=== PATIENT | female | born 1945 | race Caucasian/White ===

== ENCOUNTER → 2023-08-12 13:02 | Outpatient (REF) | payer MEDICARE, SELFPAY ==
[2023-08-12 13:35] LABS: Hemoglobin 9.3 g/dL (12.0-16.0); Mean Corp Hgb Conc. 33.2 g/dL (33.0-37.0); Mean Corpuscular Hgb 33.6 pg (27.0-31.0); Mean Corpuscular Volume 101.1 fL (81.0-99.0); Mean Platelet Volume 10.7 fL (7.4-10.4); Platelet Count 149 10^3/uL (130-400); Red Blood Cell Count 2.77 10^6/uL (4.20-5.40); Red Cell Dist. Width 21.4 % (11.5-14.5); White Blood Cell Count 1.7 10^3/uL (4.8-10.8)
[2023-08-12 14:09] LABS: Absolute Neutrophils -Man Diff 0.5 10^3/uL (1.4-6.5); Band Neutrophils 0 % (0-3); Eosinophils 2 % (0-6); Lymphocytes 35 % (20-51); Monocytes 25 % (2-9); Myelocytes 3 % (-); Platelets Checked Yes; Segmented Neutrophils 34 % (42-75)
[2023-08-12 14:10] LABS: Anisocytosis 1+; Normal RBC Morphology No; Ovalocytes Slight; Total Cells Counted 100
[2023-08-12 15:08] LABS: ALT (SGPT) 19 U/L (0-35); AST (SGOT) 35 U/L (14-36); Albumin 3.7 g/dl (3.5-5.0); Alkaline Phosphatase 85 U/L (38-126); Blood Urea Nitrogen 20 mg/dl (7-17); Calcium 9.3 mg/dl (8.4-10.2); Carbon Dioxide 22 mmol/L (22-30); Chloride 112 mmol/L (98-107); Glucose 82 mg/dl (70-99); Potassium 3.9 mmol/L (3.5-5.1); Sodium 139 mmol/L (135-145); Total Bilirubin 0.5 mg/dl (0.2-1.3); Total Protein 6.5 g/dl (6.3-8.2); eGFR > 60.00
== END ==
LOC: REG 13:02
PROVIDERS: ATTENDING PHYSICIAN Internal Medicine Hematology & Oncology; FAMILY PHYSICIAN Student in an Organized Health Care Education/Training Program
DX: C20 Malignant neoplasm of rectum (principal)
CPT/HCPCS: 36415; 80053; 85025

== ENCOUNTER → 2023-08-19 11:05 | Outpatient (REF) | payer MEDICARE, SELFPAY ==
[2023-08-19 11:59] LABS: % Basophils 0.7 % (0-2); % Eosinophils 1.9 % (0-6); % Immature Granulocytes 1.4 % (0-0.5); % Lymphocytes 13.2 % (20.5-51.1); % Monocytes 13.4 % (1.7-9.3); % Neutrophils 69.4 % (42.2-75.2); Absolute Eosinophils 0.1 10^3/uL (0-0.7); Absolute Immature Granulocytes 0.1 10^3/uL (0-0.05); Absolute Lymphocytes 0.6 10^3/uL (1.2-3.4); Absolute Monocytes 0.6 10^3/uL (0.1-0.6); Hematocrit 28.5 % (37.0-47.0); Hemoglobin 9.3 g/dL (12.0-16.0); Mean Corp Hgb Conc. 32.6 g/dL (33.0-37.0); Mean Corpuscular Hgb 33.9 pg (27.0-31.0); Mean Platelet Volume 11.1 fL (7.4-10.4); Nucleated Red Blood Cells % 0 %; Platelet Count 146 10^3/uL (130-400); Red Blood Cell Count 2.74 10^6/uL (4.20-5.40); Red Cell Dist. Width 19.1 % (11.5-14.5); White Blood Cell Count 4.3 10^3/uL (4.8-10.8)
[2023-08-19 12:51] LABS: ALT (SGPT) 15 U/L (0-35); AST (SGOT) 32 U/L (14-36); Albumin 3.5 g/dl (3.5-5.0); Alkaline Phosphatase 76 U/L (38-126); Blood Urea Nitrogen 32 mg/dl (7-17); Calcium 9.8 mg/dl (8.4-10.2); Carbon Dioxide 25 mmol/L (22-30); Chloride 105 mmol/L (98-107); Glucose 89 mg/dl (70-99); Potassium 4.3 mmol/L (3.5-5.1); Sodium 138 mmol/L (135-145); Total Bilirubin 0.5 mg/dl (0.2-1.3); Total Protein 6.3 g/dl (6.3-8.2); eGFR > 60.00
== END ==
LOC: REG 11:05
PROVIDERS: ATTENDING PHYSICIAN Internal Medicine Hematology & Oncology; FAMILY PHYSICIAN Student in an Organized Health Care Education/Training Program
DX: C20 Malignant neoplasm of rectum (principal)
CPT/HCPCS: 36415; 80053; 85025

== ENCOUNTER → 2023-09-02 12:00 | Outpatient (REF) | payer MEDICARE, SELFPAY ==
[2023-09-02 12:56] LABS: % Basophils 1.2 % (0-2); % Eosinophils 1.2 % (0-6); % Immature Granulocytes 0.3 % (0-0.5); % Lymphocytes 14.6 % (20.5-51.1); % Monocytes 13.6 % (1.7-9.3); % Neutrophils 69.1 % (42.2-75.2); Absolute Lymphocytes 0.5 10^3/uL (1.2-3.4); Absolute Monocytes 0.4 10^3/uL (0.1-0.6); Absolute Neutrophils 2.2 10^3/uL (1.4-6.5); Hematocrit 24.1 % (37.0-47.0); Hemoglobin 7.9 g/dL (12.0-16.0); Mean Corp Hgb Conc. 32.8 g/dL (33.0-37.0); Mean Corpuscular Hgb 33.3 pg (27.0-31.0); Mean Corpuscular Volume 101.7 fL (81.0-99.0); Mean Platelet Volume 11.9 fL (7.4-10.4); Nucleated Red Blood Cells % 0 %; Platelet Count 80 10^3/uL (130-400); Red Blood Cell Count 2.37 10^6/uL (4.20-5.40); Red Cell Dist. Width 18.6 % (11.5-14.5); White Blood Cell Count 3.2 10^3/uL (4.8-10.8)
[2023-09-02 13:32] LABS: ALT (SGPT) 21 U/L (0-35); AST (SGOT) 39 U/L (14-36); Albumin 3.5 g/dl (3.5-5.0); Alkaline Phosphatase 77 U/L (38-126); Blood Urea Nitrogen 25 mg/dl (7-17); Calcium 9.2 mg/dl (8.4-10.2); Carbon Dioxide 20 mmol/L (22-30); Chloride 112 mmol/L (98-107); Glucose 88 mg/dl (70-99); Potassium 4.1 mmol/L (3.5-5.1); Sodium 138 mmol/L (135-145); Total Bilirubin 0.5 mg/dl (0.2-1.3); Total Protein 6.2 g/dl (6.3-8.2); eGFR > 60.00
== END ==
LOC: REG 12:00
PROVIDERS: ATTENDING PHYSICIAN Internal Medicine Hematology & Oncology
DX: C20 Malignant neoplasm of rectum (principal)
CPT/HCPCS: 36415; 80053; 85025

== ENCOUNTER 2023-09-05 09:19 | Outpatient (RCR) | payer MEDICARE, SELFPAY ==
[2023-09-05] VITALS (7 sets, daily range): BP systolic 90–110; BP diastolic 51–66
--- NOTE | 2023-09-05 14:35 | PTCARENOTE ---
1300: Pt receiving second unit of PRBC and developed AFIB with heart rate as high as 150. LUZ MARINA Oswald assessment patient and sent patient to the ER. Dr. Henderson aware.
--- NOTE | 2023-09-05 15:39 | W.PN.UPDATE ---
Update Note
- Progress Note Update
09/05/23 1300
Patient seen at bedside receiving blood transfusion. Per treating [facility] EDWARD Cantrell patient's HR upon admission was 60s and now up into the 150s. Patient assessed. Denies SOB, chest pain, nausea, pain, flutters, palpitations. Has history of
afib after transfusion. On no anticoagulants. On PE HR irregular consistent with possible arrythmia or afib and ROS negative. Patient [place] [facility] was receiving 2nd unit when symptoms occurred. Came to appt alone and drove self to appt. Reports
taking anti-nausea medication this am. Being treated for rectal ca per Dr. Henderson. Chemo pump to be d/c by RN at [facility] at 2pm today as treatment completed and was discontinued by [facility] EDWARD Polk. Plan to send to ER for evaluation.
Beatriz and ER made aware. Patient in agreement. Contact information provided.
--- NOTE | 2023-09-11 17:29 | EDRN ---
This justowriter operator is completing the electronic documentation for [facility] only and did not provide direct patient care during this visit. See the scanned blood transfusion form in ED reports.
== END 2023-09-05 23:59 | disposition home or self-care (01) ==
LOC: OID 09:19
PROVIDERS: ATTENDING PHYSICIAN Internal Medicine Hematology & Oncology
DX: C20 Malignant neoplasm of rectum (principal)
CPT/HCPCS: 36430; 86850; 86900; 86901; 86920; P9016

== ENCOUNTER 2023-09-05 13:39 | Emergency (ER) | payer MEDICARE, SELFPAY ==
[2023-09-05] VITALS (10 sets, daily range): BP systolic 82–106; BP diastolic 53–71; BMI 26.4
--- NOTE | 2023-09-05 14:20 | ED.GENMED ---
History of Present Illness
General
Chief Complaint: Heart Rate Problem
Source: patient and other ([facility] nurse)
Exam Limitations: none
Time Seen by Provider: 09/05/23 13:54
Nursing documentation reviewed up to this point in time: agreed with
Travel History
Have you had any contact with someone who has COVID-19?: No
Do you have any symptoms of coronavirus? Fever > 100 degrees, chills, cough, shortness of breath, sore throat, loss of taste or smell, muscle aches, or headache?: No
History of Present Illness
History of Present Illness:
78-year-old female present to the emergency department due to rapid heart rate. She was getting a blood transfusion after chemotherapy, and the RN noticed her heart rate was in the 150s on exam. She was sent to the emergency department. Patient
denies any complaints.
Past History
Past History
ED Past Medical History: Arrthythmia, Hypothyroidism and Other (Aortic stenosis)
ED Past Surgical History: Appendectomy, Tonsilectomy and Other (Laparoscopy with cyst aspiration)
Social History
Tobacco: Former smoker
Alcohol: None
Drug: None
Review of Systems
Review of Systems
Allergies reviewed?: Yes
All Other Systems: Not applicable
Constitutional: Reports no symptoms
EENT: Reports no symptoms
Respiratory: Reports no symptoms
Cardiac: Reports other (Rapid heart rate)
ABD/GI: Reports no symptoms
: Reports no symptoms
Musculoskeletal: Reports no symptoms
Skin: Reports no symptoms
Neurological: Reports dizzy
Endocrine: Reports no symptoms
Hematologic/Lymphatic: Reports no symptoms
Psychiatric: Reports no symptoms
Phy Exam
Physical Exam
Physical Exam:
Physical Exam
General: Blood pressure 88/53
Neck: supple. no meningeal signs. normal posterior pharynx
Heart: s1/s2 regular rate and rhythm, no murmur. equal radial
pulses.
HEENT: Pupils equal round reactive to light, EOMI
Lungs: no acute respiratory distress. clear bilaterally
Abdomen: normal bowel sounds. not tender. no CVAT
Neuro: alert and oriented. no focal neurological deficits cranial nerves II through XII intact
Skin: no rash
Psychiatric: well kept. interactive and cooperative
Extremities: no edema. no calf tenderness. negative homans. good distal pulses
Course
Orders/Labs/Results
Orders:
Orders
09/05/23 13:49
EKG [Electrocardiogram (*1)] Urgent
Reason for Study: Atrial Fibrillation
EKG- Treatment ONCE
Vital Signs
Initial and Last Documented VS:
Initial Vital Signs
Temp Pulse Resp Pulse Ox
98.8 F 87 18 100
09/05/23 14:01 09/05/23 14:01 09/05/23 14:01 09/05/23 14:01
Last Documented Vital Signs
Temp Pulse Resp BP Pulse Ox
99.1 F 85 18 100/67 98
09/05/23 14:58 09/05/23 15:15 09/05/23 15:15 09/05/23 15:15 09/05/23 14:58
MDM/Problems Addressed
Differential Diagnosis Includes:
Rapid atrial fibrillation, near syncope
MDM/Problems Addressed:
78-year-old female with episodic tachycardia, possibly rapid atrial fibrillation. Patient feels well after receiving blood transfusion. Will discharge to follow-up with oncology and primary care.
Chronic conditions affecting care: Arrhythmia and Cancer
Acute Exacerbation and/or Progression of Chronic Illness: Arrhythmia and Cancer
*Pulse Oximetry
Patient hypoxic: no
*EKG
Interpreted by ED Provider?: Yes
EKG Intrepretation Date: 09/05/23
EKG Intrepretation Time: 13:57
Interpretation: abnormal
Comparison EKG: no changes
Heart Rate: 96
Rate: normal
Rhythm: sinus
[place]: normal axis
Interval: normal interval
QRS Pattern: left vent hypertrophy
Ischemia: non-specific ST changes
*Activity Leader Interpretation
Rate: normal
Interpretation: normal
Heart Rate: 80
Rhythm: sinus
*Critical Care Note
Total Time (30-74mins, 75-104mins- exclusive of procedures): Not Applicable
Data Reviewed
Review of Other/Old Records Reveals: Labs (Prior hemoglobin 7.9 on 09/02/2023)
Source: records
Patient Management
Social determinants of health affecting care: Living situation and Strong social support
Escalation/DeEscalation of care consider admission/obs:
Admit not indicated
ED Attending Note
-
Portions of this chart may have been created with voice recognition software.� Occasional wrong word or��sound alike� substitutions may have occurred due to the inherent limitations of voice recognition software.
Discharge Plan
Departure
Patient Disposition: Home (Routine Discharge)
Date of Disposition: 09/05/23
Time of Disposition: 15:32
Patient with high blood pressure during this ER visit?: No
Condition: Good
Discharge Problem:
Atrial fibrillation with rapid ventricular response, Hypochromic microcytic anemia
Instructions: Atrial Fibrillation (DC)
Prescriptions:
No Action
sertraline [Zoloft] 25 mg Tablet
25 mg PO DAILY
Referrals:
Allyson Marie DO [Family Provider] - Call in 1-3 days for appt
Interventions
Interventions:
*Risk Screen - Suicide Last Done: 09/05/23 14:01
*General Assessment Last Done: 09/05/23 14:01
*Neglect/Abuse Screening Last Done: 09/05/23 14:01
ED- Fall Risk Assessment Last Done: 09/05/23 14:01
*ED COVID-19 Vaccine History Last Done: 09/05/23 14:01
ED- Cardiac Assessment Last Done: 09/05/23 14:01
ED- Pulmonary Assessment Last Done: 09/05/23 14:01
--- NOTE | 2023-09-05 15:55 | VATNOTE ---
deaccessed left port from [facility] per protocol.
== END 2023-09-05 16:16 | disposition home or self-care (01) ==
LOC: EMR 13:39
PROVIDERS: EMERGENCY PHYSICIAN Emergency Medicine; FAMILY PHYSICIAN Student in an Organized Health Care Education/Training Program
DX: I48.91 Unspecified atrial fibrillation (principal); D50.9 Iron deficiency anemia, unspecified; Z87.891 Personal history of nicotine dependence
CPT/HCPCS: 99284; 96374; 93005

== ENCOUNTER → 2023-09-16 12:36 | Outpatient (REF) | payer MEDICARE, SELFPAY ==
[2023-09-16 14:00] LABS: % Basophils 0.9 % (0-2); % Eosinophils 1.5 % (0-6); % Immature Granulocytes 0.3 % (0-0.5); % Lymphocytes 12.9 % (20.5-51.1); % Monocytes 12.6 % (1.7-9.3); % Neutrophils 71.8 % (42.2-75.2); Absolute Eosinophils 0.1 10^3/uL (0-0.7); Absolute Lymphocytes 0.4 10^3/uL (1.2-3.4); Absolute Monocytes 0.4 10^3/uL (0.1-0.6); Absolute Neutrophils 2.4 10^3/uL (1.4-6.5); Hemoglobin 7.8 g/dL (12.0-16.0); Mean Corp Hgb Conc. 33.9 g/dL (33.0-37.0); Mean Corpuscular Hgb 33.9 pg (27.0-31.0); Mean Platelet Volume 11.3 fL (7.4-10.4); Nucleated Red Blood Cells % 0 %; Platelet Count 73 10^3/uL (130-400); Red Cell Dist. Width 19.9 % (11.5-14.5); White Blood Cell Count 3.3 10^3/uL (4.8-10.8)
[2023-09-16 14:42] LABS: ALT (SGPT) 21 U/L (0-35); AST (SGOT) 39 U/L (14-36); Albumin 3.5 g/dl (3.5-5.0); Alkaline Phosphatase 72 U/L (38-126); Blood Urea Nitrogen 19 mg/dl (7-17); Calcium 9.2 mg/dl (8.4-10.2); Carbon Dioxide 24 mmol/L (22-30); Chloride 113 mmol/L (98-107); Glucose 111 mg/dl (70-99); Sodium 141 mmol/L (135-145); Total Bilirubin 0.6 mg/dl (0.2-1.3); eGFR > 60.00
[2023-09-16 14:52] LABS: Total Iron Binding Capacity 355 ug/dl (265-497)
[2023-09-16 15:17] LABS: Ferritin 88.2 ng/ml (11.1-264.0)
== END ==
LOC: REG 12:36
PROVIDERS: ATTENDING PHYSICIAN Internal Medicine Hematology & Oncology
DX: C20 Malignant neoplasm of rectum (principal)
CPT/HCPCS: 36415; 80053; 82728; 83550; 85025

== ENCOUNTER 2023-09-20 11:02 | Outpatient (RCR) | payer MEDICARE, SELFPAY ==
[2023-09-20 11:05] VITALS: BP 121/48
[2023-09-20 11:37] VITALS: BP 121/48
[2023-09-20 11:54] VITALS: BP 104/58
[2023-09-20 13:57] VITALS: BP 128/68
== END 2023-10-06 23:59 | disposition home or self-care (01) ==
LOC: OID 11:02
PROVIDERS: ATTENDING PHYSICIAN Internal Medicine Hematology & Oncology
DX: C20 Malignant neoplasm of rectum (principal)
CPT/HCPCS: 36430; 86850; 86900; 86901; 86920; P9016

== ENCOUNTER 2023-09-25 17:54 | Inpatient (IN) | payer MEDICARE, SELFPAY ==
[2023-09-25] VITALS (18 sets, daily range): BP systolic 88–138; BP diastolic 42–80; BMI 26.3
[2023-09-25 13:44] LABS: % Basophils 0.4 % (0-2); % Eosinophils 1.6 % (0-6); % Immature Granulocytes 1.6 % (0-0.5); % Lymphocytes 12.9 % (20.5-51.1); % Monocytes 7.7 % (1.7-9.3); % Neutrophils 75.8 % (42.2-75.2); Absolute Lymphocytes 0.3 10^3/uL (1.2-3.4); Absolute Monocytes 0.2 10^3/uL (0.1-0.6); Absolute Neutrophils 1.9 10^3/uL (1.4-6.5); Hematocrit 21.9 % (37.0-47.0); Hemoglobin 7.6 g/dL (12.0-16.0); Mean Corp Hgb Conc. 34.7 g/dL (33.0-37.0); Mean Corpuscular Hgb 34.2 pg (27.0-31.0); Mean Corpuscular Volume 98.6 fL (81.0-99.0); Nucleated Red Blood Cells % 0.8 %; Red Blood Cell Count 2.22 10^6/uL (4.20-5.40); Red Cell Dist. Width 19.3 % (11.5-14.5); White Blood Cell Count 2.5 10^3/uL (4.8-10.8)
--- NOTE | 2023-09-25 13:48 | CON.CRS ---
Consultation
-
Date/Time Consultation Requested: 09/25/2023, 13:40
Date/Time Consultation Performed: 09/25/2023, 14:00
Requesting Provider: Baljinder Marsh MD
Performing Provider: Arturo Tenorio MD
Reason for Consultation: rectal bleeding
Medical History
-
Chief Complaint: rectal bleeding
History of Present Illness:
78yo female with known rectal cancer presents from the ER from clinic by Dr. Tenorio. Initially she was add-on visit today for the evaluation of rectal bleeding. She was diagnosed in February 2023 with a [id number] (Stage IIIB) pMMR/MSI-L, mid-rectal
cancer that straddles the peritoneal reflection. She received chemoradiation that completed on 05/03/23. She just completed her 7th cycle of 9 (FOLFOX). She has been passing some blood per rectum approximately once per month but over the past 6
weeks there is dark and red blood with every bowel movement. She also notices some urgency related incontinence of both stool and urine. Her hemoglobin on 09/16/23 was 7.8 g/dL and her platelet count was 73,000. She received 2 units of blood. She
denies any abdominal pain, lightheadedness, dizziness, or chest pain. She has a history of severe aortic stenosis and is a candidate for a TAVR once her chemotherapy and restaging are complete. She is scheduled for cycle #8 on 10/02/2023. She
tolerated the regimen fairly well with minor paresthesias and some diarrhea, although she has a chronic history of loose stools. During exam in clinic, old and new blood was noted in the rectum under anoscopy. She was sent to the ER given the need
for further work-up.
Past Medical History
Past Medical History: Arrhythmias (afib), Cancer (rectal cancer) and Other (measles, h/o chicken pox. discoid lupus, osteoarthritis, h/o PNA, severe aortic stenosis)
Past Surgical History: Appendectomy, Tonsilectomy and Other (port placement)
Social History
Tobacco: Former Smoker (1ppd x 48 years)
Family History
Family History: Reviewed & Not Pertinent
Allergies / Home Medications
Allergy/AdvReac Type Severity Reaction Status Date / Time
Penicillins Allergy Hives Verified 09/25/23 13:27
Medication Instructions Recorded Confirmed Type
sertraline 25 mg tablet (Zoloft) 50 mg PO DAILY 04/09/23 09/20/23 History
Review of Systems
-
History Source: Patient
Abdomen/GI: Diarrhea and Bloody Stools
: Urgency
A 10 point review of systems was completed, and was negative except as per HPI.
Physical Exam
Vital Signs
Temp 98.4 F 09/25/23 13:24
Pulse 95 09/25/23 13:24
Resp Rate 18 09/25/23 13:24
Blood pressure 122/80 09/25/23 13:24
SaO2 100 09/25/23 13:24
Lab Results / Allergies
Allergy/AdvReac Type Severity Reaction Status Date / Time
Penicillins Allergy Hives Verified 09/25/23 13:27
Physical Exam
General: Well Developed, Well Nourished and No Apparent Distress
GI: Soft, Non Tender and Non Distended
Rectal: Other (mix of dark and bright red blood in rectum under anoscopy in the office earlier today, unable to visualize anything further)
Neuro: AO x 3
Data Reviewed
-
Old Records: Reviewed
Assessment / Plan
-
Assessment: 78yo female with known stage IIIB rectal cancer, currently undergoing chemotherapy prior to surgery, with known anemia s/p multiple transfusions, presents from the ED from clinic with BRB per rectum and fecal urgency
Plan:
Recommend labs - cbc, bmp, coags, type and screen and CEA level. Remain NPO for now. Possible flexible sigmoidoscopy by Dr. Tenorio either later today or tomorrow depending on labwork. Once resulted, plans from there, will follow.
[2023-09-25 14:02] LABS: ALT (SGPT) 24 U/L (0-35); AST (SGOT) 46 U/L (14-36); Albumin 3.7 g/dl (3.5-5.0); Alkaline Phosphatase 94 U/L (38-126); Blood Urea Nitrogen 24 mg/dl (7-17); Calcium 8.8 mg/dl (8.4-10.2); Carbon Dioxide 25 mmol/L (22-30); Chloride 109 mmol/L (98-107); Glucose 93 mg/dl (70-99); Potassium 3.5 mmol/L (3.5-5.1); Sodium 139 mmol/L (135-145); Total Bilirubin 0.6 mg/dl (0.2-1.3); Total Protein 6.2 g/dl (6.3-8.2); eGFR > 60.00
[2023-09-25 14:24] LABS: Mean Platelet Volume 12.4 fL (7.4-10.4); Platelet Count 64 10^3/uL (130-400)
--- NOTE | 2023-09-25 16:18 | HPS.HSE ---
Addendum entered and electronically signed by Bo Reed MD 09/25/23 17:22:
I saw and examined the patient.
The EXTERNAL GRINDER or PA's note was reviewed and I agree with the note.
Comment: History as noted and discussed with EXTERNAL GRINDER and examined. She is presently hemodynamically stable with ongoing episodes of bright red blood per rectum that has been a mix of dark intermittent clots prior/ she is now admitted to pursue further
diagnostic evaluation with flex sig in a.m. patient also with a known history of severe aortic stenosis that will require eventual TAVR once she has completed chemotherapy and staging of her rectal CA. Based on her previous presentation and the
need for hemodynamic stability we will plan on giving 1 unit of packed red blood cells tonight given the description of intermittent dark stools will also place on a PPI /she has signed a blood consent. Will need to watch her ongoing
thrombocytopenia which is down to 64,000 in the setting of underlying pancytopenia presumably from her chemotherapy/although presents with significant peripheral edema I do not think she is in fluid overload or signs of congestive heart failure with
may be in relation to underlying anemia and hypoalbuminemia/although given the degree of her aortic stenosis we will need to watch for CHF and if needs more than 1 unit of packed red blood cells would give IV diuresis in between units of blood.
Original Note:
Family Physician
-
Family Physician: Alexis Marie DO
Chief Complaint
-
rectal bleeding
History of Present Illness
78-year-old female complaining of rectal bleeding over the past month but over the past 6 weeks she states it has been dark and red with clots over the past few days.. On 09/16/2023 her hemoglobin was 7 8 with PLT 73 she did receive 2 units of
PRBCs. Her current hemoglobin is 7.6. She denies dizziness, headache, shortness of breath, cough, chest pain, palpitations, abdominal pain, nausea, vomiting, diarrhea, urinary symptoms she has known history of adenocarcinoma of the rectum stage
IIIb via rectal mass biopsy 02/12/2023 received chemo/radiation completed 05/03/2023 in addition to 7 cycles of FOLFOX. She follows with [facility]. She was sent to the ER today by colorectal surgery for scope in a.m.. She has other past
medical history of A-fib no AC therapy, discoid lupus, former smoker 1 pack a day 48 years, severe aortic stenosis, OA.
Medical History
Past Medical History
Past Medical History: Reports Other
Additional Past Medical History:
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
A-fib no AC therapy
severe aortic stenosis
discoid lupus
former smoker 1 pack a day 48 years
OA.
Past Surgical History: Reports Other
Additional Past Surgical History:
Port placement
Appendectomy
Tonsillectomy
Social History
Tobacco: Former Smoker (1ppdd quit 48 years ago )
Alcohol: None
Drug: None
Living: With Family
Employment: Retired
Family History
Family History: Other (Mom chf, copd Dad- AAA ruptured CVA)
Allergies / Home Medications
Allergies reflects when Allergies were last updated in [facility].
Home Medications with original date entered in [facility]
Allergy/Medication List:
Allergies
Allergy/AdvReac Type Severity Reaction Status Date / Time
Penicillins Allergy Hives Verified 09/25/23 13:27
Home Medications
Biotin (B7) 1 tab PO NOON 09/25/23
cyanocobalamin (vitamin B-12) 1 tab PO NOON 09/25/23
loperamide 2 mg capsule 2 mg PO BID 09/25/23
loperamide 2 mg capsule 2 mg PO BIDPRN PRN diarrhea 09/25/23
pantothenic acid (vit B5) 1 tab PO NOON 09/25/23
sertraline 50 mg tablet 50 mg PO NOON 09/25/23
vitamin B complex 1 tab PO NOON 09/25/23
Review of Systems
-
History Source: Patient
A 12 point ROS was completed and negative except as noted: Yes
Constitutional: Denies Fever or Fatigue
EENT: Denies Runny Nose
Respiratory: Denies Cough or Trouble Breathing
Cardiac: Denies Chest Pain, Diaphoresis, Palpitations or Syncope
Abdomen/GI: Reports Bloody Stools and Black Stools; Denies Abdominal Pain, Nausea, Vomiting, Diarrhea or Constipated
: Denies Dysuria, Frequency, Flank Pain, Incontinence or Difficulty Voiding
Musculoskeletal: Denies Joint Pain or Edema
Skin: Denies Itching or Rash
Neurological: Denies Dizzy, Headache or Weakness
Endocrine: Reports No Symptoms
Hematologic/Lymphatic: Reports No Symptoms
Psych: Reports Calm
Physical Exam
Vital Signs
Vital Signs
Temp Pulse Resp BP Pulse Ox
98.4 F 95 18 122/80 100
09/25/23 13:24 09/25/23 13:24 09/25/23 13:24 09/25/23 13:24 09/25/23 13:24
Physical Exam
General: Comfortable and Conversant; No Pain, Fever or Chills
HEENT: NormoCephalic, Anicteric, PERRLA, [place] Conjunctivae and Hearing Impaired
Respiratory: Clear; No Wheezes, Rales or Rhonchi
Cardiac: S1/S2 and Regular Rhythm; No Murmur, Rub, Gallop or Peripheral Edema
Breast: Deferred by me
GI: Soft, Non Tender, Non Distended, Normal Bowel Sounds and No Hepatosplenomegaly
Rectal: Deferred by Provider
Genito-urinary: Deferred by me
Musculoskeletal: No Clubbing, No Cyanosis, Edema, Left Lower Extremity and Edema, Right Lower Extremity
Skin: Warm and Dry; No Rash
Neuro: No Motor Deficits, Nonfocal/grossly intact, Cranial Nerves Intact and Other (chronic [place]); No Slurred Speech, Facial Droop or Tremors
Psych: Calm
Laboratory Results
-
09/25/23 13:35
09/25/23 13:35
Laboratory Results
Total Bilirubin 0.6 mg/dl (0.2-1.3) 09/25/23 13:35
AST 46 U/L (14-36) H 09/25/23 13:35
ALT 24 U/L (0-35) 09/25/23 13:35
Alkaline Phosphatase 94 U/L (38-126) 09/25/23 13:35
Impression/Plan
-
Impression/plan:
Admit to TELE
#Rectal bleeding with Anemia
#Known Adenocarcinoma rectum Dx 02/12/2023 stage IIIb
Received chemo/radiation completed 05/03/2023 in addition to 01/13 cycle of FOLFOX.Last chemo
#Port present left upper chest wall
-Follows with [facility]
-COnsult COLORECTAL
-NPO
-Hgb 7.6 <7.8 status post blood transfusion 09/16/2023
-Will give 1 unit prbc's
- cbc bmp in am
-Iv PPI bid
#Chronic pancytopenia
WBC 2.5, PLT 64, Hgb 7.6
#Severe aortic stenosis
is for poss TAVR post chemo
2D echo 07/26/2023: EF 60-65% mildly dilated left ventricle, mild LVH, moderate MR, severe peak gradient 126 mmHg mean 76 mmHg
#A-fib no AC therapy, no rate control meds
#Discoid lupus
#Former smoker 1 pack a day 48 years
#Anxiety
-Continue Zoloft 50 mg
#OA
DVT prophylaxis
SCDs
Full code
--- NOTE | 2023-09-25 16:38 | ED.GENMED ---
History of Present Illness
General
Chief Complaint: Rectal Bleeding
Source: patient
Exam Limitations: none
Time Seen by Provider: 09/25/23 15:37
Nursing documentation reviewed up to this point in time: agreed with
Travel History
Have you had any contact with someone who has COVID-19?: No
Do you have any symptoms of coronavirus? Fever > 100 degrees, chills, cough, shortness of breath, sore throat, loss of taste or smell, muscle aches, or headache?: No
History of Present Illness
History of Present Illness:
78-year-old female with concerns of rectal bleeding was seen by her colorectal surgeon today sent in for scope. She has had some generalized fatigue does of a history of rectal cancer no surgery at undergoing chemo currently.
Past History
Past History
ED Past Medical History: Arrthythmia, Hypothyroidism and Other (Aortic stenosis)
ED Past Surgical History: Appendectomy, Tonsilectomy and Other (Laparoscopy with cyst aspiration)
Social History
Tobacco: Former smoker
Alcohol: None
Drug: None
Review of Systems
Review of Systems
Allergies reviewed?: Yes
All Other Systems: ROS reviewed and negative except as documented in HPI and ROS
Phy Exam
Physical Exam
Physical Exam:
GENERAL: Alert , in no apparent distress
EYE: pupils equal and reactive
NECK: Supple, no significant adenopathy.
ENT: o/p clr, mmm.
CARDIAC: Regular rate and rhythm .
LUNGS: Clear breath sounds bilaterally, no acute respiratory distress, no wheezes/rales/rhonchi
ABDOMEN: Soft, without focal tenderness, no r/g, no cvat deferred rectal exam considering colorectal already evaluated this earlier today.
NEUROLOGICAL: Alert and oriented, no focal neuro deficits
SKIN: Warm and dry, skin intact.
MUSCULOSKELETAL: No edema, well perfused.
PSYCH: Normal and appropriate interaction.
Deferred rectal examination considering colorectal has
Course
Orders/Labs/Results
Orders:
Orders
09/25/23 13:31
CEA Urgent
09/25/23 13:32
PT/INR [Prothrombin Time] Urgent
PTT Urgent
09/25/23 13:35
CMP [Comprehensive Metabolic Panel] Urgent
Complete Blood Count/With Diff Urgent
09/25/23 15:52
Type+Screen Urgent
Abnormal Lab Results
09/25/23
13:35
WBC 2.5 L 10^3/uL
(4.8-10.8)
RBC 2.22 L 10^6/uL
(4.20-5.40)
Hgb 7.6 L g/dL
(12.0-16.0)
Hct 21.9 L %
(37.0-47.0)
MCH 34.2 H pg
(27.0-31.0)
RDW 19.3 H %
(11.5-14.5)
Plt Count 64 L 10^3/uL
(130-400)
MPV 12.4 H fL
(7.4-10.4)
Absolute Lymphs (auto) 0.3 L 10^3/uL
(1.2-3.4)
Immature Gran % 1.6 H %
(0-0.5)
Neutrophils % 75.8 H %
(42.2-75.2)
Lymphocytes % 12.9 L %
(20.5-51.1)
Chloride 109 H mmol/L
(98-107)
BUN 24 H mg/dl
(7-17)
AST 46 H U/L
(14-36)
Total Protein 6.2 L g/dl
(6.3-8.2)
09/25/23 13:35
09/25/23 13:35
Vital Signs
Initial and Last Documented VS:
Initial Vital Signs
Temp Pulse Resp BP Pulse Ox
98.4 F 95 18 122/80 100
09/25/23 13:24 09/25/23 13:24 09/25/23 13:24 09/25/23 13:24 09/25/23 13:24
Last Documented Vital Signs
Temp Pulse Resp BP Pulse Ox
98.4 F 95 18 122/80 100
09/25/23 13:24 09/25/23 13:24 09/25/23 13:24 09/25/23 13:24 09/25/23 13:24
MDM/Problems Addressed
MDM/Problems Addressed:
78-year-old female presenting to the emergency department today with concerns of rectal bleeding. Patient was assessed by colorectal surgery earlier today sent in for scope. Patient stable here normal vital signs globin at baseline patient
admitted to medicine service.
*Critical Care Note
Total Time (30-74mins, 75-104mins- exclusive of procedures): Not Applicable
ED Attending Note
-
Portions of this chart may have been created with voice recognition software.� Occasional wrong word or��sound alike� substitutions may have occurred due to the inherent limitations of voice recognition software.
Discharge Plan
Departure
Patient Disposition: Admit
Date of Disposition: 09/25/23
Time of Disposition: 16:40
Admit to: Med/Surg
Admit to doctor: Jose
Presentation/result/management discussed w/ accepting MD/DO: Hospitalist
Patient with high blood pressure during this ER visit?: No
Condition: Good
Covid-19: Not Applicable
Discharge Problem:
Acute GI bleeding
Prescriptions:
No Action
loperamide [Imodium] 2 mg Capsule
2 mg PO BID
loperamide [Imodium] 2 mg Capsule
2 mg PO BIDPRN PRN (Reason: diarrhea)
vitamin B complex Tablet
1 tab PO NOON
sertraline 50 mg Tablet
50 mg PO NOON
Biotin (B7)
1 tab PO NOON
cyanocobalamin (vitamin B-12)
1 tab PO NOON
pantothenic acid (vit B5)
1 tab PO NOON
Referrals:
Allyson Marie DO [Family Provider] -
Interventions
Interventions:
*Risk Screen - Suicide Last Done: 09/25/23 13:24
*General Assessment Last Done: 09/25/23 13:24
*Neglect/Abuse Screening Last Done: 09/25/23 13:24
*ED COVID-19 Vaccine History Last Done: 09/25/23 13:24
[2023-09-25 17:40] LABS: INR 1.17
[2023-09-25 17:41] LABS: APTT 31.4 Sec (23.4-35.0)
[2023-09-25] MEDS: NSS (PRESERVATIVE FREE) 10 ML IV (17:48)
[2023-09-25] MEDS: PROTONIX IV 40 MG IV (17:48)
[2023-09-25] MEDS: FLUSH (NSS) 2 FLUSH IV (17:49)
[2023-09-25 18:17] LABS: CEA 14.2 ng/ml
[2023-09-26] VITALS (12 sets, daily range): BP systolic 91–142; BP diastolic 50–81; BMI 26.3
--- NOTE | 2023-09-26 00:41 | PTCARENOTE ---
Received pt from ED via stretcher. Pt ambulated to bed with stand by assist, some unsteadiness noted. AAOx3, VSS, no complaints of pain at this time. Oriented to floor, call desai within reach.
[2023-09-26 06:47] LABS: % Eosinophils 4.4 % (0-6); % Immature Granulocytes 1.5 % (0-0.5); % Lymphocytes 15.2 % (20.5-51.1); % Monocytes 9.8 % (1.7-9.3); % Neutrophils 68.1 % (42.2-75.2); Absolute Eosinophils 0.1 10^3/uL (0-0.7); Absolute Lymphocytes 0.3 10^3/uL (1.2-3.4); Absolute Monocytes 0.2 10^3/uL (0.1-0.6); Absolute Neutrophils 1.4 10^3/uL (1.4-6.5); Hemoglobin 7.1 g/dL (12.0-16.0); Mean Corp Hgb Conc. 33.8 g/dL (33.0-37.0); Mean Corpuscular Hgb 32.1 pg (27.0-31.0); Nucleated Red Blood Cells % 2.5 %; Platelet Count 57 10^3/uL (130-400); Red Blood Cell Count 2.21 10^6/uL (4.20-5.40); Red Cell Dist. Width 19.9 % (11.5-14.5)
[2023-09-26 07:12] LABS: Blood Urea Nitrogen 21 mg/dl (7-17); Calcium 8.3 mg/dl (8.4-10.2); Carbon Dioxide 27 mmol/L (22-30); Chloride 108 mmol/L (98-107); Estimated Creatinine Clearance 56 ml/min; Glucose 92 mg/dl (70-99); Potassium 3.2 mmol/L (3.5-5.1); Sodium 139 mmol/L (135-145); eGFR > 60.00
[2023-09-26] MEDS: ZOLOFT 50 MG PO (08:16)
[2023-09-26] MEDS: NSS (PRESERVATIVE FREE) 10 ML IV (08:16)
[2023-09-26] MEDS: PROTONIX IV 40 MG IV (08:16)
--- NOTE | 2023-09-26 09:27 | W.PN.HOSP.TC ---
Addendum entered and electronically signed by Bo Reed MD 10/07/23 14:11:
Pancytopenia in relation to ongoing chemotherapy
Addendum entered and electronically signed by Bo Reed MD 09/28/23 13:50:
Hypokalemia
Original Note:
Today's Communication/Plan
-
Continue monitoring H&H will change to every 8 hours
If flex sig no source of bleeding found may need bleeding scan
Transfuse another 2 units of packed red blood cells may need Lasix in between
Replete potassium
Assessment / Plan
Assessment / Plan
78-year-old female complaining of rectal bleeding over the past month but over the past 6 weeks she states it has been dark and red with clots over the past few days..� On 09/16/2023 her hemoglobin was 7 8 with PLT 73 she did receive 2 units of
PRBCs.� Her current hemoglobin is 7.6.� She denies dizziness, headache, shortness of breath, cough, chest pain, palpitations, abdominal pain, nausea, vomiting, diarrhea, urinary symptoms she has known history of adenocarcinoma of the rectum stage
IIIb via rectal mass biopsy 02/12/2023 received chemo/radiation completed 05/03/2023 in addition to 7 cycles of FOLFOX.� She follows with [facility].� She was sent to the ER today by colorectal surgery for scope in a.m..� She has other past
medical history of A-fib no AC therapy, discoid lupus, former smoker 1 pack a day 48 years, severe aortic stenosis, OA.
Admit to TELE
#Rectal bleeding with Anemia
#Known Adenocarcinoma rectum Dx 02/12/2023 stage IIIb
Received chemo/radiation completed 05/03/2023 in addition to 01/13 cycle of FOLFOX.Last chemo
#Port present left upper chest wall
-Follows with [facility]
-COnsult COLORECTAL
-NPO
-Hgb 7.6 <7.8 status post blood transfusion 09/16/2023
-Given 1 unit of packed RBCs on admission and an additional 2 units ordered for this morning
- cbc bmp in am
�-Iv PPI bid/suspect we can discontinue this
Acute blood loss anemia
--Hemoglobin present on admission of 7.6 now down to 7.1 in spite of blood transfusion 1 unit
-Given additional 2 units today
-May need to give him between IV Lasix
#Chronic pancytopenia
WBC 2.5, PLT 64, Hgb 7.6
#Severe aortic stenosis
�is for poss TAVR post chemo
��� 2D echo 07/26/2023: EF 60-65% mildly dilated left ventricle, mild LVH, moderate MR, severe peak gradient 126 mmHg mean 76 mmHg
#A-fib no AC therapy, no rate control meds
#Discoid lupus
#Former smoker 1 pack a day 48 years
#Anxiety
-Continue Zoloft 50 mg
�#OA
DVT prophylaxis
SCDs
Full code
Anticipated Discharge: 24 - 48 hours
Subjective/Interval History
-
Date of Service: September 26, 2023
Patient denies any chest pain and shortness of breath had 3 separate bowel movements all which passed bright red blood overnight she denies any cramping abdominal pain she continues to be convinced the area of bleeding is directly coming from her
rectal cancer
Objective Data
-
Labs:
Laboratory Results
09/26/23
05:04
WBC 2.0 L*
Hgb 7.1 L
Hct 21.0 L
Plt Count 57 L
Sodium 139
Potassium 3.2 L
Chloride 108 H
Carbon Dioxide 27
BUN 21 H
Creatinine 0.7
Glucose 92
Calcium 8.3 L
Vital Signs:
Vital Signs
Temp Pulse Resp BP Pulse Ox
98.1 F 52 18 108/50 97
09/26/23 07:00 09/26/23 07:00 09/26/23 07:00 09/26/23 07:00 09/26/23 07:00
I&O
09/25/23 09/26/23 09/27/23
06:59 06:59 06:59
Intake Total 250 / 250
Balance 250 / 250
Review of Systems
-
History Source: Patient
All other systems: Reviewed and negative
Respiratory: Reports No Symptoms
Cardiac: Reports No Symptoms
Abdomen/GI: Reports Diarrhea and Bloody Stools
Genitourinary: Reports No Symptoms
Musculoskeletal: Reports No Symptoms
Skin: Reports No Symptoms
Physical Exam
-
General: No Apparent Distress
HEENT: Normocephalic
Respiratory: Clear to Auscultation
Cardiac: Regular Rhythm
GI: Soft
Rectal: Hem Positive and Maroon Stools
Genito-urinary: No Costovertebral Tender
Musculoskeletal: Edema, Right Lower Extrem and Edema, Left Lower Extrem
Neuro: Awake, Alert, Oriented and AO x 3
Psych: Calm
Data Reviewed
-
Total Time Spent with Patient (in minutes): 56
Labs: Labs Reviewed by me (Hemoglobin down to 7.1 in spite of a single unit of blood being given overnight/white count 2.0)
--- NOTE | 2023-09-26 10:01 | CM ---
Patient seen at bedside. Patient indicated that she lives alone in a 2 story home with no VN or DME. Patient PCP is Dr. Marie and she uses the [facility]. Patient may not have medication coverage, CM will follow to confirm. CM will
continue to follow for discharge planning needs.
Plan; home with VN vs home with no needs.
[2023-09-26] MEDS: FLEET PHOSPHATE ENEMA-ADULT 135 ML RECTAL ×2 (10:11→11:39)
[2023-09-26 10:36] LABS: Hematocrit 24.7 % (37.0-47.0); Hemoglobin 8.5 g/dL (12.0-16.0)
--- NOTE | 2023-09-26 10:39 | W.PN.CRS1 ---
Today's Communication / Plan
-
flex sig
2 enemas this AM
NPO
Assessment/Plan
-
Assessment: 78yo female with known stage IIIB rectal cancer, currently undergoing chemotherapy prior to surgery, with known anemia s/p multiple transfusions, presents from the ED from clinic with BRB per rectum and fecal urgency
Plan:
1. Hemoglobin pending this AM. She received 2 units PRBCs yesterday. Hgb post transfusion was 8.5.
2. For flex sig today with Dr. Tenorio, likely around noon. 2 fleet enemas ordered this AM in preparation.
3. NPO for flex sig.
4. Plans to follow post flex sig.
Subjective Data
Subjective Data
Date of Service: September 26, 2023
Patient states she had rectal bleeding all throughout the night. She has no other complaints.
Objective Data
-
Vital Signs
Temp Pulse Resp BP Pulse Ox
98.1 F 81 18 108/50 97
09/26/23 07:00 09/26/23 07:00 09/26/23 07:00 09/26/23 07:00 09/26/23 07:00
Intake & Output
09/25/23 09/26/23 09/27/23
06:59 06:59 06:59
Intake Total 250 / 250
Balance 250 / 250
Intake:
Oral fluids 0 / 0
Blood Product Amount Infused ( 250 / 250
mL)
Packed Rbc Leukoreduced Unit 250 / 250
[id number]
Other:
Number of approximated MODERATE 1
amounts of urine
Lab Results
09/26/23 05:04
Physical Exam
-
General: No Acute Distress and AOx3
Abdomen: Soft, Non Distended and Non Tender
--- NOTE | 2023-09-26 13:44 | W.PN.UPDATE ---
Update Note
Progress Note Update
Flexible sigmoidoscopy revealed active oozing at the rectal cancer site. Treated with argon beam plasma client technical support associate. No bleeding at the completion.
[2023-09-26] MEDS: KCL 160 MEQ IV (14:21)
--- NOTE | 2023-09-26 14:53 | PTCARENOTE ---
1 unit PRBC transfusion initiated this am via L port. Patient sent to GI lab for procedure and blood transfusion completed there. [place] sheet sent to blood bank upon arrival back to floor. No c/o @ this time.
[2023-09-26] MEDS: NSS (PRESERVATIVE FREE) IV (21:00)
[2023-09-26] MEDS: PROTONIX IV IV (21:01)
[2023-09-26 21:56] LABS: Hematocrit 31.9 % (37.0-47.0)
[2023-09-26 22:02] LABS: Hemoglobin 10.9 g/dL (12.0-16.0)
[2023-09-27 01:53] LABS: Hematocrit 27.7 % (37.0-47.0); Hemoglobin 9.8 g/dL (12.0-16.0)
[2023-09-27 03:26] VITALS: BP 116/72
[2023-09-27 05:55] LABS: % Basophils 0.7 % (0-2); % Eosinophils 4.2 % (0-6); % Immature Granulocytes 1.1 % (0-0.5); % Lymphocytes 12.4 % (20.5-51.1); % Neutrophils 70.6 % (42.2-75.2); Absolute Eosinophils 0.1 10^3/uL (0-0.7); Absolute Lymphocytes 0.4 10^3/uL (1.2-3.4); Absolute Monocytes 0.3 10^3/uL (0.1-0.6); Hematocrit 27.5 % (37.0-47.0); Hemoglobin 9.5 g/dL (12.0-16.0); Mean Corp Hgb Conc. 34.5 g/dL (33.0-37.0); Mean Corpuscular Hgb 31.4 pg (27.0-31.0); Mean Corpuscular Volume 90.8 fL (81.0-99.0); Mean Platelet Volume 12.8 fL (7.4-10.4); Nucleated Red Blood Cells % 2.1 %; Platelet Count 48 10^3/uL (130-400); Red Blood Cell Count 3.03 10^6/uL (4.20-5.40); Red Cell Dist. Width 19.7 % (11.5-14.5); White Blood Cell Count 2.8 10^3/uL (4.8-10.8)
[2023-09-27 06:00] VITALS: BMI 26.8
[2023-09-27 06:04] LABS: Blood Urea Nitrogen 17 mg/dl (7-17); Calcium 8.2 mg/dl (8.4-10.2); Carbon Dioxide 26 mmol/L (22-30); Chloride 113 mmol/L (98-107); Estimated Creatinine Clearance 49 ml/min; Glucose 102 mg/dl (70-99); Potassium 3.5 mmol/L (3.5-5.1); Sodium 139 mmol/L (135-145); eGFR > 60.00
[2023-09-27 07:30] VITALS: BP 107/61
[2023-09-27] MEDS: ZOLOFT 50 MG PO (08:44)
[2023-09-27] MEDS: PROTONIX IV IV (08:47)
[2023-09-27] MEDS: NSS (PRESERVATIVE FREE) IV (08:47)
--- NOTE | 2023-09-27 10:22 | CM ---
Patient seen. IMM reviewed, signed, placed in patients chart. Patient reports her sister will provide transportation home. CM will continue to follow for discharge planning needs.
Plan; home no needs.
--- NOTE | 2023-09-27 10:29 | PN.CDI ---
CDI
- -
CDI:
Physician Documentation Request
Admit Date: 09/25/23 17:54
Dear Doctor Derek,
Please review the following and provide your response in the progress notes.
Clinical Indicators:
- 09/25 Potassium level 3.2
- 09/25 20meq IV Kcl given
- 09/26 Potassium level 3.5
Please provide a diagnosis for the above lab values that were monitored and treatment rendered:
Hypokalemia
Clinically insignificant abnormal lab value
Other
Use of terms such as suspected, likely, concern for, or probable (associated with a specific diagnosis that is being evaluated, monitored, or treated as if it exists) are acceptable and can be coded in the inpatient setting, when documented at the
time of discharge.
Thank you,
Jameson Erwin RN
CDI Specialist
Please use your independent medical judgment in providing your response.
[2023-09-27 11:00] VITALS: BP 134/65
--- NOTE | 2023-09-27 11:23 | W.PN.CRS1 ---
Today's Communication / Plan
-
Repeat CBC at 12:30; if stable and no further bleeding, ok for d/c from CRS standpoint
Assessment/Plan
-
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
bleeding tumor
AFVSS, abd S/NT/ND
Hb 9.5 from 9.8,
� Okay for regular diet
� Trend Hb, transfuse as needed; will trend once more this afternoon (ordered for 12:30)
� IS/OOB
� Appreciate hospitalist
�If no further bleeding and Hb stable, okay for discharge from CRS standpoint
Subjective Data
Subjective Data
Date of Service: September 27, 2023
No overnight events.
Denies pain
Tolerating diet.
+flatus +BMs (blood significantly improved, had a couple streaks overnight) +voiding
Pt is OOB.
Objective Data
-
Vital Signs
Temp Pulse Resp BP Pulse Ox
98.2 F 69 18 107/61 96
09/27/23 07:30 09/27/23 07:30 09/27/23 07:30 09/27/23 07:30 09/27/23 07:30
Intake & Output
09/26/23 09/27/23 09/28/23
06:59 06:59 06:59
Intake Total 250 / 250 1580 / 1580
Balance 250 / 250 1580 / 1580
Intake:
Oral fluids 0 / 0 1080 / 1080
Blood Product Amount Infused ( 250 / 250 500 / 500
mL)
Packed Rbc Leukoreduced Unit 250 / 250
[id number]
Packed Rbc Leukoreduced Unit 250 / 250
[id number]
Packed Rbc Leukoreduced Unit 250 / 250
[id number]
Other:
Number of approximated MODERATE 1 3
amounts of urine
Lab Results
09/27/23 05:41
09/27/23 05:41
Physical Exam
-
General: No Acute Distress and AOx3
HEENT: Grossly Normal
Abdomen: Soft, Non Distended, Non Tender, No Guarding and No Rebound
Skin: Warm and Dry
[2023-09-27 12:49] LABS: Hematocrit 28.5 % (37.0-47.0); Hemoglobin 10.1 g/dL (12.0-16.0); Mean Corp Hgb Conc. 35.4 g/dL (33.0-37.0); Mean Corpuscular Hgb 32.2 pg (27.0-31.0); Mean Corpuscular Volume 90.8 fL (81.0-99.0); Mean Platelet Volume 13.2 fL (7.4-10.4); Platelet Count 57 10^3/uL (130-400); Red Blood Cell Count 3.14 10^6/uL (4.20-5.40); Red Cell Dist. Width 20.5 % (11.5-14.5); White Blood Cell Count 3.2 10^3/uL (4.8-10.8)
--- NOTE | 2023-09-27 13:25 | W.DCSUMMARY ---
Discharge Summary
Discharge Data
Date of Admission: 09/25/23
Date of Discharge: 09/27/23
Total time spent discharging patient (in min): 45
-
Pending Results: No
Hospital Course
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
several days the patient also been having some mix of dark stool and she presented with a hemoglobin of 7.6 initially dropping to 7.1 decision was made to make patient admission and consultation with colorectal surgery service for flexible
sigmoidoscopy following day she was transfused 1 unit of packed red blood cells overnight and went on to have a flex sig noting active finding clotted blood found in the mid rectum at the known rectal cancer site and also an ulcerated nonobstructing
medium-sized mass was found in the mid rectum mass was partially circumferential involving two thirds of the lumen circumference oozing was noted and she underwent fulguration to ablate the lesion and prevent bleeding by argon plasma estimated blood
loss was minimal and the plan to follow-up hemoglobin was 8.5 and later going up to 9.5 at time of discharge 10.1 after further blood transfusion
She has remained hemodynamically stable and only some minor streaking of blood was noted the following morning with a follow-up hemoglobin as noted above 10.1 she is now considered stable for discharge and been cleared by colorectal surgery for
discharge plan she is tolerating regular diet she is voiding well she has been out of bed and ambulatory.
Discharge diagnosis will be rectal bleeding with blood loss anemia
Status post flexible sigmoidoscopy with argon plasma cautery
Malignant neoplasm of right l
Discharge Plan
-
Patient Disposition: Home (Routine Discharge)
Discharge Diagnosis/Procedures: Lower GI bleed
Acute blood loss anemia
Status post flex sigmoidoscopic revealing oozing at rectal cancer site underwent APC no bleeding at completion
Pancytopenia
Malignant neoplasm of the rectum
Diet: As tolerated
Activity: No restrictions
Driving Restrictions: As prior to admission
Referrals:
Allyson Marie DO [Family Provider] -
Prescriptions:
Continued
loperamide 2 mg Capsule
2 mg PO BID
loperamide 2 mg Capsule
2 mg PO BIDPRN PRN (Reason: diarrhea)
vitamin B complex Tablet
1 tab PO NOON
sertraline 50 mg Tablet
50 mg PO NOON
Biotin (B7)
1 tab PO NOON
cyanocobalamin (vitamin B-12)
1 tab PO NOON
pantothenic acid (vit B5)
1 tab PO NOON
Discharge Orders:
Discharge Patient (As Directed); Ordered 09/27/23
Ordered By: Bo Reed
--- NOTE | 2023-09-27 14:07 | PTCARENOTE ---
Patient OOB ambulating with a steady gait to bathroom. Patient has small bloody loose stool @ 0900. Patient incontinent at times of urine and bowel. Attends on. Patient tolerating diet and is eager to go home. Patient had additional BM at 1300 with
no visible blood, small brown BM
--- NOTE | 2023-10-01 07:36 | PN.CDI ---
CDI
- -
CDI:
Physician Documentation Request
Admit Date: 09/25/23 17:54
Dear Doctor Derek,
Please review the following and provide your response in the progress notes.
Clinical Indicators:
- 09/24 H&P 'underlying pancytopenia presumably from her chemotherapy'
- 'history of adenocarcinoma of the rectum ... received chemo/radiation completed 05/03/2023 in addition to 7 cycles of FOLFOX'
- WBC, RBC, platelets all low levels since 04/2023
Please clarify the relationship between these conditions:
Yes, _pancytopenia__ is related to/associated with/due to _chemotherapy__.
No, _pancytopenia__ is not related to/associated with/due to _chemotherapy__ but it is due to . (Please specify)
Unable to determine
Use of terms such as suspected, likely, concern for, or probable (associated with a specific diagnosis that is being evaluated, monitored, or treated as if it exists) are acceptable and can be coded in the inpatient setting, when documented at the
time of discharge.
Thank you,
Jameson Erwin RN
CDI Specialist
Please use your independent medical judgment in providing your response.
== END 2023-09-27 14:10 | disposition home or self-care (01) | DRG 374 ==
LOC: 4 EAST ACU 17:54
PROVIDERS: Clinical Nurse Specialist Family Health; Emergency Medicine; Physician Assistant; Surgery; ADMITTING PHYSICIAN Internal Medicine; CONSULT PHYSICIAN Surgery; EMERGENCY PHYSICIAN Emergency Medicine; FAMILY PHYSICIAN Student in an Organized Health Care Education/Training Program
PROC: 30243N1 Transfusion of Nonautologous Red Blood Cells into Central Vein, Percutaneous Approach (ICD-10-PCS; 2023-09-25)
PROC: 0D5P8ZZ Destruction of Rectum, Via Natural or Artificial Opening Endoscopic (ICD-10-PCS; 2023-09-26)
DX: C20 Malignant neoplasm of rectum (principal); D61.810 Antineoplastic chemotherapy induced pancytopenia; K62.5 Hemorrhage of anus and rectum; D62 Acute posthemorrhagic anemia; E03.9 Hypothyroidism, unspecified; I35.0 Nonrheumatic aortic (valve) stenosis; R32 Unspecified urinary incontinence; R15.9 Full incontinence of feces; I48.91 Unspecified atrial fibrillation; L93.0 Discoid lupus erythematosus; M19.90 Unspecified osteoarthritis, unspecified site; F41.9 Anxiety disorder, unspecified; E87.6 Hypokalemia; R15.2 Fecal urgency; T45.1X5A Adverse effect of antineoplastic and immunosuppressive drugs, initial encounter; Z87.891 Personal history of nicotine dependence; Z92.21 Personal history of antineoplastic chemotherapy; Z87.01 Personal history of pneumonia (recurrent); Z88.0 Allergy status to penicillin; Z92.3 Personal history of irradiation
CPT/HCPCS: 36430; 80048; 80053; 82378; 85014; 85018; 85025; 85027; 85610; 85730; 86850; 86900; 86901; 86920; 96374; 97162; 99285; P9016

== ENCOUNTER → 2023-10-01 12:38 | Outpatient (REF) | payer MEDICARE, SELFPAY ==
[2023-10-01 14:45] LABS: % Basophils 1.1 % (0-2); % Eosinophils 2.1 % (0-6); % Immature Granulocytes 0.4 % (0-0.5); % Monocytes 15.7 % (1.7-9.3); % Neutrophils 65.7 % (42.2-75.2); Absolute Eosinophils 0.1 10^3/uL (0-0.7); Absolute Lymphocytes 0.4 10^3/uL (1.2-3.4); Absolute Monocytes 0.4 10^3/uL (0.1-0.6); Absolute Neutrophils 1.8 10^3/uL (1.4-6.5); Hematocrit 28.3 % (37.0-47.0); Hemoglobin 9.7 g/dL (12.0-16.0); Mean Corp Hgb Conc. 34.3 g/dL (33.0-37.0); Mean Corpuscular Hgb 32.9 pg (27.0-31.0); Mean Corpuscular Volume 95.9 fL (81.0-99.0); Mean Platelet Volume 12.3 fL (7.4-10.4); Nucleated Red Blood Cells % 0 %; Platelet Count 87 10^3/uL (130-400); Red Blood Cell Count 2.95 10^6/uL (4.20-5.40); Red Cell Dist. Width 20.8 % (11.5-14.5); White Blood Cell Count 2.8 10^3/uL (4.8-10.8)
[2023-10-01 15:12] LABS: ALT (SGPT) 23 U/L (0-35); AST (SGOT) 45 U/L (14-36); Albumin 3.7 g/dl (3.5-5.0); Alkaline Phosphatase 82 U/L (38-126); Blood Urea Nitrogen 18 mg/dl (7-17); Calcium 9.7 mg/dl (8.4-10.2); Carbon Dioxide 25 mmol/L (22-30); Chloride 111 mmol/L (98-107); Glucose 88 mg/dl (70-99); Potassium 3.9 mmol/L (3.5-5.1); Sodium 140 mmol/L (135-145); Total Bilirubin 0.7 mg/dl (0.2-1.3); Total Protein 6.3 g/dl (6.3-8.2); eGFR > 60.00
== END ==
LOC: REG 12:38
PROVIDERS: ATTENDING PHYSICIAN Internal Medicine Hematology & Oncology; FAMILY PHYSICIAN Student in an Organized Health Care Education/Training Program
DX: C20 Malignant neoplasm of rectum (principal)
CPT/HCPCS: 36415; 80053; 85025

== ENCOUNTER → 2023-10-11 14:58 | Outpatient (REF) | payer MEDICARE, SELFPAY ==
[2023-10-11 16:30] LABS: % Basophils 0.7 % (0-2); % Eosinophils 0.7 % (0-6); % Immature Granulocytes 2.8 % (0-0.5); % Lymphocytes 13.2 % (20.5-51.1); % Monocytes 16.9 % (1.7-9.3); % Neutrophils 65.7 % (42.2-75.2); Absolute Immature Granulocytes 0.1 10^3/uL (0-0.05); Absolute Lymphocytes 0.6 10^3/uL (1.2-3.4); Absolute Monocytes 0.7 10^3/uL (0.1-0.6); Absolute Neutrophils 2.8 10^3/uL (1.4-6.5); Mean Corp Hgb Conc. 35.1 g/dL (33.0-37.0); Mean Corpuscular Hgb 33.5 pg (27.0-31.0); Mean Corpuscular Volume 95.4 fL (81.0-99.0); Mean Platelet Volume 11.7 fL (7.4-10.4); Nucleated Red Blood Cells % 2.8 %; Platelet Count 128 10^3/uL (130-400); Red Blood Cell Count 1.94 10^6/uL (4.20-5.40); Red Cell Dist. Width 22.5 % (11.5-14.5); White Blood Cell Count 4.3 10^3/uL (4.8-10.8)
[2023-10-11 16:38] LABS: ALT (SGPT) 20 U/L (0-35); AST (SGOT) 42 U/L (14-36); Albumin 3.3 g/dl (3.5-5.0); Alkaline Phosphatase 71 U/L (38-126); Blood Urea Nitrogen 19 mg/dl (7-17); Calcium 9.2 mg/dl (8.4-10.2); Carbon Dioxide 22 mmol/L (22-30); Chloride 107 mmol/L (98-107); Glucose 114 mg/dl (70-99); Potassium 2.9 mmol/L (3.5-5.1); Sodium 139 mmol/L (135-145); Total Bilirubin 0.6 mg/dl (0.2-1.3); Total Protein 5.7 g/dl (6.3-8.2); eGFR > 60.00
[2023-10-11 17:21] LABS: Hematocrit 18.5 % (37.0-47.0); Hemoglobin 6.5 g/dL (12.0-16.0)
[2023-10-11 17:40] LABS: Anisocytosis 1+; Normal RBC Morphology No
[2023-10-11 17:41] LABS: Microcytosis 1+; Ovalocytes Slight; Poikilocytosis Slight
== END ==
LOC: REG 14:58
PROVIDERS: ATTENDING PHYSICIAN Internal Medicine Hematology & Oncology; FAMILY PHYSICIAN Student in an Organized Health Care Education/Training Program
DX: C20 Malignant neoplasm of rectum (principal)
CPT/HCPCS: 36415; 80053; 85025

== ENCOUNTER 2023-10-16 09:05 | Outpatient (RCR) | payer MEDICARE, SELFPAY ==
[2023-10-16 09:43] VITALS: BP 107/65
--- NOTE | 2023-10-16 10:23 | W.PN.UPDATE ---
Update Note
- Progress Note Update
10/16/23 10:23
Seen in OID at request of OID RN Micheline Cantrell. Patient shaky upon walking to infusion chair had to sit retirement to chair from waiting room. History of rectal ca completed FOLFOX 10/02/2023 and sent to surgery as last dose was to be omitted from
the notes. Patient here today for blood and presented in probable afib. History of afib with anemia and with last tranfsusion in OID was transferred to ER during 2nd unit due to new onset afib. Patient feels well and other VSS with the exception
of fatigue. Hgb 4/5 6.5 and blood transfusion planned in OID. Due to cardiac instability and inability to safely administer blood a rapid response was called. Rapid response team arrived and patient transferred to ER. Patient informed of plan
and rationale for rapid response. She is in agreement. Oncologist Dr. Henderson and Javy Barreto oncology HEAD OF DIGITAL notified.
--- NOTE | 2023-10-16 10:32 | PTCARENOTE ---
1010 rapid response called due to new onset AFIB. Pt arrived short of breath with heart rate ranging 120's-170's. Sabrina Oswald NP notified and saw patient. Dr. Henderson notified.
== END 2023-11-05 23:59 | disposition home or self-care (01) ==
LOC: OID 09:05
PROVIDERS: ATTENDING PHYSICIAN Internal Medicine Hematology & Oncology
DX: C20 Malignant neoplasm of rectum (principal); I48.91 Unspecified atrial fibrillation; D50.0 Iron deficiency anemia secondary to blood loss (chronic)
CPT/HCPCS: 36415; 86850; 86900; 86901; 86920

== ENCOUNTER 2023-10-16 10:19 | Emergency (ER) | payer MEDICARE, SELFPAY ==
[2023-10-16] VITALS (17 sets, daily range): BP systolic 94–124; BP diastolic 57–90; BMI 27.9
[2023-10-16 11:24] LABS: % Basophils 0.7 % (0-2); % Eosinophils 0.7 % (0-6); % Immature Granulocytes 0.7 % (0-0.5); % Lymphocytes 7.9 % (20.5-51.1); % Monocytes 14.6 % (1.7-9.3); % Neutrophils 75.4 % (42.2-75.2); Absolute Lymphocytes 0.4 10^3/uL (1.2-3.4); Absolute Monocytes 0.7 10^3/uL (0.1-0.6); Absolute Neutrophils 3.4 10^3/uL (1.4-6.5); Mean Corp Hgb Conc. 31.7 g/dL (33.0-37.0); Mean Corpuscular Hgb 34.7 pg (27.0-31.0); Mean Corpuscular Volume 109.2 fL (81.0-99.0); Nucleated Red Blood Cells % 0.7 %; Red Blood Cell Count 1.73 10^6/uL (4.20-5.40); Red Cell Dist. Width 27.6 % (11.5-14.5); White Blood Cell Count 4.4 10^3/uL (4.8-10.8)
[2023-10-16 11:31] LABS: Hematocrit 18.9 % (37.0-47.0)
[2023-10-16 11:35] LABS: APTT 33.4 Sec (23.4-35.0); INR 1.24; PT 15.7 Sec (11.4-14.6)
[2023-10-16 11:37] LABS: ALT (SGPT) 19 U/L (0-35); AST (SGOT) 37 U/L (14-36); Alkaline Phosphatase 74 U/L (38-126); Blood Urea Nitrogen 22 mg/dl (7-17); Calcium 8.6 mg/dl (8.4-10.2); Carbon Dioxide 22 mmol/L (22-30); Chloride 112 mmol/L (98-107); Estimated Creatinine Clearance 56 ml/min; Glucose 96 mg/dl (70-99); Potassium 3.9 mmol/L (3.5-5.1); Sodium 135 mmol/L (135-145); Total Bilirubin 0.4 mg/dl (0.2-1.3); Total Protein 5.4 g/dl (6.3-8.2); eGFR > 60.00
[2023-10-16 12:00] LABS: Anisocytosis 1+; Hypochromasia 1+; Mean Platelet Volume 12.5 fL (7.4-10.4); Normal RBC Morphology No; Platelet Count 85 10^3/uL (130-400); Polychromasia Slight
--- NOTE | 2023-10-16 12:14 | ED.GENMED ---
History of Present Illness
General
Chief Complaint: Heart Rate Problem
Source: patient
Exam Limitations: none
Time Seen by Provider: 10/16/23 10:49
Nursing documentation reviewed up to this point in time: agreed with
Travel History
Have you had any contact with someone who has COVID-19?: No
Do you have any symptoms of coronavirus? Fever > 100 degrees, chills, cough, shortness of breath, sore throat, loss of taste or smell, muscle aches, or headache?: No
History of Present Illness
History of Present Illness:
78-year-old female with past medical history of rectal tumor with some degree of ongoing anemia secondary to this, A-fib that is paroxysmal, CHF aortic stenosis presenting to the emergency department today after she went for an outpatient blood
transfusion. She claims that she has had some vague generalized weakness fatigue shortness of breath but feels well at rest there she was found to have an elevated heart rate and was found to be in atrial fibrillation and was sent to the ER for
further assessment. During my assessment patient claims that she is otherwise asymptomatic but heart rate is fluctuating between the 120s and 150s blood pressures in the 110s over 80s afebrile normal respiratory rate and pulse. She claims that she
does occasionally go into atrial fibrillation but this seems to be exclusively when she is significantly anemic and typically resolves after receiving blood. 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
Past History
Past History
ED Past Medical History: Arrthythmia, Hypothyroidism and Other (Aortic stenosis)
ED Past Surgical History: Appendectomy, Tonsilectomy and Other (Laparoscopy with cyst aspiration)
Social History
Tobacco: Former smoker
Alcohol: None
Drug: None
Review of Systems
Review of Systems
Allergies reviewed?: Yes
All Other Systems: ROS reviewed and negative except as documented in HPI and ROS
Phy Exam
Physical Exam
Physical Exam:
GENERAL: Alert , in no apparent distress
EYE: pupils equal and reactive
NECK: Supple, no significant adenopathy.
ENT: o/p clr, mmm.
CARDIAC: Irregularly irregular and tachycardic. Pansystolic murmur
LUNGS: Clear breath sounds bilaterally, no acute respiratory distress, no wheezes/rales/rhonchi
ABDOMEN: Soft, without focal tenderness, no r/g, no cvat
NEUROLOGICAL: Alert and oriented, no focal neuro deficits
SKIN: Warm and dry, skin intact.
MUSCULOSKELETAL: No edema, well perfused.
PSYCH: Normal and appropriate interaction.
Course
Orders/Labs/Results
Orders:
Orders
10/16/23 10:28
ECG [Electrocardiogram (*1)] Urgent
Reason for Study: Abnormal EKG
10/16/23 10:29
EKG- Treatment ONCE
10/16/23 10:59
* Blood Bank Products Urgent
Blood Bank Products: *Packed RBC Leuko(PRBC's)
Quantity: 2 uni
Transfuse Today: Yes
Reason: Anemia
IV Insert/Care/Rem.- Treatment PRN
10/16/23 11:09
Type+Screen Urgent
Complete Blood Count/With Diff Urgent
Comprehensive Metabolic Panel Urgent
PTT Urgent
Prothrombin Time Urgent
10/16/23 13:09
Electrocardiogram (*1) Urgent
Reason for Study: Tachycardia
EKG- Treatment ONCE
10/16/23 14:45
Furosemide [Lasix] 20 mg IV NOW STA
Abnormal Lab Results
10/16/23
11:09
WBC 4.4 L 10^3/uL
(4.8-10.8)
RBC 1.73 L 10^6/uL
(4.20-5.40)
Hgb 6.0 L* g/dL
(12.0-16.0)
Hct 18.9 L* %
(37.0-47.0)
MCV 109.2 H D fL
(81.0-99.0)
MCH 34.7 H pg
(27.0-31.0)
MCHC 31.7 L g/dL
(33.0-37.0)
RDW 27.6 H %
(11.5-14.5)
Plt Count 85 L D 10^3/uL
(130-400)
MPV 12.5 H fL
(7.4-10.4)
Absolute Lymphs (auto) 0.4 L 10^3/uL
(1.2-3.4)
Absolute Monos (auto) 0.7 H 10^3/uL
(0.1-0.6)
Immature Gran % 0.7 H %
(0-0.5)
Neutrophils % 75.4 H %
(42.2-75.2)
Lymphocytes % 7.9 L %
(20.5-51.1)
Monocytes % 14.6 H %
(1.7-9.3)
PT 15.7 H Sec
(11.4-14.6)
Chloride 112 H mmol/L
(98-107)
BUN 22 H mg/dl
(7-17)
AST 37 H U/L
(14-36)
Total Protein 5.4 L g/dl
(6.3-8.2)
Albumin 3.0 L g/dl
(3.5-5.0)
Crossmatch IS Only See Detail
10/16/23 11:09
10/16/23 11:09
Vital Signs
Initial and Last Documented VS:
Initial Vital Signs
Temp Pulse Resp BP Pulse Ox
99.3 F 158 24 109/82 100
10/16/23 10:35 10/16/23 10:35 10/16/23 10:35 10/16/23 10:35 10/16/23 10:35
Last Documented Vital Signs
Temp Pulse Resp BP Pulse Ox
98.0 F 90 16 120/80 98
10/16/23 18:03 10/16/23 18:03 10/16/23 18:03 10/16/23 18:03 10/16/23 17:15
MDM/Problems Addressed
MDM/Problems Addressed:
78-year-old female presenting to the emergency department from the transfusion center with concerns of atrial fibrillation with rapid rate. She has been anemic from ongoing bleeding from rectal tumor has scheduled outpatient lab that showed a
hemoglobin of 6.5 last week and scheduled transfusion today 2 units were ordered. She claims that she has had some vague weakness fatigue and some shortness of breath with exertion but otherwise feels well at rest. Heart rate fluctuating between
120s and 150s during exam here she claims that she is asymptomatic otherwise. Labs obtained showing hemoglobin of 6.0 her 2 units of blood were ordered to be given here with close monitoring. Patient on the monitor was out of A-fib after roughly
an hour of the blood transfusion. Heart rate in the 80s patient feels well. Patient adamantly does not want to be admitted to the hospital at this point she claims that she has no other additional symptoms she is aware of the bleeding that has
been closely monitored as an outpatient. She is requesting to get her second unit here and be discharged. I feel this is reasonable considering this was the outpatient plan initially anyway.
*Critical Care Note
Total Time (30-74mins, 75-104mins- exclusive of procedures): Not Applicable
ED Attending Note
-
Portions of this chart may have been created with voice recognition software.� Occasional wrong word or��sound alike� substitutions may have occurred due to the inherent limitations of voice recognition software.
Discharge Plan
Departure
Patient Disposition: Home (Routine Discharge)
Date of Disposition: 10/16/23
Time of Disposition: 17:57
Patient with high blood pressure during this ER visit?: No
Condition: Good
Covid-19: Not Applicable
Discharge Problem:
Anemia, Atrial fibrillation with RVR
Instructions: Atrial Fibrillation (DC), Blood transfusion
Prescriptions:
No Action
loperamide 2 mg Capsule
2 mg PO BID
loperamide 2 mg Capsule
2 mg PO BIDPRN PRN (Reason: diarrhea)
vitamin B complex Tablet
1 tab PO NOON
sertraline 50 mg Tablet
50 mg PO NOON
Biotin (B7)
1 tab PO NOON
cyanocobalamin (vitamin B-12)
1 tab PO NOON
pantothenic acid (vit B5)
1 tab PO NOON
Referrals:
Allyson Marie DO [Family Provider] -
Activity Restrictions/Additional Instructions:
You came to the emergency department today due to having atrial fibrillation when you are scheduled to have your blood transfusion. This resolved after receiving blood. Please follow closely with your outpatient doctors return to the emergency
department for any worsening, new or concerning symptoms.
Interventions
Interventions:
*Risk Screen - Suicide Last Done: 10/16/23 10:36
*General Assessment Last Done: 10/16/23 10:36
*Neglect/Abuse Screening Last Done: 10/16/23 10:36
*Nursing Disposition Last Done: 10/16/23 18:24
ED- Cardiac Assessment Last Done: 10/16/23 11:20
ED- Pulmonary Assessment Last Done: 10/16/23 11:20
Discharge Date and Time
Discharge Date/Time: 10/16/23 18:27
Print Language: SUDANESE
[2023-10-16] MEDS: LASIX 20 MG IV (15:33)
== END 2023-10-16 18:27 | disposition home or self-care (01) ==
LOC: EMR 10:19
PROVIDERS: Physician Assistant; EMERGENCY PHYSICIAN Emergency Medicine; FAMILY PHYSICIAN Student in an Organized Health Care Education/Training Program
DX: I48.0 Paroxysmal atrial fibrillation (principal); D64.9 Anemia, unspecified; I50.9 Heart failure, unspecified; I35.0 Nonrheumatic aortic (valve) stenosis
CPT/HCPCS: 99285; 36430; 96374; 80053; 85025; 85610; 85730; 86850; 86900; 86901; 86920; 93005; P9016

== ENCOUNTER → 2023-10-21 09:21 | Outpatient (REF) | payer MEDICARE, SELFPAY | LOC: RAD 09:21 | PROVIDERS: ATTENDING PHYSICIAN Internal Medicine Hematology & Oncology; FAMILY PHYSICIAN Student in an Organized Health Care Education/Training Program | DX: C20 Malignant neoplasm of rectum (principal) | CPT/HCPCS: 71260; 74177; Q9967 ==

== ENCOUNTER → 2023-10-22 11:26 | Outpatient (REF) | payer MEDICARE, SELFPAY | LOC: MRI 3T 11:26 | PROVIDERS: ATTENDING PHYSICIAN Surgery; FAMILY PHYSICIAN Student in an Organized Health Care Education/Training Program | DX: C20 Malignant neoplasm of rectum (principal) | CPT/HCPCS: 72197; A9575 ==

== ENCOUNTER → 2023-10-24 09:44 | Outpatient (REF) | payer MEDICARE, SELFPAY ==
[2023-10-24 12:08] LABS: APTT 30.9 Sec (23.4-35.0); Fibrinogen 325 MG/DL (199-459); INR 1.05; PT 13.7 Sec (11.4-14.6)
[2023-10-24 12:09] LABS: % Basophils 1.2 % (0-2); % Eosinophils 1.5 % (0-6); % Immature Granulocytes 0.6 % (0-0.5); % Lymphocytes 12.7 % (20.5-51.1); % Monocytes 12.1 % (1.7-9.3); % Neutrophils 71.9 % (42.2-75.2); Absolute Eosinophils 0.1 10^3/uL (0-0.7); Absolute Lymphocytes 0.4 10^3/uL (1.2-3.4); Absolute Monocytes 0.4 10^3/uL (0.1-0.6); Absolute Neutrophils 2.3 10^3/uL (1.4-6.5); Hematocrit 28.7 % (37.0-47.0); Mean Corp Hgb Conc. 31.4 g/dL (33.0-37.0); Mean Corpuscular Hgb 32.7 pg (27.0-31.0); Mean Corpuscular Volume 104.4 fL (81.0-99.0); Mean Platelet Volume 10.6 fL (7.4-10.4); Nucleated Red Blood Cells % 0 %; Platelet Count 100 10^3/uL (130-400); Red Blood Cell Count 2.75 10^6/uL (4.20-5.40); Red Cell Dist. Width 23.7 % (11.5-14.5); White Blood Cell Count 3.2 10^3/uL (4.8-10.8)
[2023-10-24 13:47] LABS: Iron 132 ug/dl (37-170)
[2023-10-24 13:56] LABS: Percent Saturation 40 % (20-50); Total Iron Binding Capacity 324 ug/dl (265-497)
[2023-10-24 15:34] LABS: CEA 18.1 ng/ml
== END ==
LOC: REG 09:44
PROVIDERS: ATTENDING PHYSICIAN Internal Medicine Hematology & Oncology; FAMILY PHYSICIAN Student in an Organized Health Care Education/Training Program
DX: C20 Malignant neoplasm of rectum (principal); I48.91 Unspecified atrial fibrillation
CPT/HCPCS: 36415; 82378; 82728; 83540; 83550; 85025; 85384; 85610; 85730

== ENCOUNTER 2023-11-04 21:49 | Inpatient (IN) | payer MEDICARE, SELFPAY ==
[2023-11-04] VITALS (9 sets, daily range): BP systolic 90–113; BP diastolic 42–57
--- NOTE | 2023-11-04 19:52 | ED.GENMED ---
History of Present Illness
General
Chief Complaint: Abnormal Lab Value
Source: patient and records
Time Seen by Provider: 11/04/23 19:17
Travel History
Have you had any contact with someone who has COVID-19?: No
Do you have any symptoms of coronavirus? Fever > 100 degrees, chills, cough, shortness of breath, sore throat, loss of taste or smell, muscle aches, or headache?: No
History of Present Illness
History of Present Illness:
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 Torres, for evaluation of and ultimately admission of multiple complex medical issues that been ongoing for the last few months. Patient was
diagnosed with rectal cancer back in February and completed radiation as well as chemotherapy at the end of September. She has presented back to this emergency department a few times for GI bleeding requiring transfusions with her last hemoglobin being
9.1 following blood transfusion. Over the last 2 weeks she has had continued bright red blood with darker clots when having a bowel movement and on outpatient lab work today had a hemoglobin of 6.1. Patient has been working with her oncology team,
cardiology team as well as colorectal surgery as she is also in need of a TAVR and her specialist were debating between doing the TAVR first or having her colorectal surgery to remove her rectal tumor. Due to the complex nature of her medical
history and worsening condition it was recommended that she come to the emergency department ultimately to be admitted for continued evaluation and treatment with hopeful planning of both her TAVR and rectal surgery. Patient has no other concerns
at this time.
Past History
Past History
ED Past Medical History: Arrthythmia, Cancer, CHF, Hypothyroidism and Other (Aortic stenosis)
ED Past Surgical History: Appendectomy, Tonsilectomy and Other (Laparoscopy with cyst aspiration)
Social History
Tobacco: Former smoker
Alcohol: None
Drug: None
Living: with family
Review of Systems
Review of Systems
All Other Systems: ROS reviewed and negative except as documented in HPI and ROS
Phy Exam
Physical Exam
Physical Exam:
GENERAL: Alert , in no apparent distress
EYE: conjunctiva clear
NECK: Supple
ENT: o/p clr, mmm.
CARDIAC: Regular rate and rhythm
LUNGS: Clear breath sounds bilaterally, no acute respiratory distress, no wheezes/rales/rhonchi
Abdomen: Soft, nontender, nondistended
Rectal exam: Deferred given already known diagnosis with known GI bleeding
NEUROLOGICAL: Alert and oriented
SKIN: Warm and dry, skin intact. Pale
MUSCULOSKELETAL: well perfused.
PSYCH: Normal and appropriate interaction.
Scores
Heart Failure Risk
Heart Failure Risk Score: Not Applicable
Heart Score for Chest Pain Patients
STEMI patient?: Not applicable
Withdrawal Assessment of Alcohol
Withdrawal Assessment Completed?: Not applicable
Course
Orders/Labs/Results
Orders:
Orders
11/04/23 19:17
* Blood Bank Products Urgent
Blood Bank Products: *Packed RBC Leuko(PRBC's)
Quantity: 1
Transfuse Today: Yes
Reason: Bleeding
Cardiac Monitoring- Treatment ONCE
IV Insert/Care/Rem.- Treatment PRN
11/04/23 19:54
Type+Screen Urgent
Complete Blood Count/With Diff Urgent
Comprehensive Metabolic Panel Urgent
PTT Urgent
Prothrombin Time Urgent
11/04/23 20:38
Admit/Transfer Patient As Directed
Co-Sign Provider:
Level of Care: Inpatient admission
Assign to:: Telemetry
Physician / Group: gallito trejo
Diagnosis: gi bleed , rectal ca ,Aortic stenosis
Reason for Telemetry: Arrhythmia
Date to Stop Telemetry: 11/07/23
Time to Stop Telemetry: 11:00
Reason for Hospitalization: gi bleed , rectal ca ,Aortic stenosis
Expected length of stay greater than two midnights?: Yes
ELOS- Estimated Length of Stay in days: 4
I certify the patient meets the requirements for IP care: Yes
Blood Bank Products [* Blood Bank Products] Urgent
Dr's Orders: maya
Blood Bank Products: *Packed RBC Leuko(PRBC's)
Quantity: 1
Transfuse Today: Yes
Reason: Anemia
Code Status As Directed
Resuscitation Status: Full Code
11/04/23 20:47
CARDIOLOGY CONSULT Routine
Consulting Provider: Ramiro Cox
Was physician already notified: Yes
Reason for consult: severe aortic stenosis, severe anemia gi bleed
Colon Surgery Consult [ColoRectal Surgery Consult] Routine
Consulting Provider: Jose Alfredo Tenorio
Was physician already notified: Yes
Reason for consult: gi bleed colorectal ca s/p chemo radiation
11/05/23 04:00
H&H Q8H
11/05/23 12:00
H&H Q8H
11/05/23 20:00
H&H Q8H
11/06/23 04:00
H&H Q8H
11/07/23 11:00
DC Protocol for Telemetry ONCE
Abnormal Lab Results
11/04/23
19:54
WBC 3.7 L 10^3/uL
(4.8-10.8)
RBC 1.55 L 10^6/uL
(4.20-5.40)
Hgb 5.3 L* g/dL
(12.0-16.0)
Hct 16.1 L* %
(37.0-47.0)
MCV 103.9 H fL
(81.0-99.0)
MCH 34.2 H pg
(27.0-31.0)
MCHC 32.9 L g/dL
(33.0-37.0)
RDW 20.2 H %
(11.5-14.5)
Plt Count 92 L D 10^3/uL
(130-400)
MPV 10.9 H fL
(7.4-10.4)
Absolute Lymphs (auto) 0.7 L 10^3/uL
(1.2-3.4)
Lymphocytes % 18.6 L %
(20.5-51.1)
Monocytes % 9.5 H %
(1.7-9.3)
PT 14.7 H Sec
(11.4-14.6)
Chloride 110 H mmol/L
(98-107)
Carbon Dioxide 21 L mmol/L
(22-30)
BUN 18 H mg/dl
(7-17)
Total Protein 5.4 L g/dl
(6.3-8.2)
Albumin 3.0 L g/dl
(3.5-5.0)
Crossmatch IS Only See Detail
11/04/23 19:54
11/04/23 19:54
Vital Signs
Initial and Last Documented VS:
Initial Vital Signs
Temp Pulse Resp BP Pulse Ox
98.1 F 88 18 95/55 98
11/04/23 16:31 11/04/23 16:31 11/04/23 16:31 11/04/23 16:31 11/04/23 16:31
Last Documented Vital Signs
Temp Pulse Resp BP Pulse Ox
98.1 F 88 18 95/55 98
11/04/23 16:31 11/04/23 16:31 11/04/23 16:31 11/04/23 16:31 11/04/23 16:31
MDM/Problems Addressed
Differential Diagnosis Includes:
Anemia secondary to GI bleeding, aortic stenosis, rectal cancer
MDM/Problems Addressed:
78-year-old female with complex past medical history presenting emergency department to be admitted for further evaluation and treatment by colorectal surgery, CT surgery, cardiology and oncology. She has a hemoglobin from outpatient labs this
morning 0.1 that will require transfusion. Patient was consented for blood products. Plan will be to admit to hospitalist service with her specialists in consult. Patient is in agreement with this plan.
Chronic conditions affecting care: Cancer and Other (Valvular disease)
Acute Exacerbation and/or Progression of Chronic Illness: Cancer and Other (Valvular disease)
*Pulse Oximetry
Patient hypoxic: no
*Roll Mechanic Interpretation
Rate: normal
Rhythm: sinus
*Critical Care Note
Total Time (30-74mins, 75-104mins- exclusive of procedures): Not Applicable
Data Reviewed
Review of Other/Old Records Reveals: Labs, Records and Discharge Summary
Source: patient and records
Patient Management
Discussion with other providers: Hospitalist
Escalation/DeEscalation of care consider admission/obs:
Hospitalist team accepts for continued evaluation and treatment
ED Attending Note
-
Portions of this chart may have been created with voice recognition software.� Occasional wrong word or��sound alike� substitutions may have occurred due to the inherent limitations of voice recognition software.
Discharge Plan
Departure
Patient Disposition: Admit
Date of Disposition: 11/04/23
Time of Disposition: 19:52
Presentation/result/management discussed w/ accepting MD/DO: Hospitalist
Discharge Problem:
GI bleed, Anemia, Rectal cancer, Aortic stenosis
Prescriptions:
No Action
loperamide 2 mg Capsule
2 mg PO BID
cyanocobalamin (vitamin B-12) [Vitamin B-12] 1,000 mcg Tablet
1,000 mcg PO QPM Qty: 0
vitamin B complex Tablet
1 tab PO QPM
sertraline 50 mg Tablet
50 mg PO QPM
Biotin (B7)
1 tab PO QPM
pantothenic acid (vit B5)
1 tab PO QPM
Interventions
Interventions:
*Risk Screen - Suicide Last Done: 11/04/23 19:34
*General Assessment Last Done: 11/04/23 19:34
*Neglect/Abuse Screening Last Done: 11/04/23 19:34
ED- Fall Risk Assessment Last Done: 11/04/23 19:34
*ED COVID-19 Vaccine History Last Done: 11/04/23 19:34
Discharge Date and Time
Print Language: TAIWANESE
[2023-11-04 20:09] LABS: % Basophils 0.5 % (0-2); % Eosinophils 1.1 % (0-6); % Immature Granulocytes 0.5 % (0-0.5); % Lymphocytes 18.6 % (20.5-51.1); % Monocytes 9.5 % (1.7-9.3); % Neutrophils 69.8 % (42.2-75.2); Absolute Lymphocytes 0.7 10^3/uL (1.2-3.4); Absolute Monocytes 0.4 10^3/uL (0.1-0.6); Absolute Neutrophils 2.6 10^3/uL (1.4-6.5); Mean Corp Hgb Conc. 32.9 g/dL (33.0-37.0); Mean Corpuscular Hgb 34.2 pg (27.0-31.0); Mean Corpuscular Volume 103.9 fL (81.0-99.0); Mean Platelet Volume 10.9 fL (7.4-10.4); Nucleated Red Blood Cells % 0 %; Platelet Count 92 10^3/uL (130-400); Red Blood Cell Count 1.55 10^6/uL (4.20-5.40); Red Cell Dist. Width 20.2 % (11.5-14.5); White Blood Cell Count 3.7 10^3/uL (4.8-10.8)
[2023-11-04 20:12] LABS: Hematocrit 16.1 % (37.0-47.0); Hemoglobin 5.3 g/dL (12.0-16.0)
[2023-11-04 20:19] LABS: APTT 28.3 Sec (23.4-35.0); INR 1.16; PT 14.7 Sec (11.4-14.6)
[2023-11-04 20:23] LABS: ALT (SGPT) 12 U/L (0-35); AST (SGOT) 28 U/L (14-36); Alkaline Phosphatase 76 U/L (38-126); Blood Urea Nitrogen 18 mg/dl (7-17); Carbon Dioxide 21 mmol/L (22-30); Chloride 110 mmol/L (98-107); Glucose 92 mg/dl (70-99); Potassium 3.7 mmol/L (3.5-5.1); Sodium 137 mmol/L (135-145); Total Bilirubin 0.4 mg/dl (0.2-1.3); Total Protein 5.4 g/dl (6.3-8.2); eGFR > 60.00
--- NOTE | 2023-11-04 20:54 | HPS.HSE ---
Family Physician
-
Family Physician: Alexis Marie DO
Chief Complaint
-
abnormal lab value
History of Present Illness
78 y/o F, hx of rectal cancer s/p chemo/XRT (followed by Dr. Tenorio), Afib, hx of HFpEF, severe presents to ER from Cards office for low Hb of 6.1. She reports multiple ER visits for transfusions. Over past 2 weeks has noticed dark red blood +
clots passing. Today's Hb was 6.1 prior to office visit. She was referred here by Cardiology for admission. Denies any complaints currently.
Medical History
Past Medical History
Past Medical History: Reports Other (Arrthythmia, Cancer, CHF, Hypothyroidism and Other (Aortic stenosis))
Past Surgical History: Reports Other (Appendectomy, Tonsilectomy and Other (Laparoscopy with cyst aspiration))
Social History
Tobacco: Former Smoker
Alcohol: None
Drug: None
Living: With Family
Family History
Family History: Not pertinent
Allergies / Home Medications
Allergies reflects when Allergies were last updated in [facility].
Home Medications with original date entered in [facility]
Allergy/Medication List:
Allergies
Allergy/AdvReac Type Severity Reaction Status Date / Time
Penicillins Allergy Hives Verified 10/16/23 10:27
Home Medications
Biotin (B7) 1 tab PO QPM 09/25/23
cyanocobalamin (vitamin B-12) 1,000 mcg tablet (Vitamin B-12) 1,000 mcg PO QPM ##0 09/25/23
loperamide 2 mg capsule 2 mg PO BID 09/25/23
pantothenic acid (vit B5) 1 tab PO QPM 09/25/23
sertraline 50 mg tablet 50 mg PO QPM 09/25/23
vitamin B complex 1 tab PO QPM 09/25/23
Review of Systems
-
A 12 point ROS was completed and negative except as noted: Yes
Physical Exam
Vital Signs
Vital Signs
Temp Pulse Resp BP Pulse Ox
98.1 F 88 18 95/55 98
11/04/23 16:31 11/04/23 16:31 11/04/23 16:31 11/04/23 16:31 11/04/23 16:31
Physical Exam
General: No Apparent Distress
HEENT: NormoCephalic and Anicteric
Respiratory: No Wheezes or Rales
Cardiac: S1/S2 and Regular Rhythm
GI: Soft
Neuro: AO x 3
Hematologic/Lymphatic: No Lymphadenopathy
Psych: Calm
Laboratory Results
-
11/04/23 19:54
11/04/23 19:54
Laboratory Results
PT 14.7 Sec (11.4-14.6) H 11/04/23 19:54
INR 1.16 11/04/23 19:54
APTT 28.3 Sec (23.4-35.0) 11/04/23 19:54
Total Bilirubin 0.4 mg/dl (0.2-1.3) 11/04/23 19:54
AST 28 U/L (14-36) 11/04/23 19:54
ALT 12 U/L (0-35) 11/04/23 19:54
Alkaline Phosphatase 76 U/L (38-126) 11/04/23 19:54
Data Reviewed
-
Lab Data: Labs Reviewed by me
Impression/Plan
-
Assessment:
Acute on chronic blood loss anemia in setting of known rectal cancer
Rectal cancer s/p XRT/Chemo (followed by Dr. Tenorio, Dr. Henderson)
Chronic pancytopenia
Severe
Parox A. Fib not on AC d/t GI bleed
HFpEF
Hx of Discoid Lupus
Plan:
2 units PRBCs - infuse slowly and monitor for CHF symptoms
Consults to Cardiology, Oncology, CRS for further planning of operative intervention of severe and rectal cancer.
[2023-11-05] VITALS (15 sets, daily range): BP systolic 90–120; BP diastolic 46–61; BMI 26.5
--- NOTE | 2023-11-05 02:06 | PTCARENOTE ---
Patient received from ED and was assisted to bed. She was oriented to room and surroundings. Patient reminded to call for assist when ambulation due to low Hgb. She denies symptoms. First unit of pRBCs completed. Second unit currently
infusing. No S/s noted thus far. HRR Tele NSR, Breath sounds are CTA. Will monitor for bleeding.
[2023-11-05 05:30] LABS: % Basophils 0.6 % (0-2); % Eosinophils 3.5 % (0-6); % Immature Granulocytes 0.6 % (0-0.5); % Lymphocytes 15.4 % (20.5-51.1); % Neutrophils 68.9 % (42.2-75.2); Absolute Eosinophils 0.1 10^3/uL (0-0.7); Absolute Lymphocytes 0.5 10^3/uL (1.2-3.4); Absolute Monocytes 0.4 10^3/uL (0.1-0.6); Absolute Neutrophils 2.4 10^3/uL (1.4-6.5); Mean Corp Hgb Conc. 34.3 g/dL (33.0-37.0); Mean Corpuscular Hgb 33.2 pg (27.0-31.0); Mean Corpuscular Volume 96.7 fL (81.0-99.0); Mean Platelet Volume 10.4 fL (7.4-10.4); Nucleated Red Blood Cells % 0 %; Platelet Count 87 10^3/uL (130-400); Red Blood Cell Count 2.11 10^6/uL (4.20-5.40); Red Cell Dist. Width 20.3 % (11.5-14.5); White Blood Cell Count 3.5 10^3/uL (4.8-10.8)
[2023-11-05 06:20] LABS: Hematocrit 20.4 % (37.0-47.0)
[2023-11-05 06:34] LABS: ALT (SGPT) 12 U/L (0-35); AST (SGOT) 28 U/L (14-36); Albumin 2.5 g/dl (3.5-5.0); Alkaline Phosphatase 60 U/L (38-126); Blood Urea Nitrogen 17 mg/dl (7-17); Calcium 8.3 mg/dl (8.4-10.2); Carbon Dioxide 23 mmol/L (22-30); Chloride 113 mmol/L (98-107); Estimated Creatinine Clearance 56 ml/min; Glucose 86 mg/dl (70-99); Potassium 3.5 mmol/L (3.5-5.1); Sodium 135 mmol/L (135-145); Total Bilirubin 1.2 mg/dl (0.2-1.3); Total Protein 4.7 g/dl (6.3-8.2); eGFR > 60.00
--- NOTE | 2023-11-05 08:29 | CON.ONC ---
Addendum entered and electronically signed by Joellen Duarte MD 11/05/23 12:39:
Patient seen on am rounds, agree w/ A&P as below.
She was admitted in the setting of symptomatic anemia, with rectal bleeding, s/p neoadjuvant chemo/RT (done 04/2023) and chemotherapy (last 09/2023) for rectal cancer. Definitive mgmt of rectal cancer has been complicated by the need for TAVR,
neither of which have yet occurred.
s/p CTA chest this am, and plans for sigmoidoscopy with CRS.
Pending results of both, surgical planning TBD by cardiology and CRS.
Would transfuse as clinically indicated.
Normal bilirubin and normal LDH suggest against any significant hemolysis, retic count is high in the setting of active bleeding.
Iron studies on 10/23 showed high ferritin after IV iron in September 2023. No def of B12/folate
No further recommendations from medical oncology.
Will sign off.
Original Note:
Impression
Impression
Rectal cancer (FOLFOX discontinued, last received 10/02/23)
Acute blood loss anemia, BRBPR
Pancytopenia
Severe aortic stenosis
Hx CHF
Plan
Plan
10/23 CEA 18.1; last chemotherapy (FOLFOX) 10/02/23
11/04 WBC 3.5, Hgb 7.0, Hct 20.4, PLT 87
Follow CBC with diff daily, serial H/H
Transfuse as needed to maintain Hgb >7.5, PLT >20 (or >50 with active bleeding)
2units PRBCs ordered this AM to be transfused slowly due to hx CHF
TAVR CTA planned for today to complete workup per Cardiology with outpatient followup
Flex sig today per CRS
Additional labs are ordered and pending: retic, LDH, haptoglobin, B12/folate
Supportive care, surgical planning
We will follow. [facility] office updated.
Patient History
History of Present Illness
Pamela Drummond is a 78 year old female known to Dr. Henderson with [facility] for a history of rectal cancer. She completed 8 of 9 planned treatments of FOLFOX on 10/02/23. She also received IV iron on 10/03/23. She presented to the ER last evening, 11/03,
at the request of her Car Supplier for evaluation of acute anemia with BRBPR. Over the past 2 weeks, she has continued to have bloody stools with passage of dark clots. Outpatient labs per Cardiology office revealed Hgb of 6.1. She has been
following with [facility] (Dr. Henderson), Colorectal Surgery (Dr. Tenorio), and Cardiology (Dr. Knight) for plans regarding timing of TAVR procedure as well as resection of rectal tumor. She has been admitted for further evaluation and
treatment and surgical planning.
Past-Medical/Surgical History
Hx rectal cancer (chemo,XRT)
Hx Discoid lupus
Former smoker (x48 years, quit 2009)
Congestive heart failure
Atrial fibrillation (no anticoagulation)
Hx GIB
Severe aortic stenosis
Anemia requiring blood products
Osteoarthritis
Tonsillectomy
Appendectomy
Ovarian cyst
Patient Medication
�Medication �Instructions �Recorded �Confirmed �Last Taken �Type
Biotin (B7) 1 tab PO QPM 09/25/23 11/04/23 11/03/23 History
cyanocobalamin (vitamin B-12) 1,000 mcg PO QPM ##0 09/25/23 11/04/23 11/03/23 History
1,000 mcg tablet (Vitamin B-12)
loperamide 2 mg capsule 2 mg PO BID 09/25/23 11/04/23 11/03/23 History
pantothenic acid (vit B5) 1 tab PO QPM 09/25/23 11/04/23 11/03/23 History
sertraline 50 mg tablet 50 mg PO QPM 09/25/23 11/04/23 11/03/23 History
vitamin B complex 1 tab PO QPM 09/25/23 11/04/2324 History
Active Medications
Generic Name Dose Route Start Last Admin
Trade Name Freq PRN Reason Stop Dose Admin
Acetaminophen 650 mg 11/04/23 23:23
Acetaminophen 325 Mg Tablet PO 12/02/23 23:22
Q4HPRN PRN
mild pain/RICH/temp> 100.4F
Bisacodyl 10 mg 11/04/23 23:23
Bisacodyl 10 Mg Rectal Suppository RECTAL 12/02/23 23:22
[id number] PRN
constipation
Furosemide 20 mg 11/04/23 21:59
Furosemide 20 Mg (10 Mg/Ml) 2 Ml Vial IV
ONCE PRN
give after prbc tranfusion
Ondansetron HCl 4 mg 11/04/23 23:23
Ondansetron 4 Mg/2 Ml Vial IV 12/02/23 23:22
Q6HPRN PRN
nausea and vomiting
Polyethylene Glycol 17 grams 11/04/23 23:23
Polyethylene Glycol Powder 17 Grams Packet PO 12/02/23 23:22
DAILYPRN PRN
constipation
Senna/Docusate Sodium 1 tablet 11/04/23 23:23
Docusate W/Senna (Nelly-Colace) Tablet PO 12/02/23 23:22
BIDPRN PRN
constipation
Sertraline HCl 50 mg 11/05/23 18:00
Sertraline 50 Mg Tablet PO 12/03/23 17:59
QPM RONAK
Sodium Chloride 0 flush 11/04/23 23:00
Sodium Chloride 0.9% (Flush) Syringe IV 12/02/23 22:59
PER PROTOCOL RONAK
Review of Systems
-
off unit
Physical Exam
-
patient off unit at CT
Labs
Lab Results
WBC 3.5 10^3/uL (4.8-10.8) L 11/05/23 05:19
RBC 2.11 10^6/uL (4.20-5.40) L 11/05/23 05:19
Hgb 7.0 g/dL (12.0-16.0) L D 11/05/23 05:19
Hgb Cancelled 11/05/23 05:19
Hct 20.4 % (37.0-47.0) L* 11/05/23 05:19
Hct Cancelled 11/05/23 05:19
MCV 96.7 fL (81.0-99.0) 11/05/23 05:19
MCH 33.2 pg (27.0-31.0) H 11/05/23 05:19
MCHC 34.3 g/dL (33.0-37.0) 11/05/23 05:19
RDW 20.3 % (11.5-14.5) H 11/05/23 05:19
Plt Count 87 10^3/uL (130-400) L 11/05/23 05:19
MPV 10.4 fL (7.4-10.4) 11/05/23 05:19
Abs Immat Gran (auto) 0.0 10^3/uL (0-0.05) 11/05/23 05:19
Absolute Neuts (auto) 2.4 10^3/uL (1.4-6.5) 11/05/23 05:19
Absolute Lymphs (auto) 0.5 10^3/uL (1.2-3.4) L 11/05/23 05:19
Absolute Monos (auto) 0.4 10^3/uL (0.1-0.6) 11/05/23 05:19
Absolute Eos (auto) 0.1 10^3/uL (0-0.7) 11/05/23 05:19
Absolute Basos (auto) 0.0 10^3/uL (0-0.2) 11/05/23 05:19
Immature Gran % 0.6 % (0-0.5) H 11/05/23 05:19
Neutrophils % 68.9 % (42.2-75.2) 11/05/23 05:19
Lymphocytes % 15.4 % (20.5-51.1) L 11/05/23 05:19
Monocytes % 11.0 % (1.7-9.3) H 11/05/23 05:19
Eosinophils % 3.5 % (0-6) 11/05/23 05:19
Basophils % 0.6 % (0-2) 11/05/23 05:19
Creatinine 0.7 mg/dL (0.6-1.0) 11/05/23 05:19
Vital Signs
Vital Signs
Temp Pulse Resp BP Pulse Ox
98.0 F 77 20 96/50 100
11/05/23 04:43 11/05/23 04:43 11/05/23 04:43 11/05/23 04:43 11/05/23 01:47
--- NOTE | 2023-11-05 08:33 | W.PN.UPDATE ---
Update Note
Progress Note Update
consult will be dictated
We have asked nursing and CT to perform the TAVR CTA at 930 AM today - this was planned as outpt.
Once this is accomplished she won't need further inpt cardiac workup. She will have angiogram scheduled in a week as outpt so as not to do multiple contrast studies back to back.
When IM feels her hgb stable she can be discharged
--- NOTE | 2023-11-05 09:44 | CON.CRS ---
Consultation
-
Date/Time Consultation Requested: 11/05/2023, 20:47
Date/Time Consultation Performed: 10/26/2023, 7:05
Requesting Provider: Delia ESCOTO
Performing Provider: Arturo Tenorio MD
Reason for Consultation: rectal bleeding
Medical History
-
Chief Complaint: rectal bleeding
History of Present Illness:
78yo female with known rectal cancer presents from the ER from clinic by Dr. Tenorio. Initially she was add-on visit today for the evaluation of rectal bleeding. She was diagnosed in February 2023 with a [id number] (Stage IIIB) pMMR/MSI-L, mid-rectal
cancer that straddles the peritoneal reflection. She received chemoradiation that completed on 05/03/23. She just completed her 7th cycle of 9 (FOLFOX) on 10/02/2023. She has been passing some blood per rectum that occurs with most bowel movements.
She states some days she has hardly any bleeding, while other days it is severe. She denies nausea or vomiting. She denies fevers or chills. She has no abdominal pain. Her hgb as an outpatient was 6.1 and she was advised to go to the ER. She
received 2 units of blood. She has a history of severe aortic stenosis and has been evaluated for a TAVR by cardiology. Since transfusion, she states she feels much improved.
Past Medical History
Past Medical History: Arrhythmias (atrial fibrillation), Cancer (rectal cancer) and Other (measles, h/o chicken pox. discoid lupus, osteoarthritis, h/o PNA, severe aortic stenosis)
Past Surgical History: Appendectomy, Tonsilectomy and Other (port placement)
Social History
Tobacco: Former Smoker (1ppd x 48 years)
Alcohol: None
Drug: None
Family History
Family History: Reviewed & Not Pertinent
Allergies / Home Medications
Allergy/AdvReac Type Severity Reaction Status Date / Time
Penicillins Allergy Hives Verified 10/16/23 10:27
�Medication �Instructions �Recorded �Confirmed �Type
Biotin (B7) 1 tab PO QPM 03/20/24 04/29/24 History
cyanocobalamin (vitamin B-12) 1,000 mcg PO QPM ##0 09/25/23 11/04/23 History
1,000 mcg tablet (Vitamin B-12)
loperamide 2 mg capsule 2 mg PO BID 09/25/23 11/04/23 History
pantothenic acid (vit B5) 1 tab PO QPM 09/25/23 11/04/23 History
sertraline 50 mg tablet 50 mg PO QPM 09/25/23 11/04/23 History
vitamin B complex 1 tab PO QPM 09/25/23 11/04/23 History
Review of Systems
-
History Source: Patient
: Bleeding
A 10 point review of systems was completed, and was negative except as per HPI.
Physical Exam
Vital Signs
Temp 98.1 F 11/05/23 08:00
Pulse 64 11/05/23 08:00
Resp Rate 16 11/05/23 08:00
Blood pressure 97/46 11/05/23 08:00
SaO2 97 11/05/23 08:00
11/04/23 11/05/23 11/06/23
06:59 06:59 06:59
Actual Weight 67.784 kg
Body Mass Index (BMI) 26.5
Lab Results / Allergies
11/05/23 05:19
WBC 3.5 10^3/uL (4.8-10.8) L 11/05/23 05:19
Hgb 7.0 g/dL (12.0-16.0) L D 11/05/23 05:19
Hgb Cancelled 11/05/23 05:19
Hct 20.4 % (37.0-47.0) L* 11/05/23 05:19
Hct Cancelled 11/05/23 05:19
Plt Count 87 10^3/uL (130-400) L 11/05/23 05:19
Abs Immat Gran (auto) 0.0 10^3/uL (0-0.05) 11/05/23 05:19
Neutrophils % 68.9 % (42.2-75.2) 11/05/23 05:19
Allergy/AdvReac Type Severity Reaction Status Date / Time
Penicillins Allergy Hives Verified 10/16/23 10:27
Physical Exam
General: Well Developed, Well Nourished and No Apparent Distress
GI: Soft, Non Tender and Non Distended
Neuro: AO x 3
Psych: Calm
Data Reviewed
-
Labs: Labs Reviewed by me, Discussed with Physician and Discussed with Patient
Old Records: Reviewed
Assessment / Plan
-
Assessment: 78yo female with known rectal cancer s/p chemo and radiation with severe aortic stenosis and atrial fibrillation presents to the ER after recommendation by cardiology for a hgb of 6.1, transfused 2 units PRBCs
Plan:
-Given her continued rectal bleeding, she has been tentatively added to the flexible sigmoidoscopy schedule today with Dr. Tenorio to further evaluate. Remain NPO for the procedure.
-Transfuse PRN.
-Undergoing a TAVR CTA per cardiology this morning
-
[2023-11-05 10:14] LABS: Reticulocyte Count 5.8 % (0.4-2.8)
[2023-11-05 10:24] LABS: LDH 222 U/L (120-246)
[2023-11-05 11:26] LABS: Vitamin B12 712 pg/ml (239-931)
[2023-11-05 11:58] LABS: Folate > 20.0 ng/ml (2.76-20)
--- NOTE | 2023-11-05 12:00 | PTCARENOTE ---
Patient off unit for procedure. Will obtain VS when she's back.
[2023-11-05 12:07] LABS: Hemoglobin 7.6 g/dL (12.0-16.0)
--- NOTE | 2023-11-05 12:41 | W.PN.HOSP.TC ---
Today's Communication/Plan
-
Monitor hemoglobin
Flexible sigmoidoscopy
Assessment / Plan
Assessment / Plan
Gen-AAOx3, NAD
HEENT-NC, AT, anicteric, clear oral mm
Neck-supple
CV-reg, no M, +S1/S2
Lungs-clear B/L
Abd-soft, NT, ND
Ext-no edema
Musculoskeletal-no cyanosis, clubbing
Skin-warm and dry
Neuro-grossly non-focal
Psych-calm, cooperative
Acute lower GI bleed -suspect due to known rectal cancer. Awaiting flexible sigmoidoscopy today. Hemodynamically stable.
Acute on chronic blood loss anemia -due to GI bleed as above. Admission hemoglobin 6.1, dropped to 5.3, transfused 2 units of blood last night and improved to 7.6 on last check. Monitor hemoglobin closely.
Pancytopenia -likely due to chemotherapy. Monitor for now.
Rectal cancer -last chemotherapy was 10/01. FOLFOX regimen, completed 8 of 9 planned treatments. Colorectal surgery and oncology consulted.
Severe aortic stenosis -awaiting TAVR.
Discoid lupus
Atrial fibrillation -unknown type. Not on anticoagulation given anemia and ongoing GI bleed.
Chronic heart failure preserved EF -stable.
Full code
Anticipated Discharge: > 48 hours
Subjective/Interval History
-
Date of Service: November 05, 2023
Patient seen and examined. Still with some rectal bleeding.
Objective Data
-
Labs:
Laboratory Results
11/05/23 11/05/23 11/05/23
05:19 05:19 05:19
WBC 3.5 L
Hgb 7.0 L D Cancelled
Hct 20.4 L* Cancelled
Plt Count 87 L
Sodium 135
Potassium 3.5
Chloride 113 H
Carbon Dioxide 23
BUN 17
Creatinine 0.7
Glucose 86
Calcium 8.3 L
Total Bilirubin 1.2
AST 28
ALT 12
Alkaline Phosphatase 60
11/05/23
11:56
WBC
Hgb 7.6 L
Hct 23.0 L
Plt Count
Sodium
Potassium
Chloride
Carbon Dioxide
BUN
Creatinine
Glucose
Calcium
Total Bilirubin
AST
ALT
Alkaline Phosphatase
Vital Signs:
Vital Signs
Temp Pulse Resp BP Pulse Ox
98.1 F 64 16 97/46 99
11/05/23 08:00 11/05/23 08:00 11/05/23 08:00 11/05/23 08:00 11/05/23 09:20
I&O
11/04/23 11/05/23 11/06/23
06:59 06:59 06:59
Intake Total 500 / 500
Balance 500 / 500
Review of Systems
-
History Source: Patient
All other systems: Reviewed and negative
--- NOTE | 2023-11-05 13:09 | W.PN.UPDATE ---
Update Note
Progress Note Update
Flexible sigmoidoscopy with control of bleeding (APC) or rectal tumor.
--- NOTE | 2023-11-05 14:05 | W.PN.UPDATE ---
Update Note
Progress Note Update
After discussing the case with her treating physicians, the plan is for a low anterior resection with a diverting loop ileostomy on 11/15/23. The plan is to get her hemoglobin in the 10 g/dL range. I have asked our enterstomal therapists to camila the
stoma sites. If stable, hopefully she can be managed as an outpatient until the operation. I reviewed the options extensively with the patient, and she wishes to proceed with the plan.
--- NOTE | 2023-11-05 14:38 | WOUNDNOTE ---
XIN RN NOTE: Received stoma siting request, patient off floor for TAVR. Ostomy surgery planned for 11/15/[address] Tenorio. Will follow tomorrow.
--- NOTE | 2023-11-05 14:50 | CM ---
Met with pt at bedside
Pt lives alone in an apartment. Elevator access to enter.
Pt describes self as independent, active, driving
DME - none
SNF/HH - no past hx
Has ride at d/c
PCP - Dr Parker Marie
Pharm - [facility]
CM will follow for d/c needs
Plan - anticipate home no needs
[2023-11-05] MEDS: KCL 40 MEQ PO (15:39)
--- NOTE | 2023-11-05 15:48 | PTOTSP ---
PT will sign off. Pt states she does not want to be evaluated and insists she is functioning independently. RN aware.
--- NOTE | 2023-11-05 15:48 | PTOTSP ---
patient declined OT/PT evaluations, stating she is very active, does yoga and has had assessments in the past. Declined therapy, OT DC.
--- NOTE | 2023-11-05 17:41 | CON.CAR ---
Consultation
Consultation Request
Date/Time Consultation Requested: 11/05/2023 6 AM
Date/Time Consultation Performed: 11/05/2023 7 AM
Requesting Provider: Drew Odom
Performing Provider: Eugene
Reason for Consultation: critical
Medical History
-
Chief Complaint: Generalized weakness
History of Present Illness:
This is a 78-year-old woman followed by Dr. Joao Torres with critical aortic stenosis. She is only symptomatic when hemoglobin gets low. Unfortunately this is a common occurrence now that she has rectal cancer. She requires complex surgery
which will be performed by Dr. Arturo Tenorio. Echocardiography shows critical aortic stenosis with mean gradient 76 mmHg. Left ventricular function is normal. She was discussed at the multidisciplinary valve conference last week in terms of
her aortic stenosis and rectal cancer and timing of surgical treatment of her cancer and aortic valve replacement. She is now readmitted with a lower GI bleed with hemoglobin down to 5.3.
Exam
Blood pressure 97/46, heart rate 60, respiratory rate 16
Heart sounds regular with S1-S2 and a 3/6 late peaking aortic stenosis murmur radiating to the neck
Lungs: Clear
Extremities: Trace edema
Impression:
1. Rectal cancer with recurrent rectal bleeding
2. Critical aortic stenosis
3. Pancytopenia
Recommendation:
1. Transfuse to hemoglobin 10 or higher
2. I have discussed the situation with Dr. Tenorio and with Dr. Tien Valentine of cardiac anesthesia. We are concerned about placing a valve preoperatively as this will require aspirin which will undoubtedly increase her episodes of lower GI bleeding.
Dr. Valentine and Dr. Tenorio have discussed risk of cardiac complications from low anterior resection surgery. She is absolutely a high risk patient. The feeling is that she can be managed by cardiac anesthesia and undergo the needed surgery with a
plan for TAVR following full recovery. Importantly, she only gets symptomatic when her hemoglobin gets quite low as it did yesterday.
3. We were able to arrange a TAVR CTA to be done today
Total time spent with patient and then arranging inpatient TAVR CTA and with consultative discussions with cardiac anesthesia and colorectal surgery 60 minutes
Allergies / Home Medications
Allergy/AdvReac Type Severity Reaction Status Date / Time
Penicillins Allergy Hives Verified 10/16/23 10:27
�Medication �Instructions �Recorded �Confirmed �Type
Biotin (B7) 1 tab PO QPM Supplement 09/25/23 11/04/23 History
cyanocobalamin (vitamin B-12) 1,000 mcg PO QPM Supplement ##0 09/25/23 11/04/23 History
1,000 mcg tablet (Vitamin B-12)
loperamide 2 mg capsule 2 mg PO BID diarrhea 09/25/23 11/04/23 History
pantothenic acid (vit B5) 1 tab PO QPM Supplement 09/25/23 11/04/23 History
sertraline 50 mg tablet 50 mg PO QPM Depression 09/25/23 11/04/23 History
vitamin B complex 1 tab PO QPM Supplement 09/25/23 11/04/23 History
Physical Exam
Vital Signs
Temp Pulse Resp BP Pulse Ox
97.2 F 60 16 100/52 98
11/05/23 15:45 11/05/23 15:45 11/05/23 15:45 11/05/23 15:45 11/05/23 14:25
Lab Results
11/05/23 05:19
[2023-11-05] MEDS: ZOLOFT 50 MG PO (18:19)
--- NOTE | 2023-11-05 18:29 | PTCARENOTE ---
pt tolerated 1unit PRBC transfusion BP 95/55, refused PRN lasix despite edu and x2 attempt
[2023-11-05 20:26] LABS: Hematocrit 25.3 % (37.0-47.0); Hemoglobin 8.5 g/dL (12.0-16.0)
[2023-11-06] VITALS (8 sets, daily range): BP systolic 90–100; BP diastolic 39–66; BMI 26.8
[2023-11-06 04:10] LABS: % Basophils 0.8 % (0-2); % Eosinophils 2.5 % (0-6); % Immature Granulocytes 0.4 % (0-0.5); % Lymphocytes 9.5 % (20.5-51.1); % Monocytes 8.2 % (1.7-9.3); % Neutrophils 78.6 % (42.2-75.2); Absolute Eosinophils 0.1 10^3/uL (0-0.7); Absolute Lymphocytes 0.5 10^3/uL (1.2-3.4); Absolute Monocytes 0.4 10^3/uL (0.1-0.6); Absolute Neutrophils 3.8 10^3/uL (1.4-6.5); Hematocrit 25.7 % (37.0-47.0); Hemoglobin 8.4 g/dL (12.0-16.0); Mean Corp Hgb Conc. 32.7 g/dL (33.0-37.0); Mean Corpuscular Hgb 32.2 pg (27.0-31.0); Mean Corpuscular Volume 98.5 fL (81.0-99.0); Mean Platelet Volume 10.5 fL (7.4-10.4); Nucleated Red Blood Cells % 0 %; Platelet Count 84 10^3/uL (130-400); Red Blood Cell Count 2.61 10^6/uL (4.20-5.40); Red Cell Dist. Width 20.2 % (11.5-14.5); White Blood Cell Count 4.9 10^3/uL (4.8-10.8)
[2023-11-06 05:02] LABS: ALT (SGPT) 13 U/L (0-35); AST (SGOT) 31 U/L (14-36); Albumin 2.7 g/dl (3.5-5.0); Alkaline Phosphatase 98 U/L (38-126); Blood Urea Nitrogen 12 mg/dl (7-17); Calcium 8.9 mg/dl (8.4-10.2); Carbon Dioxide 21 mmol/L (22-30); Chloride 114 mmol/L (98-107); Estimated Creatinine Clearance 56 ml/min; Glucose 91 mg/dl (70-99); Sodium 139 mmol/L (135-145); Total Bilirubin 0.5 mg/dl (0.2-1.3); Total Protein 5.1 g/dl (6.3-8.2); eGFR > 60.00
--- NOTE | 2023-11-06 06:03 | PTCARENOTE ---
HR to 140's for 6 sec with return to baseline while patient sleeping. Patient continues with bloody BM with clots. Hgb 8.4. For continued monitoring.
--- NOTE | 2023-11-06 10:04 | WOUNDNOTE ---
WON RN NOTE: Stoma sited patient as requested, lower quadrants not viable due to excessive creasing when standing/sitting. Identified rectus muscle, avoided scars and creases, assessed lying sitting and standing. LUQ marked 7 cm from midline and
7.5cm proximal from umbilical line. RUQ marked 5cm from midline and 8cm proximal from umbilical line. Dr. Tenorio currently in surgery, notified JUSTA Rivera of the above who will notify Dr. Tenorio. Answered all Questions, made patient aware that
surgeon has final decision for stoma location during surgery. Will follow for ostomy teaching if needed. Encouraged patient to enlist family to help, patient states she wants to be independent with care.
--- NOTE | 2023-11-06 10:31 | W.PN.CRS1 ---
Today's Communication / Plan
-
transfuse 1 unit
Assessment/Plan
-
Assessment: 78yo female with known rectal cancer s/p chemo and radiation with severe aortic stenosis and atrial fibrillation presents to the ER after recommendation by cardiology for a hgb of 6.1, transfused 2 units PRBCs
VS normal
Hgb 8.4 s/p 3 units PRCS
Plan:
1. Continue regular diet.
2. Transfuse PRN. Still with bloody stools but decreasing in frequency since procedure yesterday.
3. Recommend 1 unit PRBCs.
4. avionics test technician for 4 quadrant stoma marking.
5. Continue a regular diet.
6. Okay for discharge from our standpoint after 1 unit PRBC transfusion. Will discuss with hospitalist.
Subjective Data
Procedure
10/26/2023- sigmoidoscopy with APC treatment
Subjective Data
Date of Service: November 06, 2023
Patient still has bleeding in her stools, less than 3 since her procedure yesterday. She has no other complaints.
Objective Data
-
Vital Signs
Temp Pulse Resp BP Pulse Ox
98.0 F 68 18 95/51 97
11/06/23 07:00 11/06/23 07:00 11/06/23 07:00 11/06/23 07:00 11/06/23 07:00
Intake & Output
11/05/23 11/06/23 11/07/23
06:59 06:59 06:59
Intake Total 500 / 500 740 / 740
Balance 500 / 500 740 / 740
Intake:
Oral fluids 240 / 240
Blood products 250 / 250
Blood Product Amount Infused ( 500 / 500 250 / 250
mL)
Packed Rbc Leukoreduced Unit 250 / 250
[id number]
Packed Rbc Leukoreduced Unit 250 / 250
[id number]
Packed Rbc Leukoreduced Unit 250 / 250
[id number]
Other:
Number of approximated MODERATE 2 3
amounts of urine
Number of approximated LARGE 2
amounts of urine
Lab Results
11/06/23 04:00
11/06/23 03:58
Physical Exam
-
General: No Acute Distress and AOx3
Abdomen: Soft, Non Distended and Non Tender
--- NOTE | 2023-11-06 10:52 | W.PN.HOSP.TC ---
Today's Communication/Plan
-
Transfuse
Discharge
Assessment / Plan
Assessment / Plan
Gen-AAOx3, NAD
HEENT-NC, AT, anicteric, clear oral mm
Neck-supple
CV-reg, no M, +S1/S2
Lungs-clear B/L
Abd-soft, NT, ND
Ext-no edema
Musculoskeletal-no cyanosis, clubbing
Skin-warm and dry
Neuro-grossly non-focal
Psych-calm, cooperative
Acute lower GI bleed -suspect due to known rectal cancer. Flexible sigmoidoscopy completed yesterday showing mucosal ulceration in the mid rectum. Treated with APC. No specimens collected. Still with bloody bowel movements today.
Hemodynamically stable.
Acute on chronic blood loss anemia -due to GI bleed as above. Admission hemoglobin 6.1. Transfused 3 units of blood so far, hemoglobin 8.4 this morning. Will give additional unit of blood today given ongoing bleeding.
Pancytopenia -likely due to chemotherapy. Monitor for now.
Rectal cancer -last chemotherapy was 10/01. FOLFOX regimen, completed 8 of 9 planned treatments. Colorectal surgery plans on resection of tumor November 14.
Severe aortic stenosis -awaiting TAVR, timing to be done after rectal surgery next week.
Discoid lupus
Atrial fibrillation -unknown type. Not on anticoagulation given anemia and ongoing GI bleed.
Chronic heart failure preserved EF -stable.
Full code
Dispo -anticipate discharge home later today after blood transfusion. CBC next week as an outpatient.
32-minute spent in discharge process.
Anticipated Discharge: Today
Subjective/Interval History
-
Date of Service: November 06, 2023
Patient seen and examined. No new complaints.
Objective Data
-
Labs:
Laboratory Results
11/06/23 11/06/23
03:58 04:00
WBC 4.9
Hgb 8.4 L Cancelled
Hct 25.7 L Cancelled
Plt Count 84 L
Sodium 139
Potassium 4.0
Chloride 114 H
Carbon Dioxide 21 L
BUN 12
Creatinine 0.7
Glucose 91
Calcium 8.9
Total Bilirubin 0.5
AST 31
ALT 13
Alkaline Phosphatase 98
Vital Signs:
Vital Signs
Temp Pulse Resp BP Pulse Ox
98.0 F 68 18 95/51 97
11/06/23 07:00 11/06/23 07:00 11/06/23 07:00 11/06/23 07:00 11/06/23 07:00
I&O
11/05/23 11/06/23 11/07/23
06:59 06:59 06:59
Intake Total 500 / 500 740 / 740
Balance 500 / 500 740 / 740
Review of Systems
-
History Source: Patient
All other systems: Reviewed and negative
--- NOTE | 2023-11-06 10:59 | W.DS.TRANS ---
DC Summary - Mental Hygienist
-
Discharge Instructions:
Sleep Apnea Risk Low
Discharge Diagnosis/Procedures Rectal cancer, lower GI bleed, symptomatic
anemia, aortic stenosis
Diet Regular
Activity As tolerated
Driving Restrictions As prior to admission
Bathing Restrictions None
Blood Work CBC next week
Instructions:
Stand-Alone Forms:
Changes to Home Medications: No
Discharge Medications:
DC Medications w/original date entered in [email or web address]
Biotin (B7) 1 tab PO QPM Supplement 09/25/23
cyanocobalamin (vitamin B-12) 1,000 mcg tablet (Vitamin B-12) 1,000 mcg PO QPM Supplement ##0 09/25/23
loperamide 2 mg capsule 2 mg PO BID diarrhea 09/25/23
pantothenic acid (vit B5) 1 tab PO QPM Supplement 09/25/23
sertraline 50 mg tablet 50 mg PO QPM Depression 09/25/23
vitamin B complex 1 tab PO QPM Supplement 09/25/23
polyethylene glycol 3350 17 gram oral powder packet (HealthyLax) 17 g PO DAILYPRN PRN constipation #0 ea 11/06/23
Home Medication Changes
Pending Results: No
--- NOTE | 2023-11-06 14:25 | CM ---
Pt for d/c today
Reports she has her car in hospital parking lot and will drive herself home when discharged
Discussed IMM
Plan - home no needs
== END 2023-11-06 17:07 | disposition home or self-care (01) | DRG 374 ==
LOC: 3 WEST ACU 21:49
PROVIDERS: Clinical Nurse Specialist Family Health; Nurse Practitioner Family; Physician Assistant Medical; ADMITTING PHYSICIAN Internal Medicine; ATTENDING PHYSICIAN Hospitalist; CONSULT PHYSICIAN Surgery; EMERGENCY PHYSICIAN Emergency Medicine; FAMILY PHYSICIAN Student in an Organized Health Care Education/Training Program; OTHER PHYSICIAN Internal Medicine Cardiovascular Disease; OTHER PHYSICIAN Internal Medicine Hematology & Oncology
PROC: 30233N1 Transfusion of Nonautologous Red Blood Cells into Peripheral Vein, Percutaneous Approach (ICD-10-PCS; 2023-11-04)
PROC: 0D5P8ZZ Destruction of Rectum, Via Natural or Artificial Opening Endoscopic (ICD-10-PCS; 2023-11-05)
DX: C19 Malignant neoplasm of rectosigmoid junction (principal); D61.810 Antineoplastic chemotherapy induced pancytopenia; K92.2 Gastrointestinal hemorrhage, unspecified; I50.32 Chronic diastolic (congestive) heart failure; D62 Acute posthemorrhagic anemia; K62.6 Ulcer of anus and rectum; L93.0 Discoid lupus erythematosus; M19.90 Unspecified osteoarthritis, unspecified site; I48.0 Paroxysmal atrial fibrillation; E03.9 Hypothyroidism, unspecified; T45.1X5A Adverse effect of antineoplastic and immunosuppressive drugs, initial encounter; I35.0 Nonrheumatic aortic (valve) stenosis; R79.89 Other specified abnormal findings of blood chemistry; Z92.3 Personal history of irradiation; Z92.21 Personal history of antineoplastic chemotherapy; Z87.891 Personal history of nicotine dependence; Z88.0 Allergy status to penicillin; Z87.01 Personal history of pneumonia (recurrent)
CPT/HCPCS: 36415; 74174; 75572; 80053; 82607; 82746; 83615; 85014; 85018; 85025; 85045; 85610; 85730; 86850; 86900; 86901; 86920; 99285; P9016; Q9967

== ENCOUNTER 2023-11-11 13:08 | Inpatient (IN) | payer MEDICARE, SELFPAY ==
--- NOTE | 2023-11-11 11:54 | HPS.HSE ---
Family Physician
-
Family Physician: Alexis Marie DO
Chief Complaint
-
rectal bleeding
History of Present Illness
78yo female with known rectal cancer presents as a direct admission for scheduled surgery tomorrow. She was diagnosed in February 2023 with a [id number] (Stage IIIB) pMMR/MSI-L, mid-rectal cancer that straddles the peritoneal reflection. She received
chemoradiation that completed on 05/03/23. She just completed her 7th cycle of 9 (FOLFOX) on 10/02/2023. She has been passing some blood per rectum that occurs with most bowel movements. She states some days she has hardly any bleeding, while other
days it is severe. She denies nausea or vomiting. She denies fevers or chills. She has no abdominal pain. She has a history of severe aortic stenosis and has been evaluated for a TAVR by cardiology. Recently she was hospitalized on 11/04/2023-
11/06/2023 due to a hemoglobin of 6.1 found on outpatient labs. She received multiple transfusions and underwent a colonoscopy with APC treatment by Dr. Tenorio on 11/05/2023. Despite this, she continues to bleed. She was originally scheduled for OR this
Tuesday 11/14, but given her bleeding, she will undergo surgery tomorrow.
Medical History
Past Medical History
Past Medical History: Reports Arrhythmia (atrial fibrillation), Cancer (rectal cancer) and Other (measles, h/o chicken pox. discoid lupus, osteoarthritis, h/o PNA, severe aortic stenosis)
Past Surgical History: Reports Appendectomy, Tonsilectomy and Other (port placement)
Social History
Tobacco: Former Smoker (1ppd x 48 years)
Alcohol: None
Drug: None
Family History
Family History: Not pertinent
Allergies / Home Medications
Allergy/Medication List:
Allergies:
Penicillins - hives
Medications:
1. Biotin (B7) 1 tab PO QPM
2. Cyanocobalamin (vitamin B-12) 1,000 mcg tablet (Vitamin B-12)
1,000 mcg PO QPM
3. Loperamide 2 mg capsule 2 mg PO BID
4. Pantothenic acid (vit B5) 1 tab PO QPM
5. Sertraline 50 mg tablet 50 mg PO QPM
6. Vitamin B complex 1 tab PO QPM
7. Polyethylene glycol 3350 17 gram oral powder packet (HealthyLax)
17 g PO DAILY PRN constipation.
Review of Systems
-
History Source: Patient
A 12 point ROS was completed and negative except as noted: Yes
: Reports Bleeding (rectal)
Physical Exam
Physical Exam
General: Well Developed, Well Nourished and No Apparent Distress
HEENT: NormoCephalic
GI: Soft, Non Tender and Non Distended
Skin: Warm and Dry
Neuro: AO x 3
Laboratory Results
-
Laboratory results are pending
Data Reviewed
-
Old Records: Reviewed
Impression/Plan
-
IMPRESSION: 78yo female with known rectal cancer s/p chemo and radiation with severe aortic stenosis and atrial fibrillation and recent colonoscopy with APC treatment, presents for a bowel prep today for a scheduled lower anterior
resection/ileostomy tomorrow
PLAN:
1. Bowel prep today, low anterior resection with ileostomy scheduled for tomorrow.
2. Clear liquids today, NPO at midnight.
3. IVFs (Normosol 50ml/hr) while NPO.
4. CBC and type and screen.
5. Hospitalist consult.
6. Pre-op medications ordered.
7. TEDS/SCDS in place for DVT prophylaxis.
8. Discussed the above with the patient.
[2023-11-11 13:33] VITALS: BP 101/56
[2023-11-11 14:04] LABS: % Basophils 1.2 % (0-2); % Eosinophils 1.2 % (0-6); % Immature Granulocytes 0.5 % (0-0.5); % Lymphocytes 12.7 % (20.5-51.1); % Monocytes 8.5 % (1.7-9.3); % Neutrophils 75.9 % (42.2-75.2); Absolute Basophils 0.1 10^3/uL (0-0.2); Absolute Eosinophils 0.1 10^3/uL (0-0.7); Absolute Lymphocytes 0.5 10^3/uL (1.2-3.4); Absolute Monocytes 0.3 10^3/uL (0.1-0.6); Absolute Neutrophils 3.1 10^3/uL (1.4-6.5); Hematocrit 27.8 % (37.0-47.0); Mean Corp Hgb Conc. 32.4 g/dL (33.0-37.0); Mean Corpuscular Hgb 32.3 pg (27.0-31.0); Mean Corpuscular Volume 99.6 fL (81.0-99.0); Mean Platelet Volume 10.1 fL (7.4-10.4); Nucleated Red Blood Cells % 0 %; Platelet Count 106 10^3/uL (130-400); Red Blood Cell Count 2.79 10^6/uL (4.20-5.40); Red Cell Dist. Width 18.9 % (11.5-14.5)
--- NOTE | 2023-11-11 14:53 | W.PN.UPDATE ---
Update Note
Progress Note Update
Patient's labs were examined. Hemoglobin is 9.0. Given need to be over 10.0 from a cardiac standpoint for surgery, will transfuse 1 unit PRBCs. Discussed with patient. Recheck hemoglobin 1 hour after transfusion. If still below 10.0, will need
another unit. Cardiology has been consulted.
[2023-11-11] MEDS: CATHFLO/ACTIVASE 2 MG IV (15:02)
--- NOTE | 2023-11-11 15:05 | VATNOTE ---
cathflo give now via port; will recheck in approx 45 min.
--- NOTE | 2023-11-11 15:09 | CON.HOSP ---
Documented by User: TIGIST Astudillo 11/11/23 15:32
Family Physician
-
Family Physician: Alexis Marie DO
Chief Complaint
-
Rectal bleeding
History of Present Illness
78-year-old female who reports over the weekend she had multiple episodes approximate 10-15 of incontinence bright red stool with some clots. She has history of chronic incontinence since having rectal cancer and XRT. She spoke with her surgeon
Dr. Tenorio who advised her to come in for admission. She is scheduled for rectal mass excision tomorrow 11/12/2023 which is being moved up from 11/15/2023. Her current hemoglobin is stable at 9. She denies current headache, chest pain, palpitations,
shortness breath, cough, abdominal pain, nausea, vomiting,, diarrhea, fever, chills, urinary symptoms.
She had a recent admission 11/03 - 11/06/2023 for lower GI bleed chronic blood loss anemia, rectal cancer, pancytopenia due to chemo, severe aortic stenosis.
Patient had flex sig showed mucosal ulceration in the mid rectum treated with APC recommendation was for rectal mass resection on 11/15/2023. She was transfused 4 units of blood due to Hgb 6.1. She completed 8 out of 9 treatments of FOLFOX
chemotherapy. Other PMH includes depression, rectal cancer status post radiation, current chemo completed 02/13 FOLFOX chemotherapy is, pancytopenia, chronic blood loss anemia, severe aortic stenosis, TETLIN
Medical History
Past Medical History
Past Medical History: Reports Other
Additional Past Medical History:
Depression
rectal cancer status post radiation/ current chemo completed 02/13 FOLFOX chemotherapy
pancytopenia due to chemo
chronic blood loss anemia due to rectal mass/chemotherapy
severe aortic stenosis
Past Surgical History: Reports Other
Additional Past Surgical History:
flex sig showed mucosal ulceration in the mid rectum treated with APC on 11/05/2023
Appendectomy secondary to ruptured
Tonsillectomy
Social History
Tobacco: Non-smoker
Alcohol: Occasional
Drug: None
Personal: Single
Living: Alone
Employment: Retired
Family History
Family History: Reviewed & Not Pertinent
Allergies / Home Medications
Allergies reflects when Allergies were last updated in [employer].
Home Medications with original date entered in [employer]
Allergy/Medication List:
Allergies
Allergy/AdvReac Type Severity Reaction Status Date / Time
Penicillins Allergy Hives Verified 10/16/23 10:27
Home Medications
Biotin (B7) 1 tab PO QPM Supplement 09/25/23
cyanocobalamin (vitamin B-12) 1,000 mcg tablet (Vitamin B-12) 1,000 mcg PO QPM Supplement ##0 09/25/23
loperamide 2 mg capsule 2 mg PO BID diarrhea 09/25/23
pantothenic acid (vit B5) 1 tab PO QPM Supplement 09/25/23
sertraline 50 mg tablet 50 mg PO QPM Depression 09/25/23
vitamin B complex 1 tab PO QPM Supplement 09/25/23
polyethylene glycol 3350 17 gram oral powder packet (HealthyLax) 17 g PO DAILYPRN PRN constipation #0 ea 11/06/23
Review of Systems
-
History Source: Patient
A 12 point Review of Systems was completed except as noted: Yes
Constitutional: Denies Fever or Chills
EENT: Denies Sore Throat or Runny Nose
Respiratory: Denies Cough or Trouble Breathing
Cardiac: Denies Chest Pain, Diaphoresis, Palpitations or Syncope
Abdomen/GI: Reports Bloody Stools (Bright red with clots x 2 days); Denies Abdominal Pain, Nausea, Vomiting, Diarrhea, Constipated or Black Stools
: Denies Dysuria, Frequency, Flank Pain, Incontinence, Difficulty Voiding or Urgency
Musculoskeletal: Denies Joint Pain or Edema
Skin: Denies Itching or Rash
Neurological: Denies Dizzy, Headache or Weakness
Endocrine: Reports No Symptoms
Hematologic/Lymphatic: Reports No Symptoms
Psych: Reports Calm
Physical Exam
Vital Signs
Vital Signs
Temp Pulse BP Pulse Ox
98.3 F 71 101/56 100
11/11/23 13:33 11/11/23 13:33 11/11/23 13:33 11/11/23 13:33
Physical Exam
General: Comfortable; Negative Pain, Fever or Chills
HEENT: Normocephalic, Moist Mucous Membranes and PERRLA
Respiratory: Clear; Negative Wheezes, Rales or Rhonchi
Cardiac: S1/S2, Regular Rhythm and Murmur (3/6 systolic murmur); Negative Rub or Peripheral Edema
Breast: Deferred by me
GI: Soft, Non Tender, Non Distended, Normal Bowel Sounds and No Hepatosplenomegaly
Rectal: Deferred by Provider
Musculoskeletal: No Clubbing and No Cyanosis
Skin: Warm and Dry; Negative Rash or Jaundice
Neuro: AO x 3 and Other (Very hard of hearing); Negative Slurred Speech, Facial Droop, Tremors or Sedated
Psych: Calm
Impression / Plan
-
Medical consultation
Impression/plan:
Admit to [facility]
#Rectal mass with continued rectal bleeding
-S/P chemo/XRT by Dr. Tenorio
#Recent mucosal ulceration mid rectum treated with APC 11/05/2023,-Was recommended for rectal mass surgical resection on 11/15/2023
BP 101/56, Hgb 9, PLT 106
-general surgery on board-plan for OR tomorrow surgical resection
-N.p.o. after midnight
-Follow CBC, BMP
#Acute on chronic blood loss anemia 2/2 rectal blood loss/chemotherapy
Had recent 4 units PRBC transfused 11/04/2023 admission
Hgb 9, PLT 106�stable
-Obtain type and screen
-General surgery on board
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
Follows with Dr. Duarte
-Completed 8 out of 9 of FOLFOX chemotherapy treatments
Hgb 9, PLT 106�stable
-Follow CBC
#Severe critical aortic stenosis
TAVR can be placed once hemodynamically stable with hemoglobin greater than 10/and post rectal mass excision�per last admission evaluation
2D echo 08/05/2023: EF 60-65%. Mild LVH no wall abnormalities severe aortic stenosis peak mean gradient 76 mmHg, moderate MR
#Chronic heart failure preserved EF
I/O, daily weight
-Follows with [facility]ology
#Discoid lupus
#A-fib unknown type
-No AC therapy given anemia and ongoing GI bleeding due to rectal mass
#Depression Hx
-Continue Zoloft 50 mg every afternoon
Other PMH:
Osteoarthritis
Vitamin B12 deficiency
DVT prophylaxis
SCDs
Full code

Documented by User: Ara Corrigan MD 11/11/23 15:34
Impression / Plan
-
Medical consultation
I saw and examined the patient.
The [employer] MACHINE's note was reviewed and I agree with the note see changes
.
78-year-old female with history of rectal cancer and recurrent lower GI bleed was recently admitted here. Her hemoglobin was found to be 6.1 and dropped to 5.3 she got 4 units of blood prior to discharge on 11/06/2023. She was seen by oncology and
colorectal surgery. Patient was supposed to finish chemotherapy she has had 8 out of 9 planned treatments with FOLFOX regimen. She also had a mucosal ulceration in the mid rectum which was treated with APC. The plan was for patient to get
surgical resection on 11/25/2023. She was still continuing to have bleeding therefore was brought in to get surgery earlier. Denies any dizziness chest pain or shortness of breath. Patient also has aortic stenosis for which she is undergoing
evaluation to get TAVR.
On examination awake alert oriented
Cardiovascular system S1-S2 appreciated, systolic murmur at aortic area
Chest clear to auscultation
Abdomen soft and nontender
No pedal edema noted
Neuroexam is nonfocal
# Rectal cancer with bleeding
Type and screen
Blood consent obtained
Transfuse if needed-hemoglobin is 9.0 today
Surgery planning per colorectal surgeon
High risk surgery given patient's critical aortic stenosis
Would get cardiology opinion also
Check Pre OP EKG
# Pancytopenia-likely chemo related
#Rectal cancer diagnosed in February 2023 stage IIIb-mid rectal
underwent 8 out of 9 planned chemotherapy with FOLFOX
Had Finished Radiation Therapy in [address] Faby Henderson
# Chronic heart failure with preserved ejection fraction
Echo 08/05/2023-LV mildly dilated, normal LV systolic function. Mild concentric LVH. Normal RV size and function. Moderate MR. Severe .
# Paroxysmal atrial fibrillation-not on anticoagulation
# Severe aortic stenosis--follows with Dr. Torres. Undergoing work up for TAVR
# Anemia related to malignancy and also acute blood loss secondary to rectal bleeding
# Depression-continue sertraline
# Osteoarthritis
# History of discoid lupus
# Hypoalbuminemia
# Infrarenal abdominal aortic aneurysm, measuring 3.5 cm
# Ex-smoker
# SCD for DVT Prophylaxis
# Full CODE
Impression/plan:
Admit to Tele
#Rectal mass with continued rectal bleeding
-S/P chemo/XRT by Dr. Tenorio
#Recent mucosal ulceration mid rectum treated with APC 11/05/2023
-Was recommended for rectal mass surgical resection on 11/15/2023
BP 101/56, Hgb 9, PLT 106
-general surgery on board
#Acute on chronic blood loss anemia 2/2 rectal blood loss/chemotherapy
Had recent 4 units PRBC transfused 11/04/2023 admission
Hgb 9, PLT 106�stable
-Obtain type and screen
-General surgery on board
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
Follows with Dr. Duarte
-Completed 8 out of 9 of FOLFOX chemotherapy treatments
Hgb 9, PLT 106�stable
#Severe critical aortic stenosis
TAVR can be placed once hemodynamically stable with hemoglobin greater than 10/and post rectal mass excision�per last admission evaluation
2D echo 08/05/2023: EF 60-65%. Mild LVH no wall abnormalities severe aortic stenosis peak mean gradient 76 mmHg, moderate MR
#Chronic heart failure preserved EF
I/O, daily weight
-Follows with [facility]ology
#Discoid lupus
#A-fib unknown type
No AC therapy given anemia and ongoing GI bleeding due to rectal mass
#Depression Hx
-Continue Zoloft 50 mg every afternoon
Other PMH:
Osteoarthritis
Vitamin B12 deficiency
DVT prophylaxis
SCDs
Full code
--- NOTE | 2023-11-11 15:13 | W.PN.CD ---
Addendum entered and electronically signed by Donny Sebastian MD 11/11/23 18:13:
78 yo female with PMH of severe , and also rectal cancer with recurrent bleeding, requiring pRBC. She has no chest pain. Exam with RRR, III/ systolic murmur at RUSB, no edema. Hgb 9.0.
Plan is to transfuse with goal Hgb 10. Patient will undergo high risk colorectal surgery tomorrow. Then TAVR evaluation to be completed afterwards.
Original Note:
Today's Communication / Plan
-
Patient to be transfused to keep hgb >10
Follow volume
Surgery tomorrow with Dr. Tenorio as planned
Will obtain EKG and recommend telemetry
Impression / Plan
-
Assessment/Plan: 78-year-old female (patient of Dr. Torres) with critical , rectal cancer (hx radiation, chemotherapy-FOLFOX), recurrent rectal bleeding, anemia requiring transfusions, PAF (not on OAC due to bleeding), and HFpEF who was recently
admitted with rectal bleeding and severe anemia (hgb 6.1) requiring transfusion, with colonoscopy with APC treatment. Dr. Knight evaluated during hospitalization and recommended transfusion for goal hgb 10 or higher, and after multidisciplinary
discussion, low anterior resection first and then TAVR after recovery. Surgery was planned for Saturday, but patient had rectal bleeding throughout the weekend and now surgery is planned for tomorrow with Dr. Tenorio (low anterior resection and
ileostomy).
Rectal cancer, bleeding:
-patient had chemo/radiation
-plan is for low anterior resection and ileostomy tomorrow
-Transfuse to hemoglobin 10 or higher- currently 9 and ordered 1 unit PRBC- monitor volume
-EKG pre-op. Telemetry post-op.
-Dr. Knight note 11/06/23: 'I have discussed the situation with Dr. Tenorio and with Dr. Tien Valentine of cardiac anesthesia. We are concerned about placing a valve preoperatively as this will require aspirin which will undoubtedly increase her episodes
of lower GI bleeding. Dr. Valentine and Dr. Tenorio have discussed risk of cardiac complications from low anterior resection surgery. She is absolutely a high risk patient. The feeling is that she can be managed by cardiac anesthesia and undergo the
needed surgery with a plan for TAVR following full recovery. If she gets significantly ill perioperatively, we can perform balloon aortic valvuloplasty as an interim stabilizing procedure. '
Aortic stenosis: critical
-Echo 07/16/23: Left ventricle is mildly dilated.Normal left ventricular systolic function. Mild concentric left ventricular hypertrophy. Indexed LA volume is severely abnormal (> 48 mL/m2). Moderate mitral regurgitation. Severe aortic stenosis. The
peak gradient across the valve is 126 mmHg with a mean of 76 mmHg. Color flow pattern suggestive of small PFO.
-per notes, only gets symptomatic when her hemoglobin gets quite low. Currently denies any SOB, CP, or dizziness.
-plan for eventual TAVR as detailed above
PAF:
-RR regular to auscultation
-EKG/tele as above
-not on OAC due to bleeding/anemia
HFpEF: chronic
-monitor volume
-does not appear volume overloaded to assessment
Physical Exam
Vital Signs/Labs
Vital Signs
Temp Pulse BP Pulse Ox
98.3 F 71 101/56 100
11/11/23 13:33 11/11/23 13:33 11/11/23 13:33 11/11/23 13:33
Physical Exam
Constitutional: No acute distress
EENT: Anicteric
Cardiovascular: Rhythm & rate is regular, Pedal edema is absent and Systolic murmur present (IV/)
Respiratory: Respiratory effort normal and Lungs clear to auscul.
Neuro/Psych: AO x 3
Data Reviewed
-
Date of Service: November 11, 2023
EKG: Tracing Personally Visualized and interpreted (10/16/23- SR [facility]), Ordered by me and Other (SR)
Labs: Labs Reviewed by me
[2023-11-11] MEDS: NEOMYCIN 1000 MG PO ×3 (15:30→23:53)
[2023-11-11] MEDS: NULYTELY SOLUTION 4 LITERS PO (15:30)
[2023-11-11] MEDS: FLAGYL 1000 MG PO ×3 (15:31→23:53)
[2023-11-11 16:22] VITALS: BP 116/58
[2023-11-11 16:45] VITALS: BP 120/52
--- NOTE | 2023-11-11 17:02 | VATNOTE ---
CathFlo instilled by other RN. Port flushes easily and has a brisk blood return.
[2023-11-11] MEDS: ZOLOFT 50 MG PO (17:24)
--- NOTE | 2023-11-11 18:30 | PTCARENOTE ---
Patient was a direct admit for preparation for colorectal surgery tomorrow.The patient is alert and oriented.Vital signs are stable.She will receive a unit of blood tonight and will have her hemoglobin rechecked as well.The goal is to keep her
hemoglobin above 10.The patient is in her bed and the call desai is in reach.
[2023-11-11 19:45] VITALS: BP 112/57
[2023-11-11 20:48] LABS: Hemoglobin 9.7 g/dL (12.0-16.0)
[2023-11-11 23:07] VITALS: BP 111/49
[2023-11-12] VITALS (15 sets, daily range): BP systolic 91–167; BP diastolic 44–74; PULSE 2–109; BMI 25.6
[2023-11-12] MEDS: NORMOSOL-R 1000 IV ×2 (00:12→22:17)
[2023-11-12 08:20] LABS: Hematocrit 25.6 % (37.0-47.0); Hemoglobin 8.4 g/dL (12.0-16.0)
--- NOTE | 2023-11-12 10:03 | W.PN.CRS1 ---
Today's Communication / Plan
-
pRBC x 2
OR today
Assessment/Plan
-
78-year-old female with PMH of stage III rectal cancer s/p ROOSEVELT, severe (pending TAVR), HFpEF, paroxysmal A-fib who has been having persistent bleeding from her rectal cancer requiring multiple transfusions despite repeat flex sig with APC;
preadmitted for LAR today
WBC 4.0, Hb 8.4, platelets 106
� Keep n.p.o. with IVF for OR today
� Hold DVT PPx
� Trend CBC; per cardiology, maintain Hb greater than 10.0; ordered 2 PRBCs for this morning preoperatively
�Ostomy marking completed
� OOB/IS
� Appreciate cardiology
� Appreciate hospitalist
Subjective Data
Subjective Data
Date of Service: November 12, 2023
No overnight events.
Denies any pain.
Denies nausea/vomiting. Patient is NPO.
No blood per rectum overnight, no BMs either. +voiding
Pt is OOB.
Objective Data
-
Vital Signs
Temp Pulse Resp BP Pulse Ox
98.4 F 59 16 111/46 98
11/12/23 07:10 11/12/23 07:10 11/12/23 07:10 11/12/23 07:10 11/12/23 08:00
Intake & Output
11/11/23 11/12/23 11/13/23
06:59 06:59 06:59
Intake Total 1090 / 1090
Balance 1090 / 1090
Intake:
Oral fluids 240 / 240
IV fluids (Total) 350 / 350
Blood products 250 / 250
Blood Product Amount Infused ( 250 / 250
mL)
Packed Rbc Leukoreduced Unit 250 / 250
[id number]
Other:
Number of approximated MODERATE 2
amounts of urine
Lab Results
11/12/23 08:04
11/12/23 07:57
Physical Exam
-
General: No Acute Distress and AOx3
HEENT: Grossly Normal
Abdomen: Soft, Non Distended, Non Tender, No Guarding and No Rebound
Skin: Warm and Dry
--- NOTE | 2023-11-12 10:10 | W.PN.HOSP.TC ---
Addendum entered and electronically signed by Ara Corrigan MD 11/12/23 12:24:
Labs noted and d/w colorectal.
Original Note:
Today's Communication/Plan
-
Add on labs to check platelet count-106 K yesterday
BMP ordered stat prior to OR
Blood transfusion-2 units today
Assessment / Plan
Assessment / Plan
78-year-old female with history of rectal cancer and recurrent lower GI bleed was recently admitted here. Her hemoglobin was found to be 6.1 and dropped to 5.3 she got 4 units of blood prior to discharge on 11/06/2023. She was seen by oncology and
colorectal surgery. Patient was supposed to finish chemotherapy she has had 8 out of 9 planned treatments with FOLFOX regimen. She also had a mucosal ulceration in the mid rectum which was treated with APC. The plan was for patient to get
surgical resection on 11/25/2023. She was still continuing to have bleeding therefore was brought in to get surgery earlier. Denies any dizziness chest pain or shortness of breath. Patient also has aortic stenosis for which she is undergoing
evaluation to get TAVR.
On examination awake alert oriented
Cardiovascular system S1-S2 appreciated, systolic murmur at aortic area
Chest clear to auscultation
Abdomen soft and nontender
No pedal edema noted
# Rectal cancer with bleeding
Transfuse 2 more units of blood for surgery today
High risk surgery given patient's critical aortic stenosis
Patient is for operating room today after blood transfusion
# Pancytopenia-likely chemo related
#Rectal cancer diagnosed in February 2023 stage IIIb-mid rectal
underwent 8 out of 9 planned chemotherapy with FOLFOX
Had Finished Radiation Therapy in April [address] Faby Henderson
# Chronic heart failure with preserved ejection fraction
Echo 08/05/2023-LV mildly dilated, normal LV systolic function. Mild concentric LVH. Normal RV size and function. Moderate MR. Severe .
# Paroxysmal atrial fibrillation-not on anticoagulation
# Severe aortic stenosis--follows with Dr. Torres. Undergoing work up for TAVR-cardiology following
# Anemia related to malignancy and also acute blood loss secondary to rectal bleeding
# Depression-continue sertraline
# Osteoarthritis
# History of discoid lupus
# Hypoalbuminemia
# Infrarenal abdominal aortic aneurysm, measuring 3.5 cm
# Ex-smoker
# SCD for DVT Prophylaxis
# Full CODE
Discussed with nursing
Discussed with sister at bedside
Anticipated Discharge: > 48 hours
Subjective/Interval History
-
Date of Service: November 12, 2023
Objective Data
-
Labs:
Laboratory Results
11/12/23 11/12/23
07:57 08:04
WBC Cancelled
Hgb Cancelled 8.4 L
Hct Cancelled 25.6 L
Plt Count Cancelled
Sodium Cancelled
Potassium Cancelled
Chloride Cancelled
Carbon Dioxide Cancelled
BUN Cancelled
Creatinine Cancelled
Glucose Cancelled
Calcium Cancelled
Vital Signs:
Vital Signs
Temp Pulse Resp BP Pulse Ox
98.4 F 59 16 111/46 98
11/12/23 07:10 11/12/23 07:10 11/12/23 07:10 11/12/23 07:10 11/12/23 08:00
I&O
11/11/23 11/12/23 11/13/23
06:59 06:59 06:59
Intake Total 1090 / 1090
Balance 1090 / 1090
[2023-11-12 10:22] LABS: % Basophils 1.3 % (0-2); % Eosinophils 3.6 % (0-6); % Lymphocytes 16.5 % (20.5-51.1); % Monocytes 10.7 % (1.7-9.3); % Neutrophils 67.9 % (42.2-75.2); Absolute Eosinophils 0.1 10^3/uL (0-0.7); Absolute Lymphocytes 0.4 10^3/uL (1.2-3.4); Absolute Monocytes 0.2 10^3/uL (0.1-0.6); Absolute Neutrophils 1.5 10^3/uL (1.4-6.5); Mean Corp Hgb Conc. 33.1 g/dL (33.0-37.0); Mean Corpuscular Hgb 31.6 pg (27.0-31.0); Mean Corpuscular Volume 95.5 fL (81.0-99.0); Mean Platelet Volume 11.1 fL (7.4-10.4); Nucleated Red Blood Cells % 0 %; Platelet Count 86 10^3/uL (130-400); Red Blood Cell Count 2.66 10^6/uL (4.20-5.40); Red Cell Dist. Width 20.2 % (11.5-14.5)
[2023-11-12 10:25] LABS: White Blood Cell Count 2.2 10^3/uL (4.8-10.8)
[2023-11-12 11:11] LABS: Blood Urea Nitrogen 11 mg/dl (7-17); Calcium 9.3 mg/dl (8.4-10.2); Carbon Dioxide 22 mmol/L (22-30); Chloride 114 mmol/L (98-107); Estimated Creatinine Clearance 56 ml/min; Glucose 87 mg/dl (70-99); Potassium 4.6 mmol/L (3.5-5.1); Sodium 138 mmol/L (135-145); eGFR > 60.00
[2023-11-12] MEDS: NEURONTIN 600 MG PO (11:48)
[2023-11-12] MEDS: TYLENOL 1000 MG PO (11:48)
--- NOTE | 2023-11-12 13:12 | PTCARENOTE ---
patient sent to OR with blood transfusing. Blood completed in OR at the start of the case. No pink slip. VS obtained from anesthesia record.
--- NOTE | 2023-11-12 14:54 | CM ---
Initial assessment completed with patient with sister in room. 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
hospitalizations,. [facility]acy is [facility] in [place] and PCP is Allyson Marie. Anticipate Home with no needs. Patient is in agreement.
--- NOTE | 2023-11-12 20:49 | W.OR.REC1 ---
Rectal Surgery Post Op Note
Immediate Post Op
Primary Surgeon: Arturo Tenorio MD
Assisting Surgeon: Mahesh Martinez MD
Pre-op Diagnosis: Rectal cancer
Post-op Diagnosis: Same
Procedure Performed: Robotic low anterior resection with takedown of splenic flexure, intracorporeal anastomosis and diverting loop ileostomy
Anesthesia Type: GET
Specimen / Cultures: Rectosigmoid (open end is distal)
Estimated Blood Loss: 100cc
Complications: None
Operative Findings: No evidence of metastatic disease
Mild cirrhosis of the liver
Tumor 4cm from the anorectal ring
28mm EEA
diverting loop ileostomy
#19 Cruz drain in the pelvis
Patient's sisters updated.
Cancer Report
ASA Score: IV
Case Status: Elective
Operation: Low anterior resection
Modailty: Robotic
Location of tumor within rectum: Low
Height of lower edge of tumor from anal verge: 4cm
Mobilization of splenic flexure: Yes
Level of ligation of inferior mesenteric artery: Inferior mesenteric artery
Level of ligation of inferior mesenteric vein: High
Level of rectal transectiondistal to distal edge of tumor: 1.5 cm
Type of Reconstruction: Stapled end-end
Anastomotic testing method(s): Observation of circular stapler rings only
Creation of stoma: Ileostomy
Completeness of tumor resection: R0
Blood transfusion: Yes
Total Mesorectal Excision photographed: in operative report
--- NOTE | 2023-11-12 22:00 | PTCARENOTE ---
Patient received from OR, lethargic, pupils 1mm and sluggish. NSR on monitor, afebrile, blood pressure as documented. Palpable pulses throughout, +1 upper extremity edema noted, +1 orbital edema noted. Lungs with crackles bilaterally, pulse ox 99%
on simple mask 6L. Abdomen round, soft, with hypoactive bowel sounds. Illeostomy budded with small amount of bloody drainage. RLQ P draining serosnguineous. 3 surgical sites approximated with glue. Regan catheter draining clear yellow urine.
#18 g in right wrist with IVF infusing, #20 g in left forearm flushed and patent, left SC port flushed and patent, left radial Witter transduced and zereod. CHG bath given, family updated.
[2023-11-12 22:05] LABS: Hemoglobin 12.9 g/dL (12.0-16.0); Mean Corp Hgb Conc. 33.9 g/dL (33.0-37.0); Mean Corpuscular Hgb 30.6 pg (27.0-31.0); Mean Corpuscular Volume 90.3 fL (81.0-99.0); Mean Platelet Volume 10.7 fL (7.4-10.4); Platelet Count 107 10^3/uL (130-400); Red Blood Cell Count 4.21 10^6/uL (4.20-5.40); Red Cell Dist. Width 21.3 % (11.5-14.5); White Blood Cell Count 7.7 10^3/uL (4.8-10.8)
[2023-11-12 22:23] LABS: Blood Urea Nitrogen 11 mg/dl (7-17); Calcium 8.7 mg/dl (8.4-10.2); Carbon Dioxide 19 mmol/L (22-30); Chloride 110 mmol/L (98-107); Estimated Creatinine Clearance 65 ml/min; Glucose 122 mg/dl (70-99); Sodium 136 mmol/L (135-145); eGFR > 60.00
[2023-11-12 22:34] LABS: B.E. -8.4 mmol/L; HCO3 23.5 mmol/L (21-28); O2 Saturation % 97.7 % (94-98); PO2 104 mmHg (83-108)
[2023-11-12 22:37] LABS: PCO2 81 mmHg (32-35); pH 7.07 (7.35-7.45)
[2023-11-12] MEDS: ZOLOFT PO (22:37)
[2023-11-12] MEDS: NORMOSOL-R IV (22:38)
--- NOTE | 2023-11-12 22:44 | PTCARENOTE ---
ABG noted, order received for BiPap
--- NOTE | 2023-11-12 23:54 | PTCARENOTE ---
Patient reassessed, patient will open eyes when name is called, remains on BiPap 12/5 with 10L. repeat ABG sent
[2023-11-13] VITALS (27 sets, daily range): BP systolic 99–169; BP diastolic 47–91; PULSE 2–70; BMI 26.9
[2023-11-13 00:02] LABS: B.E. -6.7 mmol/L; HCO3 20.6 mmol/L (21-28); O2 Saturation % 99.3 % (94-98); PCO2 47 mmHg (32-35); PO2 153 mmHg (83-108); pH 7.25 (7.35-7.45)
[2023-11-13] MEDS: NORMOSOL-R 1000 IV (03:03)
[2023-11-13 04:38] LABS: B.E. -7.5 mmol/L; HCO3 18.8 mmol/L (21-28); O2 Saturation % 98.8 % (94-98); PCO2 40 mmHg (32-35); PO2 185 mmHg (83-108); pH 7.28 (7.35-7.45)
[2023-11-13 04:39] LABS: O2 Therapy 40%
[2023-11-13 04:48] LABS: Hematocrit 39.2 % (37.0-47.0); Hemoglobin 12.9 g/dL (12.0-16.0); Mean Corp Hgb Conc. 32.9 g/dL (33.0-37.0); Mean Corpuscular Hgb 30.1 pg (27.0-31.0); Mean Corpuscular Volume 91.6 fL (81.0-99.0); Mean Platelet Volume 10.3 fL (7.4-10.4); Platelet Count 101 10^3/uL (130-400); Red Blood Cell Count 4.28 10^6/uL (4.20-5.40); Red Cell Dist. Width 21.2 % (11.5-14.5); White Blood Cell Count 9.7 10^3/uL (4.8-10.8)
--- NOTE | 2023-11-13 04:59 | PTCARENOTE ---
KAITLIN dressing saturated, dressing changed, labs drawn, ABG noted, Patient conversing, following commands, BiPap removed, placed on 4L nasal cannula, denies pain. Repositioned in bed, plan of care discussed.
[2023-11-13 05:14] LABS: Blood Urea Nitrogen 10 mg/dl (7-17); Calcium 8.9 mg/dl (8.4-10.2); Carbon Dioxide 18 mmol/L (22-30); Chloride 111 mmol/L (98-107); Estimated Creatinine Clearance 73 ml/min; Glucose 127 mg/dl (70-99); Potassium 3.9 mmol/L (3.5-5.1); Sodium 139 mmol/L (135-145); eGFR > 60.00
--- NOTE | 2023-11-13 07:45 | W.PN.ANS.POP ---
Anesthesia Post Operative
- Anesthesia Post Op Note
Vital Signs Stable-See Nursing Note: Yes
Airway Patent: Yes (NC)
Adequate Pain Control: Yes
Change in Mental Status: No
Current Postoperative Nausea & Vomiting: No
Anesthesia Complications: No
General Anesthetic Recall: No
Unplanned Admission: No
Post Op Hydration Adequate: Yes (IV)
--- NOTE | 2023-11-13 08:53 | W.PN.CRS1 ---
Today's Communication / Plan
-
Okay for downgrade to IMU
Start clears
Continue Regan
Start Lovenox DVT PPx
Assessment/Plan
-
78-year-old female with PMH of stage III rectal cancer s/p ROOSEVELT, severe (pending TAVR), HFpEF, paroxysmal A-fib who has been having persistent bleeding from her rectal cancer requiring multiple transfusions despite repeat flex sig with APC;
preadmitted for LAR today
POD1 robotic LAR with DLI, ashlee drain in pelvis
WBC 4.0, Hb 12.9, platelets 101, UOP 900mL
�Okay for downgrade to IMU with telemetry
� Okay for clears
�Continue Regan for strict I/O's
� Pain control with Tylenol and Dilaudid as needed
�Okay for DVT PPx with Lovenox
� Trend CBC; per cardiology, maintain Hb greater than 10.0; ordered 2 PRBCs for this morning preoperatively
� Appreciate [facility] for ostomy education and supplies
� OOB/IS
� Appreciate cardiology
� Appreciate hospitalist
Subjective Data
Subjective Data
Date of Service: November 13, 2023
No overnight events.
Pain controlled.
Denies nausea/vomiting.
-Ostomy function +voiding
Pt is OOB.
Objective Data
-
Vital Signs
Temp Pulse Resp BP Pulse Ox
98 F 84 16 144/66 98
11/13/23 07:25 11/13/23 06:30 11/13/23 06:30 11/13/23 06:00 11/13/23 06:40
Intake & Output
11/12/23 11/13/23 11/14/23
06:59 06:59 06:59
Intake Total 1090 / 1090 900 / 900
Output Total 1040 / 1040
Balance 1090 / 1090 -140 / -140
Intake:
Oral fluids 240 / 240
IV fluids (Total) 350 / 350 900 / 900
Normosol-R 1,000 ml @ 100 mls/ 800 / 800
hr IV .Q10H [facility] Rx#:[id number]
Blood products 250 / 250
Blood Product Amount Infused ( 250 / 250 0 / 0
mL)
Packed Rbc Leukoreduced Unit 250 / 250
[id number]
Packed Rbc Leukoreduced Unit 0 / 0
[id number]
Output:
Drain Output (Total) 140 / 140
Right Lower Abdomen César- 140 / 140
Singh
Urine, Regan 900 / 900
Other:
Number of approximated MODERATE 2
amounts of urine
Number of approximated LARGE 1
amounts of urine
Lab Results
11/13/23 04:29
11/13/23 04:29
Physical Exam
-
General: No Acute Distress and AOx3
HEENT: Grossly Normal
Abdomen: Soft, Non Distended, Tender (Appropriately tender), No Guarding and No Rebound
Skin: Warm and Dry
Wound: No Signs of Infection and Dressing in Place (With Dermabond)
Incision: No Skin Erythema
--- NOTE | 2023-11-13 09:03 | W.PN.CD ---
Today's Communication / Plan
-
POD #1
Hemodynamically stable
- resp status stable on 2 liters.
- few crackles . may be atelectasis but need to assess for HF.
-monitor volume status and check CXR today
- in sinus. Monitor on tele.
Impression / Plan
-
Assessment/Plan: 78-year-old female (patient of Dr. Torres) with critical , rectal cancer (hx radiation, chemotherapy-FOLFOX), recurrent rectal bleeding, anemia requiring transfusions, PAF (not on OAC due to bleeding), and HFpEF who was recently
admitted with rectal bleeding and severe anemia (hgb 6.1) requiring transfusion, with colonoscopy with APC treatment. Dr. Knight evaluated during hospitalization and recommended transfusion for goal hgb 10 or higher, and after multidisciplinary
discussion, low anterior resection first and then TAVR after recovery. Surgery was planned for Saturday, but patient had rectal bleeding throughout the weekend and now surgery is planned for tomorrow with Dr. Tenorio (low anterior resection and
ileostomy).
s/p robotic LAR with DLI, ashlee drain in pelvis by Dr Tenorio 11/12/23
- stable post op
-monitor closely in patietn with severe -
-crackles at bases but stable O2 sats on 2 liters. Check CXR and monitor volume status . May need to reassess amountof IVF.
Rectal cancer,
-patient had chemo/radiation
- recurrent rectal bleeding and symptomatic anemia requiring transfusions pre op
- - Now post op robotic LAR with DLI, ashlee drain in pelvis
- Hb stable post op - monitor.
Aortic stenosis: critical
-Echo 07/16/23: Left ventricle is mildly dilated.Normal left ventricular systolic function. Mild concentric left ventricular hypertrophy. Indexed LA volume is severely abnormal (> 48 mL/m2). Moderate mitral regurgitation. Severe aortic stenosis. The
peak gradient across the valve is 126 mmHg with a mean of 76 mmHg. Color flow pattern suggestive of small PFO.
-monitor volume status and check CXR today
-plan for eventual timing based on recovery from surgery . will be decided as outpatietn after recovery.
PAF:
-RR regular to auscultation
-EKG/tele as above
-not on OAC due to bleeding/anemia
HFpEF: chronic
-monitor volume
Physical Exam
Vital Signs/Labs
Vital Signs
Temp Pulse Resp BP Pulse Ox
98 F 84 16 144/66 98
11/13/23 07:25 11/13/23 06:30 11/13/23 06:30 11/13/23 06:00 11/13/23 06:40
11/12/23 11/13/23 11/14/23
06:59 06:59 06:59
Actual Weight 65.516 kg 68.8 kg
11/13/23 04:29
11/13/23 04:29
Physical Exam
Constitutional: No acute distress
Cardiovascular: Rhythm & rate is regular and Systolic murmur present
Respiratory: Wheeze Absent, Rhonchi Absent and Other (crackles at bases )
GI: Soft, Non tender, Normal bowel sounds and Abdomen is tender
Neuro/Psych: Alert, Oriented and AO x 3
Data Reviewed
-
Date of Service: November 13, 2023
Medical Decision Making: Reviewed Test Results
Echo: Report Reviewed by me
X-Ray/CT/US/MRI/NUC/PET: Other (ordered by me)
Medical Tests (PFT, Pathology etc): Discussed with Nurse
Labs: Labs Reviewed by me
--- NOTE | 2023-11-13 09:44 | W.PN.HOSP.TC ---
Today's Communication/Plan
-
Chest x-ray
Patient looks stable for transfer out of the ICU
Stop IV fluids
Clear liquids
Monitor drain output
Monitor hemoglobin
Encourage IS
Assessment / Plan
Assessment / Plan
78-year-old female with history of rectal cancer and recurrent lower GI bleed was recently admitted here. Her hemoglobin was found to be 6.1 and dropped to 5.3 she got 4 units of blood prior to discharge on 11/06/2023. She was seen by oncology and
colorectal surgery. Patient was supposed to finish chemotherapy she has had 8 out of 9 planned treatments with FOLFOX regimen. She also had a mucosal ulceration in the mid rectum which was treated with APC. The plan was for patient to get
surgical resection on 11/25/2023. She was still continuing to have bleeding therefore was brought in to get surgery earlier. Denies any dizziness chest pain or shortness of breath. Patient also has aortic stenosis for which she is undergoing
evaluation to get TAVR.
Post op in ICU as she was somnolent yesterday. now AAO3. On the phone. Denies any chest pain or shortness of breath
On examination awake alert oriented
Cardiovascular system S1-S2 appreciated, systolic murmur at aortic area
Chest few rales at bases.
Abdomen soft and nontender
No pedal edema noted
# Rectal cancer with bleeding
Transfused 2 units of blood before surgery today
High risk surgery given patient's critical aortic stenosis
S/P Robotic left anterior resection with diverting loop ileostomy on 11/12/2023.
Postoperatively in ICU
Hemoglobin is stable
Few rales at bases
Stop IV fluids
Chest x-ray
# Pancytopenia-likely chemo related
#Rectal cancer diagnosed in February 2023 stage IIIb-mid rectal
underwent 8 out of 9 planned chemotherapy with FOLFOX
Had Finished Radiation Therapy in April [address] Faby Henderson
# Chronic heart failure with preserved ejection fraction
Echo 08/05/2023-LV mildly dilated, normal LV systolic function. Mild concentric LVH. Normal RV size and function. Moderate MR. Severe .
# Paroxysmal atrial fibrillation-not on anticoagulation as outpatient due to rectal bleeding
# Severe aortic stenosis--follows with Dr. Torres. Undergoing work up for TAVR-cardiology following
# Anemia related to malignancy and also acute blood loss secondary to rectal bleeding
# Depression-continue sertraline
# Osteoarthritis
# History of discoid lupus
# Hypoalbuminemia
# Infrarenal abdominal aortic aneurysm, measuring 3.5 cm
# Ex-smoker
# SCD for DVT Prophylaxis-colorectal surgery planning to add Lovenox today
# Full CODE
Discussed with nursing
Anticipated Discharge: > 48 hours
Subjective/Interval History
-
Date of Service: November 13, 2023
Objective Data
-
Labs:
Laboratory Results
11/12/23 11/12/23 11/12/23
21:56 22:25 23:49
WBC 7.7
Hgb 12.9 D
Hct 38.0
Plt Count 107 L D
HCO3 23.5 20.6 L
Sodium 136
Potassium 4.0
Chloride 110 H
Carbon Dioxide 19 L
BUN 11
Creatinine 0.6
Glucose 122 H
Calcium 8.7
11/13/23
04:29
WBC 9.7
Hgb 12.9
Hct 39.2
Plt Count 101 L
HCO3 18.8 L
Sodium 139
Potassium 3.9
Chloride 111 H
Carbon Dioxide 18 L
BUN 10
Creatinine 0.6
Glucose 127 H
Calcium 8.9
Vital Signs:
Vital Signs
Temp Pulse Resp BP Pulse Ox
98 F 84 16 144/66 98
11/13/23 07:25 11/13/23 06:30 11/13/23 06:30 11/13/23 06:00 11/13/23 06:40
I&O
11/12/23 11/13/23 11/14/23
06:59 06:59 06:59
Intake Total 1090 / 1090 900 / 900
Output Total 1040 / 1040
Balance 1090 / 1090 -140 / -140
[2023-11-13] MEDS: TYLENOL 1000 MG PO (10:11)
--- NOTE | 2023-11-13 11:43 | CON.INTV ---
Documented by User: Pito Ely MD, Resident 11/13/23 12:22
Consultation
Consultation Request
Date/Time Consultation Requested: 11/12/2023 22:02
Date/Time Consultation Performed: 11/13/2023 08:00
Reason for Consultation: Critical care
Medical History
-
Chief Complaint: Shortness of breath
History of Present Illness:
This is a 78-year-old female with rectal cancer s/p robotic low anterior resection with diverting loop ileostomy 11/11. She was recently admitted to the hospital 11/03 with recurrent lower GI bleed. At that time, hemoglobin was found to be 6.1,
dropped to 5.3. She received multiple transfusion, with colonoscopy with APC treatment prior to discharge on 11/06/2023. Bleeding continued after discharge from the hospital, hence she returned as a direct admission for planned surgery. Post op
extubation, patient began to experience respiratory distress requiring ICU monitoring.
Past Medical History
Past Medical History: Other (Atrial fibrillation, rectal cancer, HFpEF, severe aortic stenosis, hypothyroidism)
Past Surgical History: Other (Appendectomy, tonsillectomy, laparoscopy with cyst aspiration)
Social History
Tobacco: Former Smoker (1ppd x 48 years)
Alcohol: None
Drug: None
Living: With Family
Family History
Family History: Reviewed & Not Pertinent
Allergies / Home Medications
Allergies
Allergy/AdvReac Type Severity Reaction Status Date / Time
Penicillins Allergy Hives Verified 10/16/23 10:27
Home Medications
�Medication �Instructions �Recorded �Confirmed �Last Taken �Type
Biotin (B7) 1 tab PO QPM Supplement 09/25/23 11/11/23 11/10/23 08:00 History
cyanocobalamin (vitamin B-12) 1,000 mcg PO QPM Supplement ##0 09/25/23 11/11/23 11/10/23 08:00 History
1,000 mcg tablet (Vitamin B-12)
loperamide 2 mg capsule 2 mg PO BID diarrhea 09/25/23 11/11/23 11/07/23 History
0800
pantothenic acid (vit B5) 1 tab PO QPM Supplement 09/25/23 11/11/23 11/10/23 08:00 History
sertraline 50 mg tablet 50 mg PO QPM Depression 09/25/23 11/11/23 11/10/23 08:00 History
vitamin B complex 1 tab PO QPM Supplement 09/25/23 11/11/23 11/10/23 08:00 History
polyethylene glycol 3350 17 gram 17 g PO DAILYPRN PRN constipation 11/06/23 11/11/23 Unknown Rx
oral powder packet (HealthyLax) #0 ea
Review of Systems
-
All other systems: Negative unless noted (Except as documented)
Vitals / Labs / Diagnostic Testing
Vital Signs
Temp Pulse Resp BP Pulse Ox
98.4 F 84 16 144/66 98
11/13/23 11:10 11/13/23 06:30 11/13/23 06:30 11/13/23 06:00 11/13/23 06:40
Lab Data
11/13/23 04:29
11/13/23 04:29
Laboratory Results
11/12/23 11/12/23 11/13/23
22:25 23:49 04:29
pH 7.07 L* 7.25 L 7.28 L
pCO2 81 H* 47 H 40 H
pO2 104 153 H 185 H
HCO3 23.5 20.6 L 18.8 L
O2 Delivery Level 40%
Diagnostic Testing:
Physical Exam
-
HEENT: Normocephalic and Anicteric
Cardiovascular: S1/S2, Regular Rhythm and Other (Systolic murmur present at the aortic area)
Respiratory: Other (Crackles present bilateral bases)
GI: Soft, Non Distended, Tender (Mildly tender) and Other (Urine Regan in place)
Neurology: Awake, Alert and Oriented (Oriented to time, place, person)
Skin: Warm and Dry
General: Other (No acute distress)
Assessment
-
Assessment
Acute respiratory distress
Rectal cancer with bleeding
S/p robotic low anterior resection with diverting loop ileostomy
Conditions present during admission
Chronic HFpEF
Severe aortic stenosis
Paroxysmal atrial fibrillation
Depression
Osteoarthritis
Plan
Patient initially placed on BiPAP due to hypercapnia post-op
Respiratory status stable on 2 L oxygen
s/p robotic low anterior resection with diverting loop ileostomy 11/12/2023
Hemodynamically stable
Hemoglobin stable postop, monitor CBC
IV fluids Dc'd
Repeat chest x-ray to evaluate crackles heard on physical exam
Echo from July 2023 with EF 65%, and severe aortic stenosis
cardiology following with plans for eventual TAVR, timing based on recovery from surgery
Not on anticoagulation for PAF due to rectal bleeding
Postop EKG NSR
DVT prophylaxis-Lovenox

Documented by User: Doris Ma MD 11/13/23 12:54
Medical History
Social History
Living: With Family
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
Family History
Family History: Reviewed & Not Pertinent (She family history negative for cancer, blood clots)
Physical Exam
-
General: Comfortable
Assessment
-
Assessment
Acute hypercapnic respiratory failure
Required BiPAP
Likely secondary to sedation/anesthesia, postoperative state
Acute respiratory distress, hypoxia
Rectal cancer with bleeding
S/p robotic low anterior resection with diverting loop ileostomy. 11/12/23
Conditions present during admission
Chronic HFpEF
nl EF, nl RVF
Severe aortic stenosis
JEAN CLAUDE 0.7cm
Paroxysmal atrial fibrillation
Depression
Osteoarthritis
Plan
Patient initially placed on BiPAP due to hypercapnia post-op
Respiratory status stable on 2 L oxygen
much improved at this time, Now awake, following commands
Most recent ABG 11/13/23 in the morning, pH 7.28/40/25
Will continue with BiPAP tonight given persistent acidemia.
Head of bed elevated
Given pain issues, need for narcotic therapy, may need intermittent BiPAP during the day depending on lethargy
s/p robotic low anterior resection with diverting loop ileostomy 11/12/2023
Hemodynamically stable
Hemoglobin stable postop, monitor CBC
IV fluids Dc'd
Repeat chest x-ray to evaluate crackles heard on physical exam CT TAVR reviewed from 11/05/2023. There may be some mild sob pleural interstitial changes at the base, cannot differentiate between atelectasis/scar
Follow clinically
Echo from July 2023 with EF 65%, and severe aortic stenosis
cardiology following with plans for eventual TAVR, timing based on recovery from surgery
Not on anticoagulation for PAF due to rectal bleeding
Postop EKG NSR
Will follow oxygen requirement closely given risk for heart failure
Presently 93% on room air, in no apparent distress
IV fluids per surgery, discontinued. Clear started
Incentive spirometry, out of bed to chair per surgery
DVT prophylaxis-Lovenox
Patient transferred out of ICU. We will sign off. Please call with questions

The above was reviewed at length. Patient seen and examined independently by myself and with the resident
Clinical course reviewed. Patient underwent surgery due to rectal bleeding.
Postoperatively, developed hypercapnic respiratory failure likely secondary to anesthesia requiring BiPAP and transferred to ICU.
Presently she is without chest pain, shortness of breath. She has a mild abdominal pain.
Diet has been advanced to clears
Social history, family history, review of systems, medications, allergies as above
Physical exam
Chest exam with minimal crackles, systolic murmur noted
Abdomen is nontender, no rebound or guarding
Data reviewed
ABGs reviewed, chest x-ray and prior CT chest reviewed
A/P
Moving forward, we will continue with supportive care. Diet has been advanced per surgery
Will need to follow fluid status closely. Chest x-ray suggest possible right pleural effusion, may be mild component of heart failure the patient is 93% on room air
Normal biventricular function per prior echocardiogram, severe aortic stenosis noted
Follow clinically
DVT prophylaxis has been started
Out of bed to chair as able
Incentive spirometry
TCCT 31 min
Patient transferred out of ICU. We will sign off. Please call with questions
--- NOTE | 2023-11-13 11:54 | WOUNDNOTE ---
XIN RN note: Patient s/p ostomy surgery
See H&P for complete history.
PMH: Rectal Mass, hearing impaired, Recent Chemotherapy treatment, osteoarthritis.
Ostomy location and type: RUQ Robotic LAR & diverting loop ileostomy for continued rectal bleeding, done 11/12/23. Stoma is pink and budded with bridge intact, no leakage noted. Answered all questions.
Instructed patient ostomy pouch emptying, encouraged to watch when staff empties pouch.
Manda wafer # [id number]
Manda pouch # [id number]
Ostomy supplies ordered from [facility] and asked nurse Jasbir to bring to bedside.
Note to case management: VN services recommended for ostomy teaching.
Nursing care plan updated, will follow for continued teaching and how to change appliance towards end of week. Patient aware, states she is too tired to learn much today and that no family will be involved in learning. Gave patient Ileostomy
information folder and encouraged to review when able.
--- NOTE | 2023-11-13 14:26 | CM ---
CM following re: discharge planning.
Discussed in Rounds, reviewed pt's chart, met with pt and two patient's sisters at bedside.
Pt is POD#1 s/p robotic LAR with DLI, Cruz drain in pelvis. per wound care, pt will need VN services for ostomy care.
CM discussed it with the pt, pt expressed her agreement. A list of VN vendors provided, pt preferred [facility]. A referral to [facility] made via TT to Lisa Sánchez.
D/C plan: home with [facility] for ostomy care and family support. Family to transport at discharge.
CM will follow with discharge plan updates as hospitalization progresses
--- NOTE | 2023-11-13 15:53 | PTCARENOTE ---
Patient received in AM with assessment as noted. Continues alert, oriented and pleasant. OOB to chair and ambulated in the room at 1500 with 1 person minimal assist. NSR with BBB on monitor. B/P's stable. Afebrile. A-line d/c'd in AM with direct
pressure applied to left radial site for 5 minutes and with no bleeding noted, dressing applied. Lungs with a few bilateral fine base crackles. Denies SOB. Sao2 94% on room air. Advanced to clear liq diet and tolerated well. IVF's d/c'd in AM.
Ileostomy draining a small amount of serosanguineous liquid. Regan draining kris urine. For transfer to IMU pending bed availability. Patient currently OOB to chair with telephone and call desai in reach.
[2023-11-13] MEDS: DILAUDID 0.25 MG IV (16:41)
[2023-11-13] MEDS: ZOLOFT 50 MG PO (18:20)
[2023-11-13] MEDS: LOVENOX 40 MG SC (18:20)
[2023-11-13] MEDS: DILAUDID 0.5 MG IV (20:24)
--- NOTE | 2023-11-13 20:45 | PTCARENOTE ---
Received patient at 1900. Pt. currently in bed. Awake, alert, and oriented. C/o pain discomfort in abdomen (surgical site). PRN pain medication given, see MAR. Afebrile. Heart rhythm sinus. Blood pressure normotensive. Currently on room air, pulse
oximetry 94%. Lungs sound diminished. Clear liquid diet ordered, pt. has decent appetite. Abdominal surgical site intact. Ileostomy intact. Regan catheter in place, draining without issue. Skin as documented. Discussed plan of care with patient.
Vital signs stable at this time.
[2023-11-14] VITALS (43 sets, daily range): BP systolic 75–140; BP diastolic 50–107; BMI 26.9
[2023-11-14] MEDS: DILAUDID 0.5 MG IV ×5 (00:15→20:34)
[2023-11-14] MEDS: CARDIZEM 10 MG IV ×2 (00:47→02:14)
--- NOTE | 2023-11-14 00:48 | W.PN.UPDATE ---
Update Note
Progress Note Update
0045- Patient's heart rate sustained 140s in rapid afib SBP 90s. EKG obtained, afib. Initiated Cardizem gtt with bolus IV for rate control.
[2023-11-14] MEDS: CARDIZEM 125 IV (00:54)
--- NOTE | 2023-11-14 01:00 | PTCARENOTE ---
Pt. heart rate elevated as high as 160s. [employer]CENTR[employer] OPERATOR notified. EKG obtained, shows Afib RVR. 10mg IV Cardizem bolus given. Cardizem infusion started after bolus. Pt. currently lying comfortably in bed. Denies chest pain. Will continue to monitor.
--- NOTE | 2023-11-14 02:30 | PTCARENOTE ---
Patient's heart rate remains elevated in 1200s to 130s with bursts to 150s. Cardizem gtt now infusing at max dose of 15mg/hr. 2nd 10mg IV bolus of cardizem given. Pt. continues to deny chest pain. AM labs sent.
[2023-11-14 03:15] LABS: Hematocrit 37.6 % (37.0-47.0); Hemoglobin 12.9 g/dL (12.0-16.0); Mean Corp Hgb Conc. 34.3 g/dL (33.0-37.0); Mean Corpuscular Hgb 30.7 pg (27.0-31.0); Mean Corpuscular Volume 89.5 fL (81.0-99.0); Mean Platelet Volume 9.8 fL (7.4-10.4); Platelet Count 136 10^3/uL (130-400); Red Cell Dist. Width 21.2 % (11.5-14.5)
[2023-11-14 03:36] LABS: Blood Urea Nitrogen 11 mg/dl (7-17); Calcium 8.8 mg/dl (8.4-10.2); Carbon Dioxide 25 mmol/L (22-30); Chloride 109 mmol/L (98-107); Estimated Creatinine Clearance 63 ml/min; Glucose 100 mg/dl (70-99); Magnesium 1.9 mg/dl (1.6-2.3); Potassium 3.8 mmol/L (3.5-5.1); Sodium 134 mmol/L (135-145); eGFR > 60.00
--- NOTE | 2023-11-14 05:05 | PTCARENOTE ---
Pt. becoming more hypotensive while on Cardizem gtt. Heart rate has improved from earlier. Spoke with [facility] WRITER / RUNNER. Will decrease Cardizem gtt from 15mg/hr to 10mg/hr and see if BP improves.
--- NOTE | 2023-11-14 07:28 | W.PN.CD ---
Today's Communication / Plan
-
afib with RVR.
Surprising lack of symptoms with rapid rates and severe
now on IV cardizem but BP will limit degree of use. Will try and avoid hypotension particularly with severe/ critical
transition to IV amiodarone
Holding on anticoagulation due to recent surgery
Impression / Plan
-
Assessment/Plan: 78-year-old female (patient of Dr. Torres) with critical , rectal cancer (hx radiation, chemotherapy-FOLFOX), recurrent rectal bleeding, anemia requiring transfusions, PAF (not on OAC due to bleeding), and HFpEF who was recently
admitted with rectal bleeding and severe anemia (hgb 6.1) requiring transfusion, with colonoscopy with APC treatment. Dr. Knight evaluated during hospitalization and recommended transfusion for goal hgb 10 or higher, and after multidisciplinary
discussion, low anterior resection first and then TAVR after recovery. Surgery was planned for Saturday, but patient had rectal bleeding throughout the weekend and now surgery is planned for tomorrow with Dr. Tenorio (low anterior resection and
ileostomy).
s/p robotic LAR with DLI, ashlee drain in pelvis by Dr Tenorio 11/12/23
- stable post op
-monitor closely in patient with severe -
-crackles at bases but stable on room air
PAF: - - patient with post op AFwith RVR overnight - denies symptoms.
- on IV cardizme with better rate control but has had low BPs on cardizem
- will change to IV amiodaroen to allow higher BP. Also may help with conversion of afib
- Not on anticoag in past due to anemai and rectal
- would not add anticaogulation yet with recetn surgery. apttitstill with drain. Can continue to assess safety of anticaogulation as she recovers
Aortic stenosis: critical
-Echo 07/16/23: Left ventricle is mildly dilated.Normal left ventricular systolic function. Mild concentric left ventricular hypertrophy. Indexed LA volume is severely abnormal (> 48 mL/m2). Moderate mitral regurgitation. Severe aortic stenosis. The
peak gradient across the valve is 126 mmHg with a mean of 76 mmHg. Color flow pattern suggestive of small PFO.
-monitor volume status and check CXR today
-plan for eventual timing based on recovery from surgery . will be decided as outpatietn after recovery.
Rectal cancer,
-patient had chemo/radiation
- recurrent rectal bleeding and symptomatic anemia requiring transfusions pre op
- - Now post op robotic LAR with DLI, ashlee drain in pelvis
- Hb stable post op - monitor.
PAF:
-RR regular to auscultation
-EKG/tele as above
-not on OAC due to bleeding/anemia
HFpEF: chronic
-monitor volume
Physical Exam
Vital Signs/Labs
Vital Signs
Temp Pulse Resp BP Pulse Ox
98.8 F 104 13 95/54 94
11/14/23 04:00 11/14/23 06:30 11/14/23 06:30 11/14/23 06:30 11/13/23 20:00
11/13/23 11/14/23 11/15/23
06:59 06:59 06:59
Actual Weight 68.8 kg 68.8 kg
11/14/23 02:26
11/14/23 02:27
Magnesium 1.9 mg/dl (1.6-2.3) 11/14/23 02:27
Physical Exam
Constitutional: No acute distress
Cardiovascular: Rhythm/rate is irregular and Systolic murmur present
Respiratory: Wheeze Absent, Rhonchi Absent and Other (few fine crackles)
GI: Soft and Other (post op with drain intact)
Neuro/Psych: Alert
Data Reviewed
-
Date of Service: November 14, 2023
Medical Decision Making: Reviewed Test Results
X-Ray/CT/US/MRI/NUC/PET: Report Reviewed by me
Medical Tests (PFT, Pathology etc): Report Reviewed by me
Labs: Labs Reviewed by me
[2023-11-14] MEDS: CORDARONE 103 MG IV (08:06)
[2023-11-14] MEDS: CORDARONE 518 MG IV (08:42)
--- NOTE | 2023-11-14 10:14 | W.PN.CRS1 ---
Today's Communication / Plan
-
continue clears until bowel function
amiodorone per cards
OOB
Assessment/Plan
-
78-year-old female with PMH of stage III rectal cancer s/p [place], severe (pending TAVR), HFpEF, paroxysmal A-fib who has been having persistent bleeding from her rectal cancer requiring multiple transfusions despite repeat flex sig with APC;
preadmitted for LAR today
POD#2 robotic LAR with DLI, ashlee drain in pelvis
WBC 8.0, Hb 12.9, platelets 136, UOP 1005mL
� Okay for downgrade to IMU with telemetry.
� Continue clears until bowel function returns.
� D/C armenta today.
� Pain control with Tylenol and Dilaudid as needed.
� Okay for DVT PPx with Lovenox.
� Trend CBC; per cardiology, maintain Hb greater than 10.0.
� Appreciate [facility] for ostomy education and supplies.
� OOB with PT.
� Appreciate cardiology. Cardizem gtt changing to amiodarone gtt for afib.
� Appreciate hospitalist.
- OR pathology pending.
Subjective Data
Subjective Data
Date of Service: November 14, 2023
Patient states she has no nausea or vomiting. She is not that hungry. Her pain is controlled. She has not heard flatus yet. She went into afib last night but feels fine.
Objective Data
-
Vital Signs
Temp Pulse Resp BP Pulse Ox
97.9 F 125 17 89/67 93
11/14/23 08:09 11/14/23 09:00 11/14/23 09:00 11/14/23 09:00 11/14/23 08:00
Intake & Output
11/13/23 11/14/23 11/15/23
06:59 06:59 06:59
Intake Total 900 / 1000 1410 / 1420 115 / 115
Output Total 1040 / 1040 2210 / 2210
Balance -140 / -40 -800 / -790 115 / 115
Intake:
Oral fluids 940 / 940
IV fluids (Total) 900 / 1000 470 / 480 115 / 115
Amiodarone 100 / 100
Normosol-R 1,000 ml @ 100 mls/ 800 / 900 400 / 400
hr IV .Q10H RONAK Rx#:[id number]
cardizem 70 / 80 15 / 15
Blood Product Amount Infused ( 0 / 0
mL)
Packed Rbc Leukoreduced Unit 0 / 0
[id number]
Output:
Liquid stool amount 50 / 50
Ileostomy 50 / 50
Drain Output (Total) 140 / 140 955 / 955
Right Lower Abdomen César- 140 / 140 955 / 955
Singh
Urine, Armenta 900 / 900 1205 / 1205
Other:
Number of approximated LARGE 1
amounts of urine
Lab Results
11/14/23 02:26
11/14/23 02:27
Physical Exam
-
General: No Acute Distress and AOx3
Abdomen: Soft, Non Distended, Non Tender and Other (antoni drain serosangionous)
Wound: Dressing in Place
Incision: Clear, Dry, Intact
--- NOTE | 2023-11-14 10:21 | VNURNOTE ---
Home health liaison spoke with patient to discuss [facility] services, visit scheduling/frequency. Patient states at this point she is not interested in having a nurse come to her home. Home health liaison explained VN would be assisting/teaching how to
care for her ostomy appliance. Patient understands home visits will be 1-2 times a week to assess and teach medical management. Patient states she is not going to be discharged until Saturday or Saturday and would like to think about it a few more days
and learn what she can while she is in the hospital. Home health liaison will follow-up.
--- NOTE | 2023-11-14 10:50 | W.PN.HOSP.TC ---
Today's Communication/Plan
-
Amio gtt
Post op care
Encourage IS
Assessment / Plan
Assessment / Plan
78-year-old female with history of rectal cancer and recurrent lower GI bleed was recently admitted here. Her hemoglobin was found to be 6.1 and dropped to 5.3 she got 4 units of blood prior to discharge on 11/06/2023. She was seen by oncology and
colorectal surgery. Patient was supposed to finish chemotherapy she has had 8 out of 9 planned treatments with FOLFOX regimen. She also had a mucosal ulceration in the mid rectum which was treated with APC. The plan was for patient to get
surgical resection on 11/25/2023. She was still continuing to have bleeding therefore was brought in to get surgery earlier. Denies any dizziness chest pain or shortness of breath. Patient also has aortic stenosis for which she is undergoing
evaluation to get TAVR.
Post op in ICU as she was somnolent yesterday. now AAO3. On the phone. Denies any chest pain or shortness of breath. went in rapid afib overnight
On examination awake alert oriented
Cardiovascular system S1-S2 appreciated, systolic murmur at aortic area
Chest few rales at bases.
Abdomen soft and nontender
No pedal edema noted
# Rectal cancer with bleeding
Transfused 2 units of blood before surgery
S/P Robotic left anterior resection with diverting loop ileostomy on 11/12/2023.
Hemoglobin is stable
Few rales at bases
Off IV fluids
Chest x-ray shows overload, but BP soft cant use Diuresis
# Paroxysmal atrial fibrillation-Now with rapid rates
Amiodarone started
not on anticoagulation as outpatient due to rectal bleeding
Hopefully now that surgery is done she may be able to be restarted on anticoagulation as outpatient at some point
# Pancytopenia-likely chemo related
#Rectal cancer diagnosed in February 2023 stage IIIb-mid rectal
underwent 8 out of 9 planned chemotherapy with FOLFOX
Had Finished Radiation Therapy in April [address] Faby Henderson
# Chronic heart failure with preserved ejection fraction
Echo 08/05/2023-LV mildly dilated, normal LV systolic function. Mild concentric LVH. Normal RV size and function. Moderate MR. Severe .
# Severe aortic stenosis--follows with Dr. Torres. Undergoing work up for TAVR-cardiology following
# Anemia related to malignancy and also acute blood loss secondary to rectal bleeding
# Depression-continue sertraline
# Osteoarthritis
# History of discoid lupus
# Hypoalbuminemia
# Infrarenal abdominal aortic aneurysm, measuring 3.5 cm
# Ex-smoker
# DVT Prophylaxis-Lovenox
# Full CODE
Discussed with nursing at bed side
Anticipated Discharge: > 48 hours
Subjective/Interval History
-
Date of Service: November 14, 2023
Objective Data
-
Labs:
Laboratory Results
11/14/23 11/14/23
02:26 02:27
WBC 8.0
Hgb 12.9
Hct 37.6
Plt Count 136 D
Sodium 134 L
Potassium 3.8
Chloride 109 H
Carbon Dioxide 25
BUN 11
Creatinine 0.7
Glucose 100 H
Calcium 8.8
Vital Signs:
Vital Signs
Temp Pulse Resp BP Pulse Ox
97.9 F 125 17 89/67 93
11/14/23 08:09 11/14/23 09:00 11/14/23 09:00 11/14/23 09:00 11/14/23 08:00
I&O
11/13/23 11/14/23 11/15/23
06:59 06:59 06:59
Intake Total 900 / 1000 1410 / 1420 115 / 115
Output Total 1040 / 1040 2210 / 2210
Balance -140 / -40 -800 / -790 115 / 115
--- NOTE | 2023-11-14 14:34 | CM ---
CM following re: discharge planning.
Discussed in Rounds, reviewed pt's chart, met with pt and two patient's sisters at bedside.
Pt is POD#2 s/p robotic LAR with DLI, Cruz drain in pelvis. per wound care, pt will need VN services for ostomy care.
[facility] liaison following.
Please fax discharge instructions to VN at [phone]
D/C plan: [facility] for [facility] care and family support. Family to transport at discharge.
CM will follow with discharge plan updates as hospitalization progresses
[2023-11-14] MEDS: ZOFRAN 4 MG IV ×2 (17:07→23:13)
[2023-11-14] MEDS: LOVENOX 40 MG SC (17:40)
--- NOTE | 2023-11-14 18:33 | PTCARENOTE ---
Patient received in AM with assessment as noted. Continues alert and oriented x3. C/O ABD partially relieved with PRN Dilaudid 0.5 mg IV. Went into a rapid A-fib last night and continues in a rapid A-fib with HR 120-140 at this time. B/P's stable.
Cardizem gtt d/c'd in AM as per orders and Amiodarone bolus and gtt administered as per orders. Afebrile. Lungs with bilateral fine crackles 1/4 up. I/S 1750 ml. Sao2 94% on room air. Hypo BS noted. Right side ileostomy with scant liquid red
drainage. No flatus noted. Right KAITLIN with 570 ml serosanguineous output today. Regan d/c'd at 1100 and patient voided at 1730. Patient sleeping t this time with call desai and telephone in reach.
[2023-11-14] MEDS: ZOLOFT 50 MG PO (20:17)
--- NOTE | 2023-11-14 21:53 | PTCARENOTE ---
Assumed care of pt at 1900. Pt is A/O x4, pleasant and cooperative with care. [place] b/l. Reports pain to abd, medicated with PRN Dilaudid, see EMAR. Pt also c/o nausea but states that the pain and nausea are '' and she can't tell what actually
bothering her more, discussed that her nausea medicine isn't due until around 2300 and she stated that she thinks pain medication will help her feel better at this time. Pt able to fall asleep after receiving Dilaudid. AFib on monitor, HR ranging
anywhere from 110s-high 140s but pt is asymptomatic, no chest pain, does not feel as if her heart is racing, and BP has been WNL. Currently on Amiodarone infusion at 0.5mg/min. Physical assessment completed, see nursing shift assessment flowsheet
for full details. Ileostomy to RUQ is putting out small amount of sanguinous drainage, stoma is red and budded. KAITLIN drain to RLQ with serosanguinous drainage, bulb needing to be emptied every 1-2 hours. Pt currently IMU level of care.
[2023-11-15] VITALS (19 sets, daily range): BP systolic 100–165; BP diastolic 65–132; BMI 26.7
[2023-11-15] MEDS: DILAUDID 0.5 MG IV ×5 (00:18→20:28)
[2023-11-15] MEDS: DILAUDID 0.25 MG IV ×2 (03:31→09:49)
[2023-11-15 05:14] LABS: Hematocrit 43.3 % (37.0-47.0); Hemoglobin 14.4 g/dL (12.0-16.0); Mean Corp Hgb Conc. 33.3 g/dL (33.0-37.0); Mean Corpuscular Hgb 30.2 pg (27.0-31.0); Mean Corpuscular Volume 90.8 fL (81.0-99.0); Mean Platelet Volume 9.4 fL (7.4-10.4); Platelet Count 142 10^3/uL (130-400); Red Blood Cell Count 4.77 10^6/uL (4.20-5.40); Red Cell Dist. Width 19.7 % (11.5-14.5); White Blood Cell Count 8.1 10^3/uL (4.8-10.8)
[2023-11-15 05:40] LABS: Blood Urea Nitrogen 15 mg/dl (7-17); Carbon Dioxide 24 mmol/L (22-30); Chloride 106 mmol/L (98-107); Estimated Creatinine Clearance 55 ml/min; Glucose 123 mg/dl (70-99); Potassium 4.6 mmol/L (3.5-5.1); Sodium 132 mmol/L (135-145); eGFR > 60.00
--- NOTE | 2023-11-15 05:49 | PTCARENOTE ---
Addendum entered by Suzy Wright RN 11/15/23 07:28:
Orders obtained for 500mL LR bolus, then D5LR at 100ml/hr; insert armenta catheter for I&Os, and to send KAITLIN fluid for fluid creatinine level. 16Fr thermister armenta inserted at around 0650. Bolus had finished shortly before this and IVF were
subsequently started.
Original Note:
Carmel text sent to on-call colorectal surgeon Dr. Austin at around 0545 re: KAITLIN drain output had been 870mL for the shift at that time; also pt's urine output only 100mL this shift, bladder scanned at around 0030 for 132mL and voided the 100mL a
couple hours after that, but nothing since. Pt with poor po intake this shift and nausea, requiring IV ondansetron, pt also not on any IVF. Dr. Austin stated he would enter orders.
[2023-11-15] MEDS: LR 500 IV (06:04)
[2023-11-15] MEDS: D5LR 1000 IV ×2 (06:05→20:50)
[2023-11-15] MEDS: CORDARONE 518 MG IV (06:05)
[2023-11-15 06:54] LABS: Body Fluid Creatinine 0.9 mg/dl
--- NOTE | 2023-11-15 08:32 | W.PN.CD ---
Today's Communication / Plan
-
IV metoprolol prn
consider heparin gtt if ok with surgery
continue to try and keep a bit negative in her I/o
I updated Dr Corrigan, Dr Tenorio and Ihsan PAGAN as to our HR control plan
Impression / Plan
-
Assessment/Plan: 78-year-old female (patient of Dr. Torres) with critical , rectal cancer (hx radiation, chemotherapy-FOLFOX), recurrent rectal bleeding, anemia requiring transfusions, PAF (not on OAC due to bleeding), and HFpEF who was recently
admitted with rectal bleeding and severe anemia (hgb 6.1) requiring transfusion, with colonoscopy with APC treatment. Dr. Knight evaluated during hospitalization and recommended transfusion for goal hgb 10 or higher, and after multidisciplinary
discussion, low anterior resection first and then TAVR after recovery. Surgery was planned for Saturday, but patient had rectal bleeding throughout the weekend and now surgery is planned for tomorrow with Dr. Tenorio (low anterior resection and
ileostomy).
s/p robotic LAR with DLI, ashlee drain in pelvis by Dr Tenorio 11/12/23
- stable post op
-monitor closely in patient with severe
PAF: - patient with post op AF with RVR overnight - denies symptoms.
- continue IV amiodarone to allow higher BP. Also may help with conversion of afib, still within 48 hour time frame of rhythm, so if able would start heparin gtt when ok with surgery. Hgb is stable.
-rates still quit fast will order IV metoprolol as needed for elevated rates with bp holding parameters
Aortic stenosis: critical
-Echo 07/16/23: Left ventricle is mildly dilated.Normal left ventricular systolic function. Mild concentric left ventricular hypertrophy. Indexed LA volume is severely abnormal (> 48 mL/m2). Moderate mitral regurgitation. Severe aortic stenosis. The
peak gradient across the valve is 126 mmHg with a mean of 76 mmHg. Color flow pattern suggestive of small PFO.
-wt is up but negative yesterday so will allow for autodiuresis as is no respiratory disease.
-plan for eventual timing based on recovery from surgery . will be decided as outpatientafter recovery.
Rectal cancer,
-patient had chemo/radiation
- recurrent rectal bleeding and symptomatic anemia requiring transfusions pre op
- - Now post op robotic LAR with DLI, ashlee drain in pelvis
- Hgb stable post op - monitor.
HFpEF: chronic
-monitor volume
-wt up, but bp soft and need to get heart rate undercontrol
-negative today, will allow autodiuresis, but may eventually need the assistence of a diuretic
Subjective:
she is burping a lot, no sob or chest pain
Physical Exam
Vital Signs/Labs
Vital Signs
Temp Pulse Resp BP Pulse Ox
97.4 F 129 14 115/81 98
11/15/23 07:21 11/15/23 07:30 11/15/23 07:30 11/15/23 07:00 11/15/23 07:30
11/14/23 11/15/23 11/16/23
06:59 06:59 06:59
Actual Weight 68.8 kg 68.3 kg
11/15/23 05:04
11/15/23 05:04
Magnesium 1.9 mg/dl (1.6-2.3) 11/14/23 02:27
Physical Exam
Constitutional: No acute distress
Cardiovascular: Pedal edema is absent, JVD pressure is normal, Rhythm/rate is irregular (and rapid) and Systolic murmur present
Respiratory: Respiratory effort normal, Wheeze Absent, Crackles Absent and Other (slightly decreased at the base)
GI: Soft
Neuro/Psych: AO x 3
Data Reviewed
-
Date of Service: November 15, 2023
EKG: Other (tele af with rvr)
--- NOTE | 2023-11-15 09:42 | WOUNDNOTE ---
[facility] RN Note: Patient's stoma pink about 1 1/4 inch budded. Stoma bridge intact. Peristomal skin intact. Instructed patient how to open and close pouch and changing appliance using Manda wafer #[id number] and Manda pouch # [id number]. Ostomy supplies
in room. Ileostomy teaching folder with [employer] secure starter kit fax form request. Patient declined signing fax form at this time. Patient was able to open and close pouch. She assisted with cutting wafer out. Next appliance change due Saturday.
She is interested in VN. SNF rehab not an option as per patient. Skin on heels and sacrum intact. She can turn self in bed.
[2023-11-15] MEDS: ZOFRAN 4 MG IV ×3 (09:49→23:17)
--- NOTE | 2023-11-15 09:51 | W.PN.HOSP.TC ---
Today's Communication/Plan
-
Cautious IV fluids as patient does look slightly volume overloaded.
Avoid hypotension
Heart rate control
Treat nausea
Watch closely
Assessment / Plan
Assessment / Plan
78-year-old female with history of rectal cancer and recurrent lower GI bleed was recently admitted here. Her hemoglobin was found to be 6.1 and dropped to 5.3 she got 4 units of blood prior to discharge on 11/06/2023. She was seen by oncology and
colorectal surgery. Patient was supposed to finish chemotherapy she has had 8 out of 9 planned treatments with FOLFOX regimen. She also had a mucosal ulceration in the mid rectum which was treated with APC. The plan was for patient to get
surgical resection on 11/25/2023. She was still continuing to have bleeding therefore was brought in to get surgery earlier. Denies any dizziness chest pain or shortness of breath. Patient also has aortic stenosis for which she is undergoing
evaluation to get TAVR.
Post op in ICU as she was somnolent yesterday. now AAO3. On the phone. Denies any chest pain or shortness of breath. went in rapid afib. Nauseous
On examination awake alert oriented
Cardiovascular system S1-S2 appreciated, systolic murmur at aortic area
Chest few rales at bases.
Abdomen soft and nontender, very sluggish bowel sounds
Trace pedal edema, Mild LUE edema
# Rectal cancer with bleeding
Transfused 2 units of blood before surgery
S/P Robotic left anterior resection with diverting loop ileostomy on 11/12/2023.
Mild blood-tinged fluid in the rectal pouch
Hemoglobin is stable
Few rales at bases
Chest x-ray shows overload, but BP soft cant use Diuresis
Back on IVF per surgery
# Paroxysmal atrial fibrillation-Now with rapid rates
Amiodarone started, as needed beta-blockers added
not on anticoagulation as outpatient due to rectal bleeding
Hopefully now that surgery is done she may be able to be restarted on anticoagulation at some point
# Pancytopenia-likely chemo related
#Rectal cancer diagnosed in February 2023 stage IIIb-mid rectal
underwent 8 out of 9 planned chemotherapy with FOLFOX
Had Finished Radiation Therapy in April [address] Faby Henderson
# Chronic heart failure with preserved ejection fraction
Echo 08/05/2023-LV mildly dilated, normal LV systolic function. Mild concentric LVH. Normal RV size and function. Moderate MR. Severe .
# Mild hyponatremia likely secondary to slight volume overload. Will restart Lasix when okay with surgeon
# Severe aortic stenosis--follows with Dr. Torres. Undergoing work up for TAVR-cardiology following
# Anemia related to malignancy and also acute blood loss secondary to rectal bleeding
# Depression-continue sertraline
# Osteoarthritis
# History of discoid lupus
# Hypoalbuminemia
# Infrarenal abdominal aortic aneurysm, measuring 3.5 cm
# Ex-smoker
# DVT Prophylaxis-Lovenox
# Full CODE
D/W Cards
D/W Surgery
Anticipated Discharge: > 48 hours
Subjective/Interval History
-
Date of Service: November 15, 2023
Objective Data
-
Labs:
Laboratory Results
11/15/23 11/15/23
05:04 09:40
WBC 8.1 Pending
Hgb 14.4 Pending
Hct 43.3 Pending
Plt Count 142 Pending
APTT Pending
Sodium 132 L
Potassium 4.6
Chloride 106
Carbon Dioxide 24
BUN 15
Creatinine 0.8
Glucose 123 H
Calcium 9.0
Vital Signs:
Vital Signs
Temp Pulse Resp BP Pulse Ox
97.4 F 129 14 115/81 98
11/15/23 07:21 11/15/23 07:30 11/15/23 07:30 11/15/23 07:00 11/15/23 07:30
I&O
11/14/23 11/15/23 11/16/23
06:59 06:59 06:59
Intake Total 1410 / 1420 1065.2 / 1181.9 350.1 / 350.1
Output Total 2210 / 2300 1931 / 193 370 / 370
Balance -800 / -880 -865.8 / -749.1 -19.9 / -19.9
[2023-11-15 10:01] LABS: Hematocrit 51.4 % (37.0-47.0); Hemoglobin 16.5 g/dL (12.0-16.0); Mean Corp Hgb Conc. 32.1 g/dL (33.0-37.0); Mean Corpuscular Hgb 30.1 pg (27.0-31.0); Mean Corpuscular Volume 93.8 fL (81.0-99.0); Mean Platelet Volume 9.5 fL (7.4-10.4); Platelet Count 170 10^3/uL (130-400); Red Blood Cell Count 5.48 10^6/uL (4.20-5.40); Red Cell Dist. Width 20.2 % (11.5-14.5); White Blood Cell Count 8.1 10^3/uL (4.8-10.8)
[2023-11-15 10:09] LABS: APTT 32.7 Sec (23.4-35.0)
--- NOTE | 2023-11-15 11:06 | W.PN.CRS1 ---
Today's Communication / Plan
-
okay for heparin gtt, no bolus
back down to npo with c/s
decrease ivfs to maintainance
Assessment/Plan
-
78-year-old female with PMH of stage III rectal cancer s/p ROOSEVELT, severe (pending TAVR), HFpEF, paroxysmal A-fib who has been having persistent bleeding from her rectal cancer requiring multiple transfusions despite repeat flex sig with APC
POD#3 robotic LAR with DLI, ashlee drain in pelvis
WBC 8.1, Hb 16.5, platelets 170, UOP 1841mL, drain output 1401ml
� Continue IMU tele.
� Back down to NPO with sips/chips.
� Continue armenta for I/O's.
� Pain control with Tylenol and Dilaudid as needed.
� Okay to start heparin gtt, no bolus.
� Trend CBC; per cardiology, maintain Hb greater than 10.0.
� Appreciate [facility] for ostomy education and supplies.
� OOB with PT.
� Appreciate cardiology. Amiodarone gtt for afib.
� Appreciate hospitalist.
- OR pathology pending.
- Back down IVFs to 50ml/hr, discussed with cardiology.
Subjective Data
Subjective Data
Date of Service: November 15, 2023
Patient states she is nauseous. She feels a little bloated. Her stoma has no function yet. Overnight her urine output was low and she received a bolus and a armenta was placed.
Objective Data
-
Vital Signs
Temp Pulse Resp BP Pulse Ox
99.2 F 129 14 115/81 98
11/15/23 11:05 11/15/23 07:30 11/15/23 07:30 11/15/23 07:00 11/15/23 07:30
Intake & Output
11/14/23 11/15/23 11/16/23
06:59 06:59 06:59
Intake Total 1410 / 1420 1065.2 / 1181.9 466.8 / 466.8
Output Total 2210 / 2300 1931 / 1931 430 / 430
Balance -800 / -880 -865.8 / -749.1 36.8 / 36.8
Intake:
Oral fluids 940 / 940 50 / 50
IV fluids (Total) 470 / 480 1015.2 / 1131.9 466.8 / 466.8
Amiodarone 500.2 / 516.9 66.8 / 66.8
D5lr 1,000 ml @ 50 mls/hr IV . 400 / 400
Q20H RONAK Rx#:[id number]
LR bolus 500 / 500
Normosol-R 1,000 ml @ 100 mls/ 400 / 400
hr IV .Q10H RONAK Rx#:[id number]
cardizem 70 / 80 15 / 15
Output:
Liquid stool amount 50 / 50 40 / 40
Ileostomy 50 / 50 40 / 40
Drain Output (Total) 955 / 1045 1491 / 1491 280 / 280
Right Lower Abdomen César- 955 / 1045 1491 / 1491 280 / 280
Singh
Urine, Armenta 1205 / 1205 150 / 150 150 / 150
Urine, Voided 250 / 250
Lab Results
11/15/23 09:40
11/15/23 05:04
Physical Exam
-
General: No Acute Distress and AOx3
Abdomen: Soft, Distended (mild) and Non Tender
Skin: Warm and Dry
Incision: Clear, Dry, Intact
--- NOTE | 2023-11-15 11:19 | CM ---
Patient seen at bedside. Patient with family member and no concerns verbalized at this time. CM will continue to follow for discharge planning needs.
Plan; home with VN per chart review; VN pending acceptance
[2023-11-15] MEDS: LOPRESSOR 2.5 MG IV (12:13)
[2023-11-15] MEDS: HEPARIN 25000 UNITS/250 ML IV (12:20)
[2023-11-15] MEDS: TIGAN 200 MG IM (12:30)
[2023-11-15] MEDS: ZOLOFT PO (17:25)
--- NOTE | 2023-11-15 17:51 | PTCARENOTE ---
Pt downgraded back to NPO d/t persistent nausea. Dealing w/ nausea and generalized abd pain throughout the day. Regan catheter in place w/ low output. Still in Afib w/ rate improved to 100-110s. RLQ abd KAITLIN drain w/ copious serosanguineous output
today.
[2023-11-15 18:39] LABS: APTT 66.9 Sec (23.4-35.0)
--- NOTE | 2023-11-15 20:00 | PTCARENOTE ---
Resumed care of pt laying in bed, AAOx3 [place]. HR in the 120's-130's in Afib on the monitor. POX 95% on 2 LO2 NC. Lungs dec @ bases. Hyper bowel. Round, tender abd. Rt lower abd KAITLIN drain draining serusanguenus drainage. Rt sided abd ileostomy in place
draining scant dark brown liquid drainage. 3 abd lap sites open to air. Regan cath in place draining kris colored urine. Weak pedal pulses present. Knee high seq in place. Heels elevated on pillows. Left SQ port in place infusing Amiodarone gtt
@0.5mg/hr. Left arm int infusing Hep gtt @900units/hr. Right AC int infusing D5LR @50ml/hr. Pt given pain medication as ordered. Pt with continuous nausea. No other complaints offered. Will continue to monitor.
[2023-11-16] VITALS (22 sets, daily range): BP systolic 91–146; BP diastolic 62–107; BMI 26.4
--- NOTE | 2023-11-16 00:15 | PTCARENOTE ---
HR sustaining in the 130's. PRN Lopressor administered as ordered. PT complaining of nausea and abd pain. PRN medications administered as ordered. Frequent drainage of right KAITLIN drain. No other changes in assessment noted at this time. Will continue
to monitor.
[2023-11-16] MEDS: LOPRESSOR 2.5 MG IV ×2 (00:26→11:48)
[2023-11-16] MEDS: DILAUDID 0.5 MG IV ×3 (00:28→14:42)
[2023-11-16 01:04] LABS: APTT 92.5 Sec (23.4-35.0)
[2023-11-16] MEDS: ZOFRAN 4 MG IV ×3 (05:17→20:51)
[2023-11-16 05:39] LABS: Hematocrit 44.7 % (37.0-47.0); Hemoglobin 14.8 g/dL (12.0-16.0); Mean Corp Hgb Conc. 33.1 g/dL (33.0-37.0); Mean Corpuscular Volume 93.5 fL (81.0-99.0); Platelet Count 167 10^3/uL (130-400); Red Blood Cell Count 4.78 10^6/uL (4.20-5.40); White Blood Cell Count 8.6 10^3/uL (4.8-10.8)
[2023-11-16 05:49] LABS: APTT 100.9 Sec (23.4-35.0)
[2023-11-16 06:04] LABS: Blood Urea Nitrogen 15 mg/dl (7-17); Calcium 8.9 mg/dl (8.4-10.2); Carbon Dioxide 25 mmol/L (22-30); Chloride 106 mmol/L (98-107); Estimated Creatinine Clearance 49 ml/min; Glucose 126 mg/dl (70-99); Potassium 4.2 mmol/L (3.5-5.1); Sodium 133 mmol/L (135-145); eGFR > 60.00
--- NOTE | 2023-11-16 09:58 | W.PN.CD ---
Today's Communication / Plan
-
continue IV heparin and amiodarone
Impression / Plan
-
Assessment/Plan: 78-year-old female (patient of Dr. Torres) with critical , rectal cancer (hx radiation, chemotherapy-FOLFOX), recurrent rectal bleeding, anemia requiring transfusions, PAF (not on OAC due to bleeding), and HFpEF who was recently
admitted with rectal bleeding and severe anemia (hgb 6.1) requiring transfusion, with colonoscopy with APC treatment. Dr. Knight evaluated during hospitalization and recommended transfusion for goal hgb 10 or higher, and after multidisciplinary
discussion, low anterior resection first and then TAVR after recovery. Surgery was planned for Saturday, but patient had rectal bleeding throughout the weekend and now surgery is planned for tomorrow with Dr. Tenorio (low anterior resection and
ileostomy).
s/p robotic LAR with DLI, ashlee drain in pelvis by Dr Tenorio 11/12/23
- stable post op
-monitor closely in patient with severe
Atrial fibrillation, new:
- patient with post op AFib with RVR
- continue IV amiodarone
- CHADS2-VASC = 3. Seems to be tolerating heparin drip
Aortic stenosis: critical
-Echo 07/16/23: Left ventricle is mildly dilated.Normal left ventricular systolic function. Mild concentric left ventricular hypertrophy. Indexed LA volume is severely abnormal (> 48 mL/m2). Moderate mitral regurgitation. Severe aortic stenosis. The
peak gradient across the valve is 126 mmHg with a mean of 76 mmHg. Color flow pattern suggestive of small PFO.
-plan for eventual TAVR timing based on recovery from surgery . will be decided as outpatient after recovery.
Rectal cancer,
-patient had chemo/radiation
- recurrent rectal bleeding and symptomatic anemia requiring transfusions pre op
- - Now post op robotic LAR with DLI, ashlee drain in pelvis
- Hgb stable post op - monitor.
HFpEF: chronic
-monitor volume: weight trending down
-will allow autodiuresis, but may eventually need a diuretic
Subjective:
NG tube placed. Nausea seems to be imroving.
CCT 35 minutes
Physical Exam
Vital Signs/Labs
Vital Signs
Temp Pulse Resp BP Pulse Ox
98.7 F 136 14 124/78 99
11/16/23 07:53 11/16/23 08:00 11/16/23 08:00 11/16/23 08:00 11/16/23 08:00
11/15/23 11/16/23 11/17/23
06:59 06:59 06:59
Actual Weight 68.3 kg 67.7 kg
11/16/23 05:24
11/16/23 05:24
APTT 100.9 Sec (23.4-35.0) H 11/16/23 05:24
Magnesium 1.9 mg/dl (1.6-2.3) 11/14/23 02:27
Physical Exam
Constitutional: No acute distress
EENT: Moist mucous membranes
Cardiovascular: Pedal edema is absent, JVD pressure is normal, Rhythm/rate is irregular and Systolic murmur present
Respiratory: Respiratory effort normal and Lungs clear to auscul.
GI: Distention present
Neuro/Psych: AO x 3
Data Reviewed
-
Date of Service: November 16, 2023
EKG: Other (Tele: A fib 110s)
Labs: Labs Reviewed by me
--- NOTE | 2023-11-16 10:47 | W.PN.HOSP.TC ---
Today's Communication/Plan
-
Continue amiodarone
Nausea and pain controlled
NG tube decompression
Heparin drip
Encourage incentive spirometry
Monitor closely
Await return of bowel function
Assessment / Plan
Assessment / Plan
78-year-old female with history of rectal cancer and recurrent lower GI bleed was recently admitted here. Her hemoglobin was found to be 6.1 and dropped to 5.3 she got 4 units of blood prior to discharge on 11/06/2023. She was seen by oncology and
colorectal surgery. Patient was supposed to finish chemotherapy she has had 8 out of 9 planned treatments with FOLFOX regimen. She also had a mucosal ulceration in the mid rectum which was treated with APC. The plan was for patient to get
surgical resection on 11/25/2023. She was still continuing to have bleeding therefore was brought in to get surgery earlier. Denies any dizziness chest pain or shortness of breath. Patient also has aortic stenosis for which she is undergoing
evaluation to get TAVR.
On examination awake alert oriented
Cardiovascular system S1-S2 appreciated,Irregular and tachy systolic murmur at aortic area
Chest decreased at bases
Abdomen soft and nontender, very sluggish bowel sounds, distended, KAITLIN with a lot of drainage
Trace pedal edema,
# Rectal cancer with bleeding
Transfused 2 units of blood before surgery
S/P Robotic left anterior resection with diverting loop ileostomy on 11/12/2023.
Increased drainage in KAITLIN therefore NG tube placed
Patient has nausea and pain-treat both
IV fluids and Regan catheter placed back
N.p.o. with ice chips and medicines only
# Paroxysmal atrial fibrillation-Now with rapid rates
Amiodarone started, as needed beta-blockers added
not on anticoagulation as outpatient due to rectal bleeding
Heparin gtt started
# Acute hypoxic respiratory insufficiency-likely secondary to atelectasis-continue oxygen encourage incentive spirometry
# Pancytopenia-likely chemo related
#Rectal cancer diagnosed in February 2023 stage IIIb-mid rectal
underwent 8 out of 9 planned chemotherapy with FOLFOX
Had Finished Radiation Therapy in April [address] Faby Henderson
# Chronic heart failure with preserved ejection fraction
Echo 08/05/2023-LV mildly dilated, normal LV systolic function. Mild concentric LVH. Normal RV size and function. Moderate MR. Severe .
Weight is not reliable in bed scale
With blood pressure running on the low side we cannot use Lasix now.
# Mild hyponatremia likely secondary to slight volume overload. Will restart Lasix when okay with surgeon
# Severe aortic stenosis--follows with Dr. Torres. Undergoing work up for TAVR-cardiology following
# Anemia related to malignancy and also acute blood loss secondary to rectal bleeding
# Depression-continue sertraline
# Osteoarthritis
# History of discoid lupus
# Hypoalbuminemia
# Infrarenal abdominal aortic aneurysm, measuring 3.5 cm
# Ex-smoker
# DVT Prophylaxis-Heparin gtt
# Full CODE
D/W Cards
Discussed with nursing at bedside
D/W Surgery
Anticipated Discharge: > 48 hours
Subjective/Interval History
-
Date of Service: November 16, 2023
Objective Data
-
Labs:
Laboratory Results
11/16/23 11/16/23
00:34 05:24
WBC 8.6
Hgb 14.8
Hct 44.7
Plt Count 167
APTT 92.5 H 100.9 H
Sodium 133 L
Potassium 4.2
Chloride 106
Carbon Dioxide 25
BUN 15
Creatinine 0.8
Glucose 126 H
Calcium 8.9
Vital Signs:
Vital Signs
Temp Pulse Resp BP Pulse Ox
98.7 F 136 14 124/78 99
11/16/23 07:53 11/16/23 08:00 11/16/23 08:00 11/16/23 08:00 11/16/23 08:00
I&O
11/15/23 11/16/23 11/17/23
06:59 06:59 06:59
Intake Total 1065.2 / 1181.9 1999.8 / 2075.5 227.1 / 227.1
Output Total 1930 1870 / 1869 250 / 250
Balance -865.8 / -749.1 129.8 / 205.5 -22.9 / -22.9
--- NOTE | 2023-11-16 11:32 | W.PN.CRS1 ---
Today's Communication / Plan
-
� Continue IMU tele.
� NGT discussed and ordered.
� Continue armenta for I/O's.
� Pain control with Tylenol and Dilaudid as needed.
� On heparin gtt (PTT 100.9).
� Trend CBC; per cardiology, maintain Hb greater than 10.0.
� Appreciate [facility] for ostomy education and supplies.
� OOB with PT when ok by cardiology.
� Appreciate cardiology. Amiodarone gtt for afib.
� Appreciate hospitalist.
- OR pathology pending.
- IVF as 50ml/hr, discussed with cardiology.
Assessment/Plan
-
78-year-old female with PMH of stage III rectal cancer s/p ROOSEVELT, severe (pending TAVR), HFpEF, paroxysmal A-fib who has been having persistent bleeding from her rectal cancer requiring multiple transfusions despite repeat flex sig with APC
POD#4 robotic LAR with DLI, ashlee drain in pelvis
WBC 8.6, Hb 14.8, platelets 167, UOP 550, drain output 1320ml
Subjective Data
Procedure
11/12/23 Robotic low anterior resection with diverting loop ileostomy for rectal cancer
Subjective Data
Date of Service: November 16, 2023
Still with some nausea, saleem while laying flat. She has not been out of bed due to a-fib. She is also having some generalized abdominal pain and no stoma output.
Objective Data
-
Vital Signs
Temp Pulse Resp BP Pulse Ox
98.7 F 136 14 124/78 99
11/16/23 07:53 11/16/23 08:00 11/16/23 08:00 11/16/23 08:00 11/16/23 08:00
Intake & Output
11/15/23 11/16/23 11/17/23
06:59 06:59 06:59
Intake Total 1065.2 / 1181.9 1999.8 / 2075.5 227.1 / 227.1
Output Total 1930 1870 / 1870 250 / 250
Balance -865.8 / -749.1 129.8 / 205.5 -22.9 / -22.9
Intake:
Oral fluids 50 / 50
IV fluids (Total) 1015.2 / 1131.9 227.1 / 227.1
Amiodarone 500.2 / 516.9 400.8 / 417.5 50.1 / 50.1
D5lr 1,000 ml @ 50 mls/hr IV . 1500 / 1550 150 / 150
Q20H RONAK Rx#:[id number]
Hep gtt 99 / 108
LR bolus 500 / 500
cardizem 15
Output:
Liquid stool amount 40 / 40
Ileostomy 40 / 40
Drain Output (Total) 1491 / 1491 1320 / 1320 150 / 150
Right Lower Abdomen César- 1491 / 1491 1320 / 1320 150 / 150
Singh
Urine, Armenta 150 / 150 550 / 550 100 / 100
Urine, Voided 250 / 250
Lab Results
11/16/23 05:24
11/16/23 05:24
Physical Exam
-
General: No Acute Distress
Abdomen: Soft, Distended, Non Tender and Other (stoma pink and viable; KAITLIN with ss output)
Extremities: No Calf Tenderness
Incision: Clear, Dry, Intact
[2023-11-16] MEDS: HEPARIN 25000 UNITS/250 ML IV (14:43)
[2023-11-16] MEDS: COMPAZINE 10 MG IV (16:47)
[2023-11-16] MEDS: D5LR 1000 IV (17:29)
[2023-11-16] MEDS: DILAUDID 1 MG IV ×2 (17:29→21:48)
[2023-11-16] MEDS: ZOLOFT 50 MG PO (17:38)
--- NOTE | 2023-11-16 18:30 | PTCARENOTE ---
Patient received in AM with assessment as noted. Continues alert and oriented with a flat affect. STEBBINS but communicates effectively. C/o of persistent ABD pain. aware and PRN Dilaudid dosing increased with slightly better pain control noted.
C/O persistent nausea and again aware and PRN Compazine added with some improvement noted. Left nares [place]-sump easily placed in AM and again in the afternoon after she pulled it out with good placement noted by auscultation. [place]-sump to
low continuous suction with 150 ml of brown-green output immediately in the morning and only a small amount later in the shift. A-fib with RVR on monitor. Afebrile. B/P's stable. PRN Lopressor 2.5 mg IV given with minimal reduction in HR. Lungs with
bilateral crackles 1/4 up. Sao2 96% on room air when awake and 88% when asleep. 2lnc used for sleeping with sao2 >95%. Bowel sounds noted with scant liquid brown output from ileostomy. Continues oliguric. Patient currently in bed sleeping with call
desai and telephone in reach.
[2023-11-17] VITALS (23 sets, daily range): BP systolic 90–142; BP diastolic 60–77; BMI 26.7
[2023-11-17] MEDS: DILAUDID 1 MG IV ×5 (02:08→21:59)
[2023-11-17 04:51] LABS: Hematocrit 38.6 % (37.0-47.0); Hemoglobin 12.8 g/dL (12.0-16.0); Mean Corp Hgb Conc. 33.2 g/dL (33.0-37.0); Mean Corpuscular Hgb 30.4 pg (27.0-31.0); Mean Corpuscular Volume 91.7 fL (81.0-99.0); Mean Platelet Volume 10.1 fL (7.4-10.4); Platelet Count 139 10^3/uL (130-400); Red Blood Cell Count 4.21 10^6/uL (4.20-5.40); Red Cell Dist. Width 18.6 % (11.5-14.5); White Blood Cell Count 6.2 10^3/uL (4.8-10.8)
[2023-11-17 05:04] LABS: APTT 78.1 Sec (23.4-35.0)
[2023-11-17 05:16] LABS: Blood Urea Nitrogen 14 mg/dl (7-17); Calcium 8.9 mg/dl (8.4-10.2); Carbon Dioxide 27 mmol/L (22-30); Chloride 107 mmol/L (98-107); Estimated Creatinine Clearance 49 ml/min; Glucose 112 mg/dl (70-99); Magnesium 1.7 mg/dl (1.6-2.3); Potassium 4.2 mmol/L (3.5-5.1); Sodium 135 mmol/L (135-145); eGFR > 60.00
--- NOTE | 2023-11-17 09:21 | W.PN.CRS1 ---
Today's Communication / Plan
-
� Continue IMU tele.
� Continue NGT until more robost ostomy output.
� Continue armenta for I/O's.
� Pain control with Tylenol and Dilaudid as needed.
� On heparin gtt (PTT 78.1).
� Appreciate [facility] for ostomy education and supplies.
� OOB with PT.
� Appreciate cardiology. Amiodarone gtt for afib.
� Appreciate hospitalist.
- OR pathology pending.
- IVF as per cardiology.
Assessment/Plan
-
78-year-old female with PMH of stage III rectal cancer s/p ROOSEVELT, severe (pending TAVR), HFpEF, paroxysmal A-fib who has been having persistent bleeding from her rectal cancer requiring multiple transfusions despite repeat flex sig with APC
POD#5 robotic LAR with DLI, ashlee drain in pelvis
WBC normal Hb 12.8, platelets 139, UOP 740, drain output 865ml, NGT 150. (negative 264 ml balance)
Subjective Data
Procedure
11/12/23 Robotic low anterior resection with diverting loop ileostomy for rectal cancer
Subjective Data
Date of Service: November 17, 2023
She still has generalized abdominal pain that she states has improved. Her nausea has improved after the NGT was placed. The ostomy is beginning to function.
Objective Data
-
Vital Signs
Temp Pulse Resp BP Pulse Ox
98.5 F 109 11 100/69 99
11/17/23 07:12 11/17/23 05:00 11/17/23 05:00 11/17/23 05:00 11/17/23 05:00
Intake & Output
11/16/23 11/17/23 11/18/23
06:59 06:59 06:59
Intake Total 1998.8 / 2074.5 1790.1 / 1790.1
Output Total 1869 / 18695
Balance 129.8 / 205.5 -263.9 / -263.9
Intake:
IV fluids (Total) 1998.2074. 179.1 / 1790.1
Amiodarone 400.8 / 417.5 384.1 / 384.1
D5lr 1,000 ml @ 50 mls/hr IV . 1500 / 1550 1200 / 1200
Q20H RONAK Rx#:[id number]
Hep gtt 99 / 108
Output:
Liquid stool amount 50 / 50
Ileostomy 50 / 50
Drain Output (Total) 1320 / 1320 1015 / 1015
Right Lower Abdomen César- 1320 / 1320 1015 / 1015
Singh
Gastrointestinal tube output ( 150 / 150
Total)
[place] Sump 150 / 150
Urine, Armenta 550 / 550 840 / 840
Lab Results
11/17/23 04:31
11/17/23 04:31
Physical Exam
-
General: No Acute Distress
Abdomen: Soft, Distended (mild), Non Tender and Other (the ileostomy is pink and there is some output; the KAITLIN output is serosanguineous)
Extremities: No Calf Tenderness
Incision: Clear, Dry, Intact
--- NOTE | 2023-11-17 09:40 | W.PN.HOSP.TC ---
Today's Communication/Plan
-
Await return of bowel function
Heart rate control amiodarone and heparin
Replace magnesium
Assessment / Plan
Assessment / Plan
78-year-old female with history of rectal cancer and recurrent lower GI bleed was recently admitted here. Her hemoglobin was found to be 6.1 and dropped to 5.3 she got 4 units of blood prior to discharge on 11/06/2023. She was seen by oncology and
colorectal surgery. Patient was supposed to finish chemotherapy she has had 8 out of 9 planned treatments with FOLFOX regimen. She also had a mucosal ulceration in the mid rectum which was treated with APC. The plan was for patient to get
surgical resection on 11/25/2023. She was still continuing to have bleeding therefore was brought in to get surgery earlier. Denies any dizziness chest pain or shortness of breath. Patient also has aortic stenosis for which she is undergoing
evaluation to get TAVR.
Cardiovascular system S1-S2 appreciated,Irregular and tachy systolic murmur at aortic area
Chest decreased at bases
Abdomen soft and nontender, very sluggish bowel sounds, distended, KAITLIN with a lot of drainage
Trace pedal edema,
# Rectal cancer with bleeding
Transfused 2 units of blood before surgery
S/P Robotic left anterior resection with diverting loop ileostomy on 11/12/2023.
Increased drainage in KAITLIN therefore NG tube placed
Patient has nausea and pain-treat both
IV fluids and Regan catheter placed back
N.p.o. with ice chips and medicines only
# Paroxysmal atrial fibrillation-Now with rapid rates
Amiodarone started, as needed beta-blockers added
Was not on anticoagulation as outpatient due to rectal bleeding-Heparin gtt started
# Acute hypoxic respiratory insufficiency-likely secondary to atelectasis-continue oxygen encourage incentive spirometry
#Rectal cancer diagnosed in February 2023 stage IIIb-mid rectal
underwent 8 out of 9 planned chemotherapy with FOLFOX
Had Finished Radiation Therapy in April [address] Faby Henderson
# Chronic heart failure with preserved ejection fraction
Echo 08/05/2023-LV mildly dilated, normal LV systolic function. Mild concentric LVH. Normal RV size and function. Moderate MR. Severe .
Weight is not reliable in bed scale
With blood pressure running on the low side we cannot use Lasix now.
# Severe aortic stenosis--follows with Dr. Torres. Undergoing work up for TAVR-cardiology following

# Mild hyponatremia likely secondary to slight volume overload. Resolved
# Anemia related to malignancy and also acute blood loss secondary to rectal bleeding
# Depression-continue sertraline
# Osteoarthritis
# History of discoid lupus
# Hypoalbuminemia
# Infrarenal abdominal aortic aneurysm, measuring 3.5 cm
# Ex-smoker
# DVT Prophylaxis-Heparin gtt
# Full CODE
D/W Cards
Discussed with nursing at bedside
Anticipated Discharge: > 48 hours
Subjective/Interval History
-
Date of Service: November 17, 2023
Objective Data
-
Labs:
Laboratory Results
11/17/23
04:31
WBC 6.2
Hgb 12.8
Hct 38.6
Plt Count 139
APTT 78.1 H
Sodium 135
Potassium 4.2
Chloride 107
Carbon Dioxide 27
BUN 14
Creatinine 0.8
Glucose 112 H
Calcium 8.9
Vital Signs:
Vital Signs
Temp Pulse Resp BP Pulse Ox
98.5 F 109 11 100/69 99
11/17/23 07:12 11/17/23 05:00 11/17/23 05:00 11/17/23 05:00 11/17/23 05:00
I&O
11/16/23 11/17/23 11/18/23
06:59 06:59 06:59
Intake Total 1998.2074.5 179.1 / 1790.1
Output Total 1869 / 1872054
Balance 129.8 / 205.5 -263.9 / -263.9
[2023-11-17] MEDS: MAGNESIUM SULFATE 102 GRAMS IV (10:09)
--- NOTE | 2023-11-17 11:04 | W.PN.CD ---
Today's Communication / Plan
-
continue IV amiodarone and heparin
Impression / Plan
-
Assessment/Plan: 78-year-old female (patient of Dr. Torres) with critical , rectal cancer (hx radiation, chemotherapy-FOLFOX), recurrent rectal bleeding, anemia requiring transfusions, PAF (not on OAC due to bleeding), and HFpEF who was recently
admitted with rectal bleeding and severe anemia (hgb 6.1) requiring transfusion, with colonoscopy with APC treatment. Dr. Knight evaluated during hospitalization and recommended transfusion for goal hgb 10 or higher, and after multidisciplinary
discussion, low anterior resection first and then TAVR after recovery. Surgery was planned for Saturday, but patient had rectal bleeding throughout the weekend and now surgery is planned for tomorrow with Dr. Tenorio (low anterior resection and
ileostomy).
s/p robotic LAR with DLI, ashlee drain in pelvis by Dr Tenorio 11/12/23
-monitor closely in patient with severe
Atrial fibrillation, new:
- patient with post op AFib with RVR
- continue IV amiodarone
- CHADS2-VASC = 3. Seems to be tolerating heparin drip
Aortic stenosis: critical
-Echo 07/16/23: Left ventricle is mildly dilated.Normal left ventricular systolic function. Mild concentric left ventricular hypertrophy. Indexed LA volume is severely abnormal (> 48 mL/m2). Moderate mitral regurgitation. Severe aortic stenosis. The
peak gradient across the valve is 126 mmHg with a mean of 76 mmHg. Color flow pattern suggestive of small PFO.
-plan for eventual TAVR timing based on recovery from surgery . will be decided as outpatient after recovery.
Rectal cancer,
-patient had chemo/radiation
- recurrent rectal bleeding and symptomatic anemia requiring transfusions pre op
- - Now post op robotic LAR with DLI, ashlee drain in pelvis
- Hgb stable post op - monitor.
HFpEF: chronic
-monitor volume: weight trending down
-will allow autodiuresis, but may eventually need a diuretic
Subjective:
NG tube in place since 11/15. Feels better
CCT 32 minutes
Physical Exam
Vital Signs/Labs
Vital Signs
Temp Pulse Resp BP Pulse Ox
98.5 F 109 13 106/63 99
11/17/23 07:12 11/17/23 09:00 11/17/23 09:00 11/17/23 09:00 11/17/23 09:00
11/16/23 11/17/23 11/18/23
06:59 06:59 06:59
Actual Weight 67.7 kg
11/17/23 04:31
11/17/23 04:31
APTT 78.1 Sec (23.4-35.0) H 11/17/23 04:31
Magnesium 1.7 mg/dl (1.6-2.3) 11/17/23 04:31
Physical Exam
Constitutional: No acute distress
EENT: Moist mucous membranes
Cardiovascular: Pedal edema is absent, JVD pressure is normal, Rhythm/rate is irregular and Systolic murmur present
Respiratory: Respiratory effort normal and Lungs clear to auscul.
GI: Abdomen is tender
Neuro/Psych: AO x 3
Data Reviewed
-
Date of Service: November 17, 2023
EKG: Other (Tele: A fib 110s)
Labs: Labs Reviewed by me
--- NOTE | 2023-11-17 13:08 | PTCARENOTE ---
Patient received in AM with assessment as noted. Continues alert and oriented with a flat but otherwise cooperative affect. [place] but communicates effectively. OOB to chair at 1145 and transfers with 1 person moderate assist. Continues in A-fib but
with HR 95-120 today vs 120-140's on 11/15. B/P's stable. Afebrile. Lungs with bilateral fine crackles 1/4 up and slightly coarse through out. Sao2 99% on 2lnc. Ileostomy with a small amount of flatus and scant brown liquid drainage noted. Right ABD
KAITLIN drain with serosanguineous drainage. Emelyn urine output via her Regan is increased compared to 11/15. Patient currently OOB to chair with call desai and telephone in reach.
[2023-11-17] MEDS: D5LR 1000 IV (14:13)
[2023-11-17] MEDS: ZOLOFT 50 MG PO (17:15)
[2023-11-17] MEDS: HEPARIN 25000 UNITS/250 ML IV (17:56)
--- NOTE | 2023-11-17 20:00 | PTCARENOTE ---
Rec'd pt resting in bed, cooperative, follows commands, pain level of 3 at present, afib, amiodarone gtt at 0.5, bp stable, weak distal pulses, skin warm/dry, o2 2 liters nc, lungs w/ crackles 1/4 up, sat 97, enc to C& DB, reaches 1000 on IS, hypo
bowel sounds, ileostomy w/ sm amt brown liquid stool, R KAITLIN w/ SES drainage, left nares [place] to suction, zofran 4mg iv given for nausea, no vomiting, armneta draining kris urine, hep gtt at 900 units/hr
[2023-11-17] MEDS: ZOFRAN 4 MG IV (20:11)
--- NOTE | 2023-11-17 22:00 | PTCARENOTE ---
dilaudid 1mg iv given for pain
[2023-11-18] VITALS (25 sets, daily range): BP systolic 85–129; BP diastolic 35–92; PULSE 105–122; O2SAT 96; BMI 26.4
--- NOTE | 2023-11-18 | PTCARENOTE ---
sys reviewed, changes noted, CHG bath done, linens changed
[2023-11-18] MEDS: CORDARONE 518 MG IV (00:05)
[2023-11-18 03:55] LABS: APTT 96.5 Sec (23.4-35.0)
--- NOTE | 2023-11-18 04:06 | PTCARENOTE ---
sys reviewed, changes noted
[2023-11-18 04:14] LABS: Blood Urea Nitrogen 13 mg/dl (7-17); Calcium 8.8 mg/dl (8.4-10.2); Carbon Dioxide 29 mmol/L (22-30); Chloride 106 mmol/L (98-107); Estimated Creatinine Clearance 62 ml/min; Glucose 102 mg/dl (70-99); Sodium 135 mmol/L (135-145); eGFR > 60.00
--- NOTE | 2023-11-18 06:25 | W.PN.HOSP.TC ---
Today's Communication/Plan
-
.
Assessment / Plan
Assessment / Plan
78-year-old female with history of rectal cancer and recurrent lower GI bleed was recently admitted here. Her hemoglobin was found to be 6.1 and dropped to 5.3 she got 4 units of blood prior to discharge on 11/06/2023. She was seen by oncology and
colorectal surgery. Patient was supposed to finish chemotherapy she has had 8 out of 9 planned treatments with FOLFOX regimen. She also had a mucosal ulceration in the mid rectum which was treated with APC. The plan was for patient to get
surgical resection on 11/25/2023. She was still continuing to have bleeding therefore was brought in to get surgery earlier. Denies any dizziness chest pain or shortness of breath. Patient also has aortic stenosis for which she is undergoing
evaluation to get TAVR.
Physical Exam
-
General: Other (No acute distress)
HEENT: Normocephalic and Anicteric. NG
Cardiovascular: S1/S2, Irregular Rhythm and Other (Systolic murmur present at the aortic area)
Respiratory: Other (Crackles present bilateral bases)
GI: Soft, not distended, Urine Regan in place). ostomy bag
Neurology: Awake, Alert and Oriented (Oriented to time, place, person)
Skin: Warm and Dry
Psych: no agitation
# Rectal cancer with bleeding, Acute blood loss anemia
S/P Robotic left anterior resection with diverting loop ileostomy on 11/12/2023. Transfused 2 units of blood before surgery
Increased drainage in KAITLIN therefore NG tube placed for expected post op ileus
Patient denies nausea
IV fluids and Regan catheter placed back
N.p.o. with ice chips and medicines only
# Paroxysmal atrial fibrillation-Now with rapid rates
Still in A fib
Amiodarone started, as needed beta-blockers added
Was not on anticoagulation as outpatient due to rectal bleeding-Heparin gtt started
# Hyponatremia, resolved.
# Acute hypoxic respiratory insufficiency-likely secondary to atelectasis-continue oxygen encourage incentive spirometry
#Rectal cancer diagnosed in February 2023 stage IIIb-mid rectal
underwent 8 out of 9 planned chemotherapy with FOLFOX
Had Finished Radiation Therapy in April [address] Faby Henderson
# Chronic heart failure with preserved ejection fraction
Echo 08/05/2023-LV mildly dilated, normal LV systolic function. Mild concentric LVH. Normal RV size and function. Moderate MR. Severe .
Weight is not reliable in bed scale
With blood pressure running on the low side we cannot use Lasix now.
# Severe aortic stenosis--follows with Dr. Torres. Undergoing work up for TAVR-cardiology following
# Mild hyponatremia likely secondary to slight volume overload. Resolved
# Anemia related to malignancy and also acute blood loss secondary to rectal bleeding
# Depression-continue sertraline
# Osteoarthritis
# History of discoid lupus
# Hypoalbuminemia
# Infrarenal abdominal aortic aneurysm, measuring 3.5 cm
# Ex-smoker
# DVT Prophylaxis-Heparin gtt
# Full CODE
Total time spent to see the patient, examine the patient on the floor, review data and lab results, discuss treatment plan with patient and nursing staff around 55 minutes
Anticipated Discharge: > 48 hours
Subjective/Interval History
-
Date of Service: November 18, 2023
No chest pain
No sob
No fevers
Less abd discomfort
Objective Data
-
Labs:
Laboratory Results
11/18/23
03:29
APTT 96.5 H
Sodium 135
Potassium 4.0
Chloride 106
Carbon Dioxide 29
BUN 13
Creatinine 0.7
Glucose 102 H
Calcium 8.8
Vital Signs:
Vital Signs
Temp Pulse Resp BP Pulse Ox
98 F 94 13 129/78 100
11/18/23 04:00 11/18/23 06:19 11/18/23 06:19 11/18/23 06:19 11/18/23 06:19
I&O
11/16/23 11/17/23 11/18/23
06:59 06:59 06:59
Intake Total 1998. / 2074.5 1791.1 / 1866.8 1998.8 / 1997.8
Output Total 1870 / 1870 205 / 2054 1590 / 1590
Balance 129.8 / 205.5 -263.9 / -188.2 408.8 / 408.8
--- NOTE | 2023-11-18 08:14 | W.PN.CD ---
Today's Communication / Plan
-
Remains in rate controlled atrial fibrillation. Remains on IV amiodarone. Patient currently with NG tube.
Continue IV heparin and monitor.
After NG tube is out if patient remains in A-fib then would consider TRACI cardioversion later this week
Impression / Plan
-
Assessment/Plan: 78-year-old female (patient of Dr. Torres) with critical , rectal cancer (hx radiation, chemotherapy-FOLFOX), recurrent rectal bleeding, anemia requiring transfusions, PAF (not on OAC due to bleeding), and HFpEF who was recently
admitted with rectal bleeding and severe anemia (hgb 6.1) requiring transfusion, with colonoscopy with APC treatment. Dr. Knight evaluated during hospitalization and recommended transfusion for goal hgb 10 or higher, and after multidisciplinary
discussion, low anterior resection first and then TAVR after recovery. Surgery was planned for Saturday, but patient had rectal bleeding throughout the weekend and now surgery is planned for tomorrow with Dr. Tenorio (low anterior resection and
ileostomy).
s/p robotic LAR with DLI, ashlee drain in pelvis by Dr Tenorio 11/12/23
-monitor closely in patient with severe
Atrial fibrillation, new:
- patient with post op AFib with RVR
- continue IV amiodarone. Remains on IV meds while unable to take p.o.
- CHADS2-VASC = 3. On IV heparin since 11/16/2023
- After NG tube is out if patient is still tolerating anticoagulation well and remains in A-fib then would consider TRACI cardioversion later this week
Aortic stenosis: critical
-Echo 07/16/23: Left ventricle is mildly dilated.Normal left ventricular systolic function. Mild concentric left ventricular hypertrophy. Indexed LA volume is severely abnormal (> 48 mL/m2). Moderate mitral regurgitation. Severe aortic stenosis. The
peak gradient across the valve is 126 mmHg with a mean of 76 mmHg. Color flow pattern suggestive of small PFO.
-plan for eventual TAVR timing based on recovery from surgery . will be decided as outpatient after recovery.
Rectal cancer,
-patient had chemo/radiation
- recurrent rectal bleeding and symptomatic anemia requiring transfusions pre op
- Hgb stable post op - monitor. On anticoagulation
HFpEF: chronic
-monitor volume: weight trending down
-will allow autodiuresis, but may eventually need a diuretic
Subjective:
NG tube in place since 11/15. Feels better
CCT 30 minutes
Physical Exam
Vital Signs/Labs
Vital Signs
Temp Pulse Resp BP Pulse Ox
98 F 94 13 129/78 100
11/18/23 04:00 11/18/23 06:19 11/18/23 06:19 11/18/23 06:19 11/18/23 06:19
11/17/23 11/18/23 11/19/23
06:59 06:59 06:59
Actual Weight 68.4 kg 67.5 kg
11/17/23 04:31
11/18/23 03:29
APTT 96.5 Sec (23.4-35.0) H 11/18/23 03:29
Magnesium 1.7 mg/dl (1.6-2.3) 11/17/23 04:31
Physical Exam
Constitutional: No acute distress
Cardiovascular: Rhythm/rate is irregular and Systolic murmur present
Respiratory: Respiratory effort normal
GI: Soft and Other (Postop)
Neuro/Psych: Alert
Data Reviewed
-
Date of Service: November 18, 2023
Medical Decision Making: Reviewed Test Results
Echo: Report Reviewed by me
Medical Tests (PFT, Pathology etc): Report Reviewed by me
Labs: Labs Reviewed by me
--- NOTE | 2023-11-18 09:05 | PTCARENOTE ---
Addendum entered by Neyda Leyva RN 11/18/23 09:23:
patient c/o pain and nusea. see sep. ngt returned to LIS. Surgical PAC updated by tiger text
Original Note:
report received, assessments per work list. patient denies pain at rest. mild discomfort with turning. relieved with repositioning. monitor afib. amiodarone infusing through port per orders. lungs with crackles 1/4 up bilaterally. using i/s with
encouragement. ileostomy bag with large amount liquid stool and flatus. Regan draining yellow urine. antoni draining large amount serous fluid. dressing wet with same, changed. ngt to LIS. scant drainage. patient denies nausea. ngt clamped per Dr Tenorio
instruction. call desai in reach
[2023-11-18] MEDS: DILAUDID 0.5 MG IV ×4 (09:13→21:56)
[2023-11-18] MEDS: D5LR 1000 IV (09:14)
[2023-11-18] MEDS: ZOFRAN 4 MG IV (09:20)
--- NOTE | 2023-11-18 09:37 | W.PN.CRS1 ---
Today's Communication / Plan
-
continue IMU
failed ngt clamp trial
oob with pt
Assessment/Plan
-
78-year-old female with PMH of stage III rectal cancer s/p ROOSEVELT, severe (pending TAVR), HFpEF, paroxysmal A-fib who has been having persistent bleeding from her rectal cancer requiring multiple transfusions despite repeat flex sig with APC
POD#6 robotic LAR with DLI, ashlee drain in pelvis
UOP 1520ml, drain output 640ml, NGT 120ml
� Continue IMU tele. Discussed wtih cards this AM who is in agreement.
� NGT clamped during rounds. NGT clamped for about an hour when I was notified by RN that patient nauseous, placed back on suction. Will ask nutrition to eval ?TPN in next few days if NGT not removed.
� Continue armenta for I/O's and retention.
� Pain control with Tylenol and Dilaudid as needed.
� On heparin gtt.
� Appreciate [facility] for ostomy education and supplies.
� OOB with PT.
� Appreciate cardiology. Amiodarone gtt for afib.
� Appreciate hospitalist.
- OR pathology pending.
- IVF as per cardiology.
Subjective Data
Procedure
11/12/23 Robotic low anterior resection with diverting loop ileostomy for rectal cancer
Subjective Data
Date of Service: November 18, 2023
Patient states she has 4/10 pain. She has air and stool in her bag per RN. She no longer has nausea.
Objective Data
-
Vital Signs
Temp Pulse Resp BP Pulse Ox
98.5 F 97 13 111/75 99
11/18/23 08:00 11/18/23 09:00 11/18/23 09:00 11/18/23 09:00 11/18/23 09:00
Intake & Output
11/17/23 11/18/23 11/19/23
06:59 06:59 06:59
Intake Total 1791.1 / 1866.8 1998.8 / 2074.5 257.1 / 257.1
Output Total 2054 1590 / 1590 660 / 660
Balance -263.9 / -188.2 408.8 / 484.5 -402.9 / -402.9
Intake:
IV fluids (Total) 1791.1 / 1866.8 1766.8 / 1842.5 227.1 / 227.1
Amiodarone 384.1 / 400.8 400.8 / 417.5 50.1 / 50.1
D5lr 1,000 ml @ 50 mls/hr IV . 1200 / 1250 1150 / 1200 150 / 150
Q20H RONAK Rx#:[id number]
Hep gtt 207 / 216 216 / 225 27 / 27
IV piggybacks 102 / 102
Amount instilled into GI Tube ( 130 / 130 30 / 30
Total)
[place] Sump 130 / 130 30 / 30
Output:
Liquid stool amount 50 / 50 100 / 100 300 / 300
Ileostomy 50 / 50 100 / 100 300 / 300
Drain Output (Total) 1015 / 1015 640 / 640 220 / 220
Right Lower Abdomen César- 1015 / 1015 640 / 640 220 / 220
Singh
Gastrointestinal tube output ( 150 / 150 120 / 120
Total)
[place] Sump 150 / 150 120 / 120
Urine, Armenta 840 / 840 730 / 730 140 / 140
Lab Results
11/17/23 04:31
11/18/23 03:29
Physical Exam
-
General: No Acute Distress and AOx3
Abdomen: Soft, Non Distended and Non Tender
Skin: Warm and Dry
Incision: Clear, Dry, Intact
--- NOTE | 2023-11-18 14:47 | PTCARENOTE ---
Addendum entered by Neyda Leyva RN 11/18/23 14:49:
remains in afib, rate to 160's with ambulation. heart rate 90-120 at rest
Original Note:
patient assisted to bed from chair with rolling walker. medicated with Dilaudid per prn order. assessments unchanged. antoni continues to have large amount serous output, ostomy draining watery brown yellow stool.
[2023-11-18] MEDS: ZOLOFT 50 MG PO (17:50)
[2023-11-18] MEDS: HEPARIN 25000 UNITS/250 ML IV (19:45)
--- NOTE | 2023-11-18 20:00 | PTCARENOTE ---
Rec'd pt resting in bed, denies pain,cooperative, [place], Afib, amiodarone gtt at 0.5; bp stable, weak distal pulses, skin warm/dry, RA, lungs w/ fine crackles 1/4 up, sat 95, enc to use IS- reaches 1500 ml, hypo bowel sounds, ileostomy w/ brown liquid
stool, left nares [place] to suction w/ scant drainage, R KAITLIN w/ serous drainage, armenta draining kris urine; hep gtt at 900 units/hr
--- NOTE | 2023-11-18 20:00 | PTCARENOTE ---
Rec'd pt resting in bed, denies pain,cooperative, [place], Afib, amiodarone gtt at 0.5; bp stable, weak distal pulses, skin warm/dry, RA, lungs w/ fine crackles 1/4 up, sat 95, enc to use IS- reaches 1500 ml, hypo bowel sounds, ileostomy w/ brown liquid
stool, left nares [place] to suction w/ scant drainage, R KAITLIN w/ serous drainage, anuric, left av fistula w/ bruit/thrill
--- NOTE | 2023-11-18 22:01 | PTCARENOTE ---
dilaudid 0.5 mg iv given for pain
--- NOTE | 2023-11-18 23:42 | PTCARENOTE ---
resting comf, no changes
[2023-11-19] VITALS (20 sets, daily range): BP systolic 88–130; BP diastolic 50–87; PULSE 101–151; O2SAT 96; BMI 26.0
[2023-11-19] MEDS: DILAUDID 0.5 MG IV ×3 (03:32→16:17)
--- NOTE | 2023-11-19 03:32 | PTCARENOTE ---
sys reviewed, dilauidid 0.5mgiv given for pain
[2023-11-19 03:35] LABS: Hematocrit 37.5 % (37.0-47.0); Hemoglobin 12.6 g/dL (12.0-16.0); Mean Corp Hgb Conc. 33.6 g/dL (33.0-37.0); Mean Corpuscular Hgb 30.6 pg (27.0-31.0); Mean Platelet Volume 10.4 fL (7.4-10.4); Platelet Count 135 10^3/uL (130-400); Red Blood Cell Count 4.12 10^6/uL (4.20-5.40); Red Cell Dist. Width 18.3 % (11.5-14.5); White Blood Cell Count 4.1 10^3/uL (4.8-10.8)
[2023-11-19 03:46] LABS: APTT 97.2 Sec (23.4-35.0)
[2023-11-19 04:08] LABS: Blood Urea Nitrogen 11 mg/dl (7-17); Calcium 8.8 mg/dl (8.4-10.2); Carbon Dioxide 27 mmol/L (22-30); Estimated Creatinine Clearance 49 ml/min; Glucose 97 mg/dl (70-99); Potassium 3.8 mmol/L (3.5-5.1); Sodium 135 mmol/L (135-145); eGFR > 60.00
[2023-11-19 04:13] LABS: Chloride 106 mmol/L (98-107)
[2023-11-19] MEDS: CORDARONE 518 MG IV (05:02)
[2023-11-19] MEDS: D5LR 1000 IV (05:50)
--- NOTE | 2023-11-19 06:33 | W.PN.HOSP.TC ---
Today's Communication/Plan
-
.
Assessment / Plan
Assessment / Plan
78-year-old female with history of rectal cancer and recurrent lower GI bleed was recently admitted here. Her hemoglobin was found to be 6.1 and dropped to 5.3 she got 4 units of blood prior to discharge on 11/06/2023. She was seen by oncology and
colorectal surgery. Patient was supposed to finish chemotherapy she has had 8 out of 9 planned treatments with FOLFOX regimen. She also had a mucosal ulceration in the mid rectum which was treated with APC. The plan was for patient to get
surgical resection on 11/25/2023. She was still continuing to have bleeding therefore was brought in to get surgery earlier. Denies any dizziness chest pain or shortness of breath. Patient also has aortic stenosis for which she is undergoing
evaluation to get TAVR.
Physical Exam
-
General: Other (No acute distress)
HEENT: Normocephalic and Anicteric. NG
Cardiovascular: S1/S2, Irregular Rhythm and Other (Systolic murmur present at the aortic area)
Respiratory: no wheezes or crackles.
GI: Soft, not distended, Urine Regan in place). ostomy bag
Neurology: Awake, Alert and Oriented (Oriented to time, place, person)
Skin: Warm and Dry
Psych: no agitation
# Rectal cancer with bleeding, Acute blood loss anemia
S/P Robotic left anterior resection with diverting loop ileostomy on 11/12/2023. Transfused 2 units of blood before surgery
Increased drainage in KAITLIN therefore NG tube placed for expected post op ileus
Patient denies nausea
IV fluids and Regan catheter placed back
N.p.o. with ice chips and medicines only
She failed clamping of NG 11/17, try another attempt today
# Paroxysmal atrial fibrillation-Now with rapid rates
Still in A fib
Amiodarone started, as needed beta-blockers added
Was not on anticoagulation as outpatient due to rectal bleeding-Heparin gtt started, monitor PTT
Eventual TRACI and cardioversion.
# Hyponatremia, resolved.
# Acute hypoxic respiratory insufficiency-likely secondary to atelectasis-continue oxygen encourage incentive spirometry
#Rectal cancer diagnosed in February 2023 stage IIIb-mid rectal
underwent 8 out of 9 planned chemotherapy with FOLFOX
Had Finished Radiation Therapy in April [address] Faby Henderson
# Chronic heart failure with preserved ejection fraction
Echo 08/05/2023-LV mildly dilated, normal LV systolic function. Mild concentric LVH. Normal RV size and function. Moderate MR. Severe .
Weight seems stable
With blood pressure running on the low side we cannot use Lasix now.
# Severe aortic stenosis--follows with Dr. Torres. Undergoing work up for TAVR-cardiology following
# Mild hyponatremia likely secondary to slight volume overload. Resolved
# Anemia related to malignancy and also acute blood loss secondary to rectal bleeding
# Depression-continue sertraline
# Osteoarthritis
# History of discoid lupus
# Hypoalbuminemia
# Infrarenal abdominal aortic aneurysm, measuring 3.5 cm
# Ex-smoker
# DVT Prophylaxis-Heparin gtt
# Full CODE
Total time spent to see the patient, examine the patient on the floor, review data and lab results, discuss treatment plan with patient and nursing staff around 57 minutes
Anticipated Discharge: > 48 hours
Subjective/Interval History
-
Date of Service: November 19, 2023
No chest pain
Not passing gas
No sob
Night team: no events over night, no fevers, on amiodarone gtt
Objective Data
-
Labs:
Laboratory Results
11/19/23
03:18
WBC 4.1 L
Hgb 12.6
Hct 37.5
Plt Count 135
APTT 97.2 H
Sodium 135
Potassium 3.8
Chloride 106
Carbon Dioxide 27
BUN 11
Creatinine 0.8
Glucose 97
Calcium 8.8
Vital Signs:
Vital Signs
Temp Pulse Resp BP Pulse Ox
98.6 F 96 14 96/67 91
11/19/23 04:03 11/19/23 06:00 11/19/23 06:00 11/19/23 06:00 11/19/23 05:00
I&O
11/17/23 11/18/23 11/19/23
06:59 06:59 06:59
Intake Total 1791.1 / 1866.8 1998.8 / 2074.5 1961.8 / 196.8
Output Total 2054 / 2054 1590 / 1590 2570 / 2570
Balance -263.9 / -188.2 408.8 / 484.5 -608.2 / -608.2
--- NOTE | 2023-11-19 08:02 | W.PN.CD ---
Today's Communication / Plan
-
continue iv amiodarone
continue iv heparin
eventual julian/dccv
Impression / Plan
-
Assessment/Plan: 78-year-old female (patient of Dr. Torres) with critical , rectal cancer (hx radiation, chemotherapy-FOLFOX), recurrent rectal bleeding, anemia requiring transfusions, PAF (not on OAC due to bleeding), and HFpEF who was recently
admitted with rectal bleeding and severe anemia (hgb 6.1) requiring transfusion, with colonoscopy with APC treatment. Dr. Knight evaluated during hospitalization and recommended transfusion for goal hgb 10 or higher, and after multidisciplinary
discussion, low anterior resection first and then TAVR after recovery. Surgery was planned for Saturday, but patient had rectal bleeding throughout the weekend and now surgery is planned for tomorrow with Dr. Tenorio (low anterior resection and
ileostomy).
s/p robotic LAR with DLI, ashlee drain in pelvis by Dr Tenorio 11/12/23
-monitor closely in patient with severe
Atrial fibrillation, new:
- patient with post op AFib with RVR
- continue IV amiodarone. Remains on IV meds while unable to take p.o.
- CHADS2-VASC = 3. On IV heparin since 11/16/2023
--once tolerating po, will consider julian/dccv
Aortic stenosis: critical
-Echo 07/16/23: Left ventricle is mildly dilated.Normal left ventricular systolic function. Mild concentric left ventricular hypertrophy. Indexed LA volume is severely abnormal (> 48 mL/m2). Moderate mitral regurgitation. Severe aortic stenosis. The
peak gradient across the valve is 126 mmHg with a mean of 76 mmHg. Color flow pattern suggestive of small PFO.
-plan for eventual TAVR timing based on recovery from surgery timing will be decided as outpatient after recovery.
Rectal cancer,
-patient had chemo/radiation
- recurrent rectal bleeding and symptomatic anemia requiring transfusions pre op
- Hgb stable post op - monitor. On anticoagulation
HFpEF: chronic
-monitor volume: weight trending down
-will allow autodiuresis, but may eventually need a diuretic
Subjective:
NG tube in place, she had some nausea after clamping yesterday, wants to try again today
CCT 30 minutes
Physical Exam
Vital Signs/Labs
Vital Signs
Temp Pulse Resp BP Pulse Ox
98.2 F 96 14 96/67 91
11/19/23 07:43 11/19/23 06:00 11/19/23 06:00 11/19/23 06:00 11/19/23 05:00
11/18/23 11/19/23 11/20/23
06:59 06:59 06:59
Actual Weight 67.5 kg 66.6 kg
11/19/23 03:18
11/19/23 03:18
APTT 97.2 Sec (23.4-35.0) H 11/19/23 03:18
Magnesium 1.7 mg/dl (1.6-2.3) 11/17/23 04:31
Physical Exam
Constitutional: No acute distress
Cardiovascular: Pedal edema is absent, JVD pressure is normal and Rhythm/rate is irregular
Respiratory: Respiratory effort normal, Lungs clear to auscul., Wheeze Absent, Crackles Absent and Rhonchi Absent
Neuro/Psych: AO x 3
Data Reviewed
-
Date of Service: November 19, 2023
--- NOTE | 2023-11-19 08:15 | PTCARENOTE ---
Rec'd pt resting in bed, Pain 2-3 in ABD, cooperative, CRAIG, Afib, amiodarone gtt at 0.5; bp stable, weak distal pulses, skin warm/dry, RA, lungs w/ fine crackles 1/4 up, sat 96, enc to use IS- reaches 1750 ml, hypo bowel sounds, ileostomy w/ brown
liquid stool, left nares [place] to suction w/ scant drainage, R KAITLIN w/ serous drainage, armenta draining dark yellow urine; hep gtt at 900 units/hr
--- NOTE | 2023-11-19 09:48 | W.PN.CRS1 ---
Today's Communication / Plan
-
abdominal xrays
nutrition consult
Assessment/Plan
-
78-year-old female with PMH of stage III rectal cancer s/p ROOSEVELT, severe (pending TAVR), HFpEF, paroxysmal A-fib who has been having persistent bleeding from her rectal cancer requiring multiple transfusions despite repeat flex sig with APC
POD#7 robotic LAR with DLI, ashlee drain in pelvis
UOP 1965ml, drain output 650ml, NGT 170ml
� Continue IMU tele. Will defer to cards when okay for stepdown.
� NGT currently clamped. Will order abdominal xrays this AM prior to another clamping trial.
� Continue armenta for I/O's and retention.
� Pain control with Tylenol and Dilaudid as needed.
� On heparin gtt.
� Appreciate [facility] for ostomy education and supplies.
� OOB with PT.
� Appreciate cardiology. Amiodarone gtt for afib.
� Appreciate hospitalist.
- OR pathology pending.
- IVF as per cardiology.
- Nutrition consult - will need TPN if NGT remains.
Subjective Data
Procedure
11/12/23 Robotic low anterior resection with diverting loop ileostomy for rectal cancer
Subjective Data
Date of Service: November 19, 2023
Patient states she has no nausea. She has somewhat of an appetite. Her pain is a 2-3/10. She has no other complaints.
Objective Data
-
Vital Signs
Temp Pulse Resp BP Pulse Ox
98.2 F 96 14 96/67 91
11/19/23 07:43 11/19/23 06:00 11/19/23 06:00 11/19/23 06:00 11/19/23 05:00
Intake & Output
11/18/23 11/19/23 11/20/23
06:59 06:59 06:59
Intake Total 2073.5 1960.8 / 2036.5 227.1 / 227.1
Output Total 1590 / 1590 2570 / 2570 55 / 55
Balance 408.8 / 484.5 -608.2 / -532.5 172.1 / 172.1
Intake:
IV fluids (Total) 1766.8 / 1842.5 1816.8 / 1892.5 227.1 / 227.1
Amiodarone 400.8 / 417.5 400.8 / 417.5 50.1 / 50.1
D5lr 1,000 ml @ 50 mls/hr IV . 1150 / 1200 1200 / 1250 150 / 150
Q20H RONAK Rx#:[id number]
Hep gtt 216 / 225 216 / 225 27 / 27
IV piggybacks 102 / 102
Amount instilled into GI Tube ( 130 / 130 145 / 145
Total)
[place] Sump 130 / 130 145 / 145
Output:
Liquid stool amount 100 / 100 900 / 900
Ileostomy 100 / 100 900 / 900
Drain Output (Total) 640 / 640 870 / 870
Right Lower Abdomen César- 640 / 640 870 / 870
Singh
Gastrointestinal tube output ( 120 / 120 170 / 170
Total)
[place] Sump 120 / 120 170 / 170
Urine, Armenta 730 / 730 630 / 630 55 / 55
Lab Results
11/19/23 03:18
11/19/23 03:18
Physical Exam
-
General: No Acute Distress and AOx3
Abdomen: Soft, Non Distended, Non Tender and Other (KAITLIN drain serous, ileostomy warm and pink with liquid output, no flatus noted)
Incision: Clear, Dry, Intact
[2023-11-19 12:53] LABS: Magnesium 1.6 mg/dl (1.6-2.3); Phosphorus 3.5 mg/dl (2.5-4.5); Triglycerides 128 mg/dl (10-149)
[2023-11-19 12:59] LABS: ALT (SGPT) < 10 U/L (0-35); AST (SGOT) 20 U/L (14-36); Albumin 1.9 g/dl (3.5-5.0); Alkaline Phosphatase 54 U/L (38-126); Total Bilirubin 0.4 mg/dl (0.2-1.3)
--- NOTE | 2023-11-19 15:30 | CM ---
CM following re: discharge planning.
Discussed in Rounds, reviewed pt's chart, met with pt.
Pt is POD#7 s/p robotic LAR with DLI, Cruz drain in pelvis. Per wound care, pt will need VN services for ostomy care.
VN liaison following.
from PT and OT standpoint, pt most likely will not need skilled PT/OT at discharge.
Please fax [facility] instructions to [facility] at [phone]
D/C plan: home with [facility] for ostomy care and family support. Family to transport at discharge.
CM will follow with discharge plan updates as hospitalization progresses
--- NOTE | 2023-11-19 16:12 | WOUNDNOTE ---
XIN RN NOTE: Appliance changed with patient assisting. Teaching done regarding skin care, emptying and changing appliance. Supplies at bedside. Patient reports she will be going to a rehab once discharged rather than go home. Encouraged continued
participation with changing appliance and when stronger emptying own pouch. Answered all questions and will follow as needed.
[2023-11-19] MEDS: ZOLOFT 50 MG PO (18:00)
[2023-11-19] MEDS: HEPARIN 25000 UNITS/250 ML IV (18:00)
[2023-11-19] MEDS: Parenteral Nutrition, Central 1360 IV (21:22)
[2023-11-19] MEDS: DILAUDID 1 MG IV (21:31)
[2023-11-19 23:58] LABS: Glucose - Point of Care 137 mg/dl (70-99)
[2023-11-20] VITALS (13 sets, daily range): BP systolic 100–146; BP diastolic 57–102; PULSE 116–162; BMI 26.6
[2023-11-20 05:00] LABS: Hematocrit 40.4 % (37.0-47.0); Hemoglobin 13.4 g/dL (12.0-16.0); Mean Corp Hgb Conc. 33.2 g/dL (33.0-37.0); Mean Corpuscular Hgb 30.9 pg (27.0-31.0); Mean Corpuscular Volume 93.1 fL (81.0-99.0); Mean Platelet Volume 10.2 fL (7.4-10.4); Platelet Count 141 10^3/uL (130-400); Red Blood Cell Count 4.34 10^6/uL (4.20-5.40); Red Cell Dist. Width 17.8 % (11.5-14.5); White Blood Cell Count 4.8 10^3/uL (4.8-10.8)
[2023-11-20] MEDS: DILAUDID 1 MG IV ×2 (05:11→20:10)
[2023-11-20 05:13] LABS: APTT 119.1 Sec (23.4-35.0)
[2023-11-20 05:32] LABS: Blood Urea Nitrogen 13 mg/dl (7-17); Carbon Dioxide 27 mmol/L (22-30); Chloride 107 mmol/L (98-107); Estimated Creatinine Clearance 56 ml/min; Glucose 121 mg/dl (70-99); Magnesium 1.7 mg/dl (1.6-2.3); Phosphorus 3.8 mg/dl (2.5-4.5); Potassium 3.6 mmol/L (3.5-5.1); Sodium 135 mmol/L (135-145); eGFR > 60.00
[2023-11-20 06:21] LABS: Glucose - Point of Care 112 mg/dl (70-99)
--- NOTE | 2023-11-20 06:25 | W.PN.HOSP.TC ---
Today's Communication/Plan
-
.
Assessment / Plan
Assessment / Plan
78-year-old female with history of rectal cancer and recurrent lower GI bleed was recently admitted here. Her hemoglobin was found to be 6.1 and dropped to 5.3 she got 4 units of blood prior to discharge on 11/06/2023. She was seen by oncology and
colorectal surgery. Patient was supposed to finish chemotherapy she has had 8 out of 9 planned treatments with FOLFOX regimen. She also had a mucosal ulceration in the mid rectum which was treated with APC. The plan was for patient to get
surgical resection on 11/25/2023. She was still continuing to have bleeding therefore was brought in to get surgery earlier. Denies any dizziness chest pain or shortness of breath. Patient also has aortic stenosis for which she is undergoing
evaluation to get TAVR.
Physical Exam
-
General: Other (No acute distress)
HEENT: Normocephalic and Anicteric. NG
Cardiovascular: S1/S2, Irregular Rhythm and Other (Systolic murmur present at the aortic area)
Respiratory: no wheezes or crackles.
GI: Soft, not distended, Urine Regan in place). ostomy bag
Neurology: Awake, Alert and Oriented (Oriented to time, place, person)
Skin: Warm and Dry
Psych: no agitation
# Rectal cancer with bleeding, Acute blood loss anemia
S/P Robotic left anterior resection with diverting loop ileostomy on 11/12/2023. Transfused 2 units of blood before surgery
Increased drainage in KAITLIN therefore NG tube placed for expected post op ileus
Patient denies nausea, some pain in abdomen and given Dilaudid
Drain out put around 800 cc.
IV fluids and Regan catheter placed back
N.p.o. with ice chips and medicines only
Trial to clamp
Started on TPN 11/18
# Paroxysmal atrial fibrillation-Now with rapid rates
Still in A fib
Amiodarone started, as needed beta-blockers added
Was not on anticoagulation as outpatient due to rectal bleeding-Heparin gtt started, monitor PTT
Eventual TRACI and cardioversion.
# Hyponatremia, resolved.
# Acute hypoxic respiratory insufficiency-likely secondary to atelectasis-continue oxygen encourage incentive spirometry
#Rectal cancer diagnosed in February 2023 stage IIIb-mid rectal
underwent 8 out of 9 planned chemotherapy with FOLFOX
Had Finished Radiation Therapy in April [address] Faby Henderson
# Chronic heart failure with preserved ejection fraction
Echo 08/05/2023-LV mildly dilated, normal LV systolic function. Mild concentric LVH. Normal RV size and function. Moderate MR. Severe .
Weight seems stable
With blood pressure running on the low side we cannot use Lasix now.
# Severe aortic stenosis--follows with Dr. Torres. Undergoing work up for TAVR-cardiology following
# Mild hyponatremia likely secondary to slight volume overload. Resolved
# Anemia related to malignancy and also acute blood loss secondary to rectal bleeding
# Depression-continue sertraline
# Osteoarthritis
# History of discoid lupus
# Hypoalbuminemia
# Infrarenal abdominal aortic aneurysm, measuring 3.5 cm
# Ex-smoker
# DVT Prophylaxis-Heparin gtt
# Full CODE
Total time spent to see the patient, examine the patient on the floor, review data and lab results, discuss treatment plan with patient and nursing staff around 55 minutes
Anticipated Discharge: > 48 hours
Subjective/Interval History
-
Date of Service: November 20, 2023
No chest pain
Abd pain, given Dilaudid
Objective Data
-
Labs:
Laboratory Results
11/20/23 11/20/23
04:51 11:30
WBC 4.8
Hgb 13.4
Hct 40.4
Plt Count 141
APTT 119.1 H Pending
Sodium 135
Potassium 3.6
Chloride 107
Carbon Dioxide 27
BUN 13
Creatinine 0.7
Glucose 121 H
Calcium 9.0
Vital Signs:
Vital Signs
Temp Pulse Resp BP Pulse Ox
98.4 F 93 14 110/70 94
11/20/23 03:47 11/20/23 06:00 11/20/23 06:00 11/20/23 06:00 11/20/23 05:00
I&O
11/18/23 11/19/23 11/20/23
06:59 06:59 06:59
Intake Total 1997.8 / 4.5 1961.8 / 7.5 1706.8 / 1706.8
Output Total 1590 / 1590 2570 / 2570 2400 / 2400
Balance 408.8 / 484.5 -608.2 / -532.5 -693.2 / -693.2
--- NOTE | 2023-11-20 06:42 | DOWNTIME ---
There was a [employer] Client Ins[employer] Worker Interior Surface Downtime on 11/19/2023 from 0100 to 11/20/2023 at 0300. Downtime documentation of patient's care, including medication administrations, has been reconciled in the electronic record per guidelines. Refer to the
patient's paper chart under the miscellaneous tab to see printed paper medication records and downtime forms.
--- NOTE | 2023-11-20 06:43 | PTCARENOTE ---
pt alert and oriented x3. c/o abdominal pain prn dilaudid given twice throughout the night. pt assists with turns. incontinent of urine. left nare marí[place] sump to low intermittent suction, clear/green output. a-fib on the monitor.
--- NOTE | 2023-11-20 08:21 | W.PN.CD ---
Today's Communication / Plan
-
post op ileus
NGT in place
monitor volume status with TPN
continue wit anticoagulation and IV amio
trasition to oral meds when able to take PO
if remains in afib will reconsider otpiton for getting her back in sinus after ileus resolves and NGT out.
Impression / Plan
-
Assessment/Plan: 78-year-old female (patient of Dr. Torres) with critical , rectal cancer (hx radiation, chemotherapy-FOLFOX), recurrent rectal bleeding, anemia requiring transfusions, PAF (not on OAC due to bleeding), and HFpEF who was recently
admitted with rectal bleeding and severe anemia (hgb 6.1) requiring transfusion, with colonoscopy with APC treatment. Dr. Knight evaluated during hospitalization and recommended transfusion for goal hgb 10 or higher, and after multidisciplinary
discussion, low anterior resection first and then TAVR after recovery. Surgery was planned for Saturday, but patient had rectal bleeding throughout the weekend and now surgery is planned for tomorrow with Dr. Tenorio (low anterior resection and
ileostomy).
s/p robotic LAR with DLI, ashlee drain in pelvis by Dr Tenorio 11/12/23
-monitor closely in patient with severe
- post op Ileus. still with NGT
Atrial fibrillation, new:
- patient with post op AFib with RVR
- continue IV amiodarone. Remains on IV meds while unable to take p.o.
- CHADS2-VASC = 3. On IV heparin since 11/16/2023
--once tolerating po, will consider julian/dccv
Aortic stenosis: critical
-Echo 07/16/23: Left ventricle is mildly dilated.Normal left ventricular systolic function. Mild concentric left ventricular hypertrophy. Indexed LA volume is severely abnormal (> 48 mL/m2). Moderate mitral regurgitation. Severe aortic stenosis. The
peak gradient across the valve is 126 mmHg with a mean of 76 mmHg. Color flow pattern suggestive of small PFO.
-plan for eventual TAVR timing based on recovery from surgery timing will be decided as outpatient after recovery.
Rectal cancer,
-patient had chemo/radiation
- recurrent rectal bleeding and symptomatic anemia requiring transfusions pre op
- Hgb stable post op - monitor. On anticoagulation
HFpEF: chronic
-monitor volume: weight trending down
-will allow autodiuresis, but may eventually need a diuretic
Subjective:
NG tube in place, she had some nausea after clamping yesterday, wants to try again today
CCT 30 minutes
Physical Exam
Vital Signs/Labs
Vital Signs
Temp Pulse Resp BP Pulse Ox
96.9 F L 93 14 110/70 94
11/20/23 07:30 11/20/23 06:00 11/20/23 06:00 11/20/23 06:00 11/20/23 05:00
11/19/23 11/20/23 11/21/23
06:59 06:59 06:59
Actual Weight 66.6 kg 68.1 kg
11/20/23 04:51
11/20/23 04:51
APTT 119.1 Sec (23.4-35.0) H 11/20/23 04:51
Magnesium 1.7 mg/dl (1.6-2.3) 11/20/23 04:51
Triglycerides Cancelled 11/19/23 12:12
Physical Exam
Constitutional: No acute distress
Cardiovascular: Rhythm & rate is regular and Systolic murmur present
Respiratory: Respiratory effort normal
GI: Other ( post op)
Neuro/Psych: Alert
Data Reviewed
-
Date of Service: November 20, 2023
Medical Decision Making: Reviewed Test Results
EKG: Report Reviewed by me
Echo: Ordered by me
X-Ray/CT/US/MRI/NUC/PET: Report Reviewed by me
Medical Tests (PFT, Pathology etc): Report Reviewed by me
--- NOTE | 2023-11-20 10:02 | W.PN.CRS1 ---
Today's Communication / Plan
-
NGT clamping trial
Assessment/Plan
-
78-year-old female with PMH of stage III rectal cancer s/p ROOSEVELT, severe (pending TAVR), HFpEF, paroxysmal A-fib who has been having persistent bleeding from her rectal cancer requiring multiple transfusions despite repeat flex sig with APC
POD#8 robotic LAR with DLI, ashlee drain in pelvis
UOP 2310ml, drain output 575ml, NGT
� Continue IMU tele. Will defer to cards when okay for stepdown.
� NGT clamping trial. If removed, can remain NPO with chips.
� D/C armenta.
� Pain control with Tylenol and Dilaudid as needed.
� On heparin gtt.
� Appreciate [facility] for ostomy education and supplies.
� OOB with PT.
� Plan on removing KAITLIN drain in the next day or two.
� Stoma osmar to remain in place until discharge.
- OR pathology pending.
- IVF as per cardiology.
Subjective Data
Procedure
11/12/23 Robotic low anterior resection with diverting loop ileostomy for rectal cancer
Subjective Data
Date of Service: November 20, 2023
Patient states she feels hungry. She denies nausea or vomiting. She was out of bed yesterday. She has no complaints.
Objective Data
-
Vital Signs
Temp Pulse Resp BP Pulse Ox
96.9 F L 88 17 100/67 97
11/20/23 07:30 11/20/23 09:00 11/20/23 09:00 11/20/23 08:00 11/20/23 09:05
Intake & Output
11/19/23 11/20/23 11/21/23
06:59 06:59 06:59
Intake Total 1961.8 / 2037.5 1706.8 / 1769.5 188.1 / 188.1
Output Total 2570 / 2570 2400 / 2400 250 / 250
Balance -608.2 / -532.5 -693.2 / -630.5 -61.9 / -61.9
Intake:
IV fluids (Total) 1816.8 / 1892.5 1706.8 / 1769.5 188.1 / 188.1
Amiodarone 400.8 / 417.5 400.8 / 417.5 50.1 / 50.1
D5lr 1,000 ml @ 50 mls/hr IV . 1200 / 1250 750 / 750
Q20H RONAK Rx#:[id number]
Hep gtt 216 / 225 214 / 222 24 /
TPN 342 / 380 114 / 114
Amount instilled into GI Tube ( 145 / 145
Total)
[place] Sump 145 / 145
Output:
Liquid stool amount 900 / 900 925 / 925
Ileostomy 900 / 900 925 / 925
Drain Output (Total) 870 / 870 835 / 835
Right Lower Abdomen César- 870 / 870 835 / 835
Singh
Gastrointestinal tube output ( 170 / 170
Total)
[place] Sump 170 / 170
Urine, Armenta 630 / 630 115 / 115
Urine, Voided 525 / 525 250 / 250
Other:
How many times incontinent 1
MODERATE amount urine
Lab Results
11/20/23 04:51
11/20/23 04:51
Physical Exam
-
General: No Acute Distress and AOx3
Abdomen: Soft and Non Distended
Skin: Warm and Dry
Incision: Clear, Dry, Intact
--- NOTE | 2023-11-20 10:46 | PTCARENOTE ---
Update with Surgery in am during rounds. NGT clamped at this assessment continue to evaluate and follow as ordered. Prep for pt/ot out of bed to chair. Continue updates with cardiology maintain IMU status pending follow up with gi. Continue to focus
on mobility programs. Continue to focus on positive improvement thru Icu/Imu stay. Continue with teaching and hourly rounds.
--- NOTE | 2023-11-20 11:20 | PTCARENOTE ---
PT/OT working with patient at this assessment. Continue follow up teaching and reinforce plan of cares. IV drips unchanged. Continue supportive cares and reinforcement. Follow up PTT as ordered and by protocol.
[2023-11-20 11:46] LABS: Glucose - Point of Care 105 mg/dl (70-99)
[2023-11-20 11:52] LABS: APTT 73.3 Sec (23.4-35.0)
[2023-11-20] MEDS: DILAUDID 0.5 MG IV ×2 (12:16→16:04)
--- NOTE | 2023-11-20 13:21 | CM ---
Patient seen at bedside. Patient remains in ICU. current with drain. Patient will need Ostomy education/supplies and follow up with VN. Please fax discharge instructions to [facility] at [phone]
D/C plan: home with VN for ostomy care and family support. Family to transport at discharge.
[2023-11-20] MEDS: CORDARONE 518 MG IV (14:10)
--- NOTE | 2023-11-20 15:00 | PTCARENOTE ---
Assumed care of patient from 3-7. patient sitting in chair at bedside, assessment unchanged from prior as charted in worklist. will review orders. call desai within reach.
[2023-11-20] MEDS: ZOLOFT 50 MG PO (17:33)
[2023-11-20 17:46] LABS: Glucose - Point of Care 109 mg/dl (70-99)
[2023-11-20 18:28] LABS: APTT 63.6 Sec (23.4-35.0)
[2023-11-20] MEDS: Parenteral Nutrition, Central 1360 IV (20:49)
[2023-11-21] VITALS (15 sets, daily range): BP systolic 99–158; BP diastolic 58–113; PULSE 91–162; BMI 25.4
[2023-11-21] MEDS: HEPARIN 25000 UNITS/250 ML IV (00:26)
[2023-11-21 00:27] LABS: Glucose - Point of Care 126 mg/dl (70-99)
[2023-11-21 02:18] LABS: Hematocrit 39.9 % (37.0-47.0); Hemoglobin 13.5 g/dL (12.0-16.0); Mean Corp Hgb Conc. 33.8 g/dL (33.0-37.0); Mean Corpuscular Hgb 30.5 pg (27.0-31.0); Mean Corpuscular Volume 90.3 fL (81.0-99.0); Platelet Count 142 10^3/uL (130-400); Red Blood Cell Count 4.42 10^6/uL (4.20-5.40); Red Cell Dist. Width 17.8 % (11.5-14.5); White Blood Cell Count 6.1 10^3/uL (4.8-10.8)
[2023-11-21 02:49] LABS: APTT 112.6 Sec (23.4-35.0)
[2023-11-21 03:07] LABS: Blood Urea Nitrogen 23 mg/dl (7-17); Carbon Dioxide 24 mmol/L (22-30); Chloride 106 mmol/L (98-107); Estimated Creatinine Clearance 56 ml/min; Glucose 282 mg/dl (70-99); Magnesium 1.8 mg/dl (1.6-2.3); Phosphorus 4.1 mg/dl (2.5-4.5); Potassium 4.5 mmol/L (3.5-5.1); Sodium 135 mmol/L (135-145); eGFR > 60.00
[2023-11-21] MEDS: DILAUDID 0.5 MG IV ×3 (04:37→15:40)
[2023-11-21 06:11] LABS: Glucose - Point of Care 148 mg/dl (70-99)
--- NOTE | 2023-11-21 06:30 | W.PN.HOSP.TC ---
Today's Communication/Plan
-
.
Assessment / Plan
Assessment / Plan
78-year-old female with history of rectal cancer and recurrent lower GI bleed was recently admitted here. Her hemoglobin was found to be 6.1 and dropped to 5.3 she got 4 units of blood prior to discharge on 11/06/2023. She was seen by oncology and
colorectal surgery. Patient was supposed to finish chemotherapy she has had 8 out of 9 planned treatments with FOLFOX regimen. She also had a mucosal ulceration in the mid rectum which was treated with APC. The plan was for patient to get
surgical resection on 11/25/2023. She was still continuing to have bleeding therefore was brought in to get surgery earlier. Denies any dizziness chest pain or shortness of breath. Patient also has aortic stenosis for which she is undergoing
evaluation to get TAVR.
Physical Exam
-
General: Other (No acute distress)
HEENT: Normocephalic and Anicteric. NG
Cardiovascular: S1/S2, Irregular Rhythm and Other (Systolic murmur present at the aortic area)
Respiratory: no wheezes or crackles.
GI: Soft, not distended, Urine Regan in place). ostomy bag
Neurology: Awake, Alert and Oriented (Oriented to time, place, person)
Skin: Warm and Dry
Psych: no agitation
# Rectal cancer with bleeding, Acute blood loss anemia
S/P Robotic left anterior resection with diverting loop ileostomy on 11/12/2023. Transfused 2 units of blood before surgery
Increased drainage in KAITLIN therefore NG tube placed for expected post op ileus
Patient denies nausea, some pain in abdomen and given Dilaudid
Drain out put around 600 cc.
IV fluids and Regan catheter placed back
ce chips and medicines only
NG removed 11/19
Started on TPN 11/18
# Paroxysmal atrial fibrillation-Now with rapid rates
Still in A fib
Amiodarone started, as needed beta-blockers added
Was not on anticoagulation as outpatient due to rectal bleeding-Heparin gtt started, monitor PTT
Eventual TRACI and cardioversion.
# Hyponatremia, resolved.
# Acute hypoxic respiratory insufficiency-likely secondary to atelectasis-continue oxygen encourage incentive spirometry
#Rectal cancer diagnosed in February 2023 stage IIIb-mid rectal
underwent 8 out of 9 planned chemotherapy with FOLFOX
Had Finished Radiation Therapy in April [address] Faby Henderson
# Chronic heart failure with preserved ejection fraction
Echo 08/05/2023-LV mildly dilated, normal LV systolic function. Mild concentric LVH. Normal RV size and function. Moderate MR. Severe .
Weight seems stable
With blood pressure running on the low side we cannot use Lasix now.
# Severe aortic stenosis--follows with Dr. Torres. Undergoing work up for TAVR-cardiology following
# Mild hyponatremia likely secondary to slight volume overload. Resolved
# Anemia related to malignancy and also acute blood loss secondary to rectal bleeding
# Depression-continue sertraline
# Osteoarthritis
# History of discoid lupus
# Hypoalbuminemia
# Infrarenal abdominal aortic aneurysm, measuring 3.5 cm
# Ex-smoker
# DVT Prophylaxis-Heparin gtt
# Full CODE
Total time spent to see the patient, examine the patient on the floor, review data and lab results, discuss treatment plan with patient and nursing staff around 45 minutes
Anticipated Discharge: > 48 hours
Subjective/Interval History
-
Date of Service: November 21, 2023
NG is off
Still asking for pain medicine
Good BS, tolerated ice chips
Objective Data
-
Labs:
Laboratory Results
11/21/23 11/21/23
02:11 10:30
WBC 6.1
Hgb 13.5
Hct 39.9
Plt Count 142
APTT 112.6 H Pending
Sodium 135
Potassium 4.5
Chloride 106
Carbon Dioxide 24
BUN 23 H
Creatinine 0.7
Glucose 282 H
Calcium 9.0
Vital Signs:
Vital Signs
Temp Pulse Resp BP Pulse Ox
97.6 F 104 18 130/84 96
11/21/23 03:39 11/21/23 06:00 11/21/23 06:00 11/21/23 06:00 11/20/23 19:46
I&O
11/19/23 11/20/23 11/21/23
06:59 06:59 06:59
Intake Total 1.8 / 7.5 1706.8 / 1769.5 1672.1 / 1672.1
Output Total 2570 / 2570 2400 / 2400 1959 / 1959
Balance -608.2 / -532.5 -693.2 / -630.5 -287.9 / -287.9
--- NOTE | 2023-11-21 06:48 | PTCARENOTE ---
pt given pain medication x2 this shift. resting on and off throughout the night. tolerating TPN.
--- NOTE | 2023-11-21 07:23 | W.PN.CD ---
Addendum entered and electronically signed by Joao Torres MD 11/21/23 10:29:
stop IV amiodarone and change to PO
Original Note:
Today's Communication / Plan
-
NG tube out
Advancing diet and decisions regarding oral meds aas per colorectal surgery
When able to toake PO would transiton to oral amiodarone and trasntion from IV Heparin to Eliquis when OK with colorectal surgery
Remains in rate controlled afib. Still assessing timing of JULIAN/CV based on GI/post op issues. Note :patient is at high risk for procedures with severe/critical . This will need to be reviewed with anesthesia.
Impression / Plan
-
Assessment/Plan: 78-year-old female (patient of Dr. Torres) with critical , rectal cancer (hx radiation, chemotherapy-FOLFOX), recurrent rectal bleeding, anemia requiring transfusions, PAF (not on OAC due to bleeding), and HFpEF who was recently
admitted with rectal bleeding and severe anemia (hgb 6.1) requiring transfusion, with colonoscopy with APC treatment. Dr. Knight evaluated during hospitalization and recommended transfusion for goal hgb 10 or higher, and after multidisciplinary
discussion, low anterior resection first and then TAVR after recovery. Surgery was planned for Saturday, but patient had rectal bleeding throughout the weekend and now surgery is planned for tomorrow with Dr. Tenorio (low anterior resection and
ileostomy).
s/p robotic LAR with DLI, ashlee drain in pelvis by Dr Tenorio 11/12/23
-monitor closely in patient with severe
- post op Ileus. NGT removed 11/20/23
Atrial fibrillation, :
- patient with post op AFib with RVR
- continue IV amiodarone. Remains on IV meds while unable to take p.o.
- CHADS2-VASC = 3. On IV heparin since 11/16/2023
--once tolerating po, will consider julian/dccv
Aortic stenosis: critical
-Echo 07/16/23: Left ventricle is mildly dilated.Normal left ventricular systolic function. Mild concentric left ventricular hypertrophy. Indexed LA volume is severely abnormal (> 48 mL/m2). Moderate mitral regurgitation. Severe aortic stenosis. The
peak gradient across the valve is 126 mmHg with a mean of 76 mmHg. Color flow pattern suggestive of small PFO.
-plan for eventual TAVR timing based on recovery from surgery timing will be decided as outpatient after recovery.
Rectal cancer,
-patient had chemo/radiation
- recurrent rectal bleeding and symptomatic anemia requiring transfusions pre op
- Hgb stable post op - monitor. On anticoagulation
HFpEF: chronic
-monitor volume: weight trending down
-will allow autodiuresis, but may eventually need a diuretic
Subjective:
NG tubeout. getting ice chips. no cp or sob
Physical Exam
Vital Signs/Labs
Vital Signs
Temp Pulse Resp BP Pulse Ox
97.6 F 104 18 130/84 96
11/21/23 03:39 11/21/23 06:00 11/21/23 06:00 11/21/23 06:00 11/20/23 19:46
11/20/23 11/21/23 11/22/23
06:59 06:59 06:59
Actual Weight 68.1 kg 65 kg
11/21/23 02:11
11/21/23 02:11
APTT 112.6 Sec (23.4-35.0) H 11/21/23 02:11
Magnesium 1.8 mg/dl (1.6-2.3) 11/21/23 02:11
Triglycerides Cancelled 11/19/23 12:12
Data Reviewed
-
Date of Service: November 21, 2023
--- NOTE | 2023-11-21 10:44 | W.PN.CRS1 ---
Today's Communication / Plan
-
clears, continue tpn
Assessment/Plan
-
78-year-old female with PMH of stage III rectal cancer s/p ROOSEVELT, severe (pending TAVR), HFpEF, paroxysmal A-fib who has been having persistent bleeding from her rectal cancer requiring multiple transfusions despite repeat flex sig with APC
POD#9 robotic LAR with DLI, ashlee drain in pelvis
UOP 1960ml, drain output 610ml, NGT removed yesterday
� Will defer to cards when okay for stepdown. Okay for med surg from our perspective.
� Advance diet to clears. Continue TPN until tolerating solid foods.
� Pain control with Tylenol and Dilaudid as needed.
� On heparin gtt.
� Appreciate [facility] for ostomy education and supplies.
� OOB with PT.
� Plan on removing KAITLIN drain later today.
� Stoma osmar to remain in place until discharge.
- OR pathology pending.
- IVF as per cardiology.
Subjective Data
Procedure
11/12/23 Robotic low anterior resection with diverting loop ileostomy for rectal cancer
Subjective Data
Date of Service: November 21, 2023
Patient states she has no nausea or vomiting. She is thirsty. She has no bloating. Her pain is controlled. She has been out of bed. She has no complaints.
Objective Data
-
Vital Signs
Temp Pulse Resp BP Pulse Ox
98.5 F 105 16 139/81 96
11/21/23 07:51 11/21/23 09:00 11/21/23 09:00 11/21/23 08:00 11/21/23 08:27
Intake & Output
11/20/23 11/21/23 11/22/23
06:59 06:59 06:59
Intake Total 1706.8 / 1769.5 1672.1 / 1754.8 250.1 / 250.1
Output Total 2400 / 2400 1960 / 1959
Balance -693.2 / -630.5 -287.9 / -205.2 250.1 / 250.1
Intake:
IV fluids (Total) 1706.8 / 1769.5 1672.1 / 1754.8 250.1 / 250.1
Amiodarone 400.8 / 417.5 384.1 / 400.8 50.1 / 50.1
D5lr 1,000 ml @ 50 mls/hr IV . 750 / 750
Q20H RONAK Rx#:[id number]
Hep gtt 214 / 222 205 / 214 /
TPN 342 / 380 1083 / 1140 173 / 173
Output:
Liquid stool amount 925 / 925 850 / 850
Ileostomy 925 / 925 850 / 850
Drain Output (Total) 835 / 835 610 / 610
Right Lower Abdomen César- 835 / 835 610 / 610
Singh
Urine, Regan 115 / 115
Urine, Voided 525 / 525 500 / 500
Other:
How many times incontinent 1
MODERATE amount urine
Lab Results
11/21/23 02:11
11/21/23 02:11
Physical Exam
-
General: No Acute Distress and AOx3
Abdomen: Soft, Non Distended and Tender (over left sided port incision- mild)
Skin: Warm and Dry
Incision: Clear, Dry, Intact
[2023-11-21] MEDS: PACERONE 400 MG PO ×2 (11:17→19:53)
[2023-11-21 11:56] LABS: APTT 36.2 Sec (23.4-35.0)
--- NOTE | 2023-11-21 12:00 | PTCARENOTE ---
Resent PTT as there was as significant drop from prior level.
[2023-11-21 12:03] LABS: Glucose - Point of Care 110 mg/dl (70-99)
--- NOTE | 2023-11-21 13:00 | WOUNDNOTE ---
WO RN note: Patient sitting in chair with air chair cushion. Stoma pink with liquid clear drainage with some mucus. Stoma pink with stoma bridge in place. Peristomal skin intact. Reinstructed patient how to empty and change pouch using Manda
wafer # [id number] and Manda pouch # [id number]. Ostomy supplies in room. Filled out [employer] ostomy secure starter kit fax form and placed in teaching folder. Instructed patient to date and sign fax and give to nurse if she wants the starter kit request
faxed to [employer]. Next appliance change due Saturday or Saturday.
--- NOTE | 2023-11-21 13:03 | CM ---
CM following re: discharge planning.
Discussed in Rounds, reviewed pt's chart, met with pt.
Pt is POD#9 s/p robotic LAR with DLI, Cruz drain in pelvis. Per wound care, pt will need VN services for ostomy care.
[facility] liaison following.
PT and OT evaluating the pt on a daily basis and no decision regarding next level of care made yet
Awaiting for final determination and recommendations from PT and OT.
D/C plan: home with VN for ostomy care and family support. Awaiting for PT/OT confirmation. Family to transport at discharge.
CM will follow with discharge plan updates as hospitalization progresses
[2023-11-21 13:12] LABS: APTT 60.1 Sec (23.4-35.0)
--- NOTE | 2023-11-21 14:06 | PTCARENOTE ---
patient vomited 550ml, notified Sabrina Rivera, patient made NPO.
--- NOTE | 2023-11-21 15:13 | PTCARENOTE ---
No change in patient's assessment. Patient asked to get back in bed, drainage from KAITLIN drain as noted and will not pull KAITLIN drain per surgery due to patient's vomiting earlier in shift. PAtient resting comfortably at this time.
[2023-11-21] MEDS: ZOLOFT 50 MG PO (18:20)
[2023-11-21] MEDS: DILAUDID 1 MG IV (19:55)
[2023-11-21] MEDS: Parenteral Nutrition, Central 1360 IV (20:00)
[2023-11-21 20:01] LABS: APTT 123.1 Sec (23.4-35.0)
[2023-11-21 20:05] LABS: Glucose - Point of Care 111 mg/dl (70-99)
--- NOTE | 2023-11-21 20:55 | PTCARENOTE ---
Dilaudid given for abdominal pain as requested, with relief. Pt turned/repositioned with minimal assistance. Afebrile. Afib on monitor. Amio transitioned to PO. Current heart rate 110. Pulses palpable. IV lines flushed/patent. TPN hung as ordered.
Heparin gtt adjusted for PTT result. SCDs on. Room air, decreased. Encouraged coughing/deep breathing. NPO X meds. No nausea/vomiting at present. Hypoactive bowel sounds. KAITLIN draining moderate amount serous fluid. Ileostomy with red bud, stoma osmar
present. Draining minimal light brown output. Voided on bedpan. Will monitor.
[2023-11-22] VITALS (14 sets, daily range): BP systolic 95–149; BP diastolic 57–114; BMI 25.9
[2023-11-22] MEDS: DILAUDID 0.5 MG IV ×5 (02:14→21:55)
[2023-11-22] MEDS: ZOFRAN 4 MG IV (02:28)
[2023-11-22 03:11] LABS: Hematocrit 40.4 % (37.0-47.0); Hemoglobin 13.5 g/dL (12.0-16.0); Mean Corp Hgb Conc. 33.4 g/dL (33.0-37.0); Mean Corpuscular Volume 92.9 fL (81.0-99.0); Mean Platelet Volume 10.5 fL (7.4-10.4); Platelet Count 145 10^3/uL (130-400); Red Blood Cell Count 4.35 10^6/uL (4.20-5.40); Red Cell Dist. Width 17.4 % (11.5-14.5); White Blood Cell Count 5.7 10^3/uL (4.8-10.8)
[2023-11-22 03:26] LABS: APTT 137.6 Sec (23.4-35.0)
[2023-11-22 03:36] LABS: Blood Urea Nitrogen 31 mg/dl (7-17); Calcium 8.9 mg/dl (8.4-10.2); Carbon Dioxide 26 mmol/L (22-30); Chloride 107 mmol/L (98-107); Estimated Creatinine Clearance 65 ml/min; Glucose 108 mg/dl (70-99); Magnesium 1.8 mg/dl (1.6-2.3); Phosphorus 3.4 mg/dl (2.5-4.5); Potassium 4.3 mmol/L (3.5-5.1); Sodium 137 mmol/L (135-145); eGFR > 60.00
[2023-11-22] MEDS: HEPARIN 25000 UNITS/250 ML IV (06:14)
--- NOTE | 2023-11-22 06:19 | W.PN.HOSP.TC ---
Today's Communication/Plan
-
.
Assessment / Plan
Assessment / Plan
78-year-old female with history of rectal cancer and recurrent lower GI bleed was recently admitted here. Her hemoglobin was found to be 6.1 and dropped to 5.3 she got 4 units of blood prior to discharge on 11/06/2023. She was seen by oncology and
colorectal surgery. Patient was supposed to finish chemotherapy she has had 8 out of 9 planned treatments with FOLFOX regimen. She also had a mucosal ulceration in the mid rectum which was treated with APC. The plan was for patient to get
surgical resection on 11/25/2023. She was still continuing to have bleeding therefore was brought in to get surgery earlier. Denies any dizziness chest pain or shortness of breath. Patient also has aortic stenosis for which she is undergoing
evaluation to get TAVR.
Physical Exam
-
General: Other (No acute distress)
HEENT: Normocephalic and Anicteric. NG
Cardiovascular: S1/S2, Irregular Rhythm and Other (Systolic murmur present at the aortic area)
Respiratory: no wheezes or crackles.
GI: Soft, not distended, Urine Regan in place). ostomy bag
Neurology: Awake, Alert and Oriented (Oriented to time, place, person)
Skin: Warm and Dry
Psych: no agitation
# Rectal cancer with bleeding, Acute blood loss anemia
S/P Robotic left anterior resection with diverting loop ileostomy on 11/12/2023. Transfused 2 units of blood before surgery
Increased drainage in KAITLIN therefore NG tube placed for expected post op ileus
Patient denies nausea, some pain in abdomen and given Dilaudid
Drain out put around 600 cc.
IV fluids and Regan catheter placed back
ce chips and medicines only
NG removed 11/19
Started on TPN 11/18
# Paroxysmal atrial fibrillation-Now with rapid rates
Still in A fib
Amiodarone started, as needed beta-blockers added
Was not on anticoagulation as outpatient due to rectal bleeding-Heparin gtt started, monitor PTT
Eventual TRACI and cardioversion.
# Hyponatremia, resolved.
# Acute hypoxic respiratory insufficiency-likely secondary to atelectasis-continue oxygen encourage incentive spirometry
#Rectal cancer diagnosed in February 2023 stage IIIb-mid rectal
underwent 8 out of 9 planned chemotherapy with FOLFOX
Had Finished Radiation Therapy in April [address] Faby Henderson
# Chronic heart failure with preserved ejection fraction
Echo 08/05/2023-LV mildly dilated, normal LV systolic function. Mild concentric LVH. Normal RV size and function. Moderate MR. Severe .
Weight seems stable
With blood pressure running on the low side we cannot use Lasix now.
# Severe aortic stenosis--follows with Dr. Torres. Undergoing work up for TAVR-cardiology following
# Mild hyponatremia likely secondary to slight volume overload. Resolved
# Anemia related to malignancy and also acute blood loss secondary to rectal bleeding
# Depression-continue sertraline
# Osteoarthritis
# History of discoid lupus
# Hypoalbuminemia
# Infrarenal abdominal aortic aneurysm, measuring 3.5 cm
# Ex-smoker
# DVT Prophylaxis-Heparin gtt
# Full CODE
Addendum
d/w cardiology and surgery, ok to transfer to tele floor
Total time spent to see the patient, examine the patient on the floor, review data and lab results, discuss treatment plan with patient and nursing staff around 45 minutes
Anticipated Discharge: > 48 hours
Subjective/Interval History
-
Date of Service: November 22, 2023
No issues over night
tolerated liquids
Objective Data
-
Labs:
Laboratory Results
11/21/23 11/22/23 11/22/23
19:43 02:13 02:23
WBC 5.7
Hgb 13.5
Hct 40.4
Plt Count 145
APTT 123.1 H 137.6 H
Sodium 137
Potassium 4.3
Chloride 107
Carbon Dioxide 26
BUN 31 H
Creatinine 0.6
Glucose 108 H
Calcium 8.9
11/22/23
10:46
WBC
Hgb
Hct
Plt Count
APTT Pending
Sodium
Potassium
Chloride
Carbon Dioxide
BUN
Creatinine
Glucose
Calcium
Vital Signs:
Vital Signs
Temp Pulse Resp BP Pulse Ox
97.7 F 107 18 141/77 95
11/22/23 03:00 11/22/23 05:00 11/22/23 05:00 11/22/23 04:00 11/21/23 20:52
I&O
11/20/23 11/21/23 11/22/23
06:59 06:59 06:59
Intake Total 1706.8 / 1769.5 1672.1 / 1754.8 1853.8 / 1853.8
Output Total 2400 / 2400 1960 / 1960 2240 / 2240
Balance -693.2 / -630.5 -287.9 / -205.2 -386.2 / -386.2
--- NOTE | 2023-11-22 08:39 | W.PN.CD ---
Today's Communication / Plan
-
- Patient is being transitioned from IV amiodarone to amiodarone 400 mg PO BID.
- Once tolerating PO, plan is for TRACI/cardioversion.
Impression / Plan
-
Assessment/Plan: 78-year-old female (patient of Dr. Torres) with critical , rectal cancer (hx radiation, chemotherapy-FOLFOX), recurrent rectal bleeding, anemia requiring transfusions, PAF (not on OAC due to bleeding), and HFpEF who was recently
admitted with rectal bleeding and severe anemia (hgb 6.1) requiring transfusion, with colonoscopy with APC treatment. Dr. Knight evaluated during hospitalization and recommended transfusion for goal hgb 10 or higher, and after multidisciplinary
discussion, low anterior resection first and then TAVR after recovery. Surgery was planned for Saturday, but patient had rectal bleeding throughout the weekend and now surgery is planned for tomorrow with Dr. Tenorio (low anterior resection and
ileostomy).
s/p robotic LAR with DLI, ashlee drain in pelvis by Dr Tenorio 11/12/23
-monitor closely in patient with severe
- post op Ileus. NGT removed 11/20/23
Atrial fibrillation, :
- patient with post op AFib with RVR
- Patient is being transitioned from IV amiodarone to amiodarone 400 mg PO BID.
- CHADS2-VASC = 3. On IV heparin since 11/16/2023
- Once tolerating PO, plan is for TRACI/cardioversion.
Aortic stenosis: critical
-Echo 07/16/23: Left ventricle is mildly dilated.Normal left ventricular systolic function. Mild concentric left ventricular hypertrophy. Indexed LA volume is severely abnormal (> 48 mL/m2). Moderate mitral regurgitation. Severe aortic stenosis. The
peak gradient across the valve is 126 mmHg with a mean of 76 mmHg. Color flow pattern suggestive of small PFO.
-Plan for eventual TAVR timing based on recovery from surgery timing will be decided as outpatient after recovery.
Rectal cancer,
-patient had chemo/radiation
- recurrent rectal bleeding and symptomatic anemia requiring transfusions pre op
- Hgb stable post op - monitor. On anticoagulation
HFpEF: chronic
-monitor volume: weight trending down
-will allow autodiuresis, but may eventually need a diuretic
Subjective:
Patient with some nausea/vomiting yesterday; feels better this a.m. Still with A-fib with elevated heart rates at times.
Physical Exam
Vital Signs/Labs
Vital Signs
Temp Pulse Resp BP Pulse Ox
97.7 F 107 18 141/77 95
11/22/23 03:00 11/22/23 05:00 11/22/23 05:00 11/22/23 04:00 11/21/23 20:52
11/21/23 11/22/23 11/23/23
06:59 06:59 06:59
Actual Weight 65 kg 66.2 kg
11/22/23 02:23
11/22/23 02:13
APTT 137.6 Sec (23.4-35.0) H 11/22/23 02:13
Magnesium 1.8 mg/dl (1.6-2.3) 11/22/23 02:13
Triglycerides Cancelled 11/19/23 12:12
Physical Exam
Constitutional: No acute distress and Comfortable
EENT: Anicteric
Cardiovascular: Pedal edema is absent, Rhythm/rate is irregular, Systolic murmur present (4/6) and S1S2 is normal
Respiratory: Respiratory effort normal and Lungs clear to auscul.
GI: Soft
Neuro/Psych: AO x 3
Other: Skin (Warm, dry, intact)
Data Reviewed
-
Date of Service: November 22, 2023
EKG: Tracing Personally Visualized and interpreted (Telemetry: A-fib)
X-Ray/CT/US/MRI/NUC/PET: Discussed with Nurse and Discussed with Patient
Medical Tests (PFT, Pathology etc): Discussed with Physician (Colorectal Surgery)
Labs: Labs Reviewed by me
Critical Care Time (in minutes): 38
[2023-11-22] MEDS: PACERONE 400 MG PO ×2 (08:44→19:59)
--- NOTE | 2023-11-22 08:46 | PTCARENOTE ---
0700 patient in bed. RT PICC line DL dressing intact and dry. TPN at 57/hr. Heparin at 800/8ml next ptt schedule at 10:46; patient denies nausea. Abdominal pain 1/10 pain scale level . pt on RA . Afib 105 BP via left upper arm 113/114. RR 15
Amiodarone po adm per current order .
--- NOTE | 2023-11-22 09:09 | W.PN.CRS1 ---
Today's Communication / Plan
-
� Will defer to cards when okay for stepdown. Okay for med surg from our perspective.
� Restart diet. Full liquids ordered. Continue TPN until tolerating solid foods.
� Pain control with Tylenol and Dilaudid as needed.
� On heparin gtt.
� Appreciate [facility] for ostomy education and supplies.
� OOB with PT.
� Plan on removing KAITLIN drain later today.
� Stoma osmar to remain in place until discharge.
- OR pathology pending.
- IVF as per cardiology.
- for TRACI/cardioversion next week when tolerating PO
Assessment/Plan
-
78-year-old female with PMH of stage III rectal cancer s/p ROOSEVELT, severe (pending TAVR), HFpEF, paroxysmal A-fib who has been having persistent bleeding from her rectal cancer requiring multiple transfusions despite repeat flex sig with APC
POD#10 robotic LAR with DLI, ashlee drain in pelvis
Subjective Data
Procedure
11/12/23 Robotic low anterior resection with diverting loop ileostomy for rectal cancer
Subjective Data
Date of Service: November 22, 2023
She vomited immediately after taking clear liquids yesterday but at present has no complaints. She had transient episode of nausea that responded to Zofran. At present she is hungry and her stoma is functioning.
Objective Data
-
Vital Signs
Temp Pulse Resp BP Pulse Ox
97.5 F 101 18 133/114 95
11/22/23 07:00 11/22/23 08:44 11/22/23 05:00 11/22/23 08:44 11/21/23 20:52
Intake & Output
11/21/23 11/22/23 11/23/23
06:59 06:59 06:59
Intake Total 1672.1 / 1754.8 1853.8 / 1853.8
Output Total 1959 / 1960 2240 / 2240
Balance -287.9 / -205.2 -386.2 / -386.2
Intake:
Oral fluids 240 / 240
IV fluids (Total) 1672.1 / 1754.8 1613.8 / 1613.8
Amiodarone 384.1 / 400.8 66.8 / 66.8
Hep gtt 205 / 214 225 / 225
TPN 1083 / 1140 1322 / 1322
Output:
Emesis 550 / 550
Liquid stool amount 850 / 850 500 / 500
Ileostomy 850 / 850 500 / 500
Drain Output (Total) 610 / 610 840 / 840
Right Lower Abdomen César- 610 / 610 840 / 840
Singh
Urine, Voided 500 / 500 350 / 350
Other:
Number of approximated LARGE 1
amounts of urine
Lab Results
11/22/23 02:23
11/22/23 02:13
Physical Exam
-
General: No Acute Distress
Abdomen: Soft, Distended (Mild), Non Tender and Other (The stoma is passing flatus and has output. KAITLIN output is serous.)
Extremities: No Calf Tenderness
--- NOTE | 2023-11-22 11:54 | PTCARENOTE ---
able to tolerate po meds and full liquid diet with no nausea and vomiting. Ileotomy draining liquid brown output, pt passing flatus. Bowel sound present
--- NOTE | 2023-11-22 12:27 | CM ---
CM following re: discharge planning.
Discussed in Rounds, reviewed pt's chart, met with pt.
Pt is POD#10 s/p robotic LAR with DLI, Cruz drain in pelvis. Per wound care, pt will need VN services for ostomy care.
[facility] liaison following.
PT and OT evaluating the pt on a daily basis and no decision regarding next level of care made yet
Awaiting for final determination and recommendations from PT and OT.
D/C plan: home with VN for ostomy care and family support. Awaiting for PT/OT clarification. Family to transport at discharge.
CM will follow with discharge plan updates as hospitalization progresses
[2023-11-22 12:55] LABS: APTT 74.4 Sec (23.4-35.0)
[2023-11-22] MEDS: LOPRESSOR IV (13:14)
--- NOTE | 2023-11-22 13:26 | PTCARENOTE ---
BP 125/90 Afib 130-156; Metoprolol 2.5 mg IV per prn order. explanation provide to patient the reason and dosage to medication . patient is agreeable Dilaudid adm per prn order for pain 4/10 pain level
--- NOTE | 2023-11-22 14:45 | PTCARENOTE ---
Accu check 63; dextrose 25 mg given per protocol. After 15 mint recheck 123. patient drowsy, aroused to deep pain stimuli. ABG order rT aware
--- NOTE | 2023-11-22 16:21 | VNURNOTE ---
Home Health Liaison continues to follow patient, and review chart daily, however patient is not ready for discharge and referral is not completed in care [facility] at this time.
[facility] referral to be completed closer to discharge home and after patient agrees to VN.
[2023-11-22] MEDS: ZOLOFT 50 MG PO (17:04)
--- NOTE | 2023-11-22 18:22 | PTCARENOTE ---
RT lower abdominal J/P removed by physician delivery assistant, pressure dressing intact, dry. RT Ileotomy passing flatus, draining appropriately, stoma healthy appearance. Dilaudid prn 0.5 for abdominal pain 4/10 pain scale level with appropriate pain
relieve. pt able to tolerate Full liquid diet without nausea and vomiting . pt was offered multiple times OOb chair, pt refused. call desai within reach
[2023-11-22 20:19] LABS: APTT 85.4 Sec (23.4-35.0)
[2023-11-22] MEDS: Parenteral Nutrition, Central 1360 IV (21:50)
[2023-11-23] VITALS (9 sets, daily range): BP systolic 102–148; BP diastolic 59–102; BMI 24.9; BMI 24.0
[2023-11-23] MEDS: TYLENOL 1000 MG PO ×2 (02:24→08:42)
[2023-11-23] MEDS: ZOFRAN 4 MG IV (05:44)
[2023-11-23 05:51] LABS: Hematocrit 41.1 % (37.0-47.0); Hemoglobin 13.7 g/dL (12.0-16.0); Mean Corp Hgb Conc. 33.3 g/dL (33.0-37.0); Mean Corpuscular Hgb 30.3 pg (27.0-31.0); Mean Corpuscular Volume 90.9 fL (81.0-99.0); Mean Platelet Volume 10.9 fL (7.4-10.4); Platelet Count 162 10^3/uL (130-400); Red Blood Cell Count 4.52 10^6/uL (4.20-5.40); Red Cell Dist. Width 17.4 % (11.5-14.5); White Blood Cell Count 6.8 10^3/uL (4.8-10.8)
[2023-11-23 06:03] LABS: APTT 71.3 Sec (23.4-35.0)
--- NOTE | 2023-11-23 06:07 | W.PN.HOSP.TC ---
Today's Communication/Plan
-
.
Assessment / Plan
Assessment / Plan
78-year-old female with history of rectal cancer and recurrent lower GI bleed was recently admitted here. Her hemoglobin was found to be 6.1 and dropped to 5.3 she got 4 units of blood prior to discharge on 11/06/2023. She was seen by oncology and
colorectal surgery. Patient was supposed to finish chemotherapy she has had 8 out of 9 planned treatments with FOLFOX regimen. She also had a mucosal ulceration in the mid rectum which was treated with APC. The plan was for patient to get
surgical resection on 11/25/2023. She was still continuing to have bleeding therefore was brought in to get surgery earlier. Denies any dizziness chest pain or shortness of breath. Patient also has aortic stenosis for which she is undergoing
evaluation to get TAVR.
Physical Exam
-
General: Other (No acute distress)
HEENT: Normocephalic and Anicteric. NG
Cardiovascular: S1/S2, Irregular Rhythm and Other (Systolic murmur present at the aortic area)
Respiratory: no wheezes or crackles.
GI: Soft, not distended, Urine Regan in place). ostomy bag
Neurology: Awake, Alert and Oriented (Oriented to time, place, person)
Skin: Warm and Dry
Psych: no agitation
# Rectal cancer with bleeding, Acute blood loss anemia
S/P Robotic left anterior resection with diverting loop ileostomy on 11/12/2023. Transfused 2 units of blood before surgery
Increased drainage in KAITLIN therefore NG tube placed for expected post op ileus
On Full liquid with good ileostomy output. Mild nausea ( possible related to Dilaudid use), c/w PRN Zofran
NG removed 11/19
Started on TPN 11/18
# Paroxysmal atrial fibrillation-Now with rapid rates
Still in A fib
Oral Amiodarone started, as needed beta-blockers added
Was not on anticoagulation as outpatient due to rectal bleeding-Heparin gtt started, monitor PTT
Eventual TRACI and cardioversion.
# Hyponatremia, resolved.
# Acute hypoxic respiratory insufficiency-likely secondary to atelectasis-continue oxygen encourage incentive spirometry
#Rectal cancer diagnosed in February 2023 stage IIIb-mid rectal
underwent 8 out of 9 planned chemotherapy with FOLFOX
Had Finished Radiation Therapy in April [address] Faby Henderson
# Chronic heart failure with preserved ejection fraction
Echo 08/05/2023-LV mildly dilated, normal LV systolic function. Mild concentric LVH. Normal RV size and function. Moderate MR. Severe .
Weight seems stable
With blood pressure running on the low side we cannot use Lasix now.
# Severe aortic stenosis--follows with Dr. Torres. Undergoing work up for TAVR-cardiology following
# Mild hyponatremia likely secondary to slight volume overload. Resolved
# Anemia related to malignancy and also acute blood loss secondary to rectal bleeding
# Depression-continue sertraline
# Osteoarthritis
# History of discoid lupus
# Hypoalbuminemia
# Infrarenal abdominal aortic aneurysm, measuring 3.5 cm
# Ex-smoker
# DVT Prophylaxis-Heparin gtt
# Full CODE
Addendum
d/w cardiology and surgery, ok to transfer to tele floor
Total time spent to see the patient, examine the patient on the floor, review data and lab results, discuss treatment plan with patient and nursing staff around 45 minutes
Anticipated Discharge: > 48 hours
Subjective/Interval History
-
Date of Service: November 23, 2023
No chest pain
Advised to cut back on Dilaudid
Nausea earlier and given Zofran
Objective Data
-
Labs:
Laboratory Results
11/22/23 11/23/23
19:51 05:41
WBC 6.8
Hgb 13.7
Hct 41.1
Plt Count 162
APTT 85.4 H 71.3 H
Vital Signs:
Vital Signs
Temp Pulse Resp BP Pulse Ox
97.8 F 110 21 138/74 98
11/23/23 03:51 11/23/23 05:00 11/23/23 05:00 11/23/23 02:00 11/22/23 19:30
I&O
11/21/23 11/22/23 11/23/23
06:59 06:59 06:59
Intake Total 1672.1 / 1754.8 1853.8 / 1918.8 1060 / 1060
Output Total 1959 / 1959 2240 / 2240 185 / 1850
Balance -287.9 / -205.2 -386.2 / -321.2 -790 / -790
[2023-11-23] MEDS: PACERONE 400 MG PO ×2 (08:37→19:45)
--- NOTE | 2023-11-23 10:00 | W.PN.CD ---
Today's Communication / Plan
-
Once on reg diet TRACI/DCCV possible Saturday
From cards perspective does not need ICU level of care
Cont amio
Impression / Plan
-
Assessment/Plan: 78-year-old female (patient of Dr. Torres) with critical , rectal cancer (hx radiation, chemotherapy-FOLFOX), recurrent rectal bleeding, anemia requiring transfusions, PAF (not on OAC due to bleeding), and HFpEF who was recently
admitted with rectal bleeding and severe anemia (hgb 6.1) requiring transfusion, with colonoscopy with APC treatment. Dr. Knight evaluated during hospitalization and recommended transfusion for goal hgb 10 or higher, and after multidisciplinary
discussion, low anterior resection first and then TAVR after recovery. Surgery was planned for Saturday, but patient had rectal bleeding throughout the weekend and now surgery is planned for tomorrow with Dr. Tenorio (low anterior resection and
ileostomy).
s/p robotic LAR with DLI, ashlee drain in pelvis by Dr Tenorio 11/12/23
-monitor closely in patient with severe
- post op Ileus. NGT removed 11/20/23
Atrial fibrillation, :
- patient with post op AFib with RVR
- Patient is being transitioned from IV amiodarone to amiodarone 400 mg PO BID continue likely TRACI DCCV if ok from surg perspective and on reg diet
- does not need to be in ICU from cardiology perspective
- CHADS2-VASC = 3. On IV heparin since 11/16/2023
- Once tolerating PO, plan is for TRACI/cardioversion.
Aortic stenosis: critical
-Echo 07/16/23: Left ventricle is mildly dilated.Normal left ventricular systolic function. Mild concentric left ventricular hypertrophy. Indexed LA volume is severely abnormal (> 48 mL/m2). Moderate mitral regurgitation. Severe aortic stenosis. The
peak gradient across the valve is 126 mmHg with a mean of 76 mmHg. Color flow pattern suggestive of small PFO.
-Plan for eventual TAVR timing based on recovery from surgery timing will be decided as outpatient after recovery.
Rectal cancer,
-patient had chemo/radiation
- recurrent rectal bleeding and symptomatic anemia requiring transfusions pre op
- Hgb stable post op - monitor. On anticoagulation
HFpEF: chronic
-monitor volume: weight trending down
-will allow autodiuresis, but may eventually need a diuretic
Subjective:
Feeling better today
Physical Exam
Vital Signs/Labs
Vital Signs
Temp Pulse Resp BP Pulse Ox
97.6 F 110 21 138/74 95
11/23/23 07:20 11/23/23 05:00 11/23/23 05:00 11/23/23 02:00 11/23/23 07:43
11/22/23 11/23/23 11/24/23
06:59 06:59 06:59
Actual Weight 145 lb 15.136 oz 140 lb 6.951 oz
11/23/23 05:41
11/22/23 02:13
APTT 71.3 Sec (23.4-35.0) H 11/23/23 05:41
Magnesium 1.8 mg/dl (1.6-2.3) 11/22/23 02:13
Triglycerides Cancelled 11/19/23 12:12
Physical Exam
Constitutional: No acute distress
Cardiovascular: Rhythm/rate is irregular
Respiratory: Respiratory effort normal and Lungs clear to auscul.
Neuro/Psych: AO x 3
Data Reviewed
-
Date of Service: November 23, 2023
Medical Decision Making: Reviewed Test Results
EKG: Tracing Personally Visualized and interpreted
Echo: Report Reviewed by me (severe as)
Labs: Labs Reviewed by me
[2023-11-23] MEDS: LOPRESSOR 2.5 MG IV ×2 (10:37→18:08)
[2023-11-23] MEDS: DILAUDID 0.5 MG IV ×2 (11:02→20:25)
--- NOTE | 2023-11-23 12:03 | W.PN.GS2 ---
Addendum entered and electronically signed by Kingsley Ochoa MD 11/23/23 14:14:
Patient seen and examined with surgical END FINDER FORMING DEPARTMENT. Agree with documented progress note.
Patient states that she is feeling well, appetite returning and tolerating full liquid diet.
AFVSS
ABD soft, nondistended, diverting loop ileostomy with large quantity of succus entericus
Surgical sites clean
Assessment/plan: Advance to low residue diet; monitor ileostomy outputs
Addendum entered and electronically signed by TIGIST Lew 11/23/23 12:10:
Plan to d/c TPN after current bag infuses as she is tolerating diet
Original Note:
Today's Communication / Plan
-
Advance diet
Assessment / Plan
-
78-year-old female with PMH of stage III rectal cancer s/p ROOSEVELT, severe (pending TAVR), HFpEF, paroxysmal A-fib who has been having persistent bleeding from her rectal cancer requiring multiple transfusions despite repeat flex sig with APC
POD#11 robotic LAR with DLI, ashlee drain in pelvis
AFVSS
For transfer to Tele
Tolerating diet with +flatus/stools via ostomy
Drain removed on 11/21
--Advance to LRD
--Ostomy outputs >1100 will follow closely. Eventual goal <1Liter over 24 hours but will likely see higher outputs initially
--Analagesics prn
--Cardiology/Medicine following for management
--Appreciate WOCN following for ostomy education
--OOB with PT
--Anticipate stoma osmar removal prior to d/c
--OR path pending
Subjective Data
-
Date of Service: November 23, 2023
Patient seen and examined at bedside with Dr. Ochoa. Denies n/v. Tolerating liquids. Abdominal discomfort is minimal.
Objective Data
-
Intake and Output
05/17/24 05/18/24 05/19/24
06:59 06:59 06:59
Intake Total 1853.8 / 1918.8 2019
Output Total 2240 / 2240 1850 / 1850 1050 / 1050
Balance -386.2 / -321.2 170 / 170 -1050 / -1050
Intake:
Oral fluids 240 / 240 330 / 330
IV fluids (Total) 1613.8 / 1678.8 1690 / 1690
Amiodarone 66.8 / 66.8
Hep gtt 225 / 233 208 / 208
TPN 1322 / 1379 1482 / 1482
Output:
Emesis 550 / 550
Liquid stool amount 500 / 500 650 / 650 1050 / 1050
Ileostomy 500 / 500 650 / 650 1050 / 1050
Drain Output (Total) 840 / 840 400 / 400
Right Lower Abdomen César- 840 / 840 400 / 400
Singh
Urine, Voided 350 / 350 800 / 800
Other:
Number of approximated LARGE 1
amounts of urine
How many times incontinent 1
SATURATED amount urine
Vital Signs
Temp Pulse Resp BP Pulse Ox
98.8 F 136 21 141/79 95
11/23/23 11:31 11/23/23 10:37 11/23/23 05:00 11/23/23 10:37 11/23/23 07:43
Lab Results
11/23/23 05:41
11/22/23 02:13
Calcium 8.9 mg/dl (8.4-10.2) 11/22/23 02:13
Phosphorus 3.4 mg/dl (2.5-4.5) 11/22/23 02:13
Magnesium 1.8 mg/dl (1.6-2.3) 11/22/23 02:13
Total Bilirubin 0.4 mg/dl (0.2-1.3) 11/19/23 03:18
AST 20 U/L (14-36) 11/19/23 03:18
ALT < 10 U/L (0-35) 11/19/23 03:18
Alkaline Phosphatase 54 U/L (38-126) 11/19/23 03:18
Total Protein 4.0 g/dl (6.3-8.2) L 11/19/23 03:18
Albumin 1.9 g/dl (3.5-5.0) L 11/19/23 03:18
Physical Exam
-
NAD
ABD soft/nt/nd. Stoma pink/viable with gas/liquid stools in ostomy appliance. Stoma osmar in place.
--- NOTE | 2023-11-23 12:27 | PTCARENOTE ---
Pt received in bed @ 0700. AAOx3. PRN Tylenol and Dilaudid administered for abdominal pain. SaO2 96% on room air. Lungs diminished. Deep breathing encouraged. Atrial fibrilation on transplant worker. Incident observed of sustained HR > 130s. PRN
Lopressor 2.5mg IV administered with (+) effect. HR to 90s - 100s. Illeostomy in place with large brown liquid drainage. Frequent gas release from ostomy required. Advanced to low residue diet for lunch. Voided on bedpan. TPN and Heparin infusing
through (R) DL PICC.
[2023-11-23] MEDS: HEPARIN 25000 UNITS/250 ML IV (15:50)
[2023-11-23] MEDS: ZOLOFT 50 MG PO (18:08)
--- NOTE | 2023-11-23 18:16 | PTCARENOTE ---
Pt ambulated to bathroom and oob to chair with assist x1 and rolling walker. HR observed to 160s during ambulation. Pt denied palpitations or lightheadedness. BP 111/85. When patient returned to chair, HR continued 130s - 140s. PRN Lopressor 2.5mg
IV administered; HR to 100s - 110s.
[2023-11-23 20:17] LABS: APTT 91.2 Sec (23.4-35.0)
--- NOTE | 2023-11-23 20:18 | PTCARENOTE ---
cannot verify vital signs captured before 1900.
--- NOTE | 2023-11-23 21:26 | PTCARENOTE ---
Received pt at 1900 sitting up in chair, AAOx3. 4/10 pain in abdomen- dilaudid given. Ambulating with walker and minimal assist. Afib on tele, HR 100-110 at rest, 130s when moving around. Afebrile. On RA, pulse ox 96%. Lungs CTA. + bowel sounds
throughout. Ileostomy with 250ml brown/green liquid output. Mod. amt gas noted also. R PICC with heparin gtt and TPN. TPN completed and capped. PTT within therapeutic range- heparin gtt remains at 900units/hr.
Report given to Helio LEON. Transferred pt in wheelchair with belongings.
[2023-11-24] VITALS (7 sets, daily range): BP systolic 110–134; BP diastolic 74–83
[2023-11-24] MEDS: DILAUDID 0.5 MG IV (00:35)
[2023-11-24] MEDS: FLUSH (NSS) 2 FLUSH IV ×3 (00:36→17:38)
[2023-11-24 04:36] LABS: APTT 98.9 Sec (23.4-35.0)
--- NOTE | 2023-11-24 09:01 | W.PN.GS2 ---
Addendum entered and electronically signed by Kingsley Ochoa MD 11/24/23 11:03:
Patient seen in follow-up with surgical BENEFITS CONSULTING ANALYST agree with documented progress note
No additions to add.
Original Note:
Today's Communication / Plan
-
follow ostomy outputs
Assessment / Plan
-
78-year-old female with PMH of stage III rectal cancer s/p ROOSEVELT, severe (pending TAVR), HFpEF, paroxysmal A-fib who has been having persistent bleeding from her rectal cancer requiring multiple transfusions despite repeat flex sig with APC
POD#12 robotic LAR with DLI
Afebrile, tachycardia persists.
Tolerating diet with +flatus/stools via ostomy
--Continue LRD, follow off TPN
--Ostomy outputs >1700 over 24/h will follow closely. Eventual goal <1Liter over 24 hours but will likely see higher outputs initially
--Analgesics prn
--Cardiology/Medicine following for management
--Appreciate WOCN following for ostomy education
--OOB with PT
--Anticipate stoma osmar removal prior to d/c
--OR path pending
--Cardiology following for management of Afib
Subjective Data
-
Date of Service: November 24, 2023
Patient seen and examined at bedside. Denies n/v. Tolerating diet but has a poor appetite. Passing flatus/stool through stoma. OOB/Ambulating.
Objective Data
-
Intake and Output
11/23/23 11/24/23 11/25/23
06:59 06:59 06:59
Intake Total 2019 258 / 258
Output Total 1850 / 1850 1750 / 1750
Balance 170 / 170 -1492 / -1492
Intake:
Oral fluids 330 / 330 240 / 240
IV fluids (Total) 1690 / 1690
Hep gtt 208 / 208
TPN 1482 / 1482
Output:
Liquid stool amount 650 / 650 1750 / 1750
Ileostomy 650 / 650 1750 / 1750
Drain Output (Total) 400 / 400
Right Lower Abdomen César- 400 / 400
Singh
Urine, Voided 800 / 800
Other:
Number of approximated MODERATE 1
amounts of urine
How many times incontinent 1
SATURATED amount urine
Vital Signs
Temp Pulse Resp BP Pulse Ox
97.8 F 92 18 122/74 96
11/24/23 07:35 11/24/23 07:35 11/24/23 07:35 11/24/23 07:35 11/24/23 07:35
Lab Results
11/23/23 05:41
11/22/23 02:13
Calcium 8.9 mg/dl (8.4-10.2) 11/22/23 02:13
Phosphorus 3.4 mg/dl (2.5-4.5) 11/22/23 02:13
Magnesium 1.8 mg/dl (1.6-2.3) 11/22/23 02:13
Total Bilirubin 0.4 mg/dl (0.2-1.3) 11/19/23 03:18
AST 20 U/L (14-36) 11/19/23 03:18
ALT < 10 U/L (0-35) 11/19/23 03:18
Alkaline Phosphatase 54 U/L (38-126) 11/19/23 03:18
Total Protein 4.0 g/dl (6.3-8.2) L 11/19/23 03:18
Albumin 1.9 g/dl (3.5-5.0) L 11/19/23 03:18
Physical Exam
-
NAD
ABD soft/nt/nd. Stoma pink/viable with gas/liquid stools in ostomy appliance. Stoma osmar in place.
[2023-11-24] MEDS: PACERONE 400 MG PO ×2 (09:15→19:59)
--- NOTE | 2023-11-24 09:23 | W.PN.CD ---
Today's Communication / Plan
-
Eliquis 5 mg to start tonight
TRACI DCCV tomorrow
Impression / Plan
-
Assessment/Plan: 78-year-old female (patient of Dr. Torres) with critical , rectal cancer (hx radiation, chemotherapy-FOLFOX), recurrent rectal bleeding, anemia requiring transfusions, PAF (not on OAC due to bleeding), and HFpEF who was recently
admitted with rectal bleeding and severe anemia (hgb 6.1) requiring transfusion, with colonoscopy with APC treatment. Dr. Knight evaluated during hospitalization and recommended transfusion for goal hgb 10 or higher, and after multidisciplinary
discussion, low anterior resection first and then TAVR after recovery. Surgery was planned for Saturday, but patient had rectal bleeding throughout the weekend and now surgery is planned for tomorrow with Dr. Tenorio (low anterior resection and
ileostomy).
s/p robotic LAR with DLI, ashlee drain in pelvis by Dr Tenorio 11/12/23
-monitor closely in patient with severe
- post op Ileus. NGT removed 11/20/23
Atrial fibrillation, :
- patient with post op AFib with RVR
- TRACI DCCV tomorrow
- Stop heparin gtt start Eliquis 5 mg bid
- CHADS2-VASC = 3. On IV heparin since 11/16/2023
- continue amio
Aortic stenosis: critical
-Echo 07/16/23: Left ventricle is mildly dilated.Normal left ventricular systolic function. Mild concentric left ventricular hypertrophy. Indexed LA volume is severely abnormal (> 48 mL/m2). Moderate mitral regurgitation. Severe aortic stenosis. The
peak gradient across the valve is 126 mmHg with a mean of 76 mmHg. Color flow pattern suggestive of small PFO.
-Plan for eventual TAVR timing based on recovery from surgery timing will be decided as outpatient after recovery.
Rectal cancer,
-patient had chemo/radiation
- recurrent rectal bleeding and symptomatic anemia requiring transfusions pre op
- Hgb stable post op - monitor. On anticoagulation
HFpEF: chronic
-monitor volume: weight trending down
-will allow autodiuresis, but may eventually need a diuretic
Subjective:
Continues to feel better saleem now on more solid diet
Physical Exam
Vital Signs/Labs
Vital Signs
Temp Pulse Resp BP Pulse Ox
97.8 F 92 18 122/74 96
11/24/23 07:35 11/24/23 07:35 11/24/23 07:35 11/24/23 07:35 11/24/23 07:35
11/23/23 11/24/23 11/25/23
06:59 06:59 06:59
Actual Weight 140 lb 6.951 oz 135 lb 8 oz
11/23/23 05:41
11/22/23 02:13
APTT 98.9 Sec (23.4-35.0) H 11/24/23 04:16
Magnesium 1.8 mg/dl (1.6-2.3) 11/22/23 02:13
Triglycerides Cancelled 11/19/23 12:12
Physical Exam
Constitutional: No acute distress
EENT: Anicteric
Cardiovascular: Pedal edema is absent and Rhythm/rate is irregular
Respiratory: Respiratory effort normal and Lungs clear to auscul.
GI: Soft
Neuro/Psych: AO x 3
Data Reviewed
-
Date of Service: November 24, 2023
Medical Decision Making: Reviewed Test Results
EKG: Tracing Personally Visualized and interpreted (af)
Labs: Labs Reviewed by me
[2023-11-24] MEDS: LOPRESSOR 2.5 MG IV ×2 (09:50→23:39)
--- NOTE | 2023-11-24 10:34 | W.PN.HOSP.TC ---
Today's Communication/Plan
-
.
Assessment / Plan
Assessment / Plan
78-year-old female with history of rectal cancer and recurrent lower GI bleed was recently admitted here. Her hemoglobin was found to be 6.1 and dropped to 5.3 she got 4 units of blood prior to discharge on 11/06/2023. She was seen by oncology and
colorectal surgery. Patient was supposed to finish chemotherapy she has had 8 out of 9 planned treatments with FOLFOX regimen. She also had a mucosal ulceration in the mid rectum which was treated with APC. The plan was for patient to get
surgical resection on 11/25/2023. She was still continuing to have bleeding therefore was brought in to get surgery earlier. Denies any dizziness chest pain or shortness of breath. Patient also has aortic stenosis for which she is undergoing
evaluation to get TAVR.
Physical Exam
-
General: Other (No acute distress)
HEENT: Normocephalic and Anicteric. NG
Cardiovascular: S1/S2, Irregular Rhythm and Other (Systolic murmur present at the aortic area)
Respiratory: no wheezes or crackles.
GI: Soft, not distended, Urine Regan in place). ostomy bag
Neurology: Awake, Alert and Oriented (Oriented to time, place, person)
Skin: Warm and Dry
Psych: no agitation
# Rectal cancer with bleeding, Acute blood loss anemia
S/P Robotic left anterior resection with diverting loop ileostomy on 11/12/2023. Transfused 2 units of blood before surgery
Increased drainage in KAITLIN therefore NG tube placed for expected post op ileus
Advised to avoid narcotics. Mild nausea at times ( possible related to Dilaudid use), c/w PRN Zofran
NG removed 11/19
Started on TPN 11/18
Now on low residue diet. Tolerating diet with positive flatus and good to high amount of stools via ostomy. Might need PRN Lomotil/ Imodium at one point.
# Paroxysmal atrial fibrillation-Now with rapid rates
Still in A fib
Oral Amiodarone started, as needed beta-blockers added
Was not on anticoagulation as outpatient due to rectal bleeding-Heparin gtt started, monitor PTT
Eventual TRACI and cardioversion, likely Friday 11/24.
# Hyponatremia, resolved.
# Acute hypoxic respiratory insufficiency-likely secondary to atelectasis-continue oxygen encourage incentive spirometry, resolved.
#Rectal cancer diagnosed in February 2023 stage IIIb-mid rectal
underwent 8 out of 9 planned chemotherapy with FOLFOX
Had Finished Radiation Therapy in April [address] Faby Henderson
# Chronic heart failure with preserved ejection fraction
Echo 08/05/2023-LV mildly dilated, normal LV systolic function. Mild concentric LVH. Normal RV size and function. Moderate MR. Severe .
With blood pressure running on the low normal , Lasix on hold. Weight seems stable.
# Severe aortic stenosis--follows with Dr. Torres. Undergoing work up for TAVR-cardiology following
# Mild hyponatremia likely secondary to slight volume overload. Resolved
# Anemia related to malignancy and also acute blood loss secondary to rectal bleeding
# Depression-continue sertraline
# Osteoarthritis
# History of discoid lupus
# Hypoalbuminemia
# Infrarenal abdominal aortic aneurysm, measuring 3.5 cm
# Ex-smoker
# DVT Prophylaxis-Heparin gtt
# Full CODE
Total time spent to see the patient, examine the patient on the floor, review data and lab results, discuss treatment plan with patient and nursing staff around 45 minutes
Anticipated Discharge: > 48 hours
Subjective/Interval History
-
Date of Service: November 24, 2023
No chest pain
No sob
Objective Data
-
Labs:
Laboratory Results
11/24/23
04:16
APTT 98.9 H
Vital Signs:
Vital Signs
Temp Pulse Resp BP Pulse Ox
97.8 F 92 18 122/74 96
11/24/23 07:35 11/24/23 07:35 11/24/23 07:35 11/24/23 07:35 11/24/23 07:35
I&O
11/23/23 11/24/23 11/25/23
06:59 06:59 06:59
Intake Total 2019 258 / 258
Output Total 1850 / 1850 1750 / 1750
Balance 170 / 170 -1492 / -1492
--- NOTE | 2023-11-24 14:55 | CM ---
CM sent referral via [facility] to [facility] for VN.
[2023-11-24] MEDS: ZOLOFT 50 MG PO (16:57)
[2023-11-24] MEDS: LOPRESSOR IV (17:37)
[2023-11-24] MEDS: TYLENOL 1000 MG PO (17:39)
[2023-11-24] MEDS: ELIQUIS 5 MG PO (19:59)
[2023-11-25] VITALS (10 sets, daily range): BP systolic 102–125; BP diastolic 50–78; PULSE 65; O2SAT 98; BMI 23.2
[2023-11-25] MEDS: DILAUDID 0.5 MG IV (01:51)
[2023-11-25 06:05] LABS: Hematocrit 38.4 % (37.0-47.0); Hemoglobin 12.6 g/dL (12.0-16.0); Mean Corp Hgb Conc. 32.8 g/dL (33.0-37.0); Mean Corpuscular Hgb 30.8 pg (27.0-31.0); Mean Corpuscular Volume 93.9 fL (81.0-99.0); Platelet Count 177 10^3/uL (130-400); Red Blood Cell Count 4.09 10^6/uL (4.20-5.40); Red Cell Dist. Width 17.3 % (11.5-14.5); White Blood Cell Count 6.4 10^3/uL (4.8-10.8)
[2023-11-25 06:28] LABS: APTT 35.2 Sec (23.4-35.0)
[2023-11-25 06:35] LABS: Blood Urea Nitrogen 38 mg/dl (7-17); Calcium 9.4 mg/dl (8.4-10.2); Carbon Dioxide 23 mmol/L (22-30); Chloride 109 mmol/L (98-107); Estimated Creatinine Clearance 39 ml/min; Glucose 81 mg/dl (70-99); Potassium 4.9 mmol/L (3.5-5.1); Sodium 135 mmol/L (135-145); eGFR 58.02
[2023-11-25] MEDS: ELIQUIS 5 MG PO ×2 (08:13→20:37)
[2023-11-25] MEDS: PACERONE 400 MG PO (08:14)
--- NOTE | 2023-11-25 08:44 | W.PN.HOSP.TC ---
Today's Communication/Plan
-
TRACI/cardioversion
Continue Eliquis
Amiodarone
Discharge planning-case management
Assessment / Plan
Assessment / Plan
78-year-old female with history of rectal cancer and recurrent lower GI bleed was recently admitted here. Her hemoglobin was found to be 6.1 and dropped to 5.3 she got 4 units of blood prior to discharge on 11/06/2023. She was seen by oncology and
colorectal surgery. Patient was supposed to finish chemotherapy she has had 8 out of 9 planned treatments with FOLFOX regimen. She also had a mucosal ulceration in the mid rectum which was treated with APC. The plan was for patient to get
surgical resection on 11/25/2023. She was still continuing to have bleeding therefore was brought in to get surgery earlier. Denies any dizziness chest pain or shortness of breath. Patient also has aortic stenosis for which she is undergoing
evaluation to get TAVR.
CVS: S1-S2 Irregular, SM at aa
Chest: CTA B/L
Abdomen: Soft, Stoma with stool,Bowel sounds present, mild discomfort in the lower quadrants
Extremities: No edema
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
# Rectal cancer with bleeding, Acute blood loss anemia
S/P Robotic left anterior resection with diverting loop ileostomy on 11/12/2023. Transfused 2 units of blood before surgery
Increased drainage in KAITLIN therefore NG tube placed for expected post op ileus , TPN Started 11/19/23,NG removed 11/19
Now on low residue diet. Tolerating diet with positive flatus and good to high amount of stools via ostomy. Might need PRN Lomotil/ Imodium at one point.
Advised to avoid narcotics. Mild nausea at times ( possible related to Dilaudid use), c/w PRN Zofran
# Paroxysmal atrial fibrillation
Still in A fib
Oral Amiodarone started, as needed beta-blockers added
Was not on anticoagulation as outpatient due to rectal bleeding
TRACI and cardioversion, likely Friday 11/24.
Eliquis started on 11/24/2023
# Hyponatremia, resolved.
# Acute hypoxic respiratory insufficiency-likely secondary to atelectasis-continue oxygen encourage incentive spirometry, resolved.
#Rectal cancer diagnosed in February 2023 stage IIIb-mid rectal
underwent 8 out of 9 planned chemotherapy with FOLFOX
Had Finished Radiation Therapy in April [address] Faby Henderson
# Chronic heart failure with preserved ejection fraction
Echo 08/05/2023-LV mildly dilated, normal LV systolic function. Mild concentric LVH. Normal RV size and function. Moderate MR. Severe .
With blood pressure running on the low normal , Lasix on hold. Weight seems stable.
# Severe aortic stenosis--follows with Dr. Torres. Undergoing work up for TAVR-cardiology following
# Mild hyponatremia likely secondary to slight volume overload. Resolved
# Anemia related to malignancy and also acute blood loss secondary to rectal bleeding
# Depression-continue sertraline
# Osteoarthritis
# History of discoid lupus
# Hypoalbuminemia
# Infrarenal abdominal aortic aneurysm, measuring 3.5 cm
# Ex-smoker
# DVT Prophylaxis-Eliquis
# Full CODE
Discussed with nursing at bedside
Anticipated Discharge: Within 24 hours
Subjective/Interval History
-
Date of Service: November 25, 2023
Objective Data
-
Labs:
Laboratory Results
11/25/23
05:57
WBC 6.4
Hgb 12.6
Hct 38.4
Plt Count 177
APTT 35.2 H
Sodium 135
Potassium 4.9
Chloride 109 H
Carbon Dioxide 23
BUN 38 H
Creatinine 1.0
Glucose 81
Calcium 9.4
Vital Signs:
Vital Signs
Temp Pulse Resp BP Pulse Ox
97.7 F 105 18 125/78 94
11/25/23 07:30 11/25/23 08:14 11/25/23 07:30 11/25/23 08:14 11/25/23 07:30
I&O
11/24/23 11/25/23 11/26/23
06:59 06:59 06:59
Intake Total 258 / 258 840 / 840
Output Total 1750 / 1750 1275 / 1275
Balance -1492 / -1492 -435 / -435
--- NOTE | 2023-11-25 08:48 | W.PN.CD ---
Today's Communication / Plan
-
julian/ddcv today
will reduce amiodarone to 200mg daily
Impression / Plan
-
Assessment/Plan: 78-year-old female (patient of Dr. Torres) with critical , rectal cancer (hx radiation, chemotherapy-FOLFOX), recurrent rectal bleeding, anemia requiring transfusions, PAF (not on OAC due to bleeding), and HFpEF who was recently
admitted with rectal bleeding and severe anemia (hgb 6.1) requiring transfusion, with colonoscopy with APC treatment. Dr. Knight evaluated during hospitalization and recommended transfusion for goal hgb 10 or higher, and after multidisciplinary
discussion, low anterior resection first and then TAVR after recovery. Surgery was planned for Saturday, but patient had rectal bleeding throughout the weekend and now surgery is planned for tomorrow with Dr. Tenorio (low anterior resection and
ileostomy).
s/p robotic LAR with DLI, ashlee drain in pelvis by Dr Tenorio 11/12/23
-monitor closely in patient with severe
- post op Ileus. NGT removed 11/20/23
Atrial fibrillation, :
- patient with post op AFib with RVR
- JULIAN DCCV today
- Continue Eliquis 5 mg bid
- CHADS2-VASC = 3. On IV heparin since 11/16/2023
- continue amiodarone bu she has completed IV/po load will reduce to 200mg a day.
Aortic stenosis: critical
-Echo 07/16/23: Left ventricle is mildly dilated.Normal left ventricular systolic function. Mild concentric left ventricular hypertrophy. Indexed LA volume is severely abnormal (> 48 mL/m2). Moderate mitral regurgitation. Severe aortic stenosis. The
peak gradient across the valve is 126 mmHg with a mean of 76 mmHg. Color flow pattern suggestive of small PFO.
-Plan for eventual TAVR timing based on recovery from surgery timing will be decided as outpatient after recovery.
Rectal cancer,
-patient had chemo/radiation
- recurrent rectal bleeding and symptomatic anemia requiring transfusions pre op
- Hgb stable post op - monitor. On anticoagulation
HFpEF: chronic
-monitor volume: weight trending down
-no need for diuretic
Subjective:
Continues to feel better just tired from a lot of guests, no cp or sob, mild abd pain
Physical Exam
Vital Signs/Labs
Vital Signs
Temp Pulse Resp BP Pulse Ox
97.7 F 105 18 125/78 94
11/25/23 07:30 11/25/23 08:14 11/25/23 07:30 11/25/23 08:14 11/25/23 07:30
11/24/23 11/25/23 11/26/23
06:59 06:59 06:59
Actual Weight 61.462 kg
11/25/23 05:57
11/25/23 05:57
APTT 35.2 Sec (23.4-35.0) H 11/25/23 05:57
Magnesium 1.8 mg/dl (1.6-2.3) 11/22/23 02:13
Triglycerides Cancelled 11/19/23 12:12
Physical Exam
Constitutional: No acute distress
Cardiovascular: Pedal edema is absent, JVD pressure is normal, Rhythm/rate is irregular and Systolic murmur present
Respiratory: Respiratory effort normal, Lungs clear to auscul., Wheeze Absent and Crackles Absent
Neuro/Psych: AO x 3
Data Reviewed
-
Date of Service: November 25, 2023
--- NOTE | 2023-11-25 09:25 | ITS.CL.CARDI ---
Sample Book Maker - Cardioversion
Cardioversion
Procedure Report:
Date of Procedure: 11/25/23.
Procedure: Cardioversion.
Indication: Symptomatic atrial fibrillation.
Performing Physician: Yeimi Castro MD
Technique: The patient was brought to the holding area. Signed informed consent was obtained. A time out was called and performed. The patient was sedated by a member of the anesthesia service. Anticoagulation status was reviewed and was
appropriate. TRACI was performed and didn't show evidence of LA/DEON/RA or RAA thrombus. R-2 pads were placed anteriorly and laterally.. A 200 J synchronized biphasic shock restored normal sinus rhythm without significant bradycardia. There were no
complications.
Conclusion: Uncomplicated cardioversion from atrial fibrillation to sinus rhythm.
Recommendation: Routine post cardioversion care. Continue long term care pharmacist anticoagulation.
cc: Brian
--- NOTE | 2023-11-25 09:27 | W.PN.UPDATE ---
Update Note
Progress Note Update
TRACI/DCCV was successful in restoring NSR.
--- NOTE | 2023-11-25 10:26 | W.PN.UPDATE ---
Update Note
Progress Note Update
Attempted to see patient. She was not present in room, getting cardioverted today. Okay to continue diet post procedure. No further TPN.
--- NOTE | 2023-11-25 11:59 | W.PN.CRS1 ---
Today's Communication / Plan
-
change to regular diet
Assessment/Plan
-
POD#13 robotic LAR with DLI
Afebrile, now in sinus
Tolerating diet with +flatus/stools via ostomy - 1900ml output
� Cardioverted this AM. Will defer to cards when okay for discharge.
� Okay to resume diet. Will change low residue to regular given ileostomy output
� Pain control with Tylenol and Dilaudid as needed.
� On Eliquis.
� Appreciate WOCN for ostomy education and supplies.
� OOB with PT.
� Stoma osmar to remain in place until discharge.
- OR pathology pending.
- PT/Case management for placement (rehab vs home with VN).
Subjective Data
Procedure
11/12/23 Robotic low anterior resection with diverting loop ileostomy for rectal cancer
Subjective Data
Date of Service: November 25, 2023
Patient states she has no nausea or vomiting. She had some pain which resolved with pain medication. She is tolerating a diet. She had some mucus discharge from her rectum.
Objective Data
-
Vital Signs
Temp Pulse Resp BP Pulse Ox
97.3 F 58 18 104/53 94
11/25/23 11:25 11/25/23 11:25 11/25/23 11:25 11/25/23 11:25 11/25/23 11:25
Intake & Output
11/24/23 11/25/23 11/26/23
06:59 06:59 06:59
Intake Total 258 / 258 840 / 840
Output Total 1750 / 1750 1275 / 1275
Balance -1492 / -1492 -435 / -435
Intake:
Oral fluids 240 / 240 840 / 840
IV fluids (Total)
Hep gtt
Output:
Liquid stool amount 0 / 175 1275 / 1275
Ileostomy 1749 175 1275 / 1275
Other:
Number of approximated MODERATE 1 2
amounts of urine
Lab Results
11/25/23 05:57
11/25/23 05:57
Physical Exam
-
General: No Acute Distress and AOx3
Abdomen: Soft, Non Distended, Non Tender and Other (ileostomy warm and pink with liquid stool output, osmar in place)
Skin: Warm and Dry
--- NOTE | 2023-11-25 15:41 | CM ---
Addendum entered by Adrianna Montesinos RN 11/25/23 16:08:
IMM placed on chart.
Original Note:
Reviewed the chart notes and spoke with the patient and her sister at the bedside. PT recommending SNF/rehab. Reviewed are SNF/rehabs. Referrals sent via [facility] with [facility]. CM continues to be available to patient/family and is monitoring
medical plan for needs at discharge.
Plan: Discharge to SNF/rehab once bed found. No precert required.
[2023-11-25] MEDS: IMODIUM 2 MG PO ×2 (16:21→21:06)
[2023-11-25] MEDS: ZOLOFT 50 MG PO (17:48)
[2023-11-25 21:40] LABS: Glucose - Point of Care 116 mg/dl (70-99)
[2023-11-26] MEDS: ROXICODONE 5 MG PO (00:12)
[2023-11-26 03:49] VITALS: BP 147/87
[2023-11-26 05:07] VITALS: BMI 22.6
[2023-11-26 05:44] LABS: Blood Urea Nitrogen 32 mg/dl (7-17); Calcium 9.3 mg/dl (8.4-10.2); Carbon Dioxide 21 mmol/L (22-30); Chloride 109 mmol/L (98-107); Estimated Creatinine Clearance 39 ml/min; Glucose 78 mg/dl (70-99); Potassium 4.4 mmol/L (3.5-5.1); Sodium 135 mmol/L (135-145); eGFR 58.02
[2023-11-26 06:00] VITALS: BMI 22.6
[2023-11-26 07:35] VITALS: BP 101/52
--- NOTE | 2023-11-26 08:20 | W.PN.CD ---
Today's Communication / Plan
-
Amiodarone 200 mg daily
Eliquis 5 mg BID
She has follow up with Dr Torres on November 29, 2023
Impression / Plan
-
Assessment/Plan: 78-year-old female (patient of Dr. Torres) with critical , rectal cancer (hx radiation, chemotherapy-FOLFOX), recurrent rectal bleeding, anemia requiring transfusions, PAF (not on OAC due to bleeding), and HFpEF who was recently
admitted with rectal bleeding and severe anemia (hgb 6.1) requiring transfusion, with colonoscopy with APC treatment. Dr. Knight evaluated during hospitalization and recommended transfusion for goal hgb 10 or higher, and after multidisciplinary
discussion, low anterior resection first and then TAVR after recovery. Surgery was planned for Saturday, but patient had rectal bleeding throughout the weekend and now surgery is planned for tomorrow with Dr. Tenorio (low anterior resection and
ileostomy).
s/p robotic LAR with DLI, ashlee drain in pelvis by Dr Tenorio 11/12/23
-monitor closely in patient with severe
- post op Ileus. NGT removed 11/20/23
Atrial fibrillation, :
- patient with post op AFib with RVR
- TRACI DCCV November 24 with roman catholic of SR
- Continue Eliquis 5 mg bid
- CHADS2-VASC = 3. On IV heparin since 11/16/2023
- 200 mg daily amiodarone
Aortic stenosis: critical
-Echo 07/16/23: Left ventricle is mildly dilated.Normal left ventricular systolic function. Mild concentric left ventricular hypertrophy. Indexed LA volume is severely abnormal (> 48 mL/m2). Moderate mitral regurgitation. Severe aortic stenosis. The
peak gradient across the valve is 126 mmHg with a mean of 76 mmHg. Color flow pattern suggestive of small PFO.
-Plan for eventual TAVR timing based on recovery from surgery timing will be decided as outpatient after recovery.
Rectal cancer,
-patient had chemo/radiation
- recurrent rectal bleeding and symptomatic anemia requiring transfusions pre op
- Hgb stable post op - monitor. On anticoagulation
HFpEF: chronic
-monitor volume: weight trending down
-no need for diuretic
Subjective:
Overall feeling better loooking forward to d/c
Physical Exam
Vital Signs/Labs
Vital Signs
Temp Pulse Resp BP Pulse Ox
98.2 F 75 18 147/87 96
11/26/23 03:49 11/26/23 03:49 11/26/23 03:49 11/26/23 03:49 11/26/23 03:49
11/25/23 11/26/23 11/27/23
06:59 06:59 06:59
Actual Weight 127 lb 8 oz
11/25/23 05:57
11/26/23 04:54
APTT 35.2 Sec (23.4-35.0) H 11/25/23 05:57
Magnesium 1.8 mg/dl (1.6-2.3) 11/22/23 02:13
Triglycerides Cancelled 11/19/23 12:12
Physical Exam
Constitutional: No acute distress
EENT: Anicteric
Cardiovascular: Rhythm & rate is regular and Pedal edema is absent
Respiratory: Respiratory effort normal and Lungs clear to auscul.
GI: Soft
Neuro/Psych: AO x 3
Data Reviewed
-
Date of Service: November 26, 2023
EKG: Tracing Personally Visualized and interpreted (sr)
Echo: Report Reviewed by me (severe as )
Labs: Labs Reviewed by me
[2023-11-26] MEDS: ELIQUIS 5 MG PO (08:33)
[2023-11-26] MEDS: PACERONE 200 MG PO (08:33)
[2023-11-26] MEDS: IMODIUM 2 MG PO ×2 (08:36→16:02)
--- NOTE | 2023-11-26 09:19 | W.PN.CRS1 ---
Today's Communication / Plan
-
continue regular diet
d/c metamucil
d/c picc
stoma osmar removed
possible d/c to rehab today if bed found
Assessment/Plan
-
POD#14 robotic LAR with DLI
Afebrile, now in sinus
Tolerating diet with +flatus/stools via ostomy - 1200ml output (previous 1900ml)
� Cardioverted this yesterday. Will defer to cards when okay for discharge (I have reached out to them).
� Tolerating a regular diet.
� Pain control with Tylenol. D/C Dilaudid. Change to oxycodone PRN.
� On Eliquis.
� Appreciate WOCN for ostomy education and supplies.
� OOB with PT. She has been recommended to rehab.
� Stoma osmar removed today, in the ileostomy bag, okay to discharge when bag needs to be changed.
- OR pathology pending.
- D/C Metamucil given nausea. Continue Imodium. Ileostomy output goal is 300 - 1000ml in 24 hours.
- D/C PICC line.
- Dispo: possibly later today pending rehab.
Subjective Data
Procedure
11/12/23 Robotic low anterior resection with diverting loop ileostomy for rectal cancer
Subjective Data
Date of Service: November 26, 2023
Patient states she had no issues overnight. Her only complaint is that when she had Metamucil yesterday, she felt nauseous. She has had no nausea or vomiting since. She is having flatus and stool in her ileostomy. She has no pain. She is asking to
take a shower.
Objective Data
-
Vital Signs
Temp Pulse Resp BP Pulse Ox
97.9 F 52 16 101/52 97
11/26/23 07:35 11/26/23 08:33 11/26/23 07:35 11/26/23 08:33 11/26/23 07:35
Intake & Output
11/25/23 11/26/23 11/27/23
06:59 06:59 06:59
Intake Total 840 / 840 1470 / 1470
Output Total 1275 / 1275 1250 / 1250
Balance -435 / -435 220 / 220
Intake:
Oral fluids 840 / 840 1470 / 1470
Output:
Liquid stool amount 1275 / 1275 1250 / 1250
Ileostomy 1275 / 1275 1250 / 1250
Other:
Number of approximated MODERATE 2 2
amounts of urine
Number of approximated LARGE 1
amounts of urine
Lab Results
11/25/23 05:57
11/26/23 04:54
Physical Exam
-
General: No Acute Distress and AOx3
Abdomen: Soft, Non Distended, Non Tender and Other (ileostomy warm and pink with output - stoma osmar removed)
Incision: Clear, Dry, Intact
--- NOTE | 2023-11-26 10:54 | W.PN.HOSP.TC ---
Today's Communication/Plan
-
OK for discharge
needs Eliquis at discharge
Assessment / Plan
Assessment / Plan
78-year-old female with history of rectal cancer and recurrent lower GI bleed was recently admitted here. Her hemoglobin was found to be 6.1 and dropped to 5.3 she got 4 units of blood prior to discharge on 11/06/2023. She was seen by oncology and
colorectal surgery. Patient was supposed to finish chemotherapy she has had 8 out of 9 planned treatments with FOLFOX regimen. She also had a mucosal ulceration in the mid rectum which was treated with APC. The plan was for patient to get
surgical resection on 11/25/2023. She was still continuing to have bleeding therefore was brought in to get surgery earlier. Denies any dizziness chest pain or shortness of breath. Patient also has aortic stenosis for which she is undergoing
evaluation to get TAVR.
CVS: S1-S2 Regular, SM at aa
Chest: CTA B/L
Abdomen: Soft, Stoma with stool,Bowel sounds present
Extremities: No edema
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
# Rectal cancer with bleeding, Acute blood loss anemia
S/P Robotic left anterior resection with diverting loop ileostomy on 11/12/2023. Transfused 2 units of blood before surgery
Increased drainage in KAITLIN therefore NG tube placed for expected post op ileus , TPN Started 11/19/23,NG removed 11/19
Now on low residue diet. Tolerating diet with positive flatus and good to high amount of stools via ostomy. Imodium 2 mg TID
# Paroxysmal atrial fibrillation
S/P CV and converted to SR
Oral Amiodarone
Was not on anticoagulation as outpatient due to rectal bleeding
Eliquis started on 11/24/2023-Pt aware she has to continue AC
# Hyponatremia, resolved.
# Acute hypoxic respiratory insufficiency-likely secondary to atelectasis-continue oxygen encourage incentive spirometry, resolved.
#Rectal cancer diagnosed in February 2023 stage IIIb-mid rectal
underwent 8 out of 9 planned chemotherapy with FOLFOX
Had Finished Radiation Therapy in April [address] Faby Henderson
# Chronic heart failure with preserved ejection fraction
Echo 08/05/2023-LV mildly dilated, normal LV systolic function. Mild concentric LVH. Normal RV size and function. Moderate MR. Severe .
With blood pressure running on the low normal , Lasix on hold. Weight seems stable. May not need at discharge as she has high ostomy output.
# Severe aortic stenosis--follows with Dr. Torres. Undergoing work up for TAVR-cardiology following
# Mild hyponatremia likely secondary to slight volume overload. Resolved
# Anemia related to malignancy and also acute blood loss secondary to rectal bleeding
# Depression-continue sertraline
# Osteoarthritis
# History of discoid lupus
# Hypoalbuminemia
# Infrarenal abdominal aortic aneurysm, measuring 3.5 cm
# Ex-smoker
# DVT Prophylaxis-Eliquis
# Full CODE
Discussed with nursing at bedside
D/W Case management re discharge planning.
Anticipated Discharge: Within 24 hours
Subjective/Interval History
-
Date of Service: November 26, 2023
Objective Data
-
Labs:
Laboratory Results
11/26/23
04:54
Sodium 135
Potassium 4.4
Chloride 109 H
Carbon Dioxide 21 L
BUN 32 H
Creatinine 1.0
Glucose 78
Calcium 9.3
Vital Signs:
Vital Signs
Temp Pulse Resp BP Pulse Ox
97.9 F 52 16 101/52 97
11/26/23 07:35 11/26/23 08:33 11/26/23 07:35 11/26/23 08:33 11/26/23 07:35
I&O
11/25/23 11/26/23 11/27/23
06:59 06:59 06:59
Intake Total 840 / 840 1470 / 1470
Output Total 1275 / 1275 1250 / 1250
Balance -435 / -435 220 / 220
--- NOTE | 2023-11-26 11:30 | WOUNDNOTE ---
WON RN NOTE: Appliance emptied and changed by patient today with guidance from this technical proposal writer. Stoma red and budded, bridge removed by JUSTA Rivera this morning on rounds. Peristomal skin proximally slightly red, no drainage. Showed patient how to apply
stoma powder then skin prep before applying wafer. Also used stoma paste around cut out opening of wafer, showed how to apply, patient able to do all the above on own. Reviewed skin care with patient and instructed if rash becomes worse can use
fungal powder over the counter, instead of stoma powder. Plenty of supplies at bedside, patient expected to leave to SNF later today. Patient states she feels comfortable enough changing pouch and with practice will be ok when discharged from SNF,
does not want VN at this time. Reminded patient that she can call ostomy nurse when home if any questions. Reviewed how to order monthly supplies, shown list in folder. Nurse aware of the above and will sign off.
[2023-11-26 11:40] VITALS: BP 110/57
--- NOTE | 2023-11-26 14:02 | CM ---
Reviewed the chart notes and spoke with the patient at the bedside. [facility] has accepted the patient. The patient's sister will transport to the facility.
Plan: Discharge to [facility].
Call report to: [phone]
Fax report to: [phone]
--- NOTE | 2023-11-26 14:07 | W.DS.TRANS ---
DC Summary - Sailor
-
Discharge Instructions:
Discharge Diagnosis/Procedures 11/12/2023- Robotic low anterior resection with
takedown of splenic flexure, intracorporeal
anastomosis, and diverting loop ileostomy
11/25/2023- Cardioversion
Diet Regular
Additional Diets Daily fiber supplement (if can tolerate)
Activity No strenuous activity
Additional Activity Do not lift over 10lbs (gallon of milk)
Driving Restrictions No driving for 1 week
Bathing Restrictions OK to Shower
Blood Work Thyroid function test in 3 months (your primary
care physician will need to order)
Others Tests Chest x-ray- 6 months-on amiodarone (your
order to delivery supervisor will order)
Wound Care Cover KAITLIN drain site with a gauze and tape until
seals up, usually 5-7 days from removal.
Allow dermabond (glue) to naturally fall off
from incisions. Do not pick at incisions.
Instructions: Living with an ileostomy
Stand-Alone Forms:
Changes to Home Medications: Yes
Discharge Medications:
DC Medications w/original date entered in [employer]
Biotin (B7) 1 tab PO QPM Supplement 09/25/23
cyanocobalamin (vitamin B-12) 1,000 mcg tablet (Vitamin B-12) 1,000 mcg PO QPM Supplement ##0 09/25/23
loperamide 2 mg capsule 2 mg PO BID diarrhea 09/25/23
pantothenic acid (vit B5) 1 tab PO QPM Supplement 09/25/23
sertraline 50 mg tablet 50 mg PO QPM Depression 09/25/23
vitamin B complex 1 tab PO QPM Supplement 09/25/23
amiodarone 200 mg tablet (Pacerone) 200 mg PO DAILY 30 days #30 tabs 11/26/23
apixaban 5 mg tablet (Eliquis) 5 mg PO BID 30 days #60 tabs 11/26/23
Home Medication Changes
amiodarone 200 mg tablet (Pacerone) 200 mg PO DAILY 30 days #30 tabs 11/26/23
apixaban 5 mg tablet (Eliquis) 5 mg PO BID 30 days #60 tabs 11/26/23
Pending Results: Yes
Additional Pending Results:
OR pathology
[2023-11-26 16:30] VITALS: BP 113/55
== END 2023-11-26 20:00 | DRG 329 ==
LOC: 2 NORTH 13:08
PROVIDERS: Internal Medicine; Internal Medicine Cardiovascular Disease; Nurse Practitioner Family; Nurse Practitioner Primary Care; Physician Assistant; Surgery; ADMITTING PHYSICIAN Surgery; CONSULT PHYSICIAN Internal Medicine Critical Care Medicine; FAMILY PHYSICIAN Student in an Organized Health Care Education/Training Program; OTHER PHYSICIAN Hospitalist
PROC: 30233N1 Transfusion of Nonautologous Red Blood Cells into Peripheral Vein, Percutaneous Approach (ICD-10-PCS; 2023-11-11)
PROC: 0D1B4Z4 Bypass Ileum to Cutaneous, Percutaneous Endoscopic Approach (ICD-10-PCS; 2023-11-12)
PROC: 0DTP4ZZ Resection of Rectum, Percutaneous Endoscopic Approach (ICD-10-PCS; 2023-11-12)
PROC: 8E0W4CZ Robotic Assisted Procedure of Trunk Region, Percutaneous Endoscopic Approach (ICD-10-PCS; 2023-11-12)
PROC: 0DTN4ZZ Resection of Sigmoid Colon, Percutaneous Endoscopic Approach (ICD-10-PCS; 2023-11-12)
PROC: 5A09357 Assistance with Respiratory Ventilation, Less than 24 Consecutive Hours, Continuous Positive Airway Pressure (ICD-10-PCS; 2023-11-12)
PROC: 02HV33Z Insertion of Infusion Device into Superior Vena Cava, Percutaneous Approach (ICD-10-PCS; 2023-11-19)
PROC: 3E0436Z Introduction of Nutritional Substance into Central Vein, Percutaneous Approach (ICD-10-PCS; 2023-11-19)
PROC: B24BZZ4 Ultrasonography of Heart with Aorta, Transesophageal (ICD-10-PCS; 2023-11-25)
PROC: 5A2204Z Restoration of Cardiac Rhythm, Single (ICD-10-PCS; 2023-11-25)
DX: C20 Malignant neoplasm of rectum (principal); D61.810 Antineoplastic chemotherapy induced pancytopenia; J95.821 Acute postprocedural respiratory failure; D62 Acute posthemorrhagic anemia; I50.32 Chronic diastolic (congestive) heart failure; C77.2 Secondary and unspecified malignant neoplasm of intra-abdominal lymph nodes; Q21.12 Patent foramen ovale; K91.89 Other postprocedural complications and disorders of digestive system; K56.7 Ileus, unspecified; E87.1 Hypo-osmolality and hyponatremia; I48.0 Paroxysmal atrial fibrillation; L93.0 Discoid lupus erythematosus; R32 Unspecified urinary incontinence; T45.1X5A Adverse effect of antineoplastic and immunosuppressive drugs, initial encounter; F32.A Depression, unspecified; I35.0 Nonrheumatic aortic (valve) stenosis; M19.90 Unspecified osteoarthritis, unspecified site; K66.0 Peritoneal adhesions (postprocedural) (postinfection); N28.1 Cyst of kidney, acquired; E53.8 Deficiency of other specified B group vitamins; E88.09 Other disorders of plasma-protein metabolism, not elsewhere classified; E03.9 Hypothyroidism, unspecified; Y83.6 Removal of other organ (partial) (total) as the cause of abnormal reaction of the patient, or of later complication, without mention of misadventure at the time of the procedure; I71.43 Infrarenal abdominal aortic aneurysm, without rupture; I08.3 Combined rheumatic disorders of mitral, aortic and tricuspid valves; K74.60 Unspecified cirrhosis of liver; Z79.899 Other long term (current) drug therapy; Z87.891 Personal history of nicotine dependence; Z92.3 Personal history of irradiation
CPT/HCPCS: 88304; 88309; 71045; 74018; 80048; 80053; 82570; 82805; 82962; 83735; 84100; 84478; 85014; 85018; 85025; 85027; 85730; 86304; 86850; 86900; 86901; 86920; 86927; 88341; 88342; 92960; 93005; 93312; 93320; 93325; 94660; 97116; 97163; 97167; 97530; 97535; J1335; J2997; P9016

== ENCOUNTER → 2023-12-25 13:14 | Outpatient (REF) | payer MEDICARE, SELFPAY ==
[2023-12-25 14:08] LABS: % Basophils 0.9 % (0-2); % Eosinophils 1.8 % (0-6); % Immature Granulocytes 0.2 % (0-0.5); % Lymphocytes 13.2 % (20.5-51.1); % Monocytes 8.5 % (1.7-9.3); % Neutrophils 75.4 % (42.2-75.2); Absolute Eosinophils 0.1 10^3/uL (0-0.7); Absolute Lymphocytes 0.6 10^3/uL (1.2-3.4); Absolute Monocytes 0.4 10^3/uL (0.1-0.6); Absolute Neutrophils 3.3 10^3/uL (1.4-6.5); Hemoglobin 11.6 g/dL (12.0-16.0); Mean Corp Hgb Conc. 35.2 g/dL (33.0-37.0); Mean Corpuscular Volume 88.2 fL (81.0-99.0); Mean Platelet Volume 11.7 fL (7.4-10.4); Nucleated Red Blood Cells % 0 %; Platelet Count 144 10^3/uL (130-400); Red Blood Cell Count 3.74 10^6/uL (4.20-5.40); Red Cell Dist. Width 16.2 % (11.5-14.5); White Blood Cell Count 4.3 10^3/uL (4.8-10.8)
[2023-12-25 14:35] LABS: Blood Urea Nitrogen 41 mg/dl (7-17); Calcium 10.1 mg/dl (8.4-10.2); Carbon Dioxide 19 mmol/L (22-30); Chloride 109 mmol/L (98-107); Glucose 83 mg/dl (70-99); Potassium 4.3 mmol/L (3.5-5.1); Sodium 138 mmol/L (135-145); eGFR 42.35
== END ==
LOC: REG 13:14
PROVIDERS: ATTENDING PHYSICIAN Surgery; FAMILY PHYSICIAN Student in an Organized Health Care Education/Training Program; OTHER PHYSICIAN Internal Medicine Cardiovascular Disease; OTHER PHYSICIAN Internal Medicine Hematology & Oncology
DX: C20 Malignant neoplasm of rectum (principal)
CPT/HCPCS: 36415; 80048; 85025

== ENCOUNTER → 2024-01-15 13:15 | Outpatient (REF) | payer MEDICARE, SELFPAY ==
--- NOTE | 2024-01-06 13:18 | W.DCSUMMARY ---
Discharge Summary
Discharge Data
Date of Admission: 11/11/23
Date of Discharge: 11/26/23
-
Pending Results: No
Hospital Course
78-year-old female presented to [facility] on 11/11/2023 as a direct admission for scheduled surgery. She was diagnosed in February 2023 with a stage IIIb mid rectal cancer that straddled the peritoneal reflection. She received chemoradiation she
completed on 05/03/2023. She completed her 7 out of 9 FOLFOX cycle on 10/02/2023. She is continuously rectally bleeding and received multiple transfusions and underwent a colonoscopy with APC treatment by Dr. Tenorio on 11/05/2023 despite that she
continued to bleed. She was direct admitted to undergo surgery the following day. The patient underwent a robotic low anterior resection with takedown of splenic flexure and intracarpal anastomosis and diverting loop ileostomy by Dr. Morris
Jona on 11/12/2023. The following day she was out of bed she was started on clear liquid diet Lovenox was started for DVT prophylaxis. Overnight she developed rapid A-fib and cardiology placed her on a Cardizem drip. Initially had been removed on
postop day 2 but due to increased KAITLIN drain output and diminished urine output, on postop day 3 the Regan went back in. KAITLIN drain creatinine was sent and was consistent with serum. Heparin drip was started per cardiology due to A-fib. An NG tube
was placed. Today for due to nausea. She underwent a clamping trial which failed 2 days later. On postop day 7 the patient was started on a TPN and a PICC was ordered. On postop day 8 she underwent a successful NG tube clamping trial. She was
started on clears the following day. Her diet was slowly advanced to a low residue diet. Cardiology converted her from heparin drip to Eliquis on postop day 12. She underwent a TRACI by cardiology. Due to high ileostomy output she was started on
Imodium. On postop day 14 he was determined the patient be discharged to rehab. All discharge directions were discussed with patient including medication 2000 follow-up. All questions were answered.
Discharge Plan
-
Referrals:
Allyson Marie DO [Family Provider] -
Prescriptions:
No Action
loperamide 2 mg Capsule
2 mg PO BID
cyanocobalamin (vitamin B-12) [Vitamin B-12] 1,000 mcg Tablet
1,000 mcg PO QPM Qty: 0
vitamin B complex Tablet
1 tab PO QPM
sertraline 50 mg Tablet
50 mg PO QPM
Biotin (B7)
1 tab PO QPM
pantothenic acid (vit B5)
1 tab PO QPM
amiodarone [Pacerone] 200 mg Tablet
200 mg PO DAILY 30 Days Qty: 30 0RF
Eliquis 5 mg Tablet
5 mg PO BID 30 Days Qty: 60 0RF
Discharge Date and Time
Print Language: CITIZEN [place]
[2024-01-15 15:38] LABS: ALT (SGPT) 25 U/L (0-35); AST (SGOT) 34 U/L (14-36)
[2024-01-15 16:09] LABS: TSH Reflex To Free T4 < 0.02 uIU/ml (0.47-4.68)
[2024-01-15 16:37] LABS: Free T4 3.43 ng/dl (0.78-2.19)
== END ==
LOC: RCS 13:15
PROVIDERS: ATTENDING PHYSICIAN Internal Medicine Cardiovascular Disease; FAMILY PHYSICIAN Family Medicine
DX: I48.0 Paroxysmal atrial fibrillation (principal); I48.91 Unspecified atrial fibrillation; D64.9 Anemia, unspecified; K92.2 Gastrointestinal hemorrhage, unspecified
CPT/HCPCS: 36415; 84439; 84443; 84450; 84460; 93306

== ENCOUNTER → 2024-01-28 13:45 | Outpatient (REF) | payer MEDICARE, SELFPAY ==
[2024-01-28 14:40] LABS: % Basophils 0.3 % (0-2); % Eosinophils 0.8 % (0-6); % Immature Granulocytes 0.8 % (0-0.5); % Lymphocytes 6.9 % (20.5-51.1); % Monocytes 6.3 % (1.7-9.3); % Neutrophils 84.9 % (42.2-75.2); Absolute Eosinophils 0.1 10^3/uL (0-0.7); Absolute Immature Granulocytes 0.1 10^3/uL (0-0.05); Absolute Lymphocytes 0.4 10^3/uL (1.2-3.4); Absolute Monocytes 0.4 10^3/uL (0.1-0.6); Absolute Neutrophils 5.3 10^3/uL (1.4-6.5); Hematocrit 31.2 % (37.0-47.0); Hemoglobin 10.5 g/dL (12.0-16.0); Mean Corp Hgb Conc. 33.7 g/dL (33.0-37.0); Mean Corpuscular Hgb 30.9 pg (27.0-31.0); Mean Corpuscular Volume 91.8 fL (81.0-99.0); Mean Platelet Volume 10.9 fL (7.4-10.4); Nucleated Red Blood Cells % 0 %; Platelet Count 130 10^3/uL (130-400); White Blood Cell Count 6.2 10^3/uL (4.8-10.8)
[2024-01-28 15:14] LABS: ALT (SGPT) 24 U/L (0-35); AST (SGOT) 28 U/L (14-36); Albumin 3.8 g/dl (3.5-5.0); Alkaline Phosphatase 101 U/L (38-126); Blood Urea Nitrogen 45 mg/dl (7-17); Calcium 10.1 mg/dl (8.4-10.2); Carbon Dioxide 21 mmol/L (22-30); Chloride 111 mmol/L (98-107); Glucose 73 mg/dl (70-99); Potassium 4.3 mmol/L (3.5-5.1); Sodium 139 mmol/L (135-145); Total Bilirubin 0.4 mg/dl (0.2-1.3); Total Protein 6.6 g/dl (6.3-8.2); eGFR 42.35
[2024-01-28 15:31] LABS: Free T3 1.54 pg/ml (2.77-5.27); Free T4 0.73 ng/dl (0.78-2.19)
[2024-01-28 15:45] LABS: TSH 0.19 uIU/ml (0.47-4.68)
[2024-01-30 15:59] LABS: Thyroid Peroxidase Ab (TPO) 4.9 IU/mL (0.0-9.0)
[2024-01-30 18:39] LABS: Thyroglobulin 5.2 ng/mL (1.3-31.8); Thyroglobulin Antibodies <0.9 IU/mL (0.0-4.0)
[2024-01-31 04:13] LABS: TSH Receptor Antibody 1.16 IU/L (<=1.75)
[2024-01-31 04:53] LABS: Thyroid Stim. Immunoglobulin 0.58 IU/L (<=0.54)
== END ==
LOC: REG 13:45
PROVIDERS: ATTENDING PHYSICIAN Internal Medicine Endocrinology, Diabetes & Metabolism; FAMILY PHYSICIAN Surgery
DX: Z48.89 Encounter for other specified surgical aftercare (principal); E05.90 Thyrotoxicosis, unspecified without thyrotoxic crisis or storm
CPT/HCPCS: 36415; 80053; 83520; 84432; 84439; 84443; 84445; 84481; 85025; 86376; 86800

== ENCOUNTER 2024-02-04 09:49 | Day surgery (SDC) | payer MEDICARE, SELFPAY ==
[2024-02-04] VITALS (24 sets, daily range): BP systolic 61–116; BP diastolic 35–82; BMI 24.3
[2024-02-04 10:50] LABS: % Basophils 0.1 % (0-2); % Eosinophils 0.1 % (0-6); % Immature Granulocytes 0.8 % (0-0.5); % Monocytes 3.1 % (1.7-9.3); % Neutrophils 92.9 % (42.2-75.2); Absolute Immature Granulocytes 0.1 10^3/uL (0-0.05); Absolute Lymphocytes 0.3 10^3/uL (1.2-3.4); Absolute Monocytes 0.3 10^3/uL (0.1-0.6); Absolute Neutrophils 8.8 10^3/uL (1.4-6.5); Hematocrit 26.9 % (37.0-47.0); Hemoglobin 9.2 g/dL (12.0-16.0); Mean Corp Hgb Conc. 34.2 g/dL (33.0-37.0); Mean Corpuscular Hgb 31.9 pg (27.0-31.0); Mean Corpuscular Volume 93.4 fL (81.0-99.0); Mean Platelet Volume 11.1 fL (7.4-10.4); Nucleated Red Blood Cells % 0 %; Platelet Count 117 10^3/uL (130-400); Red Blood Cell Count 2.88 10^6/uL (4.20-5.40); Red Cell Dist. Width 16.2 % (11.5-14.5); White Blood Cell Count 9.4 10^3/uL (4.8-10.8)
[2024-02-04] MEDS: NSS 181 ML IV (10:55)
[2024-02-04] MEDS: NSS 90 IV (12:18)
[2024-02-04] MEDS: LOPRESSOR 12.5 MG PO (12:18)
--- NOTE | 2024-02-04 13:10 | ITS.CL.CATH ---
[employer] - Catheterization
Cardiac Catheterization
Procedure Report:
CARDIAC CATHETERIZATION REPORT
Date of Procedure: 02/04/2024
Referring: Joao Torres MD
Indication: Severe aortic stenosis
�
HEMODYNAMIC DATA
AO: 100/60
LV: 138/15
Patient is in atrial fibrillation. Using multiple windows, there is a mean gradient of approximately 44 mmHg across the aortic valve
�
LEFT VENTRICULOGRAPHY: Not performed
�
CORONARY ANGIOGRAPHY
Dominance: Left
Left Main: Normal
LAD: Trivial luminal irregularities
Circumflex: Trivial luminal irregularities
RCA: Nondominant vessel with 80-90% mid stenosis
�
Closure Device: None-the procedure was performed via the right radial artery
�
Radiation (mGy): 139
DAP (cm2.Gy): 12.5
Fluoroscopy time: 2.3 minutes
�
CONCLUSIONS
1:�Severe aortic stenosis with mean gradient 44 mmHg-this is an approximation as the patient is in atrial fibrillation
2:�Single-vessel CAD with 80-90% stenosis in the midportion of a nondominant RCA. This will be treated medically.
3. Continue with TAVR evaluation
�
�
Copy to: Joao Torres MD, Allyson Marie MD
Cory Knight MD, [facility]
�
--- NOTE | 2024-02-04 14:54 | CONSULT.STRU ---
Addendum entered and electronically signed by TIGIST Jean-Baptiste 02/07/24 11:02:
Patient reviewed by the heart team at the SDM meeting. Team agreed that TAVR is the appropriate treatment for her severe utilizing a 29mm Evolut valve via right transfemoral access.
Original Note:
Consultation
-
Date/Time Consultation Requested: 02/04/2024
Date/Time Consultation Performed: 02/04/2024
Requesting Provider: Cory Knight MD
Performing Provider: TIGIST Jean-Baptiste
Reason for Consultation: Aortic stenosis/TAVR evaluation
Patient History
Physicians
Family Physician: Allyson Marie
Outpatient Locomotive Observer: Joao Torres
Primary Locomotive Observer: Joao Torres
History of Present Illness
Patient is a pleasant 78yo female with past medical history significant for CAD, paroxysmal A-fib and rectal cancer s/p Chemo/XRT/ Surgery with Anemia. She presents today for her cardiac cath as part of her aortic stenosis evaluation. Her echo on
01/14 was notable for EF 65-70%, MAC with moderate MR, AV PG/M/79, JEAN CLAUDE: 0.7, moderate MR. Cardiac cath today demonstrates Severe aortic stenosis with mean gradient 44 mmHg-this is an approximation as the patient is in atrial fibrillation.
Single-vessel CAD with 80-90% stenosis in the midportion of a nondominant RCA. This will be treated medically. She denies shortness of breath only when she had come in to the hospital with severe anemia and a HGB of 5. She states the SOB resolved
immediately after she received 2 units of blood. She does complain of extreme fatigue. She denies chest pain, palpitations, PND, orthopnea or edema.
Reviewed the pathophysiology of aortic stenosis with the patient and her sister. Explained the treatment options of SAVR and TAVR. Explained the TAVR evaluation process CT TAVR scan (which she had already), CT surgery consult and Heart Team
discussion. Consult appointment with Dr. Bain and a copy of the TAVR education booklet with contact information. Allowed for and answered questions. Patient is aware she will need dental clearance prior to her procedure. She has not been to the
dentist in several years but will work on getting an appointment this week.
Past Medical History
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
18, OA of bilateral knees)
Past Surgical History
Past Surgical History: Appendectomy, Tonsilectomy and Other (lower anterior resection with ileostomy 11/2023, laparoscopic drainage of ovarian cyst and tubal ligation, history of GI bleed, h/o anemia)
Dental History
Has not seen a dentist in year. Will make an appt with [facility].
Family History
Mother: at Age and Cause of (stroke)
Father: at Age
Family Medical History: Cancer (leukemia, lung cancer)
Social History
Alcohol: Occasional
Drug: None
Tobacco: Former Smoker (quit 14 years ago)
Personal: Single
Allergies
Allergy/AdvReac Type Severity Reaction Status Date / Time
Penicillins Allergy Hives Verified 02/04/24 10:13
Home Medications
�Medication �Instructions �Recorded �Confirmed �Type
cyanocobalamin (vitamin B-12) 1,000 mcg PO 1300 Supplement ##0 09/25/23 02/04/24 History
1,000 mcg tablet (Vitamin B-12)
pantothenic acid (vit B5) 1 tab PO 1300 Supplement 09/25/23 02/04/24 History
sertraline 50 mg tablet 50 mg PO QPM Depression 09/25/23 02/04/24 History
vitamin B complex 1 tab PO 1300 Supplement 09/25/23 02/04/24 History
apixaban 5 mg tablet (Eliquis) 5 mg PO BID 30 days #60 tabs 11/26/23 02/04/24 Rx
amiodarone 100 mg tablet 100 mg PO Q OTHER DAY #0 tabs 02/04/24 02/04/24 Rx
amiodarone 200 mg tablet 200 mg PO Q OTHER DAY #1 tab 02/04/24 Rx
ascorbic acid (vitamin C) 1,000 mg 1 g PO DAILY 02/04/24 02/04/24 History
tablet (Vitamin C)
biotin 10,000 mcg capsule 10,000 mcg PO 1300 02/04/24 02/04/24 History
calcium 333 mg-D3 8.3 1 cap PO 1300 02/04/24 02/04/24 History
mcg-magnesium ox 116.7
jh-U-P-minerals capsule (BoneUp)
collagen-hyaluronic 1 cap PO 1300 02/04/24 02/04/24 History
tgbg-ojgqvvjdlg-nunw extract 515
mg capsule
fatty acid comb#3-vit E-salmon 1 cap PO 1300 02/04/24 02/04/24 History
oil-soybean oil capsule
magnesium glycinate 275 mg PO HS 02/04/24 02/04/24 History
melatonin 2.5 mg/10 mL oral liquid 10 mg PO HS 02/04/24 02/04/24 History
methimazole 10 mg tablet 10 mg PO DAILY 02/04/24 02/04/24 History
cjxqslgc-wiiv-gtjsr acid 240 1 tab PO 129902/04/24 02/04/24 History
mcg-vit K 120 tgo-btdpxr-qmen 293
tablet (Alive Women's 50 Plus
(fruit-veg blend))
prednisone 10 mg tablet 10 mg PO BID 02/04/24 02/04/24 History
quercetin 500 mg capsule 500 mg PO 1300 02/04/24 02/04/24 History
STS%
STS %: 4.46%
Review of Systems
-
History Source: Patient
General: Reports Fatigue and Sleep Disturbance
HEENT: Reports No Symptoms
Respiratory: Reports No Symptoms; Denies SOB, ROMERO, Cough or PND
Cardiac: Reports No Symptoms; Denies Palpitations or Edema
Abdomen/GI: Reports Diarrhea (ileostomy) and Other (history of GI bleeding)
: Reports No Symptoms; Denies Frequency, Incontinence or Urgency
Musculoskeletal: Reports Joint Pain (bilateral knees)
Skin: Reports No Symptoms
Neurological: Reports No Symptoms
Vascular: Reports No Symptoms
Physical Exam
Vital Signs
Temp 97.8 F 02/04/24 11:55
Temp route: Oral 02/04/24 11:55
Pulse 102 02/04/24 14:46
Blood pressure 83/53 02/04/24 14:46
Blood pressure extremity used: Left upper arm 02/04/24 14:40
Position: Sitting 02/04/24 14:40
MAP (cuff-Heather Monitor) 63 02/04/24 14:46
SaO2 98 02/04/24 14:46
Oxygen Mode of Delivery Room air 02/04/24 14:40
Can the patient verbally communicate their pain? Yes 02/04/24 14:40
Actual Weight 60.3 kg 02/04/24 10:35
Body Mass Index (BMI) 24.3 02/04/24 10:35
Labs
02/04/24 10:44
Diagnostic Studies
Echocardiogram 01/15/2024:
CONCLUSIONS
Normal left ventricular size with severe concentric hypertrophy and normal
systolic function. No regional wall motion abnormalities are seen. LV ejection
fraction is 65-70% by Goff's method of discs. Stage II diastolic dysfunction
suggestive of abnormal relaxation and increased filling pressures.
Normal right ventricular size and function.
Severe left atrial dilation.
Mild right atrial dilation.
Mitral annular calcification with extension onto the anterior mitral leaflet.
Moderate mitral regurgitation.
Thickened aortic valve with restricted leaflet motion, critical aortic stenosis
and moderate regurgitation.
Color flow pattern suggestive of small PFO.
Mild pulmonary hypertension. PASP estimated 44 mmHg.
No significant change since the prior study of 08/05/2023.
As per [place] Act 112, known as Patient Test Result Information Act, a letter will
be sent to the patient, which notifies to the patient that a significant
abnormality may exist. A letter will be sent approximately 10 days after the
echo report is finalized.
Indications:
Paroxysmal atrial fibrillation, Nonrheumatic aortic (valve) stenosis
Rhythm: Sinus
Portable Study: No
Technical Quality: Good
Contrast: None
BP: 110 / 68
PROCEDURE
A complete Transthoracic Echocardiogram was performed utilizing two-dimensional
evaluation with color flow and spectral Doppler analysis.
FINDINGS
Left Ventricle
Normal left ventricular size with severe concentric hypertrophy and normal
systolic function. No regional wall motion abnormalities are seen. LV ejection
fraction is 65-70% by Goff's method of discs. Stage II diastolic dysfunction
suggestive of abnormal relaxation and increased filling pressures.
Right Ventricle
Normal right ventricular size and function.
Left Atrium
Indexed LA volume is severely abnormal (> 48 mL/m2).
Right Atrium
Mildly dilated right atrium.
Mitral Valve
Mitral annular calcification with extension onto the anterior mitral leaflet.
Mitral valve opens normally. Thickened mitral valve leaflets. Moderate mitral
regurgitation.
Aortic Valve
Thickened aortic valve with restricted leaflet motion, critical aortic stenosis
and moderate regurgitation. The peak gradient across the valve is 126 mmHg
with a mean of 79 mmHg. Using a LVOT diameter of 2.0 cm, the JEAN CLAUDE is 0.7 cm sq.
Tricuspid Valve
Tricuspid valve opens normally. Mild tricuspid regurgitation. Estimated
pulmonary artery pressure of 44 mmHg assuming a right atrial pressure of 3
mmHg.
Pulmonic Valve
Structurally normal pulmonic valve. Trace pulmonic regurgitation.
Pericardium\\Pleura
Normal pericardium without effusion.
Aorta
The aortic root is of normal size. Normal ascending aorta.
Other Finding
The IVC is of normal size and demonstrates normal respiratory variation. Color
flow pattern suggestive of small PFO.
MEASUREMENTS (Male / Female) Normal Values
2D ECHO
LV Diastolic Diameter PLAX 5.5 cm 4.2 - 5.9 / 3.9 - 5.3 cm
LV Systolic Diameter PLAX 3.6 cm
IVS Diastolic Thickness 1.1 cm 0.6 - 1.0 / 0.6 - 0.9 cm
LVPW Diastolic Thickness 1.1 cm 0.6 - 1.0 / 0.6 - 0.9 cm
LV Relative Wall Thickness 0.4
LVOT Diameter 2.0 cm
LV Ejection Fraction MOD BP 69.4 % >= 55 %
LV Stroke Volume MOD BP 68.0 cm3
LV Stroke Volume MOD 4C 72.0 cm3
LV Stroke Volume 4C AL 73.2 cm3
LV Stroke Volume MOD 2C 64.0 cm3
LV Stroke Volume 2C AL 65.5 cm3
LA Area 4C View 28.7 cm2 <= 20 cm2
LA Length 4C 6.4 cm
LA Volume 104.0 cm3 18 - 58 / 22 - 52 cm3
LA Volume Index 64.6 cm3/m2 16 - 34 cm3/m2
Ascending Aorta Diameter 3.7 cm
M-MODE
Aortic Root Diameter MM 3.2 cm
LA Systolic Diameter MM 6.3 cm
LA Ao Ratio MM 2.0
DOPPLER
AV Peak Velocity 561.0 cm/s
AV Peak Gradient 125.9 mmHg
AV Mean Gradient 79.0 mmHg
AV Velocity Time Integral 140.3 cm
AI Peak Velocity 415.5 cm/s
AI Peak Gradient 69.1 mmHg
AI Pressure Half Time 378.0 ms
LVOT Peak Velocity 125.0 cm/s
LVOT Peak Gradient 6.3 mmHg
LVOT Velocity Time Integral 34.0 cm
LVOT Stroke Volume 106.7 cm3
LVOT Stroke Volume Index 65.9 ml/m2 empty
AV Area Cont Eq vti 0.8 cm2
AV Area Cont Eq pk 0.7 cm2
Mitral E Point Velocity 120.0 cm/s
Mitral A Point Velocity 86.9 cm/s
Mitral E to A Ratio 1.4
LV E' Lateral Velocity 5.4 cm/s
Mitral E to LV E' Lateral Ratio 22.4
LV E' Septal Velocity 4.2 cm/s
Mitral E to LV E' Septal Ratio 28.6
TR Peak Velocity 271.0 cm/s
TR Peak Gradient 29.4 mmHg
Cardiac Catheterization 02/04/2024:
HEMODYNAMIC DATA
AO: 100/60
LV: 138/15
Patient is in atrial fibrillation. Using multiple windows, there is a mean gradient of approximately 44 mmHg across the aortic valve
�
LEFT VENTRICULOGRAPHY: Not performed
�
CORONARY ANGIOGRAPHY
Dominance: Left
Left Main: Normal
LAD: Trivial luminal irregularities
Circumflex: Trivial luminal irregularities
RCA: Nondominant vessel with 80-90% mid stenosis
�
Closure Device: None-the procedure was performed via the right radial artery
�
Radiation (mGy): 139
DAP (cm2.Gy): 12.5
Fluoroscopy time: 2.3 minutes
�
CONCLUSIONS
1:�Severe aortic stenosis with mean gradient 44 mmHg-this is an approximation as the patient is in atrial fibrillation
2:�Single-vessel CAD with 80-90% stenosis in the midportion of a nondominant RCA. This will be treated medically.
3. Continue with TAVR evaluation
�
Exam
General: Well Developed and No Apparent Distress
HEENT: Normocephalic, Moist Mucous Membranes and PERRLA
Neck: Trachea Midline
Respiratory: Clear; Negative Wheezes, Crackles or Rhonchi
Cardiac: Irregular Rhythm (afib, RVR on telemetry) and Murmur (Grade II/)
GI: Soft, Non Tender, Normal Bowel Sounds and Other (ileostomy with pink stoma, liquid stool output)
Rectal: Deferred by Provider
Skin: Warm and Dry
Neuro: AO x 3 and Nonfocal/Grossly Intact
Extremities: Pulses (+1 bilateral DP pulses); Negative Lower Level Edema
Psych: Calm
Assessment / Plan
-
Procedure Type:�Isolated AVR
PERIOPERATIVE OUTCOME ESTIMATE %
Operative Mortality 4.46%
Morbidity & Mortality 14.5%
Stroke 1.43%
Renal Failure 3.18%
Reoperation 5.02%
Prolonged Ventilation 9.02%
Deep Sternal Wound Infection 0.053%
Long Hospital Stay (>14 days) 7.99%
Short Hospital Stay (<6 days)* 27.4%
Severe Aortic stenosis:
��������������� Continue evaluation for TAVR as an outpatient
��������������� CT TAVR completed 11/05/2023
��������������� CT surgery consult with Dr. Bain 02/19/2024
��������������� Heart team discussion at [facility]
Dental Clearance
Data Reviewed
-
EKG: Report Reviewed by me
Reclamation Supervisor: Discussed with Physician
Echo: Report Reviewed by me and Discussed with Physician
Labs: Labs Reviewed by me
Old Records: Reviewed (Cardiology office notes)
Total Time Spent with Patient (in minutes): 20
--- NOTE | 2024-02-04 15:20 | PTCARENOTE ---
Discharge delayed due to low BP. Pt claims that she has had prior responses to metoprolol that resulted in very low BP. Pt mentating well and lying flat in the recliner, talking to her sister.
--- NOTE | 2024-02-04 16:12 | PTCARENOTE ---
Ambulated from bathroom. No dizziness or SOB.
--- NOTE | 2024-02-04 16:15 | PTCARENOTE ---
VS in satisfactory range after ambulating, per Rosita Carrillo.
== END 2024-02-04 16:20 | disposition home or self-care (01) ==
LOC: CATH 09:49
PROVIDERS: Nurse Practitioner Adult Health; ATTENDING PHYSICIAN Internal Medicine Cardiovascular Disease; FAMILY PHYSICIAN Student in an Organized Health Care Education/Training Program; OTHER PHYSICIAN Internal Medicine Cardiovascular Disease
DX: I25.10 Atherosclerotic heart disease of native coronary artery without angina pectoris (principal); I48.0 Paroxysmal atrial fibrillation; I35.0 Nonrheumatic aortic (valve) stenosis; I50.32 Chronic diastolic (congestive) heart failure; Z85.048 Personal history of other malignant neoplasm of rectum, rectosigmoid junction, and anus; Z87.891 Personal history of nicotine dependence; I27.20 Pulmonary hypertension, unspecified; Z79.01 Long term (current) use of anticoagulants
CPT/HCPCS: 85025; 93005; 93458; C1894; Q9967

== ENCOUNTER → 2024-02-11 15:11 | Outpatient (REF) | payer MEDICARE, SELFPAY ==
[2024-02-11 17:47] LABS: Hematocrit 25.9 % (37.0-47.0); Hemoglobin 8.9 g/dL (12.0-16.0); Mean Corp Hgb Conc. 34.4 g/dL (33.0-37.0); Mean Corpuscular Hgb 32.7 pg (27.0-31.0); Mean Corpuscular Volume 95.2 fL (81.0-99.0); Platelet Count 114 10^3/uL (130-400); Red Blood Cell Count 2.72 10^6/uL (4.20-5.40); Red Cell Dist. Width 17.7 % (11.5-14.5); White Blood Cell Count 10.6 10^3/uL (4.8-10.8)
[2024-02-11 18:02] LABS: % Basophils 0.2 % (0-2); % Eosinophils 0.7 % (0-6); % Immature Granulocytes 0.7 % (0-0.5); % Lymphocytes 2.3 % (20.5-51.1); % Monocytes 2.4 % (1.7-9.3); % Neutrophils 93.7 % (42.2-75.2); Absolute Eosinophils 0.1 10^3/uL (0-0.7); Absolute Immature Granulocytes 0.1 10^3/uL (0-0.05); Absolute Lymphocytes 0.2 10^3/uL (1.2-3.4); Absolute Monocytes 0.3 10^3/uL (0.1-0.6); Absolute Neutrophils 9.9 10^3/uL (1.4-6.5); Nucleated Red Blood Cells % 0 %
== END ==
LOC: REG 15:11
PROVIDERS: ATTENDING PHYSICIAN Internal Medicine Cardiovascular Disease; FAMILY PHYSICIAN Surgery
DX: D64.9 Anemia, unspecified (principal)
CPT/HCPCS: 36415; 85025

== ENCOUNTER → 2024-02-14 14:21 | Outpatient (REF) | payer MEDICARE, SELFPAY ==
[2024-02-14 16:18] LABS: % Basophils 0.3 % (0-2); % Eosinophils 0.6 % (0-6); % Immature Granulocytes 0.6 % (0-0.5); % Lymphocytes 2.6 % (20.5-51.1); % Monocytes 2.3 % (1.7-9.3); % Neutrophils 93.6 % (42.2-75.2); Absolute Eosinophils 0.1 10^3/uL (0-0.7); Absolute Immature Granulocytes 0.1 10^3/uL (0-0.05); Absolute Lymphocytes 0.2 10^3/uL (1.2-3.4); Absolute Monocytes 0.2 10^3/uL (0.1-0.6); Absolute Neutrophils 7.3 10^3/uL (1.4-6.5); Hematocrit 25.7 % (37.0-47.0); Hemoglobin 8.4 g/dL (12.0-16.0); Mean Corp Hgb Conc. 32.7 g/dL (33.0-37.0); Mean Corpuscular Hgb 31.6 pg (27.0-31.0); Mean Corpuscular Volume 96.6 fL (81.0-99.0); Mean Platelet Volume 11.1 fL (7.4-10.4); Nucleated Red Blood Cells % 0 %; Platelet Count 149 10^3/uL (130-400); Red Blood Cell Count 2.66 10^6/uL (4.20-5.40); Red Cell Dist. Width 18.1 % (11.5-14.5); White Blood Cell Count 7.8 10^3/uL (4.8-10.8)
[2024-02-14 17:01] LABS: TSH 0.61 uIU/ml (0.47-4.68)
== END ==
LOC: REG 14:21
PROVIDERS: ATTENDING PHYSICIAN Internal Medicine Cardiovascular Disease; REFERRING PHYSICIAN Surgery
DX: D50.9 Iron deficiency anemia, unspecified (principal); E05.90 Thyrotoxicosis, unspecified without thyrotoxic crisis or storm
CPT/HCPCS: 36415; 84439; 84443; 85025

== ENCOUNTER → 2024-02-18 15:21 | Outpatient (REF) | payer MEDICARE, SELFPAY | LOC: RAD 15:21 | PROVIDERS: ATTENDING PHYSICIAN Internal Medicine Endocrinology, Diabetes & Metabolism; OTHER PHYSICIAN Internal Medicine Cardiovascular Disease; OTHER PHYSICIAN Surgery | DX: E05.90 Thyrotoxicosis, unspecified without thyrotoxic crisis or storm (principal) | CPT/HCPCS: 76536 ==

== ENCOUNTER 2024-02-24 22:03 | Inpatient (IN) | payer MEDICARE, SELFPAY ==
[2024-02-24] VITALS (9 sets, daily range): BP systolic 81–105; BP diastolic 55–87; BMI 23.9; BMI 23.7
[2024-02-24 13:13] LABS: % Basophils 0.4 % (0-2); % Eosinophils 1.2 % (0-6); % Immature Granulocytes 2.8 % (0-0.5); % Lymphocytes 4.4 % (20.5-51.1); % Neutrophils 87.2 % (42.2-75.2); Absolute Eosinophils 0.1 10^3/uL (0-0.7); Absolute Immature Granulocytes 0.2 10^3/uL (0-0.05); Absolute Lymphocytes 0.3 10^3/uL (1.2-3.4); Absolute Monocytes 0.3 10^3/uL (0.1-0.6); Absolute Neutrophils 6.6 10^3/uL (1.4-6.5); Hematocrit 26.3 % (37.0-47.0); Hemoglobin 8.7 g/dL (12.0-16.0); Mean Corp Hgb Conc. 33.1 g/dL (33.0-37.0); Mean Corpuscular Volume 93.6 fL (81.0-99.0); Mean Platelet Volume 10.7 fL (7.4-10.4); Nucleated Red Blood Cells % 0 %; Platelet Count 241 10^3/uL (130-400); Red Blood Cell Count 2.81 10^6/uL (4.20-5.40); White Blood Cell Count 7.6 10^3/uL (4.8-10.8)
[2024-02-24 13:29] LABS: INR 1.43; PT 17.3 Sec (11.4-14.6)
[2024-02-24 13:30] LABS: APTT 43.9 Sec (23.4-35.0)
[2024-02-24 13:35] LABS: NT-proBNP 8650 pg/ml
[2024-02-24 13:48] LABS: ALT (SGPT) 20 U/L (0-35); AST (SGOT) 31 U/L (14-36); Albumin 4.2 g/dl (3.5-5.0); Alkaline Phosphatase 103 U/L (38-126); Blood Urea Nitrogen 55 mg/dl (7-17); Calcium 11.5 mg/dl (8.4-10.2); Carbon Dioxide 16 mmol/L (22-30); Chloride 104 mmol/L (98-107); Direct Bilirubin 0.2 mg/dl (0.0-0.4); Glucose 106 mg/dl (70-99); Potassium 3.6 mmol/L (3.5-5.1); Sodium 135 mmol/L (135-145); Total Bilirubin 0.5 mg/dl (0.2-1.3); Total Protein 7.6 g/dl (6.3-8.2); eGFR 23.82
--- NOTE | 2024-02-24 15:26 | CM ---
spoke withpt in PAT's, pt is prev indep, lives alone in an apt with no steps to enter. she has a rollator at home to use if needed. pt being seen by Rosita Barnhart NP and being eval for SOB and AF 140's. pt to be admitted today for medical management
and will get TAVR 02/26. cm role explained and all questions answered.
[2024-02-24 16:26] LABS: Glycohemoglobin (HgbA1c) 4.9 % (4.0-5.6)
--- NOTE | 2024-02-24 19:52 | ED.GENMED ---
History of Present Illness
General
Chief Complaint: Breathing Problem
Source: patient
Exam Limitations: none
Time Seen by Provider: 02/24/24 19:21
History of Present Illness
History of Present Illness:
This is a 78 year old female that comes in stating that she is coming in for admission. States that she was here today for the last testing that is needed before she had her TAVR procedure done on 03/05. Staes that she had a chest x-ray , ECG and
blood work. Patient states that she has not been able to give them a urine yet. States that Rosita the Coordinator for the TAVR called and said that she was to come into the hospital today as they were going to move up her TAVR to this . States
that he was to come to the ER for admission. States that she has been extremely SOB. Denies any fever, chills, chest pain, abd pain, nausea, vomiting, headache, dizziness, urinary burning.
Past History
Past History
ED Past Medical History: Arrthythmia, Cancer, CHF, Hypothyroidism and Other (Aortic stenosis)
ED Past Surgical History: Appendectomy, Tonsilectomy and Other (Laparoscopy with cyst aspiration)
Social History
Tobacco: Former smoker
Alcohol: None
Drug: None
Living: with family
Review of Systems
Review of Systems
All Other Systems: ROS reviewed and negative except as documented in HPI and ROS
Constitutional: Reports no symptoms; Denies fever or chills
EENT: Reports no symptoms
Respiratory: Reports trouble breathing; Denies cough
Cardiac: Reports no symptoms; Denies chest pain
ABD/GI: Denies abdominal pain, nausea or vomiting
: Reports no symptoms; Denies dysuria, frequency or urgency
Musculoskeletal: Reports no symptoms
Skin: Reports no symptoms
Neurological: Reports no symptoms; Denies dizzy or headache
Psychiatric: Reports no symptoms
Phy Exam
General Physical Exam
General Presentation: well appearing and no apparent distress
General age: appears stated age
General Skin: warm and dry
General Habitus: elderly
General Mental: alert
General Hydration: appears well hydrated
ENT Exam
ENT Exam: TM's normal, pharynx normal and neck supple
Eye Exam
Eye Exam: EOMI
Cardiovascular Exam
Cardiovascular Exam: no edema, normal peripheral pulses, irregularly irregular and other (Murmur)
Pulmonary Exam
Pulmonary Exam: lungs clear, no respiratory distress, no rales, chest non tender, no crackles, no rhonchi, no wheezing and no cough
Gastrointestinal Exam
Gastrointestinal Exam: normal bowel sounds, non tender, soft, no organomegaly, no pulsatile mass and non distended
External Findings: ileostomy
Musculoskeletal Exam
Musculoskeletal Exam: full ROM and no edema
Skin Exam
Skin Exam: normal color, warm/dry, no rash and no petechia
Psychiatric Exam
Psychiatric Exam: normal mood/affect
Scores
Heart Failure Risk
Heart Failure Risk Score: Not Applicable
Course
Orders/Labs/Results
Orders:
Orders
02/24/24 Breakfast
Sodium, 2 Gram
02/24/24 17:22
ECG [Electrocardiogram (*1)] Urgent
Reason for Study: Shortness of Breath
EKG- Treatment ONCE
02/24/24 21:00
Admit/Transfer Patient As Directed
Co-Sign Provider:
Level of Care: Inpatient admission
Assign to:: [facility]
Physician / Group: Rachel
Diagnosis: Afib with RVR; Severe
Reason for Hospitalization: Amiodarone, Severe
Expected length of stay greater than two midnights?: Yes
ELOS- Estimated Length of Stay in days: 3
I certify the patient meets the requirements for IP care: Yes
Amiodarone [Cordarone] 900 mg DEXTROSE 5% PVC-free BAG [D5W PVC-free BAG] 500 ml IV PER PROTOCOL
Initial Dose in mg/min:: 1
Duration of initial dose (hours):: 6
Subsequent dose in mg/min:: 0.5
Duration of subsequent dose (hours):: 18
Maximum dose in mg/min:: 1
Hold and notify provider if:: Heart rate < 60 BPM or SBP < 90 mmHg or MAP < 60 mmHg
02/24/24 21:01
PRN Pain Medication Management As Directed
May give lesser potent ordered pain med per pt: Yes
preference::
Protocol:: Medication orders for pain may be administered in a
manner that supports deferring to patient preference
when the pt is:
- Requesting an ordered lesser potent pain medication.
Least to most potent pain medications are defined
as: acetaminophen < NSAID < tramadol < opioids
(morphine, oxycodone, hydromorphone).
- Requesting a lesser dose of the same medication IF
ORDERED.
- Requesting a less intrusive route of administration
if both routes are prescribed by the provider (PO <
IV).
02/24/24 21:02
Code Status As Directed
Resuscitation Status: Full Code
02/24/24 21:12
Add On- LAB Routine
Tests Added?: iron, ferritin, tibc, folate, vit B12
02/24/24 22:00
0.9% Sodium Chloride 500 ml [Nss] 500 ml IV 50 mls/hr
Flush (0.9% Sodium Chloride) [Flush (Nss)] See Dose Instructions IV PER PROTOCOL
02/24/24 23:28
Acetaminophen [Tylenol] 650 mg PO Q4HPRN PRN
02/24/24 23:28
CARDIOLOGY CONSULT Routine
Consulting Provider: Ramiro Cox
Was physician already notified: Yes
Activity As Directed
Activity Level: Out of Bed- Chair
I&O [Intake/ Output] As Directed
Frequency: q12h
Vital Signs As Directed
Frequency: Per unit guidelines
Weight As Directed
Frequency: Daily
02/25/24 06:00
Basic Metabolic Panel IN AM
Complete Blood Count/No Diff IN AM
Ferritin IN AM
Folate IN AM
Iron IN AM
Magnesium IN AM
Total Iron Binding IN AM
Vitamin B12 IN AM
02/25/24 08:00
Amiodarone [Pacerone] 200 mg PO Q48H
Apixaban [Eliquis] 5 mg PO BID
02/25/24 13:00
Methimazole [Tapazole] 10 mg PO DAILY@1300
02/26/24 08:00
Amiodarone [Pacerone] 100 mg PO Q48H
Labs drawn at 12:37 today. WBC 7.56, RBC 2.81 , H/H 8.7/26.3, Plt 241, NA 135, Potassium 3.6, Chloride 104, Carbon dioxide 16, BUN 55, CR 2.1, GFR 23.82, Glucose 106, Calcium 11.5, Total geronimo 0.5, Direct geronimo 0.2, AST 31, ALT 20, Alk phos 103,
Pro-BNP 8650, Total protein 7.6. Albumin 4.2
Vital Signs
Initial and Last Documented VS:
Initial Vital Signs
Temp Pulse Resp BP Pulse Ox
98.1 F 129 20 97/57 98
02/24/24 17:17 02/24/24 17:17 02/24/24 17:17 02/24/24 17:17 02/24/24 17:17
Last Documented Vital Signs
Temp Pulse Resp BP Pulse Ox
98.1 F 73 18 85/68 99
02/25/24 00:00 02/25/24 02:11 02/25/24 02:11 02/25/24 02:11 02/25/24 00:00
MDM/Problems Addressed
Differential Diagnosis Includes:
Uncontrolled atrial fib. CHF
MDM/Problems Addressed:
This is a 78 year old female that comes in with c/o increased SOB. Stats that she was here during the day and had her Final work up for her TAVR procedure that was scheduled for the . Patient was told to come to the ER for admission as they
were moving up her Date for the TAVR and due to her SOB.
Will check labs that were drawn earlier and chest x-ray. Will admit to hospitalist.
Chronic conditions affecting care:
CHF
Chronic conditions affecting care: Arrhythmia
Acute Exacerbation and/or Progression of Chronic Illness: Arrhythmia
*Radiology
Radiology exam reviewed: radiology read reviewed (Chest-No radiographic evidence of acute cardiopulmonary abnormality. )
*Pulse Oximetry
Patient hypoxic: no
*EKG
Interpreted by ED Provider?: Yes
Heart Rate: 133
Rate: tachycardiac
Rhythm: a-fib
[place]: left axis deviation
QRS Pattern: left vent hypertrophy
*Veneer Stacker Interpretation
Rate: tachycardiac
Heart Rate: 133
Rhythm: a-fib
*Critical Care Note
Total Time (30-74mins, 75-104mins- exclusive of procedures): Not Applicable
ED Attending Note
-
Portions of this chart may have been created with voice recognition software.� Occasional wrong word or��sound alike� substitutions may have occurred due to the inherent limitations of voice recognition software.
Discharge Plan
Departure
Patient Disposition: Admit
Date of Disposition: 02/24/24
Time of Disposition: 20:01
Admit to: Telemetry
Presentation/result/management discussed w/ accepting MD/DO: Hospitalist
Patient with high blood pressure during this ER visit?: No
Condition: Good
Covid-19: Not Applicable
Discharge Problem:
Atrial fibrillation, SOB (shortness of breath)
Interventions
Interventions:
*Risk Screen - Suicide Last Done: 02/24/24 22:32
*General Assessment Last Done: 02/24/24 19:13
*Neglect/Abuse Screening Last Done: 02/24/24 19:13
ED- Fall Risk Assessment Last Done: 02/24/24 19:13
*ED COVID-19 Vaccine History Last Done: 02/24/24 19:13
*Nursing Disposition Last Done: 02/24/24 22:16
ED- Cardiac Assessment Last Done: 02/24/24 19:13
ED- Pulmonary Assessment Last Done: 02/24/24 19:13
Discharge Date and Time
Discharge Date/Time: 02/24/24 22:16
--- NOTE | 2024-02-24 21:08 | HPS.HSE ---
Family Physician
-
Family Physician: Willie Ryan, DO
Chief Complaint
-
Shortness of Breath
History of Present Illness
Pt is a 78 yo female p/w worsening SOB. Pt reports increasing SOB upon exertion over the weekend. She states she was scheduled for a TAVR procedure on 03/05/24 but upon completion of pre-op labs and diagnostics completed today the TAVR clinical
coordinator (Rosita) reached out stating that her procedure should be moved up to (02/27/24) and instructed her to present to hospital for admission. Patient was found to be in atrial fibrillation with rapid ventricular response. It appears
she was in a-fib during her recent cardiac catheterization as well. She denies any chest pains or palpitations. She denies lower extremity edema.
Medical History
Past Medical History
Past Medical History: Reports Other
Additional Past Medical History:
Rectal Cancer Stage IIIB s/p Chemotherapy/Radiation, and Resection with Diverting Ileostomy
Single Vessel Coronary Artery Disease
Paroxysmal Atrial Fibrillation
Severe Aortic Stenosis
Chronic HFpEF
Hyperthyroidism
Depression
Past Surgical History: Reports Other
Additional Past Surgical History:
Robotic Left Anterior Resection with Diverting Loop Ileostomy
Tonsillectomy
Appendectomy
Social History
Tobacco: Former Smoker (1ppd x 48 years)
Alcohol: None
Drug: None
Family History
Family History: Not pertinent
Allergies / Home Medications
Allergies reflects when Allergies were last updated in [facility].
Home Medications with original date entered in [facility]
Allergy/Medication List:
Allergies
Allergy/AdvReac Type Severity Reaction Status Date / Time
metoprolol Allergy Unknown Verified 02/24/24 17:21
Penicillins Allergy Hives Verified 02/24/24 17:21
Home Medications
cyanocobalamin (vitamin B-12) 1,000 mcg tablet (Vitamin B-12) 1,000 mcg PO DAILY@1300 Supplement ##0 09/25/23
pantothenic acid (vit B5) 1 tab PO DAILY@1300 Supplement 09/25/23
vitamin B complex 1 tab PO DAILY@1300 Supplement 09/25/23
apixaban 5 mg tablet (Eliquis) 5 mg PO BID 30 days #60 tabs 11/26/23
ascorbic acid (vitamin C) 1,000 mg tablet (Vitamin C) 1,000 mg PO DAILY@129902/04/24
biotin 10,000 mcg capsule 10,000 mcg PO DAILY@129902/04/24
calcium 333 mg-D3 8.3 mcg-magnesium ox 116.7 yz-N-I-minerals capsule (BoneUp) 1 cap PO DAILY@129902/04/24
collagen-hyaluronic jzac-ivddgfmbro-ltmu extract 515 mg capsule 1 cap PO DAILY@129902/04/24
methimazole 10 mg tablet 10 mg PO DAILY@129902/04/24
qteotgln-nbhb-eylhz acid 240 mcg-vit K 120 guv-afeqvc-grca 293 tablet (Alive Women's 50 Plus (fruit-veg blend)) 1 tab PO DAILY@129902/04/24
quercetin 500 mg capsule 500 mg PO DAILY@129902/04/24
amiodarone 100 mg tablet 100 mg PO Q48H 02/24/24
amiodarone 200 mg tablet 200 mg PO Q48H 02/24/24
Review of Systems
-
A 12 point ROS was completed and negative except as noted: Yes
Constitutional: Denies Fever or Chills
Respiratory: Reports Trouble Breathing; Denies Cough
Cardiac: Denies Chest Pain or Palpitations
Abdomen/GI: Denies Abdominal Pain, Nausea or Vomiting
Physical Exam
Vital Signs
Vital Signs
Temp Pulse Resp BP Pulse Ox
98.1 F 123 22 92/81 97
02/24/24 17:17 02/24/24 20:30 02/24/24 20:30 02/24/24 20:00 02/24/24 20:30
Physical Exam
General: Comfortable and Conversant
HEENT: Anicteric and Moist mucous membranes
Respiratory: Clear and Non Labored Respirations
Cardiac: S1/S2, Regular Rhythm and Murmur
GI: Soft, Non Tender and Ostomy
Rectal: Deferred by Provider
Musculoskeletal: No Clubbing, No Cyanosis and No Edema
Skin: Warm and Dry
Neuro: Awake, Alert, Oriented and Nonfocal/grossly intact
Psych: Calm
Data Reviewed
-
Lab Data: Labs Reviewed by me
Impression/Plan
-
Atrial Fibrillation with Rapid Ventricular Response
-Reviewed with Cardiology
-Start Amiodarone drip
-Continue oral amiodarone as prior to admission
Acute Kidney Injury
-Give small amount of IVFs overnight
-Recheck Creatinine in AM
Severe Aortic Stenosis
-Patient scheduled for TAVR on Feb 26
-Consult CT Surgery
-Monitor Is&Os and Daily Weights
Normocytic Anemia
-Patient has noted some blood from in her ostomy for which she has been in touch with Dr. eTnorio
-Check iron studies
-Trend Hgb
-Consider blood transfusion
Single Vessel Coronary Artery Disease
-Stable
Hyperthyroidism
-Continue Methimazole
Rectal Cancer Stage IIIB s/p Chemotherapy/Radiation, and Resection with Diverting Ileostomy
DVT proph: Eliquis
Code Status: Full Code
--- NOTE | 2024-02-24 21:23 | W.PN.UPDATE ---
Update Note
Progress Note Update
This is an addendum to the H&P written by Annalee Gong on 02/24/2024.� Patient seen and examined independently with PA.
78-year-old female past medical history of severe aortic stenosis, single-vessel CAD, paroxysmal A-fib on Eliquis, HFpEF, hyperthyroidism, rectal cancer stage IIIb status post chemotherapy/radiation, bowel resection with ileostomy, anemia of
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
Patient is being evaluated for TAVR that is originally scheduled on 03/05 however he was going to be preponed to this .
She was recently admitted in November for severe anemia from rectal bleeding from rectal cancer.� At that time she was in atrial fibrillation with RVR.� Underwent TRACI and cardioversion with zoroastrianism of sinus rhythm.� She later underwent cardiac
catheterization in January for aortic stenosis demonstrating severe aortic stenosis, single-vessel CAD.
Patient arrives in atrial fibrillation with RVR with heart rate of 133 and blood pressure of 97/57 which is stable.� Patient asymptomatic currently.� Appears slightly hypovolemic on exam. chest x-ray shows no evidence of cardiopulmonary
abnormality.� Cardiac BNP is 8600 from 4400.� Labs show JAKY with creatinine of 2.1.
Cardiology consulted.� IV fluids, amiodarone drip.
Patient notes that she has noticed some bleeding in her ileostomy and she had seen Dr. Tenorio in follow-up and he thought that there was some bleeding from the stoma site.� Hemoglobin is currently stable at 8.7.� Continue to monitor for further
transfusion requirements.
--- NOTE | 2024-02-24 23:00 | PTCARENOTE ---
Received pt from the ED; pt was admitted with CC of SOB, EKG showed Afib with RVR; pt was scheduled to TAVR procedure 03/05 which will now likely be moved up to 02/26; pt is AAOx4, TOGIAK; pt uses rolling walker; EKG was done and showed NSR; heart sounds
audible, radial and DP pulses palpable, no edema noted; lung sounds clear, spo2 98% on RA; +bs x4 quadrants, abdomen soft non tender, ileostomy present from 11/12/2023 and pt states it will be reversed 04/15/24, pt is independent in management of
ileostomy; pt voids clear yellow urine; arms are ecchymotic, other sinclair skin is clean, dry and intact; PIV maintained; all admission questions review with pt; call desai within reach; pt instructed to call for RN before attempting to ambulate, pt
understood; will continue to monitor.
--- NOTE | 2024-02-24 23:30 | PTCARENOTE ---
Pt's EKG shows NSR, amiodarone gtt order on hold per [facility]
[2024-02-25] VITALS (24 sets, daily range): BP systolic 76–106; BP diastolic 34–68; BMI 23.9
--- NOTE | 2024-02-25 | PTCARENOTE ---
Assessment unchanged; Pt resting comfortably in bed; NSR with PVC on monitor; VSS; awaiting NS bolus order from [facility]; call desai within reach; will continue to monitor.
[2024-02-25] MEDS: KCL 20 MEQ PO ×2 (00:49→21:08)
[2024-02-25] MEDS: NSS 250 IV (00:50)
--- NOTE | 2024-02-25 04:00 | PTCARENOTE ---
Pt assessment unchanged; NSR on monitor; ongoing low BPs, after 250ml NSS fluid bolus; [facility] aware, continuing to monitor; pt denies hypotensive symptoms.
[2024-02-25 06:50] LABS: Hematocrit 22.2 % (37.0-47.0); Hemoglobin 7.5 g/dL (12.0-16.0); Mean Corp Hgb Conc. 33.8 g/dL (33.0-37.0); Mean Corpuscular Hgb 31.1 pg (27.0-31.0); Mean Corpuscular Volume 92.1 fL (81.0-99.0); Mean Platelet Volume 10.7 fL (7.4-10.4); Platelet Count 190 10^3/uL (130-400); Red Blood Cell Count 2.41 10^6/uL (4.20-5.40); Red Cell Dist. Width 16.7 % (11.5-14.5); White Blood Cell Count 5.5 10^3/uL (4.8-10.8)
[2024-02-25 07:04] LABS: INR 1.18; PT 14.8 Sec (11.4-14.6)
[2024-02-25 07:05] LABS: APTT 41.9 Sec (23.4-35.0)
[2024-02-25 07:20] LABS: Blood Urea Nitrogen 66 mg/dl (7-17); Calcium 10.3 mg/dl (8.4-10.2); Carbon Dioxide 17 mmol/L (22-30); Chloride 107 mmol/L (98-107); Estimated Creatinine Clearance 16 ml/min; Glucose 87 mg/dl (70-99); Iron 70 ug/dl (37-170); Magnesium 2.4 mg/dl (1.6-2.3); Potassium 3.7 mmol/L (3.5-5.1); Sodium 135 mmol/L (135-145); eGFR 21.36
--- NOTE | 2024-02-25 07:28 | CONSULT.CT ---
Consultation
-
Date/Time Consultation Requested: 02/25/2024
Date/Time Consultation Performed: 02/25/2024
Requesting Provider: Beltran villatoro
Performing Provider: Brandi villatoro
Reason for Consultation: TAVR eval.
Patient History
Physicians
Family Physician: Dr. Marie
Outpatient Civil Design Specialist: Dr. Torres
History of Present Illness
Patient is a 78-year-old female well-known to our service. She was seen in the office approximately 1 week ago for TAVR evaluation. Details of this visit are found on the office history and physical. Over the weekend she developed shortness of
breath which increased in severity. She presented to the emergency room on 02/24/2024 and was admitted.
Past medical history significant for severe aortic stenosis, single-vessel CAD, paroxysmal atrial fibrillation on , heart failure with preserved ejection fraction, hypothyroidism, rectal cancer stage IIIb status postchemotherapy/radiation,
bowel resection with ileostomy, anemia of malignancy, depression, osteoarthritis, discoid lupus.
She also has a known history of a infrarenal aortic aneurysm. She was recently admitted in November for severe anemia from rectal bleeding from rectal cancer. At that time she was found to be in atrial fibrillation with RVR. She underwent cardiac
catheterization in December found to have severe aortic stenosis along with single-vessel CAD.
On admission she was found to be in A-fib with RVR and was hypotensive. Creatinine was noted to be 2.1. Cardiology was consulted and she was started on a amiodarone drip.
Today she is currently in sinus rhythm.
Plan for TAVR on . As per Dr. Bain she will receive 2 units of packed RBCs with IV Lasix given between transfusions. Hemoglobin today noted to be 7.5.
Past Medical History
Past Medical History: Atrial Fib, CAD, ROMERO, Valvular Disease and Other (Rectal cancer, GI bleed, pancytopenia due to chemotherapy, discoid lupus, osteoarthritis, vitamin B12 deficiency,)
Past Surgical History
Past Surgical History: Abdominal (Bowel resection for rectal cancer end ileostomy)
Dental History
Dental clearance obtained preoperatively
Family History
Mother: N/A
Father: N/A
Social History
Alcohol: None
Drug: None
Tobacco: Former Smoker
Personal: Single
Living: Alone
Employment: Retired
Allergies
Allergy/AdvReac Type Severity Reaction Status Date / Time
metoprolol Allergy Very low Verified 02/24/24 21:14
BP with
even low
doses of
metoprolol
Penicillins Allergy Hives Verified 02/24/24 17:21
Home Medications
�Medication �Instructions �Recorded �Confirmed �Type
cyanocobalamin (vitamin B-12) 1,000 mcg PO DAILY@1300 Supplement 09/25/23 02/24/24 History
1,000 mcg tablet (Vitamin B-12) ##0
pantothenic acid (vit B5) 1 tab PO DAILY@1300 Supplement 09/25/23 02/24/24 History
vitamin B complex 1 tab PO DAILY@1300 Supplement 09/25/23 02/24/24 History
apixaban 5 mg tablet (Eliquis) 5 mg PO BID 30 days #60 tabs 11/26/23 02/24/24 Rx
ascorbic acid (vitamin C) 1,000 mg 1,000 mg PO DAILY@129902/04/24 02/24/24 History
tablet (Vitamin C)
biotin 10,000 mcg capsule 10,000 mcg PO DAILY@129902/04/24 02/24/24 History
calcium 333 mg-D3 8.3 1 cap PO DAILY@129902/04/24 02/24/24 History
mcg-magnesium ox 116.7
za-A-T-minerals capsule (BoneUp)
collagen-hyaluronic 1 cap PO DAILY@129902/04/24 02/24/24 History
ebdr-zhccubsudy-jxht extract 515
mg capsule
methimazole 10 mg tablet 10 mg PO DAILY@129902/04/24 02/24/24 History
mxizezst-flws-xsrxf acid 240 1 tab PO DAILY@129902/04/24 02/24/24 History
mcg-vit K 120 vgb-ymfhbk-rnbq 293
tablet (Alive Women's 50 Plus
(fruit-veg blend))
quercetin 500 mg capsule 500 mg PO DAILY@129902/04/24 02/24/24 History
amiodarone 100 mg tablet 100 mg PO Q48H 02/24/24 02/24/24 History
amiodarone 200 mg tablet 200 mg PO Q48H 02/24/24 02/24/24 History
Review of Systems
-
History Source: Patient
General: Reports Fatigue
HEENT: Reports No Symptoms
Respiratory: Reports SOB and ROMERO
Cardiac: Reports CAD
Abdomen/GI: Reports Other (Bleeding from ileostomy followed by Dr. Tenorio)
: Reports No Symptoms
Musculoskeletal: Reports Arthralgias and Joint Pain
Skin: Reports No Symptoms
Neurological: Reports No Symptoms
Vascular: Reports No Symptoms
Physical Exam
Vital Signs
Temp 98.1 F 02/25/24 04:00
Temp route: Oral 02/25/24 04:00
Pulse 67 02/25/24 06:00
Rhythm: Normal sinus rhythm 02/25/24 04:00
Resp Rate 20 02/25/24 04:24
Blood pressure LEFT upper extremity: 83/71 02/24/24 23:07
Blood pressure RIGHT upper extremity: 95/62 02/24/24 23:07
Blood pressure 89/45 02/25/24 04:24
Blood pressure extremity used: Right upper arm 02/25/24 04:00
Position: Lying 02/25/24 04:00
MAP (cuff-Heather Monitor) 59 02/25/24 04:24
SaO2 98 02/25/24 04:24
Oxygen Mode of Delivery Room air 02/25/24 04:00
Acceptable pain level during hospitalization? 0 02/24/24 17:17
Can the patient verbally communicate their pain? Yes 02/24/24 22:32
Actual Weight 130 lb 4.691 oz 02/25/24 05:50
Body Mass Index (BMI) 23.9 02/25/24 05:50
Labs
02/25/24 06:28
02/25/24 06:28
Exam
General: No Apparent Distress
HEENT: Normocephalic, Anicteric and Atraumatic
Neck: Trachea Midline
Respiratory: Crackles
Cardiac: Regular Rhythm
GI: Soft, Non Tender and Other (Ileostomy site dressed appears dry)
Rectal: Deferred by Provider
Skin: Warm
Neuro: Awake
Lymph: No Lymphadenopathy
Psych: Calm
Assessment / Plan
-
Assessment:
Severe aortic stenosis plan for TAVR on
Anemia
Plan:
TAVR on
Transfuse 2 units of packed RBCs today with IV Lasix between transfusions as per Dr. Bain
[2024-02-25 07:29] LABS: Percent Saturation 25 % (20-50); Total Iron Binding Capacity 280 ug/dl (265-497)
--- NOTE | 2024-02-25 08:00 | PTCARENOTE ---
Assumed care of patient. Walking rounds completed with previous RN. Pt assessed while she was lying in bed. Pt alert and oriented x4. Pt denies pain, shortness of breath and nausea. ROMANO with equal strength throughout. Able to ambulate independently
to the bathroom. NSR on tele with rates in the 80s. BP stable. Bilateral radial and DP pulses palpable. No edema noted. POX 100% on RA. Lungs clear. No cough noted. Abdomen soft, nontender. +BS. Ileostomy intact, pt reports no issues with care. Pt
voids in the toilet, reports no issues. Scattered bruising noted. Right arm 20g PIV intact. See MAR for medication administration. See worklist for complete nursing assessment. Plan of care reviewed and patient in agreement.
--- NOTE | 2024-02-25 08:10 | CON.CAR ---
Consultation
Consultation Request
Date/Time Consultation Requested: 02/25/2024 at 730 AM
Date/Time Consultation Performed: 02/25/2024 7:30 AM
Requesting Provider: Hospitalist
Performing Provider: Dr. Torres
Reason for Consultation: Severe aortic stenosis and atrial fibrillation.
Medical History
-
History of Present Illness:
78-year-old woman well-known to me from previous outpatient visits. 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 Patient has been undergoing evaluation for TAVR
and was initially slated to have TAVR next week. Patient was getting preadmission testing and was noted to be in A-fib with RVR with heart rate in the 130s and was noted to have severe anemia.
Patient initially had issues with symptomatic anemia and then was diagnosed with rectal cancer. At that time patient was also noted to have severe aortic stenosis with mean gradients in the 70s. Due to the importance of treatment of her rectal
cancer she received chemotherapy and initial plan was to proceed with TAVR after chemotherapy. However after chemotherapy patient had issues with recurrent rectal bleeding and anemia requiring transfusion. Ultimately the patient required rectal
surgery/low anterior resection. Despite severe aortic stenosis she tolerated surgery well. Postoperative course notable for A-fib with RVR. She was treated with IV amiodarone and eventually cardioverted. Maintained on oral amiodarone. Did well
in her recovery. As an outpatient she followed up and was in sinus bradycardia with a heart rate in the 40s so amiodarone was reduced to 100 mg a day. Plan for proceeding with catheterization and TAVR was delayed due to development of
hyperthyroidism. She treated with methimazole under the direction of endocrinology/Dr. Patton. Hyperthyroidism improved and she proceed with cardiac catheterization and then was scheduled for TAVR. A couple weeks ago while awaiting TAVR she was
noted to have some blood from her ostomy seen by Dr. Tenorio and area was treated with no evidence of recurrent bleeding however patient has been noted to have anemia since that time. Of note she has been maintained on Eliquis throughout. She now
presented to admission testing with A-fib with RVR and is also significantly anemic and is now admitted. Placed on IV amiodarone overnight and is now converted to sinus rhythm.
Past medical history
Rectal cancer
Severe aortic stenosis
Anemia
Atrial fibrillation
Hypothyroidism
HFpEF
CAD RCA - nondominant 89-90%
hard of hearing
Social history none smoker
Social History
Tobacco: Non-Smoker
Family History
Family History: Other (Negative for premature CAD)
Allergies / Home Medications
Allergy/AdvReac Type Severity Reaction Status Date / Time
metoprolol Allergy Very low Verified 02/24/24 21:14
BP with
even low
doses of
metoprolol
Penicillins Allergy Hives Verified 02/24/24 17:21
�Medication �Instructions �Recorded �Confirmed �Type
cyanocobalamin (vitamin B-12) 1,000 mcg PO DAILY@1300 Supplement 09/25/23 02/24/24 History
1,000 mcg tablet (Vitamin B-12) ##0
pantothenic acid (vit B5) 1 tab PO DAILY@1300 Supplement 09/25/23 02/24/24 History
vitamin B complex 1 tab PO DAILY@1300 Supplement 09/25/23 02/24/24 History
apixaban 5 mg tablet (Eliquis) 5 mg PO BID 30 days #60 tabs 11/26/23 02/24/24 Rx
ascorbic acid (vitamin C) 1,000 mg 1,000 mg PO DAILY@1300 02/04/24 02/24/24 History
tablet (Vitamin C)
biotin 10,000 mcg capsule 10,000 mcg PO DAILY@129902/04/24 02/24/24 History
calcium 333 mg-D3 8.3 1 cap PO DAILY@129902/04/24 02/24/24 History
mcg-magnesium ox 116.7
wi-K-I-minerals capsule (BoneUp)
collagen-hyaluronic 1 cap PO DAILY@129902/04/24 02/24/24 History
cmou-xbtegxqszb-ggax extract 515
mg capsule
methimazole 10 mg tablet 10 mg PO DAILY@129902/04/24 02/24/24 History
ssxhpenq-jpsp-ergap acid 240 1 tab PO DAILY@129902/04/24 02/24/24 History
mcg-vit K 120 uvi-yxlhvr-ktpp 293
tablet (Alive Women's 50 Plus
(fruit-veg blend))
quercetin 500 mg capsule 500 mg PO DAILY@129902/04/24 02/24/24 History
amiodarone 100 mg tablet 100 mg PO Q48H 02/24/24 02/24/24 History
amiodarone 200 mg tablet 200 mg PO Q48H 02/24/24 02/24/24 History
Review of Systems
-
All other systems: Negative unless noted
Physical Exam
Vital Signs
Temp Pulse Resp BP Pulse Ox
98.1 F 82 20 102/56 100
02/25/24 04:00 02/25/24 08:00 02/25/24 04:24 02/25/24 07:01 02/25/24 07:00
Lab Results
02/25/24 06:28
02/25/24 06:28
Physical Exam
General: Well Developed, Well Nourished and No Apparent Distress
HEENT: Normocephalic, Anicteric, Moist Mucous Membranes and Other (Extraocular is intact pupils equal reactive to light)
Respiratory: Clear (No wheezes rales or rhonchi)
Cardiac: Regular Rhythm and Other (Systolic murmur present)
GI: Soft, Non Tender, Normal Bowel Sounds and Other (No prostamegaly)
Musculoskeletal: No Clubbing, No Cyanosis and No Edema
Skin: Warm, Dry and Rash (No rash)
Neuro: Awake
Psych: Calm
Impression / Plan
-
Severe aortic stenosis.
Severe anemia-no evidence of acute bleeding but hemoglobin is down to 7.5.
-PRBCs with close monitoring for heart failure
-IV Lasix with PRBCs
-If evidence of acute bleeding will need to hold Eliquis.
-Continue to assess timing of TAVR. Patient currently with rising creatinine up to 2.3. Will need hemoglobin and creatinine to improve prior to proceeding
-
Atrial fibrillation-patient previously known to have A-fib and maintained on amiodarone although the dose was only 100 mg a day due to previous bradycardia. Patient initially with A-fib with RVR but now in sinus rhythm with heart rates in the 70s
-Blood pressure limits treatment options and severe aortic stenosis limited treatment options.
- spontaneous conversion to nsr
- continue amiodarone. if recurrence then goive IV amiodarone
-Continue anticoagulation but monitor
anemia as noted above
-Currently Eliquis held with drop in hemoglobin and potential need for invasive procedures. If hemoglobin stable then may consider IV heparin. If Eliquis restarted patient's renal function and weight would mean that her dosing would be reduced to
2.5 mg twice daily
Rectal cancer
-Colorectal surgeon Dr. Tenorio
-Oncologist Dr. Henderson
JAKY. Creatinine up to 2.3 likely related to hemodynamics with A-fib and lower pressures. Creatinine is gone from 2.1-2.3.
-Continue to monitor with optimization of hemodynamics treatment of A-fib and treatment of anemia
.
Hyperthyroidism improved based on last set of TFTs
Data Reviewed
-
EKG: Report Reviewed by me
Medical Tests (Nuc Med, Echo etc): Report Reviewed by me
Labs: Labs Reviewed by me
[2024-02-25 08:22] LABS: Folate > 20.0 ng/ml (2.76-20); Vitamin B12 > 1000 pg/ml (239-931)
--- NOTE | 2024-02-25 08:30 | PTCARENOTE ---
Orders to get H/H post administration of 2units PRBC and then begin heparin infusion.
[2024-02-25] MEDS: PACERONE 400 MG PO (09:21)
--- NOTE | 2024-02-25 09:56 | W.PN.HOSP.TC ---
Today's Communication/Plan
-
replete K goal 4
rate rhythm control as per cardio
monitor H&H, renal function
Assessment / Plan
Assessment / Plan
Physical Exam
General: Comfortable and Conversant
HEENT: Anicteric and Moist mucous membranes hard of hearing
Respiratory: Clear and Non Labored Respirations
Cardiac: S1/S2, Regular Rhythm and Murmur
GI: Soft, Non Tender and Ostomy
Musculoskeletal: No Clubbing, No Cyanosis and No Edema
Skin: Warm and Dry
Neuro: Awake, Alert, Oriented and Nonfocal/grossly intact
Psych: Calm
HPI 78 yo female p/w worsening SOB. Pt reports increasing SOB upon exertion over the weekend. She states she was scheduled for a TAVR procedure on 03/05/24 but upon completion of pre-op labs and diagnostics completed today the TAVR clinical
coordinator (Rosita) reached out stating that her procedure should be moved up to (02/27/24) and instructed her to present to hospital for admission. Patient was found to be in atrial fibrillation with rapid ventricular response. It appears
she was in a-fib during her recent cardiac catheterization as well. She denies any chest pains or palpitations. She denies lower extremity edema
Atrial Fibrillation with Rapid Ventricular Response
-Cardio eval appreciated
-cont amiodarone as per cardio
Acute Kidney Injury
-Improving
Severe Aortic Stenosis
-Patient scheduled for TAVR on Feb 26
-Consult CT Surgery appreciated
-Monitor Is&Os and Daily Weights
Normocytic Anemia
-Patient has noted some blood from in her ostomy for which she has been in touch with Dr. Tenorio
-Check iron studies
-Trend Hgb
-received PRBC transfusion with good response
Single Vessel Coronary Artery Disease
-Stable
Hyperthyroidism
-Continue Methimazole
Rectal Cancer Stage IIIB s/p Chemotherapy/Radiation, and Resection with Diverting Ileostomy
DVT proph: Eliquis
Code Status: Full Code
I spent a total of 50 minutes with the patient or on the floor. More than 50% of this time involved counseling and coordination of care.
Anticipated Discharge: > 48 hours
Subjective/Interval History
-
Date of Service: February 25, 2024
Seen and examined at bedside in no acute distress resting comfortably in bed. Denies chest pain palpitations
Objective Data
-
Labs:
Laboratory Results
02/21/24 02/24/24 02/25/24
12:12 12:37 06:28
WBC 7.6 5.5
Hgb 8.7 L 7.5 L
Hct 26.3 L 22.2 L
Plt Count 241 190 D
PT 17.3 H 14.8 H
INR 1.43 1.18
APTT Cancelled 43.9 H 41.9 H
Sodium 135 135
Potassium 3.6 3.7
Chloride 104 107
Carbon Dioxide 16 L 17 L
BUN 55 H 66 H
Creatinine 2.1 H 2.3 H
Glucose 106 H 87
Calcium 11.5 H 10.3 H
Total Bilirubin 0.5
AST 31
ALT 20
Alkaline Phosphatase 103
Vital Signs:
Vital Signs
Temp Pulse Resp BP Pulse Ox
98.1 F 82 20 102/56 100
02/25/24 09:10 02/25/24 08:00 02/25/24 04:24 02/25/24 07:01 02/25/24 08:00
I&O
02/24/24 02/25/24 02/26/24
06:59 06:59 06:59
Intake Total 240 / 240
Balance 240 / 240
--- NOTE | 2024-02-25 11:34 | PTCARENOTE ---
Received pt from dayshift nurse: NSR, VSS, Pt receiving first unit of PRBC, pt resting comfortably in bed.
[2024-02-25] MEDS: LASIX 40 MG IV (12:09)
[2024-02-25] MEDS: TAPAZOLE 10 MG PO (13:34)
--- NOTE | 2024-02-25 15:28 | PTCARENOTE ---
Pt is in NSR; VSS; blood transfusion completed, pt tolerated transfusion; pt assessment unchanged from prior, see nursing assessment.
[2024-02-25 15:31] LABS: Hematocrit 30.6 % (37.0-47.0); Hemoglobin 11.1 g/dL (12.0-16.0); Mean Corp Hgb Conc. 36.3 g/dL (33.0-37.0); Mean Corpuscular Volume 88.2 fL (81.0-99.0); Mean Platelet Volume 10.9 fL (7.4-10.4); Platelet Count 166 10^3/uL (130-400); Red Blood Cell Count 3.47 10^6/uL (4.20-5.40); Red Cell Dist. Width 15.9 % (11.5-14.5)
[2024-02-25 15:50] LABS: Blood Urea Nitrogen 62 mg/dl (7-17); Carbon Dioxide 19 mmol/L (22-30); Chloride 108 mmol/L (98-107); Estimated Creatinine Clearance 20 ml/min; Glucose 91 mg/dl (70-99); Potassium 3.5 mmol/L (3.5-5.1); Sodium 135 mmol/L (135-145); eGFR 26.86
[2024-02-25] MEDS: KCL 40 MEQ PO (16:27)
[2024-02-25 17:02] LABS: Urine Albumin Negative (Neg - Trace); Urine Bilirubin Negative (Negative); Urine Character Clear (Clear); Urine Color Yellow; Urine Glucose Negative (Negative); Urine Ketone Negative (Negative); Urine Leukocyte Negative (Negative); Urine Nitrite Negative (Negative); Urine Occult Blood 1+ (Negative); Urine Specific Gravity 1.015 (<1.030); Urine Urobilinogen Negative (Neg - 1+)
[2024-02-25 17:26] LABS: Urine Squamous Cell 0-2 /LPF (Few)
[2024-02-25 17:29] LABS: Urine Bacteria Few (Negative); Urine White Cell 0-2 /HPF (0-5)
--- NOTE | 2024-02-25 18:11 | PTCARENOTE ---
Vascular access team called for line assistance. L mid-line placed. Labs sent.
[2024-02-25 18:21] LABS: Hematocrit 27.8 % (37.0-47.0)
[2024-02-25 18:31] LABS: APTT 32.6 Sec (23.4-35.0)
[2024-02-25] MEDS: HEPARIN 25000 UNITS/250 ML IV (20:00)
--- NOTE | 2024-02-25 21:00 | PTCARENOTE ---
Report received from EDWARD Sue. VS done. Pt assessed. See flowsheets. BP 90 systolic. PA made aware. Pt W/O lightheadedness or dizziness when getting up to go to BR. Pt denies pain. Neuro intact. Awake, alert, oriented x 4. Speech clear. She is on
room air. Sat 96%. BBS, clear to auscultation. . She is in SR. Palpable pulses ( see flowsheet). Audible heart tones. + NUZHAT, 2ICS, RSB. Pt with ileostomy. red-pink stoma. She performs care and emptied bag at 1999. Belly soft, nontender. Normoactive
BS x 4. Urine clear, yellow.
Heparin gtt started at 2030 at 700 units/hr or 7 mls/hr. Will check PTT at 0230 per protocol.
Pt questioned why she is taking Amiodarone 400 mg BID. She is concerned about her hx of hyperthyroidism while being on amiodarone in the past.
She also refuses to take potassium in powder form, but will take a pill.
Information relayed to Ed, PA. Amiodarone 200 mg ordered now (instead of 400 mg). KCL 20 meq in pill form ordered and given. See MAR.
Bruise noted to right upper arm.
Midline IV intact to L arm. Heparin gtt to RFA IV. Ongoing plan of care.
[2024-02-25] MEDS: PACERONE 200 MG PO (21:04)
[2024-02-25] MEDS: PACERONE PO (21:04)
[2024-02-25] MEDS: TYLENOL 650 MG PO (22:13)
--- NOTE | 2024-02-25 22:15 | PTCARENOTE ---
Pt c/o 04/16 pain to left elbow. states it is shock-like pain noticed after midline cath insertion. States pain had been gpoing to her fingers earlier today but that has subsided. Pain to elbow and noticed while trying to sleep. Will notify [facility] and
IV team. Tylenol 650 mg po given. No sensory or motor deficits in L hand/arm
--- NOTE | 2024-02-25 23:40 | VATNOTE ---
called to unit to assess pts left elbow tenderness below midline insertion. Pt. stated elbow tenderness is 'excruciating' and woke her up. States that shes had this pain since midline was inserted. Pt. stated to this VAT RN who inserted midline that
she did have left finger tingling upon initial midline insertion however that dissipated right away after insertion. Pt. states she informed this VAT RN that she did have elbow tenderness upon insertion of midline. Rhett HO, had given pt. Tylenol
prior to my arrival. Offered to remove midline tonight however pt. did not want that. Heat applied to left elbow and immobilizer also applied. Rhett HO informed of the above. Instructed pt. that if pain continued thru am, midline would need to be
taken out and reinserted in right arm tomorrow. Rhett HO informed of offering further warmth applications to pt throughout night. Midline has excellent blood return . VAT to follow.
[2024-02-26] VITALS (9 sets, daily range): BP systolic 90–106; BP diastolic 46–57; BMI 24.0
[2024-02-26] MEDS: DILAUDID 0.25 MG IV ×2 (00:57→22:51)
--- NOTE | 2024-02-26 00:58 | PTCARENOTE ---
PA notified that pt has 8/10 pain to L elbow with movement only, No pain at rest. She had warm compress and had immobilizer. No hematoma or signs of bleeding to L elbow. No motor deficits to L elbow. Dilaudid 0.25 mg IV ordered and given. Ongoing
plan of care to assess pain.
[2024-02-26 03:23] LABS: Ionized Calcium 1.28 mMOL/L (1.15-1.33)
[2024-02-26 03:35] LABS: APTT 60.1 Sec (23.4-35.0)
--- NOTE | 2024-02-26 03:48 | DOWNTIME ---
There was a [employer] Client Tool Shaper Set Up Operator Downtime on 02/26/2024 from 0100 to 02/26/2024 at 0252. Downtime documentation of patient's care, including medication administrations, has been reconciled in the electronic record per guidelines. Refer to the
patient's paper chart under the miscellaneous tab to see printed paper medication records and downtime forms.
--- NOTE | 2024-02-26 03:48 | PTCARENOTE ---
Labs drawn and sent. H&H redrawn. Pt sleeping. Arouses briefly while drawing labs. VS done. See MAR.
[2024-02-26 03:54] LABS: Hematocrit 26.4 % (37.0-47.0); Hemoglobin 9.3 g/dL (12.0-16.0); Mean Corp Hgb Conc. 35.2 g/dL (33.0-37.0); Mean Corpuscular Hgb 31.6 pg (27.0-31.0); Mean Corpuscular Volume 89.8 fL (81.0-99.0); Mean Platelet Volume 10.7 fL (7.4-10.4); Platelet Count 146 10^3/uL (130-400); Red Blood Cell Count 2.94 10^6/uL (4.20-5.40); Red Cell Dist. Width 16.6 % (11.5-14.5); White Blood Cell Count 4.7 10^3/uL (4.8-10.8)
[2024-02-26 06:09] LABS: Blood Urea Nitrogen 64 mg/dl (7-17); Calcium 9.5 mg/dl (8.4-10.2); Carbon Dioxide 16 mmol/L (22-30); Chloride 111 mmol/L (98-107); Estimated Creatinine Clearance 21 ml/min; Glucose 86 mg/dl (70-99); Phosphorus 4.9 mg/dl (2.5-4.5); Potassium 4.1 mmol/L (3.5-5.1); Sodium 135 mmol/L (135-145); eGFR 28.66
--- NOTE | 2024-02-26 07:00 | PTCARENOTE ---
Bedside walking rounds report received. Pt is awake alert and oriented x 2: extremely [place]: refusing amiodarone due to 'thyroid issue(hyperthyroid ) about 6 weeks ago when amio was started.' Amie RICE FARMER aware and Dr. Sebastian also made aware upper arm
midline flushed per protocol and positive blood return. Left elbow pain. See flow record for reamaining assessments.
--- NOTE | 2024-02-26 07:15 | PTCARENOTE ---
Pt up to BR. States pain to L elbow more controlled at 09/14. Report to EDWARD Braswell. Walking rounds done.
[2024-02-26] MEDS: TYLENOL 650 MG PO (07:37)
--- NOTE | 2024-02-26 07:58 | W.PN.HOSP.TC ---
Today's Communication/Plan
-
NPO after midnight for TAVR
temporary Bicarb supplementation mild metabolic acidosis
Assessment / Plan
Assessment / Plan
Physical Exam
General: Comfortable and Conversant
HEENT: Anicteric and Moist mucous membranes hard of hearing
Respiratory: Clear and Non Labored Respirations
Cardiac: S1/S2, Regular Rhythm and Murmur
GI: Soft, Non Tender and Ostomy
Musculoskeletal: No Clubbing, No Cyanosis and No Edema
Skin: Warm and Dry
Neuro: Awake, Alert, Oriented and Nonfocal/grossly intact
Psych: Calm
HPI 78 yo female p/w worsening SOB. Pt reports increasing SOB upon exertion over the weekend. She states she was scheduled for a TAVR procedure on 03/05/24 but upon completion of pre-op labs and diagnostics completed today the TAVR clinical
coordinator (Rosita) reached out stating that her procedure should be moved up to (02/27/24) and instructed her to present to hospital for admission. Patient was found to be in atrial fibrillation with rapid ventricular response. It appears
she was in a-fib during her recent cardiac catheterization as well. She denies any chest pains or palpitations. She denies lower extremity edema
Atrial Fibrillation with Rapid Ventricular Response
-Cardio eval appreciated
-cont amiodarone as per cardio
Acute Kidney Injury
-Improving
Severe Aortic Stenosis
-Patient scheduled for TAVR on Feb 26
-Consult CT Surgery appreciated
-Monitor Is&Os and Daily Weights
Normocytic Anemia
-Patient has noted some blood from in her ostomy for which she has been in touch with Dr. Tenorio
-Check iron studies
-Trend Hgb
-received PRBC transfusion with good response
Single Vessel Coronary Artery Disease
-Stable
Hyperthyroidism
-Continue Methimazole
Mild Metabolic Acidosis
temporary Bicarb supplementation PO started
Rectal Cancer Stage IIIB s/p Chemotherapy/Radiation, and Resection with Diverting Ileostomy
DVT proph: Eliquis
Code Status: Full Code
I spent a total of 50 minutes with the patient or on the floor. More than 50% of this time involved counseling and coordination of care.
Anticipated Discharge: > 48 hours
Subjective/Interval History
-
Date of Service: February 26, 2024
no acute distress comfortable
Objective Data
-
Labs:
Laboratory Results
02/26/24 02/26/24 02/26/24
03:01 03:38 04:57
WBC Cancelled 4.7 L
Hgb Cancelled 9.3 L
Hct Cancelled 26.4 L
Plt Count Cancelled 146
APTT 60.1 H
Sodium Cancelled 135
Potassium Cancelled 4.1
Chloride Cancelled 111 H
Carbon Dioxide Cancelled 16 L
BUN Cancelled 64 H
Creatinine Cancelled 1.8 H
Glucose Cancelled 86
Calcium Cancelled 9.5
02/26/24
10:00
WBC
Hgb
Hct
Plt Count
APTT Pending
Sodium
Potassium
Chloride
Carbon Dioxide
BUN
Creatinine
Glucose
Calcium
Vital Signs:
Vital Signs
Temp Pulse Resp BP Pulse Ox
97.9 F 69 20 100/46 97
02/26/24 07:45 02/26/24 07:45 02/26/24 07:45 02/26/24 07:45 02/26/24 07:45
I&O
02/25/24 02/26/24 02/27/24
06:59 06:59 06:59
Intake Total 546 / 546
Output Total 1325 / 1325
Balance -779 / -779
[2024-02-26 10:50] LABS: APTT 93.5 Sec (23.4-35.0)
[2024-02-26] MEDS: PACERONE 200 MG PO ×2 (11:14→21:55)
--- NOTE | 2024-02-26 12:19 | W.PN.CD ---
Today's Communication / Plan
-
Expedited TAVR, likely tomorrow.
Monitor renal function.
Minimize nephrotoxins.
Hold anticoagulation.
Monitor H/H.
Impression / Plan
-
Impression/Plan: 78 y/o female with a history of rectal CA complicated by continuous rectal bleeding unresponsive to APC (11/05/2023) and requiring recurrent transfusions, s/p LAR with diverting loop ileostomy on 11/12/2023, paroxysmal atrial
fibrillation and critical, symptomatic aortic valve stenosis admitted from [facility] with AF/RVR, acute on chronic anemia and JAKY for expedited TAVR.
#Critical aortic stenosis
-Chronic.
-Mean gradient 79 by echo, 40's by cath (performed in atrial fibrillation).
-Plan for #26 Med[employer]onic CoreValve TAVR tomorrow.
-NPO after MN.
-Consent signed an on the chart.
#Severe anemia
-Acute on chronic.
-No evidence of acute bleeding but hemoglobin is down to 7.5.
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
-Transfused 2 units of PRBCs with furosemide in between.
-IV Lasix with PRBCs
-Hold apixaban.
-TAVR tomorrow, minimal contrast.
#Paroxysmal atrial fibrillation
-Patient previously known to have A-fib and maintained on amiodarone although the dose was only 100 mg a day due to previous bradycardia.
-Currently in NSR.
-Blood pressure limits treatment options and severe aortic stenosis limited treatment options.
-Rate/rhythm control with amiodarone.
-CHADS2-Vasc = 4 (CHF, Age x2, Female).
-Hold apixaban in anticipation of TAVR.
#Rectal cancer
-S/P LAR with diverting loop ileostomy, prior FOLFOX.
-Colorectal surgeon Dr. Tenorio
-Oncologist Dr. Henderson
#JAKY
-Creatinine peaked at 2.3, likely related to hemodynamics with A-fib and lower pressures.
-Creatinine slowly improving, now 1.8.
-Limit nephrotoxins, including contrast.
#Hyperthyroidism
-Chronic, improved based on last set of TFTs.
-Continue methimazole.
-Monitor with amiodarone use.
Subjective/Interval History:
Complaining of left elbow pain overnight.
Received 2 units of PRBC's yesterday.
Hbg trend = 7.5 --> 11.1 --> 10.0 --> 9.3.
Creatinine = 1.8 <-- 1.9 <-- 2.3.
DATA:
Cardiac Catheterization, 02/04/2024:
CONCLUSIONS
1:�Severe aortic stenosis with mean gradient 44 mmHg-this is an approximation as the patient is in atrial fibrillation
2:�Single-vessel CAD with 80-90% stenosis in the midportion of a nondominant RCA. This will be treated medically.
3. Continue with TAVR evaluation.
TTE, 01/15/2024:
CONCLUSIONS
Normal left ventricular size with severe concentric hypertrophy and normal
systolic function. No regional wall motion abnormalities are seen. LV ejection
fraction is 65-70% by Goff's method of discs. Stage II diastolic dysfunction
suggestive of abnormal relaxation and increased filling pressures.
Normal right ventricular size and function.
Severe left atrial dilation.
Mild right atrial dilation.
Mitral annular calcification with extension onto the anterior mitral leaflet.
Moderate mitral regurgitation.
Thickened aortic valve with restricted leaflet motion, critical aortic stenosis
and moderate regurgitation.
Color flow pattern suggestive of small PFO.
Mild pulmonary hypertension. PASP estimated 44 mmHg.
Physical Exam
Vital Signs/Labs
Vital Signs
Temp Pulse Resp BP Pulse Ox
37.0 C 58 18 106/54 98
02/26/24 11:19 02/26/24 11:19 02/26/24 11:19 02/26/24 11:19 02/26/24 11:19
02/25/24 02/26/24 02/27/24
11:59 11:59 11:59
Actual Weight 59.1 kg 59.4 kg
02/26/24 03:38
02/26/24 04:57
PT 14.8 Sec (11.4-14.6) H 02/25/24 06:28
INR 1.18 02/25/24 06:28
APTT 93.5 Sec (23.4-35.0) H 02/26/24 10:03
Magnesium 2.0 mg/dl (1.6-2.3) 02/26/24 04:57
02/21/24 02/24/24
12:12 12:37
Ntn-V-Cfmveebqbor Pept Cancelled 8650
Physical Exam
Constitutional: No acute distress and Comfortable
EENT: Anicteric and Moist mucous membranes
Cardiovascular: Rhythm & rate is regular, Pedal edema is absent, JVD pressure is normal, Systolic murmur present and S1S2 is normal
Respiratory: Respiratory effort normal, Lungs clear to auscul., Wheeze Absent, Crackles Absent and Rhonchi Absent
GI: Soft, Distention absent, Flat, Non tender and Normal bowel sounds
Neuro/Psych: AO x 3
Data Reviewed
-
Date of Service: February 26, 2024
Medical Decision Making: Reviewed Test Results, Independent Historian Assessment, Test Interpretation and Review of Case with other Provider
EKG: Tracing Personally Visualized and interpreted and Report Reviewed by me
Echo: Tracing Personally Visualized and interpreted and Report Reviewed by me
X-Ray/CT/US/MRI/NUC/PET: Image Personally Visualized and interpreted, Report Reviewed by me and Discussed with Physician
Medical Tests (PFT, Pathology etc): Image Personally Visualized and interpreted, Report Reviewed by me and Discussed with Physician
Labs: Labs Reviewed by me
Old Records: Reviewed
[2024-02-26] MEDS: TAPAZOLE 10 MG PO (13:10)
[2024-02-26] MEDS: SODIUM BICARBONATE 650 MG PO ×3 (13:10→22:51)
[2024-02-26] MEDS: LOW STRENGTH ASPIRIN 324 MG PO (14:42)
[2024-02-26] MEDS: ULTRAM 25 MG PO (14:42)
--- NOTE | 2024-02-26 15:01 | CM ---
CM following for DC planning needs.
Reviewed initial assessment. Pt. resides alone in an apartment. Apartment has no steps to enter.
Anticipated DC plan is for home w/ visit from [facility] Transitional [facility] RN.
CM will cont. to monitor and follow closely for DC planning needs.
--- NOTE | 2024-02-26 16:22 | PTCARENOTE ---
continues to complain about L arm despite ultram dose given. States she 'better not have permanent nerve damage from this' and asked if i can document this in her chart. will continue to monitor.
[2024-02-26 17:05] LABS: APTT 88.2 Sec (23.4-35.0)
--- NOTE | 2024-02-26 21:00 | PTCARENOTE ---
Report from EDWARD Araujo. VS recorded. See flowsheet. Assessment completed. Pt awake, alert, oriented x 4. Hard of hearing. Pt on room air. Sats 95-96%. BBS present. Clear. Audible heart tones. + NUZHAT. Pt in SR with PACs. Palpable pulses. +2 bilateral
radials, DP's. BP 90's systolic. No c/o lightheadedness or dizziness. Pt with Ileostomy. She empties bag independently. She changed her bag today. Voids clear, yellow urine in toilet.
Pt clipped and prepped for CVOR. Pt given chlorhexidine bath in bed. CHG wipe bath also given.New linens and gown provided.
Heparin gtt to be stopped interventional cardiologist to laborer general per order of [facility] Booth. Currently at 900 units/hr.
Pt refused to take Amiodarone 400 mg tonight for fear of hyperthyroidism as a side effect. She agreed to take 200 mg amiodarone. PA aware.
Pt to be NPO after MN.
Sister at bedside visiting with pt.
[2024-02-26] MEDS: HEPARIN 25000 UNITS/250 ML IV (22:52)
--- NOTE | 2024-02-26 23:00 | PTCARENOTE ---
Pt c/o 8/10 pain with movement to L arm. No strength or motor deficit. Midline catheter flushes with NS without difficulty. Refused Tylenol and Tramadol Discussed with PA. Dilaudid 0.25 mg IV given for pain.
[2024-02-27] VITALS (40 sets, daily range): BP systolic 74–128; BP diastolic 40–76; BMI 24.0
[2024-02-27] MEDS: LOW STRENGTH ASPIRIN 81 MG PO (05:41)
[2024-02-27 05:42] LABS: Hematocrit 28.4 % (37.0-47.0); Hemoglobin 9.8 g/dL (12.0-16.0); Mean Corp Hgb Conc. 34.5 g/dL (33.0-37.0); Mean Corpuscular Hgb 31.6 pg (27.0-31.0); Mean Corpuscular Volume 91.6 fL (81.0-99.0); Mean Platelet Volume 9.8 fL (7.4-10.4); Platelet Count 155 10^3/uL (130-400); Red Cell Dist. Width 17.2 % (11.5-14.5); White Blood Cell Count 4.2 10^3/uL (4.8-10.8)
[2024-02-27 06:06] LABS: APTT 108.6 Sec (23.4-35.0)
--- NOTE | 2024-02-27 06:18 | W.CVOR.SURPR ---
CVOR Surgeon Immed Pre Op
-
I have examined this patient prior to performance of the scheduled procedure.
The patient's condition is unchanged from the time of the dictated/written History and
Physical and the patient is able to undergo the scheduled procedure.
Plan to proceed with TAVR today assuming a.m. creatinine is reasonable. Hemoglobin is stable.
Patient would request for surgical rescue if deemed appropriate by the covering surgeon.
--- NOTE | 2024-02-27 06:22 | PTCARENOTE ---
Lab work drawn and sent. Pt given second CHG bed bath and then CHG wipe bath. Gown changed. Dr. Cordova at bedside to see pt. Family at bedside. Awaiting supervisor laboratory strip picker for TAVR. ASA 81 mg given as ordered. Pt has been NPO since MN. To d/c Heparin
gtt insulation hoseman to supervisor laboratory.
[2024-02-27 06:31] LABS: Blood Urea Nitrogen 59 mg/dl (7-17); Calcium 9.5 mg/dl (8.4-10.2); Carbon Dioxide 16 mmol/L (22-30); Chloride 113 mmol/L (98-107); Estimated Creatinine Clearance 22 ml/min; Glucose 86 mg/dl (70-99); Magnesium 1.9 mg/dl (1.6-2.3); Phosphorus 3.8 mg/dl (2.5-4.5); Potassium 4.2 mmol/L (3.5-5.1); Sodium 139 mmol/L (135-145)
--- NOTE | 2024-02-27 07:26 | W.PN.UPDATE ---
Update Note
Progress Note Update
Patient for TAVR today
Transferred into CTS service.
Hospitalist will sign off.
[2024-02-27 08:15] LABS: ACT-LR - POC 294 Seconds (116-155)
[2024-02-27 08:31] LABS: ACT-LR - POC 236 Seconds (116-155)
[2024-02-27 08:46] LABS: ACT-LR - POC 292 Seconds (116-155)
--- NOTE | 2024-02-27 09:02 | CM ---
Patient in OR today for TAVR.
CM to follow for DC planning needs.
--- NOTE | 2024-02-27 09:05 | W.IMMPOSTOP ---
Surgical Immed Post Op Note
-
[id number]
STRUCTURAL HEART PROCEDURE NOTE:
Preoperative Dx:
Severe aortic stenosis (P/M: 126/79mmHg; JEAN CLAUDE 0.7)
Moderate aortic insufficiency
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
HFpEF
Prolonged QT
Anemia
GIB
OA
Discoid lupus
Postoperative Dx:
Same
LVEDP 22
Procedures:
1) R KNAPSACK SPRAYER access w/ tactile, U/S, and fluoroscopic guidance, micropuncture technique, limited angiography, 8Fr dilator placement
2) Perclose placement x 2 into R KNAPSACK SPRAYER, 8Fr sheath placement
3) L CFV access w/ U/S and fluoroscopic guidance, micropuncture technique, 6Fr sheath placement
4) L KNAPSACK SPRAYER access w/ tactile, U/S, and fluoroscopic guidance, micropuncture technique, limited angiography, 6Fr sheath placement
5) Placement of temporary RV pacing wire, threshold testing
6) Placement of pigtail catheter in NCC w/ limited aortography & confirmation of cusp-overlap views
7) Placement of 14Fr COOK sheath into R KNAPSACK SPRAYER
8) Wire purchase across stenotic AV (4th attempt); AL-1, soft-tip straight, table J-wire; AL-2, soft-tip straight, table J wire, pigtail catheter, LVEDP assessment, nawaf
9) Fluoroscopic inspection of Evolut FX valve
10) Pre-TAVR BAV w/ 22 SWAPNA
11) R TF TAVR w/ placement of 29mm Evolut FX
12) Removal of ctpcj-ipngkhdv-njargp w/ replacement of COOK sheath
13) Post-TAVR BAV x 2 w/ 24 TRUE
14) Completion TTE (mean gradient 10mmHg, wtat-qq-daxrosad PVL)
15) Completion aortography
16) Removal of COOK sheath w/ R KNAPSACK SPRAYER mgmt w/ perclose x 2; manual pressure
17) Completion R ileofemoral angiography
18) Removal of temporary pacing wire
19) Removal of L KNAPSACK SPRAYER 6Fr sheath w/ mgmt w/ 6Fr angioseal; manual pressure
20) Removal of L CFV 6Fr sheath w/ mgmt w/ manual pressure
Wire Worker:
Dr. Ko Zamudio
Cardiac Surgeon:
Dr. Carlos Cordova
Anesthesia:
MAC & local to B/L groins
Cath Data:
Start: 0747hrs, Deploy: 0840hrs, End: 0903hrs
FT: 28.7min, mGy: 379.26, DAP: 50.3442, Contrast: 72 visi
Post-TTE: mean gradient 10mmHg, qkow-pl-ymdmdnco PVL
Complications:
None
Implants:
Perclose x 2
6Fr angioseal x 1
Evolut Fx 29mm [id number]
Condition:
Stable/guarded to recovery
--- NOTE | 2024-02-27 09:22 | ITS.CL.TAVR ---
Enrollment Eligibility Representative - TAVR Report
TAVR PRocedure
Procedure Report:
TRANSCATHETER AORTIC VALVE REPLACEMENT REPORT
Date: 02/27/2024
Referring physician: Joao Torres M.D.
Preop diagnosis: Severe, calcific aortic valve stenosis.
Postop diagnosis: Severe, calcific aortic valve stenosis.
Procedure: Aortic balloon valvuloplasty using a #22 valvuloplasty balloon, Transcatheter aortic valve replacement (TAVR) using a # 26 Medtronic CoreValve Evolut Pro, post dilation of the TAVR valve using a #24 true balloon.
Operators: Ko Zamudio DO, Carlos Cordova M.D.
Findings: Severely calcified and stenotic aortic valve.
Anesthesia: Concious sedation was provided by the anesthesia staff.
Estimated blood loss: Negligable.
Complications: None.
Condition: Stable
Procedure:
The patient was brought to the cardiac laborer tan house after consent and was prepped and draped in standard sterile fashion. Conscious sedation was provided by the anesthesia staff. After a 'Time Out,' bilateral common femoral arteries and the left
common vein were access using a modified Seldinger technique with a micropuncture kit under ultrasound guidance. A 6 Danish sheath was placed in the left femoral vein. Angiography performed through the micropuncture sheath confirmed satisfactory
arterial placement in the right and left common femoral arteries. The micropuncture sheath was replaced with a 6Fr sheath in the left common femoral artery. In the right common femoral artery, the micropuncture sheath was removed and an 8 Danish
dilator was advanced over the wire. The dilator was removed and the right common femoral artery was preclosed with 2 Perc-Close devices. An 8 Danish sheath was placed in the right common femoral artery. A temporary pacing wire was advanced through
the left femoral vein and into the right ventricle. The pacemaker demonstrated good capture and was set to back up. A 5Fr pigtail catheter was advanced through the left femoral sheath and seated in the non-coronary cusp. The valve overlap (TURKISH 0,
CAU 18) and three cusp co-planar (TURKISH 20, CAU 18) angles were confirmed on aortography.
An AL-1 catheter was advanced through the 8Fr sheath, the J wire was exchanged for a Lunderquist wire and the catheter and the 8 Fr sheath was removed. The 14 Fr Cook sheath was placed. The CoreValve was prepared on the back table and then
inspected under fluoroscopy. Infolding of the valve was no higher than the 4th node. The AL-1 catheter was advanced over the Lunderquist wire, which was then removed. The catheter was flushed and a straight wire was advanced through the AL-1
catheter. The straight wire was unable to cross the valve through the AL-1 catheter. The straight wire was removed and we made an attempt with the table J-wire which was also not successful. The AL-1 catheter was exchanged for an AL 2 catheter
and the straight wire was able to cross the valve with significant difficulty. The AL-2 catheter was prolapsed into the left ventricle. The straight wire was exchanged for an exchange length J-wire and the AL-2 catheter was subsequently exchanged
for a 5 Fr pigtail catheter. The double curve Lunderquist wire was advanced through the pigtail catheter and placed in the apex of the left ventricle. The pigtail catheter was removed.
A 22 mm valvuloplasty balloon was advanced over through the Cook sheath and seated at the level of the aortic valve. The patient underwent valvuloplasty under rapid pacing. The valvuloplasty balloon was removed over the Lunderquist wire.
The Cook sheath was removed and the in-line sheath was advanced over the Lunderquist wire through the RCFA into the descending aorta. The CoreValve was then advanced over the aortic arch and into the left ventricle. In the cusp overlap view, the
valve was slowly deployed to the point of flowering. The patient was rapidly paced in a de-escalating rate (from 140 bpm to 80 bpm) as the valve was deployed through the rumble strips to 80%. Injection confirmed a non-coronary cusp implant depth
of 4�5 mm. The image intensifier was taken to the 3 cusp overlap view to remove paralax. Injection in this view confirmed left coronary cusp implant depth of 4 mm. The decision was made to proceed with full deployment. The delivery handle with
slowly rotated counter clockwise until both paddles were released from the superior aspect of the valve. The Lunderquist wire was partially withdrawn to lift the nosecone of the valve delivery device. The delivery device was withdrawn to the
descending aorta and re-assembled.
Evaluation showed severe constriction of the TAVR valve. The decision was made to perform post dilation. The inline sheath was withdrawn and the Cook sheath was replaced in the right common femoral artery. A 24 mm true balloon was advanced over
the Lunderquist wire. The TAVR valve was postdilated at the root under rapid pacing. There was incomplete expansion of the proximal portion of the balloon consistent with the known constriction. The balloon was further de-aired and extra contrast
and saline was added to the inflation syringe. A second postdilation was performed higher in the valve with significant expansion of the valve. The post dilation balloon was removed.
Transthoracic echocardiogram showed mild to moderate paravalvular insufficiency. Aortogram showed good valve deployment and mild aortic valve insufficiency. Mean gradient across the valve was 10 mmHg by echo. The patient has a known part of
calcium extending from the LVOT onto the aorta mitral curtain and the anterior mitral valve. Given the improvement in aortic regurgitation from moderate at baseline to mild to moderate after TAVR valve with reduction in transvalvular gradient from
79 mmHg to 10 mmHg, we did not believe that further post dilation of the valve would yield any significant benefit and could potentially lead to significant complications.
The inline sheath was removed over the Lunderquist wire and hemostasis was achieved using the two Perc-Close devices. Lower extremity angiography showed excellent hemostasis and good runoff without evidence perforation or extravasation. The
pigtail catheter was removed over a J-wire and the left [employer] was closed using a 6-Fr Angioseal. There was no evidence of consistent pacing requirement. The temporary pacer was removed. The venous sheath was removed. Manual pressure was applied
with good hemostasis of the left venous access. The patient was taken to recovery in good condition.
Implant Depth
Non-Coronary (mm): 4�5
Left Coronary (mm): 4
Radiation
Dose (mGy): 379.26
DAP (cm2.Gy): 50.3442
Fluoroscopy time (minutes): 28.7
TAVR Echo Gradient (mmHg): 10
LV (s/x, mmHg): 179/22
TAVR Cath Gradient (mmHg): Not obtained.
Conclusions:
1. Successful placement of #29 CoreValve Evolute Pro using a left percutaneous transfemoral approach with no acute complications.
2. Residual mild to moderate paravalvular aortic valve insufficiency, improved from moderate aortic valve insufficiency in the [place] valve.
3. Moderately elevated filling pressures (LVEDP = 22 mmHg at 59.0 kg).
Ko Zamudio DO, FACC, FACP
Copy: Joao Torres M.D., Allyson Marie D.O.
--- NOTE | 2024-02-27 09:24 | W.PN.UPDATE ---
Update Note
Progress Note Update
Reviewed Ms. Drummond with the heart team in the preTAVR SDM meeting and confirmed a 29mm Evolut via (R) transfemoral access. She will resume Eliquis post TAVR. LVEDP 22mmHg. # 29mm Evolut (serial#[id number]) successfully deployed via right transfemoral
access. Post implant MG 10mmHg.
[2024-02-27] MEDS: LEVOPHED 250 IV ×2 (09:36→19:59)
[2024-02-27] MEDS: ANCEF 10 IV ×2 (12:00)
[2024-02-27] MEDS: TAPAZOLE 10 MG PO (15:15)
[2024-02-27] MEDS: ANCEF 5 IV (16:00)
--- NOTE | 2024-02-27 16:15 | PTCARENOTE ---
Patient sat at side of bed: BP was 74/47. LUZ MARINA Oglesby made aware: Restart levophed to maintain MAP greater than 65mmhg
[2024-02-27] MEDS: PACERONE PO (19:11)
[2024-02-27] MEDS: SODIUM BICARBONATE PO (19:12)
--- NOTE | 2024-02-27 20:42 | PTCARENOTE ---
[facility]; pt is AAOx4; NSR/SB with occassional PAC's, HR 60's, B/P's 98/50, Levo @ 4mcg running in L midline, + pulses, - edema; Lungs clear on auscultation, diminished in bases; PW placed, Illestomy intact with 300 output, R & L
femoral sites C/D/I; R PIV flushes; discussed use of midline with pt and plan of care; pt resting in bed.
[2024-02-27] MEDS: DILAUDID 0.25 MG IV (21:37)
[2024-02-28] VITALS (41 sets, daily range): BP systolic 65–129; BP diastolic 30–70; PULSE 66; O2SAT 97–98; BMI 24.7
--- NOTE | 2024-02-28 | PTCARENOTE ---
pt AAOx4, no neurological deficits noted, pt is back to sleep, no changes from prior nursing assessment.
--- NOTE | 2024-02-28 05:37 | W.PN.CT ---
Addendum entered and electronically signed by Carlos Cordova MD 02/28/24 13:42:
I saw and examined the patient.
The PA's note was reviewed and I agree with the note.
Comment:
Postop day #1 status post right transfemoral TAVR with placement of a 29 mm Evolut Fx
Remains on low-dose Levophed, will continue to wean
Patient with new left bundle branch block, will arrange for outpatient rhythm monitoring (no pauses or significant bradycardia)
Echo today has been completed with peak/mean gradients of 28/15 mmHg respectively with mild to moderate PVL, LVEF 65 to 70%
Will plan to resume Eliquis later today versus tomorrow
Discharge planning for hopefully tomorrow.
Original Note:
Today's Communication / Plan
-
-pod #1
-no issues overnight
-drips: Levo
-hypotensive, asymptomatic
-new LBBB postop - holding Amio and BB
-in nsr 60s. No significant kusum or pauses
-labs pending
-Eliquis to start 02/27
-follow Cr- pending (1.7 preop)
-Echo today
-current meds (Tapazole, Eliquis). Amio and BB held d/t kusum/new LBBB
-encourage IS, OOB
Assessment / Plan
-
- Severe symptomatic - s/p Pre-TAVR BAV w/ SWAPNA followed by R TF TAVR w/ placement of 29mm Evolut FX and Post-TAVR BAV x 2 w/ 24 TRUE on 02/27/24, pod #1
- Acute on chronic diastolic CHF, LVEDP 22
- Post-TTE: mean gradient 10mmHg, ceiq-ri-hjplfoav PVL
- Moderate aortic insufficiency
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
- Prolonged QT
- Chronic Anemia- s/p 2 pRBCs on 02/25/24 for Hg 7.5
- Hx multiple blood transfusions
- CKD 3b with recent JAKY (Cr 1.3 in January 2024, 2.3 peak on 02/25/24 and 1.7 pre-TAVR)
- Paroxysmal a-fib, on Amio and Eliquis preop- recent a-fib with RVR 130s
- Hyperthyroid - on Methimazole
- Hx GIB
- s/p 11/28 robotic low anterior resection with takedown of splenic flexure and diverting loop ileostomy
- Hiatal hernia
- Malignant rectal tumor, s/p [employer]
- OA
- Discoid lupus
- Hx measles/chicken pox
- Hx pneumonia
- Former smoker, quit 10 years ago
- Acute on chronic postop hypotension
- Acute postop LBBB
Discussed patient care with: Nursing and Care Team
Subjective
Procedure
- s/p Pre-TAVR BAV w/ SWAPNA followed by R TF TAVR w/ placement of 29mm Evolut FX and Post-TAVR BAV x 2 w/ TRUE on 02/27/24
-
Date of Service: February 27, 2024
Objective Data
-
Lab Results
02/27/24 05:21
02/27/24 05:21
PT 14.8 Sec (11.4-14.6) H 02/25/24 06:28
INR 1.18 02/25/24 06:28
APTT 108.6 Sec (23.4-35.0) H 02/27/24 05:21
Vital Signs
Vital Signs
Temp Pulse Resp BP Pulse Ox
99.5 F 64 16 102/43 94
02/27/24 20:36 02/27/24 22:00 02/27/24 20:36 02/27/24 22:00 02/27/24 22:29
CT Intake/Output/Weight
02/27/24 02/27/24 02/28/24
06:59 18:59 06:59
Intake Total 99 / 458 2197.5 / 2197.5
Output Total 1100 / 1400 300 / 1400
Balance 99 / 458 1097.5 / 797.5 -300 / 797.5
SaO2: 94
Physical Exam
-
General: Awake and AOx3
Cardiovascular: Regular rate & rhythm and Murmur (1/6 systolic @ lsb)
Respiratory: Clear
Incision: Other (groins are cdi, soft, nontender, no hematoma b/l)
Extremities: No Edema (2+DPs b/l)
Data Reviewed
-
Lab Results: Results Reviewed
Medications: Active Meds Reviewed
Chest X-Ray: Report Reviewed and Image Reviewed
ECG: Report Reviewed and Image Reviewed
[2024-02-28 05:38] LABS: Hematocrit 27.1 % (37.0-47.0); Hemoglobin 9.3 g/dL (12.0-16.0); Mean Corp Hgb Conc. 34.3 g/dL (33.0-37.0); Mean Corpuscular Hgb 32.4 pg (27.0-31.0); Mean Corpuscular Volume 94.4 fL (81.0-99.0); Mean Platelet Volume 10.4 fL (7.4-10.4); Platelet Count 146 10^3/uL (130-400); Red Blood Cell Count 2.87 10^6/uL (4.20-5.40)
--- NOTE | 2024-02-28 05:46 | PTCARENOTE ---
pt AAOx3, no neurological deficits; pt continues with L arm discomfort, elevated on pillow, +circulation, sensation, and mobility to L upper extremity, no c/o numbness or tingling, levophed drip at 3 mcg/min (11.3 ml/hr); RA, no complaint of SOB, Pt
given CHG bath and linens changed, external female urinary female catheter in place (Pure wick), am labs collected and sent; ecg completed; portable x-ray completed; pt resting in bed without difficulty; assessment/interventions as documented.
[2024-02-28 05:59] LABS: Blood Urea Nitrogen 40 mg/dl (7-17); Calcium 9.5 mg/dl (8.4-10.2); Carbon Dioxide 17 mmol/L (22-30); Chloride 112 mmol/L (98-107); Estimated Creatinine Clearance 29 ml/min; Glucose 88 mg/dl (70-99); Potassium 4.5 mmol/L (3.5-5.1); Sodium 139 mmol/L (135-145); eGFR 42.35
--- NOTE | 2024-02-28 07:01 | W.PN.CD ---
Today's Communication / Plan
-
Ambulate.
Incentive spirometry.
TTE.
Continue to hold apixaban for the time being.
Wean norepinephrine.
Plan for outpatient monitor (RhythmStar).
Impression / Plan
-
Impression/Plan: 78 y/o female with a history of rectal CA complicated by continuous rectal bleeding unresponsive to APC (11/05/2023) and requiring recurrent transfusions, s/p LAR with diverting loop ileostomy on 11/12/2023, paroxysmal atrial
fibrillation and critical, symptomatic aortic valve stenosis admitted from [facility] with AF/RVR, acute on chronic anemia and JAKY for expedited TAVR.
#Critical aortic stenosis
-Chronic.
-Mean gradient 79 by echo, 40's by cath (performed in atrial fibrillation).
-S/P #29 Medtronic CoreValve, post dilated with a #24 True Balloon.
-Bilateral femoral access sites are C/D/I.
-Antithrombotic therapy with aspirin to start, transition to apixaban as we are more confident in her GIB status.
-EKG/Tele shows new LBBB, no significant pauses.
-Routine post procedure TTE today.
-Slow weaning of norepinephrine.
-Encourage ambulation, incentive spirometry.
-She will need a RhythmStar prior to discharge.
#Severe anemia
-Acute on chronic.
-No evidence of acute bleeding.
-Hbg 9.3 <-- 9.8.
-Transfused 2 units of PRBCs with furosemide in between prior to TAVR.
-Hold apixaban.
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
#Paroxysmal atrial fibrillation
-Patient previously known to have A-fib and maintained on amiodarone although the dose was only 100 mg a day due to previous bradycardia.
-Currently in NSR.
-Blood pressure limits treatment options and severe aortic stenosis limited treatment options.
-Rate/rhythm control with amiodarone.
-CHADS2-Vasc = 4 (CHF, Age x2, Female).
-Continue to hold apixaban in light of NSR/anemia.
-She may be a good LAAO candidate in the future.
#Rectal cancer
-S/P LAR with diverting loop ileostomy, prior FOLFOX.
-Colorectal surgeon Dr. Tenorio
-Oncologist Dr. Henderson
#JAKY
-Creatinine peaked at 2.3, likely related to hemodynamics with A-fib and lower pressures.
-Creatinine slowly improving, now 1.3.
-Limit nephrotoxins.
#Hyperthyroidism
-Chronic, improved based on last set of TFTs.
-Continue methimazole.
-Monitor with amiodarone use.
Critical Care Time = 33 minutes.
Subjective/Interval History:
S/P #29 Medtronic CoreValve TAVR yesterday.
Weight is up 1.8 kg.
She had some post procedural hypotension is has been maintained on norepinephrine overnight.
This is slowly being weaned off.
DATA:
Cardiac Catheterization, 02/04/2024:
CONCLUSIONS
1:�Severe aortic stenosis with mean gradient 44 mmHg-this is an approximation as the patient is in atrial fibrillation
2:�Single-vessel CAD with 80-90% stenosis in the midportion of a nondominant RCA. This will be treated medically.
3. Continue with TAVR evaluation.
TTE, 01/15/2024:
CONCLUSIONS
Normal left ventricular size with severe concentric hypertrophy and normal
systolic function. No regional wall motion abnormalities are seen. LV ejection
fraction is 65-70% by Goff's method of discs. Stage II diastolic dysfunction
suggestive of abnormal relaxation and increased filling pressures.
Normal right ventricular size and function.
Severe left atrial dilation.
Mild right atrial dilation.
Mitral annular calcification with extension onto the anterior mitral leaflet.
Moderate mitral regurgitation.
Thickened aortic valve with restricted leaflet motion, critical aortic stenosis
and moderate regurgitation.
Color flow pattern suggestive of small PFO.
Mild pulmonary hypertension. PASP estimated 44 mmHg.
Physical Exam
Vital Signs/Labs
Vital Signs
Temp Pulse Resp BP Pulse Ox
36.8 C 68 16 110/54 94
02/28/24 05:31 02/28/24 06:00 02/28/24 05:31 02/28/24 06:00 02/27/24 23:13
02/26/24 02/27/24 02/28/24
11:59 11:59 11:59
Actual Weight 59.4 kg 59.4 kg 61.2 kg
02/28/24 05:12
02/28/24 05:12
PT 14.8 Sec (11.4-14.6) H 02/25/24 06:28
INR 1.18 02/25/24 06:28
APTT 108.6 Sec (23.4-35.0) H 02/27/24 05:21
Magnesium 1.9 mg/dl (1.6-2.3) 02/27/24 05:21
02/21/24 02/24/24
12:12 12:37
Mvq-C-Nxyefogkjer Pept Cancelled 8650
Physical Exam
Constitutional: No acute distress and Comfortable
EENT: Anicteric and Moist mucous membranes
Cardiovascular: Rhythm & rate is regular, Pedal edema is absent, JVD pressure is normal, Diastolic murmur present and S1S2 is normal
Respiratory: Respiratory effort normal, Lungs clear to auscul., Wheeze Absent, Crackles Absent and Rhonchi Absent
GI: Soft, Distention absent, Flat, Non tender, Normal bowel sounds and Other (Ileostomy in place.)
Neuro/Psych: AO x 3
Other: Cath Site (Bilateral femoral access sites are C/D/I.)
Data Reviewed
-
Date of Service: February 28, 2024
Medical Decision Making: Reviewed Test Results, Independent Historian Assessment and Test Interpretation
EKG: Tracing Personally Visualized and interpreted and Report Reviewed by me
Echo: Tracing Personally Visualized and interpreted and Report Reviewed by me
X-Ray/CT/US/MRI/NUC/PET: Image Personally Visualized and interpreted and Report Reviewed by me
Medical Tests (PFT, Pathology etc): Image Personally Visualized and interpreted and Report Reviewed by me
Labs: Labs Reviewed by me
--- NOTE | 2024-02-28 07:32 | W.PN.ANS.POP ---
Anesthesia Post Operative
- Anesthesia Post Op Note
Vital Signs Stable-See Nursing Note: Yes (acute on chronic postop hypotension, no vasopressors currently infusing.)
Airway Patent: Yes
Adequate Pain Control: Yes
Change in Mental Status: No
Current Postoperative Nausea & Vomiting: No
Anesthesia Complications: No
General Anesthetic Recall: No
Unplanned Admission: No
Post Op Hydration Adequate: Yes
[2024-02-28] MEDS: ELIQUIS 2.5 MG PO (08:32)
[2024-02-28] MEDS: TAPAZOLE 10 MG PO (12:53)
[2024-02-28] MEDS: ProAmatine 5 MG PO ×3 (12:53→17:41)
[2024-02-28] MEDS: ASPIR LOW (ENTERIC COATED) 81 MG PO (12:53)
--- NOTE | 2024-02-28 16:12 | CM ---
spoke to pt in room, dc plans remains home when medically stable with CT transitional care nurse f/u.
--- NOTE | 2024-02-28 19:56 | PTCARENOTE ---
Received pt from [facility], walking rounds completed; pt is AAOx3 with no neuro deficits noted. Pt assessment completed in bed. Pt is in SR on tele with rates in the 60's. BP stable, denies pain, shortness of breath and nausea. Bilateral radial and
DP pulses palpable. Negative edema noted. Lungs clear, POX 98% on RA. No cough noted. Abdomen soft, nontender. +BS. Ileostomy intact, pt reports self care of ileostomy; pt is able to ambulate independently to the bathroom, voiding clear yellow
urine. Scattered bruising noted. Right arm 20g PIV intact and flushes; Plan of care reviewed with pt, See worklist for complete nursing assessment.
--- NOTE | 2024-02-28 23:14 | PTCARENOTE ---
VSS. NSR/SB, P - 57-60's, pt negative for pain or nausea. Pt ambulated to bathroom, emptied ileostomy bag. Pt resting comfortably in bed.
--- NOTE | 2024-02-28 23:22 | PTCARENOTE ---
VSS. NSR/SB, HR:57-60's, pt negative for pain or nausea. Pt ambulated to bathroom, emptied ileostomy bag. Pt resting comfortably in bed. Nursing assessment unchanged from prior.
[2024-02-29] VITALS (21 sets, daily range): BP systolic 79–128; BP diastolic 39–99; PULSE 65; O2SAT 100; BMI 24.2
--- NOTE | 2024-02-29 03:40 | PTCARENOTE ---
VSS, Pt is AAoX3, no neuro deficits; NSR/SB, HR- 56. Pt denies pain or nausea. Daily wt and morning labs obtained. Nursing assessment unchanged from prior.
[2024-02-29 03:44] LABS: Hematocrit 28.5 % (37.0-47.0); Hemoglobin 9.4 g/dL (12.0-16.0); Mean Corpuscular Hgb 31.9 pg (27.0-31.0); Mean Corpuscular Volume 96.6 fL (81.0-99.0); Mean Platelet Volume 10.8 fL (7.4-10.4); Platelet Count 145 10^3/uL (130-400); Red Blood Cell Count 2.95 10^6/uL (4.20-5.40); Red Cell Dist. Width 17.1 % (11.5-14.5); White Blood Cell Count 5.1 10^3/uL (4.8-10.8)
[2024-02-29 03:56] LABS: Blood Urea Nitrogen 41 mg/dl (7-17); Calcium 9.8 mg/dl (8.4-10.2); Carbon Dioxide 18 mmol/L (22-30); Chloride 113 mmol/L (98-107); Estimated Creatinine Clearance 31 ml/min; Glucose 89 mg/dl (70-99); Potassium 4.4 mmol/L (3.5-5.1); Sodium 140 mmol/L (135-145); eGFR 46.62
--- NOTE | 2024-02-29 04:58 | W.PN.CT ---
Today's Communication / Plan
-
Looks and feels well
Much more comfortable with midline IV removed
Plan for discharge today with rhythm star
BP stable on low-dose midodrine
Creatinine has come down nicely. 1.2 this morning.
Aspirin only for valve
Assessment / Plan
-
- Severe symptomatic - s/p Pre-TAVR BAV w/ SWAPNA followed by R TF TAVR w/ placement of 29mm Evolut FX and Post-TAVR BAV x 2 w/ 24 TRUE on 02/27/24, pod #2
- Acute on chronic diastolic CHF, LVEDP
- Post-TTE: mean gradient 10mmHg, iokd-yl-gkxjfsah PVL
- Moderate aortic insufficiency
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
- Prolonged QT
- Chronic Anemia- s/p 2 pRBCs on 02/25/24 for Hg 7.5
- Hx multiple blood transfusions
- CKD 3b with recent JAKY (Cr 1.3 in January 2024, 2.3 peak on 02/25/24 and 1.7 pre-TAVR)
- Paroxysmal a-fib, on Amio and Eliquis preop- recent a-fib with RVR 130s
- Hyperthyroid - on Methimazole
- Hx GIB
- s/p 11/28 robotic low anterior resection with takedown of splenic flexure and diverting loop ileostomy
- Hiatal hernia
- Malignant rectal tumor, s/p SOAP SLABBER
- OA
- Discoid lupus
- Hx measles/chicken pox
- Hx pneumonia
- Former smoker, quit 10 years ago
- Acute on chronic postop hypotension
- Acute postop LBBB
Subjective
Procedure
- s/p Pre-TAVR BAV / SWAPNA followed by R TF TAVR w/ placement of 29mm Evolut FX and Post-TAVR BAV x 2 w/ 24 TRUE on 02/27/24
-
Date of Service: February 29, 2024
No new issues overnight. Sleeping soundly. Eager to go home.
Objective Data
-
Lab Results
02/29/24 03:12
02/29/24 03:12
PT 14.8 Sec (11.4-14.6) H 02/25/24 06:28
INR 1.18 02/25/24 06:28
APTT 108.6 Sec (23.4-35.0) H 02/27/24 05:21
Vital Signs
Vital Signs
Temp Pulse Resp BP Pulse Ox
98.1 F 82 16 103/57 98
02/29/24 03:05 02/29/24 03:05 02/29/24 03:05 02/29/24 03:05 02/29/24 03:05
CT Intake/Output/Weight
02/28/24 02/28/24 02/29/24
06:59 18:59 06:59
Intake Total 866.4 / 3063.9 332.5 / 572.5 240 / 572.5
Output Total 800 / 1900
Balance 66.4 / 1163.9 332.5 / 572.5 240 / 572.5
SaO2: 98
Physical Exam
-
General: Awake and Oriented
Cardiovascular: Regular rate & rhythm
Respiratory: Clear and Equal
Data Reviewed
-
Lab Results: Results Reviewed
Medications: Active Meds Reviewed
--- NOTE | 2024-02-29 07:48 | PTCARENOTE ---
Patient received from shift foreman resting comfortably in bed, AAO X 3, denies pain. NSR/SB via cm, SaO2 @ 97% on RA. B/L groin sites cdi, no hematomas noted, distal pulses palpable. Ileostomy intact, patient self care. Patient updated to plan of
care for the day, hoping for d/c. See work list for full assessment and interventions performed.
[2024-02-29] MEDS: ASPIR LOW (ENTERIC COATED) PO (08:11)
[2024-02-29] MEDS: ProAmatine 5 MG PO ×4 (08:13→19:38)
[2024-02-29] MEDS: ELIQUIS 5 MG PO ×2 (08:13→20:06)
--- NOTE | 2024-02-29 08:17 | W.DCSUMMARY ---
Discharge Summary
Discharge Data
Date of Admission: 02/24/24
Date of Discharge: 03/01/24
-
Pending Results: No
Hospital Course
Primary care physician: Willie Ryan
Outpatient manager pacu: Joao Torres
Inpatient consultants: [facility] Cardiology
Procedures:
1. TAVR
Primary Diagnosis:
1. severe aortic stenosis
Secondary Diagnoses:
1. 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
2. HFpEF (Stage II diastolic dysfunction)
3. Discoid lupus
4. Hx malignant rectal tumor (stage IIIb status postchemotherapy/radiation), s/p diverting loop ileostomy (11/2023)
5. Acute on Chronic anemia
6. Hyperthyroidism (medication induced)
7. Paroxysmal atrial fibrillation
8. JAKY on CKD(IIIa-GFR 46)
9. Hx of GI Bleed
10. CAD (80-90% RCA stenosis)
11. post-op LBBB
12. Post-op hypotension
13. Depression
HPI: 78-year-old female known to CT service from recent TAVR evaluation. Patient developed shortness of breath over the weekend which increased in severity. She presented to the emergency room on 02/24/2024 and was admitted.
Hospital course: On admission, patient was found to be in A-fib with RVR and was hypotensive. Creatinine was 2.1, with baseline of 1.3. Cardiology was consulted and Heparin/amiodarone infusion initiated. Patient received 2 PRBC for anemia and
was diuresed with Lasix 40mg IV. Patient underwent R TF TAVR w/ placement of 29mm Evolut FX with Drs. Cordova/Robb on 02/27/24. A new LBBB was noted and Rhythm Star monitor ordered for home. Levophed was utilized post-op for low blood pressure and
Midodrine initiated. Levophed was discontinued on 02/27/24. On 02/27, creatinine decreased to 1.3 (patient's baseline). Pre-discharge TTE reported an EF 65-70% with Stage II diastolic dysfunction. AV 28/15mmHG with mild-mod PVL and mild-mod TR. Home
Eliquis was resumed on 02/28 and ASA discontinued. Home dosing of Amiodarone was reinstituted as patient has refused higher doses
d/t iatrogenic hyperthyroidism in past. While ambulating in hallway, patient developed brief (<10min) AF with RVR (130s) which converted to SR with rest. Patient has had severe hypotension with prior attempts with beta blockade so this medication
class will be avoided. AF rhythm persisted throughout hospital stay. Cardiology recommends to continue current medications on discharge. Midodrine will be continued on discharge.
Home medication changes:
New:
Midodrine to support blood pressure
Discharge Plan
-
Patient Disposition: Home (Routine Discharge)
Discharge Diagnosis/Procedures: /TAVR
Condition: Fair
Diet: Low Cholesterol and Low Sodium
Activity: No strenuous activity
Bathing Restrictions: OK to Shower
Others Tests: 30 day follow up echocardiogram: 03/30/2024 @ 9:20 at [facility]
Other Services: Cardiac Rehab
Specialty Instructions: Weigh Daily- Call MD for wt gain/loss 3 lbs overnight/5 lbs in 1 week
Referrals:
CT Transitional Care Nurse [Outside] (The Cardiothoracic Transitional Care Nurse will call you to set up a visit in 1-2 days.)
Joao Torres MD [Active] - 03/18/24 1:40 pm
(Please note: appointment is at [facility]
[address]/2nd floor
JUSTA Watson)
Willie Ryan DO [Family Provider] -
PRIVATE,PHYSICIAN [Active] -
Prescriptions:
New
acetaminophen 325 mg Tablet
650 mg PO Q4HPRN PRN (Reason: RICH, mild pain, or fever >101F) Qty: 0 0RF
midodrine 5 mg Tablet
5 mg PO TID@0800,1300,1800 Qty: 90 0RF
Continued
cyanocobalamin (vitamin B-12) [Vitamin B-12] 1,000 mcg Tablet
1,000 mcg PO DAILY@1300 Qty: 0
vitamin B complex Tablet
1 tab PO DAILY@1300
pantothenic acid (vit B5)
1 tab PO DAILY@1300
biotin 10,000 mcg Capsule
10,000 mcg PO DAILY@1300
methimazole 10 mg Tablet
10 mg PO DAILY@1300
ascorbic acid (vitamin C) [Vitamin C] 1,000 mg Tablet
1,000 mg PO DAILY@1300
Alive Women's 50 Plus (blend) 240-120-300 mcg Tablet
1 tab PO DAILY@1300
quercetin 500 mg Capsule
500 mg PO DAILY@1300
BoneUp 333 mg-8.3 mcg-116.7 mg Capsule
1 cap PO DAILY@1300
abzmhdlt-zlvgtafzai-dcob-hops 515 mg Capsule
1 cap PO DAILY@1300
amiodarone 200 mg tablet
200 mg PO Q48H
amiodarone 100 mg tablet
100 mg PO Q48H
Eliquis 5 mg Tablet
5 mg PO BID 30 Days Qty: 60 0RF
Discharge Orders:
Discharge Patient (As Directed); Ordered 03/01/24
Ordered By: Reny Borjas
Care Plan Goals
Care Plan Goals:
Problem: Readiness for enhanced knowledge related to diagnosis and treatment plan
Goal: Understand your diagnosis and treatment plan needs, including medications if applicable.
Instructions: Know your diagnosis, underlying causes and treatment plan options, including medications if applicable. Consult with your health care team to learn about your diagnosis and treatment plan, including medications if applicable.
Discharge Date and Time
Print Language: UPPER SORBIAN
[2024-02-29] MEDS: PACERONE 200 MG PO (08:54)
--- NOTE | 2024-02-29 09:28 | W.PN.UPDATE ---
Addendum entered and electronically signed by Carlos Cordova MD 02/29/24 09:46:
Pt. was NOT receiving her home amiodarone dose while in the hospital. In addition, she relates a history of bad reactions to beta-blockers with significant hypotension.
Have resumed patient's home amiodarone dosing. Will hold on BB for now. Continue inpatient monitoring today. Pt. agreeable with plan.
Original Note:
Update Note
Progress Note Update
CARDIAC SURGERY ATTENDING:
Postop day #2 status post right transfemoral TAVR replacement 29 mm Evolut Fx
Patient with minor hypotension post procedurally requiring Levophed infusion. Her Levophed has been weaned to off. Her blood pressure is stable on low-dose midodrine. Her creatinine has recovered to 1.2.
Unfortunately, this a.m. with ambulation, the patient developed A-fib with RVR very briefly with a rate into the 130s. Upon resting, she rapidly regained normal sinus rhythm in the 70s. Patient with history of paroxysmal A-fib on chronic Eliquis.
Postop day 1 echo with peak/mean gradients of 28/50 mmHg expectedly with mild to moderate PVL and LVEF of 65 to 70%. The patient had a new left bundle branch block post her TAVR procedure without any episodes of pauses or significant bradycardia.
Outpatient monitoring has been arranged.
Continue amiodarone 200 mg p.o. every other day, alternating with the 100 mg p.o.
Start low-dose beta-lyndsay today, monitor blood pressure response
Discharge planning for potentially tomorrow
Out of bed, ambulate, I-S
--- NOTE | 2024-02-29 09:34 | W.PN.CD ---
Today's Communication / Plan
-
- OK to resume Eliquis and Amiodarone
- Hold Toprol
- Rhythmstar at discharge.
Impression / Plan
-
Impression/Plan: 78 y/o female with a history of rectal CA complicated by continuous rectal bleeding unresponsive to APC (11/05/2023) and requiring recurrent transfusions, s/p LAR with diverting loop ileostomy on 11/12/2023, paroxysmal atrial
fibrillation and critical, symptomatic aortic valve stenosis admitted from [facility] with AF/RVR, acute on chronic anemia and JAKY for expedited TAVR.
#Critical aortic stenosis
-Chronic.
-Mean gradient 79 by echo, 40's by cath (performed in atrial fibrillation).
-S/P #29 Medtronic CoreValve, post dilated with a #24 True Balloon.
-Bilateral femoral access sites are C/D/I.
-OK for apixaban 5 mg bid
-EKG/Tele shows new LBBB, no significant pauses.
-Routine post procedure TTE 02/28/24 - prior TAVR gradients were 21/11 mmHg, with mild/moderate paravalvular AR.
-RhythmStar at discharge.
#Severe anemia
-Acute on chronic.
-No evidence of acute bleeding.
-Hbg 9.3 - to 9.4 today.
-s/p Transfused 2 units of PRBCs with furosemide in between prior to TAVR.
-OK to resume apixaban.
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
#Paroxysmal atrial fibrillation
-Patient previously known to have A-fib and maintained on amiodarone although the dose was only 100 mg a day due to previous bradycardia.
-Currently in NSR.
-Rate/rhythm control with amiodarone.- with bradycardia, Amiodarone and Toprol was held.
-OK to resume home amiodarone and hold Toprol.
-RhythmStar at discharge.
-CHADS2-Vasc = 4 (CHF, Age x2, Female).
-If recurrent GI bleed noted, can consider Watchman.
-She may be a good LAAO candidate in the future.
#Rectal cancer
-S/P LAR with diverting loop ileostomy, prior FOLFOX.
-Colorectal surgeon Dr. Tenorio
-Oncologist Dr. Henderson
#JAKY
-Creatinine peaked at 2.3, likely related to hemodynamics with A-fib and lower pressures.
-Creatinine slowly improving, now 1.2.
-Limit nephrotoxins.
#Hyperthyroidism
-Chronic, improved based on last set of TFTs.
-Continue methimazole.
-Monitor with amiodarone use.
Critical Care Time = 31 minutes.
Subjective/Interval History:
S/P #29 Medtronic CoreValve TAVR 02/26.
Feeling better now.
DATA:
Cardiac Catheterization, 02/04/2024:
CONCLUSIONS
1:�Severe aortic stenosis with mean gradient 44 mmHg-this is an approximation as the patient is in atrial fibrillation
2:�Single-vessel CAD with 80-90% stenosis in the midportion of a nondominant RCA. This will be treated medically.
3. Continue with TAVR evaluation.
TTE, 01/15/2024:
CONCLUSIONS
Normal left ventricular size with severe concentric hypertrophy and normal
systolic function. No regional wall motion abnormalities are seen. LV ejection
fraction is 65-70% by Goff's method of discs. Stage II diastolic dysfunction
suggestive of abnormal relaxation and increased filling pressures.
Normal right ventricular size and function.
Severe left atrial dilation.
Mild right atrial dilation.
Mitral annular calcification with extension onto the anterior mitral leaflet.
Moderate mitral regurgitation.
Thickened aortic valve with restricted leaflet motion, critical aortic stenosis
and moderate regurgitation.
Color flow pattern suggestive of small PFO.
Mild pulmonary hypertension. PASP estimated 44 mmHg.
Physical Exam
Vital Signs/Labs
Vital Signs
Temp Pulse Resp BP Pulse Ox
98 F 83 16 128/55 97
02/29/24 07:34 02/29/24 09:00 02/29/24 07:34 02/29/24 08:58 02/29/24 07:36
02/28/24 02/29/24 03/01/24
06:59 06:59 06:59
Actual Weight 61.2 kg 59.9 kg
02/29/24 03:12
02/29/24 03:12
PT 14.8 Sec (11.4-14.6) H 02/25/24 06:28
INR 1.18 02/25/24 06:28
APTT 108.6 Sec (23.4-35.0) H 02/27/24 05:21
Magnesium 1.9 mg/dl (1.6-2.3) 02/27/24 05:21
02/21/24 02/24/24
12:12 12:37
Zds-H-Yrfqgcnqovd Pept Cancelled 8650
Physical Exam
Constitutional: No acute distress and Comfortable
EENT: Anicteric and Moist mucous membranes
Cardiovascular: Rhythm & rate is regular, Pedal edema is absent, JVD pressure is normal and Systolic murmur absent
Respiratory: Respiratory effort normal, Wheeze Absent and Crackles Absent
GI: Soft, Non tender and Normal bowel sounds
Neuro/Psych: Alert, Oriented and AO x 3
Other: Cath Site
Data Reviewed
-
Date of Service: February 29, 2024
Medical Decision Making: Tests Ordered
EKG: Tracing Personally Visualized and interpreted
Echo: Report Reviewed by me
Medical Tests (PFT, Pathology etc): Image Personally Visualized and interpreted
Labs: Labs Ordered by me
Old Records: Reviewed
Critical Care Time (in minutes): 31
[2024-02-29] MEDS: TAPAZOLE 10 MG PO (12:55)
--- NOTE | 2024-02-29 13:13 | PTCARENOTE ---
VS obtained, assessment stable. Patient resting comfortably, denies pain.
--- NOTE | 2024-02-29 15:27 | PTCARENOTE ---
VS obtained, assessment stable. Patient denies SOB, pain, palpitations.
--- NOTE | 2024-02-29 16:30 | PTCARENOTE ---
Report called to EDWARD Jalloh, IVU. MARK Borjas notified pt HR elevated w/ambulation. Orders given. Patient transferred to IVU w/all belongings via wheelchair. Sister to bedside for visit.
--- NOTE | 2024-02-29 16:30 | TRANSFER ---
received pt form CVICU - assement stable, pt continues in rapid afib 130 -150. DIgoxin ordered
[2024-02-29] MEDS: LANOXIN 500 MCG IV (16:50)
[2024-02-29] MEDS: LR 500 IV (19:44)
[2024-02-29] MEDS: LANOXIN 250 MCG IV (22:03)
--- NOTE | 2024-03-01 00:12 | PTCARENOTE ---
Rec'd pt. at change of shift AAOx3, A-fib on the monitor - rate up to the 140's. BP at 1925 down to 79/61. Pt. completely asymptomatic, sitting in bed talking to visitor at the time. Amado Culver CV-PA, notified, order for LR 500 ml IV bolus over 2
hours obtained and to give extra dose of Midodrine 5 mg (for a total of 10 mg for evening dose). Medications given. Post bolus BP up to 91/59, still fast A-fib up to the 140's. 2200 Digoxin IV given as ordered and HR currently down to
90's-110's, A-fib. Pt. remains asymptomatic. Otherwise pt. feels well, watching television. Amado updated to pt.'s progress, no new orders.
[2024-03-01 00:42] VITALS: BP 93/38
[2024-03-01 01:02] VITALS: BP 91/46
[2024-03-01 03:51] VITALS: BP 97/48
[2024-03-01 04:12] LABS: Hematocrit 28.3 % (37.0-47.0); Hemoglobin 9.7 g/dL (12.0-16.0); Mean Corp Hgb Conc. 34.3 g/dL (33.0-37.0); Mean Corpuscular Hgb 31.5 pg (27.0-31.0); Mean Corpuscular Volume 91.9 fL (81.0-99.0); Mean Platelet Volume 11.3 fL (7.4-10.4); Platelet Count 155 10^3/uL (130-400); Red Blood Cell Count 3.08 10^6/uL (4.20-5.40); Red Cell Dist. Width 16.9 % (11.5-14.5)
[2024-03-01 04:18] VITALS: BMI 24.2
[2024-03-01 04:34] LABS: Blood Urea Nitrogen 41 mg/dl (7-17); Calcium 9.6 mg/dl (8.4-10.2); Carbon Dioxide 16 mmol/L (22-30); Chloride 113 mmol/L (98-107); Estimated Creatinine Clearance 27 ml/min; Glucose 87 mg/dl (70-99); Potassium 4.7 mmol/L (3.5-5.1); Sodium 139 mmol/L (135-145); eGFR 38.75
--- NOTE | 2024-03-01 06:32 | W.PN.CT ---
Addendum entered and electronically signed by Carlos Cordova MD 03/01/24 09:23:
I saw and examined the patient.
The PA's note was reviewed and I agree with the note.
Comment:
Remains in AF w/ variable rate-control. Pt also w/ hypotension overnight requiring IVF. Pt. reports SBP is generally in 90s at home.
- Midodrine increased to 10mg TID
- Continue Eliquis
- Continue Amiodarone 200/100 alternating daily
- Dig loaded yesterday
- OOB/IS/ambulate
- D/C planning for later today versus tomorrow - will d/w cardiology
Original Note:
Today's Communication / Plan
-
Remains in A-fib with variable rate control.
Hypotensive last night requiring LR bolus as well as up titration of midodrine to 10 mg 3 times daily. Blood pressure improved to the 90s this morning systolic. Patient states she lives in the 90s systolic at home. Asymptomatic.
A-fib management per cardiology. On Eliquis. Dig loading.
No acute cardiac surgery issues. Groins soft. May shower.
Home when cleared by cardiology. Consider transfer of service if continued management of A-fib as needed. Will discuss.
Assessment / Plan
-
- Severe symptomatic - s/p Pre-TAVR BAV w/ SWAPNA followed by R TF TAVR w/ placement of 29mm Evolut FX and Post-TAVR BAV x 2 w/ 24 TRUE on 02/27/24, pod #2
- Acute on chronic diastolic CHF, LVEDP 22
- Post-TTE: mean gradient 10mmHg, rjbu-ju-uswstjnl PVL
- Moderate aortic insufficiency
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
- Prolonged QT
- Chronic Anemia- s/p 2 pRBCs on 02/25/24 for Hg 7.5
- Hx multiple blood transfusions
- CKD 3b with recent JAKY (Cr 1.3 in January 2024, 2.3 peak on 02/25/24 and 1.7 pre-TAVR)
- Paroxysmal a-fib, on Amio and Eliquis preop- recent a-fib with RVR 130s
- Hyperthyroid - on Methimazole
- Hx GIB
- s/p 11/28 robotic low anterior resection with takedown of splenic flexure and diverting loop ileostomy
- Hiatal hernia
- Malignant rectal tumor, s/p LEASE EXAMINER
- OA
- Discoid lupus
- Hx measles/chicken pox
- Hx pneumonia
- Former smoker, quit 10 years ago
- Acute on chronic postop hypotension
- Acute postop LBBB
Subjective
Procedure
- s/p Pre-TAVR BAV w/ SWAPNA followed by R TF TAVR w/ placement of 29mm Evolut FX and Post-TAVR BAV x 2 w/ TRUE on 02/27/24
-
Date of Service: March 01, 2024
Feels okay overall. Frustrated with still being here. Hypotensive last night but asymptomatic. Remains in a A-fib with variable rate control.
Objective Data
-
Lab Results
03/01/24 03:59
03/01/24 03:59
PT 14.8 Sec (11.4-14.6) H 02/25/24 06:28
INR 1.18 02/25/24 06:28
APTT 108.6 Sec (23.4-35.0) H 02/27/24 05:21
Vital Signs
Vital Signs
Temp Pulse Resp BP Pulse Ox
98.3 F 99 16 97/48 95
03/01/24 03:49 03/01/24 04:00 03/01/24 03:49 03/01/24 03:51 03/01/24 03:49
CT Intake/Output/Weight
08/24/24 08/24/24 08/25/24
06:59 18:59 06:59
Intake Total 480 / 812.5 250 / 990 740 / 990
Output Total 500 / 500
Balance 480 / 812.5 250 / 490 240 / 490
SaO2: 95
Physical Exam
-
General: Awake and Oriented
Cardiovascular: Irregular rate & rhythm
Respiratory: Clear
Incision: Other (Groin soft)
Data Reviewed
-
Lab Results: Results Reviewed
Medications: Active Meds Reviewed
[2024-03-01 08:00] VITALS: BP 87/49
[2024-03-01] MEDS: ProAmatine 10 MG PO (08:21)
[2024-03-01] MEDS: ELIQUIS 5 MG PO (08:21)
--- NOTE | 2024-03-01 08:29 | W.PN.CD ---
Today's Communication / Plan
-
-Stable for discharge from cardiac standpoint
Impression / Plan
-
Impression/Plan: 78 y/o female with a history of rectal CA complicated by continuous rectal bleeding unresponsive to APC (11/05/2023) and requiring recurrent transfusions, s/p LAR with diverting loop ileostomy on 11/12/2023, paroxysmal atrial
fibrillation and critical, symptomatic aortic valve stenosis admitted from [facility] with AF/RVR, acute on chronic anemia and JAKY for expedited TAVR.
#Critical aortic stenosis
-Chronic.
-Mean gradient 79 by echo, 40's by cath (performed in atrial fibrillation).
-S/P #29 Medtronic CoreValve, post dilated with a #24 True Balloon.
-Bilateral femoral access sites are C/D/I.
-OK for apixaban 5 mg bid
-EKG/Tele shows new LBBB, no significant pauses.
-Routine post procedure TTE 02/28/24 - prior TAVR gradients were 21/11 mmHg, with mild/moderate paravalvular AR.
-RhythmStar at discharge.
#Severe anemia
-Acute on chronic.
-No evidence of acute bleeding.
-Hbg 9.3 - to 9.4 today.
-s/p Transfused 2 units of PRBCs with furosemide in between prior to TAVR.
-OK to resume apixaban.
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
#Paroxysmal atrial fibrillation
-Patient previously known to have A-fib and maintained on amiodarone although the dose was only 100 mg a day due to previous bradycardia.
-Currently in NSR.
-Rate/rhythm control with amiodarone.- with bradycardia, Amiodarone and Toprol was held.
-OK to resume home amiodarone and hold Toprol. Home dose is 200 mg q. other day and 100 mg q. other day
-RhythmStar at discharge.
-CHADS2-Vasc = 4 (CHF, Age x2, Female).
-If recurrent GI bleed noted, can consider Watchman.
-She may be a good LAAO candidate in the future.
#Rectal cancer
-S/P LAR with diverting loop ileostomy, prior FOLFOX.
-Colorectal surgeon Dr. Tenorio
-Oncologist Dr. Henderson
#JAKY
-Creatinine peaked at 2.3, likely related to hemodynamics with A-fib and lower pressures.
-Creatinine slowly improving, now 1.2.
-Limit nephrotoxins.
#Hyperthyroidism
-Chronic, improved based on last set of TFTs.
-Continue methimazole.
-Monitor with amiodarone use.
Critical Care Time = 31 minutes.
Subjective/Interval History:
S/P #29 Medtronic CoreValve TAVR 02/26.
Feeling better now.
DATA:
Cardiac Catheterization, 02/04/2024:
CONCLUSIONS
1:�Severe aortic stenosis with mean gradient 44 mmHg-this is an approximation as the patient is in atrial fibrillation
2:�Single-vessel CAD with 80-90% stenosis in the midportion of a nondominant RCA. This will be treated medically.
3. Continue with TAVR evaluation.
TTE, 01/15/2024:
CONCLUSIONS
Normal left ventricular size with severe concentric hypertrophy and normal
systolic function. No regional wall motion abnormalities are seen. LV ejection
fraction is 65-70% by Goff's method of discs. Stage II diastolic dysfunction
suggestive of abnormal relaxation and increased filling pressures.
Normal right ventricular size and function.
Severe left atrial dilation.
Mild right atrial dilation.
Mitral annular calcification with extension onto the anterior mitral leaflet.
Moderate mitral regurgitation.
Thickened aortic valve with restricted leaflet motion, critical aortic stenosis
and moderate regurgitation.
Color flow pattern suggestive of small PFO.
Mild pulmonary hypertension. PASP estimated 44 mmHg.
Physical Exam
Vital Signs/Labs
Vital Signs
Temp Pulse Resp BP Pulse Ox
97.6 F 99 18 97/48 95
03/01/24 08:03 03/01/24 04:00 03/01/24 08:03 03/01/24 03:51 03/01/24 08:03
02/29/24 03/01/24 03/02/24
06:59 06:59 06:59
Actual Weight 59.9 kg 59.9 kg
03/01/24 03:59
03/01/24 03:59
PT 14.8 Sec (11.4-14.6) H 02/25/24 06:28
INR 1.18 02/25/24 06:28
APTT 108.6 Sec (23.4-35.0) H 02/27/24 05:21
Magnesium 1.9 mg/dl (1.6-2.3) 02/27/24 05:21
02/21/24 02/24/24
12:12 12:37
Iog-T-Jrozyixrjwq Pept Cancelled 8650
Physical Exam
Constitutional: No acute distress and Comfortable
EENT: Anicteric and Moist mucous membranes
Cardiovascular: Rhythm & rate is regular, Pedal edema is absent, Systolic murmur absent and Diastolic murmur absent
Respiratory: Respiratory effort normal, Lungs clear to auscul., Crackles Absent and Rhonchi Absent
GI: Soft, Distention absent, Non tender and Normal bowel sounds
Neuro/Psych: Alert, Oriented, AO x 3 and Motor deficits absent
Other: Skin
Data Reviewed
-
Date of Service: March 01, 2024
Medical Decision Making: Reviewed Test Results, Independent Historian Assessment, Test Interpretation and Review of Case with other Provider
EKG: Tracing Personally Visualized and interpreted
Echo: Report Reviewed by me
Labs: Labs Reviewed by me
Old Records: Reviewed
[2024-03-01 09:04] VITALS: BP 94/58
--- NOTE | 2024-03-01 13:20 | PTCARENOTE ---
Pt received this am with no c/o. OOB ad nathaniel in the room. Gait steady. Bilateral groin site dressings dry and intact. Dressings removed and left KE. Pt showered without difficulty. Remains in afib, rate in the 70's to 100's. Pt discharged to home
with her sister. Discharged to home with her sister. Discharge instructions given and reviewed with good understanding.
== END 2024-03-01 13:31 | disposition home or self-care (01) | DRG 266 ==
LOC: IVU 22:03
PROVIDERS: Clinical Nurse Specialist Acute Care; Internal Medicine; Nurse Practitioner; Nurse Practitioner Gerontology; Physician Assistant Medical; Physician Assistant Surgical; ADMITTING PHYSICIAN Hospitalist; ATTENDING PHYSICIAN Thoracic Surgery (Cardiothoracic Vascular Surgery); CONSULT PHYSICIAN Thoracic Surgery (Cardiothoracic Vascular Surgery); EMERGENCY PHYSICIAN Student in an Organized Health Care Education/Training Program; FAMILY PHYSICIAN Family Medicine; OTHER PHYSICIAN Internal Medicine Cardiovascular Disease
PROC: 30233N1 Transfusion of Nonautologous Red Blood Cells into Peripheral Vein, Percutaneous Approach (ICD-10-PCS; 2024-02-25)
PROC: 02RF38Z Replacement of Aortic Valve with Zooplastic Tissue, Percutaneous Approach (ICD-10-PCS; 2024-02-27)
DX: I08.0 Rheumatic disorders of both mitral and aortic valves (principal); Z00.6 Encounter for examination for normal comparison and control in clinical research program; D61.810 Antineoplastic chemotherapy induced pancytopenia; I50.33 Acute on chronic diastolic (congestive) heart failure; N17.9 Acute kidney failure, unspecified; I48.0 Paroxysmal atrial fibrillation; I25.10 Atherosclerotic heart disease of native coronary artery without angina pectoris; F32.A Depression, unspecified; L93.0 Discoid lupus erythematosus; D63.0 Anemia in neoplastic disease; M19.90 Unspecified osteoarthritis, unspecified site; T45.1X5A Adverse effect of antineoplastic and immunosuppressive drugs, initial encounter; E53.8 Deficiency of other specified B group vitamins; E05.90 Thyrotoxicosis, unspecified without thyrotoxic crisis or storm; H91.93 Unspecified hearing loss, bilateral; N18.31 Chronic kidney disease, stage 3a; I44.7 Left bundle-branch block, unspecified; I95.81 Postprocedural hypotension; Z79.01 Long term (current) use of anticoagulants; Z79.899 Other long term (current) drug therapy; Z85.048 Personal history of other malignant neoplasm of rectum, rectosigmoid junction, and anus; Z87.891 Personal history of nicotine dependence; Z93.2 Ileostomy status
CPT/HCPCS: 93308; 33361; 36415; 71045; 71046; 80048; 80053; 81003; 81015; 82248; 82330; 82607; 82728; 82746; 83036; 83540; 83550; 83735; 83880; 84100; 85014; 85018; 85025; 85027; 85610; 85730; 86850; 86900; 86901; 86920; 87070; 93005; 93306; 93321; 93325; 99284; C1726; C1760; C1769; C1894; J1160; P9016; P9045; Q9967

== ENCOUNTER → 2024-03-02 14:52 | Outpatient (REF) | payer MEDICARE, SELFPAY ==
[2024-03-02 16:08] LABS: Free T3 2.15 pg/ml (2.77-5.27); Free T4 0.67 ng/dl (0.78-2.19)
[2024-03-02 16:13] LABS: % Basophils 1.1 % (0-2); % Eosinophils 0.8 % (0-6); % Immature Granulocytes 1.8 % (0-0.5); % Lymphocytes 6.9 % (20.5-51.1); % Monocytes 7.9 % (1.7-9.3); % Neutrophils 81.5 % (42.2-75.2); Absolute Basophils 0.1 10^3/uL (0-0.2); Absolute Eosinophils 0.1 10^3/uL (0-0.7); Absolute Immature Granulocytes 0.1 10^3/uL (0-0.05); Absolute Lymphocytes 0.5 10^3/uL (1.2-3.4); Absolute Monocytes 0.6 10^3/uL (0.1-0.6); Hematocrit 33.9 % (37.0-47.0); Hemoglobin 11.4 g/dL (12.0-16.0); Mean Corp Hgb Conc. 33.6 g/dL (33.0-37.0); Mean Corpuscular Hgb 32.5 pg (27.0-31.0); Mean Corpuscular Volume 96.6 fL (81.0-99.0); Mean Platelet Volume 11.1 fL (7.4-10.4); Nucleated Red Blood Cells % 0 %; Platelet Count 203 10^3/uL (130-400); Red Blood Cell Count 3.51 10^6/uL (4.20-5.40); Red Cell Dist. Width 16.7 % (11.5-14.5); White Blood Cell Count 7.4 10^3/uL (4.8-10.8)
[2024-03-02 16:21] LABS: TSH 0.26 uIU/ml (0.47-4.68)
[2024-03-02 17:03] LABS: ALT (SGPT) 18 U/L (0-35); AST (SGOT) 34 U/L (14-36); Albumin 4.3 g/dl (3.5-5.0); Alkaline Phosphatase 98 U/L (38-126); Blood Urea Nitrogen 54 mg/dl (7-17); Calcium 11.1 mg/dl (8.4-10.2); Carbon Dioxide 11 mmol/L (22-30); Chloride 112 mmol/L (98-107); Glucose 98 mg/dl (70-99); Potassium 5.7 mmol/L (3.5-5.1); Sodium 140 mmol/L (135-145); Total Bilirubin 0.6 mg/dl (0.2-1.3); Total Protein 7.7 g/dl (6.3-8.2); eGFR 21.36
== END ==
LOC: REG 14:52
PROVIDERS: ATTENDING PHYSICIAN Internal Medicine Endocrinology, Diabetes & Metabolism; FAMILY PHYSICIAN Internal Medicine Cardiovascular Disease; REFERRING PHYSICIAN Surgery
DX: E05.90 Thyrotoxicosis, unspecified without thyrotoxic crisis or storm (principal)
CPT/HCPCS: 36415; 80053; 84439; 84443; 84481; 85025

== ENCOUNTER → 2024-03-23 13:17 | Outpatient (REF) | payer MEDICARE, SELFPAY ==
[2024-03-23 14:56] LABS: Albumin 4.4 g/dl (3.5-5.0); Blood Urea Nitrogen 84 mg/dl (7-17); Calcium 9.8 mg/dl (8.4-10.2); Carbon Dioxide 15 mmol/L (22-30); Chloride 103 mmol/L (98-107); Glucose 83 mg/dl (70-99); Phosphorus 5.2 mg/dl (2.5-4.5); Potassium 4.3 mmol/L (3.5-5.1); Sodium 135 mmol/L (135-145); eGFR 21.36
== END ==
LOC: REG 13:17
PROVIDERS: ATTENDING PHYSICIAN Internal Medicine Cardiovascular Disease; REFERRING PHYSICIAN Surgery
DX: I48.91 Unspecified atrial fibrillation (principal); I48.0 Paroxysmal atrial fibrillation; I35.0 Nonrheumatic aortic (valve) stenosis; D64.9 Anemia, unspecified; R60.0 Localized edema
CPT/HCPCS: 36415; 80069

== ENCOUNTER → 2024-03-30 09:27 | Outpatient (REF) | payer MEDICARE, SELFPAY | LOC: RCS 09:27 | PROVIDERS: ATTENDING PHYSICIAN Internal Medicine Cardiovascular Disease; FAMILY PHYSICIAN Family Medicine; REFERRING PHYSICIAN Surgery | DX: I35.0 Nonrheumatic aortic (valve) stenosis (principal) | CPT/HCPCS: 93306 ==

== ENCOUNTER → 2024-03-30 12:27 | Outpatient (REF) | payer MEDICARE, SELFPAY | LOC: WOUND 12:27 | PROVIDERS: ATTENDING PHYSICIAN Surgery | DX: S51.802A Unspecified open wound of left forearm, initial encounter (principal); I48.91 Unspecified atrial fibrillation; R94.31 Abnormal electrocardiogram [ECG] [EKG]; L93.0 Discoid lupus erythematosus; C20 Malignant neoplasm of rectum; R60.9 Edema, unspecified; I87.2 Venous insufficiency (chronic) (peripheral); Z87.891 Personal history of nicotine dependence; Z79.01 Long term (current) use of anticoagulants; X58.XXXA Exposure to other specified factors, initial encounter | CPT/HCPCS: 17250; 99204 ==

== ENCOUNTER → 2024-04-02 14:01 | Outpatient (REF) | payer MEDICARE, SELFPAY ==
[2024-04-02 16:14] LABS: % Basophils 1.3 % (0-2); % Eosinophils 1.7 % (0-6); % Immature Granulocytes 0.4 % (0-0.5); % Lymphocytes 8.5 % (20.5-51.1); % Monocytes 7.8 % (1.7-9.3); % Neutrophils 80.3 % (42.2-75.2); Absolute Basophils 0.1 10^3/uL (0-0.2); Absolute Eosinophils 0.1 10^3/uL (0-0.7); Absolute Lymphocytes 0.4 10^3/uL (1.2-3.4); Absolute Monocytes 0.4 10^3/uL (0.1-0.6); Absolute Neutrophils 3.8 10^3/uL (1.4-6.5); Hematocrit 30.9 % (37.0-47.0); Hemoglobin 10.2 g/dL (12.0-16.0); Mean Corpuscular Hgb 32.7 pg (27.0-31.0); Mean Platelet Volume 10.7 fL (7.4-10.4); Nucleated Red Blood Cells % 0 %; Platelet Count 152 10^3/uL (130-400); Red Blood Cell Count 3.12 10^6/uL (4.20-5.40); White Blood Cell Count 4.7 10^3/uL (4.8-10.8)
[2024-04-02 16:36] LABS: ALT (SGPT) 24 U/L (0-35); AST (SGOT) 36 U/L (14-36); Albumin 4.6 g/dl (3.5-5.0); Alkaline Phosphatase 82 U/L (38-126); Blood Urea Nitrogen 67 mg/dl (7-17); Calcium 10.1 mg/dl (8.4-10.2); Carbon Dioxide 19 mmol/L (22-30); Chloride 105 mmol/L (98-107); Glucose 77 mg/dl (70-99); Phosphorus 4.5 mg/dl (2.5-4.5); Potassium 4.1 mmol/L (3.5-5.1); Sodium 139 mmol/L (135-145); Total Bilirubin 0.5 mg/dl (0.2-1.3); Total Protein 7.6 g/dl (6.3-8.2); eGFR 22.53
== END ==
LOC: REG 14:01
PROVIDERS: ATTENDING PHYSICIAN Internal Medicine Cardiovascular Disease; FAMILY PHYSICIAN Surgery
DX: I48.0 Paroxysmal atrial fibrillation (principal); I48.91 Unspecified atrial fibrillation; I35.0 Nonrheumatic aortic (valve) stenosis; D64.9 Anemia, unspecified; R60.0 Localized edema; I48.19 Other persistent atrial fibrillation
CPT/HCPCS: 36415; 80053; 84100; 85025

== ENCOUNTER → 2024-04-07 06:29 | Day surgery (SDC) | payer MEDICARE, SELFPAY | LOC: GI 06:29 | PROVIDERS: ATTENDING PHYSICIAN Surgery | DX: Z01.818 Encounter for other preprocedural examination (principal); K63.89 Other specified diseases of intestine; Z85.048 Personal history of other malignant neoplasm of rectum, rectosigmoid junction, and anus; Z92.3 Personal history of irradiation | CPT/HCPCS: 45330 ==

== ENCOUNTER 2024-04-15 09:28 | Inpatient (IN) | payer MEDICARE, SELFPAY ==
[2024-04-14 09:44] VITALS: BMI 24.1
[2024-04-14 11:08] LABS: Hematocrit 30.7 % (37.0-47.0); Mean Corp Hgb Conc. 32.6 g/dL (33.0-37.0); Mean Corpuscular Hgb 33.3 pg (27.0-31.0); Mean Corpuscular Volume 102.3 fL (81.0-99.0); Mean Platelet Volume 11.1 fL (7.4-10.4); Platelet Count 157 10^3/uL (130-400); Red Cell Dist. Width 16.4 % (11.5-14.5); White Blood Cell Count 4.6 10^3/uL (4.8-10.8)
[2024-04-14 11:37] LABS: ALT (SGPT) 25 U/L (0-35); AST (SGOT) 35 U/L (14-36); Albumin 4.4 g/dl (3.5-5.0); Alkaline Phosphatase 78 U/L (38-126); Blood Urea Nitrogen 60 mg/dl (7-17); Calcium 9.6 mg/dl (8.4-10.2); Carbon Dioxide 15 mmol/L (22-30); Chloride 116 mmol/L (98-107); Estimated Creatinine Clearance 18 ml/min; Glucose 91 mg/dl (70-99); Potassium 5.2 mmol/L (3.5-5.1); Sodium 146 mmol/L (135-145); Total Bilirubin 0.2 mg/dl (0.2-1.3); Total Protein 7.3 g/dl (6.3-8.2); eGFR 23.67
[2024-04-14 11:58] LABS: Glycohemoglobin (HgbA1c) 4.8 % (4.0-5.6)
[2024-04-14 12:04] LABS: CEA 13.5 ng/ml
--- NOTE | 2024-04-14 13:05 | PTCARENOTE ---
Marianela at Dr. Tenorio office notified of Abnormal labs.
[2024-04-15] VITALS (12 sets, daily range): BP systolic 99–128; BP diastolic 37–56; BMI 24.1
[2024-04-15] MEDS: TYLENOL 1000 MG PO (10:07)
[2024-04-15] MEDS: ENTEREG 12 MG PO (10:07)
[2024-04-15] MEDS: NSS 1000 IV ×2 (10:18→20:23)
[2024-04-15] MEDS: DILAUDID 0.25 MG IV (15:16)
[2024-04-15] MEDS: TYLENOL 650 MG PO ×3 (16:34→23:05)
--- NOTE | 2024-04-15 17:07 | W.PN.CD ---
Addendum entered and electronically signed by Ramiro Cox MD 04/15/24 21:14:
I saw and examined the patient.
The BINDING NICKER's note was reviewed and I agree with the note.
Comment: As planned: Amio 400 bid while here and at discharge 200 mg daily. Will monitor to make sure that dose is tolerated.
Original Note:
Today's Communication / Plan
-
-amiodarone 400 mg PO BID while here, then 200 mg daily at d/c
-follow telemetry
Impression / Plan
-
79 y/o female who follows with Dr. Torres and has a history of paroxysmal AFIB (with high burden) on amiodarone and Eliquis with plans for ablation, colorectal cancer, severe s/p TAVR 02/2024, hyperthyroidism on methimazole, and LBBB who is now
s/p ostomy reversal.
s/p ostomy reversal:
-post-op management per surgery team
-VSS
-seems to be doing well post-op- pain managed with meds. Denies CP, SOB, or palps.
AFIB, paroxysmal
-currently in SR with LBBB, but known high burden of AFIB- plan is for ablation later this year. Post-op, plan is for amiodarone 400 mg PO BID while inpatient due to high risk for recurrent AFIB with RVR post-op, then 200 mg daily until the
ablation.
-resume OAC when safe post-op
s/p TAVR:
-echo 03/30/24: Normal biventricular size and systolic function without regional wall motion abnormality. Mild concentric left ventricular hypertrophy. Stage II diastolic dysfunction. Very severe left atrial enlargement.
Mitral annular calcification. Moderate mitral regurgitation. S/p Medtronic Evolut 29 TAVR. The peak/mean gradients across the valve are 24/12 mmHg. Moderate to severe paravalvular aortic regurgitation. Mild to moderate tricuspid regurgitation. Per
OP notes, valve team to review.
CKD:
-monitor labs
Physical Exam
Vital Signs/Labs
Vital Signs
Temp Pulse Resp BP Pulse Ox
97.0 F 82 19 121/49 96
04/15/24 13:38 04/15/24 14:15 04/15/24 14:15 04/15/24 14:15 04/15/24 16:53
04/14/24 04/15/24 04/16/24
06:59 06:59 06:59
Actual Weight 61.7 kg
04/14/24 09:10
04/14/24 09:10
Physical Exam
Constitutional: No acute distress
EENT: Anicteric
Cardiovascular: Rhythm & rate is regular and Systolic murmur present
Respiratory: Respiratory effort normal and Lungs clear to auscul.
Neuro/Psych: AO x 3
Data Reviewed
-
Date of Service: April 15, 2024
EKG: Other (SR with LBBB)
[2024-04-15] MEDS: ProAmatine 5 MG PO (18:11)
--- NOTE | 2024-04-15 18:40 | PTCARENOTE ---
Patient arrived to room 431 on stretcher from PACU. Patient transferred into bed by nursing staff and awake overnight monitor applied per order. Patient oriented to room and call desai in reach. Will report to nightshift RN.
[2024-04-15] MEDS: FLAGYL 500 MG 100 IV (20:30)
[2024-04-15] MEDS: PACERONE 400 MG PO (20:31)
[2024-04-16] VITALS (7 sets, daily range): BP systolic 91–121; BP diastolic 42–56; PULSE 66; BMI 24.7
[2024-04-16] MEDS: ROXICODONE 5 MG PO ×2 (00:46→21:55)
[2024-04-16] MEDS: FLAGYL 500 MG 100 IV (04:44)
[2024-04-16] MEDS: TYLENOL PO (04:48)
[2024-04-16 08:03] LABS: % Immature Granulocytes 0.4 % (0-0.5); % Lymphocytes 3.4 % (20.5-51.1); % Monocytes 4.6 % (1.7-9.3); % Neutrophils 91.6 % (42.2-75.2); Absolute Lymphocytes 0.2 10^3/uL (1.2-3.4); Absolute Monocytes 0.3 10^3/uL (0.1-0.6); Absolute Neutrophils 5.1 10^3/uL (1.4-6.5); Hematocrit 24.4 % (37.0-47.0); Hemoglobin 8.1 g/dL (12.0-16.0); Mean Corp Hgb Conc. 33.2 g/dL (33.0-37.0); Mean Corpuscular Hgb 32.1 pg (27.0-31.0); Mean Corpuscular Volume 96.8 fL (81.0-99.0); Mean Platelet Volume 10.9 fL (7.4-10.4); Nucleated Red Blood Cells % 0 %; Platelet Count 131 10^3/uL (130-400); Red Blood Cell Count 2.52 10^6/uL (4.20-5.40); Red Cell Dist. Width 16.1 % (11.5-14.5); White Blood Cell Count 5.6 10^3/uL (4.8-10.8)
[2024-04-16 08:20] LABS: Blood Urea Nitrogen 48 mg/dl (7-17); Calcium 9.2 mg/dl (8.4-10.2); Carbon Dioxide 14 mmol/L (22-30); Chloride 117 mmol/L (98-107); Estimated Creatinine Clearance 24 ml/min; Glucose 104 mg/dl (70-99); Potassium 4.9 mmol/L (3.5-5.1); Sodium 143 mmol/L (135-145); eGFR 32.81
[2024-04-16] MEDS: TYLENOL 650 MG PO ×4 (09:18→19:49)
[2024-04-16] MEDS: ProAmatine 5 MG PO ×3 (09:18→18:39)
[2024-04-16] MEDS: PACERONE 400 MG PO ×2 (09:19→19:49)
[2024-04-16] MEDS: ASPIR LOW (ENTERIC COATED) 81 MG PO (09:19)
[2024-04-16] MEDS: NSS 1000 IV (09:21)
--- NOTE | 2024-04-16 10:19 | W.PN.CRS1 ---
Today's Communication / Plan
-
clears
dc armenta
repeat h/h
Assessment/Plan
-
POD#1 Resection and closure of ileostomy and removal of Amregg-Q-Onqb.
-Repeat H/H at 1pm given hgb 8.1. Likely due to dilutional anemia.
-Creatinine 1.6, baseline 1.9. Watch.
-OOB with PT.
-Start on clears. DC IVFs when tolerating clears.
-Holding home Eliquis
-DC armenta
-TEDS/SCDS in place, holding Lovenox due to anemia. Await repeat labs.
Subjective Data
Procedure
04/15- Resection and closure of ileostomy and removal of Nrusmz-V-Axrp.
Subjective Data
Date of Service: April 16, 2024
Patient states she feels a lot better than she did after her last surgery. She has no nausea or vomiting. She has been drinking sips of water. She has not had flatus or bowel movements yet.
Objective Data
-
Vital Signs
Temp Pulse Resp BP Pulse Ox
97.6 F 59 18 91/47 100
04/16/24 08:33 04/16/24 08:33 04/16/24 08:33 04/16/24 09:19 04/16/24 08:33
Intake & Output
04/15/24 04/16/24 04/17/24
06:59 06:59 06:59
Intake Total 1180 / 1180
Output Total 1325 / 1325
Balance -145 / -145
Intake:
Oral fluids 480 / 480
IV fluids (Total) 500 / 500
IV piggybacks 200 / 200
Output:
Urine, Armenta 1325 / 1325
Lab Results
04/16/24 07:18
04/16/24 07:18
Physical Exam
-
General: No Acute Distress and AOx3
Abdomen: Soft, Non Distended and Tender (mild around incision)
Skin: Warm and Dry
Wound: Dressing in Place
--- NOTE | 2024-04-16 10:55 | W.PN.CD ---
Addendum entered and electronically signed by Joao Torres MD 04/16/24 12:50:
I saw and examined the patient.
The OFFICE BOOKKEEPER's note was reviewed and I agree with the note.
Appears stable postop. Comfortable and sitting in a chair lungs are clear cardiac exam regular rate and rhythm with early systolic murmur and a low pitched diastolic murmur extremities are without edema.
Patient happy that she was able to get her ostomy reversed. Remains in sinus rhythm
-Continue dosing of amiodarone
-Continue to monitor renal function. There was suspicion that her creatinine was higher than baseline due to her ostomy output we will see if it continues to improve now that she has had her surgery.
-Resume Eliquis when safe from a postoperative standpoint
-If creatinine goes below 1.5 then her Eliquis dosing will change to 5 mg twice daily
-Note patient does not have obstructive coronary artery disease and will not require aspirin. Patient will just be on Eliquis without aspirin and subcu heparin will also be discontinued when Eliquis initiated
Original Note:
Today's Communication / Plan
-
Continue amiodarone 400 mg PO BID while inpatient, then amiodarone 200 mg daily at d/c. Remain on telemetry. Resume Eliquis when safe post-op and ensure correct dosing with renal function improving.
Impression / Plan
-
79 y/o female who follows with Dr. Torres and has a history of paroxysmal AFIB (with high burden) on amiodarone and Eliquis with plans for ablation, colorectal cancer, severe s/p TAVR 02/2024, hyperthyroidism on methimazole, and LBBB who is now
s/p ostomy reversal.
s/p resection and closure of ileostomy:
-post-op management per surgery team
-anemic s/p surgery- repeat hgb is ordered
-BP on low end, she is not symptomatic- she is on midodrine as OP and continued here
AFIB, paroxysmal:
-currently in SR with LBBB, but known high burden of AFIB- plan is for ablation later this year. Post-op, plan is for amiodarone 400 mg PO BID while inpatient due to high risk for recurrent AFIB with RVR post-op, then 200 mg daily until the
ablation. She is maintaining SR with no significant bradycardia.
-resume OAC when safe post-op- ensure correct dosing as renal function is improving post-op- patient and I discussed this.
s/p TAVR:
-echo 03/30/24: Normal biventricular size and systolic function without regional wall motion abnormality. Mild concentric left ventricular hypertrophy. Stage II diastolic dysfunction. Very severe left atrial enlargement. Mitral annular
calcification. Moderate mitral regurgitation. S/p Medtronic Evolut 29 TAVR. The peak/mean gradients across the valve are 24/12 mmHg. Moderate to severe paravalvular aortic regurgitation. Mild to moderate tricuspid regurgitation. Per OP notes, valve
team to review.
CKD:
-improving post-op
-monitor labs
Physical Exam
Vital Signs/Labs
Vital Signs
Temp Pulse Resp BP Pulse Ox
97.6 F 59 18 91/47 100
04/16/24 08:33 04/16/24 08:33 04/16/24 08:33 04/16/24 09:19 04/16/24 08:33
04/15/24 04/16/24 04/17/24
06:59 06:59 06:59
Actual Weight 61.7 kg 63.163 kg
04/16/24 07:18
04/16/24 07:18
Physical Exam
Constitutional: No acute distress
EENT: Anicteric
Cardiovascular: Rhythm & rate is regular
Respiratory: Respiratory effort normal and Lungs clear to auscul.
Neuro/Psych: AO x 3
Data Reviewed
-
Date of Service: April 16, 2024
EKG: Other (tele SB/SR with LBBB)
Labs: Labs Reviewed by me
[2024-04-16 12:58] LABS: Hematocrit 26.8 % (37.0-47.0); Hemoglobin 8.8 g/dL (12.0-16.0)
--- NOTE | 2024-04-16 14:33 | CM ---
Patient resides in a 3rd floor apartment with elevator, patient is independent with adl's and ambulation, no dme, patient, patient had [facility] visiting nurses in past but patient does not feel she needs visiting nurses at discharge.
PCP: Dr. Ryan
Pharmacy [facility] in [place].
Plan; Home no needs.
[2024-04-16] MEDS: NSS IV (16:50)
[2024-04-16] MEDS: LOVENOX 30 MG SC (18:45)
[2024-04-17] MEDS: TYLENOL PO ×2 (00:23→05:00)
[2024-04-17 02:34] VITALS: BP 120/52
[2024-04-17] MEDS: TYLENOL 650 MG PO ×5 (05:34→21:58)
[2024-04-17 06:00] VITALS: BMI 24.5
[2024-04-17 07:00] VITALS: BP 101/43
[2024-04-17] MEDS: ProAmatine 5 MG PO ×3 (08:20→18:33)
[2024-04-17] MEDS: ASPIR LOW (ENTERIC COATED) 81 MG PO (08:23)
[2024-04-17] MEDS: PACERONE 400 MG PO (08:23)
[2024-04-17 08:37] LABS: % Basophils 0.3 % (0-2); % Eosinophils 0.9 % (0-6); % Immature Granulocytes 0.5 % (0-0.5); % Lymphocytes 7.4 % (20.5-51.1); % Monocytes 5.5 % (1.7-9.3); % Neutrophils 85.4 % (42.2-75.2); Absolute Eosinophils 0.1 10^3/uL (0-0.7); Absolute Lymphocytes 0.4 10^3/uL (1.2-3.4); Absolute Monocytes 0.3 10^3/uL (0.1-0.6); Hematocrit 26.6 % (37.0-47.0); Hemoglobin 8.6 g/dL (12.0-16.0); Mean Corp Hgb Conc. 32.3 g/dL (33.0-37.0); Mean Corpuscular Hgb 31.7 pg (27.0-31.0); Mean Corpuscular Volume 98.2 fL (81.0-99.0); Mean Platelet Volume 11.1 fL (7.4-10.4); Nucleated Red Blood Cells % 0 %; Platelet Count 141 10^3/uL (130-400); Red Blood Cell Count 2.71 10^6/uL (4.20-5.40); Red Cell Dist. Width 16.6 % (11.5-14.5); White Blood Cell Count 5.9 10^3/uL (4.8-10.8)
[2024-04-17 10:15] LABS: Blood Urea Nitrogen 38 mg/dl (7-17); Calcium 9.2 mg/dl (8.4-10.2); Carbon Dioxide 14 mmol/L (22-30); Chloride 116 mmol/L (98-107); Estimated Creatinine Clearance 24 ml/min; Glucose 78 mg/dl (70-99); Potassium 4.6 mmol/L (3.5-5.1); Sodium 142 mmol/L (135-145); eGFR 32.81
[2024-04-17 11:00] VITALS: BP 116/46
--- NOTE | 2024-04-17 11:29 | W.PN.CD ---
Addendum entered and electronically signed by Joao Torres MD 04/28/24 10:23:
ckd [id number]
Original Note:
Today's Communication / Plan
-
Continue amiodarone
Eliquis initiation when okay with colorectal surgery team
Discontinue aspirin
Continue to monitor renal function. As renal function improves we will adjust her Eliquis dosing. Will also need to monitor her weights. Previously her weights have mostly been between 125-130. Now slightly above her baseline
Impression / Plan
-
79 y/o female who follows with Dr. Torres and has a history of paroxysmal AFIB (with high burden) on amiodarone and Eliquis with plans for ablation, colorectal cancer, severe s/p TAVR 02/2024, hyperthyroidism on methimazole, and LBBB who is now
s/p ostomy reversal.
s/p resection and closure of ileostomy:
-post-op management per surgery team
-anemic s/p surgery- repeat hgb is ordered
-BP on low end, she is not symptomatic- she is on midodrine as OP and continued here
AFIB, paroxysmal:
-currently in SR with LBBB, but known high burden of AFIB- plan is for ablation later this year. Post-op, plan is for amiodarone 400 mg PO BID while inpatient due to high risk for recurrent AFIB with RVR post-op, then 200 mg daily until the
ablation. She is maintaining SR with no significant bradycardia.
-resume OAC when safe post-op- ensure correct dosing as renal function is improving post-op- patient and I discussed this.
s/p TAVR:
-echo 03/30/24: Normal biventricular size and systolic function without regional wall motion abnormality. Mild concentric left ventricular hypertrophy. Stage II diastolic dysfunction. Very severe left atrial enlargement. Mitral annular
calcification. Moderate mitral regurgitation. S/p Medtronic Evolut 29 TAVR. The peak/mean gradients across the valve are 24/12 mmHg. Moderate to severe paravalvular aortic regurgitation. Mild to moderate tricuspid regurgitation. Per OP notes, valve
team to review.
CKD:
-Improved postop but has stayed 1.6 in last 2 days.
Physical Exam
Vital Signs/Labs
Vital Signs
Temp Pulse Resp BP Pulse Ox
98.3 F 61 16 101/43 99
04/17/24 07:00 04/17/24 07:00 04/17/24 07:00 04/17/24 07:00 04/17/24 07:00
04/16/24 04/17/24 04/18/24
06:59 06:59 06:59
Actual Weight 63.163 kg 62.794 kg
04/17/24 07:36
04/17/24 07:36
Physical Exam
Cardiovascular: Rhythm & rate is regular, Systolic murmur present and Diastolic murmur present
Respiratory: Respiratory effort normal
GI: Soft
Neuro/Psych: Alert
Data Reviewed
-
Date of Service: April 17, 2024
Medical Decision Making: Reviewed Test Results
Medical Tests (PFT, Pathology etc): Report Reviewed by me
Labs: Labs Reviewed by me
--- NOTE | 2024-04-17 12:11 | W.PN.CRS1 ---
Today's Communication / Plan
-
Full liquids
Holding Eliquis
Assessment/Plan
-
POD# 2 resection and closure of ileostomy and removal of Xcsptu-A-Cqxt.
-Hemoglobin 8.8 from 8.1. Monitor.
-Creatinine 1.6, baseline 1.9. Trend.
-OOB with PT.
-Started on a full liquid diet.
-Holding home Eliquis
-TEDS/SCDS in place, on Lovenox.
-Has a Giuseppe in place in the old ileostomy site, will need to be removed prior to discharge.
Subjective Data
Procedure
04/15- Resection and closure of ileostomy and removal of Hxjdbv-D-Nfll.
Subjective Data
Date of Service: April 17, 2024
Patient states her pain is controlled if she lays in bed. It is most painful for her to transfer to the chair. She denies nausea or vomiting. She had loose bowel movements for the first time this morning.
Objective Data
-
Vital Signs
Temp Pulse Resp BP Pulse Ox
98.3 F 61 16 101/43 99
04/17/24 07:00 04/17/24 07:00 04/17/24 07:00 04/17/24 07:00 04/17/24 07:00
Intake & Output
04/16/24 04/17/24 04/18/24
06:59 06:59 06:59
Intake Total 1180 / 1180 1200 / 1200
Output Total 1325 / 1325 1000 / 1000
Balance -145 / -145 200 / 200
Intake:
Oral fluids 480 / 480 1200 / 1200
IV fluids (Total) 500 / 500
IV piggybacks 200 / 200
Output:
Urine, Regan 1325 / 1325 1000 / 1000
Other:
Number of approximated MODERATE 1
amounts of urine
Number of approximated LARGE 1
amounts of urine
Number of unmeasured liquid
stools
Rectum 1
Lab Results
04/17/24 07:36
04/17/24 07:36
Physical Exam
-
General: No Acute Distress and AOx3
Abdomen: Soft, Non Distended and Non Tender
Wound: Dressing in Place
[2024-04-17 15:00] VITALS: BP 106/50
[2024-04-17] MEDS: LOVENOX 30 MG SC (18:32)
[2024-04-17 19:29] VITALS: BP 108/35
[2024-04-17] MEDS: ROXICODONE 5 MG PO (22:01)
[2024-04-17 23:40] VITALS: BP 111/47
[2024-04-18] MEDS: TYLENOL PO
[2024-04-18] MEDS: TYLENOL 650 MG PO ×5 (04:34→20:47)
[2024-04-18 06:00] VITALS: BMI 24.5
[2024-04-18 07:00] VITALS: BP 110/44
[2024-04-18 08:33] LABS: % Basophils 0.7 % (0-2); % Immature Granulocytes 0.4 % (0-0.5); % Lymphocytes 9.5 % (20.5-51.1); % Monocytes 8.6 % (1.7-9.3); % Neutrophils 78.8 % (42.2-75.2); Absolute Eosinophils 0.1 10^3/uL (0-0.7); Absolute Lymphocytes 0.4 10^3/uL (1.2-3.4); Absolute Monocytes 0.4 10^3/uL (0.1-0.6); Absolute Neutrophils 3.6 10^3/uL (1.4-6.5); Hematocrit 26.4 % (37.0-47.0); Hemoglobin 8.7 g/dL (12.0-16.0); Mean Corpuscular Hgb 31.5 pg (27.0-31.0); Mean Corpuscular Volume 95.7 fL (81.0-99.0); Mean Platelet Volume 10.5 fL (7.4-10.4); Nucleated Red Blood Cells % 0 %; Platelet Count 149 10^3/uL (130-400); Red Blood Cell Count 2.76 10^6/uL (4.20-5.40); Red Cell Dist. Width 16.6 % (11.5-14.5); White Blood Cell Count 4.5 10^3/uL (4.8-10.8)
[2024-04-18 09:08] LABS: Blood Urea Nitrogen 29 mg/dl (7-17); Calcium 9.2 mg/dl (8.4-10.2); Carbon Dioxide 15 mmol/L (22-30); Chloride 116 mmol/L (98-107); Estimated Creatinine Clearance 27 ml/min; Glucose 81 mg/dl (70-99); Potassium 4.4 mmol/L (3.5-5.1); Sodium 143 mmol/L (135-145); eGFR 38.51
[2024-04-18] MEDS: PACERONE 400 MG PO (09:11)
[2024-04-18] MEDS: ProAmatine 5 MG PO ×3 (09:12→18:15)
[2024-04-18 11:00] VITALS: BP 115/42
--- NOTE | 2024-04-18 11:38 | W.PN.CD ---
Addendum entered and electronically signed by Joao Torres MD 04/18/24 12:33:
I saw and examined the patient.
The PRIVATE EQUITY ASSOCIATE's note was reviewed and I agree with the note.
Patient tolerated full liquids and is hoping for additional diet advancement.
Holding Eliquis. Plan for restart when safe from a postop standpoint.
Patient's had some fluctuations in her weights. Previously 1 25-1 32 little bit heavier postoperatively. Patient is concerned about going to increased dose of Eliquis 5 mg twice daily. Will continue to monitor weights and creatinine as
outpatient. Would plan to restart Eliquis 2.5 mg twice daily. I will then monitor her weights and renal function as an outpatient and reassess dosing.
Original Note:
Today's Communication / Plan
-
resume Eliquis when safe post-op, per surgery
continue Amiodarone 400mg daily
Impression / Plan
-
79 y/o female who follows with Dr. Torres and has a history of paroxysmal AFIB (with high burden) on amiodarone and Eliquis with plans for ablation, colorectal cancer, severe s/p TAVR 02/2024, hyperthyroidism on methimazole, and LBBB who is now
s/p ostomy reversal.
s/p resection and closure of ileostomy:
-post-op management per surgery team
-anemic s/p surgery
AFIB: paroxysmal
-currently in SR with LBBB, but known high burden of AFIB- plan is for ablation later this year.
-continue Amiodarone 400mg daily, consider reduce dose to 200 mg daily until the ablation at discharge.
-resume OAC when safe post-op- ensure correct dosing as creatinine 1.6 today, age 79, weight 138 lbs = Eliquis 5mg BID.
s/p TAVR:
-echo 03/30/24: Normal biventricular size and systolic function without regional wall motion abnormality. Mild concentric left ventricular hypertrophy. Stage II diastolic dysfunction. Very severe left atrial enlargement. Mitral annular
calcification. Moderate mitral regurgitation. S/p Medtronic Evolut 29 TAVR. The peak/mean gradients across the valve are 24/12 mmHg. Moderate to severe paravalvular aortic regurgitation. Mild to moderate tricuspid regurgitation. Per OP notes, valve
team to review.
CKD:
-Improved postop but has stayed 1.6 in last 2 days.
Physical Exam
Vital Signs/Labs
Vital Signs
Temp Pulse Resp BP Pulse Ox
97.7 F 57 16 110/44 100
04/18/24 07:00 04/18/24 07:00 04/18/24 07:00 04/18/24 07:00 04/18/24 07:00
04/17/24 04/18/24 04/19/24
06:59 06:59 06:59
Actual Weight 138 lb 7 oz 138 lb 1 oz
04/18/24 07:24
04/18/24 07:24
Physical Exam
Constitutional: No acute distress
EENT: Anicteric and Moist mucous membranes
Cardiovascular: Rhythm & rate is regular
Respiratory: Respiratory effort normal and Lungs clear to auscul.
GI: Soft, Non tender and Normal bowel sounds
Neuro/Psych: AO x 3
Other: Skin (warm, dry)
Data Reviewed
-
Date of Service: April 18, 2024
Medical Decision Making: Reviewed Test Results
EKG: Tracing Personally Visualized and interpreted
Echo: Report Reviewed by me
Labs: Labs Reviewed by me
Old Records: Reviewed
--- NOTE | 2024-04-18 13:40 | W.PN.GS2 ---
Addendum entered and electronically signed by Kingsley Ochoa MD 04/18/24 13:56:
Patient seen and examined with INFIRMARY ATTENDANT. Agree with documented progress note.
Patient tired of full liquid diet and requesting regular foods.
Not passing flatus but liquid bowel movements when voiding
Postop incisional pain controlled
AFVSS
NAD
ABD: Soft, a bit protuberant but not distended. Some tenderness to palpation at old ostomy site.
Old ostomy site dressings removed and there was a bit of bloody drainage and clot on it that was evacuated.
A/P: POD #3 s/p closure of ileostomy
Hold Eliquis today but if old ostomy site drainage stable and nonbloody would resume tomorrow
Advancing to low residue diet, dietary counseling provided.
Original Note:
Today's Communication / Plan
-
LRD
oob/increase activity
Assessment / Plan
-
79 yo female with h/o chf, afib and rectal ca s/p ileostomy now POD #1 resection and closure of ileostomy with removal of infusaport
AFVSS
Tolerating full liquids with loose stools and no nausea
Bloody drainage around jamilah: dressing changed
Chronic anemia present, stable
--Advance to LRD and follow for tolerance
--Cardiology following, appreciate recs
--Hold Eliquis today, anticipate resuming tomorrow if h/h continues stable and incision stable
--C/W Haigler drain, anticipate removal prior to discharge
--Multimodal analgesics
--Encourage OOB/increase activity
--C/W lovenox/scds for VTE ppx
Subjective Data
-
Date of Service: April 18, 2024
Patient seen and examined at bedside with Dr. Ochoa. Denies n/v. Notes she hasn't passed gas but does have liquid stools every time she sits on the toilet to void. Did not eat full liquid tray this am as she notes that she is tired of this diet.
Objective Data
-
Intake and Output
04/17/24 04/18/24 04/19/24
06:59 06:59 06:59
Intake Total 1200 / 1200 1080 / 1080
Output Total 1000 / 1000
Balance 200 / 200 1080 / 1080
Intake:
Oral fluids 1200 / 1200 1080 / 1080
Output:
Urine, Regan 1000 / 1000
Other:
Number of approximated MODERATE 1 2 3
amounts of urine
Number of approximated LARGE 1
amounts of urine
Number of unmeasured liquid
stools
Rectum 1
Vital Signs
Temp Pulse Resp BP Pulse Ox
98.2 F 52 20 115/42 97
04/18/24 11:00 04/18/24 11:00 04/18/24 11:00 04/18/24 11:00 04/18/24 11:00
Lab Results
04/18/24 07:24
04/18/24 07:24
Calcium 9.2 mg/dl (8.4-10.2) 04/18/24 07:24
Total Bilirubin 0.2 mg/dl (0.2-1.3) 04/14/24 09:10
AST 35 U/L (14-36) 04/14/24 09:10
ALT 25 U/L (0-35) 04/14/24 09:10
Alkaline Phosphatase 78 U/L (38-126) 04/14/24 09:10
Total Protein 7.3 g/dl (6.3-8.2) 04/14/24 09:10
Albumin 4.4 g/dl (3.5-5.0) 04/14/24 09:10
Physical Exam
-
NAD
ABD soft, minimal distention, NT
Right abd incision with intact jamilah/colby, bloody drainage present saturating drainage: dressing changed
[2024-04-18 15:00] VITALS: BP 109/51
[2024-04-18] MEDS: LOVENOX 30 MG SC (18:15)
[2024-04-18 19:36] VITALS: BP 109/50
[2024-04-18 20:00] VITALS: BP 109/51
[2024-04-18] MEDS: ROXICODONE 5 MG PO (20:49)
[2024-04-18 23:46] VITALS: BP 116/67
[2024-04-19] MEDS: TYLENOL PO (00:51)
[2024-04-19 03:25] VITALS: BP 113/63
[2024-04-19] MEDS: TYLENOL 650 MG PO ×3 (04:04→12:34)
[2024-04-19 07:35] VITALS: BP 115/44
[2024-04-19 08:05] LABS: Hematocrit 26.3 % (37.0-47.0); Hemoglobin 8.6 g/dL (12.0-16.0); Mean Corp Hgb Conc. 32.7 g/dL (33.0-37.0); Mean Corpuscular Volume 100.8 fL (81.0-99.0); Mean Platelet Volume 10.3 fL (7.4-10.4); Platelet Count 143 10^3/uL (130-400); Red Blood Cell Count 2.61 10^6/uL (4.20-5.40); Red Cell Dist. Width 16.3 % (11.5-14.5); White Blood Cell Count 3.7 10^3/uL (4.8-10.8)
[2024-04-19 09:06] LABS: Blood Urea Nitrogen 30 mg/dl (7-17); Calcium 9.3 mg/dl (8.4-10.2); Carbon Dioxide 18 mmol/L (22-30); Chloride 115 mmol/L (98-107); Estimated Creatinine Clearance 23 ml/min; Glucose 79 mg/dl (70-99); Potassium 3.9 mmol/L (3.5-5.1); Sodium 143 mmol/L (135-145)
[2024-04-19] MEDS: ProAmatine 5 MG PO ×3 (09:27→18:15)
[2024-04-19] MEDS: PACERONE 400 MG PO (09:28)
[2024-04-19 11:33] VITALS: BP 113/44
--- NOTE | 2024-04-19 12:37 | W.PN.GS2 ---
Today's Communication / Plan
-
`
Assessment / Plan
-
79 yo female with h/o chf, afib and rectal ca s/p ileostomy now POD #4 resection and closure of ileostomy with removal of infusaport
AFVSS
Hemoglobin stable and old blood at ileostomy takedown site resolved
Returning GI function
--Continue low residue diet but cautioned patient about portion sizes and monitoring as still a bit protuberant/distended
--Cardiology following
--Eliquis resumed today -Lovenox stopped
--C/W Giuseppe drain, anticipate removal prior to discharg
--Encourage OOB/increase activity
Subjective Data
-
Date of Service: April 19, 2024
Patient seen and examined. Postoperative incisional pain minimal/mild.
Feels a bit gassy and slightly distended but not uncomfortable.
Denies nausea, denies heartburn or indigestion.
Belching at times
Continues to pass loose bowel movements when on commode to void. Not much passage of flatus between these episodes.
Objective Data
-
Intake and Output
04/18/24 04/19/24 04/20/24
06:59 06:59 06:59
Intake Total 1080 / 1080 960 / 960
Balance 1080 / 1080 960 / 960
Intake:
Oral fluids 1080 / 1080 960 / 960
Other:
Number of approximated MODERATE 2 3
amounts of urine
Vital Signs
Temp Pulse Resp BP Pulse Ox
98.1 F 60 17 113/44 98
04/19/24 11:33 04/19/24 11:33 04/19/24 11:33 04/19/24 11:33 04/19/24 11:33
Lab Results
04/19/24 06:58
04/19/24 06:58
Calcium 9.3 mg/dl (8.4-10.2) 04/19/24 06:58
Total Bilirubin 0.2 mg/dl (0.2-1.3) 04/14/24 09:10
AST 35 U/L (14-36) 04/14/24 09:10
ALT 25 U/L (0-35) 04/14/24 09:10
Alkaline Phosphatase 78 U/L (38-126) 04/14/24 09:10
Total Protein 7.3 g/dl (6.3-8.2) 04/14/24 09:10
Albumin 4.4 g/dl (3.5-5.0) 04/14/24 09:10
Physical Exam
-
NAD AAOx3
ABD: Softly protuberant but not tensely distended. Some tympany on percussion
Nontender
Right sided old ileostomy site dry today. No further old blood/clot. [place] drain remains in place
[2024-04-19 15:45] VITALS: BP 125/53
--- NOTE | 2024-04-19 16:13 | W.PN.CD ---
Today's Communication / Plan
-
Overall doing well.
Resumed her previous dosing of amiodarone at discharge which was 200 mg a day alternating with 100 mg a day
Eliquis 2.5 mg twice daily. As noted the dosing of Eliquis will be reassessed as an outpatient
Impression / Plan
-
79 y/o female who follows with Dr. Torres and has a history of paroxysmal AFIB (with high burden) on amiodarone and Eliquis with plans for ablation, colorectal cancer, severe s/p TAVR 02/2024, hyperthyroidism on methimazole, and LBBB who is now
s/p ostomy reversal.
s/p resection and closure of ileostomy:
-post-op management per surgery team
-anemic s/p surgery
AFIB: paroxysmal
-currently in SR with LBBB, but known high burden of AFIB- plan is for ablation later this year.
-continue Amiodarone 400mg daily, consider reduce dose to 200 mg daily until the ablation at discharge.
-Eliquis resumed by general surgery today. She had been on 5 mg twice daily and then she had issues with blisters on her arms that were bleeding at that time her creatinine was up to 2.3 and her weights at baseline had been 1 25-1 30 so we dropped
her Eliquis to 2.5 twice daily which she remained on prior to admission. Patient has concerns about going back on 5 mg twice daily if her renal function gets better or her weights remain above 132. Will reinitiate Eliquis to 2.5 mg twice daily for
now and continue to monitor her weights if her creatinine remains 1.6 and her weight continues to trend down to her baseline which is below 132 then Eliquis will be the long-term option for her if her renal function improves and creatinine is
consistently below 1.5 then would reconsider use of Eliquis 5 mg twice daily this will be reassessed by me as an outpatient
s/p TAVR:
-echo 03/30/24: Normal biventricular size and systolic function without regional wall motion abnormality. Mild concentric left ventricular hypertrophy. Stage II diastolic dysfunction. Very severe left atrial enlargement. Mitral annular
calcification. Moderate mitral regurgitation. S/p Medtronic Evolut 29 TAVR. The peak/mean gradients across the valve are 24/12 mmHg. Moderate to severe paravalvular aortic regurgitation. Mild to moderate tricuspid regurgitation. Per OP notes, valve
team to review.
CKD:
-Improved postop but has been around 1.6. It was as low as 1.4 but currently 1.7.
Physical Exam
Vital Signs/Labs
Vital Signs
Temp Pulse Resp BP Pulse Ox
98.1 F 60 17 113/44 98
04/19/24 11:33 04/19/24 11:33 04/19/24 11:33 04/19/24 11:33 04/19/24 11:33
04/18/24 04/19/24 04/20/24
06:59 06:59 06:59
Actual Weight 62.624 kg
04/19/24 06:58
04/19/24 06:58
Physical Exam
Cardiovascular: Rhythm & rate is regular
Respiratory: Respiratory effort normal
GI: Soft
Neuro/Psych: Alert
Data Reviewed
-
Date of Service: April 19, 2024
Medical Decision Making: Reviewed Test Results
Medical Tests (PFT, Pathology etc): Report Reviewed by me
Labs: Labs Reviewed by me
[2024-04-19] MEDS: ELIQUIS 2.5 MG PO (19:48)
[2024-04-19 19:50] VITALS: BP 120/69
[2024-04-19] MEDS: ROXICODONE 5 MG PO (19:51)
[2024-04-19 23:38] VITALS: BP 122/59
[2024-04-20 03:07] VITALS: BP 114/68
[2024-04-20 06:00] VITALS: BMI 24.7
[2024-04-20] MEDS: ProAmatine 5 MG PO ×3 (07:49→17:13)
[2024-04-20] MEDS: ELIQUIS 2.5 MG PO ×2 (07:49→19:36)
[2024-04-20] MEDS: PACERONE 400 MG PO (07:49)
[2024-04-20 07:57] VITALS: BP 113/57
--- NOTE | 2024-04-20 09:56 | W.PN.CD ---
Today's Communication / Plan
-
Continue pos top tx per colorectal surgery
patients rhythms are stable
continue Eliquis 2.5mg BID
currently on amiodaone 200mg a day
change to amiodarone 200mg daily at discharge
Impression / Plan
-
79 y/o female who follows with Dr. Torres and has a history of paroxysmal AFIB (with high burden) on amiodarone and Eliquis with plans for ablation, colorectal cancer, severe s/p TAVR 02/2024, hyperthyroidism on methimazole, and LBBB who is now
s/p ostomy reversal.
s/p resection and closure of ileostomy:
-post-op management per surgery team
-anemic s/p surgery
AFIB: paroxysmal
-currently in SR with LBBB, but known high burden of AFIB- plan is for ablation later this year.
-continue Amiodarone 400mg daily, consider reduce dose to 200 mg daily until the ablation at discharge.
-Eliquis resumed by general surgery today. She had been on 5 mg twice daily and then she had issues with blisters on her arms that were bleeding at that time her creatinine was up to 2.3 and her weights at baseline had been 1 25-1 30 so we dropped
her Eliquis to 2.5 twice daily which she remained on prior to admission. Patient has concerns about going back on 5 mg twice daily if her renal function gets better or her weights remain above 132. Will reinitiate Eliquis to 2.5 mg twice daily for
now and continue to monitor her weights if her creatinine remains 1.6 and her weight continues to trend down to her baseline which is below 132 then Eliquis will be the long-term option for her if her renal function improves and creatinine is
consistently below 1.5 then would reconsider use of Eliquis 5 mg twice daily this will be reassessed by me as an outpatient
s/p TAVR:
-echo 03/30/24: Normal biventricular size and systolic function without regional wall motion abnormality. Mild concentric left ventricular hypertrophy. Stage II diastolic dysfunction. Very severe left atrial enlargement. Mitral annular
calcification. Moderate mitral regurgitation. S/p Medtronic Evolut 29 TAVR. The peak/mean gradients across the valve are 24/12 mmHg. Moderate to severe paravalvular aortic regurgitation. Mild to moderate tricuspid regurgitation. Per OP notes, valve
team to review.
CKD:
-Improved postop but has been around 1.6. It was as low as 1.4 but currently 1.7.
Physical Exam
Vital Signs/Labs
Vital Signs
Temp Pulse Resp BP Pulse Ox
98.4 F 73 17 113/57 97
04/20/24 07:57 04/20/24 07:57 04/20/24 07:57 04/20/24 07:57 04/20/24 07:57
04/19/24 04/20/24 04/21/24
06:59 06:59 06:59
Actual Weight 63.248 kg
04/19/24 06:58
04/19/24 06:58
Physical Exam
Constitutional: No acute distress
Cardiovascular: Rhythm & rate is regular
GI: Other (distded and nontender)
Neuro/Psych: Alert
Data Reviewed
-
Date of Service: April 20, 2024
Medical Decision Making: Reviewed Test Results
--- NOTE | 2024-04-20 10:39 | W.PN.CRS1 ---
Today's Communication / Plan
-
as below
Assessment/Plan
-
POD 5 ileostomy reversal, removal of infusaport
AFVSS
No labs today
� Continue low residue diet; instructed patient to go slow and to stop any p.o. intake if N/V
� Will obtain x-ray to rule out ileus
� Continue pain control with Tylenol, oxycodone and Dilaudid as needed
� Appreciate cardiology, continue midodrine and amiodarone p.o.
� Continue Eliquis p.o.; if develops true ileus, will need alternate delivery method (i.e. therapeutic Lovenox versus hep drip)
� Encourage IS/OOB
Subjective Data
Procedure
04/15- Resection and closure of ileostomy and removal of [id number]-B-Uthb.
Subjective Data
Date of Service: April 20, 2024
Having more burping and feeling mildly bloated. Had an episode of liquid stool associated with incontinence overnight.
Pain controlled.
Denies nausea/vomiting. Tolerating diet.
+flatus (only with BMs) +BMs (1 small liquid episode overnight associated with incontinence) +voiding
Objective Data
-
Vital Signs
Temp Pulse Resp BP Pulse Ox
98.4 F 73 17 113/57 97
04/20/24 07:57 04/20/24 07:57 04/20/24 07:57 04/20/24 07:57 04/20/24 07:57
Intake & Output
04/19/24 04/20/24 04/21/24
06:59 06:59 06:59
Intake Total 960 / 960 2099
Balance 960 / 960 2099
Intake:
Oral fluids 960 / 960 2099
Other:
Number of approximated MODERATE 3 3
amounts of urine
How many times incontinent 5
MODERATE amount urine
Lab Results
04/19/24 06:58
04/19/24 06:58
Physical Exam
-
General: No Acute Distress and AOx3
Abdomen: Soft, Distended (Mildly distended with tympany) and Tender (Appropriately tender, no rebound or guarding)
Skin: Warm and Dry
Wound: No Signs of Infection, Dressing in Place (Giuseppe in place at ostomy site) and No Skin Erythema
--- NOTE | 2024-04-20 11:30 | CM ---
Chart reviewed and plan is to home when stable. No needs.
Plan; Home no needs when stable.
[2024-04-20 12:14] VITALS: BP 139/51
--- NOTE | 2024-04-20 13:35 | PTCARENOTE ---
pt hr alarmed into 160s at approximately 1300. Pt was ambulating to br when this occurred, pt asymptomatic. Pt continues to remain sinus tachy in 120s with a bundle branch at 1335. Dr Tenorio and Brian made aware, will continue to monitor.
[2024-04-20 15:17] VITALS: BP 103/64
--- NOTE | 2024-04-20 15:33 | PN.CDI ---
CDI
- -
CDI:
Physician Documentation Request
Admit Date: 04/15/24 09:28
Dear Doctor Brian,
Please review the following and provide your response in the progress notes.
Clinical Indicators:
Pt admitted for ileostomy reversal.
04/20 Cardiology Note: 'CKD:-Improved postop but has been around 1.6. It was as low as 1.4 but currently 1.7.'
Laboratory Tests
04/14/24 04/18/24 04/19/24
09:10 07:24 06:58
Creatinine 2.1 H 1.4 H 1.7 H
eGFR 23.67 38.51 30.50
Clarify which of the following accurately represents the patient's renal status:
Acute kidney injury (non-traumatic) - see criteria
Acute kidney injury on CKD, please provide stage
CKD, please provide stage - see criteria
Other
Unable to determine
Criteria for JAKY*
1 Increase in serum creatinine by > or = to 0.3 mg/dL (> or = to 26.5 micromol/L) within 48 hours, OR
2 Increase in serum creatinine to > or = to 1.5 times baseline, which is known or presumed to have occurred within 7 days, OR
3 Urine volume < 0.5 nL/kg/hour for six hours
Stages of Chronic Kidney Disease*
Level Description GFR
G1 Normal or High >90
G2 Mildly decreased 60-89
G3a Mildly to moderately decreased 45-59
G3b Moderately to severely decreased 30-44
G4 Severely decreased 15-29
G5 Kidney failure <15
Use of terms such as suspected, likely, concern for, or probable (associated with a specific diagnosis that is being evaluated, monitored, or treated as if it exists) are acceptable and can be coded in the inpatient setting, when documented at the
time of discharge.
Thank you,
Nisha Hartmann RN, BSN
CDI Specialist
Available via [place] [employer]
Please use your independent medical judgment in providing your response.
*Source: Kidney Disease: Improving Global Outcomes (KDIGO) 2012
[2024-04-20 19:38] VITALS: BP 115/74
[2024-04-20] MEDS: ROXICODONE 5 MG PO (19:45)
[2024-04-20 23:55] VITALS: BP 112/60
[2024-04-21] VITALS (7 sets, daily range): BP systolic 115–133; BP diastolic 56–69; PULSE 90; O2SAT 99; BMI 24.7
[2024-04-21 06:38] LABS: % Basophils 0.4 % (0-2); % Eosinophils 0.8 % (0-6); % Immature Granulocytes 0.4 % (0-0.5); % Monocytes 10.1 % (1.7-9.3); % Neutrophils 79.3 % (42.2-75.2); Absolute Lymphocytes 0.5 10^3/uL (1.2-3.4); Absolute Monocytes 0.5 10^3/uL (0.1-0.6); Absolute Neutrophils 4.2 10^3/uL (1.4-6.5); Hematocrit 26.3 % (37.0-47.0); Hemoglobin 8.9 g/dL (12.0-16.0); Mean Corp Hgb Conc. 33.8 g/dL (33.0-37.0); Mean Corpuscular Volume 94.6 fL (81.0-99.0); Mean Platelet Volume 10.7 fL (7.4-10.4); Nucleated Red Blood Cells % 0 %; Platelet Count 160 10^3/uL (130-400); Red Blood Cell Count 2.78 10^6/uL (4.20-5.40); Red Cell Dist. Width 16.1 % (11.5-14.5); White Blood Cell Count 5.2 10^3/uL (4.8-10.8)
[2024-04-21 07:09] LABS: Blood Urea Nitrogen 23 mg/dl (7-17); Calcium 8.8 mg/dl (8.4-10.2); Carbon Dioxide 19 mmol/L (22-30); Chloride 114 mmol/L (98-107); Estimated Creatinine Clearance 30 ml/min; Glucose 85 mg/dl (70-99); Potassium 3.2 mmol/L (3.5-5.1); Sodium 144 mmol/L (135-145); eGFR 42.09
[2024-04-21] MEDS: PACERONE 200 MG PO (08:33)
[2024-04-21] MEDS: ProAmatine 5 MG PO ×3 (08:33→17:08)
[2024-04-21] MEDS: ELIQUIS 2.5 MG PO ×2 (08:33→20:37)
[2024-04-21] MEDS: KCL 20 MEQ PO (08:33)
--- NOTE | 2024-04-21 09:19 | W.PN.CD ---
Today's Communication / Plan
-
continue amio 200 daily
Impression / Plan
-
79 y/o female who follows with Dr. Torres and has a history of paroxysmal AFIB (with high burden) on amiodarone and Eliquis with plans for ablation, colorectal cancer, severe s/p TAVR 02/2024, hyperthyroidism on methimazole, and LBBB who is now
s/p ostomy reversal.
s/p resection and closure of ileostomy:
-post-op management per surgery team
-anemic s/p surgery
AFIB: paroxysmal
-she is back in AF, but known high burden of AFIB - > plan is for ablation later this year.
-now amio 200 mg daily
-Eliquis resumed by general surgery today. She had been on 5 mg twice daily and then she had issues with blisters on her arms that were bleeding at that time her creatinine was up to 2.3 and her weights at baseline had been 1 25-1 30 so we dropped
her Eliquis to 2.5 twice daily which she remained on prior to admission. Patient has concerns about going back on 5 mg twice daily if her renal function gets better or her weights remain above 132. Will reinitiate Eliquis to 2.5 mg twice daily for
now and continue to monitor her weights if her creatinine remains 1.6 and her weight continues to trend down to her baseline which is below 132 then Eliquis will be the long-term option for her if her renal function improves and creatinine is
consistently below 1.5 then would reconsider use of Eliquis 5 mg twice daily this will be reassessed by me as an outpatient
s/p TAVR:
-echo 03/30/24: Normal biventricular size and systolic function without regional wall motion abnormality. Mild concentric left ventricular hypertrophy. Stage II diastolic dysfunction. Very severe left atrial enlargement. Mitral annular
calcification. Moderate mitral regurgitation. S/p Medtronic Evolut 29 TAVR. The peak/mean gradients across the valve are 24/12 mmHg. Moderate to severe paravalvular aortic regurgitation. Mild to moderate tricuspid regurgitation. Per OP notes, valve
team to review.
CKD:
-Improved postop but has been around 1.6. It was as low as 1.4 but currently 1.7.
Physical Exam
Vital Signs/Labs
Vital Signs
Temp Pulse Resp BP Pulse Ox
97.6 F 98 19 117/69 99
04/21/24 07:50 04/21/24 07:50 04/21/24 07:50 04/21/24 07:50 04/21/24 07:50
04/20/24 04/21/24 04/22/24
06:59 06:59 06:59
Actual Weight 139 lb 7 oz 139 lb 6 oz
04/21/24 05:53
04/21/24 05:53
Physical Exam
Constitutional: No acute distress
EENT: Anicteric
Cardiovascular: Rhythm/rate is irregular
Respiratory: Respiratory effort normal and Lungs clear to auscul.
GI: Distention present
Neuro/Psych: AO x 3
Data Reviewed
-
Date of Service: April 21, 2024
EKG: Tracing Personally Visualized and interpreted (af)
Echo: Report Reviewed by me
Labs: Labs Reviewed by me
[2024-04-21] MEDS: TYLENOL 650 MG PO ×3 (11:07→23:16)
--- NOTE | 2024-04-21 11:47 | W.PN.CRS1 ---
Today's Communication / Plan
-
continue low residue diet
potassium 20meq
Assessment/Plan
-
POD#6 ileostomy reversal, removal of infusaport
Tachycardic yesterday upon movement
Hgb 8.9 (8.6)
04/20: Moderate gaseous distention of the entire colon. Mild dilation of a loop of small bowel in the right lower abdomen. Air-fluid levels on the erect view. Findings most likely representing adynamic ileus.
� Continue low residue diet; instructed patient to go slow and to stop any p.o. intake if N/V
- Hypokalemia with a potassium of 3.2. Potassium 20meq given.
� Continue pain control with Tylenol, oxycodone and Dilaudid as needed
� Appreciate cardiology, continue midodrine and amiodarone p.o.
� Continue Eliquis p.o.; if develops true ileus, will need alternate delivery method (i.e. therapeutic Lovenox versus hep drip)
� Encourage IS/OOB
- Giuseppe to be removed prior to discharge
- Okay to shower
Subjective Data
Procedure
04/15- Resection and closure of ileostomy and removal of [id number].
Subjective Data
Date of Service: April 21, 2024
Patient states she is mildly tender in her abdomen. She is feeling a little distended. She has flatus and clear liquid bowel movements. She has been burping. She feels full and not that hungry.
Objective Data
-
Vital Signs
Temp Pulse Resp BP Pulse Ox
97.5 F 89 18 124/59 99
04/21/24 11:08 04/21/24 11:08 04/21/24 11:08 04/21/24 11:08 04/21/24 11:08
Intake & Output
04/20/24 04/21/24 04/22/24
06:59 06:59 06:59
Intake Total 2099 1440 / 1440
Balance 2099 1440 / 1440
Intake:
Oral fluids 2099 144
Other:
Number of approximated MODERATE 3 3
amounts of urine
How many times incontinent 5
MODERATE amount urine
Lab Results
04/21/24 05:53
04/21/24 05:53
Physical Exam
-
General: No Acute Distress and AOx3
Abdomen: Soft, Distended (mild) and Tender (mild, throughout)
Skin: Warm and Dry
[2024-04-21] MEDS: NSS 1000 IV (15:05)
[2024-04-21] MEDS: ROXICODONE 5 MG PO (23:20)
[2024-04-22 03:09] VITALS: BP 107/73
[2024-04-22] MEDS: NSS 1000 IV ×3 (03:25→21:16)
[2024-04-22 04:11] VITALS: BMI 25.2
--- NOTE | 2024-04-22 04:42 | DOWNTIME ---
There was a [employer] Downtime on 04/22/2024 from 0100 to 04/22/2024 at 0355. Downtime documentation of patient's care, including medication administrations, has been reconciled in the electronic record per guidelines. Refer to the
patient's paper chart under the miscellaneous tab to see printed paper medication records and downtime forms.
[2024-04-22 07:41] VITALS: BP 109/57
[2024-04-22] MEDS: ELIQUIS 2.5 MG PO ×2 (08:02→21:13)
[2024-04-22] MEDS: ProAmatine 5 MG PO ×2 (08:02→14:51)
[2024-04-22] MEDS: PACERONE 200 MG PO (08:03)
[2024-04-22] MEDS: TYLENOL 650 MG PO (08:55)
[2024-04-22 09:23] LABS: % Basophils 0.4 % (0-2); % Eosinophils 1.8 % (0-6); % Immature Granulocytes 0.7 % (0-0.5); % Lymphocytes 10.3 % (20.5-51.1); % Monocytes 10.1 % (1.7-9.3); % Neutrophils 76.7 % (42.2-75.2); Absolute Eosinophils 0.1 10^3/uL (0-0.7); Absolute Lymphocytes 0.5 10^3/uL (1.2-3.4); Absolute Monocytes 0.5 10^3/uL (0.1-0.6); Absolute Neutrophils 3.4 10^3/uL (1.4-6.5); Hematocrit 28.3 % (37.0-47.0); Hemoglobin 9.6 g/dL (12.0-16.0); Mean Corp Hgb Conc. 33.9 g/dL (33.0-37.0); Mean Corpuscular Volume 94.3 fL (81.0-99.0); Mean Platelet Volume 10.8 fL (7.4-10.4); Nucleated Red Blood Cells % 0 %; Platelet Count 188 10^3/uL (130-400); Red Cell Dist. Width 16.3 % (11.5-14.5); White Blood Cell Count 4.5 10^3/uL (4.8-10.8)
[2024-04-22 10:19] LABS: Blood Urea Nitrogen 19 mg/dl (7-17); Carbon Dioxide 18 mmol/L (22-30); Chloride 114 mmol/L (98-107); Estimated Creatinine Clearance 32 ml/min; Glucose 82 mg/dl (70-99); Potassium 3.4 mmol/L (3.5-5.1); Sodium 144 mmol/L (135-145); eGFR 46.33
--- NOTE | 2024-04-22 10:56 | W.PN.CRS1 ---
Today's Communication / Plan
-
ngt
Assessment/Plan
-
POD#6 ileostomy reversal, removal of infusaport
Tachycardic yesterday upon movement
Hgb 9.6
04/20: Moderate gaseous distention of the entire colon. Mild dilation of a loop of small bowel in the right lower abdomen. Air-fluid levels on the erect view. Findings most likely representing adynamic ileus.
� Given continued distention, will place NGT. Discussed with patient who is in agreement.
-
- Hypokalemia with a potassium of 3.2. Potassium 20meq given.
� Continue pain control with Tylenol, oxycodone and Dilaudid as needed
� Appreciate cardiology, continue midodrine and amiodarone p.o.
� Continue Eliquis p.o. through NGT, but okay to change to heparin gtt if needed.
� Encourage IS/OOB
- [place] to be removed prior to discharge
- Okay to shower
Subjective Data
Procedure
04/15- Resection and closure of ileostomy and removal of Owruud-R-Rwpu.
Subjective Data
Date of Service: April 22, 2024
Patient states she has flatus. She still feels distended. She has less pain. She has no hunger. She is burping a lot.
Objective Data
-
Vital Signs
Temp Pulse Resp BP Pulse Ox
98.4 F 81 18 109/57 100
04/22/24 07:41 04/22/24 07:41 04/22/24 07:41 04/22/24 07:41 04/22/24 07:41
Intake & Output
04/21/24 04/22/24 04/23/24
06:59 06:59 06:59
Intake Total 1440 / 1440 180 / 180
Balance 1440 / 1440 180 / 180
Intake:
Oral fluids 1440 / 1440 180 / 180
Other:
Number of approximated MODERATE 3 2
amounts of urine
Lab Results
04/22/24 08:55
04/22/24 08:55
Physical Exam
-
General: No Acute Distress and AOx3
Abdomen: Distended (moderate) and Tender (mild, improving)
Skin: Warm and Dry
[2024-04-22 11:07] VITALS: BP 110/60
--- NOTE | 2024-04-22 11:58 | W.PN.CD ---
Today's Communication / Plan
-
Continue Amio
Will need larger dose of Eliquis soon
Impression / Plan
-
79 y/o female who follows with Dr. Torres and has a history of paroxysmal AFIB (with high burden) on amiodarone and Eliquis with plans for ablation, colorectal cancer, severe s/p TAVR 02/2024, hyperthyroidism on methimazole, and LBBB who is now
s/p ostomy reversal.
Paroxysmal AFib: paroxysmal
- Still in AFib, rates OK
- Amio 200 mg daily
- Eliquis is 2.5 bid. Now that Cr is less than 1.5 need to move to 5 BID but that will await a few more days
- Ablation is planned
- Severe LAE noted
Colorectal cancer
- S/p resection and closure of ileostomy on 04/15/2024
Valvular heart disease:
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
- Mod MR
- Mild-mod TR
Acute on chronic CKD, improved, Cr on 04/22/2024 is 1.3. Peak Cr 2.3 on 02/25/2024
LBBB
CAD, cath 01/2024: 80-90% non-dominant RCA, luminals elsewhere
Subjective:
No CP, palps, or dyspnea
Echo 03/30/24: Normal biventricular size and systolic function without regional wall motion abnormality. Mild concentric left ventricular hypertrophy. Stage II diastolic dysfunction. Very severe left atrial enlargement. Mitral annular calcification.
Moderate mitral regurgitation. S/p Medtronic Evolut 29 TAVR. The peak/mean gradients across the valve are 24/12 mmHg. Moderate to severe paravalvular aortic regurgitation. Mild to moderate tricuspid regurgitation.
Physical Exam
Vital Signs/Labs
Vital Signs
Temp Pulse Resp BP Pulse Ox
98.1 F 86 18 110/60 92
04/22/24 11:07 04/22/24 11:07 04/22/24 11:07 04/22/24 11:07 04/22/24 11:07
04/21/24 04/22/24 04/23/24
06:59 06:59 06:59
Actual Weight 63.219 kg 64.637 kg
04/22/24 08:55
04/22/24 08:55
Physical Exam
Constitutional: No acute distress
Cardiovascular: Rhythm/rate is irregular and S1S2 is normal
Respiratory: Respiratory effort normal and Lungs clear to auscul.
GI: Soft and Distention absent
Neuro/Psych: AO x 3 and Motor deficits absent
Data Reviewed
-
Date of Service: April 22, 2024
--- NOTE | 2024-04-22 14:58 | CM ---
Home no needs when stable.
Plan; Home no needs.
[2024-04-22 15:00] VITALS: BP 130/75
[2024-04-22] MEDS: ProAmatine PO (17:31)
[2024-04-22 20:13] VITALS: BP 144/63
[2024-04-22] MEDS: ROXICODONE 5 MG PO (21:12)
[2024-04-22] MEDS: CHLORASEPTIC/SORE THROAT SPRAY 1 SPRAY PO (21:13)
[2024-04-22 23:30] VITALS: BP 127/60
[2024-04-23] VITALS (7 sets, daily range): BP systolic 114–177; BP diastolic 48–91; PULSE 102; BMI 25.7
[2024-04-23 07:20] LABS: Blood Urea Nitrogen 15 mg/dl (7-17); Calcium 8.5 mg/dl (8.4-10.2); Carbon Dioxide 17 mmol/L (22-30); Chloride 116 mmol/L (98-107); Estimated Creatinine Clearance 32 ml/min; Glucose 70 mg/dl (70-99); Potassium 2.7 mmol/L (3.5-5.1); Sodium 144 mmol/L (135-145); eGFR 46.33
[2024-04-23 07:27] LABS: % Basophils 0.4 % (0-2); % Eosinophils 1.3 % (0-6); % Immature Granulocytes 0.6 % (0-0.5); % Lymphocytes 7.7 % (20.5-51.1); % Monocytes 8.6 % (1.7-9.3); % Neutrophils 81.4 % (42.2-75.2); Absolute Eosinophils 0.1 10^3/uL (0-0.7); Absolute Lymphocytes 0.4 10^3/uL (1.2-3.4); Absolute Monocytes 0.4 10^3/uL (0.1-0.6); Absolute Neutrophils 3.8 10^3/uL (1.4-6.5); Hematocrit 24.1 % (37.0-47.0); Hemoglobin 8.2 g/dL (12.0-16.0); Mean Corpuscular Hgb 33.3 pg (27.0-31.0); Mean Platelet Volume 9.6 fL (7.4-10.4); Nucleated Red Blood Cells % 0 %; Platelet Count 140 10^3/uL (130-400); Red Blood Cell Count 2.46 10^6/uL (4.20-5.40); Red Cell Dist. Width 16.2 % (11.5-14.5); White Blood Cell Count 4.7 10^3/uL (4.8-10.8)
--- NOTE | 2024-04-23 08:09 | W.PN.CD ---
Today's Communication / Plan
-
replace potassium
Check magnesium
continue amiodarone
monitor post op anemia. If addtional drop then may need to hold Eliquis
Note Eliquis currently 2.5mg but now that creatinine 1.2 dosing will kelly up being 5mg. Will wait a couple days as she recovers and we monitor Hb
Impression / Plan
-
79 y/o female who follows with Dr. Torres and has a history of paroxysmal AFIB (with high burden) on amiodarone and Eliquis with plans for ablation, colorectal cancer, severe s/p TAVR 02/2024, hyperthyroidism on methimazole, and LBBB who is now
s/p ostomy reversal.
Paroxysmal AFib: paroxysmal
- Still in AFib, rates OK
- Amio 200 mg daily
- Eliquis is 2.5 bid. Now that Cr is less than 1.5 need to move to 5 BID but that will await a few more days.
- Ablation is planned
- Severe LAE noted
post op anemia - Hb 8.2 monitor
- if continue drop would hold Eliquis. Tx per colorectal surgery
Colorectal cancer
- S/p resection and closure of ileostomy on 04/15/2024
- NG tube placed ( abd distension/ decompression)
- tx per colorectal surgery
Valvular heart disease:
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
- Mod MR
- Mild-mod TR
Hypokalemia -
- K2.7
- replace
- check mag and replaceif needed
Acute on chronic CKD, improved, Cr on 04/22/2024 is 1.2. Peak Cr 2.3 on 02/25/2024
LBBB
CAD, cath 01/2024: 80-90% non-dominant RCA, luminals elsewhere
Subjective:
No CP, palps, or dyspnea
Echo 03/30/24: Normal biventricular size and systolic function without regional wall motion abnormality. Mild concentric left ventricular hypertrophy. Stage II diastolic dysfunction. Very severe left atrial enlargement. Mitral annular calcification.
Moderate mitral regurgitation. S/p Medtronic Evolut 29 TAVR. The peak/mean gradients across the valve are 24/12 mmHg. Moderate to severe paravalvular aortic regurgitation. Mild to moderate tricuspid regurgitation.
Physical Exam
Vital Signs/Labs
Vital Signs
Temp Pulse Resp BP Pulse Ox
97.9 F 75 16 139/56 98
04/23/24 03:56 04/23/24 03:56 04/23/24 03:56 04/23/24 03:56 04/23/24 03:56
04/22/24 04/23/24 04/24/24
06:59 06:59 06:59
Actual Weight 64.637 kg 65.913 kg
04/23/24 06:05
04/23/24 06:05
Physical Exam
Constitutional: No acute distress
Cardiovascular: Rhythm & rate is regular
Respiratory: Respiratory effort normal, Wheeze Absent and Rhonchi Absent
GI: Soft
Neuro/Psych: Alert
Data Reviewed
-
Date of Service: April 23, 2024
Medical Decision Making: Review of Case with other Provider (Dr Tenorio)
EKG: Report Reviewed by me
Medical Tests (PFT, Pathology etc): Report Reviewed by me
Labs: Labs Reviewed by me
[2024-04-23] MEDS: KCL 160 MEQ IV (08:35)
[2024-04-23] MEDS: PACERONE 200 MG PO (08:38)
[2024-04-23] MEDS: ProAmatine PO ×3 (08:40→16:01)
[2024-04-23] MEDS: ELIQUIS 2.5 MG PO ×2 (08:40→20:15)
[2024-04-23 08:52] LABS: Magnesium 1.6 mg/dl (1.6-2.3)
--- NOTE | 2024-04-23 09:56 | W.PN.CRS1 ---
Today's Communication / Plan
-
monitor ngt output - may remove later today
replete K and recheck labs
Assessment/Plan
-
POD#7 ileostomy reversal, removal of infusaport
Tachycardic yesterday upon movement
Hgb 8.2 (9.6)
04/20: Moderate gaseous distention of the entire colon. Mild dilation of a loop of small bowel in the right lower abdomen. Air-fluid levels on the erect view. Findings most likely representing adynamic ileus.
� NGT flushed with 40ml. Output is 5ml since placement. Will check with nurse later in the day for output. May remove it output still low.
- Hypokalemia with a potassium of 2.7. Repleted by cardiology. Repeat labs this afternoon.
- Hgb 8.2 from 9.6. Anemia likely due to dilutional.
� Continue pain control with Tylenol, oxycodone and Dilaudid as needed
� Appreciate cardiology, continue midodrine and amiodarone p.o.
� Continue Eliquis p.o. through NGT, but okay to change to heparin gtt if needed.
� Encourage IS/OOB
- Giuseppe to be removed prior to discharge
- Okay to shower
- Clamp NGT for 30 min for meds and ambulation
Subjective Data
Procedure
04/15- Resection and closure of ileostomy and removal of [id number]-Acsz.
Subjective Data
Date of Service: April 23, 2024
Patient states she has been passing flatus. She is tender around her incision. She has stopped burping. She feels a little crampy.
Objective Data
-
Vital Signs
Temp Pulse Resp BP Pulse Ox
98.1 F 70 18 130/76 100
04/23/24 07:53 04/23/24 07:53 04/23/24 07:53 04/23/24 08:40 04/23/24 07:53
Intake & Output
04/22/24 04/23/24 04/24/24
06:59 06:59 06:59
Intake Total 180 / 180 1610 / 1610
Output Total / 5
Balance 180 / 180 1605 / 1605
Intake:
Oral fluids 180 / 180 480 / 480
IV fluids (Total) 1100 / 1100
Amount instilled into GI Tube (
Total)
[place] Sump / 30
Output:
Gastrointestinal tube output (
Total)
[place] Sump /
Other:
Number of approximated MODERATE 2 1
amounts of urine
Physical Exam
-
General: No Acute Distress and AOx3
Abdomen: Soft, Non Distended and Tender (mild)
Wound: Dressing in Place
--- NOTE | 2024-04-23 09:57 | CM ---
Chart reviewed and plan is to home when stable, labs pending.
Plan; Home when stable.
[2024-04-23] MEDS: D5/0.9% with KCL 40 MEQ 1000 IV ×2 (11:17→23:36)
[2024-04-23 13:27] LABS: Hemoglobin 8.6 g/dL (12.0-16.0); Mean Corp Hgb Conc. 34.4 g/dL (33.0-37.0); Mean Corpuscular Hgb 33.3 pg (27.0-31.0); Mean Corpuscular Volume 96.9 fL (81.0-99.0); Mean Platelet Volume 9.8 fL (7.4-10.4); Platelet Count 144 10^3/uL (130-400); Red Blood Cell Count 2.58 10^6/uL (4.20-5.40); Red Cell Dist. Width 16.2 % (11.5-14.5); White Blood Cell Count 4.9 10^3/uL (4.8-10.8)
[2024-04-23 13:41] LABS: Albumin 3.3 g/dl (3.5-5.0); Blood Urea Nitrogen 13 mg/dl (7-17); Calcium 8.7 mg/dl (8.4-10.2); Carbon Dioxide 17 mmol/L (22-30); Chloride 115 mmol/L (98-107); Estimated Creatinine Clearance 32 ml/min; Glucose 91 mg/dl (70-99); Phosphorus 2.2 mg/dl (2.5-4.5); Sodium 144 mmol/L (135-145); eGFR 46.33
[2024-04-23] MEDS: NSS IV (16:34)
[2024-04-23] MEDS: TYLENOL 650 MG PO (21:01)
[2024-04-24 03:42] VITALS: BP 126/65
[2024-04-24 06:00] VITALS: BMI 26.3
[2024-04-24 07:00] VITALS: BP 124/54
[2024-04-24 08:15] LABS: % Basophils 0.5 % (0-2); % Immature Granulocytes 0.5 % (0-0.5); % Lymphocytes 7.8 % (20.5-51.1); % Neutrophils 79.2 % (42.2-75.2); Absolute Eosinophils 0.1 10^3/uL (0-0.7); Absolute Lymphocytes 0.3 10^3/uL (1.2-3.4); Absolute Monocytes 0.4 10^3/uL (0.1-0.6); Absolute Neutrophils 3.2 10^3/uL (1.4-6.5); Hematocrit 23.8 % (37.0-47.0); Hemoglobin 8.1 g/dL (12.0-16.0); Mean Corpuscular Hgb 33.2 pg (27.0-31.0); Mean Corpuscular Volume 97.5 fL (81.0-99.0); Mean Platelet Volume 10.4 fL (7.4-10.4); Nucleated Red Blood Cells % 0 %; Platelet Count 141 10^3/uL (130-400); Red Blood Cell Count 2.44 10^6/uL (4.20-5.40); Red Cell Dist. Width 16.3 % (11.5-14.5)
--- NOTE | 2024-04-24 08:39 | W.PN.CRS1 ---
Today's Communication / Plan
-
as below
Assessment/Plan
-
POD 9 ileostomy reversal, removal of infusaport with delayed return of bowel function
AFVSS
Labs pending
� Follow-up labs
� Continue clears due to persistent distention; if she continues to have bowel function with improvement in distention, okay to advance to full's this p.m.
� Continue pain control with Tylenol, oxycodone and Dilaudid as needed
� Appreciate cardiology, continue midodrine and amiodarone p.o.
� Continue Eliquis p.o.
� Encourage IS/OOB
Subjective Data
Procedure
04/15- Resection and closure of ileostomy and removal of [id number].
Subjective Data
Date of Service: April 24, 2024
No overnight events.
Pain controlled.
Denies nausea/vomiting. Tolerating clears.
+flatus +BMs (some liquid brown stools) +voiding
Objective Data
-
Vital Signs
Temp Pulse Resp BP Pulse Ox
98.5 F 79 14 126/65 98
04/24/24 03:42 04/24/24 03:42 04/24/24 03:42 04/24/24 03:42 04/24/24 03:42
Intake & Output
04/23/24 04/24/24 04/25/24
06:59 06:59 06:59
Intake Total 1610 / 1610 2409 / 2409
Output Total 5 / 5 95 / 95
Balance 1605 / 1605 2314 / 2314
Intake:
Oral fluids 480 / 480
IV fluids (Total) 1100 / 1100 2179 / 2179
IV piggybacks 160 / 160
Amount instilled into GI Tube ( 30 / 30 70 / 70
Total)
[place] Sump 30 / 30 70 / 70
Output:
Gastrointestinal tube output (
Total)
[place] Sump
Other:
Number of approximated MODERATE 1 1
amounts of urine
Lab Results
04/24/24 08:00
Physical Exam
-
General: No Acute Distress and AOx3
Abdomen: Soft, Distended (Mildly to moderately distended with tympany) and Tender (Appropriately tender near surgical wound)
Skin: Warm and Dry
Wound: No Signs of Infection, Dressing in Place, No Skin Erythema and Other ([place] drain in place)
[2024-04-24] MEDS: ProAmatine 5 MG PO ×2 (08:59→17:14)
[2024-04-24] MEDS: ELIQUIS 2.5 MG PO (08:59)
[2024-04-24] MEDS: PACERONE 200 MG PO (08:59)
[2024-04-24] MEDS: D5/0.9% with KCL 40 MEQ 1000 IV ×2 (09:00→21:19)
[2024-04-24 09:27] LABS: Blood Urea Nitrogen 10 mg/dl (7-17); Calcium 9.1 mg/dl (8.4-10.2); Carbon Dioxide 19 mmol/L (22-30); Chloride 117 mmol/L (98-107); Estimated Creatinine Clearance 38 ml/min; Glucose 84 mg/dl (70-99); Sodium 146 mmol/L (135-145); eGFR 57.66
--- NOTE | 2024-04-24 09:36 | W.PN.CD ---
Today's Communication / Plan
-
appropriate eliquis dose is 5mg po bid will resume
no further cardiac recommendations
I will sign off and return prn
Impression / Plan
-
79 y/o female who follows with Dr. Torres and has a history of paroxysmal AFIB (with high burden) on amiodarone and Eliquis with plans for ablation, colorectal cancer, severe s/p TAVR 02/2024, hyperthyroidism on methimazole, and LBBB who is now
s/p ostomy reversal.
Paroxysmal AFib: paroxysmal
- Still in AFib, rates OK
- Amio 200 mg daily
- Eliquis is 2.5 bid. Now that Cr is less than 1.5 need to move to 5 BID (she is not happy with the appropriate dose, explained the benefit vs the risk of nusance bleeding)
- Ablation is planned
- Severe LAE noted
post op anemia - Hb 8.2 monitor but stable over 3 checks
- as per surgery
Colorectal cancer
- S/p resection and closure of ileostomy on 04/15/2024
- NG tube placed ( abd distension/ decompression)
- tx per colorectal surgery
Valvular heart disease:
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
- Mod MR
- Mild-mod TR
Hypokalemia -
- K stil 3---being repleted currently
Acute on chronic CKD, improved, Cr on 04/22/2024 is 1.2. Peak Cr 2.3 on 02/25/2024
LBBB
CAD, cath 01/2024: 80-90% non-dominant RCA, luminals elsewhere
Subjective:
No CP, palps, or dyspnea. She is hoping to go home
Echo 03/30/24: Normal biventricular size and systolic function without regional wall motion abnormality. Mild concentric left ventricular hypertrophy. Stage II diastolic dysfunction. Very severe left atrial enlargement. Mitral annular calcification.
Moderate mitral regurgitation. S/p Medtronic Evolut 29 TAVR. The peak/mean gradients across the valve are 24/12 mmHg. Moderate to severe paravalvular aortic regurgitation. Mild to moderate tricuspid regurgitation.
Physical Exam
Vital Signs/Labs
Vital Signs
Temp Pulse Resp BP Pulse Ox
98.5 F 79 14 126/65 98
04/24/24 03:42 04/24/24 03:42 04/24/24 03:42 04/24/24 03:42 04/24/24 03:42
04/23/24 04/24/24 04/25/24
06:59 06:59 06:59
Actual Weight 65.913 kg 67.217 kg
04/24/24 08:00
04/24/24 08:00
Magnesium 1.6 mg/dl (1.6-2.3) 04/23/24 06:05
Physical Exam
Constitutional: No acute distress
Cardiovascular: Pedal edema is absent, JVD pressure is normal and Rhythm/rate is irregular
Respiratory: Respiratory effort normal, Lungs clear to auscul., Wheeze Absent, Crackles Absent and Rhonchi Absent
Neuro/Psych: AO x 3
Data Reviewed
-
Date of Service: April 24, 2024
EKG: Other (fib rate controlled)
[2024-04-24 11:00] VITALS: BP 133/57
[2024-04-24] MEDS: ProAmatine PO (13:18)
[2024-04-24 15:00] VITALS: BP 110/58
--- NOTE | 2024-04-24 15:16 | CM ---
Home no needs when stable.
Plan; Home no needs.
[2024-04-24 19:50] VITALS: BP 116/56
[2024-04-24] MEDS: ELIQUIS 5 MG PO (21:09)
[2024-04-24] MEDS: ROXICODONE 5 MG PO (21:10)
[2024-04-24] MEDS: TYLENOL 650 MG PO (21:11)
[2024-04-24 23:45] VITALS: BP 110/57
[2024-04-25 03:47] VITALS: BP 119/49
[2024-04-25 04:32] VITALS: BMI 26.3
[2024-04-25 07:00] VITALS: BP 124/56
[2024-04-25 08:24] LABS: Hematocrit 24.1 % (37.0-47.0); Hemoglobin 8.1 g/dL (12.0-16.0); Mean Corp Hgb Conc. 33.6 g/dL (33.0-37.0); Mean Corpuscular Hgb 33.1 pg (27.0-31.0); Mean Corpuscular Volume 98.4 fL (81.0-99.0); Platelet Count 140 10^3/uL (130-400); Red Blood Cell Count 2.45 10^6/uL (4.20-5.40); Red Cell Dist. Width 16.7 % (11.5-14.5); White Blood Cell Count 4.1 10^3/uL (4.8-10.8)
[2024-04-25 09:01] LABS: Blood Urea Nitrogen 6 mg/dl (7-17); Calcium 8.6 mg/dl (8.4-10.2); Carbon Dioxide 18 mmol/L (22-30); Chloride 118 mmol/L (98-107); Estimated Creatinine Clearance 35 ml/min; Glucose 93 mg/dl (70-99); Magnesium 1.5 mg/dl (1.6-2.3); Potassium 3.5 mmol/L (3.5-5.1); Sodium 146 mmol/L (135-145); eGFR 51.43
[2024-04-25] MEDS: ProAmatine 5 MG PO ×2 (09:11→13:29)
[2024-04-25] MEDS: PACERONE 200 MG PO (09:11)
[2024-04-25] MEDS: ELIQUIS 5 MG PO ×2 (09:11→20:33)
[2024-04-25] MEDS: MAGNESIUM SULFATE 50 IV (09:48)
--- NOTE | 2024-04-25 10:29 | W.PN.GS2 ---
Addendum entered and electronically signed by Allen Esteves MD 04/25/24 10:43:
I saw and examined the patient.
The Relocation Commissioner's note was reviewed and I agree with the note.
Comment: Improving. Anxious to go home. Jim CLD. Passing flatus, denies n/v with CLD. Exam approp, giuseppe in place, wound cdi with some dried blood. Plan to adv to FLD, will try LRD later this brayan if she does well. Plan to remove giuseppe prior to
DC, possibly tomorrow.
Original Note:
Today's Communication / Plan
-
Advance diet as tolerated
Replace electrolytes
Assessment / Plan
-
79 yo female with h/o chf, afib and rectal ca s/p ileostomy now POD #10 resection and closure of ileostomy with removal of infusaport
AFVSS
Hemoglobin stable
Hypokalemia/hypomagnesemia secondary to GI losses
Returning GI function/resolving Ileus
--Advance to FLD, tentatively LRD later today if tolerating
--Cardiology following
--D/C IVF
--c/w Eliquis
--Replace electrolytes and recheck labs in AM
--Multimodal analgesics
--C/W Giuseppe drain, anticipate removal prior to discharge
--Encourage OOB/increase activity
Subjective Data
-
Date of Service: April 25, 2024
Patient seen and examined at bedside with Dr Esteves. Denies n/v. Tolerating clears. No belching. Passing a significant amount of flatus.
Objective Data
-
Intake and Output
04/24/24 04/25/24 04/26/24
06:59 06:59 06:59
Intake Total 2409 / 2409 960 / 960
Output Total 95 / 95
Balance 2314 / 2314 960 / 960
Intake:
Oral fluids 96 / 960
IV fluids (Total) 2178 / 2178
IV piggybacks 160 / 160
Amount instilled into GI Tube ( 70 /
Total)
Luna Sump 70 / 70
Output:
Gastrointestinal tube output (
Total)
Luna Sump /
Other:
Number of approximated MODERATE 1 2
amounts of urine
Vital Signs
Temp Pulse Resp BP Pulse Ox
98.2 F 65 20 124/56 100
04/25/24 07:00 04/25/24 07:00 04/25/24 07:00 04/25/24 07:00 04/25/24 07:00
Lab Results
04/25/24 08:07
04/25/24 08:07
Calcium 8.6 mg/dl (8.4-10.2) 04/25/24 08:07
Phosphorus 2.2 mg/dl (2.5-4.5) L 04/23/24 13:17
Magnesium 1.5 mg/dl (1.6-2.3) L 04/25/24 08:07
Total Bilirubin 0.2 mg/dl (0.2-1.3) 04/14/24 09:10
AST 35 U/L (14-36) 04/14/24 09:10
ALT 25 U/L (0-35) 04/14/24 09:10
Alkaline Phosphatase 78 U/L (38-126) 04/14/24 09:10
Total Protein 7.3 g/dl (6.3-8.2) 04/14/24 09:10
Albumin 3.3 g/dl (3.5-5.0) L 04/23/24 13:17
Physical Exam
-
NAD AAOx3
ABD: Softly protuberant but not tensely distended.
Nontender
Right sided old ileostomy site dry today. No further old blood/clot. Giuseppe drain remains in place, colby intact
[2024-04-25 11:00] VITALS: BP 136/68
[2024-04-25] MEDS: KCL 40 MEQ PO (11:26)
[2024-04-25 15:30] VITALS: BP 128/63
[2024-04-25] MEDS: ProAmatine PO (18:17)
[2024-04-25 19:30] VITALS: BP 99/57
[2024-04-25] MEDS: TYLENOL 650 MG PO (20:37)
[2024-04-25] MEDS: ROXICODONE 5 MG PO (20:37)
[2024-04-25 23:35] VITALS: BP 95/47
[2024-04-26 03:45] VITALS: BP 113/52
[2024-04-26 06:00] VITALS: BMI 27.2
[2024-04-26 06:03] LABS: Blood Urea Nitrogen 9 mg/dl (7-17); Calcium 8.7 mg/dl (8.4-10.2); Carbon Dioxide 16 mmol/L (22-30); Chloride 117 mmol/L (98-107); Estimated Creatinine Clearance 30 ml/min; Glucose 84 mg/dl (70-99); Potassium 3.5 mmol/L (3.5-5.1); Sodium 143 mmol/L (135-145); eGFR 42.09
[2024-04-26 08:13] VITALS: BP 111/52
[2024-04-26] MEDS: PACERONE 200 MG PO (09:08)
[2024-04-26] MEDS: ELIQUIS 5 MG PO (09:08)
[2024-04-26] MEDS: ProAmatine 5 MG PO (09:08)
--- NOTE | 2024-04-26 10:44 | W.PN.GS2 ---
Addendum entered and electronically signed by Allen Esteves MD 04/26/24 12:47:
I saw and examined the patient.
The Reinforcing Steel Worker Wire Mesh's note was reviewed and I agree with the note.
Comment: Ambulating, pain controlled, aryan PO, passing flatus and stool, asking to go home. AFVSS. Exam approp. DC home.
Original Note:
Today's Communication / Plan
-
dispo planning
Assessment / Plan
-
79 yo female with h/o chf, afib and rectal ca s/p ileostomy now POD #11 resection and closure of ileostomy with removal of infusaport
AFVSS
Electrolyte abnormalities resolved
Good bowel function and pain control
--Continue LRD
--Cardiology following, adjusted amio and eliquis
--Multimodal analgesics
--Removed Giuseppe drain
--Encourage OOB/increase activity
discharge to home with OP follow up planned this saturday for staple removal
Subjective Data
-
Date of Service: April 26, 2024
Patient seen and examined at bedside with Dr. Esteves. Denies n/v. Tolerating diet. Passing flatus/stools. Minimal pain.
Objective Data
-
Intake and Output
04/25/24 04/26/24 04/27/24
06:59 06:59 06:59
Intake Total 960 / 960 1250 / 1250
Balance 960 / 960 1250 / 1250
Intake:
Oral fluids 960 / 960 1200 / 1200
IV fluids (Total) 50 / 50
Other:
Number of approximated SMALL 1
amounts of urine
Number of approximated MODERATE 2 1
amounts of urine
How many times incontinent 3
MODERATE amount urine
Vital Signs
Temp Pulse Resp BP Pulse Ox
97.9 F 66 17 111/52 97
04/26/24 08:13 04/26/24 08:13 04/26/24 08:13 04/26/24 08:13 04/26/24 08:13
Lab Results
04/25/24 08:07
04/26/24 05:11
Calcium 8.7 mg/dl (8.4-10.2) 04/26/24 05:11
Phosphorus 2.2 mg/dl (2.5-4.5) L 04/23/24 13:17
Magnesium 2.0 mg/dl (1.6-2.3) 04/26/24 05:11
Total Bilirubin 0.2 mg/dl (0.2-1.3) 04/14/24 09:10
AST 35 U/L (14-36) 04/14/24 09:10
ALT 25 U/L (0-35) 04/14/24 09:10
Alkaline Phosphatase 78 U/L (38-126) 04/14/24 09:10
Total Protein 7.3 g/dl (6.3-8.2) 04/14/24 09:10
Albumin 3.3 g/dl (3.5-5.0) L 04/23/24 13:17
Physical Exam
-
NAD AAOx3
ABD: Softly protuberant but not tensely distended.
Nontender
Right sided old ileostomy site dry today. No further old blood/clot. Giuseppe drain removed, colby intact
--- NOTE | 2024-04-26 10:46 | W.DS.TRANS ---
Addendum entered and electronically signed by TIGIST Lew 04/26/24 16:41:
#[id number]
Original Note:
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
-
Discharge Instructions:
Sleep Apnea Risk Low
Discharge Diagnosis/Procedures Resection and closure of ileostomy and removal
of [id number].
Diet Low Residue
Activity No strenuous activity
Additional Activity No lifting over 10 pounds (gallon of milk)
Driving Restrictions No driving for 1 week
Bathing Restrictions OK to Shower
Wound Care Cover incision with gauze and tape daily. Okay
to remove to take a shower. Your colby will
be removed in your office appointment with
Jona.
Instructions: Low Fiber Diet
Stand-Alone Forms:
Changes to Home Medications: No
Discharge Medications:
DC Medications w/original date entered in [facility]
cyanocobalamin (vitamin B-12) 1,000 mcg tablet (Vitamin B-12) 1,000 mcg PO DAILY@1300 Supplement ##0 09/25/23
pantothenic acid (vit B5) 1 tab PO DAILY@1300 Supplement 09/25/23
vitamin B complex 1 tab PO DAILY@1300 Supplement 09/25/23
ascorbic acid (vitamin C) 1,000 mg tablet (Vitamin C) 1,000 mg PO DAILY@1300 Supplement 02/04/24
biotin 10,000 mcg capsule 10,000 mcg PO DAILY@1300 Supplement 02/04/24
calcium 333 mg-D3 8.3 mcg-magnesium ox 116.7 ht-C-U-minerals capsule (BoneUp) 1 - 2 cap PO BID Supplement 02/04/24
methimazole 10 mg tablet 2.5 mg PO DAILY@1300 Thyroid 02/04/24
quercetin 500 mg capsule 500 mg PO DAILY@1300 Supplement 02/04/24
midodrine 5 mg tablet 5 mg PO TID@0800,1300,1800 Blood pressure #90 tabs 02/29/24
collagen,hydrolysate 500 mg-biotin 800 mcg-ascorbic acid 50 mg capsule (Collagen 1500 Plus C) 2 cap PO DAILY 04/10/24
yecqvpvbikxz-flbtkeql-gggqug tablet (Multivitamin 50 Plus tablet) 1 tab PO DAILY 04/10/24
aspirin 81 mg capsule 81 mg PO DAILY 04/15/24
acetaminophen 325 mg tablet 650 mg (2 x 325 mg) PO Q4HPRN PRN mild pain #1 tab 04/26/24
amiodarone 200 mg tablet 200 mg PO DAILY Arrhythmia #0 tabs 04/26/24
apixaban 5 mg tablet (Eliquis) 5 mg PO BID Blood clot prevention/tx #0 tabs 04/26/24
oxycodone 5 mg tablet 5 mg PO Q4HPRN PRN breakthrough/severe pain #15 tabs 04/26/24
Home Medication Changes
Pending Results: No
[2024-04-26 11:01] VITALS: BP 134/52
== END 2024-04-26 11:53 | disposition home or self-care (01) | DRG 330 ==
LOC: 4 WEST ACU 09:28
PROVIDERS: Internal Medicine Cardiovascular Disease; Nurse Practitioner; Physician Assistant; Radiology Diagnostic Radiology; Registered Nurse; ADMITTING PHYSICIAN Surgery; FAMILY PHYSICIAN Family Medicine
PROC: 0WQF0ZZ Repair Abdominal Wall, Open Approach (ICD-10-PCS; 2024-04-15)
PROC: 0DBB0ZZ Excision of Ileum, Open Approach (ICD-10-PCS; 2024-04-15)
PROC: 0JPT0WZ Removal of Totally Implantable Vascular Access Device from Trunk Subcutaneous Tissue and Fascia, Open Approach (ICD-10-PCS; 2024-04-15)
PROC: 0D9670Z Drainage of Stomach with Drainage Device, Via Natural or Artificial Opening (ICD-10-PCS; 2024-04-22)
DX: Z43.2 Encounter for attention to ileostomy (principal); C20 Malignant neoplasm of rectum; K56.0 Paralytic ileus; I48.0 Paroxysmal atrial fibrillation; E05.90 Thyrotoxicosis, unspecified without thyrotoxic crisis or storm; I44.7 Left bundle-branch block, unspecified; E87.6 Hypokalemia; D64.89 Other specified anemias; N18.31 Chronic kidney disease, stage 3a; E83.42 Hypomagnesemia; R00.0 Tachycardia, unspecified; Z88.0 Allergy status to penicillin; Z88.8 Allergy status to other drugs, medicaments and biological substances; Z79.01 Long term (current) use of anticoagulants; Z95.2 Presence of prosthetic heart valve
CPT/HCPCS: 36415; 71045; 74019; 80048; 80053; 80069; 82378; 82728; 83036; 83540; 83550; 83735; 85014; 85018; 85025; 85027; 86850; 86900; 86901; 97116; 97162; 97530; A4648; C1776

== ENCOUNTER → 2024-05-01 16:00 | Outpatient (REF) | payer MEDICARE, SELFPAY ==
[2024-05-01 17:29] LABS: Albumin 3.5 g/dl (3.5-5.0); Blood Urea Nitrogen 23 mg/dl (7-17); Calcium 9.3 mg/dl (8.4-10.2); Carbon Dioxide 29 mmol/L (22-30); Chloride 105 mmol/L (98-107); Glucose 92 mg/dl (70-99); Phosphorus 2.5 mg/dl (2.5-4.5); Potassium 2.5 mmol/L (3.5-5.1); Sodium 144 mmol/L (135-145); eGFR 46.33
== END ==
LOC: REG 16:00
PROVIDERS: ATTENDING PHYSICIAN Internal Medicine Cardiovascular Disease; FAMILY PHYSICIAN Family Medicine; REFERRING PHYSICIAN Surgery
DX: I48.0 Paroxysmal atrial fibrillation (principal); I48.91 Unspecified atrial fibrillation; I35.0 Nonrheumatic aortic (valve) stenosis; D64.9 Anemia, unspecified; R60.0 Localized edema
CPT/HCPCS: 36415; 80069

== ENCOUNTER 2024-05-06 16:20 | Inpatient (IN) | payer MEDICARE, SELFPAY ==
[2024-05-06] VITALS (39 sets, daily range): BP systolic 57–125; BP diastolic 30–67; BMI 24.2
[2024-05-06] MEDS: NSS 1000 IV ×2 (14:10→18:36)
[2024-05-06 14:17] LABS: % Basophils 0.2 % (0-2); % Eosinophils 0.5 % (0-6); % Immature Granulocytes 0.8 % (0-0.5); % Lymphocytes 7.6 % (20.5-51.1); % Neutrophils 84.9 % (42.2-75.2); Absolute Immature Granulocytes 0.1 10^3/uL (0-0.05); Absolute Lymphocytes 0.5 10^3/uL (1.2-3.4); Absolute Monocytes 0.4 10^3/uL (0.1-0.6); Absolute Neutrophils 5.3 10^3/uL (1.4-6.5); Hematocrit 15.2 % (37.0-47.0); Hemoglobin 4.8 g/dL (12.0-16.0); Mean Corp Hgb Conc. 31.6 g/dL (33.0-37.0); Mean Corpuscular Hgb 30.6 pg (27.0-31.0); Mean Corpuscular Volume 96.8 fL (81.0-99.0); Mean Platelet Volume 10.5 fL (7.4-10.4); Nucleated Red Blood Cells % 0.3 %; Platelet Count 335 10^3/uL (130-400); Red Blood Cell Count 1.57 10^6/uL (4.20-5.40); Red Cell Dist. Width 15.9 % (11.5-14.5); White Blood Cell Count 6.2 10^3/uL (4.8-10.8)
[2024-05-06 14:18] LABS: INR 2.11; PT 23.9 Sec (11.4-14.6)
[2024-05-06 14:19] LABS: APTT 43.8 Sec (23.4-35.0)
--- NOTE | 2024-05-06 14:20 | ED.GENMED ---
History of Present Illness
<Carlos Tyalor PA-C - Last Filed: 05/06/24 15:34>
General
Chief Complaint: Rectal Bleeding
Source: patient and records
Time Seen by Provider: 05/06/24 13:46
History of Present Illness
History of Present Illness:
79-year-old female with past medical history of atrial fibrillation, CHF, rectal cancer status post chemoradiation followed by resection and ileostomy status post reversal of ileostomy done earlier this month presenting to the emergency department
for evaluation of abdominal pain, 3 episodes of bright red blood per rectum and loose stool that all started today, contacted her colorectal surgeon who directed patient to the ER for further evaluation. Patient still reports the abdominal
discomfort presently but otherwise no other symptoms. She denies any nausea or vomiting, fevers or infectious symptoms, chest pain or shortness of breath. Patient does take Eliquis and reports she did take her dose of Eliquis earlier today. No
other concerns
Past History
<Carlos Taylor PA-C - Last Filed: 05/06/24 15:34>
Past History
ED Past Medical History: Arrthythmia, Cancer, CHF, Hypothyroidism and Other (Aortic stenosis)
ED Past Surgical History: Appendectomy, Tonsilectomy and Other (Laparoscopy with cyst aspiration)
Social History
Tobacco: Former smoker
Alcohol: None
Drug: None
Personal: Single
Living: with family
Review of Systems
<Carlos Taylor PA-C - Last Filed: 05/06/24 15:34>
Review of Systems
All Other Systems: ROS reviewed and negative except as documented in HPI and ROS
Phy Exam
<Carlos Taylor PA-C - Last Filed: 05/06/24 15:34>
Physical Exam
Physical Exam:
GENERAL: Alert , appears mildly uncomfortable, pale, somewhat frail
EYE: clear conjunctiva b/l
HEAD: NCAT
ENT: o/p clr, mmm.
CARDIAC: Tachycardic rate and.
LUNGS: Clear breath sounds bilaterally, no acute respiratory distress, no wheezes/rales/rhonchi
ABDOMEN: Soft, periumbilical and left mid abdominal tenderness, no r/g, no cvat
Rectal exam: Chaperoned by ED RN Rosita: Light brown stool with small bright red blood streaks/clots
NEUROLOGICAL: Alert and oriented
SKIN: Warm and dry, skin intact.
MUSCULOSKELETAL: No edema, well perfused.
PSYCH: Normal and appropriate interaction.
Scores
<Carlos Taylor PA-C - Last Filed: 05/06/24 15:34>
Heart Failure Risk
Heart Failure Risk Score: Not Applicable
Heart Score for Chest Pain Patients
STEMI patient?: Not applicable
Withdrawal Assessment of Alcohol
Withdrawal Assessment Completed?: Not applicable
Course
<Carlos Taylor PA-C - Last Filed: 05/06/24 15:34>
Orders/Labs/Results
Orders:
Orders
05/06/24 13:47
Electrocardiogram (*1) Urgent
Reason for Study: Abdominal Pain
EKG- Treatment ONCE
05/06/24 13:55
Type+Screen Urgent
Complete Blood Count/With Diff Urgent
Comprehensive Metabolic Panel Urgent
Lipase Urgent
Manual Differential Urgent
PTT Urgent
Prothrombin Time Urgent
Troponin I Urgent
05/06/24 14:06
CT Angio Abd/Pelvis w/wo IV [CT Abd/pelvis Angio W/wo Iv] Urgent
Comment:
Reason For Exam: multiple episodes bloodied stool
05/06/24 14:10
0.9% Sodium Chloride 1000 ml [Nss] 1,000 ml IV BOLUS
05/06/24 14:31
* Blood Bank Products Urgent
Blood Bank Products: *Packed RBC Leuko(PRBC's)
Quantity: 2
Transfuse Today: Yes
Reason: Bleeding
05/06/24 14:39
Prothrombin Complex(Pcc),Human [Kcentra] 1,571 unit Empty Viaflex Container 100 ml [Viaflex Empty Container] 60 ml IV NOW
Does patient have a dx of serious acute active bleeding?: Yes
Does patient have prior history of HIT?: No
05/06/24 15:20
Consult Colorectal Surgery [ColoRectal Surgery Consult] Urgent
Consulting Provider: Jose Alfredo Tenorio
Was physician already notified: Yes
05/06/24 15:30
Blood Culture Q30M
RAJIV Source: Blood/Venous
Specimen Description:
Aztreonam [Azactam] 500 mg Syringe [Syringe-Pump] 0 ml IV NOW
05/06/24 15:37
Lactic Acid Q4H
Comment: CANCEL 2nd LACTIC ACID IF 1st LACTIC ACID IS LESS THAN 2
05/06/24 15:42
Admit/Transfer Patient As Directed
Co-Sign Provider:
Level of Care: Inpatient admission
Assign to:: ICU
Physician / Group: lakisha
Diagnosis: acute LGIB,Hemorrhagic shock,Severe ACBLA due to rectal bleed
Reason for Hospitalization: acute LGIB,Hemorrhagic shock,Severe ACBLA due to rectal bleed
Expected length of stay greater than two midnights?: Yes
ELOS- Estimated Length of Stay in days: 5
I certify the patient meets the requirements for IP care: Yes
05/06/24 15:44
Code Status As Directed
Resuscitation Status: Full Code
05/06/24 16:00
Blood Culture Q30M
RAJIV Source: Blood/Venous
Specimen Description:
05/06/24 19:30
Lactic Acid Q4H
Comment: CANCEL 2nd LACTIC ACID IF 1st LACTIC ACID IS LESS THAN 2
Abnormal Lab Results
05/06/24
13:55
RBC 1.57 L 10^6/uL
(4.20-5.40)
Hgb 4.8 L* g/dL
(12.0-16.0)
Hct 15.2 L* %
(37.0-47.0)
MCHC 31.6 L g/dL
(33.0-37.0)
RDW 15.9 H %
(11.5-14.5)
MPV 10.5 H fL
(7.4-10.4)
Abs Immat Gran (auto) 0.1 H 10^3/uL
(0-0.05)
Absolute Lymphs (auto) 0.5 L 10^3/uL
(1.2-3.4)
Immature Gran % 0.8 H %
(0-0.5)
Neutrophils % 84.9 H %
(42.2-75.2)
Lymphocytes % 7.6 L %
(20.5-51.1)
Band Neutrophils 24 H %
(0-3)
Lymphocytes (Manual) 13 L %
(20-51)
PT 23.9 H Sec
(11.4-14.6)
APTT 43.8 H Sec
(23.4-35.0)
BUN 22 H mg/dl
(7-17)
Creatinine 1.2 H mg/dL
(0.6-1.0)
Glucose 105 H mg/dl
(70-99)
Total Protein 5.7 L g/dl
(6.3-8.2)
Albumin 3.3 L g/dl
(3.5-5.0)
Crossmatch IS Only See Detail
05/06/24 13:55
05/06/24 13:55
Vital Signs
Initial and Last Documented VS:
Initial Vital Signs
Temp Pulse Resp BP
99.1 F 87 19 96/65
05/06/24 13:48 05/06/24 13:48 05/06/24 13:48 05/06/24 13:48
Last Documented Vital Signs
Temp Pulse Resp BP Pulse Ox
99.8 F 85 19 115/49 96
05/06/24 15:47 05/06/24 15:47 05/06/24 15:47 05/06/24 15:47 05/06/24 15:47
Veterinary Nurse consulted with Physician
Veterinary Nurse consulted with physician?: Yes
Name of Physician Consulted: Laurel
<Payal Barragan DO - Last Filed: 05/06/24 16:06>
Orders/Labs/Results
Orders:
Orders
05/06/24 13:47
Electrocardiogram (*1) Urgent
Reason for Study: Abdominal Pain
EKG- Treatment ONCE
05/06/24 13:55
Type+Screen Urgent
Complete Blood Count/With Diff Urgent
Comprehensive Metabolic Panel Urgent
Lipase Urgent
Manual Differential Urgent
PTT Urgent
Prothrombin Time Urgent
Troponin I Urgent
05/06/24 14:06
CT Angio Abd/Pelvis w/wo IV [CT Abd/pelvis Angio W/wo Iv] Urgent
Comment:
Reason For Exam: multiple episodes bloodied stool
05/06/24 14:10
0.9% Sodium Chloride 1000 ml [Nss] 1,000 ml IV BOLUS
05/06/24 14:31
* Blood Bank Products Urgent
Blood Bank Products: *Packed RBC Leuko(PRBC's)
Quantity: 2
Transfuse Today: Yes
Reason: Bleeding
05/06/24 14:39
Prothrombin Complex(Pcc),Human [Kcentra] 1,571 unit Empty Viaflex Container 100 ml [Viaflex Empty Container] 60 ml IV NOW
Does patient have a dx of serious acute active bleeding?: Yes
Does patient have prior history of HIT?: No
05/06/24 15:20
Consult Colorectal Surgery [ColoRectal Surgery Consult] Urgent
Consulting Provider: Jose Alfredo Tenorio
Was physician already notified: Yes
05/06/24 15:30
Blood Culture Q30M
RAJIV Source: Blood/Venous
Specimen Description:
Aztreonam [Azactam] 500 mg Syringe [Syringe-Pump] 0 ml IV NOW
05/06/24 15:37
Lactic Acid Q4H
Comment: CANCEL 2nd LACTIC ACID IF 1st LACTIC ACID IS LESS THAN 2
05/06/24 15:42
Admit/Transfer Patient As Directed
Co-Sign Provider:
Level of Care: Inpatient admission
Assign to:: ICU
Physician / Group: gregoryy
Diagnosis: acute LGIB,Hemorrhagic shock,Severe ACBLA due to rectal bleed
Reason for Hospitalization: acute LGIB,Hemorrhagic shock,Severe ACBLA due to rectal bleed
Expected length of stay greater than two midnights?: Yes
ELOS- Estimated Length of Stay in days: 5
I certify the patient meets the requirements for IP care: Yes
05/06/24 15:44
Code Status As Directed
Resuscitation Status: Full Code
05/06/24 16:00
Blood Culture Q30M
RAJIV Source: Blood/Venous
Specimen Description:
05/06/24 19:30
Lactic Acid Q4H
Comment: CANCEL 2nd LACTIC ACID IF 1st LACTIC ACID IS LESS THAN 2
Abnormal Lab Results
05/06/24
13:55
RBC 1.57 L 10^6/uL
(4.20-5.40)
Hgb 4.8 L* g/dL
(12.0-16.0)
Hct 15.2 L* %
(37.0-47.0)
MCHC 31.6 L g/dL
(33.0-37.0)
RDW 15.9 H %
(11.5-14.5)
MPV 10.5 H fL
(7.4-10.4)
Abs Immat Gran (auto) 0.1 H 10^3/uL
(0-0.05)
Absolute Lymphs (auto) 0.5 L 10^3/uL
(1.2-3.4)
Immature Gran % 0.8 H %
(0-0.5)
Neutrophils % 84.9 H %
(42.2-75.2)
Lymphocytes % 7.6 L %
(20.5-51.1)
Band Neutrophils 24 H %
(0-3)
Lymphocytes (Manual) 13 L %
(20-51)
PT 23.9 H Sec
(11.4-14.6)
APTT 43.8 H Sec
(23.4-35.0)
BUN 22 H mg/dl
(7-17)
Creatinine 1.2 H mg/dL
(0.6-1.0)
Glucose 105 H mg/dl
(70-99)
Total Protein 5.7 L g/dl
(6.3-8.2)
Albumin 3.3 L g/dl
(3.5-5.0)
Crossmatch IS Only See Detail
05/06/24 13:55
05/06/24 13:55
Vital Signs
Initial and Last Documented VS:
Initial Vital Signs
Temp Pulse Resp BP
99.1 F 87 19 96/65
05/06/24 13:48 05/06/24 13:48 05/06/24 13:48 05/06/24 13:48
Last Documented Vital Signs
Temp Pulse Resp BP Pulse Ox
99.8 F 85 19 115/49 96
05/06/24 15:47 05/06/24 15:47 05/06/24 15:47 05/06/24 15:47 05/06/24 15:47
<Carlos Taylor PA-C - Last Filed: 05/06/24 15:34>
MDM/Problems Addressed
Differential Diagnosis Includes:
Hemorrhoidal bleeding, postoperative bleeding, diverticular bleed, anemia
MDM/Problems Addressed:
79-year-old female presenting to the ER for evaluation of gastrointestinal bleeding, 3 episodes today. Arrives to the ER via EMS and she is hypotensive and tachycardic. 2 large-bore IVs were started with IV fluid. Patient consented for blood.
Notes she has had blood transfusions this year. CTA of the abdomen and pelvis ordered to rule out any active bleeding. Will consult with colorectal and GI as needed. Anticipate admission.
<Carlos Taylor PA-C - Last Filed: 05/06/24 15:34>
*Pulse Oximetry
Patient hypoxic: no
*Critical Care Note
Total Time (30-74mins, 75-104mins- exclusive of procedures): 40
comment:
Critical care statement: A total of 40 minutes of critical care time was provided for this patient. This includes management of unstable vital signs, evaluation of the patient at bedside, reviewing the patient's pertinent medical records, discussion
with consultants, review of old EKGs and review of pertinent medical records. This time with separate from time utilized to perform the aforementioned documented procedures
Data Reviewed
Review of Other/Old Records Reveals: Labs, Records and Discharge Summary
<Carlos Taylor PA-C - Last Filed: 05/06/24 15:34>
Patient Management
Discussion with other providers: Hospitalist and Cash Checker
Escalation/DeEscalation of care consider admission/obs:
Patient's hemoglobin returned at 4.8. She also has a leftward shift with a bandemia of 24%. INR 2.1. Mild JAKY. Kcentra ordered for reversal of patient's Eliquis which she took this morning. 2 units packed red blood cells ordered for her anemia.
CTA results pending. I notified colorectal surgery who will come to the ER to evaluate the patient. Hospitalist team was notified who accepts for continued evaluation and treatment. Following the CT scan patient had temperature rechecked as she
is complaining of being quite cold and noted to be rigors. Low-grade temp of 99.9. Lactic acid and blood cultures ordered. Patient is penicillin allergic so unable to give Zosyn. Discussed with hospitalist team who is recommending Azactam.
ED Attending Note
<Carlos Taylor PA-C - Last Filed: 05/06/24 15:34>
-
Portions of this chart may have been created with voice recognition software.� Occasional wrong word or��sound alike� substitutions may have occurred due to the inherent limitations of voice recognition software.
<Payal Barragan DO - Last Filed: 05/06/24 16:06>
ED Attending Note
Patient seen and examined by attending physician: Yes
I performed the substantive portion of visit, reviewed & personally made and approve the management plan that is documented in note by myself or MARK.: Yes
I performed a history and physical exam of patient and discussed management with resident, I reviewed resident's note and agree with documented findings and plan of care.: Yes
ED Attending Note:
79-year-old female with history of atrial fibrillation on Eliquis, CHF, rectal cancer status post chemoradiation followed by resection and ileostomy status post reversal of ileostomy done 04/15 coming in with generalized abdominal pain and bright red
blood per rectum. Patient follows with colorectal surgery. Patient did take her Eliquis today. Patient called her colorectal surgeon prior to arrival who advised to come in. Vital signs on arrival significant for hypotension.
Initial exam performed by physician producer assistant, noted generalized abdominal pain near patient incision site. No marcus hematochezia, however Hemoccult positive. Patient with history of anemia and transfusions in the past, so initial plan for
laboratory analysis and CT imaging of the abdomen. Alerted by physician producer assistant that patient's pressure was dropping. In the setting of GI bleed and hypotension, concern for active GI bleed. Plan for GI bleeding scan to ensure no active
arterial source. Colorectal team made aware of patient's arrival to the emergency department.
14:10 -hemoglobin is low at 4.3. Patient consented for blood, plan for transfusion.
15:30 -patient noted to have bandemia with presenting hypotension and now low-grade fever. Sepsis at this time is a consideration. Adding lactic acid and blood cultures. Patient will get broad-spectrum antibiotics
16:00 -CT with active GI bleed, however does show postsurgical fluid collection. Given potential infectious symptoms, again indication for antibiotics. Plan for admission for anemia, hypertension, rectal bleeding
Discharge Plan
Departure
Patient Disposition: Admit
Date of Disposition: 05/06/24
Time of Disposition: 15:14
Presentation/result/management discussed w/ accepting MD/DO: Hospitalist
Discharge Problem:
Acute gastrointestinal bleeding, Anemia, JAKY (acute kidney injury)
Prescriptions:
No Action
cyanocobalamin (vitamin B-12) [Vitamin B-12] 1,000 mcg Tablet
1,000 mcg PO DAILY@1300 Qty: 0
vitamin B complex Tablet
1 tab PO DAILY@1300
biotin 10,000 mcg Capsule
10,000 mcg PO DAILY@1300
methimazole 10 mg Tablet
5 mg PO DAILY
ascorbic acid (vitamin C) [Vitamin C] 1,000 mg Tablet
1,000 mg PO DAILY@1300
quercetin 500 mg Capsule
500 mg PO DAILY@1300
BoneUp 333 mg-8.3 mcg-116.7 mg Capsule
2 cap PO DAILY
Collagen 1500 Plus C 500 mg-800 mcg- 50 mg Capsule
2 cap PO DAILY@1300
aspirin 81 mg Capsule
81 mg PO DAILY
amiodarone 200 mg tablet
200 mg PO DAILY Qty: 0 0RF
Eliquis 5 mg tablet
5 mg PO BID Qty: 0 0RF
acetaminophen [acetaminophen] 325 mg tablet
650 mg PO Q4HPRN PRN (Reason: mild pain) Qty: 1 0RF
oxycodone 5 mg tablet
5 mg PO Q4HPRN PRN (Reason: breakthrough/severe pain) Qty: 15 0RF
Theragen Tablet
1 tab PO DAILY
potassium chloride 10 mEq Tablet Extended Release
10 meq PO UD
Patient Comments:
05/06/24: Patient did not want to confirm frequency of this medication, 'just check the records'.
Rx Instructions:
on 05/01/24 take 40meq qpm, then 05/02/24 40meq daily and 20meq qpm, then 05/03/24 20meq bid then recheck labs on saturday05/04/24 (normal dose 10meq q48h)
furosemide 20 mg Tablet
20 mg PO Q48H
Patient Comments:
05/06/24: Patient did not want to confirm frequency of this medication, 'just check the records'.
BoneUp 333 mg-8.3 mcg-116.7 mg Capsule
1 cap PO HS
midodrine 5 mg tablet
5 mg PO TID
Patient Comments:
ecw on 04/28/24 suggest reduce to 2.5mg bid
Referrals:
Willie Ryan DO [Family Provider] -
Interventions
Interventions:
*Risk Screen - Suicide Last Done: 05/06/24 13:58
*General Assessment Last Done: 05/06/24 13:58
*Neglect/Abuse Screening Last Done: 05/06/24 13:58
ED- Fall Risk Assessment Last Done: 05/06/24 13:58
*ED COVID-19 Vaccine History Last Done: 05/06/24 13:58
[facility]-Lznfqa-Qwutjqtmoa Assessment Last Done: 05/06/24 13:58
ED- Cardiac Assessment Last Done: 05/06/24 13:58
ED- Pulmonary Assessment Last Done: 05/06/24 13:58
Discharge Date and Time
Print Language: NEPALI
[2024-05-06 14:29] LABS: ALT (SGPT) 15 U/L (0-35); AST (SGOT) 23 U/L (14-36); Albumin 3.3 g/dl (3.5-5.0); Alkaline Phosphatase 85 U/L (38-126); Blood Urea Nitrogen 22 mg/dl (7-17); Calcium 9.5 mg/dl (8.4-10.2); Carbon Dioxide 23 mmol/L (22-30); Chloride 105 mmol/L (98-107); Estimated Creatinine Clearance 35 ml/min; Glucose 105 mg/dl (70-99); Lipase 144 U/L (23-300); Potassium 4.9 mmol/L (3.5-5.1); Sodium 141 mmol/L (135-145); Total Bilirubin 0.5 mg/dl (0.2-1.3); Total Protein 5.7 g/dl (6.3-8.2); eGFR 46.33
--- NOTE | 2024-05-06 14:30 | PHANOTE ---
[employer](05/06/24)-Patient did not want to go over her current schedule of Lasix and Potassium Chloride, when pressed states to just check her records. Given recent fluctuation in dosage, and her attribution of her symptoms to the medication,
unable to confirm how she currently takes her medication.
[2024-05-06 14:33] LABS: Absolute Neutrophils -Man Diff 4.8 10^3/uL (1.4-6.5); Anisocytosis 1+; Band Neutrophils 24 % (0-3); Hypochromasia 2+; Lymphocytes 13 % (20-51); Metamyelocytes 1 % (-); Monocytes 7 % (2-9); Normal RBC Morphology No; Platelets Checked Yes; Polychromasia 1+; Segmented Neutrophils 55 % (42-75)
[2024-05-06 14:34] LABS: Ovalocytes 1+; Total Cells Counted 100
[2024-05-06 14:41] LABS: Troponin I < 0.012 ng/ml
--- NOTE | 2024-05-06 14:48 | CON.CRS ---
Consultation
-
Date/Time Consultation Requested: 05/06/2024, 14:45
Date/Time Consultation Performed: 05/06/2024, 15:15
Requesting Provider: Carlos Taylor PA-C
Performing Provider: Arturo Tenorio MD
Reason for Consultation: rectal bleeding
Medical History
-
Chief Complaint: Rectal bleeding
History of Present Illness:
79-year-old female with a past medical history of rectal cancer presents to the ER due to rectal pain. The patient is status post robotic low anterior resection and diverting loop ileostomy on 11/12/2023 for mid rectal cancer following total
neoadjuvant therapy with chemoradiation followed by consolidation chemotherapy. She subsequently underwent ileostomy reversal and port removal by Dr. Tenorio on 04/15/2024. She was admitted from 04/15/2024 through 04/26/2024. During that
hospitalization she did develop an ileus and had an NGT place. Eventually she was started on her Eliquis prior to her leaving.
The patient went to the ER earlier today due to abdominal pain, 3 episodes bright red blood per rectum since yesterday and loose stools that started today. She had called Dr. Tenorio earlier today who directed her for the ER. Currently she still has
abdominal pain but she is alert with rigors. She denies nausea. She has no fever but does have chills. She denies chest pain. She continues to have flatus. She took her Eliquis earlier today. Her hemoglobin is 4.8. Her white count is 6.2. She
remains afebrile. She is hypotensive with a blood pressure of 90/38 prior to that was 57/30. She is tachycardic in the 110s. CT angio is pending.
Past Medical History
Past Medical History: Other (measels, chicken pox, lupus, history of pneumonia, aortic stenosis, former smoker, seasonal allergies, cancer status post chemo and radiation, patient, hiatal hernia, atrial fibrillation)
Past Surgical History: Other (TAVR, tonsillectomy, appendectomy, low anterior resection with ostomy, ileostomy reversal and port removal)
Social History
Tobacco: Former Smoker
Family History
Family History: Reviewed & Not Pertinent
Allergies / Home Medications
Allergy/AdvReac Type Severity Reaction Status Date / Time
metoprolol Allergy Very low Verified 04/15/24 16:03
BP with
even low
doses of
metoprolol
Penicillins Allergy Hives Verified 04/15/24 16:03
�Medication �Instructions �Recorded �Confirmed �Type
cyanocobalamin (vitamin B-12) 1,000 mcg PO DAILY@1300 Supplement 09/25/23 05/06/24 History
1,000 mcg tablet (Vitamin B-12) ##0
vitamin B complex 1 tab PO DAILY@1300 Supplement 09/25/23 05/06/24 History
ascorbic acid (vitamin C) 1,000 mg 1,000 mg PO DAILY@1300 Supplement 02/04/24 05/06/24 History
tablet (Vitamin C)
biotin 10,000 mcg capsule 10,000 mcg PO DAILY@1300 Supplement 02/04/24 05/06/24 History
calcium 333 mg-D3 8.3 2 cap PO DAILY Supplement 02/04/24 05/06/24 History
mcg-magnesium ox 116.7
wx-D-E-minerals capsule (BoneUp)
methimazole 10 mg tablet 5 mg PO DAILY Thyroid 02/04/24 05/06/24 History
quercetin 500 mg capsule 500 mg PO DAILY@1300 Supplement 02/04/24 05/06/24 History
collagen,hydrolysate 500 mg-biotin 2 cap PO DAILY@1300 04/10/24 05/06/24 History
800 mcg-ascorbic acid 50 mg
capsule (Collagen 1500 Plus C)
aspirin 81 mg capsule 81 mg PO DAILY 04/15/24 05/06/24 History
acetaminophen 325 mg tablet 650 mg (2 x 325 mg) PO Q4HPRN PRN 04/26/24 05/06/24 Rx
mild pain #1 tab
amiodarone 200 mg tablet 200 mg PO DAILY Arrhythmia #0 tabs 04/26/24 05/06/24 Rx
apixaban 5 mg tablet (Eliquis) 5 mg PO BID Blood clot 04/26/24 05/06/24 Rx
prevention/tx #0 tabs
oxycodone 5 mg tablet 5 mg PO Q4HPRN PRN 04/26/24 05/06/24 Rx
breakthrough/severe pain #15 tabs
calcium 333 mg-D3 8.3 1 cap PO HS 05/06/24 05/06/24 History
mcg-magnesium ox 116.7
ll-X-X-minerals capsule (BoneUp)
furosemide 20 mg tablet 20 mg PO Q48H 05/06/24 05/06/24 History
midodrine 5 mg tablet 5 mg PO TID Blood pressure 05/06/24 05/06/24 History
potassium chloride 10 mEq 10 meq PO UD 05/06/24 05/06/24 History
tablet,extended release
therapeutic multivitamin 1 tab PO DAILY 05/06/24 05/06/24 History
Review of Systems
-
History Source: Patient
Abdomen/GI: Abdominal Pain
: Bleeding
A 10 point review of systems was completed, and was negative except as per HPI.
Physical Exam
Vital Signs
Temp 99.1 F 05/06/24 13:48
Pulse 118 05/06/24 14:04
Resp Rate 32 05/06/24 14:04
Blood pressure 90/38 05/06/24 14:04
SaO2 98 05/06/24 14:00
05/05/24 05/06/24 05/07/24
06:59 06:59 06:59
Actual Weight 65.9 kg
Body Mass Index (BMI) 24.2
Lab Results / Allergies
05/06/24 13:55
05/06/24 13:55
WBC 6.2 10^3/uL (4.8-10.8) 05/06/24 13:55
Hgb 4.8 g/dL (12.0-16.0) L* 05/06/24 13:55
Hct 15.2 % (37.0-47.0) L* 05/06/24 13:55
Plt Count 335 10^3/uL (130-400) 05/06/24 13:55
Abs Immat Gran (auto) 0.1 10^3/uL (0-0.05) H 05/06/24 13:55
Neutrophils % 84.9 % (42.2-75.2) H 05/06/24 13:55
Allergy/AdvReac Type Severity Reaction Status Date / Time
metoprolol Allergy Very low Verified 04/15/24 16:03
BP with
even low
doses of
metoprolol
Penicillins Allergy Hives Verified 04/15/24 16:03
Physical Exam
General: Chills and Other (very pale in appearance)
GI: Soft, Non Distended and Tender (RUQ/RLQ - moderate)
Neuro: AO x 3
Data Reviewed
-
Labs: Labs Reviewed by me, Discussed with Physician and Discussed with Patient
Old Records: Reviewed
Assessment / Plan
-
Assessment: 79-year-old female with a recent iliac reversal presents to the ER after having abdominal pain and episodes of rectal bleeding at home found to have a hemoglobin of 0.8, Cardiac, and blood pressure of 50s over 30s.
Plan:
-Urgent blood transfusion
-Admit to medical service
-Trend CBC
-Will await CTA of the abdomen and pelvis for further opinion
-Hold coumadin, getting K centra
-lactic pending
[2024-05-06] MEDS: KCENTRA 60 UNIT IV (14:57)
--- NOTE | 2024-05-06 15:32 | HPS.HSE ---
Addendum entered and electronically signed by Enzo Amaral MD 05/06/24 17:37:
CTA AP w/wo IV
- No evidence of acute GI bleed. Postoperative changes of prior partial bowel resection.
- There is a 4.8 x 3.0 cm slightly ill-defined likely developing collection in the presacral space which may be a postoperative collection.
- Similar appearance of the large cystic lesion extending from the left adnexa into the left retroperitoneal/anterior pararenal space with associated mass effect.
- There is apparent enhancement along the anterior inferior aspect of the lesion suspicious for cystic ovarian neoplasm.
- Bilateral adrenal lesions, similar in appearance to prior.
- Infrarenal abdominal aortic aneurysm which is unchanged from prior and measuring up to 3.5 cm.
- There is circumferential wall beginning of the urinary bladder which may be secondary to underdistention however can be seen with cystitis.
Addendum entered and electronically signed by Enzo Amaral MD 05/06/24 16:00:
Last dose of Eliquis at 10 am today
Original Note:
Family Physician
-
Family Physician: Willie Ryan,
Chief Complaint
-
Acute GIB , severe hypotension
History of Present Illness
79F HX Prx AF on Eliquis, CAD on ASA , CKD3a HX CHF , HX colorectal CA post chemoradiation follow by resection and reversal closure of ileostomy on 04/15/2024 seen at ER:
- abrupt onset of abdominal pain f/b 3 episodes of BRBPR and loose stool that all started today,
- Significant lab for coaulopatyt due to Eliquis
- reports the abdominal discomfort presently but otherwise no other symptoms.
At ER: tachycardic and severe hypotension
Hgb 4.8
Medical History
Past Medical History
Past Medical History: Reports Other
Additional Past Medical History:
Rectal Cancer Stage IIIB s/p Chemotherapy/Radiation, and Resection with Diverting Ileostomy
Single Vessel Coronary Artery Disease
Paroxysmal Atrial Fibrillation
Severe Aortic Stenosis
Chronic HFpEF
Hyperthyroidism
Depression
Past Surgical History: Reports Other
Additional Past Surgical History:
Robotic Left Anterior Resection with Diverting Loop Ileostomy
Tonsillectomy
Appendectomy
Social History
Tobacco: Former Smoker (1ppd x 48 years)
Alcohol: None
Drug: None
Family History
Family History: Not pertinent
Allergies / Home Medications
Allergies reflects when Allergies were last updated in [facility] [employer].
Home Medications with original date entered in [facility]
Allergy/Medication List:
Allergies
Allergy/AdvReac Type Severity Reaction Status Date / Time
metoprolol Allergy Unknown Verified 02/24/24 17:21
Penicillins Allergy Hives Verified 02/24/24 17:21
Home Medications
cyanocobalamin (vitamin B-12) 1,000 mcg tablet (Vitamin B-12) 1,000 mcg PO DAILY@1300 Supplement ##0 09/25/23
pantothenic acid (vit B5) 1 tab PO DAILY@1300 Supplement 09/25/23
vitamin B complex 1 tab PO DAILY@1300 Supplement 09/25/23
apixaban 5 mg tablet (Eliquis) 5 mg PO BID 30 days #60 tabs 11/26/23
ascorbic acid (vitamin C) 1,000 mg tablet (Vitamin C) 1,000 mg PO DAILY@129902/04/24
biotin 10,000 mcg capsule 10,000 mcg PO DAILY@129902/04/24
calcium 333 mg-D3 8.3 mcg-magnesium ox 116.7 ab-X-U-minerals capsule (BoneUp) 1 cap PO DAILY@129902/04/24
collagen-hyaluronic ypwe-xyxcmaotic-nufe extract 515 mg capsule 1 cap PO DAILY@129902/04/24
methimazole 10 mg tablet 10 mg PO DAILY@129902/04/24
fvqobdrl-jzyy-vvtbe acid 240 mcg-vit K 120 zmq-scustu-ulwg 293 tablet (Alive Women's 50 Plus (fruit-veg blend)) 1 tab PO DAILY@1300 02/04/24
quercetin 500 mg capsule 500 mg PO DAILY@129902/04/24
amiodarone 100 mg tablet 100 mg PO Q48H 02/24/24
amiodarone 200 mg tablet 200 mg PO Q48H 02/24/24
Review of Systems
-
Constitutional: Reports No Symptoms
EENT: Reports No Symptoms
Respiratory: Reports No Symptoms
Cardiac: Reports No Symptoms
Abdomen/GI: Reports Abdominal Pain and Bloody Stools
: Reports No Symptoms
Musculoskeletal: Reports No Symptoms
Skin: Reports No Symptoms
Neurological: Reports No Symptoms
Endocrine: Reports No Symptoms
Hematologic/Lymphatic: Reports No Symptoms
Psych: Reports No Symptoms
Physical Exam
Vital Signs
Vital Signs
Temp Pulse Resp BP Pulse Ox
99.0 F 89 18 95/67 99
05/06/24 15:29 05/06/24 15:29 05/06/24 15:29 05/06/24 15:29 05/06/24 15:29
Physical Exam
General: No Apparent Distress, Comfortable and Conversant
HEENT: NormoCephalic, Moist mucous membranes, Atraumatic and Other (pale conjunctiva )
Respiratory: Clear
Cardiac: S1/S2 and Regular Rhythm; No Murmur or Rub
GI: Soft and Non Tender
Rectal: Red and Deferred by Provider
Musculoskeletal: No Clubbing, No Cyanosis and No Edema
Skin: Other (pale complexion ); No Rash
Neuro: Nonfocal/grossly intact
Laboratory Results
-
05/06/24 13:55
05/06/24 13:55
Laboratory Results
PT 23.9 Sec (11.4-14.6) H 05/06/24 13:55
INR 2.11 05/06/24 13:55
APTT 43.8 Sec (23.4-35.0) H 05/06/24 13:55
Total Bilirubin 0.5 mg/dl (0.2-1.3) 05/06/24 13:55
AST 23 U/L (14-36) 05/06/24 13:55
ALT 15 U/L (0-35) 05/06/24 13:55
Alkaline Phosphatase 85 U/L (38-126) 05/06/24 13:55
Troponin I < 0.012 ng/ml 05/06/24 13:55
Lipase 144 U/L (23-300) 05/06/24 13:55
Data Reviewed
-
CT Scan: Other (pending )
Lab Data: Labs Reviewed by me
Old Records: Reviewed
Impression/Plan
-
Vital Signs
Temp Pulse Resp BP Pulse Ox
99.0 F 90 25 94/55 99
05/06/24 15:29 05/06/24 15:30 05/06/24 15:30 05/06/24 15:30 05/06/24 15:29
Laboratory Tests
04/25/24 05/01/24 05/06/24
08:07 16:12 13:55
WBC 6.2
Hgb 8.1 L 4.8 L*
MCV 96.8
Plt Count 335
Band Neutrophils 24 H
INR 2.11
APTT 43.8 H
BUN 22 H
Creatinine 1.2 H 1.2 H
eGFR 46.33 46.33
CTA AP w/wo IV pending
ASSESSMENT & PLAN
Acute GIB on Eliquis and ASA : s/p prothrombin complex
Hemorrhagic shock - somewhat improved SBP s/p NS 1 L Bolus
Severe ACBLA due to rectal bleed
S/p resection and closure of ileostomy on 04/15/2024
HX Colorectal cancer
- last dose of Eliquis:
- Agree with Prothrombin complex concentrate ( Kcentra)
- Agree with hemo resus with urgent Blood tx with 2 PRBCs ( Blood consented)
- NPO and IV NS fluid resus
- stat CTA AP w/wo IV to evaluate active bleeding
- H & H
- CRS consulted and at bed side
Active rigors @ ER
- HX PCN allergy
- BCx sent
- IV Azactam and IV Flagyl
Current Cr1.2 and eGFR is at baseline
At baseline CKD3a - basloe eGFR 45- 59
Chronic CKD, improved, Cr on 04/22/2024 is 1.2. Peak Cr 2.3 on 02/25/2024
- Trend Cr
-/w IVF
Paroxysmal AFib: paroxysmal : Ablation is planned
Known s evere LAE
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
- Hold and reverse Eliquis due to AC GIB
Valvular heart disease: Mod MR, Mild-mod TR
- TAVR for with moderate to severe paravalvular AI on echo 03/30/2024
Known LBBB
CAD, cath 01/2024: 80-90% non-dominant RCA, luminals elsewhere
DVT Px: SCD
Full code
ICU
Total Critical Care Time__60___ minutes.
I was immediately available to the patient and staff. I personally examined, reviewed labs, diagnostic images/reports, interpretations, treatment plans, discussed patient care with other providers and family or caregivers (if patient is unable
to make decisions), entered orders as appropriate and documented the medical record.
[2024-05-06 16:01] LABS: Lactic Acid 1.3 mmol/L (0.7-2.0)
--- NOTE | 2024-05-06 16:25 | CON.INTV ---
Consultation
Consultation Request
Date/Time Consultation Requested: 05/06
Date/Time Consultation Performed: 05/06
Reason for Consultation: Critical care
Medical History
-
History of Present Illness:
History primarily obtained from sister at bedside, reviewing medical records. 79-year-old female with history of rectal cancer, atrial fibrillation on chronic anticoagulation who is status post robotic low anterior resection and diverting loop
ileostomy followed by neoadjuvant therapy and chemoradiation. She underwent colostomy reversal and port removal 04/15/2024. She developed an ileus, treated conservatively, discharged 04/26/2024. Of note oral Eliquis was resumed prior to discharge
without any evidence of bleeding. She now presents with abdominal pain and episodes of bright red blood per rectum. Per my review, she states she noted blood in rectum with bowel movements few days ago. She is vague with details but did not
notify her colorectal surgeon. Per records, no history of nausea, emesis, fevers, chest pain, shortness of breath. Per EMS records, initial systolic pressure 50s and patient was given IV fluids. Upon arrival to [facility], temperature
99.1, pulse 87, breathing at 19, blood pressure 96/65. Patient was found to have a hemoglobin of 4.8, INR 2.1. She was given IV fluids, prothrombin complex. Patient was also given Zosyn therapy. Abdominal imaging revealed no evidence of acute GI
bleed. However there is an ill-defined collection of fluid which may be postoperative. Patient is being admitted to ICU.
Upon my evaluation of the ED, systolic pressure in the 110s. Patient is sleeping comfortably.
Reviewed outpatient records. Patient was seen by colorectal surgery 04/28/2024 at which time she was complaining of increased lower extremity swelling, 17 pound weight gain. At that time she was passing stool 3-4 times a day, improvement in
abdominal bloating. Plan was to follow-up with cardiology
.
PMH: Aortic stenosis, atrial fibrillation on anticoagulation, history of pneumonia, rhinitis, history of rectal cancer status post chemoradiation, history of TAVR, appendectomy, low anterior colon resection with ostomy and ileostomy status post
reversal and port removal
Past Medical History
Past Medical History: None (See above)
Past Surgical History: None (See above)
Social History
Tobacco: Former Smoker (Quit many years ago)
Alcohol: Occasional
Drug: None
Living: Alone
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
Family History
Family History: Other (No children. 2 sisters. Family history negative for blood clots)
Allergies / Home Medications
Allergies
Allergy/AdvReac Type Severity Reaction Status Date / Time
metoprolol Allergy Very low Verified 04/15/24 16:03
BP with
even low
doses of
metoprolol
Penicillins Allergy Hives Verified 04/15/24 16:03
Home Medications
�Medication �Instructions �Recorded �Confirmed �Last Taken �Type
cyanocobalamin (vitamin B-12) 1,000 mcg PO DAILY@1300 Supplement 09/25/23 05/06/24 1 Week Ago History
1,000 mcg tablet (Vitamin B-12) ##0 ~04/08/24
vitamin B complex 1 tab PO DAILY@1300 Supplement 09/25/23 05/06/24 1 Week Ago History
~04/08/24
ascorbic acid (vitamin C) 1,000 mg 1,000 mg PO DAILY@1300 Supplement 02/04/24 05/06/24 1 Week Ago History
tablet (Vitamin C) ~04/08/24
biotin 10,000 mcg capsule 10,000 mcg PO DAILY@1300 Supplement 02/04/24 05/06/24 04/08/24 History
calcium 333 mg-D3 8.3 2 cap PO DAILY Supplement 02/04/24 05/06/24 05/06/24 History
mcg-magnesium ox 116.7
gz-X-K-minerals capsule (BoneUp)
methimazole 10 mg tablet 5 mg PO DAILY Thyroid 02/04/24 05/06/24 05/06/24 History
quercetin 500 mg capsule 500 mg PO DAILY@1300 Supplement 02/04/24 05/06/24 1 Week Ago History
~04/08/24
collagen,hydrolysate 500 mg-biotin 2 cap PO DAILY@1300 04/10/24 05/06/24 1 Week Ago History
800 mcg-ascorbic acid 50 mg ~04/08/24
capsule (Collagen 1500 Plus C)
aspirin 81 mg capsule 81 mg PO DAILY 04/15/24 05/06/24 05/06/24 History
acetaminophen 325 mg tablet 650 mg (2 x 325 mg) PO Q4HPRN PRN 04/26/24 05/06/24 Unknown Rx
mild pain #1 tab
amiodarone 200 mg tablet 200 mg PO DAILY Arrhythmia #0 tabs 04/26/24 05/06/24 05/06/24 Rx
apixaban 5 mg tablet (Eliquis) 5 mg PO BID Blood clot 04/26/24 05/06/24 05/06/24 Rx
prevention/tx #0 tabs
oxycodone 5 mg tablet 5 mg PO Q4HPRN PRN 04/26/24 05/06/24 Unknown Rx
breakthrough/severe pain #15 tabs
calcium 333 mg-D3 8.3 1 cap PO HS 05/06/24 05/06/24 05/05/24 History
mcg-magnesium ox 116.7
kh-C-U-minerals capsule (BoneUp)
furosemide 20 mg tablet 20 mg PO Q48H 05/06/24 05/06/24 Unknown History
midodrine 5 mg tablet 5 mg PO TID Blood pressure 05/06/24 05/06/24 05/06/24 History
potassium chloride 10 mEq 10 meq PO UD 05/06/24 05/06/24 Unknown History
tablet,extended release
therapeutic multivitamin 1 tab PO DAILY 05/06/24 05/06/24 05/06/24 History
Review of Systems
-
Unable to Obtain full review of systems at this time due to: Acuity
All other systems: Negative unless noted
Vitals / Labs / Diagnostic Testing
Vital Signs
Temp Pulse Resp BP Pulse Ox
99.8 F 85 19 115/49 96
05/06/24 15:47 05/06/24 15:47 05/06/24 15:47 05/06/24 15:47 05/06/24 15:47
Lab Data
05/06/24 13:55
05/06/24 13:55
Laboratory Results
05/06/24
13:55
PT 23.9 H
INR 2.11
APTT 43.8 H
Diagnostic Testing:
Physical Exam
-
HEENT: Normocephalic, Anicteric and Other (Pallorous conjunctiva)
Cardiovascular: S1/S2, Regular Rhythm, Murmur (2/6) and Peripheral Edema (n)
Respiratory: Wheeze (n), Rales (n), Rhonchi (n) and Non-Labored Respirations
GI: Soft, Non Distended and Non Tender
Neurology: Awake, Alert and No Motor Deficits (Moving all extremities)
Skin: Other (Pallorous) and Other (Cool extremities)
General: Comfortable
Assessment
-
79-year-old female with history of atrial fibrillation on chronic Eliquis therapy, chronic kidney disease, colorectal cancer status post chemoradiation, resection, ileostomy, with recent reversal of ileostomy 04/15/2024. Now presents with abdominal
pain and bright red blood per rectum, found to be hypotensive, tachycardic, hemoglobin 4.8. Patient receiving IV fluids, prothrombin complex, blood products and admitted to ICU for further management 05/06/2024
Acute GI bleed
3 days plus of bright red blood per rectum, per my history
Hemorrhagic shock
Improved following IV fluids
S/p closure of ileostomy/port removal 04/15/2024
Incisional hernia repair, discharged 04/26/2024
Low-grade fever/chills
Acute onset abdominal pain
Chronic kidney disease
Baseline creatinine 1.2
Atrial fibrillation on Eliquis therapy
Amiodarone therapy
Planned ablation in the future
Valvular disease
Moderate MR
status post TAVR February 2024
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
Left bundle branch block
Coronary disease, per catheterization January 2024
Conditions present prior to admission
History of anemia, baseline hemoglobin 8.2
Colorectal cancer
Status post robotic resection,
chemoradiation completed April 2023
History of discoid lupus
Diagnosed age 18
Distant tobacco history
Plan/recommendations
At this time, patient is critically ill but appears to be stable
Following fluid resuscitation, transfusion
CT abdomen completed, per results, no evidence of active bleed. There is a fluid collection suspected to be postoperative
EKG with left bundle branch block, chronic
Recent echo 03/30/2024 with normal biventricular function, moderate MR, moderate to severe paravalvular aortic regurgitation
Moving forward
Continue with supportive care
Follow hemoglobin, transfuse as clinically indicated
Continue with IV fluids. Confirm adequate IV access
CT abdomen completed, no evidence of acute bleed per report await CRS review
Of note, patient had catheterization with coronary disease in the past, single-vessel 80% nondominant RCA, treated medically
Patient describes 3 days of blood per rectum. She does have a history of hemorrhoids
Patient has received Kcentra
Last dose of Eliquis was earlier today, 10 mg per correspondence
Patient developed fevers/rigors in the ED
Unclear whether this was infectious in nature. Cultures sent
Empiric antibiotics started, aztreonam provided
Outpatient records suggest significant weight gain, lower extremity swelling
Patient was due to see cardiology in the next few weeks
Follow clinically. No significant hypoxia at this time
Lung images on abdominal imaging do not suggest significant interstitial or pulm edema process
Await chest x-ray
Wonder if there may be a component of high-output failure in the setting of anemia
According to patient, weight has decreased about 7 pounds over the past week, initially had gained about 17 pounds
Despite this, denies any PND, orthopnea or shortness of breath
The above was reviewed with critical care nursing, sister at bedside, ED nursing
Will follow
TCCT 35 min
[2024-05-06] MEDS: TYLENOL 650 MG PO (17:08)
[2024-05-06] MEDS: ProAmatine 5 MG PO (18:37)
[2024-05-06] MEDS: STERILE WATER FOR INJECTION 10 ML IV (18:37)
[2024-05-06] MEDS: AZACTAM 1000 MG IV (18:37)
[2024-05-06] MEDS: FLAGYL 500 MG 100 IV (18:37)
--- NOTE | 2024-05-06 19:31 | PTCARENOTE ---
Rec'd patient from ED around 1800. Patient alert and oriented. [place]. NSR on tele monitor. +1 edema in b/l LE. Palpable pulses. Pulse ox 92-95% on RA. No BM. Per ED RN, no bleeding since admission. Purewick in place for urinary incontinence. Skin
pale. Old ileostomy site assessed. Scabbed, covered with 4x4 dressing. Scattered bruising throughout b/l arm. IVFs initiated through RAC INT. 2nd unit of PRBCS initiated through LAC INT with resource conservation specialist RN. VSS. Dr. Tenorio at bedside to assess
patient. Patient allowed clears overnight. Repeat Hgb to be drawn after administration of 2nd unit of PRBCs.
--- NOTE | 2024-05-06 20:00 | PTCARENOTE ---
Received report from jaime RN, assumed care of patient at 1900. Patient Ox3, drowsy but arouses to verbal stimuli with generalized weakness. SR with BBB on monitor, rates 60-70's, weak but palpable PP, +1 BLLE edema. On RA sats 94-97%,
respirations shallow and lung sounds diminished throughout. Purewick and pt's own pull up in place, patient DTV at this time, abdomen round, obese, and tender to palpation throughout. Patient admits to poor appetite recently but forcing self to eat,
denies need for nutrition c/s. Patient s/p ileostomy reversal earlier this month, wound to abdomen scabbed over and covered with 4x4 and tape, C/D/I. Assist well with turning, hygiene care provided. Second unit of PRBC's infusing via L PIV, follow
up H/H 2hrs post completion. NSS infusing via R PIV. BP's soft, cuff changed with better results, patient asymptomatic. Call desai within reach and instructed use, denies needs at this time, care ongoing.
[2024-05-06 23:40] LABS: Hematocrit 16.9 % (37.0-47.0); Hemoglobin 5.8 g/dL (12.0-16.0)
[2024-05-07] VITALS (25 sets, daily range): BP systolic 101–132; BP diastolic 46–62; BMI 24.5
--- NOTE | 2024-05-07 | PTCARENOTE ---
Patient finished second unit PRBC's, see TAR. Follow up Hg resulted at 5.8 Hct 16.9 - TIMBER BUYER made aware, orders for 1 unit PRBC. See TAR for blood transfusion documentation. No changes to physical assessment. Bladder scanned for 395, patient inc of
urine in pull-up, hygiene care provided. VSS, call desai within reach, care ongoing.
[2024-05-07] MEDS: STERILE WATER FOR INJECTION 10 ML IV ×3 (02:13→17:42)
[2024-05-07] MEDS: AZACTAM 1000 MG IV ×3 (02:13→17:42)
[2024-05-07] MEDS: FLAGYL 500 MG 100 IV ×3 (02:13→17:42)
--- NOTE | 2024-05-07 04:00 | PTCARENOTE ---
No changes to physical assessment. See TAR for transfusion documentation. Inc of urine and smear BM, hygiene care provided, bladder scanned for 187. Labs drawn and sent, post transfusion Hg resulted at 7.1 and Hct 20.8 - FRONT COUNTER CLERK made aware, order
placed for follow up H&H at 1200. VSS, call desai within reach, care ongoing.
[2024-05-07 04:50] LABS: % Basophils 0.4 % (0-2); % Eosinophils 0.1 % (0-6); % Immature Granulocytes 0.6 % (0-0.5); % Lymphocytes 3.8 % (20.5-51.1); % Monocytes 5.8 % (1.7-9.3); % Neutrophils 89.3 % (42.2-75.2); Absolute Immature Granulocytes 0.1 10^3/uL (0-0.05); Absolute Lymphocytes 0.3 10^3/uL (1.2-3.4); Absolute Monocytes 0.5 10^3/uL (0.1-0.6); Hematocrit 20.8 % (37.0-47.0); Hemoglobin 7.1 g/dL (12.0-16.0); Mean Corp Hgb Conc. 34.1 g/dL (33.0-37.0); Mean Corpuscular Hgb 30.6 pg (27.0-31.0); Mean Corpuscular Volume 89.7 fL (81.0-99.0); Mean Platelet Volume 10.8 fL (7.4-10.4); Nucleated Red Blood Cells % 0.3 %; Platelet Count 187 10^3/uL (130-400); Red Blood Cell Count 2.32 10^6/uL (4.20-5.40); Red Cell Dist. Width 16.7 % (11.5-14.5); White Blood Cell Count 7.9 10^3/uL (4.8-10.8)
[2024-05-07 05:15] LABS: ALT (SGPT) 12 U/L (0-35); AST (SGOT) 27 U/L (14-36); Albumin 2.5 g/dl (3.5-5.0); Alkaline Phosphatase 64 U/L (38-126); Blood Urea Nitrogen 21 mg/dl (7-17); Calcium 8.1 mg/dl (8.4-10.2); Carbon Dioxide 23 mmol/L (22-30); Chloride 106 mmol/L (98-107); Estimated Creatinine Clearance 38 ml/min; Glucose 97 mg/dl (70-99); Potassium 4.6 mmol/L (3.5-5.1); Sodium 138 mmol/L (135-145); Total Bilirubin 0.9 mg/dl (0.2-1.3); Total Protein 4.7 g/dl (6.3-8.2); eGFR 51.43
--- NOTE | 2024-05-07 07:41 | W.PN.INTV ---
Today's Communication / Plan
Recommendations
Remains n.p.o.
IV fluids changed to KVO. Follow for now pending n.p.o. status
+2 L
Continue antibiotics per colorectal surgery
Trend hemoglobin
Remains on Protonix
Mechanical DVT prophylaxis
Assessment
-
79-year-old female with history of atrial fibrillation on chronic Eliquis therapy, chronic kidney disease, colorectal cancer status post chemoradiation, resection, ileostomy, with recent reversal of ileostomy 04/15/2024. Now presents with abdominal
pain and bright red blood per rectum, found to be hypotensive, tachycardic, hemoglobin 4.8. Patient receiving IV fluids, prothrombin complex, blood products and admitted to ICU for further management 05/06/2024
Acute GI bleed
3 days plus of bright red blood per rectum, per my history
Hemorrhagic shock
Improved following IV fluids
S/p closure of ileostomy/port removal 04/15/2024
Incisional hernia repair, discharged 04/26/2024
Low-grade fever/chills
Acute onset abdominal pain
Chronic kidney disease
Baseline creatinine 1.2
Atrial fibrillation on Eliquis therapy
Amiodarone therapy
Planned ablation in the future
Valvular disease
Moderate MR
status post TAVR February 2024
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
Left bundle branch block
Coronary disease, per catheterization January 2024
Conditions present prior to admission
History of anemia, baseline hemoglobin 8.2
Colorectal cancer
Status post robotic resection,
chemoradiation completed April 2023
History of discoid lupus
Diagnosed age 18
Distant tobacco history
Plan/recommendations
At this time, patient is critically ill but appears to be stable
Received 3 units of blood
Recent brown bowel movement noted, heme positive
CT abdomen completed, per results, no evidence of active bleed. There is a fluid collection suspected to be postoperative
EKG with left bundle branch block, chronic
Recent echo 03/30/2024 with normal biventricular function, moderate MR, moderate to severe paravalvular aortic regurgitation
Moving forward
Continue with supportive care
Follow hemoglobin, transfuse as clinically indicated
Continue with IV fluids. Remains n.p.o. per
Colorectal surgery
Advance diet as able
No plans for endoscopy per GI
Remains on PPI therapy
Source thought to be secondary to recent surgery
Patient describes 3 days of blood per rectum. She does have a history of hemorrhoids
Patient has received Kcentra In ED
Last dose of Eliquis was earlier today, 10 mg per correspondence
Remains held for now
Patient developed fevers/rigors in the ED
Unclear whether this was infectious in nature. Cultures sent
Empiric antibiotics started, aztreonam/Flagyl provided
Per colorectal surgery, plan to discontinue 05/09 if no source identified
Outpatient records suggest significant weight gain, lower extremity swelling
Patient was due to see cardiology in the next few weeks
Follow clinically. No significant hypoxia at this time
Lung images on abdominal imaging do not suggest significant interstitial or pulm edema process
Chest x-ray unremarkable
troponin negative
Wonder if there may be a component of high-output failure in the setting of anemia
According to patient, weight has decreased about 7 pounds over the past week, initially had gained about 17 pounds
Despite this, denies any PND, orthopnea or shortness of breath
Change IV fluids to KVO for now and follow
The above was reviewed with critical care nursing, respiratory care, pharmacy
TCCT 31 min
Subjective Dataa
Subjective Data
Date of Service:
Date of Service: May 07, 2024
Subjective:
Patient is feeling improved. She denies shortness of breath, nausea, mendoza pain. She does complain of belching and is passing gas. Received 3 units of blood.
Objective Data
Data Reviewed
Vital Signs / I&O / Oxygen:
Vital Signs
Temp Pulse Resp BP Pulse Ox
99.0 F 65 16 124/51 96
05/07/24 07:00 05/07/24 06:00 05/07/24 06:00 05/07/24 06:00 05/07/24 06:00
Intake and Output
05/06/24 05/07/24 05/08/24
06:59 06:59 06:59
Intake Total 2109
Balance 2109
SaO2 96
Physical Exam
General: Comfortable
HEENT: Normocephalic, Anicteric and Other (Mild pallorous conjunctiva)
Respiratory: Wheeze (n), Crackles (n), Rhonchi (n), Non-Labored Respirations and Stridor (n)
GI: Soft, Non Distended and Non Tender
Neurology: Awake, Alert and No Motor Deficits (Generally weak)
Skin: Cyanosis (n), Jaundice (n), Rash (n) and Other (Mild pallor)
Labs/Micro/Reports
Lab Data
05/07/24 04:21
Laboratory Results
05/06/24
13:55
PT 23.9 H
INR 2.11
APTT 43.8 H
[2024-05-07] MEDS: NSS 1000 IV (08:10)
[2024-05-07] MEDS: ProAmatine 5 MG PO ×3 (08:23→17:42)
[2024-05-07] MEDS: PROTONIX IV 40 MG IV (08:23)
[2024-05-07] MEDS: PACERONE 200 MG PO (08:23)
--- NOTE | 2024-05-07 08:30 | PTCARENOTE ---
Assumed care of patient at 0700. Patient alert and oriented. [place]. NSR with BBB on tele monitor. +1 edema in b/l LE. Pulse ox 96% on RA. Crackles in b/l bases. +BS (hyperactive). Abdomen tender and distended. Incontinent of b&b. Incontinence care as
needed. Stools brown, gelatinous. Heme+. C/o gas pains. +Flatus. Old ileostomy site intact, scabbed. Repeat H&H @ 1200.
--- NOTE | 2024-05-07 08:35 | CON.GI ---
Addendum entered and electronically signed by Tami Peterson MD 05/07/24 15:49:
I saw and examined the patient.
The [employer]'s note was reviewed and I agree with the note.
-rectal bleeding/ symptomatic acute anemia s/p Kcentra in ED. s/p 3 unit PRBC given. CTA- neg. bleeding currently resolved
-hx rectal CA prior neoadjuvant therapy and lower anterior resection with ileostomy in November 2023 then went for reversal 04/15/24 with repair of incision hernia and removal of port.
-afib on Eliquis prior to admission
- with prior TAVR
PLAN:
Stools brown as per nursing.
Continue monitor H&H
Diet / further mx per colorectal surgery
Will hold off on EGD or colonoscopy from GI standpoint
if recurrent bleeding will recommend bleeding scan
will s/o . call us back if any questions
cont PPI daily
trend hbg transfuse as needed
Eliquis hold
Original Note:
Consultation
-
Date/Time Consultation Requested: 05/06/24 1800
Date/Time Consultation Performed: 05/07/24 0830
Requesting Provider: Enzo Amaral MD
Performing Provider: TIGIST Reed, Tami Orr MD
Reason for Consultation: GI bleed
Medical History
Chief Complaint / HPI
Chief Complaint: anemia
History of Present Illness:
Pt is a 79yo with hx afib on Elqiuis, with prior TAVR, locally advanced rectal CA with severe anemia in 2022 with prior neoadjuvant therapy and lower anterior resection with ileostomy in November 2023 then went for reversal 04/15/24 with repair of
incision hernia and removal of port. She was discharged 04/26 and now returns with rectal bleeding with noted hbg 4.8 on admission with drop from 8.1 on 04/25. At this time patient admits to passing about 3-4 bloody stools since Saturday red in
color. She did have mild chills prior to admission with stools oatmeal consistency with looser stools since yesterday. She denies any recent NSAID use and has been on Eliquis since last admission. She denies dysphagia, GERD, nausea, vomiting,
abdominal pain,constipation or black stools. Stool have been loose since surgery. + 17 lb wt gain with prior admission. 04/07 last scopes Sigmoidoscopy to sigmoid note normal. 10/2023- discontinuous area of bleeding ulcerated mucosa mid rectum
treated with APC. 09/2023- flex blood mid rectum malignant tumor mid rectum s/p APC. CTA neg on admission but did note similar large cystic lesion left adnexal seen in past with concern for ovarian neoplasm, AAA 3.5 cm. s/p Kcentra given in ER.
Past Medical History
Past Medical History: Arrhythmias (afib with Eliquis ), Cancer (rectal cancer ), Valvular Disease (aortic stenosis ) and Other (PNA, measles chicken pox, lupus, hiatal hernia )
Past Surgical History: Appendectomy, Cardiac (TAVR), Gynecological (ovarian cyst) and Other (lower anterior resection with ileostomy then reversal 04/15 with repair of incision hernia and removal of port)
Social History
Tobacco: Former Smoker
Alcohol: Occasional (no recent ETOH use with medical issues )
Drug: None
Living: Alone
Employment: Retired
Family History
Family History: Other (no family hx colon CA or polyps)
Allergies / Home Medications
Allergy/AdvReac Type Severity Reaction Status Date / Time
metoprolol Allergy Very low Verified 04/15/24 16:03
BP with
even low
doses of
metoprolol
Penicillins Allergy Hives Verified 04/15/24 16:03
�Medication �Instructions �Recorded
cyanocobalamin (vitamin B-12) 1,000 mcg PO DAILY@1300 Supplement 09/25/23
1,000 mcg tablet (Vitamin B-12) ##0
vitamin B complex 1 tab PO DAILY@1300 Supplement 09/25/23
ascorbic acid (vitamin C) 1,000 mg 1,000 mg PO DAILY@1300 Supplement 02/04/24
tablet (Vitamin C)
biotin 10,000 mcg capsule 10,000 mcg PO DAILY@1300 Supplement 02/04/24
calcium 333 mg-D3 8.3 2 cap PO DAILY Supplement 02/04/24
mcg-magnesium ox 116.7
rp-E-Z-minerals capsule (BoneUp)
methimazole 10 mg tablet 5 mg PO DAILY Thyroid 02/04/24
quercetin 500 mg capsule 500 mg PO DAILY@1300 Supplement 02/04/24
collagen,hydrolysate 500 mg-biotin 2 cap PO DAILY@1300 04/10/24
800 mcg-ascorbic acid 50 mg
capsule (Collagen 1500 Plus C)
aspirin 81 mg capsule 81 mg PO DAILY 04/15/24
acetaminophen 325 mg tablet 650 mg (2 x 325 mg) PO Q4HPRN PRN 04/26/24
mild pain #1 tab
amiodarone 200 mg tablet 200 mg PO DAILY Arrhythmia #0 tabs 04/26/24
apixaban 5 mg tablet (Eliquis) 5 mg PO BID Blood clot 04/26/24
prevention/tx #0 tabs
oxycodone 5 mg tablet 5 mg PO Q4HPRN PRN 04/26/24
breakthrough/severe pain #15 tabs
calcium 333 mg-D3 8.3 1 cap PO HS 05/06/24
mcg-magnesium ox 116.7
yq-E-L-minerals capsule (BoneUp)
furosemide 20 mg tablet 20 mg PO Q48H 05/06/24
midodrine 5 mg tablet 5 mg PO TID Blood pressure 05/06/24
potassium chloride 10 mEq 10 meq PO UD 05/06/24
tablet,extended release
therapeutic multivitamin 1 tab PO DAILY 05/06/24
Review of Systems
-
History Source: Patient and Family
Constitutional: Reports Weight Gain
EENT: Reports No Symptoms
Respiratory: Reports No Symptoms
Cardiac: Reports No Symptoms
Abdomen/GI: Reports Diarrhea and Bloody Stools
: Reports No Symptoms
Musculoskeletal: Reports Other (uses walker for ambulation)
Skin: Reports No Symptoms
Neurological: Reports Weakness
Endocrine: Reports No Symptoms
Hematologic/Lymphatic: Reports Bleeding
Vital Signs
Temp Pulse Resp BP Pulse Ox
99.0 F 67 17 113/59 96
05/07/24 07:00 05/07/24 08:00 05/07/24 08:00 05/07/24 08:00 05/07/24 08:00
Physical Exam
Exam
General: Well Developed, Well Nourished and No Apparent Distress
HEENT: Normocephalic and Anicteric
Respiratory: Clear
Cardiac: Regular Rhythm
GI: Soft, Non Tender and Non Distended
Rectal: Brown (loose stool -- oatmeal like no visible blood but heme + )
Musculoskeletal: No Clubbing and No Cyanosis
Skin: Warm and Dry
Neuro: Awake, Alert and AO x 3
Psych: Calm
Results
WBC 7.9 10^3/uL (4.8-10.8) 05/07/24 04:21
Hgb 7.1 g/dL (12.0-16.0) L D 05/07/24 04:21
Hct 20.8 % (37.0-47.0) L* 05/07/24 04:21
MCV 89.7 fL (81.0-99.0) 05/07/24 04:21
Plt Count 187 10^3/uL (130-400) D 05/07/24 04:21
Absolute Neuts (auto) 7.0 10^3/uL (1.4-6.5) H 05/07/24 04:21
PT 23.9 Sec (11.4-14.6) H 05/06/24 13:55
INR 2.11 05/06/24 13:55
APTT 43.8 Sec (23.4-35.0) H 05/06/24 13:55
Sodium 138 mmol/L (135-145) 05/07/24 04:21
Potassium 4.6 mmol/L (3.5-5.1) 05/07/24 04:21
Chloride 106 mmol/L (98-107) 05/07/24 04:21
Carbon Dioxide 23 mmol/L (22-30) 05/07/24 04:21
BUN 21 mg/dl (7-17) H 05/07/24 04:21
Creatinine 1.1 mg/dL (0.6-1.0) H 05/07/24 04:21
Calcium 8.1 mg/dl (8.4-10.2) L 05/07/24 04:21
Total Bilirubin 0.9 mg/dl (0.2-1.3) 05/07/24 04:21
AST 27 U/L (14-36) 05/07/24 04:21
ALT 12 U/L (0-35) 05/07/24 04:21
Alkaline Phosphatase 64 U/L (38-126) 05/07/24 04:21
Lipase 144 U/L (23-300) 05/06/24 13:55
Diagnostic Image Results:
05/06/24 CTA
No evidence of acute GI bleed. Postoperative changes of prior partial bowel resection. There is a 4.8 x 3.0 cm slightly ill-defined likely developing collection in the presacral space which may be a postoperative collection.
Similar appearance of the large cystic lesion extending from the left adnexa into the left retroperitoneal/anterior pararenal space with associated mass effect. There is apparent enhancement along the anterior inferior aspect of the lesion
suspicious for cystic ovarian neoplasm.
Bilateral adrenal lesions, similar in appearance to prior.
Infrarenal abdominal aortic aneurysm which is unchanged from prior and measuring up to 3.5 cm.
There is circumferential wall beginning of the urinary bladder which may be secondary to underdistention however can be seen with cystitis.
Prior GI Procedures:
10/2023- flex golden discontinuous area of bleeding ulcerated mucosa mid rectum treated with APC.
09/2023- flex golden blood mid rectum malignant tumor mid rectum s/p APC
02/2023- colonsocopy salguti to terminal ileum - Preparation of the colon was poor.
- Palpable rectal mass found on digital rectal exam.
- The examined portion of the ileum was normal.
- Stool in the descending colon, at the splenic
flexure, in the transverse colon and at the hepatic
flexure.
- Malignant partially obstructing tumor in the distal
rectum. Biopsied.
bx intramucosal carcinoma
- surg path invasive adenocarcinoma 117 nodes positive margins neg
02/2023 EGD Ahmad- small HH, normal stomach , duodenitis
Assessment / Plan
-
Pt is a 79yo with hx afib on Elqi, with prior TAVR,locally advanced rectal CA with severe anemia in 2022 with prior neoadjuvant therapy and lower anterior resection with ileostomy in November 2023 then went for reversal 04/15/24 with repair of
incision hernia and removal of port. She was discharged 04/26 and now returns with rectal bleeding with noted hbg 4.8 on admission with drop from 8.1 on 04/25. At this time patient admits to passing about 3-4 bloody stools since Saturday red in
color. She did have mild chills prior to admission with stools oatmeal consistency with looser stools. She denies any recent NSAID use and has been on Eliquis since last admission. She denies dysphagia, GERD, nausea, vomiting, abdominal
pain,constipation or black stools. Stool have been loose since surgery. + 17 lb wt gain with prior admission. 04/07 last scopes Sigmoidoscopy to sigmoid note normal. CTA neg on admission but did note similar large cystic lesion left adnexal
seen in past with concern for ovarian neoplasm, AAA 3.5 cm. s/p Kcentra given in ER.
-rectal bleeding
-symptomatic anemia
-rigor in ER
-hx rectal CA prior neoadjuvant therapy and lower anterior resection with ileostomy in November 2023 then went for reversal 04/15/24 with repair of incision hernia and removal of port.
-large cystic lesion left adnexal noted on CTA
-afib on Eliquis prior to admission
- with prior TAVR
PLAN:
GI bleeding related to recent surgical intervention vs other
less likely upper source with red color minimal BUN elevation on admission to 23
s/p Kcentra in ER
Bleeding now improved and stools brown
reviewed with colorectal NPO for now - ok for GI for clears if hbg and bleeding remains stable
hold on scopes
cont PPI daily
trend hbg transfuse as needed
Eliquis hold
-
-
Thank you for consultation and allowing me to participate in the patient's care. Please call the rn neonatal GI physician during the after hours with any questions or concerns.
--- NOTE | 2024-05-07 08:46 | W.PN.CRS1 ---
Today's Communication / Plan
-
monitor for bleeding
trend cbc
no plans for surgery
transfuse prn
Assessment/Plan
-
Assessment: 79-year-old female with a recent iliac reversal presents to the ER after having abdominal pain and episodes of rectal bleeding at home found to have a hemoglobin of 0.8, Cardiac, and blood pressure of 50s over 30s.
05/06- K centra, 2 units PRBCs
05/07- hgb 7.1, 1 more PRBCs, 3 units PRBCs total.
Plan:
-Continue to trend hemoglobin.
-No plans for surgery at this time.
-Monitor and record bowel movements. No bloody bowel movements since admission.
-Hold anticoagulation.
-Keep on NPO with sips of water today.
-On azactam/flagyl.
Subjective Data
Subjective Data
Date of Service: May 07, 2024
Patient states she has no further bleeding since admission. She has gas pain. She has loose stools with a 'lot' of flatus. She denies nausea or vomiting.
Objective Data
-
Vital Signs
Temp Pulse Resp BP Pulse Ox
99.0 F 66 17 113/59 96
05/07/24 07:00 05/07/24 08:23 05/07/24 08:00 05/07/24 08:23 05/07/24 08:00
Intake & Output
05/06/24 05/07/24 05/08/24
06:59 06:59 06:59
Intake Total 2109 200 / 200
Balance 2109 200 / 200
Intake:
Oral fluids 60 / 60
IV fluids (Total) 1200 / 1300 200 / 200
Nss 1,000 ml @ 100 mls/hr IV . 1200 / 1300 200 / 200
Q10H RONAK Rx#:[id number]
IV piggybacks 100 / 100
Blood Product Amount Infused ( 750 / 750
mL)
Packed Rbc Leukoreduced Unit 250 / 250
[id number]
Packed Rbc Leukoreduced Unit 250 / 250
[id number]
Packed Rbc Leukoreduced Unit 250 / 250
[id number]
Other:
How many times incontinent 1
SATURATED amount urine
Lab Results
05/07/24 04:21
Physical Exam
-
General: No Acute Distress and AOx3
Abdomen: Soft, Distended (mild) and Tender (near umbilicus and LLQ - mild/moderate)
[2024-05-07] MEDS: ROXICODONE 5 MG PO ×3 (11:24→22:27)
--- NOTE | 2024-05-07 11:30 | PTCARENOTE ---
No changes in assessment. VSS. Repeat H&H sent.
--- NOTE | 2024-05-07 11:32 | W.PN.HOSP.TC ---
Addendum entered and electronically signed by Daron Fernando MD 05/07/24 22:24:
Attending Addendum-
I saw and evaluated the patient. I reviewed the resident�s note and agree with findings and plan as documented in the resident�s note. Sub: Denies melena hematochezia. No N/V. complains of gas pain.. 'I feel pretty good, Im a strong pollock' Full
12 point ROS reviewed and negative except as documented Exam: Vitals reviewed in chart GEN-NAd heart RRR lungs clear abd incision CDI NT ND pos BD LE no edema
# Acute GIB / Hemorrhagic Shock
- s/p surgery
- was on on Eliquis and ASA
- s/p PCC x 1
- improved SBP s/p NS 1 L Bolus
- s/p PRBC transfusion x 3
- no signs of active bleeding
- cbc q 12
- GI- hold off on scopes
- CTA 05/06-No evidence of acute GI bleed.
- repeat labs in am
# H/O Rectal cancer
- received total neoadjuvant therapy and ultimately underwent a resection with a temporary ostomy
- S/p reversal of ileostomy on 04/15/2024
- CT 05/06-4.8 x 3.0 cm slightly ill-defined likely developing collection in the presacral space which may be a postoperative collection.
large cystic lesion extending from the left adnexa into the left retroperitoneal/anterior pararenal space with associated mass effect. suspicious for cystic ovarian neoplasm.
- CRS on board appreciate input
# Active rigors / not septic
- HX PCN allergy
- BCx sent
- DC Azactam and IV Flagyl in am
# CKD 3a
- cr @ baseline
- avoid NT agents
- repeat BMP in am
# Paroxysmal AFib
- Ablation is planned
- c/w Amiodarone
- Hold Eliquis/ASA due GIB
- d/w GI when to restart
#
- s/p TAVR
# Hyperthyroidism
- cont methimazole
DVT Px: SCD
Full code
Time spent coordinating care, review of plan of care with resident, personally reviewed records in EMR, med rec, consults, notes, labs, radiology, d/w nursing and CC � 59 mins
Original Note:
Today's Communication/Plan
-
Colorectal consult
GI consult
Downgrade from ICU
Monitor hemoglobin
Continue IV fluids
Continue IV antibiotics
Assessment / Plan
Assessment / Plan
Impression: 79-year-old female past history of A-fib on Eliquis, CKD, colon cancer status post resection and chemoradiation, ileostomy with recent reversal of ileostomy. Presents with abdominal pain and bright red blood per rectum, found to be
hypotensive tachycardic with hemoglobin of 4.8. She received 3 units packed red blood cells and was admitted for further management.
Plan:
#Acute GI bleed
#Hemorrhagic shock
3 days bright red blood per rectum
Currently having brown, nonbloody stools
Hypotensive on presentation to ED
Improved status post IV fluids and blood products
Received 3 units packed red blood cells and prothrombin complex
Continue IV fluids
Monitor hemoglobin every 12 with daily CBCs
Hold anticoagulation
Colorectal consulted and following
GI consulted and following
Recommendations greatly appreciated
Continue n.p.o. with sips
Pain regiment Tylenol and oxycodone
Bowel regiment as needed for constipation
Simethicone as needed for gas pain
#Low-grade fever/chills
Patient started on empiric IV aztreonam every 8 hours and metronidazole IV every 8 hours
Will continue empirically for total of 3 days, if no source is found we will discontinue then per colorectal
#Chronic kidney disease
Baseline creatinine 1.2
Creatinine 1.1
Daily CMP
#Atrial fibrillation on Eliquis
Continue amiodarone
Apparently ablation planned in future
Telemetry
#Valvular disease
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
Telemetry
DVT prophylaxis: Holding for now
Diet: N.p.o.
CODE STATUS Limited DNR
Anticipated Discharge: > 48 hours
Subjective/Interval History
-
Date of Service: May 07, 2024
Patient received 3 units packed red blood cells overnight
Objective Data
-
Labs:
Laboratory Results
05/06/24 05/07/24 05/07/24
23:13 04:21 12:00
WBC 7.9
Hgb 5.8 L* D 7.1 L D Pending
Hct 16.9 L* 20.8 L* Pending
Plt Count 187 D
Sodium 138
Potassium 4.6
Chloride 106
Carbon Dioxide 23
BUN 21 H
Creatinine 1.1 H
Glucose 97
Calcium 8.1 L
Total Bilirubin 0.9
AST 27
ALT 12
Alkaline Phosphatase 64
Vital Signs:
Vital Signs
Temp Pulse Resp BP Pulse Ox
98.1 F 60 18 125/50 95
05/07/24 11:00 05/07/24 11:00 05/07/24 11:00 05/07/24 11:00 05/07/24 11:00
I&O
05/06/24 05/07/24 05/08/24
06:59 06:59 06:59
Intake Total 2109 380 / 380
Balance 2109 380 / 380
Review of Systems
-
History Source: Patient
Constitutional: Reports Fatigue
Respiratory: Reports No Symptoms
Cardiac: Reports No Symptoms
Abdomen/GI: Reports Abdominal Pain (Diffuse abdominal tenderness) and Bloody Stools
Physical Exam
-
General: Well Developed and Comfortable
Respiratory: Crackles (Crackles at base of lungs)
Cardiac: Regular Rhythm and S1/S2
GI: Soft, Nondistended and Tender
Musculoskeletal: No Edema
Skin: Warm and Dry
Neuro: Awake, Alert, Oriented and AO x 3
Psych: Calm and Intact Judgement/Insight
Data Reviewed
-
CT Scan: Report Reviewed by me and Discussed with Physician
Labs: Labs Reviewed by me and Discussed with Physician
[2024-05-07 12:07] LABS: Hematocrit 21.6 % (37.0-47.0); Hemoglobin 7.4 g/dL (12.0-16.0)
--- NOTE | 2024-05-07 12:18 | PTCARENOTE ---
Repeat H&H- Hgb 7.4/Hct 21.6.
--- NOTE | 2024-05-07 16:02 | PTCARENOTE ---
Patient downgraded to telemetry level.
--- NOTE | 2024-05-07 16:41 | CM ---
Chart reviewed and patient was recently discharge from [facility], patient resides in a 3rd floor apartment, patient is independent with adl's and ambulation, no dme, had [facility] visiting nurses in past.
PCP: Willie Ryan
Pharmacy [facility] in [place]
Plan: to follow with patient progress.
[2024-05-07] MEDS: MYLICON 80 MG PO ×2 (17:57→22:27)
--- NOTE | 2024-05-07 20:06 | PTCARENOTE ---
Pt received from ICU to [facility]-. Pt oriented to room and call desai.
[2024-05-08] MEDS: FLAGYL 500 MG 100 IV (03:21)
[2024-05-08] MEDS: STERILE WATER FOR INJECTION 10 ML IV (03:22)
[2024-05-08] MEDS: AZACTAM 1000 MG IV (03:22)
[2024-05-08 03:33] VITALS: BP 115/50
[2024-05-08] MEDS: ROXICODONE 5 MG PO ×3 (03:33→18:39)
[2024-05-08] MEDS: MYLICON 80 MG PO ×3 (03:33→18:38)
[2024-05-08 05:34] VITALS: BMI 25.1
[2024-05-08 07:16] VITALS: BP 114/48
[2024-05-08 08:11] LABS: Hematocrit 21.2 % (37.0-47.0); Hemoglobin 7.2 g/dL (12.0-16.0); Mean Corpuscular Hgb 30.6 pg (27.0-31.0); Mean Corpuscular Volume 90.2 fL (81.0-99.0); Mean Platelet Volume 10.9 fL (7.4-10.4); Platelet Count 198 10^3/uL (130-400); Red Blood Cell Count 2.35 10^6/uL (4.20-5.40); Red Cell Dist. Width 17.1 % (11.5-14.5)
[2024-05-08 08:27] LABS: ALT (SGPT) 11 U/L (0-35); AST (SGOT) 20 U/L (14-36); Albumin 2.4 g/dl (3.5-5.0); Alkaline Phosphatase 74 U/L (38-126); Blood Urea Nitrogen 17 mg/dl (7-17); Calcium 8.1 mg/dl (8.4-10.2); Carbon Dioxide 23 mmol/L (22-30); Chloride 106 mmol/L (98-107); Estimated Creatinine Clearance 38 ml/min; Glucose 77 mg/dl (70-99); Potassium 3.8 mmol/L (3.5-5.1); Sodium 138 mmol/L (135-145); Total Bilirubin 0.4 mg/dl (0.2-1.3); Total Protein 4.6 g/dl (6.3-8.2); eGFR 51.43
--- NOTE | 2024-05-08 09:27 | W.PN.HOSP.TC ---
Addendum entered and electronically signed by Daron Fernando MD 05/08/24 21:40:
Attending Addendum-
I saw and evaluated the patient. I reviewed the resident�s note and agree with findings and plan as documented in the resident�s note. Sub: Denies melena hematochezia. No N/V. complains of abd distention and bloating. Full 12 point ROS reviewed and
negative except as documented Exam: Vitals reviewed in chart GEN-NAD heart RRR SM @ apex lungs clear abd incision CDI distended high pitched BS LE no edema
# Acute GIB / Hemorrhagic Shock
- resolved hb improving to 7.8
- s/p recent ileostomy reversal
- was on on Eliquis and ASA
- s/p PCC/K centra x 1
- s/p PRBC transfusion x 3
- cbc q 12
- GI- hold off on scopes
- CTA 05/06-No evidence of acute GI bleed.
- repeat labs in am
# H/O Rectal cancer
- received total neoadjuvant therapy and ultimately underwent a resection with a temporary ostomy
- S/p reversal of ileostomy on 04/15/2024
- CT 05/06-4.8 x 3.0 cm slightly ill-defined likely developing collection in the presacral space which may be a postoperative collection.
large cystic lesion extending from the left adnexa into the left retroperitoneal/anterior pararenal space with associated mass effect. suspicious for cystic ovarian neoplasm.
- CRS on board appreciate input
# Ileus
- cont NPO with sips
- repeat abd x ray- improving ileus
- for repeat CT today per surg
- appreciate CRS input
# CKD 3a
- cr @ baseline
- avoid NT agents
- repeat BMP in am
# Chronic HFpEF
- recent echo ef 65-70%
- monitor daily weights/i and O
- lasix prn
# Hypotension
- improved
- due to hypovolemia
- start midodrine
# Paroxysmal AFib
- Ablation planned as OP
- c/w Amiodarone
- Hold Eliquis/ASA due GIB
- d/w GI when to restart
#
- s/p TAVR
# Hyperthyroidism
- cont methimazole
DVT Px: SCD
Full code
Time spent coordinating care, review of plan of care with resident, personally reviewed records in EMR, med rec, consults, notes, labs, radiology, d/w nursing and CRS � 55 mins
Original Note:
Today's Communication/Plan
-
Abdominal x-ray
Initiate antispasmodic
Monitor hemoglobin
Assessment / Plan
Assessment / Plan
Impression: 79-year-old female past history of A-fib on Eliquis, CKD, colon cancer status post resection and chemoradiation, ileostomy with recent reversal of ileostomy. Presents with abdominal pain and bright red blood per rectum, found to be
hypotensive tachycardic with hemoglobin of 4.8. She received 3 units packed red blood cells and was admitted for further management.
Plan:
#Acute GI bleed
#Hemorrhagic shock
unable to determine if related to eliquis
3 days bright red blood per rectum
Currently having brown, nonbloody stools
Hypotensive on presentation to ED
Improved status post IV fluids and blood products
Received 3 units packed red blood cells and prothrombin complex
Continue IV fluids
Monitor hemoglobin every 12 with daily CBCs
Hold anticoagulation
Colorectal consulted and following
Planning abdominal x-ray
Planning ct abd
Recommendations greatly appreciated
GI has signed off
Continue n.p.o. with sips
Pain regiment Tylenol and oxycodone
Bowel regiment as needed for constipation
Simethicone as needed for gas pain
As needed antispasmodic for cramping
#Fluid retention
Crackles on exam, swelling noted in lower extremities
Patient receiving IV fluids due to shock, currently gentle at 40 mL/h
Takes furosemide 20 every 48 hours at home
will hold off for now as pt was recently in shock and pressures are soft
#History of rectal cancer
Status post resection, neoadjuvant chemoradiation with temporary ostomy
CT demonstrated 4 x 8 x 3 cm ill-defined collection in presacral space, per colorectal this is likely postoperative collection
Large cystic lesion was also seen left adnexa, per colorectal this was a renal cyst which is benign and has been worked up previously
Colorectal continues to follow patient
#Low-grade fever/chills
Patient started on empiric IV aztreonam every 8 hours and metronidazole IV every 8 hours
Chills have resolved
Discontinue IV antibiotics
#Chronic kidney disease
Baseline creatinine 1.2
Creatinine 1.1, at baseline
Daily CMP
#Atrial fibrillation on Eliquis
Continue amiodarone
Currently holding Eliquis due to GI bleed
Apparently ablation planned in future
Telemetry
#Valvular disease
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
Telemetry
#Hyperthyroidism
Continue methimazole
DVT prophylaxis: Holding for now
Diet: N.p.o.
CODE STATUS Limited DNR
Anticipated Discharge: > 48 hours
Subjective/Interval History
-
Date of Service: May 08, 2024
Per nursing patient anxious overnight
Patient very talkative on exam, pleasant, confided slight mistrust of medical system due to previous experiences
Objective Data
-
Labs:
Laboratory Results
05/08/24
06:31
WBC 7.0
Hgb 7.2 L
Hct 21.2 L
Plt Count 198
Sodium 138
Potassium 3.8
Chloride 106
Carbon Dioxide 23
BUN 17
Creatinine 1.1 H
Glucose 77
Calcium 8.1 L
Total Bilirubin 0.4
AST 20
ALT 11
Alkaline Phosphatase 74
Vital Signs:
Vital Signs
Temp Pulse Resp BP Pulse Ox
98.7 F 68 14 114/48 97
05/08/24 07:16 05/08/24 07:16 05/08/24 07:16 05/08/24 07:16 05/08/24 07:16
I&O
05/07/24 05/08/24 05/09/24
06:59 06:59 06:59
Intake Total 2109 1640 / 1640
Balance 2109 1640 / 1640
Review of Systems
-
History Source: Patient
Constitutional: Reports No Symptoms
Respiratory: Reports No Symptoms
Cardiac: Reports No Symptoms
Abdomen/GI: Reports Abdominal Pain, Pain and Bloated; Denies Nausea, Vomiting, Diarrhea, Bloody Stools or Hematemesis
Physical Exam
-
Respiratory: Crackles
Cardiac: Regular Rhythm and S1/S2
GI: Soft, Tender (Tender in lower quadrant), Distended and Other (Postop ostomy reversal on abdomen)
Musculoskeletal: Edema, Right Lower Extrem and Edema, Left Lower Extrem
Skin: Warm and Dry
Neuro: Awake, Alert, Oriented and AO x 3
Psych: Calm and Intact Judgement/Insight
Data Reviewed
-
Labs: Labs Reviewed by me and Discussed with Physician
[2024-05-08] MEDS: PROTONIX IV 40 MG IV (09:48)
[2024-05-08] MEDS: ProAmatine 5 MG PO ×3 (09:49→18:40)
[2024-05-08] MEDS: PACERONE 200 MG PO (09:49)
--- NOTE | 2024-05-08 10:10 | PN.CDI ---
CDI
- -
CDI:
Physician Documentation Request
Admit Date: 05/06/24 16:20
Dear Doctor uMmtaz,
Patient admitted with GI bleed.
05/07 Photographer Aerial PN: 'Patient has received Kcentra In ED, Last dose of Eliquis was earlier today, 10 mg per correspondence, Remains held for now'
05/07 Hospitalist PN: 'Acute GIB / Hemorrhagic Shock - s/p surgery - was on on Eliquis and ASA'
Please clarify the relationship between these conditions:
Yes, GI bleed is related to/associated with/exacerbated by Eliquis
No, GI bleed is not related to/associated with/exacerbated by Eliquis
Unable to determine
Use of terms such as suspected, likely, concern for, or probable (associated with a specific diagnosis that is being evaluated, monitored, or treated as if it exists) are acceptable and can be coded in the inpatient setting, when documented at the
time of discharge.
Thank you,
Susanne Shirley RN, BSN
CDI Specialist
Available via [place] text
Please use your independent medical judgment in providing your response.
--- NOTE | 2024-05-08 11:24 | W.PN.CRS1 ---
Today's Communication / Plan
-
Abdominal x-rays
Assessment/Plan
-
Assessment: 79-year-old female with a recent iliac reversal presents to the ER after having abdominal pain and episodes of rectal bleeding at home found to have a hemoglobin of 0.8, Cardiac, and blood pressure of 50s over 30s.
05/06- K centra, 2 units PRBCs
05/07- hgb 7.1, 1 more PRBCs, 3 units PRBCs total.
Plan:
-Continue to trend hemoglobin.
-No plans for surgery a t this time.
-Monitor and record bowel movements. No bloody bowel movements since admission.
-Hold anticoagulation.
-Keep on NPO with sips of water today given bloating.
-On azactam/flagyl.
-Abdominal x-rays ordered
Subjective Data
Subjective Data
Date of Service: May 08, 2024
Patient states she feels bloated. She has right upper quadrant pain. She has no nausea or vomiting. She still has flatus but not as much as yesterday.
Objective Data
-
Vital Signs
Temp Pulse Resp BP Pulse Ox
98.7 F 68 14 114/48 97
05/08/24 07:16 05/08/24 07:16 05/08/24 07:16 05/08/24 07:16 05/08/24 07:16
Intake & Output
05/07/24 05/08/24 05/09/24
06:59 06:59 06:59
Intake Total 2109 / 0 1640 / 1640
Balance 2109 / 0 1640 / 1640
Intake:
Oral fluids 60 / 60 300 / 300
IV fluids (Total) 1200 / 1300 1140 / 1140
Nss 1,000 ml @ 40 mls/hr IV . 1200 / 1300 700 / 700
Q24H [facility] Rx#:[id number]
IV piggybacks 100 / 100 200 / 200
Blood Product Amount Infused ( 750 / 750
mL)
Packed Rbc Leukoreduced Unit 250 / 250
[id number]
Packed Rbc Leukoreduced Unit 250 / 250
[id number]
Packed Rbc Leukoreduced Unit 250 / 250
[id number]
Other:
How many times incontinent 1
SMALL amount urine
How many times incontinent 2
MODERATE amount urine
How many times incontinent 1 1
SATURATED amount urine
Lab Results
05/08/24 06:31
05/08/24 06:31
Physical Exam
-
General: No Acute Distress
Abdomen: Distended and Tender (Right upper quadrant)
Incision: Clear, Dry, Intact
[2024-05-08 11:32] VITALS: BP 113/53
[2024-05-08] MEDS: NSS IV (11:45)
[2024-05-08] MEDS: OMNIPAQUE 50 ML PO (13:11)
[2024-05-08 15:16] VITALS: BP 121/54
[2024-05-08 15:55] LABS: Hematocrit 23.1 % (37.0-47.0); Hemoglobin 7.8 g/dL (12.0-16.0)
--- NOTE | 2024-05-08 17:13 | PTCARENOTE ---
pt had a very very very small amount of stool when i changed her .
[2024-05-08] MEDS: BENTYL 10 MG PO (18:38)
[2024-05-08 19:26] VITALS: BP 126/58
[2024-05-08 23:18] VITALS: BP 117/55
[2024-05-09] VITALS (8 sets, daily range): BP systolic 94–140; BP diastolic 49–59; BMI 25.0
[2024-05-09] MEDS: ROXICODONE 5 MG PO ×3 (04:30→14:47)
[2024-05-09] MEDS: MYLICON 80 MG PO ×4 (04:31→21:29)
[2024-05-09 06:23] LABS: Hematocrit 20.6 % (37.0-47.0); Mean Corpuscular Volume 91.2 fL (81.0-99.0); Mean Platelet Volume 10.3 fL (7.4-10.4); Platelet Count 210 10^3/uL (130-400); Red Blood Cell Count 2.26 10^6/uL (4.20-5.40); Red Cell Dist. Width 16.3 % (11.5-14.5); White Blood Cell Count 6.4 10^3/uL (4.8-10.8)
[2024-05-09 06:27] LABS: ALT (SGPT) 11 U/L (0-35); AST (SGOT) 18 U/L (14-36); Albumin 2.2 g/dl (3.5-5.0); Alkaline Phosphatase 61 U/L (38-126); Blood Urea Nitrogen 13 mg/dl (7-17); Carbon Dioxide 22 mmol/L (22-30); Chloride 106 mmol/L (98-107); Estimated Creatinine Clearance 38 ml/min; Glucose 87 mg/dl (70-99); Potassium 3.3 mmol/L (3.5-5.1); Sodium 137 mmol/L (135-145); Total Bilirubin 0.4 mg/dl (0.2-1.3); Total Protein 4.6 g/dl (6.3-8.2); eGFR 51.43
[2024-05-09] MEDS: NSS (PRESERVATIVE FREE) 10 ML IV (08:24)
[2024-05-09] MEDS: PACERONE 200 MG PO (08:25)
[2024-05-09] MEDS: ProAmatine 5 MG PO ×3 (08:25→17:45)
[2024-05-09] MEDS: PROTONIX IV 40 MG IV (08:25)
[2024-05-09] MEDS: KCL 40 MEQ PO ×2 (08:29→11:54)
--- NOTE | 2024-05-09 09:28 | W.PN.HOSP.TC ---
Today's Communication/Plan
-
Transfuse 1 unit packed red blood cell
Recheck hemoglobin after transfusion
Changed simethicone to scheduled
Symptomatic management with pain management, bowel regiment
Assessment / Plan
Assessment / Plan
Impression: 79-year-old female past history of A-fib on Eliquis, CKD, colon cancer status post resection and chemoradiation, ileostomy with recent reversal of ileostomy. Presents with abdominal pain and bright red blood per rectum, found to be
hypotensive tachycardic with hemoglobin of 4.8. She received 3 units packed red blood cells and was admitted for further management.
Plan:
#Acute GI bleed
#Hemorrhagic shock
unable to determine if related to eliquis
3 days bright red blood per rectum
Currently having brown, nonbloody stools
Hypotensive on presentation to ED
Improved status post IV fluids and blood products
Received 3 units packed red blood cells and prothrombin complex
Continue IV fluids
Monitor hemoglobin
Hold anticoagulation
Colorectal consulted and following
GI has signed off
Pain regiment Tylenol and oxycodone
Bowel regiment as needed for constipation
Simethicone changed from as needed to 4 times daily scheduled
# Abdominal ileus
Abdominal x-ray demonstrated possible ileus
CT abdomen with oral contrast demonstrated ileus, no anastomotic leaks and no obstruction
Currently holding antispasmodics in setting of ileus
Continue n.p.o. with sips
Definitive management per colorectal surgery
Recommendations appreciated
#Acute on chronic anemia
Hemoglobin on admission 4.8
Status post 3 units packed red blood cells and PCC in ED
Hemoglobin returned to 7.0 today, 05/09/2024
Ordered 1 additional unit of packed red blood cell
Recheck H&H after transfusion
Daily CBC
#Fluid retention
Crackles on exam, swelling noted in lower extremities
Patient receiving IV fluids due to shock, currently gentle at 40 mL/h
Takes furosemide 20 every 48 hours at home
will hold off on Lasix for now as pt was recently in shock and pressures are soft
#History of rectal cancer
Status post resection, neoadjuvant chemoradiation with temporary ostomy
CT demonstrated 4 x 8 x 3 cm ill-defined collection in presacral space, per colorectal this is likely postoperative collection
Large cystic lesion was also seen left adnexa, per colorectal this was a renal cyst which is benign and has been worked up previously
Colorectal continues to follow patient
#Low-grade fever/chills
Patient started on empiric IV aztreonam every 8 hours and metronidazole IV every 8 hours
Chills have resolved
Patient has been afebrile and white count has been within normal limits throughout her stay
Discontinue IV antibiotics
#Chronic kidney disease
Baseline creatinine 1.2
Creatinine 1.1, at baseline
Daily CMP
#Atrial fibrillation on Eliquis
Continue amiodarone
Currently holding Eliquis due to GI bleed
Apparently ablation planned in future
Telemetry
#Valvular disease
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
Telemetry
#Hyperthyroidism
Continue methimazole
DVT prophylaxis: Holding for now
Diet: N.p.o.
CODE STATUS Limited DNR
Anticipated Discharge: > 48 hours
Subjective/Interval History
-
Date of Service: May 09, 2024
No acute events overnight
Patient still reports gas pain, states simethicone helps
Relieves gas on toilet and has watery brown bowel movements
Objective Data
-
Labs:
Laboratory Results
05/09/24
05:36
WBC 6.4
Hgb 7.0 L
Hct 20.6 L*
Plt Count 210
Sodium 137
Potassium 3.3 L
Chloride 106
Carbon Dioxide 22
BUN 13
Creatinine 1.1 H
Glucose 87
Calcium 8.0 L
Total Bilirubin 0.4
AST 18
ALT 11
Alkaline Phosphatase 61
Vital Signs:
Vital Signs
Temp Pulse Resp BP Pulse Ox
98.8 F 69 18 105/45 96
05/09/24 07:45 05/09/24 08:25 05/09/24 07:45 05/09/24 08:25 05/09/24 07:45
I&O
05/08/24 05/09/24 05/10/24
06:59 06:59 05:59
Intake Total 1640 / 1640 240 / 240
Balance 1640 / 1640 240 / 240
Review of Systems
-
History Source: Patient
Constitutional: Reports No Symptoms
Respiratory: Reports No Symptoms
Cardiac: Reports No Symptoms
Abdomen/GI: Reports Abdominal Pain, Diarrhea, Pain, Bloated and Other (Reports cramping and gas pain, improving); Denies Nausea, Vomiting, Bloody Stools or Black Stools
Musculoskeletal: Reports Edema
Physical Exam
-
General: Well Developed, Well Nourished, Comfortable and Conversant
Respiratory: Crackles (Crackles in base of lungs)
Cardiac: Regular Rhythm and S1/S2
GI: Soft, Tender and Distended
Musculoskeletal: No Edema
Skin: Warm and Dry
Neuro: Awake, Alert, Oriented and AO x 3
Psych: Calm and Intact Judgement/Insight
Data Reviewed
-
Diagnostic Radiology: Report Reviewed by me and Discussed with Physician
CT Scan: Report Reviewed by me and Discussed with Physician
Labs: Labs Reviewed by me and Discussed with Physician
--- NOTE | 2024-05-09 11:13 | W.PN.CRS1 ---
Today's Communication / Plan
-
d/c senna
xrays in AM if still bloated
Assessment/Plan
-
Assessment: 79-year-old female with a recent iliac reversal presents to the ER after having abdominal pain and episodes of rectal bleeding at home found to have a hemoglobin of 0.8, Cardiac, and blood pressure of 50s over 30s.
05/06- K centra, 2 units PRBCs
05/07- hgb 7.1, 1 more PRBCs
05/09- 1 PRBCs 4 units total
Plan:
-Continue to trend hemoglobin.
-No plans for surgery at this time.
-Monitor and record bowel movements. No bloody bowel movements since admission.
-Holding anticoagulation.
-Continue NPO with sips of water today given bloating.
-D/c Senna
-If still bloated, will repeat abdominal xrays in AM
Subjective Data
Subjective Data
Date of Service: May 09, 2024
Patient states she still feels like she is 'full of gas'. No she has no further bleeding since admission. She denies nausea or vomiting. She is not that hungry.
Objective Data
-
Vital Signs
Temp Pulse Resp BP Pulse Ox
98.2 F 66 16 115/50 97
05/09/24 11:11 05/09/24 11:11 05/09/24 11:11 05/09/24 11:11 05/09/24 11:11
Intake & Output
05/08/24 05/09/24 05/10/24
06:59 06:59 05:59
Intake Total 1640 / 1640 240 / 240 0 / 0
Balance 1640 / 1640 240 / 240 0 / 0
Intake:
Oral fluids 300 / 300 240 / 240
IV fluids (Total) 1140 / 1140
Nss 1,000 ml @ 40 mls/hr IV . 700 / 700
Q24H [facility] Rx#:[id number]
IV piggybacks 200 / 200
Blood Product Amount Infused ( 0 / 0
mL)
Packed Rbc Leukoreduced Unit 0 / 0
[id number]
Other:
Number of approximated MODERATE 2
amounts of urine
How many times incontinent 1 1
SMALL amount urine
How many times incontinent 2
MODERATE amount urine
How many times incontinent 1
SATURATED amount urine
Lab Results
05/09/24 05:36
05/09/24 05:36
Physical Exam
-
General: No Acute Distress and AOx3
Abdomen: Soft, Distended (mild-moderate) and Tender (mild throughout)
Skin: Warm and Dry
[2024-05-09 14:49] LABS: Hematocrit 27.8 % (37.0-47.0); Hemoglobin 9.5 g/dL (12.0-16.0)
[2024-05-09] MEDS: TYLENOL 650 MG PO (19:26)
[2024-05-09] MEDS: ROXICODONE 10 MG PO ×2 (19:51→23:54)
[2024-05-10] VITALS (7 sets, daily range): BP systolic 94–121; BP diastolic 41–55; BMI 24.7
[2024-05-10] MEDS: ROXICODONE 5 MG PO (04:01)
[2024-05-10 07:02] LABS: Hematocrit 24.7 % (37.0-47.0); Hemoglobin 8.2 g/dL (12.0-16.0); Mean Corp Hgb Conc. 33.2 g/dL (33.0-37.0); Mean Corpuscular Hgb 30.5 pg (27.0-31.0); Mean Corpuscular Volume 91.8 fL (81.0-99.0); Mean Platelet Volume 10.5 fL (7.4-10.4); Platelet Count 219 10^3/uL (130-400); Red Blood Cell Count 2.69 10^6/uL (4.20-5.40); Red Cell Dist. Width 16.9 % (11.5-14.5); White Blood Cell Count 6.2 10^3/uL (4.8-10.8)
[2024-05-10 07:27] LABS: ALT (SGPT) 10 U/L (0-35); AST (SGOT) 19 U/L (14-36); Albumin 2.2 g/dl (3.5-5.0); Alkaline Phosphatase 62 U/L (38-126); Blood Urea Nitrogen 12 mg/dl (7-17); Calcium 8.4 mg/dl (8.4-10.2); Carbon Dioxide 23 mmol/L (22-30); Chloride 108 mmol/L (98-107); Estimated Creatinine Clearance 42 ml/min; Glucose 71 mg/dl (70-99); Potassium 4.4 mmol/L (3.5-5.1); Sodium 138 mmol/L (135-145); Total Bilirubin 0.4 mg/dl (0.2-1.3); Total Protein 4.5 g/dl (6.3-8.2); eGFR 57.66
[2024-05-10] MEDS: MYLICON 80 MG PO ×4 (08:56→21:27)
[2024-05-10] MEDS: ProAmatine 5 MG PO ×2 (08:56→14:08)
[2024-05-10] MEDS: PROTONIX IV 40 MG IV (08:56)
[2024-05-10] MEDS: PACERONE 200 MG PO (08:56)
[2024-05-10] MEDS: NSS (PRESERVATIVE FREE) 10 ML IV (08:57)
--- NOTE | 2024-05-10 09:33 | W.PN.HOSP.TC ---
Today's Communication/Plan
-
Pain regimen X strength Tylenol
Continue as needed simethicone for gas pains
Added Bentyl as needed for abdominal cramping
Advance diet to clear liquids, per colorectal
Assessment / Plan
Assessment / Plan
Impression: 79-year-old female past history of A-fib on Eliquis, CKD, colon cancer status post resection and chemoradiation, ileostomy with recent reversal of ileostomy. Presents with abdominal pain and bright red blood per rectum, found to be
hypotensive tachycardic with hemoglobin of 4.8. She received 3 units packed red blood cells and was admitted for further management.
Plan:
#Acute GI bleed
#Hemorrhagic shock
unable to determine if related to eliquis
3 days bright red blood per rectum
Currently having brown, nonbloody stools
Hypotensive on presentation to ED
Improved status post IV fluids and blood products
Received 4 units packed red blood cells and prothrombin complex
Monitor hemoglobin
Hold anticoagulation
Colorectal consulted and following
GI has signed off
Pain regiment extra strength Tylenol
Simethicone changed from as needed to 4 times daily scheduled for gas pain
Bentyl as needed for cramping
One-time 500 mL saline bolus for soft pressures
# Abdominal ileus
Abdominal x-ray demonstrated possible ileus
CT abdomen with oral contrast demonstrated ileus, no anastomotic leaks and no obstruction
Discontinued oxycodone and replaced with extra strength Tylenol 1000 every 6
LFTs within normal limits, will trend daily
Colorectal advancing diet to clear liquids, advance per colorectal
Definitive management per colorectal surgery
Recommendations appreciated
#Acute on chronic anemia
Hemoglobin on admission 4.8
Status post 4 units packed red blood cells and PCC, 3 in ED and 1 on floors
Recheck H&H and Daily CBC
Will consider bleeding scan CT if hemoglobin continues to downtrend
#Fluid retention
Crackles on exam, swelling noted in lower extremities
Patient receiving IV fluids due to shock, currently gentle at 40 mL/h
Takes furosemide 20 every 48 hours at home
will hold off on Lasix for now as pt was recently in shock and pressures are soft
#History of rectal cancer
Status post resection, neoadjuvant chemoradiation with temporary ostomy
CT demonstrated 4 x 8 x 3 cm ill-defined collection in presacral space, per colorectal this is likely postoperative collection
Large cystic lesion was also seen left adnexa, per colorectal this was a renal cyst which is benign and has been worked up previously
Colorectal continues to follow patient
#Low-grade fever/chills
Patient started on empiric IV aztreonam every 8 hours and metronidazole IV every 8 hours
Chills have resolved
Patient has been afebrile and white count has been within normal limits throughout her stay
Discontinue IV antibiotics
#Chronic kidney disease
Baseline creatinine 1.2
Creatinine 1.1, at baseline
Daily CMP
#Atrial fibrillation on Eliquis
Continue amiodarone
Currently holding Eliquis due to GI bleed
Apparently ablation planned in future
Telemetry
#Valvular disease
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
Telemetry
#Hyperthyroidism
Continue methimazole
DVT prophylaxis: Holding for now
Diet: Clear liquids
CODE STATUS Limited DNR
Anticipated Discharge: > 48 hours
Subjective/Interval History
-
Date of Service: May 10, 2024
Patient reports still being bloated and passing gas, and having liquid brown bowel movements
Objective Data
-
Labs:
Laboratory Results
05/10/24
06:11
WBC 6.2
Hgb 8.2 L
Hct 24.7 L
Plt Count 219
Sodium 138
Potassium 4.4 D
Chloride 108 H
Carbon Dioxide 23
BUN 12
Creatinine 1.0
Glucose 71
Calcium 8.4
Total Bilirubin 0.4
AST 19
ALT 10
Alkaline Phosphatase 62
Vital Signs:
Vital Signs
Temp Pulse Resp BP Pulse Ox
98.3 F 63 20 99/49 99
05/10/24 07:56 05/10/24 07:56 05/10/24 07:56 05/10/24 07:56 05/10/24 07:56
I&O
05/09/24 05/10/24 05/11/24
07:59 06:59 06:59
Intake Total
Balance
Review of Systems
-
History Source: Patient
Constitutional: Reports No Symptoms
Respiratory: Reports No Symptoms
Cardiac: Reports No Symptoms
Abdomen/GI: Reports Abdominal Pain, Diarrhea and Bloated; Denies Nausea, Vomiting, Bloody Stools or Black Stools
Physical Exam
-
General: Well Developed, Well Nourished, Comfortable and Conversant
Respiratory: Clear to Auscultation
Cardiac: Regular Rhythm and S1/S2
GI: Soft, Tender and Distended
Skin: Warm and Dry
Neuro: Awake, Alert, Oriented and AO x 3
Psych: Calm and Intact Judgement/Insight
Data Reviewed
-
Labs: Labs Reviewed by me and Discussed with Physician
[2024-05-10] MEDS: TYLENOL 1000 MG PO ×2 (10:21→18:07)
[2024-05-10] MEDS: BENTYL 10 MG PO ×2 (10:56→18:07)
--- NOTE | 2024-05-10 11:36 | W.PN.CRS1 ---
Today's Communication / Plan
-
advance to clears
Assessment/Plan
-
Assessment: 79-year-old female with a recent iliac reversal presents to the ER after having abdominal pain and episodes of rectal bleeding at home found to have a hemoglobin of 0.8, Cardiac, and blood pressure of 50s over 30s.
05/06- K centra, 2 units PRBCs
05/07- hgb 7.1, 1 more PRBCs
05/09- 1 PRBCs 4 units total
Plan:
-Continue to trend hemoglobin.
-No plans for surgery at this time.
-Monitor and record bowel movements. No bloody bowel movements since admission.
-Holding anticoagulation.
-Advance diet to clears.
-D/c narcotics
Subjective Data
Subjective Data
Date of Service: May 10, 2024
Patient states she has no nausea or vomiting. She has no blood in her stool. She has flatus and a few watery stools. She is thirsty.
Objective Data
-
Vital Signs
Temp Pulse Resp BP Pulse Ox
98.3 F 63 20 99/49 99
05/10/24 07:56 05/10/24 07:56 05/10/24 07:56 05/10/24 07:56 05/10/24 07:56
Intake & Output
05/09/24 05/10/24 05/11/24
07:59 06:59 06:59
Intake Total
Balance
Intake:
Oral fluids
Blood products
Blood Product Amount Infused (
mL)
Packed Rbc Leukoreduced Unit
[id number]
Other:
Number of approximated MODERATE
amounts of urine
Number of approximated LARGE
amounts of urine
How many times incontinent
SMALL amount urine
Lab Results
05/10/24 06:11
05/10/24 06:11
Physical Exam
-
General: No Acute Distress and AOx3
Abdomen: Soft, Distended (mild) and Tender (near umbilicus)
Incision: Clear, Dry, Intact
[2024-05-10 12:22] LABS: Hematocrit 27.1 % (37.0-47.0); Hemoglobin 9.1 g/dL (12.0-16.0)
--- NOTE | 2024-05-10 16:14 | CM ---
Met with patient at bedside; explained that PT recommended home health for PT; Patient declined
Chart reviewed: Likely discharge > 48 hours
[2024-05-10] MEDS: ProAmatine PO (18:06)
[2024-05-11 03:44] VITALS: BP 129/55
[2024-05-11 05:04] VITALS: BMI 24.7
[2024-05-11 07:00] VITALS: BP 103/50
[2024-05-11 08:30] LABS: Hematocrit 26.1 % (37.0-47.0); Hemoglobin 8.7 g/dL (12.0-16.0); Mean Corp Hgb Conc. 33.3 g/dL (33.0-37.0); Mean Corpuscular Hgb 30.5 pg (27.0-31.0); Mean Corpuscular Volume 91.6 fL (81.0-99.0); Mean Platelet Volume 9.9 fL (7.4-10.4); Platelet Count 253 10^3/uL (130-400); Red Blood Cell Count 2.85 10^6/uL (4.20-5.40); Red Cell Dist. Width 16.4 % (11.5-14.5); White Blood Cell Count 6.6 10^3/uL (4.8-10.8)
--- NOTE | 2024-05-11 08:30 | W.PN.CD ---
Today's Communication / Plan
-
Await labs including hemoglobin and potassium
No plan to resume Lasix at this point would only use as needed
Check follow-up INR
There is no plan to have patient on both Eliquis and aspirin. Plan would be to restart Eliquis when safe from a colorectal surgery standpoint. If bleeding risk felt to be too high to start Eliquis then I would suggest using aspirin 81 mg a day.
Impression / Plan
-
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
in the setting of amiodarone maintained on methimazole and managed by endocrinology, anticoagulation with Eliquis, colorectal cancer status post chemotherapy, surgical resection and most recently had resection and closure of ileostomy. Patient was
discharged 04/26/2024 and then readmitted with severe symptomatic anemia and rectal bleeding 05/06/2024. Patient had a hemoglobin of 4.8 on presentation. Received Kcentra and has been off Eliquis. Patient received PRBCs with improvement in
hemoglobin to 9.1. Patient currently feels better no complaints of shortness of breath or lower extremity edema no recurrent bleeding.
Note patient had some issues with hypokalemia last hospitalization then as an outpatient had issues with edema was given some Lasix and had some severe hypokalemia prior to admission. She had been on some replacement therapy with potassium chloride
and due to the severity of her hypokalemia was given increased doses of KCl and states that this gave her diarrhea.
Also of note prior to her most recent surgery she had been on Eliquis 2.5 mg twice daily because she had some bruising and bleeding blisters on her arms and her creatinine was above 1.5 and her normal weight was around 132 pounds. She was not
normally maintained on aspirin post TAVR just maintained on Eliquis. Patient had started herself on aspirin when she was taken off Eliquis prior to her surgery because she was afraid of being on nothing. Postprocedure plan was for her to be just
on Eliquis and dose was placed at 5 mg twice daily since her creatinine had normalized and her weight was greater than 132 pounds / 60 kg. However it should be noted that she was on both Eliquis and aspirin prior to her most recent hospitalization.
GI bleeding. Stabilized. No active bleeding
-Hemoglobin 9.1
-Patient remains off anticoagulation
-Will review initiation of anticoagulation with colorectal surgery. Note the plan would be for patient to be on Eliquis only WITHOUT aspirin. If colorectal surgery feels risk of anticoagulation is too high then would just use aspirin alone
-Check INR
.
PAF. Currently stable and in sinus rhythm
-Continue current dosing of amiodarone
-Anticoagulation when safe..
.
Status post TAVR with paravalvular AR.
-Plan for continued conservative management.
-No clear evidence of hemolysis. Bilirubin is normal
-SBE prophylaxis prior to procedures
-Continue to monitor volume status
.
Edema. Noticed as an outpatient. Was suspected to be related to the IV fluids given during surgery. Now was
-Would only use Lasix as needed as outpatient.
.
Hypokalemia. Improved. Multiple factors contributing including recent abdominal surgery with need for NG tube, diarrhea and recent use diuretic.
-Continue to monitor
.
Rectal cancer management as per colorectal surgery and oncology
Physical Exam
Vital Signs/Labs
Vital Signs
Temp Pulse Resp BP Pulse Ox
97.3 F 67 18 129/55 97
05/11/24 03:44 05/11/24 03:44 05/11/24 03:44 05/11/24 03:44 05/11/24 03:44
05/10/24 05/11/24 05/12/24
06:59 06:59 06:59
Actual Weight 67.245 kg
PT 23.9 Sec (11.4-14.6) H 05/06/24 13:55
INR 2.11 05/06/24 13:55
APTT 43.8 Sec (23.4-35.0) H 05/06/24 13:55
Physical Exam
Constitutional: No acute distress
Cardiovascular: Rhythm & rate is regular, Systolic murmur present and Diastolic murmur present
Respiratory: Wheeze Absent and Rhonchi Absent
GI: Soft, Non tender and Normal bowel sounds
Neuro/Psych: Alert, Oriented and AO x 3
Data Reviewed
-
Date of Service: May 11, 2024
Medical Decision Making: Reviewed Test Results
EKG: Report Reviewed by me
Echo: Report Reviewed by me
Medical Tests (PFT, Pathology etc): Report Reviewed by me and Discussed with Physician
Labs: Labs Reviewed by me
[2024-05-11] MEDS: ProAmatine 7.5 MG PO ×3 (08:42→17:01)
[2024-05-11] MEDS: PROTONIX IV 40 MG IV (08:42)
[2024-05-11] MEDS: MYLICON 80 MG PO ×4 (08:42→22:20)
[2024-05-11] MEDS: NSS (PRESERVATIVE FREE) 10 ML IV (08:42)
[2024-05-11] MEDS: PACERONE 200 MG PO (08:42)
[2024-05-11 09:04] LABS: ALT (SGPT) 11 U/L (0-35); AST (SGOT) 23 U/L (14-36); Albumin 2.3 g/dl (3.5-5.0); Alkaline Phosphatase 71 U/L (38-126); Blood Urea Nitrogen 12 mg/dl (7-17); Calcium 8.2 mg/dl (8.4-10.2); Carbon Dioxide 23 mmol/L (22-30); Chloride 107 mmol/L (98-107); Estimated Creatinine Clearance 38 ml/min; Glucose 76 mg/dl (70-99); Potassium 4.3 mmol/L (3.5-5.1); Sodium 140 mmol/L (135-145); Total Bilirubin 0.3 mg/dl (0.2-1.3); Total Protein 4.7 g/dl (6.3-8.2); eGFR 51.43
--- NOTE | 2024-05-11 09:16 | W.PN.HOSP.TC ---
Addendum entered and electronically signed by Luis Garcia MD 05/11/24 14:18:
Imaging
IMPRESSION:
No evidence of acute GI bleed. Postoperative changes of prior partial bowel resection. There is a 4.8 x 3.0 cm slightly ill-defined likely developing collection in the presacral space which may be a postoperative collection.
Similar appearance of the large cystic lesion extending from the left adnexa into the left retroperitoneal/anterior pararenal space with associated mass effect. There is apparent enhancement along the anterior inferior aspect of the lesion
suspicious for cystic ovarian neoplasm.
Bilateral adrenal lesions, similar in appearance to prior.
Infrarenal abdominal aortic aneurysm which is unchanged from prior and measuring up to 3.5 cm.
There is circumferential wall beginning of the urinary bladder which may be secondary to underdistention however can be seen with cystitis.
Physical Exam
NAD, resting comfortably in bed
Scleral anicteric
Moist mucous membranes
No JVD
CTA bilateral
Normal S1-S2 no murmurs
Soft nontender nondistended bowel sounds active
No peripheral pitting edema
Moves extremities spontaneously
AAOx3
Assessment and Plan
Hemorrhagic shock
-Resolved
Acute lower GI bleed with blood loss anemia on chronic anemia
-Resolved, hemoglobin stable hemodynamic stable
-Discussed with colorectal surgery will resume anticoagulation and monitor overnight
-Advance diet as tolerated
Abdominal ileus
-Discontinue narcotics
-EXTR strength Tylenol
-Follow-up LFTs
-Advance diet as tolerated
Atrial fibrillation
-Continue amiodarone
-Resume Eliquis
-Repeat CBC in the a.m.
-Eventual ablation in the future
-Telemonitoring
Chronic kidney disease CKD stage II
-Follow renal function
-Monitor urinary output
-Avoid nephrotoxins hypotension
Valvular heart disease
-S/p TAVR in February 2020
-Outpatient valve clinic follow-up with cardiology
If hgb stable and able to tolerate diet then plan to DC home tomorrow
Original Note:
Today's Communication/Plan
-
Restart Eliquis
Advance diet as tolerated
Symptomatic management
Assessment / Plan
Assessment / Plan
Impression: 79-year-old female past history of A-fib on Eliquis, CKD, colon cancer status post resection and chemoradiation, ileostomy with recent reversal of ileostomy. Presents with abdominal pain and bright red blood per rectum, found to be
hypotensive tachycardic with hemoglobin of 4.8. She received 3 units packed red blood cells and was admitted for further management.
Plan:
#Acute GI bleed
#Hemorrhagic shock
unable to determine if related to eliquis
3 days bright red blood per rectum
Currently having brown, nonbloody stools
Hypotensive on presentation to ED
Improved status post IV fluids and blood products
Received 4 units packed red blood cells and prothrombin complex
Monitor hemoglobin
Hold anticoagulation
Colorectal consulted and following
GI has signed off
Pain regiment extra strength Tylenol
Simethicone changed from as needed to 4 times daily scheduled for gas pain
Bentyl as needed for cramping
Patient refusing IV saline boluses
Increased midodrine to 7.5 3 times daily
# Abdominal ileus
Abdominal x-ray demonstrated possible ileus
CT abdomen with oral contrast demonstrated ileus, no anastomotic leaks and no obstruction
Discontinued oxycodone and replaced with extra strength Tylenol 1000 every 6
LFTs within normal limits, will trend daily
Advance diet per colorectal
Definitive management per colorectal surgery
Recommendations appreciated
#Acute on chronic anemia
Stable
Hemoglobin on admission 4.8
Status post 4 units packed red blood cells and PCC, 3 in ED and 1 on floors
Recheck H&H and Daily CBC
Will consider bleeding scan CT if hemoglobin continues to downtrend
#Fluid retention
Crackles on exam, swelling noted in lower extremities
Patient receiving IV fluids due to shock, currently gentle at 40 mL/h
Takes furosemide 20 every 48 hours at home
will hold off on Lasix for now as pt was recently in shock and pressures are soft
#History of rectal cancer
Status post resection, neoadjuvant chemoradiation with temporary ostomy
CT demonstrated 4 x 8 x 3 cm ill-defined collection in presacral space, per colorectal this is likely postoperative collection
Large cystic lesion was also seen left adnexa, per colorectal this was a renal cyst which is benign and has been worked up previously
Colorectal continues to follow patient
#Low-grade fever/chills
Patient started on empiric IV aztreonam every 8 hours and metronidazole IV every 8 hours
Chills have resolved
Patient has been afebrile and white count has been within normal limits throughout her stay
Discontinue IV antibiotics
#Chronic kidney disease
Baseline creatinine 1.2
Creatinine 1.1, at baseline
Daily CMP
#Atrial fibrillation on Eliquis
Continue amiodarone
Restart Eliquis home dose
Apparently ablation planned in future
Telemetry
#Valvular disease
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
Telemetry
#Hyperthyroidism
Continue methimazole
DVT prophylaxis: Holding for now
Diet: Clear liquids
CODE STATUS Limited DNR
Anticipated Discharge: 24 - 48 hours
Subjective/Interval History
-
Date of Service: May 11, 2024
still passing gas and watery bowel movements, no blood
Objective Data
-
Labs:
Laboratory Results
05/11/24 05/11/24
06:16 09:09
WBC 6.6
Hgb 8.7 L
Hct 26.1 L
Plt Count 253
PT Pending
INR Pending
APTT Pending
Sodium 140
Potassium 4.3
Chloride 107
Carbon Dioxide 23
BUN 12
Creatinine 1.1 H
Glucose 76
Calcium 8.2 L
Total Bilirubin 0.3
AST 23
ALT 11
Alkaline Phosphatase 71
Vital Signs:
Vital Signs
Temp Pulse Resp BP Pulse Ox
98.4 F 67 16 103/50 99
05/11/24 07:00 05/11/24 07:00 05/11/24 07:00 05/11/24 07:00 05/11/24 07:00
I&O
05/10/24 05/11/24 05/12/24
06:59 06:59 06:59
Intake Total 720 / 720
Balance 720 / 720
Review of Systems
-
History Source: Patient
Constitutional: Reports No Symptoms
Respiratory: Reports No Symptoms
Cardiac: Reports No Symptoms
Abdomen/GI: Reports Abdominal Pain and Bloated
Physical Exam
-
General: Well Developed, Well Nourished and Comfortable
Respiratory: Clear to Auscultation
Cardiac: Regular Rhythm and S1/S2
GI: Soft, Tender and Distended
Musculoskeletal: No Edema
Skin: Warm and Dry
Neuro: Awake, Alert, Oriented and AO x 3
Psych: Calm and Intact Judgement/Insight
Data Reviewed
-
Labs: Labs Reviewed by me and Discussed with Physician
--- NOTE | 2024-05-11 09:34 | W.PN.CRS1 ---
Today's Communication / Plan
-
low residue
okay to restart xarelto
Assessment/Plan
-
Assessment: 79-year-old female with a recent iliac reversal presents to the ER after having abdominal pain and episodes of rectal bleeding at home found to have a hemoglobin of 0.8, Cardiac, and blood pressure of 50s over 30s.
05/06- K centra, 2 units PRBCs
05/07- hgb 7.1, 1 more PRBCs
05/09- 1 PRBCs 4 units total
Plan:
-Continue to trend hemoglobin.
-No plans for surgery at this time.
-Monitor and record bowel movements. No bloody bowel movements since admission.
-OKay to restart Xarelto from our perspective. Discussed with cards and hospitalist.
-Advance diet to low residue.
Subjective Data
Subjective Data
Date of Service: May 11, 2024
Patient states she feels 'much improved' since admission. She continues to have liquid stool. She has flatus. she is not that hungry. She has no pain and her bloating as gone down.
Objective Data
-
Vital Signs
Temp Pulse Resp BP Pulse Ox
98.4 F 67 16 103/50 99
05/11/24 07:00 05/11/24 07:00 05/11/24 07:00 05/11/24 07:00 05/11/24 07:00
Intake & Output
05/10/24 05/11/24 05/12/24
06:59 06:59 06:59
Intake Total 720 / 720
Balance 720 / 720
Intake:
Oral fluids 720 / 720
IV fluids (Total) 0 / 0
IV piggybacks 0 / 0
Blood products
Blood Product Amount Infused (
mL)
Packed Rbc Leukoreduced Unit
[id number]
Other:
Number of approximated MODERATE 1
amounts of urine
Number of approximated LARGE
amounts of urine
Lab Results
05/11/24 06:16
05/11/24 06:16
Physical Exam
-
General: No Acute Distress and AOx3
Abdomen: Soft, Non Distended and Non Tender
Skin: Warm and Dry
Incision: Clear, Dry, Intact
[2024-05-11 09:52] LABS: INR 1.36; PT 16.6 Sec (11.4-14.6)
[2024-05-11 09:53] LABS: APTT 50.1 Sec (23.4-35.0)
[2024-05-11] MEDS: TYLENOL 1000 MG PO ×3 (09:55→23:13)
[2024-05-11 11:00] VITALS: BP 92/41
[2024-05-11 15:25] VITALS: BP 94/41
[2024-05-11] MEDS: ELIQUIS 5 MG PO (19:30)
[2024-05-11 20:00] VITALS: BP 98/39
[2024-05-11 23:45] VITALS: BP 100/39
[2024-05-12 03:33] VITALS: BP 103/44
[2024-05-12 05:47] VITALS: BMI 23.9
--- NOTE | 2024-05-12 07:30 | W.PN.HOSP.TC ---
Addendum entered and electronically signed by Luis Garcia MD 05/12/24 15:39:
resumed eliquis. hgb stable. hemodyncamis stable. no evidence of bleeding
-at this time wants to continue eliquis. understands the potential for bleeding.
--if she does bleed then will need to have another conversation about eliquis use
- - -if comes off of eliuis might be a candidate for watchman
-repeat cbc in 3days with pcp
-return precautions offered at bedside.
outpatient crs and cardiology follow up.
More than 30 minutes spent in discharge including
Final examination of the patient
Summarizing hospital stay
Instructions for continuing care to all relevant caregivers
Preparation of discharge records, prescriptions, and referral forms
Total time spent (in minutes): 36mins
Original Note:
Today's Communication/Plan
-
Discharge home with cardiology and colorectal follow-up
Assessment / Plan
Assessment / Plan
Impression: 79-year-old female past history of A-fib on Eliquis, CKD, colon cancer status post resection and chemoradiation, ileostomy with recent reversal of ileostomy. Presents with abdominal pain and bright red blood per rectum, found to be
hypotensive tachycardic with hemoglobin of 4.8. She received 3 units packed red blood cells and was admitted for further management.
Plan:
#Acute GI bleed
#Hemorrhagic shock
resloved
3 days bright red blood per rectum
Currently having brown, nonbloody stools
Hypotensive on presentation to ED
Improved status post IV fluids and blood products
Received 4 units packed red blood cells and prothrombin complex
Monitor hemoglobin
Colorectal consulted and following
GI has signed off
Pain regiment extra strength Tylenol
Simethicone changed from as needed to 4 times daily scheduled for gas pain
Bentyl as needed for cramping
Patient refusing IV saline boluses
Increased midodrine to 7.5 3 times daily
# Abdominal ileus
Abdominal x-ray demonstrated possible ileus
CT abdomen with oral contrast demonstrated ileus, no anastomotic leaks and no obstruction
Discontinued oxycodone and replaced with extra strength Tylenol 1000 every 6
LFTs within normal limits, will trend daily
Advance diet per colorectal
Definitive management per colorectal surgery
Recommendations appreciated
#Acute on chronic anemia
Stable
Hemoglobin on admission 4.8
Status post 4 units packed red blood cells and PCC, 3 in ED and 1 on floors
Recheck H&H and Daily CBC
Will consider bleeding scan CT if hemoglobin continues to downtrend
#Fluid retention
Crackles on exam, swelling noted in lower extremities
Patient receiving IV fluids due to shock, currently gentle at 40 mL/h
Takes furosemide 20 every 48 hours at home
will hold off on Lasix for now as pt was recently in shock and pressures are soft
cards rec lasix only as needed.
#History of rectal cancer
Status post resection, neoadjuvant chemoradiation with temporary ostomy
CT demonstrated 4 x 8 x 3 cm ill-defined collection in presacral space, per colorectal this is likely postoperative collection
Large cystic lesion was also seen left adnexa, per colorectal this was a renal cyst which is benign and has been worked up previously
Colorectal continues to follow patient
#Low-grade fever/chills
Patient started on empiric IV aztreonam every 8 hours and metronidazole IV every 8 hours
Chills have resolved
Patient has been afebrile and white count has been within normal limits throughout her stay
Discontinue IV antibiotics
#Chronic kidney disease
Baseline creatinine 1.2
Creatinine 1.1, at baseline
Daily CMP
#Atrial fibrillation on Eliquis
Continue amiodarone
Restart Eliquis home dose
Apparently ablation planned in future
Telemetry
#Valvular disease
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
Telemetry
#Hyperthyroidism
Continue methimazole
DVT prophylaxis: Oral Eliquis
Diet: Clear liquids
CODE STATUS Limited DNR
Anticipated Discharge: Within 24 hours
Subjective/Interval History
-
Date of Service: May 12, 2024
Patient reports no bleeding or bloody bowel movements since restarting Eliquis
Objective Data
-
Labs:
Laboratory Results
05/12/24
06:36
WBC Pending
Hgb Pending
Hct Pending
Plt Count Pending
Sodium Pending
Potassium Pending
Chloride Pending
Carbon Dioxide Pending
BUN Pending
Creatinine Pending
Glucose Pending
Calcium Pending
Total Bilirubin Pending
AST Pending
ALT Pending
Alkaline Phosphatase Pending
Vital Signs:
Vital Signs
Temp Pulse Resp BP Pulse Ox
97.9 F 60 16 103/44 97
05/12/24 03:33 05/12/24 03:33 05/12/24 03:33 05/12/24 03:33 05/12/24 03:33
I&O
05/11/24 05/12/24 05/13/24
06:59 06:59 06:59
Intake Total 720 / 720 1380 / 1380
Balance 720 / 720 1380 / 1380
Review of Systems
-
Respiratory: Reports No Symptoms
Cardiac: Reports No Symptoms
Abdomen/GI: Reports Abdominal Pain and Bloated
Physical Exam
-
General: Well Developed, No Apparent Distress, Comfortable and Conversant
Respiratory: Clear to Auscultation
Cardiac: Regular Rhythm and S1/S2
GI: Soft, Tender and Distended
Musculoskeletal: No Edema
Skin: Warm and Dry
Neuro: Awake, Alert, Oriented and AO x 3
Psych: Calm and Intact Judgement/Insight
Data Reviewed
-
Labs: Labs Reviewed by me and Discussed with Physician
[2024-05-12 07:45] VITALS: BP 110/48
[2024-05-12] MEDS: NSS (PRESERVATIVE FREE) IV ×2 (07:46→09:06)
[2024-05-12] MEDS: PROTONIX IV IV ×2 (07:46→09:06)
[2024-05-12] MEDS: PACERONE 200 MG PO (07:47)
[2024-05-12] MEDS: ProAmatine 7.5 MG PO ×2 (07:47→12:52)
[2024-05-12] MEDS: MYLICON 80 MG PO ×2 (07:47→12:51)
[2024-05-12] MEDS: ELIQUIS 5 MG PO (07:47)
[2024-05-12 08:34] LABS: Hematocrit 24.3 % (37.0-47.0); Hemoglobin 8.1 g/dL (12.0-16.0); Mean Corp Hgb Conc. 33.3 g/dL (33.0-37.0); Mean Corpuscular Hgb 29.6 pg (27.0-31.0); Mean Corpuscular Volume 88.7 fL (81.0-99.0); Mean Platelet Volume 10.4 fL (7.4-10.4); Platelet Count 285 10^3/uL (130-400); Red Blood Cell Count 2.74 10^6/uL (4.20-5.40); Red Cell Dist. Width 16.6 % (11.5-14.5); White Blood Cell Count 6.7 10^3/uL (4.8-10.8)
[2024-05-12 09:22] LABS: ALT (SGPT) 11 U/L (0-35); AST (SGOT) 21 U/L (14-36); Albumin 2.3 g/dl (3.5-5.0); Alkaline Phosphatase 82 U/L (38-126); Blood Urea Nitrogen 14 mg/dl (7-17); Calcium 8.1 mg/dl (8.4-10.2); Carbon Dioxide 21 mmol/L (22-30); Chloride 110 mmol/L (98-107); Estimated Creatinine Clearance 42 ml/min; Glucose 80 mg/dl (70-99); Potassium 3.9 mmol/L (3.5-5.1); Sodium 141 mmol/L (135-145); Total Bilirubin 0.2 mg/dl (0.2-1.3); Total Protein 4.7 g/dl (6.3-8.2); eGFR 57.66
[2024-05-12 09:30] LABS: CEA 6.51 ng/ml
[2024-05-12] MEDS: PROTONIX 40 MG PO (09:34)
--- NOTE | 2024-05-12 11:23 | W.PN.CRS1 ---
Today's Communication / Plan
-
low residue
discharge as per primary team
Assessment/Plan
-
Assessment: 79-year-old female with a recent iliac reversal presents to the ER after having abdominal pain and episodes of rectal bleeding at home found to have a hemoglobin of 4.8, Cardiac, and blood pressure of 50s over 30s.
05/06- K centra, 2 units PRBCs
05/07- hgb 7.1, 1 more PRBCs
05/09- 1 PRBCs 4 units total
Plan:
-Continue low residue diet.
-OK for discharge from surgery standpoint. I reviewed diet and follow-up.
Subjective Data
Subjective Data
Date of Service: May 12, 2024
She feels better today and wants to go home. She has less gas and she is tolerating a low residue diet. There has been no bleeding since restarting Eliquis.
Objective Data
-
Vital Signs
Temp Pulse Resp BP Pulse Ox
97.8 F 60 17 110/48 98
05/12/24 07:45 05/12/24 07:45 05/12/24 07:45 05/12/24 07:45 05/12/24 07:45
Intake & Output
05/11/24 05/12/24 05/13/24
06:59 06:59 06:59
Intake Total 720 / 720 1380 / 1380
Balance 720 / 720 1380 / 1380
Intake:
Oral fluids 720 / 720 1380 / 1380
IV fluids (Total) 0 / 0
IV piggybacks 0 / 0
Other:
Number of approximated MODERATE 1 3
amounts of urine
How many times incontinent 3
MODERATE amount urine
Lab Results
05/12/24 06:36
05/12/24 06:36
Physical Exam
-
General: No Acute Distress
Abdomen: Soft, Non Distended and Non Tender
Extremities: No Edema
[2024-05-12 11:27] VITALS: BP 107/48
--- NOTE | 2024-05-12 12:52 | CM ---
Pt seen bedside.
Discussed d/c today and rec. of HH. Pt cont. 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
Per pt, her sister will transport at d/c
IMM reviewed, pt given copy. Copy placed in chart
No other needs identified at this time
Plan: Home no needs
--- NOTE | 2024-05-12 13:09 | W.DCSUMMARY ---
Documented by User: Jonny Pandya DO, Resident 05/12/24 13:36
Discharge Summary
Discharge Data
Date of Admission: 05/06/24
Date of Discharge: 05/12/24
-
Pending Results: No
Hospital Course
Discharging Physician : Jose Pandya
Disposition : Home
Primary care physician : Dr. Willie Ryan
Principal Discharge diagnosis : Acute GI bleed/hemorrhagic shock
Chronic Discharge diagnosis : Atrial fibrillation on Eliquis, rectal cancer, single-vessel coronary disease, chronic kidney disease, severe aortic stenosis, chronic heart failure preserved ejection fraction, hypothyroidism, depression, abdominal
ileus, acute on chronic anemia, fluid retention
Hospital Course : 79-year-old female with a past medical history of paroxysmal atrial fibrillation on Eliquis, rectal cancer status post resection and chemoradiation with ileostomy creation and reversal of ileostomy presents to the emergency
department for rectal bleeding and diarrhea and a suspected acute GI bleed. On presentation to the ED she had a hemoglobin of 4.8. She received 3 units of packed red blood cells and 1 PCC and was admitted for further workup and management. Patient
was also started on IV antibiotics, she received antibiotics for 2 days total which were then discontinued as patient had no source of infection, white count was within normal limits and she was afebrile. During her stay patient was complaining of
cramping and gas pain, she was started on Bentyl and simethicone for this which she reports helped. She also was passing flatus and watery bowel movements throughout her stay. As her abdomen was becoming more and more distended, colorectal surgery
ordered abdominal imaging. Abdominal x-ray demonstrated findings suggestive of ileus, CT abdomen pelvis with oral contrast demonstrated no obstruction or leak of anastomosis. As patient had ileus, she was placed on bowel rest kept n.p.o.,
eventually she was able to tolerate clear liquid diet, was advanced to full liquids and eventually to low residue. Patient tolerated low residue diet well. Her pants cutter was also consulted who recommended restarting her Eliquis as there is no
longer any concern for GI bleed. Her her hemoglobin was stable and she was restarted on Eliquis with no signs of bleeding. We also stopped her aspirin per cardiology wishes, she will just take Eliquis for the time being. Her furosemide was
changed to as needed for weight gain of 3 kg overnight or 5 in 1 week. She was given a new prescription for simethicone. Patient was given a prescription for repeat CBC and BMP which she will get 3 days after discharge and results will be forwarded
to her primary care physician. Patient was offered home visiting nurse and physical therapy, she refused as she was not interested in having anybody come to her house or working with them. She states she is fully capable of taking care of herself
and doing her own exercises. Her wishes were honored and she was discharged home with follow-up with her primary care physician within 1 week, her pants cutter in 2 to 4 weeks and colorectal surgery in 2 to 3 weeks.
Important imaging findings :
05/06/2024 CT abdomen pelvis with and without IV contrast, impression:
No evidence of acute GI bleed. Postoperative changes of prior partial bowel resection. There is a 4.8 x 3.0 cm slightly ill-defined likely developing collection in the presacral space which may be a postoperative collection.
Similar appearance of the large cystic lesion extending from the left adnexa into the left retroperitoneal/anterior pararenal space with associated mass effect. There is apparent enhancement along the anterior inferior aspect of the lesion
suspicious for cystic ovarian neoplasm.
Bilateral adrenal lesions, similar in appearance to prior.
Infrarenal abdominal aortic aneurysm which is unchanged from prior and measuring up to 3.5 cm.
There is circumferential wall beginning of the urinary bladder which may be secondary to underdistention however can be seen with cystitis.
05/08/2024 abdominal x-ray, impression:
Findings as above which are most suggestive of ileus, slightly improved as compared with previous examination.
05/08/2024 CT abdomen pelvis with IV and oral contrast, impression:
Postoperative changes of ileostomy reversal with anastomotic line in the right mid abdomen. There is a 1.7 x 1.3 cm fluid-filled focus along the anastomotic line which may represent focal collection. There is no contrast or gas present to suggest
leak.
There is increased small volume ascites with borderline mild gaseous distention of the colon and small bowel, favored to represent ileus. Contrast extends into the proximal colon.
Unchanged large cystic lesion extending from the left adnexa into the left retroperitoneal/anterior pararenal space with associated mass effect.
Decreased size of the fluid within the presacral space measuring 3.6 x 2.6 cm, previously 4.8 x 3.0 cm.
Procedure findings :
No procedures
Discharge Plan
-
Patient Disposition: Home (Routine Discharge)
Discharge Diagnosis/Procedures: acute GI bleed/hemorraghic shock
Condition: Good
Diet: Low Residue
Activity: As tolerated
Driving Restrictions: As prior to admission
Bathing Restrictions: None
Specialty Instructions: Weigh Daily- Call MD for wt gain/loss 3 lbs overnight/5 lbs in 1 week
Activity Restrictions/Additional Instructions:
Please get a CBC drawn in 3 days and follow-up on the results with your primary care physician Dr. Ryan. Please see Dr. Ryan within 1 week of discharge.
Please follow-up with colorectal surgery, Dr. Tenorio in 3 to 4 weeks of discharge.
Please follow-up with Dr. Mckeon in 2 to 4 weeks of discharge for ablation.
Referrals:
Jose Alfredo Tenorio MD [Active] - in three to four weeks
Joao Mckeon MD [Active] - in two to four weeks
Willie Ryan, [Family Provider] - in less than 1 week
Additional Discharge Medication Instructions: Please call Dr mckeon's office for instructions on your potassium frequency and dose
Stop aspirin while on Eliquis
Simethicone 80 mg by mouth 4 times a day for gas pain
Furosemide changed to 20 mg by mouth as needed instructions:
Take 1 furosemide by mouth if more than 3 pounds weight gain overnight. If more than 5 pound weight gain in 1 week. Or if extreme lower extremity swelling is noted.
Prescriptions:
New
simethicone 80 mg Tablet,Chewable
80 mg PO QID Qty: 90 0RF
furosemide [Lasix] 20 mg tablet
20 mg PO PRN PRN (Reason: Weight gain) Qty: 30 0RF
Rx Instructions:
PRN for weight gain more than 3 lb overnight or more than 5 lb in 1 week or LE swelling
Continued
cyanocobalamin (vitamin B-12) [Vitamin B-12] 1,000 mcg Tablet
1,000 mcg PO DAILY@1300 Qty: 0
vitamin B complex Tablet
1 tab PO DAILY@1300
biotin 10,000 mcg Capsule
10,000 mcg PO DAILY@1300
methimazole 10 mg Tablet
5 mg PO DAILY
ascorbic acid (vitamin C) [Vitamin C] 1,000 mg Tablet
1,000 mg PO DAILY@1300
quercetin 500 mg Capsule
500 mg PO DAILY@1300
BoneUp 333 mg-8.3 mcg-116.7 mg Capsule
2 cap PO DAILY
Collagen 1500 Plus C 500 mg-800 mcg- 50 mg Capsule
2 cap PO DAILY@1300
amiodarone 200 mg tablet
200 mg PO DAILY Qty: 0 0RF
Eliquis 5 mg tablet
5 mg PO BID Qty: 0 0RF
acetaminophen 325 mg tablet
650 mg PO Q4HPRN PRN (Reason: mild pain) Qty: 1 0RF
oxycodone 5 mg tablet
5 mg PO Q4HPRN PRN (Reason: breakthrough/severe pain) Qty: 15 0RF
therapeutic multivitamin Tablet
1 tab PO DAILY
potassium chloride 10 mEq Tablet Extended Release
10 meq PO UD
Patient Comments:
05/06/24: Patient did not want to confirm frequency of this medication, 'just check the records'.
Rx Instructions:
on 05/01/24 take 40meq qpm, then 05/02/24 40meq daily and 20meq qpm, then 10/27/24 20meq bid then recheck labs on saturday05/04/24 (normal dose 10meq q48h)
BoneUp 333 mg-8.3 mcg-116.7 mg Capsule
1 cap PO HS
midodrine 5 mg tablet
5 mg PO TID
Patient Comments:
ecw on 04/28/24 suggest reduce to 2.5mg bid
Discontinued
aspirin 81 mg Capsule
81 mg PO DAILY
furosemide 20 mg Tablet
20 mg PO Q48H
Patient Comments:
05/06/24: Patient did not want to confirm frequency of this medication, 'just check the records'.
Discharge Orders:
Discharge Patient (As Directed); Ordered 05/12/24
Ordered By: Jonny Pandya
Discharge Date and Time
Discharge Date/Time: 05/12/24 13:17
Print Language: DUTCH

Documented by User: Luis Garcia MD 05/12/24 15:36
Discharge Summary
Discharge Data
Date of Admission: 05/06/24
Date of Discharge: 05/12/24
Discharge Plan
-
Patient Disposition: Home (Routine Discharge)
Discharge Diagnosis/Procedures: acute GI bleed/hemorraghic shock
Condition: Good
Diet: Low Residue
Activity: As tolerated
Driving Restrictions: As prior to admission
Bathing Restrictions: None
Specialty Instructions: Weigh Daily- Call MD for wt gain/loss 3 lbs overnight/5 lbs in 1 week
Activity Restrictions/Additional Instructions:
Please get a CBC drawn in 3 days and follow-up on the results with your primary care physician Dr. Ryan. Please see Dr. Ryan within 1 week of discharge.
Please follow-up with colorectal surgery, Dr. Tenorio in 3 to 4 weeks of discharge.
Please follow-up with Dr. Mckeon in 2 to 4 weeks of discharge for ablation.
Referrals:
Jose Alfredo Tenorio MD [Active] - in three to four weeks
Joao Mckeon MD [Active] - in two to four weeks
Willie Ryan DO [Family Provider] - in less than 1 week
Additional Discharge Medication Instructions: Please call Dr mckeon's office for instructions on your potassium frequency and dose
Stop aspirin while on Eliquis
Simethicone 80 mg by mouth 4 times a day for gas pain
Furosemide changed to 20 mg by mouth as needed instructions:
Take 1 furosemide by mouth if more than 3 pounds weight gain overnight. If more than 5 pound weight gain in 1 week. Or if extreme lower extremity swelling is noted.
Prescriptions:
New
simethicone 80 mg Tablet,Chewable
80 mg PO QID Qty: 90 0RF
furosemide [Lasix] 20 mg tablet
20 mg PO PRN PRN (Reason: Weight gain) Qty: 30 0RF
Rx Instructions:
PRN for weight gain more than 3 lb overnight or more than 5 lb in 1 week or LE swelling
Continued
cyanocobalamin (vitamin B-12) [Vitamin B-12] 1,000 mcg Tablet
1,000 mcg PO DAILY@1300 Qty: 0
vitamin B complex Tablet
1 tab PO DAILY@1300
biotin 10,000 mcg Capsule
10,000 mcg PO DAILY@1300
methimazole 10 mg Tablet
5 mg PO DAILY
ascorbic acid (vitamin C) [Vitamin C] 1,000 mg Tablet
1,000 mg PO DAILY@1300
quercetin 500 mg Capsule
500 mg PO DAILY@1300
BoneUp 333 mg-8.3 mcg-116.7 mg Capsule
2 cap PO DAILY
Collagen 1500 Plus C 500 mg-800 mcg- 50 mg Capsule
2 cap PO DAILY@1300
amiodarone 200 mg tablet
200 mg PO DAILY Qty: 0 0RF
Eliquis 5 mg tablet
5 mg PO BID Qty: 0 0RF
acetaminophen 325 mg tablet
650 mg PO Q4HPRN PRN (Reason: mild pain) Qty: 1 0RF
oxycodone 5 mg tablet
5 mg PO Q4HPRN PRN (Reason: breakthrough/severe pain) Qty: 15 0RF
therapeutic multivitamin Tablet
1 tab PO DAILY
potassium chloride 10 mEq Tablet Extended Release
10 meq PO UD
Patient Comments:
05/06/24: Patient did not want to confirm frequency of this medication, 'just check the records'.
Rx Instructions:
on 05/01/24 take 40meq qpm, then 05/02/24 40meq daily and 20meq qpm, then 05/03/24 20meq bid then recheck labs on saturday05/04/24 (normal dose 10meq q48h)
BoneUp 333 mg-8.3 mcg-116.7 mg Capsule
1 cap PO HS
midodrine 5 mg tablet
5 mg PO TID
Patient Comments:
ecw on 04/28/24 suggest reduce to 2.5mg bid
Discontinued
aspirin 81 mg Capsule
81 mg PO DAILY
furosemide 20 mg Tablet
20 mg PO Q48H
Patient Comments:
05/06/24: Patient did not want to confirm frequency of this medication, 'just check the records'.
Discharge Orders:
Discharge Patient (As Directed); Ordered 05/12/24
Ordered By: Jonny Pandya
Discharge Date and Time
Discharge Date/Time: 05/12/24 13:17
Print Language: DUTCH
== END 2024-05-12 13:17 | disposition home or self-care (01) | DRG 919 ==
LOC: 4 WEST ACU 16:20
PROVIDERS: Internal Medicine Cardiovascular Disease; Nurse Practitioner Adult Health; Nurse Practitioner Primary Care; Physician Assistant Medical; ADMITTING PHYSICIAN Internal Medicine; ATTENDING PHYSICIAN Hospitalist; CONSULT PHYSICIAN Internal Medicine Critical Care Medicine; CONSULT PHYSICIAN Internal Medicine Gastroenterology; CONSULT PHYSICIAN Surgery; EMERGENCY PHYSICIAN Student in an Organized Health Care Education/Training Program; FAMILY PHYSICIAN Family Medicine
PROC: 30233N1 Transfusion of Nonautologous Red Blood Cells into Peripheral Vein, Percutaneous Approach (ICD-10-PCS; 2024-05-06)
PROC: 30283B1 Transfusion of Nonautologous 4-Factor Prothrombin Complex Concentrate into Vein, Percutaneous Approach (ICD-10-PCS; 2024-05-06)
DX: K91.840 Postprocedural hemorrhage of a digestive system organ or structure following a digestive system procedure (principal); R57.8 Other shock; I50.32 Chronic diastolic (congestive) heart failure; D62 Acute posthemorrhagic anemia; K56.7 Ileus, unspecified; I95.9 Hypotension, unspecified; I48.0 Paroxysmal atrial fibrillation; I35.2 Nonrheumatic aortic (valve) stenosis with insufficiency; E03.9 Hypothyroidism, unspecified; F32.A Depression, unspecified; I25.10 Atherosclerotic heart disease of native coronary artery without angina pectoris; N18.31 Chronic kidney disease, stage 3a; I44.7 Left bundle-branch block, unspecified; E86.1 Hypovolemia; D63.1 Anemia in chronic kidney disease; I71.43 Infrarenal abdominal aortic aneurysm, without rupture; Y83.8 Other surgical procedures as the cause of abnormal reaction of the patient, or of later complication, without mention of misadventure at the time of the procedure; Z95.2 Presence of prosthetic heart valve; Z92.3 Personal history of irradiation; Z92.21 Personal history of antineoplastic chemotherapy; Z88.0 Allergy status to penicillin; Z87.891 Personal history of nicotine dependence; Z85.048 Personal history of other malignant neoplasm of rectum, rectosigmoid junction, and anus; Z79.899 Other long term (current) drug therapy; Z79.01 Long term (current) use of anticoagulants; Z98.0 Intestinal bypass and anastomosis status
CPT/HCPCS: 36430; 74019; 74174; 74177; 80053; 82378; 83605; 83690; 84484; 85014; 85018; 85025; 85027; 85610; 85730; 86850; 86900; 86901; 86920; 87040; 93005; 96361; 96374; 97116; 97162; 97166; 99291; J7168; P9016; Q9967

== ENCOUNTER → 2024-05-15 15:31 | Outpatient (REF) | payer MEDICARE, SELFPAY ==
[2024-05-15 17:52] LABS: % Basophils 0.6 % (0-2); % Eosinophils 0.5 % (0-6); % Lymphocytes 5.8 % (20.5-51.1); % Monocytes 5.8 % (1.7-9.3); % Neutrophils 86.3 % (42.2-75.2); Absolute Basophils 0.1 10^3/uL (0-0.2); Absolute Immature Granulocytes 0.1 10^3/uL (0-0.05); Absolute Lymphocytes 0.5 10^3/uL (1.2-3.4); Absolute Monocytes 0.5 10^3/uL (0.1-0.6); Hematocrit 28.2 % (37.0-47.0); Hemoglobin 9.2 g/dL (12.0-16.0); Mean Corp Hgb Conc. 32.6 g/dL (33.0-37.0); Mean Corpuscular Hgb 30.3 pg (27.0-31.0); Mean Corpuscular Volume 92.8 fL (81.0-99.0); Mean Platelet Volume 10.2 fL (7.4-10.4); Nucleated Red Blood Cells % 0 %; Platelet Count 376 10^3/uL (130-400); Red Blood Cell Count 3.04 10^6/uL (4.20-5.40); Red Cell Dist. Width 16.2 % (11.5-14.5); White Blood Cell Count 8.1 10^3/uL (4.8-10.8)
[2024-05-15 18:03] LABS: ALT (SGPT) 15 U/L (0-35); AST (SGOT) 26 U/L (14-36); Albumin 3.2 g/dl (3.5-5.0); Alkaline Phosphatase 84 U/L (38-126); Blood Urea Nitrogen 17 mg/dl (7-17); Carbon Dioxide 29 mmol/L (22-30); Chloride 105 mmol/L (98-107); Glucose 102 mg/dl (70-99); Potassium 4.5 mmol/L (3.5-5.1); Sodium 144 mmol/L (135-145); Total Bilirubin 0.5 mg/dl (0.2-1.3); Total Protein 6.2 g/dl (6.3-8.2); eGFR 51.43
[2024-05-15 18:04] LABS: LDH 219 U/L (120-246)
== END ==
LOC: REG 15:31
PROVIDERS: FAMILY PHYSICIAN Family Medicine; OTHER PHYSICIAN Internal Medicine Hematology & Oncology; OTHER PHYSICIAN Surgery; REFERRING PHYSICIAN Internal Medicine Cardiovascular Disease
DX: D62 Acute posthemorrhagic anemia (principal); K92.2 Gastrointestinal hemorrhage, unspecified; R60.0 Localized edema; I48.19 Other persistent atrial fibrillation; D64.9 Anemia, unspecified
CPT/HCPCS: 36415; 80053; 83010; 83615; 85025; 86880

== ENCOUNTER 2024-05-22 14:02 | Inpatient (IN) | payer MEDICARE, SELFPAY ==
[2024-05-22] VITALS (20 sets, daily range): BP systolic 94–137; BP diastolic 43–64; BMI 26.2; BMI 24.7
--- NOTE | 2024-05-22 11:38 | EDRN ---
Guerda Taylor PA in room w/pt at this time.
[2024-05-22 12:17] LABS: % Basophils 0.7 % (0-2); % Immature Granulocytes 0.8 % (0-0.5); % Lymphocytes 7.3 % (20.5-51.1); % Monocytes 5.5 % (1.7-9.3); % Neutrophils 84.7 % (42.2-75.2); Absolute Eosinophils 0.1 10^3/uL (0-0.7); Absolute Immature Granulocytes 0.1 10^3/uL (0-0.05); Absolute Lymphocytes 0.4 10^3/uL (1.2-3.4); Absolute Monocytes 0.3 10^3/uL (0.1-0.6); Absolute Neutrophils 5.1 10^3/uL (1.4-6.5); Hematocrit 22.7 % (37.0-47.0); Hemoglobin 7.4 g/dL (12.0-16.0); Mean Corp Hgb Conc. 32.6 g/dL (33.0-37.0); Mean Corpuscular Hgb 30.2 pg (27.0-31.0); Mean Corpuscular Volume 92.7 fL (81.0-99.0); Mean Platelet Volume 9.8 fL (7.4-10.4); Nucleated Red Blood Cells % 0 %; Platelet Count 311 10^3/uL (130-400); Red Blood Cell Count 2.45 10^6/uL (4.20-5.40); Red Cell Dist. Width 16.8 % (11.5-14.5)
--- NOTE | 2024-05-22 12:19 | ED.GENMED ---
History of Present Illness
General
Chief Complaint: Rectal Bleeding
Source: patient, records and physician
Time Seen by Provider: 05/22/24 11:24
History of Present Illness
History of Present Illness:
79-year-old female with past medical history of aortic stenosis, atrial fibrillation, CHF, rectal cancer status post ileostomy status post reversal of the ileostomy, recent admission here at this facility for GI bleeding with a hemoglobin of less
than 5 presenting back to the department at the request of colorectal surgery after patient had contacted their office stating she has had 6 bloody bowel movements since midnight last night with her last being around 10 AM. Patient states that
there was no stool and only blood and clots. Patient states that this is very similar to when she was previously admitted about 2 weeks ago. She denies any abdominal pain different than her usual since reversal of her ileostomy and continues to
endorse bilateral lower extremity edema which is not any different either. Patient did take her Eliquis this morning, notes that she was discontinued off of her aspirin when she was admitted here previously.
Past History
Past History
ED Past Medical History: Arrthythmia, Cancer, CHF, Valvular disease, Hypothyroidism and Other (Aortic stenosis)
ED Past Surgical History: Appendectomy, Tonsilectomy and Other (Laparoscopy with cyst aspiration)
Social History
Tobacco: Former smoker
Alcohol: None
Drug: None
Personal: Single
Living: with family
Review of Systems
Review of Systems
All Other Systems: ROS reviewed and negative except as documented in HPI and ROS
Phy Exam
Physical Exam
Physical Exam:
GENERAL: Alert , in no apparent distress
EYE: clear conjunctiva b/l
HEAD: NCAT
ENT: mmm.
CARDIAC: Regular rate and rhythm .
LUNGS: Clear breath sounds bilaterally, no acute respiratory distress, no wheezes/rales/rhonchi
ABDOMEN: Soft, without focal tenderness, no r/g, no cvat
RECTAL EXAM: Chapperoned by ED nurse KI: large maroon colored blood, no stool, small clots
NEUROLOGICAL: Alert and oriented
SKIN: Warm and dry, skin intact.
MUSCULOSKELETAL: well perfused.
PSYCH: Normal and appropriate interaction.
Scores
Heart Failure Risk
Heart Failure Risk Score: Not Applicable
Heart Score for Chest Pain Patients
STEMI patient?: Not applicable
Withdrawal Assessment of Alcohol
Withdrawal Assessment Completed?: Not applicable
Course
Orders/Labs/Results
Orders:
Orders
05/22/24 11:49
CT Angio Abd/Pelvis w/wo IV [CT Abd/pelvis Angio W/wo Iv] Urgent
Comment:
Reason For Exam: multiple bloodied bowel movements, hx GI bleed
05/22/24 12:03
Type+Screen Urgent
Basic Metabolic Panel Urgent
Complete Blood Count/With Diff Urgent
PTT Urgent
Prothrombin Time Urgent
05/22/24 12:19
Blood Bank Products [* Blood Bank Products] Urgent
Blood Bank Products: *Packed RBC Leuko(PRBC's)
Quantity: 1
Transfuse Today: Yes
Reason: Anemia
05/22/24 12:20
Electrocardiogram (*1) Urgent
Reason for Study: Atrial Fibrillation
EKG- Treatment ONCE
05/22/24 12:26
Prothrombin Complex(Pcc),Human [Kcentra] 1,580 unit Empty Viaflex Container 100 ml [Viaflex Empty Container] 60 ml IV NOW
Does patient have a dx of serious acute active bleeding?: Yes
Does patient have prior history of HIT?: No
05/22/24 12:57
Ccohg-Ooqk-Ecljwxo Urgent
Potassium Urgent
05/22/24 13:47
Admit/Transfer Patient As Directed
Co-Sign Provider:
Level of Care: Inpatient admission
Assign to:: IMU- Intermediate Care
Physician / Group: Rachel
Diagnosis: Rectal Bleeding
Reason for Hospitalization: GI Bleed
Expected length of stay greater than two midnights?: Yes
ELOS- Estimated Length of Stay in days: 4
I certify the patient meets the requirements for IP care: Yes
PRN Pain Medication Management As Directed
May give lesser potent ordered pain med per pt: Yes
preference::
Protocol:: Medication orders for pain may be administered in a
manner that supports deferring to patient preference
when the pt is:
- Requesting an ordered lesser potent pain medication.
Least to most potent pain medications are defined
as: acetaminophen < NSAID < tramadol < opioids
(morphine, oxycodone, hydromorphone).
- Requesting a lesser dose of the same medication IF
ORDERED.
- Requesting a less intrusive route of administration
if both routes are prescribed by the provider (PO <
IV).
05/22/24 13:48
Code Status As Directed
Resuscitation Status: Do not resuscitate
Reached after discussion with pt or family/Healthcare POA: Yes
DNR Bracelet Application ONCE
05/22/24 13:49
ColoRectal Surgery Consult Routine
Consulting Provider: Baljinder Austin
Was physician already notified: Yes
GASTROINTESTINAL CONSULT Routine
Consulting Provider: Kami Marie
Was physician already notified: Yes
05/22/24 18:00
H&H Q6H
05/23/24 00:00
H&H Q6H
05/23/24 06:00
H&H Q6H
05/23/24 12:00
H&H Q6H
Abnormal Lab Results
05/22/24 05/22/24
12:03 12:57
RBC 2.45 L 10^6/uL
(4.20-5.40)
Hgb 7.4 L g/dL
(12.0-16.0)
Hct 22.7 L %
(37.0-47.0)
MCHC 32.6 L g/dL
(33.0-37.0)
RDW 16.8 H %
(11.5-14.5)
Abs Immat Gran (auto) 0.1 H 10^3/uL
(0-0.05)
Absolute Lymphs (auto) 0.4 L 10^3/uL
(1.2-3.4)
Immature Gran % 0.8 H %
(0-0.5)
Neutrophils % 84.7 H %
(42.2-75.2)
Lymphocytes % 7.3 L %
(20.5-51.1)
PT 22.2 H Sec
(11.4-14.6)
APTT 52.6 H Sec
(23.4-35.0)
BUN 25 H mg/dl
(7-17)
Total Protein 5.5 L g/dl
(6.3-8.2)
Albumin 2.8 L g/dl
(3.5-5.0)
Crossmatch IS Only See Detail
05/22/24 12:03
05/22/24 12:57
Vital Signs
Initial and Last Documented VS:
Initial Vital Signs
Temp Pulse Resp BP Pulse Ox
97.3 F 84 16 125/64 98
05/22/24 11:03 05/22/24 11:03 05/22/24 11:03 05/22/24 11:03 05/22/24 11:03
Last Documented Vital Signs
Temp Pulse Resp BP Pulse Ox
98.6 F 68 18 137/52 100
05/22/24 14:16 05/22/24 14:16 05/22/24 14:16 05/22/24 14:16 05/22/24 14:16
Sole Polisher consulted with Physician
Sole Polisher consulted with physician?: Yes
Name of Physician Consulted: Noh
MDM/Problems Addressed
Differential Diagnosis Includes:
Recurring lower GI bleed, anemia, less concern for infectious etiology such as diverticulitis
MDM/Problems Addressed:
79-year-old female presenting back to the emergency department at request of colorectal surgery after she had contacted the office noting sick bloodied bowel movements since midnight. Arrives to the ER hemodynamically stable although still appears
quite pale. Notes that she had a hemoglobin checked at her cardiology office about a week or so ago and believes her hemoglobin was around 9 at that time. Patient did take her Eliquis this morning. Labs ordered. Will place 2 large-bore IVs as
patient is at risk for decompensation. Will obtain stat CTA for further evaluation and possible IR intervention if localized source of bleeding is identified. Considering transfusing and reversing patient's anticoagulant. Plan for admission
Chronic conditions affecting care: Cancer and Other (Previous lower GI bleed)
Acute Exacerbation and/or Progression of Chronic Illness: Other (Lower GI bleed)
*Radiology
Radiology exam reviewed: radiology read reviewed
*Pulse Oximetry
Patient hypoxic: no
*Critical Care Note
Total Time (30-74mins, 75-104mins- exclusive of procedures): 30
comment:
Critical care statement: A total of 30 minutes of critical care time was provided for this patient. This includes management of unstable vital signs, evaluation of the patient at bedside, reviewing the patient's pertinent medical records, discussion
with consultants, review of old EKGs and review of pertinent medical records. This time with separate from time utilized to perform the aforementioned documented procedures
Data Reviewed
Review of Other/Old Records Reveals: Labs, Records and Discharge Summary
Source: patient and records
Patient Management
Discussion with other providers: Hospitalist and Garment Sewing Machine Operator
Escalation/DeEscalation of care consider admission/obs:
12:31 PM - Patient's hemoglobin 7.4 but this is down from 9.2 a week ago. Normal platelets and white blood cell count. 1 unit packed red blood cells ordered for transfusion. Kcentra ordered to reverse Eliquis. I notified the colorectal team as
well as GI. Awaiting CTA results
12:53 PM - GI requesting patient not be given KCentra as she is currently stable. Recommends only giving it if patient starts to become unstable. Agrees with remaining tx plan and will consult. Awaiting CTA. Hospitalist team updated and will admit.
1302 - CT scan findings noted. GI and colorectal aware. Hospitalist team accepts for continued evaluation and treatment. Differ initiation of KCentra to hospitalist
ED Attending Note
-
Portions of this chart may have been created with voice recognition software.� Occasional wrong word or��sound alike� substitutions may have occurred due to the inherent limitations of voice recognition software.
Discharge Plan
Departure
Patient Disposition: Admit
Date of Disposition: 05/22/24
Time of Disposition: 12:32
Presentation/result/management discussed w/ accepting MD/DO: Hospitalist
Discharge Problem:
Acute gastrointestinal bleeding, Anemia
Interventions
Interventions:
*Risk Screen - Suicide Last Done: 05/22/24 12:00
*General Assessment Last Done: 05/22/24 12:00
*Neglect/Abuse Screening Last Done: 05/22/24 12:00
ED- Fall Risk Assessment Last Done: 05/22/24 12:00
*ED COVID-19 Vaccine History Last Done: 05/22/24 12:00
QS-Ehvamt-Otjdwonozy Assessment Last Done: 05/22/24 13:00
ED- Cardiac Assessment Last Done: 05/22/24 13:00
ED- Pulmonary Assessment Last Done: 05/22/24 13:00
[2024-05-22 12:27] LABS: INR 1.92; PT 22.2 Sec (11.4-14.6)
[2024-05-22 12:28] LABS: APTT 52.6 Sec (23.4-35.0)
[2024-05-22 12:42] LABS: Blood Urea Nitrogen 25 mg/dl (7-17); Calcium 9.3 mg/dl (8.4-10.2); Carbon Dioxide 26 mmol/L (22-30); Chloride 106 mmol/L (98-107); Estimated Creatinine Clearance 37 ml/min; Glucose 85 mg/dl (70-99); Sodium 140 mmol/L (135-145); eGFR 57.66
--- NOTE | 2024-05-22 12:48 | EDRN ---
Cally received and about to hang it when Guerda MARR said not to hang it or give it per GI consult.
--- NOTE | 2024-05-22 13:11 | HPS.HSE ---
Family Physician
-
Family Physician:
Chief Complaint
-
Rectal Bleeding
History of Present Illness
Patient is a 79 y/o female past medical history of paroxysmal atrial fibrillation on anticoagulation, rectal cancer with recent ileostomy reversal on 04/15/2024 and GI bleed earlier this morning who presents with rectal bleeding. Patient awoke at
12:30AM with rectal bleeding described as bright red blood with clots. She reports about 6 episodes of bleeding with most recent being just prior to my evaluation. She reports her abdomen has been sore since the ileostomy reversal but denies any
increased pain. She denies chest pain, palpitations, shortness of breath or dizziness.
Medical History
Past Medical History
Past Medical History: Reports Other
Additional Past Medical History:
Rectal Cancer Stage IIIB s/p Chemotherapy/Radiation, and Resection with Diverting Ileostomy and Subsequent Reversal
Single Vessel Coronary Artery Disease
Paroxysmal Atrial Fibrillation
Valvular Heart Disease: Severe Aortic Stenosis s/p TAVR, Moderate Mitral Regurg, Mild/Moderate Tricuspid Regurg
Chronic HFpEF
Hyperthyroidism
Depression
Past Surgical History: Reports Other
Additional Past Surgical History:
Robotic Left Anterior Resection with Diverting Loop Ileostomy and Subsequent Reversal
Tonsillectomy
Appendectomy
Social History
Tobacco: Former Smoker (1ppd x 48 years)
Alcohol: None
Drug: None
Family History
Family History: Not pertinent
Allergies / Home Medications
Allergies reflects when Allergies were last updated in [facility].
Home Medications with original date entered in [facility]
Allergy/Medication List:
Allergies
Allergy/AdvReac Type Severity Reaction Status Date / Time
metoprolol Allergy Very low Verified 05/22/24 11:05
BP with
even low
doses of
metoprolol
Penicillins Allergy Hives Verified 05/22/24 11:05
Home Medications
cyanocobalamin (vitamin B-12) 1,000 mcg tablet (Vitamin B-12) 1,000 mcg PO DAILY@1300 Supplement ##0 09/25/23
vitamin B complex 1 tab PO DAILY@1300 Supplement 09/25/23
ascorbic acid (vitamin C) 1,000 mg tablet (Vitamin C) 1,000 mg PO DAILY@1300 Supplement 02/04/24
biotin 10,000 mcg capsule 10,000 mcg PO DAILY@1300 Supplement 02/04/24
calcium 333 mg-D3 8.3 mcg-magnesium ox 116.7 oj-F-G-minerals capsule (BoneUp) 2 cap PO DAILY Supplement 02/04/24
methimazole 10 mg tablet 5 mg PO DAILY Thyroid 02/04/24
quercetin 500 mg capsule 500 mg PO DAILY@1300 Supplement 02/04/24
collagen,hydrolysate 500 mg-biotin 800 mcg-ascorbic acid 50 mg capsule (Collagen 1500 Plus C) 2 cap PO DAILY@1300 Supplement 04/10/24
acetaminophen 325 mg tablet 650 mg (2 x 325 mg) PO Q4HPRN PRN mild pain #1 tab 04/26/24
amiodarone 200 mg tablet 200 mg PO DAILY Arrhythmia #0 tabs 04/26/24
apixaban 5 mg tablet (Eliquis) 5 mg PO BID Blood clot prevention/tx #0 tabs 04/26/24
calcium 333 mg-D3 8.3 mcg-magnesium ox 116.7 cn-R-A-minerals capsule (BoneUp) 1 cap PO HS Supplement 05/06/24
potassium chloride 10 mEq tablet,extended release 10 meq PO Q48H Electrolyte Repletion 05/06/24
therapeutic multivitamin 1 tab PO DAILY Supplement 05/06/24
furosemide 20 mg tablet (Lasix) 20 mg PO DAILYPRN PRN Weight gain 05/22/24
loperamide 2 mg tablet 2 mg PO BIDPRN PRN diarrhea 05/22/24
simethicone 80 mg chewable tablet 80 mg PO QIDPRN PRN gas 05/22/24
Review of Systems
-
A 12 point ROS was completed and negative except as noted: Yes
Constitutional: Denies Fever or Chills
Respiratory: Denies Cough or Trouble Breathing
Cardiac: Denies Chest Pain or Palpitations
Abdomen/GI: Reports See HPI
Physical Exam
Vital Signs
Vital Signs
Temp Pulse Resp BP Pulse Ox
97.3 F 58 16 106/44 99
05/22/24 11:03 05/22/24 12:00 05/22/24 12:00 05/22/24 12:00 05/22/24 12:00
Physical Exam
General: Comfortable, Conversant and Other (Appears pale)
HEENT: Anicteric and Moist mucous membranes
Respiratory: Clear and Non Labored Respirations
Cardiac: S1/S2 and Regular Rhythm
GI: Soft, Non Tender, Non Distended and Normal Bowel Sounds
Musculoskeletal: No Clubbing, No Cyanosis and Other (+2 pitting edema bilateral lower extremities)
Skin: Warm and Dry
Neuro: Awake, Alert, Oriented and Nonfocal/grossly intact
Psych: Calm
Laboratory Results
-
05/22/24 12:03
Laboratory Results
PT 22.2 Sec (11.4-14.6) H 05/22/24 12:03
INR 1.92 05/22/24 12:03
APTT 52.6 Sec (23.4-35.0) H 05/22/24 12:03
Total Bilirubin Cancelled 05/22/24 12:03
AST Cancelled 05/22/24 12:03
ALT Cancelled 05/22/24 12:03
Alkaline Phosphatase Cancelled 05/22/24 12:03
Abd/Pelvis CT Scan:
1. Moderate amount of intraperitoneal and extraperitoneal fluid in the pelvis around a coloanal anastomosis at the site of previous rectal resection - suspicious for an anastomotic leak.
2. 2.6 cm rim-enhancing enhancing fluid collection posterior to the distal descending colon and anterior to the sacrum suspicious for a small abscess.
3. Moderate to severe diffuse thickening of the urinary bladder wall suggesting ACUTE CYSTITIS.
4. Small volume of upper abdominal ascites.
5. LARGE 15.8 cm LOCULATED FLUID COLLECTION in the LEFT LATERAL PARACOLIC GUTTER displacing small bowel and colonic loops which appears unchanged.
6. Fusiform infrarenal abdominal aortic aneurysm (3.1 cm diameter).
7. Polycystic kidney disease with a large number of simple and hemorrhagic renal cysts.
8. MILD HEPATIC CIRRHOSIS without evidence for hepatocellular carcinoma.
9. Bilateral adrenal adenomas.
10. Previous TAVR.
11. Severe bilateral facet joint arthrosis in the lower lumbar spine.
Data Reviewed
-
CT Scan: Report Reviewed by me
Lab Data: Labs Reviewed by me
Old Records: Reviewed
Impression/Plan
-
Recurrent Lower GI Bleed following recent Ileostomy Reversal
-Consult GI and Colorectal Surgery
-CTA without evidence of active bleeding
-Continue NPO/IVFs
-Give 1 unit PRBCs
-Trend H&H
Rectal Cancer Stage IIIB s/p Chemotherapy/Radiation, and Resection with Diverting Ileostomy and Subsequent Reversal
-CT scan raises concern for possible anastomotic leak and possible small abscess
-Consider empiric antibiotics - Defer decision to colorectal surgery
-Monitor for signs/symptoms of infection
Paroxysmal Atrial Fibrillation
-Hold Eliquis is setting of GI Bleed
-Continue amiodarone
Valvular Heart Disease: Severe Aortic Stenosis s/p TAVR, Moderate Mitral Regurg, Mild/Moderate Tricuspid Regurg
Chronic HFpEF
-Hold diuretics while NPO
-Monitor Is&Os and Daily Weights
Hyperthyroidism
-Continue methimazole
DVT proph: SCDs
Code Status: DNR
--- NOTE | 2024-05-22 13:20 | EDRN ---
Pt was just cleansed after incontinent of small stool w/bright red blood and clots at this time.
--- NOTE | 2024-05-22 13:21 | EDRN ---
Zainab MARR in room w/pt for hospitalist group.
[2024-05-22 13:23] LABS: ALT (SGPT) 12 U/L (0-35); AST (SGOT) 26 U/L (14-36); Albumin 2.8 g/dl (3.5-5.0); Alkaline Phosphatase 83 U/L (38-126); Direct Bilirubin 0.1 mg/dl (0.0-0.4); Potassium 4.1 mmol/L (3.5-5.1); Total Bilirubin 0.3 mg/dl (0.2-1.3); Total Protein 5.5 g/dl (6.3-8.2)
--- NOTE | 2024-05-22 13:54 | EDRN ---
Dr. Austin in to see pt and did rectal exam in room w/ Almita LAWSON.
--- NOTE | 2024-05-22 14:00 | EDRN ---
Unit #W [id number] of Leukocyte reduced RBCs started at 14:00.
--- NOTE | 2024-05-22 14:14 | EDRN ---
Dr. Ramos in room w/ pt at this time.
--- NOTE | 2024-05-22 14:26 | W.PN.UPDATE ---
Addendum entered and electronically signed by Ace Ramos MD 05/22/24 20:55:
GI consult cancelled.
Original Note:
Update Note
Progress Note Update
This is an addendum to the H&P written by Annalee Gong on 05/22/2024. Patient seen and examined independently with PA.
79-year-old female past medical history of paroxysmal atrial fibrillation on Eliquis, rectal cancer status post resection and chemoradiation with ileostomy creation and reversal of ileostomy with subsequent admission for rectal bleeding/blood loss
anemia here for significant amount of bright red blood per rectum with clots.
Hemoglobin is 7.4 from 9.2 previously. Patient hemodynamically stable. CT abdomen pelvis shows moderate amount of intraperitoneal, extraperitoneal fluid in the pelvis around coloanal anastomosis at the site of previous rectal resection suspicious
for anastomotic leak. There is 2.6 cm rim-enhancing enhancing fluid collection posterior to distal descending colon anterior to the sacrum suspicious for small abscess. Moderate to severe diffuse thickening of the urinary bladder suggesting acute
cystitis. Small volume of upper abdominal ascites. Large 15 centimeter loculated fluid collection in the left lateral paracolic gutter displacing small bowel and colonic loops which appear unchanged.
Concern for significant lower GI bleeding in the setting of recent ileostomy creation and reversal of ileostomy.
1 unit of blood transfusion. Hold Eliquis. NPO. Colorectal surgery and GI consulted. GI recommended against reversal of Eliquis at this time. Clinically the fluid collection more likely to be seroma than abscess. The large cystic lesion
appears to be present previously.
--- NOTE | 2024-05-22 15:15 | EDRN ---
Pt expelled a large amount of blood and clots w/ small amount of stool and cleaned up w/ good pericare at this time.
--- NOTE | 2024-05-22 15:31 | EDRN ---
Dr. Tenorio in room w/pt at this time.
--- NOTE | 2024-05-22 16:58 | CON.CRS ---
Consultation
-
Date/Time Consultation Requested: 05/22/2024 @13:49
Date/Time Consultation Performed: 05/22/2024 @16:00
Requesting Provider: Annalee Gong PA-C
Performing Provider: Arturo Tenorio MD
Reason for Consultation: Rectal bleeding
Medical History
-
Chief Complaint: REctal bleeding since last night
History of Present Illness:
79-year-old female well-known to me, who developed several episodes of bright red blood last night. She has a history of rectal cancer and underwent total neoadjuvant treatment (chemotherapy and chemoradiation) and did not have a complete response.
She had significant bleeding from the tumor and underwent a robotic ultra-low anterior resection and diverting ileostomy on 11/12/2023. She had critical aortic stenosis but the valve could not be repaired due to the bleeding. Following the LAR, she
underwent a TAVR on 02/27/2024. Once recovered, she underwent a flexible sigmoidoscopy and closure of the ileostomy on 04/15/2024. Since the surgery she has retained fluid and has had an intermittent ileus. She had an episode of rectal bleeding (3x)
and when in the ER on 04/26 her hemoglobin was 4.8 g/dL. Her Eliquis was held and there was no more bleeding. She was actually doing better over the past few weeks. Her stools are still loose but she denies incontinence. Her appetite is good and she
denies abdominal pain.
In the ER she is in no acute distress. Her vital signs are normal and she is afebrile. Her WBC is normal and her Hgb is 7.4 g/dL. A CT scan of the abdomen and pelvis reveals some fluid around the anastomosis without air or contrast in it. She had a
fluid collection on previous scans and it was becoming smaller. There is also a ? 2.6 cm abscess posterior to the descending colon and anterior to the sacrum. There is small volume abdominal ascites and no free air. There is a chronic 15.8cm fluid
collection on the left that has been evaluated and while in the OR, it is a large left renal cyst. There is mild hepatic cirrhosis.
Past Medical History
Past Medical History: Arrhythmias (PAF), Cancer (rectal), HTN, Hyperthyroidism and Valvular Disease (s/p TAVR)
Past Surgical History: Appendectomy, Tonsilectomy and Other (as per the HPI)
Social History
Tobacco: Former Smoker
Alcohol: None
Personal: Single
Employment: Retired
Family History
Family History: Reviewed & Not Pertinent
Allergies / Home Medications
Allergy/AdvReac Type Severity Reaction Status Date / Time
metoprolol Allergy Very low Verified 05/22/24 11:05
BP with
even low
doses of
metoprolol
Penicillins Allergy Hives Verified 05/22/24 11:05
�Medication �Instructions �Recorded �Confirmed �Type
cyanocobalamin (vitamin B-12) 1,000 mcg PO DAILY@1300 Supplement 09/25/23 05/22/24 History
1,000 mcg tablet (Vitamin B-12) ##0
vitamin B complex 1 tab PO DAILY@1300 Supplement 09/25/23 05/22/24 History
ascorbic acid (vitamin C) 1,000 mg 1,000 mg PO DAILY@1300 Supplement 02/04/24 05/22/24 History
tablet (Vitamin C)
biotin 10,000 mcg capsule 10,000 mcg PO DAILY@1300 Supplement 02/04/24 05/22/24 History
calcium 333 mg-D3 8.3 2 cap PO DAILY Supplement 02/04/24 05/22/24 History
mcg-magnesium ox 116.7
wz-J-A-minerals capsule (BoneUp)
methimazole 10 mg tablet 5 mg PO DAILY Thyroid 02/04/24 05/22/24 History
quercetin 500 mg capsule 500 mg PO DAILY@1300 Supplement 02/04/24 05/22/24 History
collagen,hydrolysate 500 mg-biotin 2 cap PO DAILY@1300 Supplement 04/10/24 05/22/24 History
800 mcg-ascorbic acid 50 mg
capsule (Collagen 1500 Plus C)
acetaminophen 325 mg tablet 650 mg (2 x 325 mg) PO Q4HPRN PRN 04/26/24 05/22/24 Rx
mild pain #1 tab
amiodarone 200 mg tablet 200 mg PO DAILY Arrhythmia #0 tabs 04/26/24 05/22/24 Rx
apixaban 5 mg tablet (Eliquis) 5 mg PO BID Blood clot 04/26/24 05/22/24 Rx
prevention/tx #0 tabs
calcium 333 mg-D3 8.3 1 cap PO HS Supplement 05/06/24 05/22/24 History
mcg-magnesium ox 116.7
hp-I-V-minerals capsule (BoneUp)
potassium chloride 10 mEq 10 meq PO Q48H Electrolyte 05/06/24 05/22/24 History
tablet,extended release Repletion
therapeutic multivitamin 1 tab PO DAILY Supplement 05/06/24 05/22/24 History
furosemide 20 mg tablet (Lasix) 20 mg PO DAILYPRN PRN Weight gain 05/22/24 05/22/24 History
loperamide 2 mg tablet 2 mg PO BIDPRN PRN diarrhea 05/22/24 05/22/24 History
simethicone 80 mg chewable tablet 80 mg PO QIDPRN PRN gas 05/22/24 05/22/24 History
Review of Systems
-
History Source: Patient
All other systems: Negative unless noted
A 10 point review of systems was completed, and was negative except as per HPI.
Physical Exam
Vital Signs
Temp 98.1 F 05/22/24 15:53
Pulse 65 05/22/24 15:53
Resp Rate 12 05/22/24 15:53
Blood pressure 101/56 05/22/24 15:53
SaO2 100 05/22/24 15:53
05/21/24 05/22/24 05/23/24
06:59 06:59 06:59
Actual Weight 64.8 kg
Body Mass Index (BMI) 26.2
Lab Results / Allergies
05/22/24 12:57
WBC 6.0 10^3/uL (4.8-10.8) 05/22/24 12:03
Hgb 7.4 g/dL (12.0-16.0) L 05/22/24 12:03
Hct 22.7 % (37.0-47.0) L 05/22/24 12:03
Plt Count 311 10^3/uL (130-400) 05/22/24 12:03
Abs Immat Gran (auto) 0.1 10^3/uL (0-0.05) H 05/22/24 12:03
Neutrophils % 84.7 % (42.2-75.2) H 05/22/24 12:03
Allergy/AdvReac Type Severity Reaction Status Date / Time
metoprolol Allergy Very low Verified 05/22/24 11:05
BP with
even low
doses of
metoprolol
Penicillins Allergy Hives Verified 05/22/24 11:05
Physical Exam
General: Well Developed, Well Nourished and No Apparent Distress
HEENT: Anicteric
Respiratory: Clear
Cardiac: Regular Rhythm
GI: Soft, Non Tender, Non Distended and Other
Rectal: Other (performed by Dr. Austin. ? small defect posteriorly at the anastomosis just above the anorectal ring)
Musculoskeletal: Edema
Neuro: Awake and Alert
Psych: Calm
Data Reviewed
-
CT Scan: Image Personally Visualized and interpreted, Report Reviewed by me, Discussed with Patient and Discussed with Family
Labs: Labs Reviewed by me, Discussed with Patient and Discussed with Family
Assessment / Plan
-
Rectal bleeding. Hemodynamically stable.
The source of the bleeding is unclear, but given the findings on CT, I recommend a sigmoidoscopy. Although an anastomotic leak is possible, there is no air in the fluid and she is not septic.
Will hold the Eliquis for now. 1 unit of blood has been ordered.
Timing of the sigmoidoscopy will be dependent upon her clinical course. I reviewed the risks, benefits and alternatives and is in agreement with the plan. All questions answered. Will follow.
--- NOTE | 2024-05-22 18:04 | EDRN ---
Processed transfer of admission orders at this time.
[2024-05-22] MEDS: NSS 1000 IV (18:07)
--- NOTE | 2024-05-22 18:17 | EDRN ---
Ordered NSS IV infusion started and 18:00 HGB drawn and sent at this time.
[2024-05-22 18:21] LABS: Hematocrit 21.7 % (37.0-47.0); Hemoglobin 7.2 g/dL (12.0-16.0)
--- NOTE | 2024-05-22 18:45 | EDRN ---
[facility] RN given verbal report at this time.
[2024-05-22] MEDS: TYLENOL 650 MG PO (21:16)
[2024-05-23] VITALS (18 sets, daily range): BP systolic 92–154; BP diastolic 40–90; PULSE 52–69; BMI 24.7
[2024-05-23 00:34] LABS: Hematocrit 24.2 % (37.0-47.0)
--- NOTE | 2024-05-23 01:04 | PTCARENOTE ---
pt admitted from ED at shift change. pt is AAOx3- WIYOT, able to make needs known. 96% RA. VSS. pt with blood clots per rectum. H/H drawn 8.0/24.2. IV fluids infusing without issues. pt oriented to room, call desai within reach, care ongoing.
[2024-05-23] MEDS: ROXICODONE 5 MG PO ×2 (02:00→20:30)
--- NOTE | 2024-05-23 03:52 | PTCARENOTE ---
pt with complaints of pain in her feet. pt was given tylenol earlier with no relief, pt then requesting oxycodone. notified covering [employer]- orders entered for x1 dose of 5mg oxycodone. pt noted to be sleeping after administration. care ongoing.
[2024-05-23 06:25] LABS: Hematocrit 21.8 % (37.0-47.0); Hemoglobin 6.9 g/dL (12.0-16.0); Mean Corp Hgb Conc. 31.7 g/dL (33.0-37.0); Mean Corpuscular Volume 91.6 fL (81.0-99.0); Mean Platelet Volume 9.5 fL (7.4-10.4); Platelet Count 242 10^3/uL (130-400); Red Blood Cell Count 2.38 10^6/uL (4.20-5.40); Red Cell Dist. Width 19.7 % (11.5-14.5); White Blood Cell Count 5.1 10^3/uL (4.8-10.8)
[2024-05-23 06:39] LABS: Blood Urea Nitrogen 22 mg/dl (7-17); Calcium 8.5 mg/dl (8.4-10.2); Carbon Dioxide 26 mmol/L (22-30); Chloride 110 mmol/L (98-107); Estimated Creatinine Clearance 48 ml/min; Glucose 76 mg/dl (70-99); Potassium 4.2 mmol/L (3.5-5.1); Sodium 141 mmol/L (135-145); eGFR > 60.00
[2024-05-23] MEDS: NSS 250 IV (07:24)
--- NOTE | 2024-05-23 07:28 | PTCARENOTE ---
h/h critical this AM, 6.9/21.8- pt still with large blood clots per rectum. soft BP's. notified covering [employer]- orders entered, pt to get bolus and 2 units of PRBC's. report given to oncoming RN.
[2024-05-23] MEDS: TYLENOL 650 MG PO (08:29)
[2024-05-23] MEDS: TAPAZOLE 5 MG PO (08:30)
[2024-05-23] MEDS: CORDARONE 104 MG IV (08:30)
[2024-05-23] MEDS: NSS 1000 IV (08:31)
[2024-05-23 08:50] LABS: Urine Albumin Negative (Neg - Trace); Urine Bilirubin Negative (Negative); Urine Character Clear (Clear); Urine Color Yellow; Urine Glucose Negative (Negative); Urine Ketone Negative (Negative); Urine Leukocyte Negative (Negative); Urine Nitrite Negative (Negative); Urine Occult Blood 3+ (Negative); Urine Urobilinogen Negative (Neg - 1+)
[2024-05-23 09:44] LABS: Free T3 2.23 pg/ml (2.77-5.27); Free T4 0.47 ng/dl (0.78-2.19)
--- NOTE | 2024-05-23 10:04 | W.PN.HOSP.TC ---
Today's Communication/Plan
-
see PN
Assessment / Plan
Assessment / Plan
79yo F with PMHx of hyperthyroidism, Afib, s/p TAVR (bioprosthetic), HFpEF, rectal CA s/p chemotherapy and resection with ileostomy s/p reversal on 04/15/24, recent admission 2/2 postOP possible anastomotic rectal bleeding came with recurrent
rectal bleeding and severe anemia, CTA also showed some fluid around anastomosis without contrast, that decreased in size from prior. Also has known fluid collection in left (15.8cm) evaluated on previous Sx and found to be renal cyst. Pending
Eliquis washout and sygmoidoscopy, monitoring H&H and transfusiing as needed
A/P:
#Acute blood loss anemia 2/2 GIB, most likely anastomotic 2/2 recent ileostomy reversal
No fevers, no WBC and no signs of perforation - monitor off Abx
Colorectal Sx - for sigmpoidoscopy
Avoid antiplatyelets, NSAIDs and anticoagulation
Serial Hgb and transfuse to keep Hgb >7
# s/p TAVR
#Afib, paroxysmal
cont Amio
cont telemetry
Hold Eliquis while bleeding
#Large L renal cyst 2/2 polycystic kidney disease
#Bilateral renal adenomas
currently asymptomatic
Outpatient Nephrology
#Hyperthyroidism
FT3 and FT4 mildly depressed
cont same dose of methymazole
#Bladder wall thickening
most likely 2/2 fluid retention
UA without signs of UTI
restart diuretics, when able
#Chronic HFpEF
Restart lasix/spironolactone when BP allows
#Mild hepatic cirrhosis
GI follow up
Check HepC Ab
#DJD
tylenol
DVT ppx SCDs
DNR/DNI
I have spent at least 58min reviewing chart, test results, communication with cosnultants and direct patient care
Anticipated Discharge: > 48 hours
Subjective/Interval History
-
Date of Service: May 23, 2024
Objective Data
-
Labs:
Laboratory Results
05/22/24 05/23/24 05/23/24
12:03 00:13 06:08
WBC 5.1
Hgb 8.0 L 6.9 L*
Hct 24.2 L 21.8 L
Plt Count 242 D
Sodium 140 141
Potassium 4.2
Chloride 106 110 H
Carbon Dioxide 26 26
BUN 25 H 22 H
Creatinine 1.0 0.8
Glucose 85 76
Calcium 9.3 8.5
Total Bilirubin Cancelled
AST Cancelled
ALT Cancelled
Alkaline Phosphatase Cancelled
05/23/24 05/23/24
12:00 18:00
WBC
Hgb Pending Pending
Hct Pending Pending
Plt Count
Sodium
Potassium
Chloride
Carbon Dioxide
BUN
Creatinine
Glucose
Calcium
Total Bilirubin
AST
ALT
Alkaline Phosphatase
Vital Signs:
Vital Signs
Temp Pulse Resp BP Pulse Ox
98.3 F 62 12 108/71 93
05/23/24 08:26 05/23/24 08:26 05/23/24 08:26 05/23/24 08:26 05/23/24 08:00
I&O
05/22/24 05/23/24 05/24/24
06:59 06:59 06:59
Intake Total 250 / 250 0 / 0
Balance 250 / 250 0 / 0
Review of Systems
-
History Source: Patient
All other systems: Reviewed and negative
Abdomen/GI: Reports Abdominal Pain and Bloody Stools
Physical Exam
-
General: No Apparent Distress
HEENT: Normocephalic
Respiratory: Clear to Auscultation
Cardiac: Regular Rhythm
GI: Soft, Tender and Distended
Musculoskeletal: No Clubbing, No Cyanosis and No Edema
Neuro: Awake, Alert, Oriented and AO x 3
Psych: Calm
[2024-05-23 10:29] LABS: Magnesium 2.1 mg/dl (1.6-2.3)
--- NOTE | 2024-05-23 12:36 | W.PN.CRS1 ---
Today's Communication / Plan
-
as below
Assessment/Plan
-
79-year-old female with PMH of A-fib (on Eliquis), valvular disease s/p TAVR, HTN, hypothyroidism, diastolic CHF, rectal cancer s/p [place] and LAR with DLI due to tumor bleeding, s/p DLI reversal on 04/15/2024, s/p GI bleed with admission on 05/06,
treated nonoperatively and discharged on 05/12, who presents with recurrent hematochezia; s/p PRBC x 1
AFVSS
WBC 5.1, Hb 6.9 from 8.0 from 2.7, Cr 0.8
�GI bleed, holding all AC, trend CBC until Hb stabilized and no further bleeding
�S/p PRBC x 1; receiving another transfusion this morning
�Once Eliquis washed out of system, will likely perform flexible sigmoidoscopy; possibly Saturday pending her clinical course
� Okay for clears, gentle IV fluids
� Pain control with Tylenol, oxycodone as needed
� Appreciate hospitalist for comorbidities
Subjective Data
Subjective Data
Date of Service: May 23, 2024
Overnight, had 2-3 more BMs that appeared bloody to the patient. Also having mild diffuse pains, abdominally and in her lower extremities due to swelling.
Denies nausea/vomiting.
Objective Data
-
Vital Signs
Temp Pulse Resp BP Pulse Ox
98.1 F 60 14 134/54 94
05/23/24 11:55 05/23/24 11:55 05/23/24 11:55 05/23/24 11:55 05/23/24 10:00
Intake & Output
05/22/24 05/23/24 05/24/24
06:59 06:59 06:59
Intake Total 250 / 250 250 / 250
Output Total 350 / 350
Balance 250 / 250 -100 / -100
Intake:
Blood Product Amount Infused ( 250 / 250 250 / 250
mL)
Packed Rbc Leukoreduced Unit 250 / 250
[id number]
Packed Rbc Leukoreduced Unit 0 / 0
[id number]
Packed Rbc Leukoreduced Unit 250 / 250
[id number]
Output:
Urine, Voided 350 / 350
Other:
How many times incontinent 1
SATURATED amount urine
Number of unmeasured liquid
stools
Rectum 1
Lab Results
05/23/24 06:08
Physical Exam
-
General: No Acute Distress and AOx3
HEENT: Grossly Normal
Abdomen: Soft, Distended (Mildly distended, nontympanitic), Tender (Mildly diffusely tender, no rebound or guarding), No Guarding and No Rebound
Skin: Warm and Dry
Wound: No Signs of Infection, No Skin Erythema and Other (Incisions well-healed)
--- NOTE | 2024-05-23 16:12 | PTCARENOTE ---
2 units PRBC infused without difficulty. Tele remains SR/SB 59-70s. BP 90s-130/60-80s. Incontinent large amt melena w clots this am. Continent of urine - urine specimen obtained and sent. Paleness improved .
--- NOTE | 2024-05-23 16:15 | CM ---
Patient who is s/p transfusions. Room air. NPO/IVF. Receiving IV Amiodarone. Per nursing assessment; generalized weakness
Met with patient who resides alone in a 3rd floor apartment in a building with elevator.
The patient has been independent in ADLs and ambulation without using an assistive device.
DME - rollator
VN prior [facility]
SNF - prior [place]
PCP - Willie Ryan
Pharmacy - [facility]
Offered VN and patient declined.
CM Consult: Advanced Directive
Provided Advanced Directive Forms w/ instruction to provide to nurse to make chart copy once completed.
Patient may benefit from Pt/OT Evals if weakness doesn't resolve.
Plan home.
--- NOTE | 2024-05-23 17:24 | PTCARENOTE ---
OOB to BSC and now recliner chair, orthostatic VS completed and negative- denies any symptoms. Intermittent pain still 7/10 refusing med intervention at this time- will wait closer to bedtime to take.
[2024-05-23 18:55] LABS: Hemoglobin 9.8 g/dL (12.0-16.0)
--- NOTE | 2024-05-23 19:04 | PTCARENOTE ---
OOB for 1 hour this pm, remains asymptomatic. NPO status maintained IVF infusing. Melena documented in flowsheet x3 today. Voids adequate.
[2024-05-24] VITALS (11 sets, daily range): BP systolic 106–148; BP diastolic 44–94; BMI 24.6
[2024-05-24 05:12] LABS: % Basophils 0.9 % (0-2); % Eosinophils 3.9 % (0-6); % Immature Granulocytes 0.5 % (0-0.5); % Lymphocytes 9.1 % (20.5-51.1); % Monocytes 7.3 % (1.7-9.3); % Neutrophils 78.3 % (42.2-75.2); Absolute Basophils 0.1 10^3/uL (0-0.2); Absolute Eosinophils 0.2 10^3/uL (0-0.7); Absolute Lymphocytes 0.5 10^3/uL (1.2-3.4); Absolute Monocytes 0.4 10^3/uL (0.1-0.6); Absolute Neutrophils 4.4 10^3/uL (1.4-6.5); Hematocrit 27.3 % (37.0-47.0); Hemoglobin 9.1 g/dL (12.0-16.0); Mean Corp Hgb Conc. 33.3 g/dL (33.0-37.0); Mean Corpuscular Hgb 30.1 pg (27.0-31.0); Mean Corpuscular Volume 90.4 fL (81.0-99.0); Mean Platelet Volume 9.9 fL (7.4-10.4); Nucleated Red Blood Cells % 0 %; Platelet Count 238 10^3/uL (130-400); Red Blood Cell Count 3.02 10^6/uL (4.20-5.40); Red Cell Dist. Width 17.6 % (11.5-14.5); White Blood Cell Count 5.6 10^3/uL (4.8-10.8)
--- NOTE | 2024-05-24 05:29 | PTCARENOTE ---
ax3- afebrile sinus- pt had 2 bm's with bloody clots- hgb drawn this am stable- bp stable-
[2024-05-24 05:39] LABS: ALT (SGPT) 11 U/L (0-35); AST (SGOT) 24 U/L (14-36); Albumin 2.5 g/dl (3.5-5.0); Alkaline Phosphatase 67 U/L (38-126); Blood Urea Nitrogen 17 mg/dl (7-17); Calcium 8.3 mg/dl (8.4-10.2); Carbon Dioxide 23 mmol/L (22-30); Chloride 110 mmol/L (98-107); Estimated Creatinine Clearance 48 ml/min; Glucose 67 mg/dl (70-99); Potassium 4.3 mmol/L (3.5-5.1); Sodium 141 mmol/L (135-145); Total Bilirubin 0.5 mg/dl (0.2-1.3); eGFR > 60.00
[2024-05-24] MEDS: CORDARONE IV (09:08)
--- NOTE | 2024-05-24 09:18 | W.PN.HOSP.TC ---
Today's Communication/Plan
-
Patient declined ROS and physical exam today
Hgb stable -check in AM
[facility] mgmt for sigmoidoscopy
Restarted Lasix PRN for weight gain - daily weights
Assessment / Plan
Assessment / Plan
79yo F with PMHx of hyperthyroidism, Afib, s/p TAVR (bioprosthetic), HFpEF, rectal CA s/p chemotherapy and resection with ileostomy s/p reversal on 04/15/24, recent admission 2/2 postOP possible anastomotic rectal bleeding came with recurrent
rectal bleeding and severe anemia, CTA also showed some fluid around anastomosis without contrast, that decreased in size from prior. Also has known fluid collection in left (15.8cm) evaluated on previous Sx and found to be renal cyst. Pending
Eliquis washout and sigmoidoscopy, monitoring H&H and transfusing as needed
A/P:
#Acute blood loss anemia 2/2 GIB, most likely anastomotic 2/2 recent ileostomy reversal
No fevers, no WBC and no signs of perforation - monitor off Abx
Colorectal Sx - for sigmpoidoscopy
Avoid antiplatelets, NSAIDs and anticoagulation
Serial Hgb and transfuse to keep Hgb >7
# s/p TAVR
#Afib, paroxysmal
cont Amio
cont telemetry
Hold Eliquis while bleeding
#Large L renal cyst 2/2 polycystic kidney disease
#Bilateral renal adenomas
currently asymptomatic
Outpatient Nephrology
#Hyperthyroidism
FT3 and FT4 mildly depressed
cont same dose of methimazole
#Bladder wall thickening
most likely 2/2 fluid retention
UA without signs of UTI
restart diuretics, when able
#Chronic HFpEF
Restart lasix when BP allows - use PRN for weight gain - daily weights
#Mild hepatic cirrhosis
GI follow up
Check HepC Ab
#DJD
tylenol
DVT ppx SCDs
DNR/DNI
I have spent at least 36min reviewing chart, test results, communication with cosnultants and direct patient care
Anticipated Discharge: 24 - 48 hours
Subjective/Interval History
-
Date of Service: May 24, 2024
Objective Data
-
Labs:
Laboratory Results
05/24/24
04:53
WBC 5.6
Hgb 9.1 L
Hct 27.3 L
Plt Count 238
Sodium 141
Potassium 4.3
Chloride 110 H
Carbon Dioxide 23
BUN 17
Creatinine 0.8
Glucose 67 L
Calcium 8.3 L
Total Bilirubin 0.5
AST 24
ALT 11
Alkaline Phosphatase 67
Vital Signs:
Vital Signs
Temp Pulse Resp BP Pulse Ox
97.6 F 56 15 126/52 96
05/24/24 07:30 05/24/24 08:00 05/24/24 08:00 05/24/24 08:00 05/24/24 09:09
I&O
05/23/24 05/24/24 05/25/24
06:59 06:59 06:59
Intake Total 250 / 250 1100 / 1100
Output Total 800 / 800
Balance 250 / 250 300 / 300
Review of Systems
-
Unable to obtain full review of systems at this time due to: Other (patient declined)
[2024-05-24] MEDS: PACERONE 200 MG PO (09:31)
[2024-05-24] MEDS: TAPAZOLE 5 MG PO (09:32)
--- NOTE | 2024-05-24 13:27 | W.PN.CRS1 ---
Addendum entered and electronically signed by Mahesh Martinez MD 05/24/24 16:07:
I saw and examined the patient.
The [employer]BILE EQUIPMENT [employer]IC[employer]'s note was reviewed and I agree with the note.
Comment:
79-year-old female with PMH of A-fib (on Eliquis), valvular disease s/p TAVR, HTN, hypothyroidism, diastolic CHF, rectal cancer s/p ROOSEVELT and LAR with DLI due to tumor bleeding, s/p DLI reversal on 04/15/2024, s/p GI bleed with admission on 05/06,
treated nonoperatively and discharged on 05/12, who presents with recurrent hematochezia; s/p PRBC x 1
AFVSS
WBC 5.6 from 5.1, Hb 9.1 from 9.8 from 6.9
�GI bleed, holding all AC, trend CBC until Hb stabilized and no further bleeding
�S/p PRBC x 3
�Once Eliquis washed out of system, will likely perform flexible sigmoidoscopy; possibly Saturday pending her clinical course
� Okay for clears, stop IVF; NPO past MN
� Pain control with Tylenol, oxycodone as needed
� Appreciate hospitalist for comorbidities
Original Note:
Today's Communication / Plan
-
Clears today and NPO after MN for possible flex sigmoidoscopy
Assessment/Plan
-
79-year-old female with PMH of A-fib (on Eliquis LD 05/22), valvular disease s/p TAVR, HTN, hypothyroidism, diastolic CHF, rectal cancer s/p ROOSEVELT and LAR with DLI due to tumor bleeding, s/p DLI reversal on 04/15/2024, s/p GI bleed with admission on
05/06, treated nonoperatively and discharged on 05/12, who presents with recurrent hematochezia;
AFVSS
Acute blood loss anemia: H/H stabilized s/p PRBC x 3
Passing much less blood rectally, trace amounts now
� Given GI bleed, holding all AC
� Tentative flexible sigmoidoscopy tomorrow
� Okay for clears, NPO after MN for possible procedure
- D/C IVF
� Pain control with Tylenol, oxycodone as needed
� Appreciate hospitalist for comorbidities
Subjective Data
Subjective Data
Date of Service: May 24, 2024
Patient seen and examined at bedside with Dr. Martinez this morning at 0945. OOB to chair. Denies pain. Passing occasional blood tinged liquid from the rectum but no significant bloody stools.
Objective Data
-
Vital Signs
Temp Pulse Resp BP Pulse Ox
98.5 F 57 19 131/52 97
05/24/24 11:10 05/24/24 10:00 05/24/24 09:25 05/24/24 09:31 05/24/24 09:25
Intake & Output
05/23/24 05/24/24 05/25/24
06:59 06:59 06:59
Intake Total 250 / 250 1100 / 1100 240 / 240
Output Total 800 / 800
Balance 250 / 250 300 / 300 240 / 240
Intake:
Oral fluids 120 / 120
IV fluids (Total) 600 / 600 120 / 120
Blood Product Amount Infused ( 250 / 250 500 / 500
mL)
Packed Rbc Leukoreduced Unit 250 / 250
[id number]
Packed Rbc Leukoreduced Unit 250 / 250
[id number]
Packed Rbc Leukoreduced Unit 250 / 250
[id number]
Output:
Urine, Voided 800 / 800
Other:
Number of approximated MODERATE 1 1
amounts of urine
How many times incontinent 1
SATURATED amount urine
Number of unmeasured liquid
stools
Rectum 1 1
Lab Results
05/24/24 04:53
05/24/24 04:53
Physical Exam
-
General: No Acute Distress and AOx3
HEENT: Grossly Normal
Abdomen: Soft, Non Distended (softly protuberant ), Non Tender, No Guarding and No Rebound
Skin: Warm and Dry
Wound: No Signs of Infection, No Skin Erythema and Other (Incisions well-healed)
--- NOTE | 2024-05-24 13:49 | PTCARENOTE ---
Patient is out of bed to chair. Tolerating clear liquid diet. Had one episode of a small amount of blood on bed sheet this shift. aware.
[2024-05-25] VITALS (8 sets, daily range): BP systolic 100–154; BP diastolic 36–68; BMI 24.6
[2024-05-25] MEDS: ROXICODONE 5 MG PO (00:39)
[2024-05-25 03:14] LABS: Hepatitis C Antibody Negative (Negative)
[2024-05-25 05:46] LABS: Hematocrit 27.5 % (37.0-47.0); Hemoglobin 8.7 g/dL (12.0-16.0)
--- NOTE | 2024-05-25 06:15 | PTCARENOTE ---
1bloody this shift- pt has been npo - labs h+h sent to lab
[2024-05-25] MEDS: PACERONE 200 MG PO (09:08)
[2024-05-25] MEDS: TAPAZOLE 5 MG PO (09:10)
--- NOTE | 2024-05-25 09:35 | W.PN.HOSP.TC ---
Today's Communication/Plan
-
Stable for tele
Sigmoidoscopy tomorrow
Assessment / Plan
Assessment / Plan
79yo F with PMHx of hyperthyroidism, Afib, s/p TAVR (bioprosthetic), HFpEF, rectal CA s/p chemotherapy and resection with ileostomy s/p reversal on 04/15/24, recent admission 2/2 postOP possible anastomotic rectal bleeding came with recurrent
rectal bleeding and severe anemia, CTA also showed some fluid around anastomosis without contrast, that decreased in size from prior. Also has known fluid collection in left (15.8cm) evaluated on previous Sx and found to be renal cyst. Pending
Eliquis washout and sigmoidoscopy, monitoring H&H and transfusing as needed
A/P:
#Acute blood loss anemia 2/2 GIB exacerbated by Eliquis
Most likely anastomotic 2/2 recent ileostomy reversal
No fevers, no WBC and no signs of perforation - monitor off Abx
Avoid antiplatelets, NSAIDs and anticoagulation
Appreciate colorectal surgery input, plan for sigmoidoscopy tomorrow
Status post 3 units packed red blood cells, monitor hemoglobin and transfuse as needed
# s/p TAVR
#Afib, paroxysmal
Continue amiodarone, hold Eliquis
#Large L renal cyst 2/2 polycystic kidney disease
#Bilateral renal adenomas
Outpatient Nephrology
#Hyperthyroidism
FT3 and FT4 mildly depressed
Continue methimazole
#Bladder wall thickening
Most likely 2/2 fluid retention
UA without signs of UTI
restart diuretics, when able
#Chronic HFpEF
Restart lasix when BP allows - use PRN for weight gain - daily weights
#Mild hepatic cirrhosis
GI follow up
HepC Ab neg
#DJD
tylenol
DVT ppx - SCDs
DNR/DNI
Total time spent to see the patient on the floor, examine the patient, review data and lab results, discuss treatment plan with patient, nursing staff around 37 minutes.
Physical Exam
General: No acute distress
HEENT: Normocephalic, Atraumatic, EOMI, MMM
Respiratory: Clear to Auscultation bilaterally
Cardiac: Normal S1/S2, Regular Rate and Rhythm
GI: Soft, Nontender, Nondistended, Normal Bowel Sounds
Extremities: No Clubbing, Cyanosis, or Edema
Neuro: Nonfocal/Grossly Intact
Anticipated Discharge: 24 - 48 hours
Subjective/Interval History
-
Date of Service: May 25, 2024
Patient had a small amount of rectal bleeding this morning. She had some associated abdominal soreness. No lightheadedness, no dizziness. No nausea, no vomiting.
Objective Data
-
Labs:
Laboratory Results
05/25/24
05:19
Hgb 8.7 L
Hct 27.5 L
Vital Signs:
Vital Signs
Temp Pulse Resp BP Pulse Ox
97.9 F 62 19 102/36 97
05/25/24 07:46 05/25/24 09:08 05/24/24 09:25 05/25/24 09:08 05/24/24 19:58
I&O
05/24/24 05/25/24 05/26/24
06:59 06:59 06:59
Intake Total 1100 / 1100 360 / 360
Output Total 800 / 800 600 / 600
Balance 300 / 300 -240 / -240
--- NOTE | 2024-05-25 10:10 | PTCARENOTE ---
[facility]. Ox3 and appropriate, very [facility]. NSR on tele with BBB and a prolonged QT. Pt on RA, breath sounds with crackles at the bases. Pt states she had one episode of bleeding overnight, she tells me it was not a BM, there was
only blood. Pt tolerating walking with just a standby assist. Pt has call desai within reach and is making all needs known.
--- NOTE | 2024-05-25 12:40 | W.PN.CRS1 ---
Today's Communication / Plan
-
colonoscopy tomorrow
bowel prep today
Assessment/Plan
-
79-year-old female with PMH of A-fib (on Eliquis LD 05/22), valvular disease s/p TAVR, HTN, hypothyroidism, diastolic CHF, rectal cancer s/p ROOSEVELT and LAR with DLI due to tumor bleeding, s/p DLI reversal on 04/15/2024, s/p GI bleed with admission on
05/06, treated nonoperatively and discharged on 05/12, who presents with recurrent hematochezia;
AFVSS
Acute blood loss anemia: H/H stabilized s/p PRBC x 3
Passing much less blood rectally, trace amounts now
� Given GI bleed, holding all AC
� Scheduled for a colonoscopy tomorrow with Dr. Teonrio
- Clears with Ensure today, NPO at midnight
- Start bowel prep today
� Pain control with Tylenol, oxycodone as needed
� Appreciate hospitalist for comorbidities
Subjective Data
Subjective Data
Date of Service: May 25, 2024
The patient states she last bled sometime overnight but it was much more mild in nature. She has not had bowel movements. She denies nausea or vomiting.
Objective Data
-
Vital Signs
Temp Pulse Resp BP Pulse Ox
97.9 F 62 19 102/36 97
05/25/24 07:46 05/25/24 09:08 05/24/24 09:25 05/25/24 09:08 05/25/24 10:14
Intake & Output
05/24/24 05/25/24 05/26/24
06:59 06:59 06:59
Intake Total 1100 / 1100 360 / 360
Output Total 800 / 800 600 / 600
Balance 300 / 300 -240 / -240
Intake:
Oral fluids 240 / 240
IV fluids (Total) 600 / 600 120 / 120
Blood Product Amount Infused ( 500 / 500
mL)
Packed Rbc Leukoreduced Unit 250 / 250
[id number]
Packed Rbc Leukoreduced Unit 250 / 250
[id number]
Output:
Urine, Voided 800 / 800 600 / 600
Other:
Number of approximated MODERATE 1 1
amounts of urine
Number of unmeasured liquid
stools
Rectum 1 1
Lab Results
05/25/24 05:19
05/24/24 04:53
Physical Exam
-
General: No Acute Distress and AOx3
Abdomen: Soft, Non Distended and Non Tender
Skin: Warm and Dry
[2024-05-25] MEDS: NULYTELY SOLUTION 2 LITERS PO (13:46)
--- NOTE | 2024-05-25 20:50 | PTCARENOTE ---
Patient transferred to [email or web address] Belongings sent with patient.
--- NOTE | 2024-05-25 21:00 | PTCARENOTE ---
Report received from EDWARD Haskins. pt transferred from IMU to 332 and walked from WC to bed w/ steady gait. Rest of bowel prep brought down w/ pt. Placed on tele #1, NSR w/BBB. Pt oriented to , call desai within reach, and plan of care ongoing.
[2024-05-26] VITALS (7 sets, daily range): BP systolic 104–126; BP diastolic 41–55; BMI 24.5
[2024-05-26] MEDS: ROXICODONE 5 MG PO (00:32)
[2024-05-26 06:33] LABS: Hematocrit 32.1 % (37.0-47.0); Hemoglobin 10.1 g/dL (12.0-16.0); Mean Corp Hgb Conc. 31.5 g/dL (33.0-37.0); Mean Corpuscular Hgb 29.4 pg (27.0-31.0); Mean Corpuscular Volume 93.6 fL (81.0-99.0); Mean Platelet Volume 9.8 fL (7.4-10.4); Platelet Count 242 10^3/uL (130-400); Red Blood Cell Count 3.43 10^6/uL (4.20-5.40); Red Cell Dist. Width 17.9 % (11.5-14.5); White Blood Cell Count 5.2 10^3/uL (4.8-10.8)
[2024-05-26 06:59] LABS: Blood Urea Nitrogen 10 mg/dl (7-17); Carbon Dioxide 26 mmol/L (22-30); Chloride 106 mmol/L (98-107); Estimated Creatinine Clearance 43 ml/min; Glucose 75 mg/dl (70-99); Phosphorus 3.2 mg/dl (2.5-4.5); Potassium 3.9 mmol/L (3.5-5.1); Sodium 141 mmol/L (135-145); eGFR > 60.00
[2024-05-26] MEDS: PACERONE 200 MG PO (09:42)
[2024-05-26] MEDS: TAPAZOLE 5 MG PO (09:42)
--- NOTE | 2024-05-26 11:48 | CM ---
CM following re: discharge planning.
Reviewed pt's chart, met with pt and pt's sister at bedside.
Pt confirms she resides alone in a 3rd floor apartment in a building with elevator and patient has been independent in ADLs and ambulation without using an assistive device.
IMM reviewed, placed on chart, pt has a copy.
D/C plan: home with anticipated no needs.
CM will follow with discharge plan updates as hospitalization progresses
--- NOTE | 2024-05-26 15:24 | W.PN.UPDATE ---
Update Note
Progress Note Update
Colonoscopy into the terminal ileum. No blood throughout.
Moderate radiation changes of the distal rectal mucosa. No active bleeding.
Normal anastomosis.
Will resume her diet.
Mesalamine suppositories ordered.
Anticoagulation as per cardiology/medicine.
--- NOTE | 2024-05-26 16:12 | W.PN.HOSP.TC ---
Today's Communication/Plan
-
see bold
Assessment / Plan
Assessment / Plan
79yo F with PMHx of hyperthyroidism, Afib, s/p TAVR (bioprosthetic), HFpEF, rectal CA s/p chemotherapy and resection with ileostomy s/p reversal on 04/15/24, recent admission 2/2 postOP possible anastomotic rectal bleeding came with recurrent
rectal bleeding and severe anemia, CTA also showed some fluid around anastomosis without contrast, that decreased in size from prior. Also has known fluid collection in left (15.8cm) evaluated on previous Sx and found to be renal cyst. Pending
Eliquis washout and sigmoidoscopy, monitoring H&H and transfusing as needed
A/P:
#Acute blood loss anemia 2/2 GIB exacerbated by Eliquis
Most likely anastomotic 2/2 recent ileostomy reversal
No fevers, no WBC and no signs of perforation - monitor off Abx
Appreciate colorectal surgery input, 05/26 c-scope shows moderate radiation changes of the distal rectal mucosa, no active bleeding, normal anastomosis
Hemoglobin stable status post 3 units packed red blood cells, monitor hemoglobin and transfuse as needed
Cleared by colorectal surgery to resume Eliquis 5 mg BID 05/26 PM
# s/p TAVR
#Afib, paroxysmal
Continue amiodarone, Eliquis
#Large L renal cyst 2/2 polycystic kidney disease
#Bilateral renal adenomas
Outpatient Nephrology
#Hyperthyroidism
FT3 and FT4 mildly depressed
Continue methimazole
#Bladder wall thickening
Most likely 2/2 fluid retention
UA without signs of UTI
restart diuretics, when able
#Chronic HFpEF
Resume Lasix as needed
#Mild hepatic cirrhosis
GI follow up
HepC Ab neg
#DJD
tylenol
DVT ppx - eliquis
DNR/DNI
Total time spent to see the patient on the floor, examine the patient, review data and lab results, discuss treatment plan with patient, nursing staff around 40 minutes.
Physical Exam
General: No acute distress
HEENT: Normocephalic, Atraumatic, EOMI, MMM
Respiratory: Clear to Auscultation bilaterally
Cardiac: Normal S1/S2, Regular Rate and Rhythm
GI: Soft, Nontender, Nondistended, Normal Bowel Sounds
Extremities: No Clubbing, Cyanosis, or Edema
Neuro: Nonfocal/Grossly Intact
Anticipated Discharge: Within 24 hours
Subjective/Interval History
-
Date of Service: May 26, 2024
No more recurrence of rectal bleeding. No chest pain, no shortness of breath. No fever, no vomiting.
Objective Data
-
Labs:
Laboratory Results
05/26/24
06:05
WBC 5.2
Hgb 10.1 L
Hct 32.1 L
Plt Count 242
Sodium 141
Potassium 3.9
Chloride 106
Carbon Dioxide 26
BUN 10
Creatinine 0.9
Glucose 75
Calcium 9.0
Vital Signs:
Vital Signs
Temp Pulse Resp BP Pulse Ox
97.9 F 59 16 107/41 96
05/26/24 07:30 05/26/24 07:30 05/26/24 07:30 05/26/24 07:30 05/26/24 07:30
I&O
05/25/24 05/26/24 05/27/24
06:59 06:59 06:59
Intake Total 360 / 360 480 / 480
Output Total 600 / 600
Balance -240 / -240 480 / 480
[2024-05-26] MEDS: ELIQUIS 5 MG PO (20:22)
[2024-05-26] MEDS: ROWASA, CANASA SUPPOSITORY 1000 MG RECTAL (20:28)
[2024-05-27 03:37] VITALS: BP 116/51
[2024-05-27 06:00] VITALS: BMI 24.2
[2024-05-27 06:41] LABS: Hematocrit 27.6 % (37.0-47.0); Hemoglobin 8.8 g/dL (12.0-16.0); Mean Corp Hgb Conc. 31.9 g/dL (33.0-37.0); Mean Corpuscular Hgb 29.8 pg (27.0-31.0); Mean Corpuscular Volume 93.6 fL (81.0-99.0); Mean Platelet Volume 9.9 fL (7.4-10.4); Platelet Count 193 10^3/uL (130-400); Red Blood Cell Count 2.95 10^6/uL (4.20-5.40); White Blood Cell Count 4.2 10^3/uL (4.8-10.8)
[2024-05-27 07:15] VITALS: BP 119/52
[2024-05-27] MEDS: TAPAZOLE 5 MG PO (08:30)
[2024-05-27] MEDS: PACERONE 200 MG PO (08:30)
[2024-05-27] MEDS: ELIQUIS 5 MG PO ×2 (08:30→20:59)
--- NOTE | 2024-05-27 08:41 | W.PN.HOSP.TC ---
Today's Communication/Plan
-
Discharge tomorrow if hemoglobin remains stable
Assessment / Plan
Assessment / Plan
79yo F with PMHx of hyperthyroidism, Afib, s/p TAVR (bioprosthetic), HFpEF, rectal CA s/p chemotherapy and resection with ileostomy s/p reversal on 04/15/24, recent admission 2/2 postOP possible anastomotic rectal bleeding came with recurrent
rectal bleeding and severe anemia, CTA also showed some fluid around anastomosis without contrast, that decreased in size from prior. Also has known fluid collection in left (15.8cm) evaluated on previous Sx and found to be renal cyst. Pending
Eliquis washout and sigmoidoscopy, monitoring H&H and transfusing as needed
A/P:
#Acute blood loss anemia 2/2 GIB exacerbated by Eliquis
Most likely anastomotic 2/2 recent ileostomy reversal
No fevers, no WBC and no signs of perforation - monitor off Abx
Appreciate colorectal surgery input, 05/26 c-scope shows moderate radiation changes of the distal rectal mucosa, no active bleeding, normal anastomosis
Hemoglobin stable status post 3 units packed red blood cells, monitor hemoglobin and transfuse as needed
Cleared by colorectal surgery to resume Eliquis 5 mg BID 05/26 PM. Continue canasa suppositories
Monitor hemoglobin, discharge tomorrow if continues to be stable
# s/p TAVR
#Afib, paroxysmal
Continue amiodarone, Eliquis
#Large L renal cyst 2/2 polycystic kidney disease
#Bilateral renal adenomas
Outpatient Nephrology
#Hyperthyroidism
FT3 and FT4 mildly depressed
Continue methimazole
#Bladder wall thickening
Most likely 2/2 fluid retention
UA without signs of UTI
restart diuretics, when able
#Chronic HFpEF
Resume Lasix as needed
#Mild hepatic cirrhosis
GI follow up
HepC Ab neg
#DJD
tylenol
DVT ppx - eliquis
DNR/DNI
Total time spent to see the patient on the floor, examine the patient, review data and lab results, discuss treatment plan with patient, nursing staff around 38 minutes.
Physical Exam
General: No acute distress
HEENT: Normocephalic, Atraumatic, EOMI, MMM
Respiratory: Clear to Auscultation bilaterally
Cardiac: Normal S1/S2, Regular Rate and Rhythm
GI: Soft, Nontender, Nondistended, Normal Bowel Sounds
Extremities: No Clubbing, Cyanosis, or Edema
Neuro: Nonfocal/Grossly Intact
Anticipated Discharge: Within 24 hours
Subjective/Interval History
-
Date of Service: May 27, 2024
Patient reports having a solid stool with small amount of blood. No fever, no vomiting. No chest pain, no shortness of breath. No lightheadedness, no dizziness.
Objective Data
-
Labs:
Laboratory Results
05/27/24
05:51
WBC 4.2 L
Hgb 8.8 L
Hct 27.6 L
Plt Count 193 D
Vital Signs:
Vital Signs
Temp Pulse Resp BP Pulse Ox
98.5 F 66 17 119/52 97
05/27/24 07:15 05/27/24 07:15 05/27/24 07:15 05/27/24 07:15 05/27/24 07:15
I&O
05/26/24 05/27/24 05/28/24
06:59 06:59 06:59
Intake Total 480 / 480 1100 / 1100
Balance 480 / 480 1100 / 1100
--- NOTE | 2024-05-27 10:24 | W.PN.CRS1 ---
Today's Communication / Plan
-
Imodium prn
continue mesalamine suppositories
okay for d/c from our perspective
Assessment/Plan
-
79-year-old female with PMH of A-fib (on Eliquis LD 05/22), valvular disease s/p TAVR, HTN, hypothyroidism, diastolic CHF, rectal cancer s/p ROOSEVELT and LAR with DLI due to tumor bleeding, s/p DLI reversal on 04/15/2024, s/p GI bleed with admission on
05/06, treated nonoperatively and discharged on 05/12, who presents with recurrent hematochezia;
AFVSS
05/26 - colonoscopy by Dr. Tenorio - proctitis noted
� Eliquis restarted yesterday
� Mesalamine suppositories daily for 3 weeks
- Imodium PRN ordered for loose stools
� Pain control with Tylenol, oxycodone as needed
� Okay for discharge from our perspective. Follow up with Dr. Tenorio in a few weeks. Discussed with patient.
Subjective Data
Subjective Data
Date of Service: May 27, 2024
Patient states she had a mild bowel movement this morning. Otherwise she is hungry. She denies nausea or vomiting. She would like to go home.
Objective Data
-
Vital Signs
Temp Pulse Resp BP Pulse Ox
98.5 F 66 17 119/52 97
05/27/24 07:15 05/27/24 07:15 05/27/24 07:15 05/27/24 07:15 05/27/24 07:15
Intake & Output
05/26/24 05/27/24 05/28/24
06:59 06:59 06:59
Intake Total 480 / 480 1100 / 1100
Balance 480 / 480 1100 / 1100
Intake:
Oral fluids 480 / 480 1100 / 1100
Other:
Number of approximated MODERATE 4 3
amounts of urine
Lab Results
05/27/24 05:51
05/26/24 06:05
Physical Exam
-
General: No Acute Distress and AOx3
Abdomen: Soft, Non Distended and Non Tender
Skin: Warm and Dry
[2024-05-27 11:27] VITALS: BP 131/59
[2024-05-27] MEDS: IMODIUM 2 MG PO ×2 (12:33→20:59)
[2024-05-27 15:31] VITALS: BP 125/52
[2024-05-27 21:01] VITALS: BMI 24.2
[2024-05-27] MEDS: ROXICODONE 5 MG PO (21:01)
[2024-05-27] MEDS: ROWASA, CANASA SUPPOSITORY 1000 MG RECTAL (21:02)
[2024-05-27 23:36] VITALS: BP 114/44
[2024-05-28 05:41] VITALS: BMI 24.5
[2024-05-28 06:36] LABS: Hematocrit 26.9 % (37.0-47.0); Hemoglobin 8.2 g/dL (12.0-16.0); Mean Corp Hgb Conc. 30.5 g/dL (33.0-37.0); Mean Corpuscular Hgb 29.4 pg (27.0-31.0); Mean Corpuscular Volume 96.4 fL (81.0-99.0); Mean Platelet Volume 10.3 fL (7.4-10.4); Platelet Count 169 10^3/uL (130-400); Red Blood Cell Count 2.79 10^6/uL (4.20-5.40); White Blood Cell Count 4.1 10^3/uL (4.8-10.8)
[2024-05-28 07:47] VITALS: BP 105/49
--- NOTE | 2024-05-28 08:35 | W.PN.UPDATE ---
Update Note
Progress Note Update
Attempted to see patient, she was in a deep sleep. Dispo per primary team.
--- NOTE | 2024-05-28 09:31 | W.PN.HOSP.TC ---
Today's Communication/Plan
-
Discharge today
Assessment / Plan
Assessment / Plan
79yo F with PMHx of hyperthyroidism, Afib, s/p TAVR (bioprosthetic), HFpEF, rectal CA s/p chemotherapy and resection with ileostomy s/p reversal on 04/15/24, recent admission 2/2 postOP possible anastomotic rectal bleeding came with recurrent
rectal bleeding and severe anemia, CTA also showed some fluid around anastomosis without contrast, that decreased in size from prior. Also has known fluid collection in left (15.8cm) evaluated on previous Sx and found to be renal cyst. Pending
Eliquis washout and sigmoidoscopy, monitoring H&H and transfusing as needed
A/P:
#Acute blood loss anemia 2/2 GIB exacerbated by Eliquis
Most likely anastomotic 2/2 recent ileostomy reversal
No fevers, no WBC and no signs of perforation - monitor off Abx
Appreciate colorectal surgery input, 05/26 c-scope shows moderate radiation changes of the distal rectal mucosa, no active bleeding, normal anastomosis
Hemoglobin stable status post 3 units packed red blood cells, monitor hemoglobin and transfuse as needed
Cleared by colorectal surgery to resume Eliquis 5 mg BID 05/26 PM. Continue canasa suppositories
Hemoglobin is stable status post resuming Eliquis, no recurrence of rectal bleeding
Stable for discharge, follow-up with colorectal surgery in the office as needed, her PCP in 1 week as well
Started on ferrous sulfate upon discharge, to be taken with ascorbic acid for absorption
# s/p TAVR
#Afib, paroxysmal
Continue amiodarone, Eliquis
#Large L renal cyst 2/2 polycystic kidney disease
#Bilateral renal adenomas
Outpatient Nephrology
#Hyperthyroidism
FT3 and FT4 mildly depressed
Continue methimazole
#Bladder wall thickening
Most likely 2/2 fluid retention
UA without signs of UTI
restart diuretics, when able
#Chronic HFpEF
Resume Lasix as needed
#Mild hepatic cirrhosis
GI follow up
HepC Ab neg
#DJD
tylenol
DVT ppx - eliquis
DNR/DNI
Physical Exam
General: No acute distress
HEENT: Normocephalic, Atraumatic, EOMI, MMM
Respiratory: Clear to Auscultation bilaterally
Cardiac: Normal S1/S2, Regular Rate and Rhythm
GI: Soft, Nontender, Nondistended, Normal Bowel Sounds
Extremities: No Clubbing, Cyanosis, or Edema
Neuro: Nonfocal/Grossly Intact
Anticipated Discharge: Today
Subjective/Interval History
-
Date of Service: May 28, 2024
No more recurrence of rectal bleeding. No lightheadedness, no dizziness. No chest pain, no shortness of breath. Patient feels well, and is eager for discharge today.
Objective Data
-
Labs:
Laboratory Results
05/28/24
05:28
WBC 4.1 L
Hgb 8.2 L
Hct 26.9 L
Plt Count 169
Vital Signs:
Vital Signs
Temp Pulse Resp BP Pulse Ox
98.1 F 60 16 105/49 93
05/28/24 07:47 05/28/24 07:47 05/28/24 07:47 05/28/24 07:47 05/28/24 07:47
I&O
05/27/24 05/28/24 05/29/24
06:59 06:59 06:59
Intake Total 1100 / 1100 1140 / 1140
Balance 1100 / 1100 1140 / 1140
[2024-05-28] MEDS: ELIQUIS 5 MG PO (09:45)
[2024-05-28] MEDS: PACERONE 200 MG PO (09:45)
[2024-05-28] MEDS: TAPAZOLE 5 MG PO (09:45)
[2024-05-28] MEDS: IMODIUM 2 MG PO (09:45)
[2024-05-28 09:56] LABS: Hemoglobin 9.1 g/dL (12.0-16.0)
--- NOTE | 2024-05-28 11:54 | W.DCSUMMARY ---
Discharge Summary
Discharge Data
Date of Admission: 05/22/24
Date of Discharge: 05/28/24
-
Pending Results: No
Hospital Course
Discharge diagnosis:
Acute blood loss anemia secondary to rectal bleeding exacerbated by Eliquis
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
Aortic stenosis status post surgery
Paroxysmal atrial fibrillation on Eliquis
Large left renal cyst secondary to polycystic kidney disease
Bilateral renal adenomas
Hyperthyroidism
Chronic heart failure with preserved ejection fraction
Mild hepatic cirrhosis
Degenerative joint disease
Consults: Colorectal surgery
05/26/24 c-scope - erythematous mucosa in the distal rectum
Hospital course:
79-year-old female with a past medical history of paroxysmal atrial fibrillation on Eliquis, aortic stenosis status post TAVR, CHF, and hyperthyroidism who was admitted for a acute blood loss anemia secondary to rectal bleeding. Patient's Eliquis
was held. She was transfused a total of 3 units of packed red blood cells. Patient's hemoglobin was as low as 6.9. It improved to 9.1, and remained stable at 9.1 on the day of discharge.
Patient was seen in conjunction with colorectal surgery. Colonoscopy showed radiation-induced changes of the distal rectal mucosa, no active bleeding noted. Colorectal surgery recommended Canasa suppositories, and cleared patient to resume
Eliquis. Her Eliquis was resumed on the evening of 05/26/2024. The following day, she did have a tiny amount of rectal bleeding. Colorectal surgery said it was from their colonoscopy. Her hemoglobin was monitored. She was monitored for an
additional 24 hours. She did not have any recurrence of rectal bleeding. She is medically stable and cleared by colorectal surgery for discharge. She has been started on iron supplements to help her make new blood. She needs to follow-up with
her primary care doctor in 1 week, and colorectal surgery in the office in 3-4 weeks.
Disposition: Home self-care
Discharge planning: Required 40 minutes
Discharge Plan
-
Patient Disposition: Home (Routine Discharge)
Discharge Diagnosis/Procedures: Rectal bleeding from radiation-induced inflammation exacerbated by Eliquis, acute blood loss anemia
Condition: Good
Diet: Low Fiber
Activity: As tolerated
Driving Restrictions: As prior to admission
Referrals:
Jose Alfredo Tenorio MD [Active] - in three to four weeks
Willie Ryan DO [Family Provider] - in one week
Additional Discharge Medication Instructions: Use one mesalamine suppository per night for 3 weeks, and then as needed for rectal bleeding after. You may use Imodium as needed for lose stools.
Prescriptions:
Continued
cyanocobalamin (vitamin B-12) [Vitamin B-12] 1,000 mcg Tablet
1,000 mcg PO DAILY@1300 Qty: 0
vitamin B complex Tablet
1 tab PO DAILY@1300
biotin 10,000 mcg Capsule
10,000 mcg PO DAILY@1300
methimazole 10 mg Tablet
5 mg PO DAILY
ascorbic acid (vitamin C) [Vitamin C] 1,000 mg Tablet
1,000 mg PO DAILY@1300
quercetin 500 mg Capsule
500 mg PO DAILY@1300
BoneUp 333 mg-8.3 mcg-116.7 mg Capsule
2 cap PO DAILY
Collagen 1500 Plus C 500 mg-800 mcg- 50 mg Capsule
2 cap PO DAILY@1300
amiodarone 200 mg tablet
200 mg PO DAILY Qty: 0 0RF
Eliquis 5 mg tablet
5 mg PO BID Qty: 0 0RF
acetaminophen 325 mg tablet
650 mg PO Q4HPRN PRN (Reason: mild pain) Qty: 1 0RF
therapeutic multivitamin Tablet
1 tab PO DAILY
potassium chloride 10 mEq Tablet Extended Release
10 meq PO Q48H
BoneUp 333 mg-8.3 mcg-116.7 mg Capsule
1 cap PO HS
loperamide 2 mg Tablet
2 mg PO BIDPRN PRN (Reason: diarrhea)
furosemide [Lasix] 20 mg tablet
20 mg PO DAILYPRN PRN (Reason: Weight gain)
Rx Instructions:
PRN for weight gain more than 3 lb overnight or more than 5 lb in 1 week or LE swelling
simethicone 80 mg tablet,chewable
80 mg PO QIDPRN PRN (Reason: gas)
No Action
ferrous sulfate 325 mg (65 mg iron) tablet
325 mg PO DAILY@1300
mesalamine [Canasa] 1,000 mg suppository
1 g WI HS
Discharge Orders:
Discharge Patient (As Directed); Ordered 05/28/24
Ordered By: Aj Ruvalcaba
Discharge Date and Time
Discharge Date/Time: 05/28/24 14:04
Print Language: IVORIAN
[2024-05-28 12:36] VITALS: BP 113/49
--- NOTE | 2024-05-28 16:45 | CM ---
Patient is for discharge to home today.
Plan; Home today
== END 2024-05-28 14:04 | disposition home or self-care (01) | DRG 920 ==
LOC: 3 WEST ACU 14:02
PROVIDERS: Internal Medicine; Physician Assistant Medical; ADMITTING PHYSICIAN Hospitalist; ATTENDING PHYSICIAN Family Medicine; EMERGENCY PHYSICIAN Emergency Medicine; FAMILY PHYSICIAN Family Medicine; OTHER PHYSICIAN Surgery
PROC: 30233N1 Transfusion of Nonautologous Red Blood Cells into Peripheral Vein, Percutaneous Approach (ICD-10-PCS; 2024-05-22)
PROC: 0DJD8ZZ Inspection of Lower Intestinal Tract, Via Natural or Artificial Opening Endoscopic (ICD-10-PCS; 2024-05-26)
DX: K91.840 Postprocedural hemorrhage of a digestive system organ or structure following a digestive system procedure (principal); D68.32 Hemorrhagic disorder due to extrinsic circulating anticoagulants; K62.5 Hemorrhage of anus and rectum; I50.32 Chronic diastolic (congestive) heart failure; Q61.3 Polycystic kidney, unspecified; N30.00 Acute cystitis without hematuria; R18.8 Other ascites; K62.7 Radiation proctitis; Y83.2 Surgical operation with anastomosis, bypass or graft as the cause of abnormal reaction of the patient, or of later complication, without mention of misadventure at the time of the procedure; Y92.9 Unspecified place or not applicable; I35.0 Nonrheumatic aortic (valve) stenosis; Y84.2 Radiological procedure and radiotherapy as the cause of abnormal reaction of the patient, or of later complication, without mention of misadventure at the time of the procedure; I48.0 Paroxysmal atrial fibrillation; E03.9 Hypothyroidism, unspecified; K74.60 Unspecified cirrhosis of liver; I11.0 Hypertensive heart disease with heart failure; I25.10 Atherosclerotic heart disease of native coronary artery without angina pectoris; E05.90 Thyrotoxicosis, unspecified without thyrotoxic crisis or storm; F32.A Depression, unspecified; D35.02 Benign neoplasm of left adrenal gland; D35.01 Benign neoplasm of right adrenal gland; I71.43 Infrarenal abdominal aortic aneurysm, without rupture; Z60.2 Problems related to living alone; Z66 Do not resuscitate; Z79.01 Long term (current) use of anticoagulants; Z85.048 Personal history of other malignant neoplasm of rectum, rectosigmoid junction, and anus; Z87.891 Personal history of nicotine dependence; Z92.21 Personal history of antineoplastic chemotherapy; Z92.3 Personal history of irradiation; Z95.2 Presence of prosthetic heart valve; Z88.0 Allergy status to penicillin; Z88.8 Allergy status to other drugs, medicaments and biological substances
CPT/HCPCS: 36430; 74174; 80048; 80053; 80076; 81003; 81015; 83735; 84100; 84132; 84439; 84443; 84481; 85014; 85018; 85025; 85027; 85610; 85730; 86803; 86850; 86900; 86901; 86920; 93005; 96361; 96374; 99291; J7168; P9016; Q9967

== ENCOUNTER 2024-05-29 15:09 | Inpatient (IN) | payer MEDICARE, SELFPAY ==
[2024-05-29] VITALS (9 sets, daily range): BP systolic 96–143; BP diastolic 36–79; BMI 25.4; BMI 25.1
--- NOTE | 2024-05-29 12:41 | ED.GENMED ---
History of Present Illness
General
Chief Complaint: Rectal Bleeding
Source: patient
Exam Limitations: none
Time Seen by Provider: 05/29/24 12:22
History of Present Illness
History of Present Illness:
79-year-old female presents for recurrent rectal bleeding. She notes it is red rectal bleeding. She was just discharged from the hospital for the same. She has a history of recent reanastomosis procedure. She is on Eliquis. While here and
admitted she had a colonoscopy which demonstrated no active bleeding from the anastomosis. She restarted the Eliquis 2 days ago. Her last dose was last evening however she noticed having at least 5 episodes of red rectal bleeding overnight and
into this morning. She denies significant abdominal pain. She denies lightheadedness or shortness of breath. She spoke with her colorectal specialist who advised she come in for admission
Past History
Past History
ED Past Medical History: Arrthythmia, Cancer, CHF, Valvular disease, Hypothyroidism and Other (Aortic stenosis)
ED Past Surgical History: Appendectomy, Tonsilectomy and Other (Laparoscopy with cyst aspiration)
Social History
Tobacco: Former smoker
Alcohol: None
Drug: None
Personal: Single
Living: with family
Phy Exam
Physical Exam
Physical Exam:
General: Pale appearing female no acute respiratory distress
HEENT: Normocephalic atraumatic
Heart: Regular rate and rhythm lungs: Clear no wheeze
Abdomen soft no specific tenderness no guarding rebound vascular disease as well as
Rectal exam performed with female spring tier in room. There is external hemorrhoids without active bleeding but there is red blood in the rectal vault.
Extremities: No cyanosis
Course
Orders/Labs/Results
Orders:
Orders
05/29/24 12:45
Type+Screen Urgent
Complete Blood Count/With Diff Urgent
Comprehensive Metabolic Panel Urgent
PTT Urgent
Abnormal Lab Results
05/29/24
12:45
RBC 2.97 L 10^6/uL
(4.20-5.40)
Hgb 8.9 L g/dL
(12.0-16.0)
Hct 28.3 L %
(37.0-47.0)
MCHC 31.4 L g/dL
(33.0-37.0)
RDW 18.3 H %
(11.5-14.5)
Absolute Lymphs (auto) 0.6 L 10^3/uL
(1.2-3.4)
Neutrophils % 83.2 H %
(42.2-75.2)
Lymphocytes % 9.6 L %
(20.5-51.1)
APTT 41.6 H Sec
(23.4-35.0)
BUN 19 H mg/dl
(7-17)
Creatinine 1.3 H mg/dL
(0.6-1.0)
05/29/24 12:45
05/29/24 12:45
Vital Signs
Initial and Last Documented VS:
Initial Vital Signs
Temp Pulse Resp BP Pulse Ox
97.8 F 97 16 143/68 98
05/29/24 12:08 05/29/24 12:08 05/29/24 12:08 05/29/24 12:08 05/29/24 12:08
Last Documented Vital Signs
Temp Pulse Resp BP Pulse Ox
98.5 F 59 20 117/60 97
05/29/24 12:43 05/29/24 12:43 05/29/24 12:43 05/29/24 12:43 05/29/24 12:43
MDM/Problems Addressed
Differential Diagnosis Includes:
Recurrent rectal bleeding. Will recheck labs. Last dose of Eliquis last evening. Will hold Eliquis for now. Have low threshold for admission given recent discharge and anticoagulated state
Vital signs currently stable
*Critical Care Note
Total Time (30-74mins, 75-104mins- exclusive of procedures): Not Applicable
Update Note
Update Note:
Hemoglobin 8.9. Vital signs remained stable. Admitted to hospitalist. Colorectal where
ED Attending Note
-
Portions of this chart may have been created with voice recognition software.� Occasional wrong word or��sound alike� substitutions may have occurred due to the inherent limitations of voice recognition software.
Discharge Plan
Departure
Patient Disposition: Admit
Date of Disposition: 05/29/24
Time of Disposition: 13:43
Admit to: Telemetry
Presentation/result/management discussed w/ accepting MD/DO: Hospitalist
Discharge Problem:
Acute GI bleeding
Prescriptions:
No Action
cyanocobalamin (vitamin B-12) [Vitamin B-12] 1,000 mcg Tablet
1,000 mcg PO DAILY@1300 Qty: 0
vitamin B complex Tablet
1 tab PO DAILY@1300
biotin 10,000 mcg Capsule
10,000 mcg PO DAILY@1300
methimazole 10 mg Tablet
5 mg PO DAILY
ascorbic acid (vitamin C) [Vitamin C] 1,000 mg Tablet
1,000 mg PO DAILY@1300
quercetin 500 mg Capsule
500 mg PO DAILY@1300
BoneUp 333 mg-8.3 mcg-116.7 mg Capsule
2 cap PO DAILY
Collagen 1500 Plus C 500 mg-800 mcg- 50 mg Capsule
2 cap PO DAILY@1300
amiodarone 200 mg tablet
200 mg PO DAILY Qty: 0 0RF
Eliquis 5 mg tablet
5 mg PO BID Qty: 0 0RF
acetaminophen 325 mg tablet
650 mg PO Q4HPRN PRN (Reason: mild pain) Qty: 1 0RF
therapeutic multivitamin Tablet
1 tab PO DAILY
potassium chloride 10 mEq Tablet Extended Release
10 meq PO Q48H
BoneUp 333 mg-8.3 mcg-116.7 mg Capsule
1 cap PO HS
loperamide 2 mg Tablet
2 mg PO BIDPRN PRN (Reason: diarrhea)
furosemide [Lasix] 20 mg tablet
20 mg PO DAILYPRN PRN (Reason: Weight gain)
Rx Instructions:
PRN for weight gain more than 3 lb overnight or more than 5 lb in 1 week or LE swelling
simethicone 80 mg tablet,chewable
80 mg PO QIDPRN PRN (Reason: gas)
ferrous sulfate 325 mg (65 mg iron) tablet
325 mg PO DAILY@1300
mesalamine [Canasa] 1,000 mg suppository
1 g [place] HS
Interventions
Interventions:
*Risk Screen - Suicide Last Done: 05/29/24 12:08
*General Assessment Last Done: 05/29/24 12:43
*Neglect/Abuse Screening Last Done: 05/29/24 12:08
ED- Fall Risk Assessment Last Done: 05/29/24 12:43
*ED COVID-19 Vaccine History Last Done: 05/29/24 12:43
IC-Apytth-Btftjqbzpq Assessment Last Done: 05/29/24 12:43
ED- Cardiac Assessment Last Done: 05/29/24 12:43
ED- Pulmonary Assessment Last Done: 05/29/24 12:43
Discharge Date and Time
Print Language: SYRIAC
[2024-05-29 13:02] LABS: % Basophils 0.6 % (0-2); % Eosinophils 0.9 % (0-6); % Immature Granulocytes 0.5 % (0-0.5); % Lymphocytes 9.6 % (20.5-51.1); % Monocytes 5.2 % (1.7-9.3); % Neutrophils 83.2 % (42.2-75.2); Absolute Eosinophils 0.1 10^3/uL (0-0.7); Absolute Lymphocytes 0.6 10^3/uL (1.2-3.4); Absolute Monocytes 0.3 10^3/uL (0.1-0.6); Absolute Neutrophils 5.4 10^3/uL (1.4-6.5); Hematocrit 28.3 % (37.0-47.0); Hemoglobin 8.9 g/dL (12.0-16.0); Mean Corp Hgb Conc. 31.4 g/dL (33.0-37.0); Mean Corpuscular Volume 95.3 fL (81.0-99.0); Nucleated Red Blood Cells % 0 %; Platelet Count 237 10^3/uL (130-400); Red Blood Cell Count 2.97 10^6/uL (4.20-5.40); Red Cell Dist. Width 18.3 % (11.5-14.5); White Blood Cell Count 6.5 10^3/uL (4.8-10.8)
[2024-05-29 13:04] LABS: ALT (SGPT) 14 U/L (0-35); AST (SGOT) 27 U/L (14-36); Albumin 3.7 g/dl (3.5-5.0); Alkaline Phosphatase 98 U/L (38-126); Blood Urea Nitrogen 19 mg/dl (7-17); Calcium 9.2 mg/dl (8.4-10.2); Carbon Dioxide 23 mmol/L (22-30); Chloride 107 mmol/L (98-107); Estimated Creatinine Clearance 28 ml/min; Glucose 84 mg/dl (70-99); Potassium 3.7 mmol/L (3.5-5.1); Sodium 142 mmol/L (135-145); Total Bilirubin 0.4 mg/dl (0.2-1.3); Total Protein 6.8 g/dl (6.3-8.2); eGFR 42.09
[2024-05-29 13:07] LABS: APTT 41.6 Sec (23.4-35.0)
--- NOTE | 2024-05-29 14:04 | HPS.HSE ---
Family Physician
-
Family Physician: Willie Ryan DO
Chief Complaint
-
Recurrent rectal bleeding
History of Present Illness
79-year-old female with a past medical history of atrial fibrillation on Eliquis, rectal cancer status post robotic ultra-low anterior resection and diverting ileostomy on 11/12/2023 and subsequent reversal, and s/p TAVR on 02/27/2024 who presents
with recurrent rectal bleeding. Patient was admitted on 05/22/2024 for rectal bleeding secondary to radiation-induced changes in the rectal mucosa. Her Eliquis was initially held, then resumed on the evening of 05/26/2024. She did not have any
recurrence of rectal bleeding on Eliquis, and was discharged home on 05/28/2024. She returns with 4 episodes of rectal bleeding that occurred since 10:30 pm last night, and last episode occurring at 4:30 am in the morning. She denies abdominal
pain, lightheadedness, dizziness. No chest pain, shortness of breath. No fever, no vomiting.
Medical History
Past Medical History
Past Medical History: Reports Other
Additional Past Medical History:
Rectal Cancer Stage IIIB s/p Chemotherapy/Radiation, and Resection with Diverting Ileostomy and Subsequent Reversal
Single Vessel Coronary Artery Disease
Paroxysmal Atrial Fibrillation
Valvular Heart Disease: Severe Aortic Stenosis s/p TAVR, Moderate Mitral Regurg, Mild/Moderate Tricuspid Regurg
Chronic HFpEF
Hyperthyroidism
Depression
Past Surgical History: Reports Other
Additional Past Surgical History:
Robotic Left Anterior Resection with Diverting Loop Ileostomy and Subsequent Reversal
Tonsillectomy
Appendectomy
Social History
Tobacco: Former Smoker (1ppd x 48 years)
Alcohol: None
Drug: None
Family History
Family History: Not pertinent
Allergies / Home Medications
Allergies reflects when Allergies were last updated in [employer].
Home Medications with original date entered in [employer]
Allergy/Medication List:
Allergies
Allergy/AdvReac Type Severity Reaction Status Date / Time
metoprolol Allergy Very low Verified 05/22/24 11:05
BP with
even low
doses of
metoprolol
Penicillins Allergy Hives Verified 05/22/24 11:05
Home Medications Table - record
�Medication �Instructions �Recorded �Confirmed
cyanocobalamin (vitamin B-12) 1,000 mcg PO DAILY@1300 Supplement 09/25/23 05/29/24
1,000 mcg tablet (Vitamin B-12) ##0
vitamin B complex 1 tab PO DAILY@1300 Supplement 09/25/23 05/29/24
ascorbic acid (vitamin C) 1,000 mg 1,000 mg PO DAILY@1300 Supplement 02/04/24 05/29/24
tablet (Vitamin C)
biotin 10,000 mcg capsule 10,000 mcg PO DAILY@1300 Supplement 02/04/24 05/29/24
calcium 333 mg-D3 8.3 2 cap PO DAILY Supplement 02/04/24 05/29/24
mcg-magnesium ox 116.7
mm-Q-G-minerals capsule (BoneUp)
methimazole 10 mg tablet 5 mg PO DAILY Thyroid 02/04/24 05/29/24
quercetin 500 mg capsule 500 mg PO DAILY@1300 Supplement 02/04/24 05/29/24
collagen,hydrolysate 500 mg-biotin 2 cap PO DAILY@1300 Supplement 04/10/24 05/29/24
800 mcg-ascorbic acid 50 mg
capsule (Collagen 1500 Plus C)
acetaminophen 325 mg tablet 650 mg (2 x 325 mg) PO Q4HPRN PRN 04/26/24 05/29/24
mild pain #1 tab
amiodarone 200 mg tablet 200 mg PO DAILY Arrhythmia #0 tabs 04/26/24 05/29/24
apixaban 5 mg tablet (Eliquis) 5 mg PO BID Blood clot 04/26/24 05/29/24
prevention/tx #0 tabs
calcium 333 mg-D3 8.3 1 cap PO HS Supplement 05/06/24 05/29/24
mcg-magnesium ox 116.7
mt-I-P-minerals capsule (BoneUp)
potassium chloride 10 mEq 10 meq PO Q48H Electrolyte 05/06/24 05/29/24
tablet,extended release Repletion
therapeutic multivitamin 1 tab PO DAILY Supplement 05/06/24 05/29/24
furosemide 20 mg tablet (Lasix) 20 mg PO DAILYPRN PRN Weight gain 05/22/24 05/29/24
loperamide 2 mg tablet 2 mg PO BIDPRN PRN diarrhea 05/22/24 05/29/24
simethicone 80 mg chewable tablet 80 mg PO QIDPRN PRN gas 05/22/24 05/29/24
ferrous sulfate 325 mg (65 mg 325 mg PO DAILY@1300 Supplement 05/29/24 05/29/24
iron) tablet
mesalamine 1,000 mg rectal 1 g MA HS x 21 days from 05/28/24 05/29/24 05/29/24
suppository (Canasa)
Review of Systems
-
A 12 point ROS was completed and negative except as noted: Yes
Physical Exam
Vital Signs
Vital Signs
Temp Pulse Resp BP Pulse Ox
98.5 F 59 20 117/60 97
05/29/24 12:43 05/29/24 12:43 05/29/24 12:43 05/29/24 12:43 05/29/24 12:43
Physical Exam
General: Well Developed, Well Nourished and No Apparent Distress
HEENT: NormoCephalic, Anicteric and Moist mucous membranes
Respiratory: Clear
Cardiac: S1/S2 and Regular Rhythm
GI: Soft, Non Tender, Non Distended and Normal Bowel Sounds
Musculoskeletal: Edema, Right Upper Extremity and Edema, Right Lower Extremity
Skin: Warm and Dry
Neuro: Awake, Alert and Oriented
Psych: Calm
Laboratory Results
-
05/29/24 12:45
05/29/24 12:45
Laboratory Results
APTT 41.6 Sec (23.4-35.0) H 05/29/24 12:45
Total Bilirubin 0.4 mg/dl (0.2-1.3) 05/29/24 12:45
AST 27 U/L (14-36) 05/29/24 12:45
ALT 14 U/L (0-35) 05/29/24 12:45
Alkaline Phosphatase 98 U/L (38-126) 05/29/24 12:45
Impression/Plan
-
HPI: 79-year-old female with a past medical history of atrial fibrillation on Eliquis, rectal cancer status post robotic ultra-low anterior resection and diverting ileostomy on 11/12/2023 and subsequent reversal, and s/p TAVR on 02/27/2024 who
presents with recurrent rectal bleeding. Patient was admitted on 05/22/2024 for rectal bleeding secondary to radiation-induced changes in the rectal mucosa. Her Eliquis was initially held, then resumed on the evening of 05/26/2024. She did not
have any recurrence of rectal bleeding on Eliquis, and was discharged home on 05/28/2024. She returns with 4 episodes of rectal bleeding that occurred since 10:30 pm last night, and last episode occurring at 4:30 am in the morning. She denies
abdominal pain, lightheadedness, dizziness. No chest pain, shortness of breath. No fever, no vomiting.
#Recurrent rectal bleeding exacerbated by eliquis
#Radiation-induced changes in the rectal mucosa
Recently discharged 05/28/24 after resuming eliquis 05/26/24 evening without any recurrence of rectal bleeding
05/26/24 c-scope shows moderate radiation changes of the distal rectal mucosa, no active bleeding, normal anastomosis
Hold eliquis, colorectal surg following, c/s cardiology
Continue canasa suppositories, trend Hbg
#Recent subacute blood loss anemia requiring 3 units of packed red blood cells
Trend hemoglobin, continue iron supplements
# s/p TAVR
#Afib, paroxysmal
Continue amiodarone
Hold Eliquis, c/s cardiology
#JAKY
Creatinine 1.3 today, was 0.9 a few days ago
Give IV fluids for 1 L
#History of rectal cancer status post resection
#Large L renal cyst 2/2 polycystic kidney disease
#Bilateral renal adenomas
Follow-up with nephrology outpatient
#Hyperthyroidism
FT3 and FT4 mildly depressed
Continue methimazole
#Chronic HFpEF
Continue lasix as needed
#Mild hepatic cirrhosis
HepC Ab neg
Follow-up with GI outpatient
DVT prophylaxis�SCDs
DNR
Total time spent to see the patient on the floor, examine the patient, review data and lab results, discuss treatment plan with patient, nursing staff around 60 minutes.
--- NOTE | 2024-05-29 14:25 | CON.CRS ---
Consultation
-
Date/Time Consultation Requested: 05/29/2024, 13:30
Date/Time Consultation Performed: 05/29/2024, 14:30
Performing Provider: Arturo Tenorio MD
Reason for Consultation: rectal bleeding
Medical History
-
Chief Complaint: rectal bleeding
History of Present Illness:
79-year-old female, well-known to our service, presents with rectal bleeding overnight. The patient was recently hospitalized from 05/22/2024 through yesterday for a similar issue. The patient has an extensive past medical history which includes
rectal cancer status post robotic ultra-low anterior resection and diverting ileostomy on 11/12/2023 and subsequent reversal. Following the LAR, she underwent a TAVR on 02/27/2024. She is currently on Eliquis under the direction of cardiology. The
patient underwent a colonoscopy by Dr. Tenorio during her last hospital stay on 05/26/2024 which showed erythematous mucosa in the distal rectum otherwise normal. The patient had been started back on her Eliquis the following day and had had no real
bleeding until after she went home overnight. The patient states it happened 3 or 4 times and had large amount of 'nickel sized clots'. She currently is not bleeding. She denies abdominal pain. She denies nausea or vomiting. She denies fevers
or chills. In the ER her vital signs are normal. Her hemoglobin is 8.9, which is virtually unchanged from her previous admissions. Her last dose of Eliquis was last night. She has been admitted to medical service for further evaluation.
Past Medical History
Past Medical History: Other (Arrhythmias (PAF), Cancer (rectal), HTN, Hyperthyroidism and Valvular Disease (s/p TAVR))
Past Surgical History: Appendectomy, Tonsilectomy and Other (low anterior resection by Dr. Tenorio with ileostomy, ileostomy reversal, TAVR)
Social History
Tobacco: Former Smoker
Alcohol: None
Drug: None
Personal: Single
Family History
Family History: Reviewed & Not Pertinent
Allergies / Home Medications
Allergy/AdvReac Type Severity Reaction Status Date / Time
metoprolol Allergy Very low Verified 05/22/24 11:05
BP with
even low
doses of
metoprolol
Penicillins Allergy Hives Verified 05/22/24 11:05
�Medication �Instructions �Recorded �Confirmed �Type
cyanocobalamin (vitamin B-12) 1,000 mcg PO DAILY@1300 Supplement 09/25/23 05/29/24 History
1,000 mcg tablet (Vitamin B-12) ##0
vitamin B complex 1 tab PO DAILY@1300 Supplement 09/25/23 05/29/24 History
ascorbic acid (vitamin C) 1,000 mg 1,000 mg PO DAILY@1300 Supplement 02/04/24 05/29/24 History
tablet (Vitamin C)
biotin 10,000 mcg capsule 10,000 mcg PO DAILY@1300 Supplement 02/04/24 05/29/24 History
calcium 333 mg-D3 8.3 2 cap PO DAILY Supplement 02/04/24 05/29/24 History
mcg-magnesium ox 116.7
cq-V-P-minerals capsule (BoneUp)
methimazole 10 mg tablet 5 mg PO DAILY Thyroid 02/04/24 05/29/24 History
quercetin 500 mg capsule 500 mg PO DAILY@1300 Supplement 02/04/24 05/29/24 History
collagen,hydrolysate 500 mg-biotin 2 cap PO DAILY@1300 Supplement 04/10/24 05/29/24 History
800 mcg-ascorbic acid 50 mg
capsule (Collagen 1500 Plus C)
acetaminophen 325 mg tablet 650 mg (2 x 325 mg) PO Q4HPRN PRN 04/26/24 05/29/24 Rx
mild pain #1 tab
amiodarone 200 mg tablet 200 mg PO DAILY Arrhythmia #0 tabs 04/26/24 05/29/24 Rx
apixaban 5 mg tablet (Eliquis) 5 mg PO BID Blood clot 04/26/24 05/29/24 Rx
prevention/tx #0 tabs
calcium 333 mg-D3 8.3 1 cap PO HS Supplement 05/06/24 05/29/24 History
mcg-magnesium ox 116.7
yn-V-R-minerals capsule (BoneUp)
potassium chloride 10 mEq 10 meq PO Q48H Electrolyte 05/06/24 05/29/24 History
tablet,extended release Repletion
therapeutic multivitamin 1 tab PO DAILY Supplement 05/06/24 05/29/24 History
furosemide 20 mg tablet (Lasix) 20 mg PO DAILYPRN PRN Weight gain 05/22/24 05/29/24 History
loperamide 2 mg tablet 2 mg PO BIDPRN PRN diarrhea 05/22/24 05/29/24 History
simethicone 80 mg chewable tablet 80 mg PO QIDPRN PRN gas 05/22/24 05/29/24 History
ferrous sulfate 325 mg (65 mg 325 mg PO DAILY@1300 Supplement 05/29/24 05/29/24 History
iron) tablet
mesalamine 1,000 mg rectal 1 g MN HS x 21 days from 05/28/24 05/29/24 05/29/24 History
suppository (Canasa)
Review of Systems
-
History Source: Patient
All other systems: Negative unless noted
: Bleeding
A 10 point review of systems was completed, and was negative except as per HPI.
Physical Exam
Vital Signs
Temp 98.5 F 05/29/24 12:43
Pulse 59 05/29/24 12:43
Resp Rate 20 05/29/24 12:43
Blood pressure 117/60 05/29/24 12:43
SaO2 97 05/29/24 12:43
05/28/24 05/29/24 05/30/24
06:59 06:59 06:59
Actual Weight 62.823 kg
Body Mass Index (BMI) 25.4
Lab Results / Allergies
05/29/24 12:45
05/29/24 12:45
WBC 6.5 10^3/uL (4.8-10.8) 05/29/24 12:45
Hgb 8.9 g/dL (12.0-16.0) L 05/29/24 12:45
Hct 28.3 % (37.0-47.0) L 05/29/24 12:45
Plt Count 237 10^3/uL (130-400) D 05/29/24 12:45
Abs Immat Gran (auto) 0.0 10^3/uL (0-0.05) 05/29/24 12:45
Neutrophils % 83.2 % (42.2-75.2) H 05/29/24 12:45
Allergy/AdvReac Type Severity Reaction Status Date / Time
metoprolol Allergy Very low Verified 05/22/24 11:05
BP with
even low
doses of
metoprolol
Penicillins Allergy Hives Verified 05/22/24 11:05
Physical Exam
General: Well Developed, Well Nourished and No Apparent Distress
GI: Soft, Non Tender and Non Distended
Neuro: AO x 3
Psych: Calm
Data Reviewed
-
Labs: Labs Reviewed by me and Discussed with Patient
Old Records: Reviewed
Assessment / Plan
-
Assessment: Rectal bleeding
Plan:
-Admited to medicine service
-Trend labs
-No acute indications for surgery at this time
-Hold Eliquis
-Unfortunately, there are limited options for this patient regarding her rectal bleeding. Will follow.
--- NOTE | 2024-05-29 15:12 | CON.CAR ---
Addendum entered and electronically signed by Donny Sebastian MD 05/29/24 18:12:
79 yo female with PMH of paroxysmal A fib on amiodarone and eliquis, TAVR, LBBB, rectal cancer status post robotic low anterior resection and diverting loop ileostomy following chemoradiation then consolidation chemotherapy is admitted with
recurrent rectal bleeding. No CP/SOB. Exam with RRR, no murmurs, trace edema. Tele: ST 100-110s. Hgb 8.9.
Hold eliquis.
To discuss with EP if would be a candidate for Watchman, as this will require time back on eliquis.
Original Note:
Consultation
Consultation Request
Date/Time Consultation Requested: 05/29/2024 14:30
Date/Time Consultation Performed: 05/29/2024 14:50
Requesting Provider: Dr. Aj Ruvalcaba
Performing Provider: TIGIST Dueñas for Dr. Sebastian
Reason for Consultation: Rectal bleeding on apixaban
Medical History
-
Chief Complaint: BRBPR
History of Present Illness:
Pamela Drummond is a 79 year old female (known to Dr. Torres, her primary application support intern), with paroxysmal atrial fibrillation (on amiodarone/Eliquis), severe aortic stenosis s/p TAVR, LBBB, hyperthyroidism, rectal cancer status post robotic low
anterior resection and diverting loop ileostomy following chemoradiation then consolidation chemotherapy now status post ileostomy reversal who presented with BRBPR. She had a recent admission 05/22/2024 - 05/28/2024 with acute blood loss anemia
secondary to rectal bleeding exacerbated by apixaban. She had been home less than 24 hours until she presented back to the emergency room. Her last dose of apixaban was 05/28/2024 in the evening. She denies chest pain, shortness of breath, and
dizziness.
Past Medical History
Past Medical History: Arrhythmias (Paroxysmal atrial fibrillation [on amiodarone]), Cancer (Colorectal), Hyperthyroidism, Valvular Disease (Severe s/p TAVR) and Other (LBBB)
Social History
Tobacco: Non-Smoker
Alcohol: None
Drug: None
Employment: Retired
Family History
Family History: Reviewed & Not Pertinent
Allergies / Home Medications
Allergy/AdvReac Type Severity Reaction Status Date / Time
metoprolol Allergy Very low Verified 05/22/24 11:05
BP with
even low
doses of
metoprolol
Penicillins Allergy Hives Verified 05/22/24 11:05
�Medication �Instructions �Recorded �Confirmed �Type
cyanocobalamin (vitamin B-12) 1,000 mcg PO DAILY@1300 Supplement 09/25/23 05/29/24 History
1,000 mcg tablet (Vitamin B-12) ##0
vitamin B complex 1 tab PO DAILY@1300 Supplement 09/25/23 05/29/24 History
ascorbic acid (vitamin C) 1,000 mg 1,000 mg PO DAILY@1300 Supplement 02/04/24 05/29/24 History
tablet (Vitamin C)
biotin 10,000 mcg capsule 10,000 mcg PO DAILY@1300 Supplement 02/04/24 05/29/24 History
calcium 333 mg-D3 8.3 2 cap PO DAILY Supplement 02/04/24 05/29/24 History
mcg-magnesium ox 116.7
vd-E-D-minerals capsule (BoneUp)
methimazole 10 mg tablet 5 mg PO DAILY Thyroid 02/04/24 05/29/24 History
quercetin 500 mg capsule 500 mg PO DAILY@1300 Supplement 02/04/24 05/29/24 History
collagen,hydrolysate 500 mg-biotin 2 cap PO DAILY@1300 Supplement 04/10/24 05/29/24 History
800 mcg-ascorbic acid 50 mg
capsule (Collagen 1500 Plus C)
acetaminophen 325 mg tablet 650 mg (2 x 325 mg) PO Q4HPRN PRN 04/26/24 05/29/24 Rx
mild pain #1 tab
amiodarone 200 mg tablet 200 mg PO DAILY Arrhythmia #0 tabs 04/26/24 05/29/24 Rx
apixaban 5 mg tablet (Eliquis) 5 mg PO BID Blood clot 04/26/24 05/29/24 Rx
prevention/tx #0 tabs
calcium 333 mg-D3 8.3 1 cap PO HS Supplement 05/06/24 05/29/24 History
mcg-magnesium ox 116.7
cp-Z-O-minerals capsule (BoneUp)
potassium chloride 10 mEq 10 meq PO Q48H Electrolyte 05/06/24 05/29/24 History
tablet,extended release Repletion
therapeutic multivitamin 1 tab PO DAILY Supplement 05/06/24 05/29/24 History
furosemide 20 mg tablet (Lasix) 20 mg PO DAILYPRN PRN Weight gain 05/22/24 05/29/24 History
loperamide 2 mg tablet 2 mg PO BIDPRN PRN diarrhea 05/22/24 05/29/24 History
simethicone 80 mg chewable tablet 80 mg PO QIDPRN PRN gas 05/22/24 05/29/24 History
ferrous sulfate 325 mg (65 mg 325 mg PO DAILY@1300 Supplement 05/29/24 05/29/24 History
iron) tablet
mesalamine 1,000 mg rectal 1 g GA HS x 21 days from 05/28/24 05/29/24 05/29/24 History
suppository (Canasa)
Review of Systems
-
History Source: Patient
All other systems: Negative unless noted
Constitutional: No Symptoms
EENT: No Symptoms
Respiratory: No Symptoms
Cardiac: No Symptoms
Abdomen/GI: Bloody Stools
: No Symptoms
Musculoskeletal: No Symptoms
Skin: No Symptoms
Neurological: No Symptoms
Endocrine: No Symptoms
Hematologic/Lymphatic: No Symptoms
Physical Exam
Vital Signs
Temp Pulse Resp BP Pulse Ox
98.5 F 59 20 117/60 97
05/29/24 12:43 05/29/24 12:43 05/29/24 12:43 05/29/24 12:43 05/29/24 12:43
Lab Results
05/29/24 12:45
05/29/24 12:45
Physical Exam
General: Well Developed, Well Nourished, No Apparent Distress and Comfortable
HEENT: Normocephalic, Anicteric and Moist Mucous Membranes
Respiratory: Clear and Non Labored Respirations
Cardiac: S1/S2 and Regular Rhythm
Breast: Deferred by me
GI: Soft, Non Tender, Non Distended and Normal Bowel Sounds
Rectal: Deferred by Provider
Genito-urinary: No Costovertebral Tender
Musculoskeletal: No Clubbing, No Cyanosis and No Edema
Skin: Warm and Dry
Neuro: AO x 3
Hematologic/Lymphatic: No Lymphadenopathy
Psych: Calm
Impression / Plan
-
BRBPR
-Hold apixaban
-CRS following
Paroxysmal atrial fibrillation
-Maintaining sinus on amiodarone
-Oral Anticoagulation: Apixaban on hold
-[id number]: score at least 4 (age 75 or more, Vascular disease, female gender)
-The plan was for eventual ablation however she keeps having rectal bleeding
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
LBBB
CAD, cath 01/2024: 80-90% non-dominant RCA, luminals elsewhere
Data Reviewed
-
EKG: Report Reviewed by me (Sinus rhythm, LBBB, rate 62)
Medical Tests (Nuc Med, Echo etc): Report Reviewed by me (Echo as above)
Labs: Labs Reviewed by me
Old Records: Reviewed
--- NOTE | 2024-05-29 15:20 | EDRN ---
this RN called the receiving unit and notified them that paper report was sent
--- NOTE | 2024-05-29 16:45 | PTCARENOTE ---
1640 Pt arrived from ER via stretcher alert and oriented x 3. Place on heart monitor normal sinus rhythm. VS stable. Pt denies discomfort and no further rectal bleeding at this time. Noted MD orders, continue to monitor pt closely.
[2024-05-29] MEDS: NSS 1000 IV (18:48)
[2024-05-29] MEDS: ROWASA, CANASA SUPPOSITORY 1000 MG RECTAL (20:09)
[2024-05-30] VITALS (8 sets, daily range): BP systolic 97–154; BP diastolic 42–59; BMI 25.4
--- NOTE | 2024-05-30 08:05 | W.PN.HOSP.TC ---
Today's Communication/Plan
-
Transfuse 1 unit of blood today
Assessment / Plan
Assessment / Plan
79-year-old female with a past medical history of atrial fibrillation on Eliquis, rectal cancer status post robotic ultra-low anterior resection and diverting ileostomy on 11/12/2023 and subsequent reversal, and s/p TAVR on 02/27/2024 who presents
with recurrent rectal bleeding. Patient was admitted on 05/22/2024 for rectal bleeding secondary to radiation-induced changes in the rectal mucosa. Her Eliquis was initially held, then resumed on the evening of 05/26/2024. She did not have any
recurrence of rectal bleeding on Eliquis, and was discharged home on 05/28/2024. She returns with 4 episodes of rectal bleeding that occurred since 10:30 pm last night, and last episode occurring at 4:30 am in the morning. She denies abdominal
pain, lightheadedness, dizziness. No chest pain, shortness of breath. No fever, no vomiting.
#Recurrent rectal bleeding exacerbated by eliquis
#Radiation-induced changes in the rectal mucosa
Recently discharged 05/28/24 after resuming eliquis 05/26/24 evening without any recurrence of rectal bleeding
05/26/24 c-scope shows moderate radiation changes of the distal rectal mucosa, no active bleeding, normal anastomosis
Hold eliquis, colorectal surg following, c/s cardiology
Continue canasa suppositories, trend Hbg
# Acute blood loss anemia exacerbated by Eliquis
Hemoglobin 6.6 today, was 8.9 upon admission
Transfuse 1 unit today
Trend hemoglobin, continue iron supplements
# s/p TAVR
#Afib, paroxysmal
Continue amiodarone
Hold Eliquis, cardiology following for possible consideration of Watchman device
#JAKY
Resolved status post IV fluids
#History of rectal cancer status post resection
#Large L renal cyst 2/2 polycystic kidney disease
#Bilateral renal adenomas
Follow-up with nephrology outpatient
#Hyperthyroidism
FT3 and FT4 mildly depressed
Continue methimazole
#Chronic HFpEF
Continue lasix as needed
#Mild hepatic cirrhosis
HepC Ab neg
Follow-up with GI outpatient
DVT prophylaxis�SCDs
DNR
Total time spent to see the patient on the floor, examine the patient, review data and lab results, discuss treatment plan with patient, nursing staff around 50 minutes.
Physical Exam
General: No acute distress
HEENT: Normocephalic, Atraumatic, EOMI, MMM
Respiratory: Clear to Auscultation bilaterally
Cardiac: Normal S1/S2, Regular Rate and Rhythm
GI: Soft, Nontender, Nondistended, Normal Bowel Sounds
Extremities: No Clubbing, Cyanosis, or Edema
Neuro: Nonfocal/Grossly Intact
Psych: Calm, Cooperative
Derm: No Visible lesions
Anticipated Discharge: > 48 hours
Subjective/Interval History
-
Date of Service: May 30, 2024
Patient had 2 more episodes of rectal bleeding since admission. No lightheadedness, no dizziness. No chest pain, no shortness of breath. No fever, no vomiting.
Objective Data
-
Labs:
Laboratory Results
05/30/24
06:29
WBC Pending
Hgb Pending
Hct Pending
Plt Count Pending
Sodium Pending
Potassium Pending
Chloride Pending
Carbon Dioxide Pending
BUN Pending
Creatinine Pending
Glucose Pending
Calcium Pending
Vital Signs:
Vital Signs
Temp Pulse Resp BP Pulse Ox
97.6 F 60 20 104/50 99
05/30/24 03:25 05/30/24 03:25 05/30/24 03:25 05/30/24 03:25 05/30/24 03:25
I&O
05/29/24 05/30/24 05/31/24
06:59 06:59 06:59
Intake Total 480 / 480
Balance 480 / 480
[2024-05-30 08:12] LABS: Blood Urea Nitrogen 18 mg/dl (7-17); Calcium 8.4 mg/dl (8.4-10.2); Carbon Dioxide 23 mmol/L (22-30); Chloride 111 mmol/L (98-107); Estimated Creatinine Clearance 37 ml/min; Glucose 81 mg/dl (70-99); Magnesium 1.8 mg/dl (1.6-2.3); Potassium 3.7 mmol/L (3.5-5.1); Sodium 141 mmol/L (135-145); eGFR 57.66
[2024-05-30 08:28] LABS: Hematocrit 21.4 % (37.0-47.0); Hemoglobin 6.6 g/dL (12.0-16.0); Mean Corp Hgb Conc. 30.8 g/dL (33.0-37.0); Mean Corpuscular Hgb 29.9 pg (27.0-31.0); Mean Corpuscular Volume 96.8 fL (81.0-99.0); Red Blood Cell Count 2.21 10^6/uL (4.20-5.40); Red Cell Dist. Width 18.2 % (11.5-14.5); White Blood Cell Count 4.5 10^3/uL (4.8-10.8)
[2024-05-30] MEDS: TAPAZOLE 5 MG PO (09:13)
[2024-05-30] MEDS: THERAGRAN 1 TABLET PO (09:13)
[2024-05-30] MEDS: PACERONE 200 MG PO (09:13)
[2024-05-30 09:15] LABS: Mean Platelet Volume 10.3 fL (7.4-10.4); Platelet Count 162 10^3/uL (130-400)
--- NOTE | 2024-05-30 11:18 | CM ---
CM reviewed chart, patient seen bedside, initial assessment completed, patient hard of hearing. Patient resides alone, third floor apartment, elevator access. Patient reports she has a rollator at home, does not need/use it. Patient confirms [facility]
VN in past, [facility] in past. Patient confirms PCP Willie Ryan, pharmacy [facility], does not have prescription coverage. Patient denies insecurities at home. CM will continue to follow for all discharge planning needs.
Plan; home no needs, watch for possible VN needs.
[2024-05-30] MEDS: VITAMIN C 1000 MG PO (12:43)
[2024-05-30] MEDS: FEOSOL 325 MG PO (12:43)
--- NOTE | 2024-05-30 17:09 | W.PN.CD ---
Today's Communication / Plan
-
Holding apixaban, trend Hgb
cont amiodarone
Impression / Plan
-
BRBPR with acute blood anemia, severe, requiring pRBC
-Holding apixaban, trend Hgb
-CRS following
Paroxysmal atrial fibrillation
-Maintaining sinus on amiodarone
-Oral Anticoagulation: Apixaban on hold
-[id number]: score at least 4 (age 75 or more, Vascular disease, female gender)
-The plan was for eventual ablation however she keeps having rectal bleeding
-to get EP input on Watchman
-she is undergoing colorectal procedure on 05/30, which may help with the bleeding
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
LBBB
CAD, cath 01/2024: 80-90% non-dominant RCA, luminals elsewhere
Physical Exam
Vital Signs/Labs
Vital Signs
Temp Pulse Resp BP Pulse Ox
98.2 F 59 20 121/55 96
05/30/24 15:31 05/30/24 15:31 05/30/24 15:31 05/30/24 15:31 05/30/24 15:31
05/29/24 05/30/24 05/31/24
06:59 06:59 06:59
Actual Weight 62.823 kg
05/30/24 06:29
05/30/24 06:29
APTT 41.6 Sec (23.4-35.0) H 05/29/24 12:45
Magnesium 1.8 mg/dl (1.6-2.3) 05/30/24 06:29
Physical Exam
Constitutional: No acute distress
EENT: Moist mucous membranes
Cardiovascular: Rhythm & rate is regular, JVD pressure is normal, Systolic murmur absent and Pedal edema present
Respiratory: Respiratory effort normal
Neuro/Psych: AO x 3
Data Reviewed
-
Date of Service: May 30, 2024
EKG: Other (Tele: SR/ST)
Labs: Labs Reviewed by me
[2024-05-30] MEDS: ROWASA, CANASA SUPPOSITORY 1000 MG RECTAL (20:27)
[2024-05-31] VITALS (14 sets, daily range): BP systolic 14–142; BP diastolic 44–84; BMI 25.4
[2024-05-31 07:15] LABS: Hematocrit 24.3 % (37.0-47.0); Hemoglobin 7.5 g/dL (12.0-16.0); Mean Corp Hgb Conc. 30.9 g/dL (33.0-37.0); Mean Corpuscular Hgb 29.5 pg (27.0-31.0); Mean Corpuscular Volume 95.7 fL (81.0-99.0); Mean Platelet Volume 10.5 fL (7.4-10.4); Platelet Count 150 10^3/uL (130-400); Red Blood Cell Count 2.54 10^6/uL (4.20-5.40); Red Cell Dist. Width 18.2 % (11.5-14.5); White Blood Cell Count 5.1 10^3/uL (4.8-10.8)
[2024-05-31 07:55] LABS: Blood Urea Nitrogen 19 mg/dl (7-17); Calcium 8.6 mg/dl (8.4-10.2); Carbon Dioxide 23 mmol/L (22-30); Chloride 112 mmol/L (98-107); Estimated Creatinine Clearance 37 ml/min; Glucose 79 mg/dl (70-99); Sodium 143 mmol/L (135-145); eGFR 57.66
[2024-05-31] MEDS: THERAGRAN 1 TABLET PO (07:57)
[2024-05-31] MEDS: PACERONE 200 MG PO (07:57)
[2024-05-31] MEDS: TAPAZOLE 5 MG PO (07:58)
--- NOTE | 2024-05-31 08:46 | W.PN.HOSP.TC ---
Today's Communication/Plan
-
see bold
Assessment / Plan
Assessment / Plan
79-year-old female with a past medical history of atrial fibrillation on Eliquis, rectal cancer status post robotic ultra-low anterior resection and diverting ileostomy on 11/12/2023 and subsequent reversal, and s/p TAVR on 02/27/2024 who presents
with recurrent rectal bleeding. Patient was admitted on 05/22/2024 for rectal bleeding secondary to radiation-induced changes in the rectal mucosa. Her Eliquis was initially held, then resumed on the evening of 05/26/2024. She did not have any
recurrence of rectal bleeding on Eliquis, and was discharged home on 05/28/2024. She returns with 4 episodes of rectal bleeding that occurred since 10:30 pm last night, and last episode occurring at 4:30 am in the morning. She denies abdominal
pain, lightheadedness, dizziness. No chest pain, shortness of breath. No fever, no vomiting.
#Recurrent rectal bleeding exacerbated by eliquis
#Radiation-induced changes in the rectal mucosa
Recently discharged 05/28/24 after resuming eliquis 05/26/24 evening without any recurrence of rectal bleeding
05/26/24 c-scope shows moderate radiation changes of the distal rectal mucosa, no active bleeding, normal anastomosis
Appreciate colorectal surgery input, status post rectum exam under anesthesia with topical formalin treatment 05/31/24
Hold eliquis, continue canasa suppositories, trend Hbg
# Acute blood loss anemia exacerbated by Eliquis
She received a total of 3 units of packed red blood cells last week
Hemoglobin 7.5, status post 1 unit packed red blood cells 05/30, improved from 6.6, was 8.9 upon admission
Transfuse a second unit 05/31
Trend hemoglobin, continue iron supplements
# s/p TAVR
#Afib, paroxysmal
Continue amiodarone
Hold Eliquis, cardiology following for possible consideration of Watchman device
#JAKY
Resolved status post IV fluids
#History of rectal cancer status post resection
#Large L renal cyst 2/2 polycystic kidney disease
#Bilateral renal adenomas
Follow-up with nephrology outpatient
#Hyperthyroidism
FT3 and FT4 mildly depressed
Continue methimazole
#Chronic HFpEF
Continue lasix as needed
#Mild hepatic cirrhosis
HepC Ab neg
Follow-up with GI outpatient
DVT prophylaxis�SCDs
DNR
Total time spent to see the patient on the floor, examine the patient, review data and lab results, discuss treatment plan with patient, nursing staff around 40 minutes.
Physical Exam
General: No acute distress
HEENT: Normocephalic, Atraumatic, EOMI, MMM
Respiratory: Clear to Auscultation bilaterally
Cardiac: Normal S1/S2, Regular Rate and Rhythm
GI: Soft, Nontender, Nondistended, Normal Bowel Sounds
Extremities: No Clubbing, Cyanosis, or Edema
Neuro: Nonfocal/Grossly Intact
Psych: Calm, Cooperative
Derm: No Visible lesions
Anticipated Discharge: 24 - 48 hours
Subjective/Interval History
-
Date of Service: May 31, 2024
Patient had a few episodes of small clots overnight. She is back from the OR. She feels tired. No fever, no vomiting.
Objective Data
-
Labs:
Laboratory Results
05/31/24
07:04
WBC 5.1
Hgb 7.5 L
Hct 24.3 L
Plt Count 150
Sodium 143
Potassium 4.0
Chloride 112 H
Carbon Dioxide 23
BUN 19 H
Creatinine 1.0
Glucose 79
Calcium 8.6
Vital Signs:
Vital Signs
Temp Pulse Resp BP Pulse Ox
97.8 F 55 18 91/48 100
05/31/24 07:51 05/31/24 07:51 05/31/24 07:51 05/31/24 07:57 05/31/24 07:51
I&O
05/30/24 05/31/24 06/01/24
06:59 06:59 06:59
Intake Total 480 / 480 1929
Balance 480 / 480 1929
--- NOTE | 2024-05-31 09:32 | W.IMMPOSTOP ---
Surgical Immed Post Op Note
-
Primary Surgeon: Arturo Tenorio MD
Pre-op Diagnosis: Radiation proctitis/anemia
Post-op Diagnosis: Same
Procedure Performed: Rectal EUA and application of topical Formalin
Anesthesia Type: MAC
Specimen / Cultures: None
Estimated Blood Loss: 5cc
Complications: None
Operative Findings: Mild radiation proctitis
7% topical Formalin in all quadrants for 1 minute each
[2024-05-31] MEDS: NUPERCAINAL 1% OINTMENT 1 APPLIC TOPICAL (10:25)
[2024-05-31] MEDS: FEOSOL 325 MG PO (12:40)
[2024-05-31] MEDS: VITAMIN C 1000 MG PO (12:40)
--- NOTE | 2024-05-31 14:56 | W.PN.CD ---
Today's Communication / Plan
-
Hold apixaban, trend Hgb
Impression / Plan
-
BRBPR with acute blood anemia, severe, requiring pRBC
-Holding apixaban, trend Hgb
-CRS following: she underwent Rectal EUA and application of topical Formalin today to mitigate bleeding
Paroxysmal atrial fibrillation
-Maintaining sinus on amiodarone
-Oral Anticoagulation: Apixaban on hold
-[id number]: score at least 4 (age 75 or more, Vascular disease, female gender)
-The plan was for eventual ablation however she keeps having rectal bleeding
-to get EP input on Watchman
-she is underwent colorectal procedure today (see above), which may help with the bleeding
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
LBBB
CAD, cath 01/2024: 80-90% non-dominant RCA, luminals elsewhere
Physical Exam
Vital Signs/Labs
Vital Signs
Temp Pulse Resp BP Pulse Ox
97.9 F 78 17 142/84 97
05/31/24 14:04 05/31/24 14:04 05/31/24 14:04 05/31/24 14:04 05/31/24 11:30
05/30/24 05/31/24 06/01/24
06:59 06:59 06:59
Actual Weight 62.823 kg 62.851 kg
05/31/24 07:04
05/31/24 07:04
APTT 41.6 Sec (23.4-35.0) H 05/29/24 12:45
Magnesium 1.8 mg/dl (1.6-2.3) 05/30/24 06:29
Physical Exam
Constitutional: No acute distress
EENT: Moist mucous membranes
Cardiovascular: Rhythm & rate is regular, Pedal edema is absent, JVD pressure is normal and Systolic murmur absent
Respiratory: Respiratory effort normal and Lungs clear to auscul.
Neuro/Psych: Alert and Oriented
Data Reviewed
-
Date of Service: May 31, 2024
EKG: Other (Tele: SB 50s)
Labs: Labs Reviewed by me
[2024-05-31] MEDS: ROWASA, CANASA SUPPOSITORY 1000 MG RECTAL (21:15)
[2024-06-01 03:11] VITALS: BP 110/44
[2024-06-01 06:00] VITALS: BMI 25.9
[2024-06-01 07:56] VITALS: BP 129/55
[2024-06-01 08:13] LABS: Hematocrit 26.7 % (37.0-47.0); Hemoglobin 8.7 g/dL (12.0-16.0); Mean Corp Hgb Conc. 32.6 g/dL (33.0-37.0); Mean Corpuscular Hgb 30.6 pg (27.0-31.0); Mean Platelet Volume 10.4 fL (7.4-10.4); Platelet Count 158 10^3/uL (130-400); Red Blood Cell Count 2.84 10^6/uL (4.20-5.40); Red Cell Dist. Width 17.7 % (11.5-14.5); White Blood Cell Count 6.3 10^3/uL (4.8-10.8)
[2024-06-01 08:42] LABS: Blood Urea Nitrogen 23 mg/dl (7-17); Calcium 8.8 mg/dl (8.4-10.2); Carbon Dioxide 26 mmol/L (22-30); Chloride 109 mmol/L (98-107); Estimated Creatinine Clearance 41 ml/min; Glucose 92 mg/dl (70-99); Potassium 4.4 mmol/L (3.5-5.1); Sodium 142 mmol/L (135-145); eGFR > 60.00
[2024-06-01] MEDS: TAPAZOLE 5 MG PO (10:10)
[2024-06-01] MEDS: THERAGRAN 1 TABLET PO (10:10)
[2024-06-01] MEDS: PACERONE 200 MG PO (10:10)
--- NOTE | 2024-06-01 10:27 | CM ---
Patient seen bedside.
Patient denies home care needs.
Sister will transport home once medically stable.
Plan: home no needs.
[2024-06-01 11:39] VITALS: BP 116/46
--- NOTE | 2024-06-01 12:13 | W.PN.CRS1 ---
Today's Communication / Plan
-
continue on a diet
anticoagulation per primary team/outside cutter hand
Assessment/Plan
-
79-year-old female with PMH of A-fib (on Eliquis LD 05/22), valvular disease s/p TAVR, HTN, hypothyroidism, diastolic CHF, rectal cancer s/p ROOSEVELT and LAR with DLI due to tumor bleeding, s/p DLI reversal on 04/15/2024, s/p GI bleed with admission on
05/06, treated nonoperatively and discharged on 05/12, who presents with recurrent hematochezia;
AFVSS
POD#1 Rectal EUA and application of topical Formalin
� Continue on a regular diet
� Anticoagulation per cardiology/primary team
- Okay for discharge from our perspective once anticoagulation is sorted out
� Follow up with Dr. Tenorio in a few weeks. Discussed with patient.
Subjective Data
Subjective Data
Date of Service: June 01, 2024
Patient states she had a mild bit of spotting yesterday afternoon after her surgery. She had 3 or 4 bowel movements this morning with no blood. She has been tolerating a diet. She denies nausea or vomiting.
Objective Data
-
Vital Signs
Temp Pulse Resp BP Pulse Ox
97.7 F 63 18 116/46 99
06/01/24 11:39 06/01/24 11:39 06/01/24 11:39 06/01/24 11:39 06/01/24 11:39
Intake & Output
05/31/24 06/01/24 06/02/24
06:59 06:59 06:59
Intake Total 1929 910 / 910
Output Total 480 / 480
Balance 1929 430 / 430
Intake:
Oral fluids 1680 / 1680 660 / 660
Blood Product Amount Infused ( 250 / 250 250 / 250
mL)
Packed Rbc Leukoreduced Unit 250 / 250
[id number]
Packed Rbc Leukoreduced Unit 250 / 250
[id number]
Output:
Urine, Voided 480 / 480
Other:
Number of approximated MODERATE 3 1
amounts of urine
Lab Results
06/01/24 06:57
06/01/24 06:57
Physical Exam
-
General: No Acute Distress and AOx3
Abdomen: Soft, Non Distended and Non Tender
Skin: Warm and Dry
[2024-06-01] MEDS: FEOSOL 325 MG PO (12:53)
[2024-06-01] MEDS: VITAMIN C 1000 MG PO (12:53)
--- NOTE | 2024-06-01 13:46 | W.PN.HOSP.TC ---
Today's Communication/Plan
-
pending final cardiology plans for CVA risk reduction plan
Assessment / Plan
Assessment / Plan
79yo F with PMHx of hyperthyroidism, Afib, s/p TAVR (bioprosthetic), HFpEF, rectal CA s/p chemotherapy and resection with ileostomy s/p reversal on 04/15/24, recent admission 2/2 postOP possible anastomotic rectal bleeding came with recurrent
rectal bleeding. Had colonoscopy on 05/26/24 with erythrematous mucosa on last admision. Bleeding stops when anticoagulation held. Cardiology involved for alternative CVA risk reduction of A.fib. Had rectal EUA and topical Formalin application by
ColoRectal Sx on 05/31/24
A/P:
#Acute blood loss anemia 2/2 GIB exacerbated by Eliquis
No fevers, no WBC and no signs of perforation - monitor off Abx
Colorectal Sx: s/p treatment
Avoid antiplatelets, NSAIDs and anticoagulation
Serial Hgb and transfuse to keep Hgb >7
# s/p TAVR
#Afib, paroxysmal
cont Amio
cont telemetry
Hold Eliquis while bleeding
Cardiology for further mgmt
#Large L renal cyst 2/2 polycystic kidney disease
#Bilateral renal adenomas
currently asymptomatic
Outpatient Nephrology
#Hyperthyroidism
cont methimazole
Mild hepatic cirrhosis
#Hepatic cyst
outpatient GI
HepC neg
#Bladder wall thickening
most likely 2/2 fluid retention
UA without signs of UTI
restart diuretics, when able
#Chronic HFpEF
Restart lasix when BP allows - use PRN for weight gain - daily weights
#Mild hepatic cirrhosis
GI follow up
Check HepC Ab
#Uterine leyomioma
outpatient MANAGER SUPPLY
#DJD
tylenol
DVT ppx SCDs
DNR/DNI
I have spent at least 56min reviewing chart, test results, communication with cosnultants and direct patient care
Anticipated Discharge: Within 24 hours
Subjective/Interval History
-
Date of Service: June 01, 2024
Objective Data
-
Labs:
Laboratory Results
06/01/24
06:57
WBC 6.3
Hgb 8.7 L
Hct 26.7 L
Plt Count 158
Sodium 142
Potassium 4.4
Chloride 109 H
Carbon Dioxide 26
BUN 23 H
Creatinine 0.9
Glucose 92
Calcium 8.8
Vital Signs:
Vital Signs
Temp Pulse Resp BP Pulse Ox
97.7 F 63 18 116/46 99
06/01/24 11:39 06/01/24 11:39 06/01/24 11:39 06/01/24 11:39 06/01/24 11:39
I&O
05/31/24 06/01/24 06/02/24
06:59 06:59 06:59
Intake Total 1929 910 / 910
Output Total 480 / 480
Balance 1929 430 / 430
Review of Systems
-
History Source: Patient
All other systems: Reviewed and negative
Physical Exam
-
General: No Apparent Distress and Comfortable
HEENT: Hearing Impaired
Respiratory: Clear to Auscultation
Cardiac: Regular Rhythm
GI: Soft, Nontender and Nondistended
Neuro: Awake, Alert, Oriented and AO x 3
Psych: Calm
[2024-06-01] MEDS: IMODIUM 2 MG PO (14:36)
[2024-06-01 15:48] VITALS: BP 111/53
--- NOTE | 2024-06-01 15:59 | W.PN.CD ---
Today's Communication / Plan
-
- Restart Eliquis 2,5 mg BID when acceptable per GI/Surgery
- Plan for AF ablation and watchman a month after Eliquis is tolerated.
Impression / Plan
-
BRBPR with acute blood anemia, severe, requiring pRBC
-Holding apixaban, trend Hgb
-CRS following: she underwent Rectal EUA and application of topical Formalin 05/31 to mitigate bleeding
-Not bleeding anymore.
Stroke prevention
- Needs to modify her anticoagulation plan
- She is almost 81 yrs old and the age of 81 was selected due to higher risk of bleeding in elderly. She is already proving higher risk of bleeding. She is also almost 60 kg.
- I would reduce her Eliquis dose to 2,5 mg BID when acceptable to restart.
- She meets the criteria to need Watchman as she is clearly failing her anticoagulation.
- We will plan to do AF ablation and Watchman together.
Paroxysmal atrial fibrillation
-Maintaining sinus on amiodarone
-Oral Anticoagulation: Apixaban on hold - restart at 2,5 ng BID when acceptable by surgery,
-[id number]: score at least 4 (age 75 or more, Vascular disease, female gender)
-plan to do AF ablation and Watchman together.
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
LBBB
CAD, cath 01/2024: 80-90% non-dominant RCA, luminals elsewhere
Physical Exam
Vital Signs/Labs
Vital Signs
Temp Pulse Resp BP Pulse Ox
97.3 F 59 18 111/53 97
06/01/24 15:48 06/01/24 15:48 06/01/24 15:48 06/01/24 15:48 06/01/24 15:48
05/31/24 06/01/24 06/02/24
06:59 06:59 06:59
Actual Weight 62.851 kg 64.098 kg
06/01/24 06:57
06/01/24 06:57
APTT 41.6 Sec (23.4-35.0) H 05/29/24 12:45
Magnesium 1.8 mg/dl (1.6-2.3) 05/30/24 06:29
Physical Exam
Constitutional: No acute distress and Comfortable
EENT: Anicteric and Moist mucous membranes
Cardiovascular: Rhythm & rate is regular, Pedal edema is absent and JVD pressure is normal
Respiratory: Respiratory effort normal, Lungs clear to auscul. and Crackles Absent
GI: Soft, Non tender and Normal bowel sounds
Neuro/Psych: Alert, Oriented and AO x 3
Data Reviewed
-
Date of Service: June 01, 2024
Medical Decision Making: Reviewed Test Results
EKG: Tracing Personally Visualized and interpreted
Echo: Report Reviewed by me
Labs: Labs Reviewed by me
Old Records: Reviewed
[2024-06-01 19:30] VITALS: BP 118/50
[2024-06-01] MEDS: ELIQUIS 2.5 MG PO (21:14)
[2024-06-01] MEDS: ROWASA, CANASA SUPPOSITORY 1000 MG RECTAL (21:14)
[2024-06-01 23:46] VITALS: BP 117/57
[2024-06-02 03:33] VITALS: BP 124/56
[2024-06-02 06:00] VITALS: BMI 25.9
[2024-06-02] MEDS: THERAGRAN 1 TABLET PO (07:49)
[2024-06-02] MEDS: PACERONE 200 MG PO (07:49)
[2024-06-02] MEDS: ELIQUIS 2.5 MG PO (07:49)
[2024-06-02] MEDS: TAPAZOLE 5 MG PO (07:49)
[2024-06-02 07:50] VITALS: BP 128/53
[2024-06-02 08:31] LABS: Hematocrit 26.8 % (37.0-47.0); Hemoglobin 8.2 g/dL (12.0-16.0)
--- NOTE | 2024-06-02 10:17 | W.PN.CRS1 ---
Today's Communication / Plan
-
Okay for discharge from our perspective
Anticoagulation per cardiology
Assessment/Plan
-
79-year-old female with PMH of A-fib (on Eliquis LD 05/22), valvular disease s/p TAVR, HTN, hypothyroidism, diastolic CHF, rectal cancer s/p ROOSEVELT and LAR with DLI due to tumor bleeding, s/p DLI reversal on 04/15/2024, s/p GI bleed with admission on
05/06, treated nonoperatively and discharged on 05/12, who presents with recurrent hematochezia;
AFVSS
POD# 2 rectal EUA and application of topical Formalin
� Continue on a regular diet
� Anticoagulation per cardiology/primary team
- Okay for discharge from our perspective once anticoagulation is sorted out
� Follow up with Dr. Tenorio in a few weeks. Discussed with patient.
Subjective Data
Subjective Data
Date of Service: June 02, 2024
Patient states she has not had any further bleeding in her bowel movements. She had a few small bowel movements overnight. She has had no rectal pain. She overall feels well and is tolerating a diet.
Objective Data
-
Vital Signs
Temp Pulse Resp BP Pulse Ox
97.7 F 62 18 128/53 96
06/02/24 07:50 06/02/24 07:50 06/02/24 07:50 06/02/24 07:50 06/02/24 07:50
Intake & Output
06/01/24 06/02/24 06/03/24
06:59 06:59 06:59
Intake Total 910 / 910
Output Total 480 / 480
Balance 430 / 430
Intake:
Oral fluids 660 / 660
Blood Product Amount Infused ( 250 / 250
mL)
Packed Rbc Leukoreduced Unit 250 / 250
[id number]
Output:
Urine, Voided 480 / 480
Other:
Number of approximated MODERATE 1 1
amounts of urine
Lab Results
06/02/24 07:13
06/01/24 06:57
Physical Exam
-
General: No Acute Distress and AOx3
Abdomen: Soft, Non Distended and Non Tender
Skin: Warm and Dry
[2024-06-02] MEDS: IMODIUM 2 MG PO (10:25)
--- NOTE | 2024-06-02 10:34 | CM ---
CM reviewed chart, patient seen bedside. Patient reports no needs upon discharge, confirms her sister will provide transportation home. IMM reviewed, signed, placed in chart. CM will continue to follow for all discharge planning needs.
Plan; home no needs.
[2024-06-02 11:44] VITALS: BP 119/51
[2024-06-02] MEDS: FEOSOL 325 MG PO (11:58)
[2024-06-02] MEDS: VITAMIN C 1000 MG PO (11:58)
--- NOTE | 2024-06-02 12:01 | W.PN.HOSP.TC ---
Today's Communication/Plan
-
dc
Assessment / Plan
Assessment / Plan
79yo F with PMHx of hyperthyroidism, Afib, s/p TAVR (bioprosthetic), HFpEF, rectal CA s/p chemotherapy and resection with ileostomy s/p reversal on 04/15/24, recent admission 2/2 postOP possible anastomotic rectal bleeding came with recurrent
rectal bleeding. Had colonoscopy on 05/26/24 with erythematous mucosa on last admission. Bleeding stops when anticoagulation held. Had rectal EUA and topical Formalin application by ColoRectal Sx on 05/31/24, Eliquis was restarted with lower dose of
2.5mg BID as per Cardiology and had no bleeding recurrence since. Will be scheduled by cardiology for ablation and watchman on 07/28/24. Medically stable for d/c as agreed with ColoRectalSx and to cont on anticoagulation. Instructed to monitor for
rectal bleeding at home. Hgb remained stable. Referral to GI provided. Instructed to see ENTOMOLOGY TEACHER. Patient verbalized understanding.
A/P:
#Acute blood loss anemia 2/2 GIB exacerbated by Eliquis
No fevers, no WBC and no signs of perforation - monitor off Abx
Colorectal Sx: s/p treatment
Avoid antiplatelets, NSAIDs and anticoagulation
Serial Hgb and transfuse to keep Hgb >7
# s/p TAVR
#Afib, paroxysmal
cont Amio
cont telemetry
Hold Eliquis while bleeding
Cardiology for further mgmt
#Large L renal cyst 2/2 polycystic kidney disease
#Bilateral renal adenomas
currently asymptomatic
Outpatient Nephrology
#Hyperthyroidism
cont methimazole
Mild hepatic cirrhosis
#Hepatic cyst
outpatient GI
HepC neg
#Chronic HFpEF
Restart lasix when BP allows - use PRN for weight gain - daily weights
#Uterine leyomioma
outpatient ENTOMOLOGY TEACHER
#DJD
tylenol
DVT ppx SCDs
DNR/DNI
I have spent at least 37min reviewing chart, test results, communication with cosnultants and direct patient care
Anticipated Discharge: Today
Subjective/Interval History
-
Date of Service: June 02, 2024
Objective Data
-
Labs:
Laboratory Results
06/02/24
07:13
Hgb 8.2 L
Hct 26.8 L
Vital Signs:
Vital Signs
Temp Pulse Resp BP Pulse Ox
97.7 F 62 18 119/51 98
06/02/24 11:44 06/02/24 11:44 06/02/24 11:44 06/02/24 11:44 06/02/24 11:44
I&O
06/01/24 06/02/24 06/03/24
06:59 06:59 06:59
Intake Total 910 / 910
Output Total 480 / 480
Balance 430 / 430
Review of Systems
-
History Source: Patient
All other systems: Reviewed and negative
Physical Exam
-
General: No Apparent Distress
HEENT: Normocephalic and Hearing Impaired
Respiratory: Clear to Auscultation
Cardiac: Regular Rhythm
GI: Soft and Nondistended
Neuro: Awake, Alert, Oriented and AO x 3
Psych: Calm
--- NOTE | 2024-06-02 12:08 | W.DCSUMMARY ---
Discharge Summary
Discharge Data
Date of Admission: 05/29/24
Date of Discharge: 06/02/24
-
Pending Results: No
Hospital Course
79yo F with PMHx of hyperthyroidism, Afib, s/p TAVR (bioprosthetic), HFpEF, rectal CA s/p chemotherapy and resection with ileostomy s/p reversal on 04/15/24, recent admission 2/2 postOP possible anastomotic rectal bleeding came with recurrent
rectal bleeding. Had colonoscopy on 05/26/24 with erythematous mucosa on last admission. Bleeding stops when anticoagulation held. Had rectal EUA and topical Formalin application by ColoRectal Sx on 05/31/24, Eliquis was restarted with lower dose of
2.5mg BID as per Cardiology and had no bleeding recurrence since. Will be scheduled by cardiology for ablation and watchman on 07/28/24. Medically stable for d/c as agreed with ColoRectalSx and to cont on anticoagulation. Instructed to monitor for
rectal bleeding at home. Hgb remained stable. Referral to GI and nephrology provided. Instructed to see MDS COORDINATOR. Patient verbalized understanding.
I have spent at least 37min reviewing chart, test results, communication with consultants and direct patient care
A/P:
#Acute blood loss anemia 2/2 GIB exacerbated by Eliquis
# s/p TAVR
#Afib, paroxysmal
#Large L renal cyst 2/2 polycystic kidney disease
#Bilateral renal adenomas
#Hyperthyroidism
#Mild hepatic cirrhosis
#Hepatic cyst
#Chronic HFpEF
#Uterine leyomioma
#DJD
Discharge Plan
-
Patient Disposition: Home (Routine Discharge)
Discharge Diagnosis/Procedures: Hematochezia
Diet: Low Cholesterol
Activity: As tolerated
Driving Restrictions: As prior to admission
Activity Restrictions/Additional Instructions:
Schedule follow up with your MDS COORDINATOR for uterine leiomyoma
Referrals:
Yuliya Florez NP [Specified Professional Personl] - 06/15/24 3:20 pm
Jose Alfredo Tenorio MD [Active] - in one to two weeks
Corey Parry DO [Active] - in one to two months
Willie Ryan DO [Family Provider] -
Kami Marie DO [Active] - in four to six weeks (Hepatic cirrhosis on CT)
Prescriptions:
New
Eliquis 2.5 mg Tablet
2.5 mg PO BID Qty: 60 0RF
Continued
cyanocobalamin (vitamin B-12) [Vitamin B-12] 1,000 mcg Tablet
1,000 mcg PO DAILY@1300 Qty: 0
vitamin B complex Tablet
1 tab PO DAILY@1300
biotin 10,000 mcg Capsule
10,000 mcg PO DAILY@1300
methimazole 10 mg Tablet
5 mg PO DAILY
quercetin 500 mg Capsule
500 mg PO DAILY@1300
BoneUp 333 mg-8.3 mcg-116.7 mg Capsule
2 cap PO DAILY
Collagen 1500 Plus C 500 mg-800 mcg- 50 mg Capsule
2 cap PO DAILY@1300
amiodarone 200 mg tablet
200 mg PO DAILY Qty: 0 0RF
acetaminophen 325 mg tablet
650 mg PO Q4HPRN PRN (Reason: mild pain) Qty: 1 0RF
therapeutic multivitamin Tablet
1 tab PO DAILY
potassium chloride 10 mEq Tablet Extended Release
10 meq PO Q48H
BoneUp 333 mg-8.3 mcg-116.7 mg Capsule
1 cap PO HS
loperamide 2 mg Tablet
2 mg PO BIDPRN PRN (Reason: diarrhea)
furosemide [Lasix] 20 mg tablet
20 mg PO DAILYPRN PRN (Reason: Weight gain)
Rx Instructions:
PRN for weight gain more than 3 lb overnight or more than 5 lb in 1 week or LE swelling
simethicone 80 mg tablet,chewable
80 mg PO QIDPRN PRN (Reason: gas)
ferrous sulfate 325 mg (65 mg iron) tablet
325 mg PO DAILY@1300
mesalamine [Canasa] 1,000 mg suppository
1 g FL HS
Discontinued
ascorbic acid (vitamin C) [Vitamin C] 1,000 mg Tablet
1,000 mg PO DAILY@1300
Eliquis 5 mg tablet
5 mg PO BID Qty: 0 0RF
Discharge Orders:
Discharge Patient (As Directed); Ordered 06/02/24
Ordered By: Vic Myers
Discharge Date and Time
Print Language: MACEDONIAN
--- NOTE | 2024-06-03 15:13 | WATCHMAN ---
Watchman
Wathcman Procedure
Referred by:: Espinoza
Date of Referral:: 06/02/24
[id number] Score
Age in Years (65=0, 65-74=1, >/=75=2): > or = 75
Sex (Female=+1): Female
Congestive Heart Failure History (Yes=+1): Yes
Hypertension History (Yes=+1): Yes
Stroke/TIA/Thromboembolism History (Yes=+2): No
Vascular Disease History (Yes=+1): No
Diabetes Mellitus (Yes=+1): No
Score: 5
Anticoagulation Recommendations: Recommend anticoagulation (as validated in nonvalvular fib)
HASBLED Score
Hypertenstion (uncontrolled >160mmHG systolic): No
Renal disease (dialysis, transplant, Cr >2.26mg/dL or >200umol/L): No
Liver disease (cirrhosis or bilirubin >2x normal w/ AST/ALT/AP >3x normal: No
Stroke history: No
Prior major bleeding or predisposition to bleeding: Yes
Labile INR(unsable/high INRs,time in therapeutic range <60%): No
Age >65: Yes
Medication usage predisposing to bleeding(ASA, NSAIDS): No
Alcohol use (>/= 8 drinks/week): No
Score: 2
Risk: Anticoagulation can be considered, however patient does have moderate risk for major bleeding (2/100 patient-years)
Electrocardiogram
Interpretation: abnormal
Heart Rate: 62
Rate: normal
Rhythm: sinus
QRS Pattern: left bundle branch block
Physician Visits
Director Staffing:: Espinoza
Date of Visit:: 06/02/24
Primary Rug Renovator:: Brian
PCP:: Cynthia
Oral Anticoagulation
Post procedure anticoagulation plan:: Eliquis 2.5mg BID
Plan
Plan:: 06/02/2024: Consult received from Dr. Doran. Patient admitted with GI bleed. Was tolerating Eliquis 2.5mg BID but her cancer is in remission and she has gained weight so adjusted to 5mg BID. Was supposed to have ablation but instead plan
will be to decrease Eliquis back to 2.5mg BID and do ablation with Watchman procedure together in July. Patient has a TAVR CT to [place] text sent to Dr. Rizzo to do DEON measurements to assess her anatomy for the watchman device. Provided patient
with brochure and [employer] link to review her options for further discussion with her primary bevel polisher. Allowed for and answered questions.
== END 2024-06-02 15:35 | disposition home or self-care (01) | DRG 394 ==
LOC: 4 WEST ACU 15:09
PROVIDERS: Physician Assistant; ADMITTING PHYSICIAN Family Medicine; ATTENDING PHYSICIAN Internal Medicine; CONSULT PHYSICIAN Internal Medicine; CONSULT PHYSICIAN Surgery; EMERGENCY PHYSICIAN Emergency Medicine; FAMILY PHYSICIAN Family Medicine
PROC: 30233N1 Transfusion of Nonautologous Red Blood Cells into Peripheral Vein, Percutaneous Approach (ICD-10-PCS; 2024-05-30)
PROC: 0DJDXZZ Inspection of Lower Intestinal Tract, External Approach (ICD-10-PCS; 2024-05-31)
DX: K62.7 Radiation proctitis (principal); D62 Acute posthemorrhagic anemia; Q61.3 Polycystic kidney, unspecified; I50.32 Chronic diastolic (congestive) heart failure; D68.32 Hemorrhagic disorder due to extrinsic circulating anticoagulants; Z79.01 Long term (current) use of anticoagulants; K64.4 Residual hemorrhoidal skin tags; I48.0 Paroxysmal atrial fibrillation; E05.90 Thyrotoxicosis, unspecified without thyrotoxic crisis or storm; I11.0 Hypertensive heart disease with heart failure; Z66 Do not resuscitate; K74.60 Unspecified cirrhosis of liver; M19.90 Unspecified osteoarthritis, unspecified site
CPT/HCPCS: 80048; 80053; 83735; 85014; 85018; 85025; 85027; 85730; 86850; 86900; 86901; 86920; 99284; P9016

== ENCOUNTER → 2024-06-10 11:08 | Outpatient (REF) | payer MEDICARE, SELFPAY ==
[2024-06-10 12:19] LABS: Hematocrit 23.5 % (37.0-47.0); Hemoglobin 7.7 g/dL (12.0-16.0); Mean Corp Hgb Conc. 32.8 g/dL (33.0-37.0); Mean Corpuscular Hgb 31.2 pg (27.0-31.0); Mean Corpuscular Volume 95.1 fL (81.0-99.0); Platelet Count 173 10^3/uL (130-400); Red Blood Cell Count 2.47 10^6/uL (4.20-5.40); Red Cell Dist. Width 18.1 % (11.5-14.5); White Blood Cell Count 5.6 10^3/uL (4.8-10.8)
== END ==
LOC: REG 11:08
PROVIDERS: ATTENDING PHYSICIAN Surgery; FAMILY PHYSICIAN Family Medicine; OTHER PHYSICIAN Internal Medicine Hematology & Oncology; REFERRING PHYSICIAN Internal Medicine Cardiovascular Disease
DX: K62.7 Radiation proctitis (principal)
CPT/HCPCS: 36415; 85027

== ENCOUNTER 2024-06-11 02:00 | Day surgery (SDC) | payer MEDICARE, SELFPAY ==
[2024-06-11 14:09] VITALS: BP 122/67
[2024-06-11 14:23] VITALS: BMI 24.3
[2024-06-11 14:25] VITALS: BMI 24.4
[2024-06-11 16:16] LABS: Hematocrit 21.6 % (37.0-47.0); Mean Corp Hgb Conc. 32.4 g/dL (33.0-37.0); Mean Corpuscular Hgb 30.8 pg (27.0-31.0); Mean Corpuscular Volume 95.2 fL (81.0-99.0); Mean Platelet Volume 10.2 fL (7.4-10.4); Platelet Count 144 10^3/uL (130-400); Red Blood Cell Count 2.27 10^6/uL (4.20-5.40); Red Cell Dist. Width 18.5 % (11.5-14.5); White Blood Cell Count 4.8 10^3/uL (4.8-10.8)
== END 2024-06-11 17:20 | disposition home or self-care (01) ==
LOC: SDS 02:00
PROVIDERS: ATTENDING PHYSICIAN Surgery
DX: K62.7 Radiation proctitis (principal); Y84.2 Radiological procedure and radiotherapy as the cause of abnormal reaction of the patient, or of later complication, without mention of misadventure at the time of the procedure; K62.5 Hemorrhage of anus and rectum
CPT/HCPCS: 45334; 85027

== ENCOUNTER → 2024-07-03 11:48 | Outpatient (REF) | payer MEDICARE, SELFPAY | LOC: RAD 11:48 | PROVIDERS: ATTENDING PHYSICIAN Internal Medicine Hematology & Oncology; FAMILY PHYSICIAN Family Medicine; OTHER PHYSICIAN Radiology Radiation Oncology; REFERRING PHYSICIAN Internal Medicine Cardiovascular Disease | DX: C20 Malignant neoplasm of rectum (principal) | CPT/HCPCS: 71260; 74177; Q9967 ==

== ENCOUNTER → 2024-07-10 12:27 | Outpatient (REF) | payer MEDICARE, SELFPAY ==
[2024-07-10 13:10] LABS: % Basophils 1.3 % (0-2); % Immature Granulocytes 0.5 % (0-0.5); % Lymphocytes 9.8 % (20.5-51.1); % Monocytes 8.5 % (1.7-9.3); % Neutrophils 78.9 % (42.2-75.2); Absolute Basophils 0.1 10^3/uL (0-0.2); Absolute Lymphocytes 0.4 10^3/uL (1.2-3.4); Absolute Monocytes 0.3 10^3/uL (0.1-0.6); Hematocrit 22.7 % (37.0-47.0); Hemoglobin 7.1 g/dL (12.0-16.0); Mean Corp Hgb Conc. 31.3 g/dL (33.0-37.0); Mean Corpuscular Hgb 33.2 pg (27.0-31.0); Mean Corpuscular Volume 106.1 fL (81.0-99.0); Mean Platelet Volume 10.3 fL (7.4-10.4); Nucleated Red Blood Cells % 0 %; Platelet Count 167 10^3/uL (130-400); Red Blood Cell Count 2.14 10^6/uL (4.20-5.40); Red Cell Dist. Width 18.6 % (11.5-14.5); White Blood Cell Count 3.9 10^3/uL (4.8-10.8)
[2024-07-10 14:41] LABS: Iron 52 ug/dl (37-170)
[2024-07-10 14:52] LABS: Percent Saturation 17 % (20-50); Total Iron Binding Capacity 303 ug/dl (265-497)
== END ==
LOC: REG 12:27
PROVIDERS: ATTENDING PHYSICIAN Internal Medicine Hematology & Oncology; FAMILY PHYSICIAN Family Medicine; OTHER PHYSICIAN Internal Medicine Cardiovascular Disease; OTHER PHYSICIAN Surgery
DX: C20 Malignant neoplasm of rectum (principal)
CPT/HCPCS: 36415; 82728; 83540; 83550; 85025

== ENCOUNTER → 2024-07-15 14:34 | Outpatient (REF) | payer MEDICARE, SELFPAY ==
[2024-07-15 15:39] LABS: % Basophils 0.8 % (0-2); % Eosinophils 1.3 % (0-6); % Immature Granulocytes 0.3 % (0-0.5); % Lymphocytes 11.1 % (20.5-51.1); % Monocytes 10.8 % (1.7-9.3); % Neutrophils 75.7 % (42.2-75.2); Absolute Eosinophils 0.1 10^3/uL (0-0.7); Absolute Lymphocytes 0.4 10^3/uL (1.2-3.4); Absolute Monocytes 0.4 10^3/uL (0.1-0.6); Absolute Neutrophils 2.9 10^3/uL (1.4-6.5); Hematocrit 25.3 % (37.0-47.0); Hemoglobin 8.4 g/dL (12.0-16.0); Mean Corp Hgb Conc. 33.2 g/dL (33.0-37.0); Mean Corpuscular Hgb 32.3 pg (27.0-31.0); Mean Corpuscular Volume 97.3 fL (81.0-99.0); Mean Platelet Volume 9.6 fL (7.4-10.4); Nucleated Red Blood Cells % 0 %; Platelet Count 163 10^3/uL (130-400); Red Cell Dist. Width 18.9 % (11.5-14.5); White Blood Cell Count 3.8 10^3/uL (4.8-10.8)
== END ==
LOC: REG 14:34
PROVIDERS: ATTENDING PHYSICIAN Internal Medicine Hematology & Oncology; FAMILY PHYSICIAN Family Medicine; OTHER PHYSICIAN Internal Medicine Cardiovascular Disease; OTHER PHYSICIAN Surgery
DX: C20 Malignant neoplasm of rectum (principal)
CPT/HCPCS: 36415; 85025

== ENCOUNTER → 2024-07-21 15:40 | Outpatient (REF) | payer MEDICARE, SELFPAY ==
[2024-07-21 17:16] LABS: % Basophils 0.7 % (0-2); % Eosinophils 1.5 % (0-6); % Immature Granulocytes 0.2 % (0-0.5); % Neutrophils 80.6 % (42.2-75.2); Absolute Eosinophils 0.1 10^3/uL (0-0.7); Absolute Lymphocytes 0.3 10^3/uL (1.2-3.4); Absolute Monocytes 0.4 10^3/uL (0.1-0.6); Absolute Neutrophils 3.3 10^3/uL (1.4-6.5); Hematocrit 24.5 % (37.0-47.0); Mean Corp Hgb Conc. 32.7 g/dL (33.0-37.0); Mean Corpuscular Hgb 32.1 pg (27.0-31.0); Mean Corpuscular Volume 98.4 fL (81.0-99.0); Mean Platelet Volume 10.5 fL (7.4-10.4); Nucleated Red Blood Cells % 0 %; Platelet Count 159 10^3/uL (130-400); Red Blood Cell Count 2.49 10^6/uL (4.20-5.40); Red Cell Dist. Width 16.1 % (11.5-14.5); White Blood Cell Count 4.1 10^3/uL (4.8-10.8)
== END ==
LOC: REG 15:40
PROVIDERS: ATTENDING PHYSICIAN Internal Medicine Hematology & Oncology; FAMILY PHYSICIAN Family Medicine; OTHER PHYSICIAN Internal Medicine Cardiovascular Disease; OTHER PHYSICIAN Surgery; REFERRING PHYSICIAN Surgery
DX: C20 Malignant neoplasm of rectum (principal)
CPT/HCPCS: 36415; 85025

== ENCOUNTER → 2024-07-27 13:38 | Outpatient (REF) | payer MEDICARE, SELFPAY ==
[2024-07-27 13:51] LABS: % Basophils 0.8 % (0-2); % Eosinophils 0.3 % (0-6); % Immature Granulocytes 0.5 % (0-0.5); % Lymphocytes 10.3 % (20.5-51.1); % Monocytes 6.5 % (1.7-9.3); % Neutrophils 81.6 % (42.2-75.2); Absolute Lymphocytes 0.4 10^3/uL (1.2-3.4); Absolute Monocytes 0.3 10^3/uL (0.1-0.6); Absolute Neutrophils 3.3 10^3/uL (1.4-6.5); Hematocrit 18.6 % (37.0-47.0); Mean Corp Hgb Conc. 31.7 g/dL (33.0-37.0); Mean Corpuscular Hgb 32.1 pg (27.0-31.0); Mean Corpuscular Volume 101.1 fL (81.0-99.0); Mean Platelet Volume 9.4 fL (7.4-10.4); Platelet Count 174 10^3/uL (130-400); Red Blood Cell Count 1.84 10^6/uL (4.20-5.40); Red Cell Dist. Width 16.1 % (11.5-14.5)
[2024-07-27 13:54] LABS: Hemoglobin 5.9 g/dL (12.0-16.0)
== END ==
LOC: OIDL 13:38
PROVIDERS: ATTENDING PHYSICIAN Internal Medicine Hematology & Oncology
DX: C20 Malignant neoplasm of rectum (principal)
CPT/HCPCS: 85025

== ENCOUNTER 2024-07-28 09:22 | Outpatient (RCR) | payer MEDICARE, SELFPAY ==
[2024-07-14 13:10] VITALS: BP 94/42
[2024-07-14 13:40] VITALS: BP 94/42
[2024-07-14 13:58] VITALS: BP 97/42
[2024-07-14 15:52] VITALS: BP 124/74
[2024-07-28] VITALS (7 sets, daily range): BP systolic 119–133; BP diastolic 51–63
== END 2024-08-07 23:59 | disposition home or self-care (01) ==
LOC: OID 09:22
PROVIDERS: ATTENDING PHYSICIAN Internal Medicine Hematology & Oncology
DX: C20 Malignant neoplasm of rectum (principal); I48.0 Paroxysmal atrial fibrillation; Z79.01 Long term (current) use of anticoagulants
CPT/HCPCS: 36415; 36430; 86850; 86900; 86901; 86920; P9016

== ENCOUNTER → 2024-08-03 13:28 | Outpatient (REF) | payer MEDICARE, SELFPAY ==
[2024-08-03 13:59] LABS: % Basophils 0.9 % (0-2); % Eosinophils 0.9 % (0-6); % Immature Granulocytes 0.4 % (0-0.5); % Lymphocytes 9.4 % (20.5-51.1); % Monocytes 7.4 % (1.7-9.3); Absolute Lymphocytes 0.4 10^3/uL (1.2-3.4); Absolute Monocytes 0.3 10^3/uL (0.1-0.6); Absolute Neutrophils 3.6 10^3/uL (1.4-6.5); Hematocrit 25.4 % (37.0-47.0); Mean Corp Hgb Conc. 32.3 g/dL (33.0-37.0); Mean Corpuscular Hgb 31.9 pg (27.0-31.0); Mean Corpuscular Volume 98.8 fL (81.0-99.0); Mean Platelet Volume 9.8 fL (7.4-10.4); Platelet Count 160 10^3/uL (130-400); Red Blood Cell Count 2.57 10^6/uL (4.20-5.40); Red Cell Dist. Width 16.1 % (11.5-14.5); White Blood Cell Count 4.5 10^3/uL (4.8-10.8)
[2024-08-03 14:07] LABS: Hemoglobin 8.2 g/dL (12.0-16.0)
== END ==
LOC: OIDL 13:28
PROVIDERS: ATTENDING PHYSICIAN Internal Medicine Hematology & Oncology
DX: C20 Malignant neoplasm of rectum (principal)
CPT/HCPCS: 85025

== ENCOUNTER → 2024-08-10 13:46 | Outpatient (REF) | payer MEDICARE, SELFPAY ==
[2024-08-10 14:01] LABS: % Basophils 0.6 % (0-2); % Eosinophils 1.2 % (0-6); % Immature Granulocytes 0.3 % (0-0.5); % Lymphocytes 11.6 % (20.5-51.1); % Monocytes 9.2 % (1.7-9.3); % Neutrophils 77.1 % (42.2-75.2); Absolute Lymphocytes 0.4 10^3/uL (1.2-3.4); Absolute Monocytes 0.3 10^3/uL (0.1-0.6); Absolute Neutrophils 2.7 10^3/uL (1.4-6.5); Hematocrit 29.9 % (37.0-47.0); Hemoglobin 9.2 g/dL (12.0-16.0); Mean Corp Hgb Conc. 30.8 g/dL (33.0-37.0); Mean Corpuscular Hgb 32.2 pg (27.0-31.0); Mean Corpuscular Volume 104.5 fL (81.0-99.0); Mean Platelet Volume 9.8 fL (7.4-10.4); Platelet Count 138 10^3/uL (130-400); Red Blood Cell Count 2.86 10^6/uL (4.20-5.40); Red Cell Dist. Width 17.6 % (11.5-14.5); White Blood Cell Count 3.5 10^3/uL (4.8-10.8)
== END ==
LOC: OIDL 13:46
PROVIDERS: ATTENDING PHYSICIAN Internal Medicine Hematology & Oncology
DX: C20 Malignant neoplasm of rectum (principal)
CPT/HCPCS: 85025

== ENCOUNTER 2024-08-17 14:50 | Outpatient (RCR) | payer MEDICARE, SELFPAY ==
[2024-08-17 14:53] LABS: % Basophils 0.9 % (0-2); % Eosinophils 1.2 % (0-6); % Immature Granulocytes 0.3 % (0-0.5); % Lymphocytes 9.8 % (20.5-51.1); % Monocytes 7.2 % (1.7-9.3); % Neutrophils 80.6 % (42.2-75.2); Absolute Lymphocytes 0.3 10^3/uL (1.2-3.4); Absolute Monocytes 0.3 10^3/uL (0.1-0.6); Absolute Neutrophils 2.8 10^3/uL (1.4-6.5); Hematocrit 26.1 % (37.0-47.0); Hemoglobin 8.1 g/dL (12.0-16.0); Mean Corpuscular Hgb 32.7 pg (27.0-31.0); Mean Corpuscular Volume 105.2 fL (81.0-99.0); Mean Platelet Volume 10.4 fL (7.4-10.4); Platelet Count 115 10^3/uL (130-400); Red Blood Cell Count 2.48 10^6/uL (4.20-5.40); Red Cell Dist. Width 17.9 % (11.5-14.5); White Blood Cell Count 3.5 10^3/uL (4.8-10.8)
[2024-08-24 14:03] LABS: % Basophils 0.8 % (0-2); % Eosinophils 0.8 % (0-6); % Immature Granulocytes 0.3 % (0-0.5); % Lymphocytes 8.3 % (20.5-51.1); % Monocytes 4.5 % (1.7-9.3); % Neutrophils 85.3 % (42.2-75.2); Absolute Lymphocytes 0.3 10^3/uL (1.2-3.4); Absolute Monocytes 0.2 10^3/uL (0.1-0.6); Absolute Neutrophils 3.4 10^3/uL (1.4-6.5); Hematocrit 27.4 % (37.0-47.0); Hemoglobin 8.9 g/dL (12.0-16.0); Mean Corp Hgb Conc. 32.5 g/dL (33.0-37.0); Mean Corpuscular Volume 104.6 fL (81.0-99.0); Mean Platelet Volume 9.7 fL (7.4-10.4); Platelet Count 146 10^3/uL (130-400); Red Blood Cell Count 2.62 10^6/uL (4.20-5.40); Red Cell Dist. Width 17.8 % (11.5-14.5)
== END 2024-09-04 23:59 | disposition home or self-care (01) ==
LOC: OID 14:50
PROVIDERS: ATTENDING PHYSICIAN Internal Medicine Hematology & Oncology
DX: C20 Malignant neoplasm of rectum (principal); I48.0 Paroxysmal atrial fibrillation; Z79.01 Long term (current) use of anticoagulants
CPT/HCPCS: 85025; 86850; 86900; 86901

== ENCOUNTER → 2024-08-31 16:23 | Outpatient (REF) | payer MEDICARE, SELFPAY ==
[2024-08-31 17:46] LABS: % Basophils 0.8 % (0-2); % Eosinophils 0.8 % (0-6); % Immature Granulocytes 0.6 % (0-0.5); % Lymphocytes 9.4 % (20.5-51.1); % Monocytes 6.4 % (1.7-9.3); Absolute Lymphocytes 0.5 10^3/uL (1.2-3.4); Absolute Monocytes 0.3 10^3/uL (0.1-0.6); Hemoglobin 8.8 g/dL (12.0-16.0); Mean Corp Hgb Conc. 32.6 g/dL (33.0-37.0); Mean Corpuscular Hgb 33.5 pg (27.0-31.0); Mean Corpuscular Volume 102.7 fL (81.0-99.0); Mean Platelet Volume 10.5 fL (7.4-10.4); Nucleated Red Blood Cells % 0 %; Platelet Count 149 10^3/uL (130-400); Red Blood Cell Count 2.63 10^6/uL (4.20-5.40); Red Cell Dist. Width 17.7 % (11.5-14.5); White Blood Cell Count 4.9 10^3/uL (4.8-10.8)
== END ==
LOC: REG 16:23
PROVIDERS: ATTENDING PHYSICIAN Internal Medicine Hematology & Oncology; FAMILY PHYSICIAN Family Medicine; OTHER PHYSICIAN Internal Medicine Cardiovascular Disease; REFERRING PHYSICIAN Surgery
DX: C20 Malignant neoplasm of rectum (principal)
CPT/HCPCS: 36415; 85025; 86850; 86900; 86901

== ENCOUNTER → 2024-09-07 15:10 | Outpatient (REF) | payer MEDICARE, SELFPAY ==
[2024-09-07 16:10] LABS: % Basophils 0.8 % (0-2); % Eosinophils 1.6 % (0-6); % Immature Granulocytes 0.3 % (0-0.5); % Lymphocytes 10.4 % (20.5-51.1); % Neutrophils 78.9 % (42.2-75.2); Absolute Eosinophils 0.1 10^3/uL (0-0.7); Absolute Lymphocytes 0.4 10^3/uL (1.2-3.4); Absolute Monocytes 0.3 10^3/uL (0.1-0.6); Absolute Neutrophils 3.1 10^3/uL (1.4-6.5); Hematocrit 27.4 % (37.0-47.0); Hemoglobin 8.7 g/dL (12.0-16.0); Mean Corp Hgb Conc. 31.8 g/dL (33.0-37.0); Mean Corpuscular Hgb 33.3 pg (27.0-31.0); Mean Platelet Volume 10.4 fL (7.4-10.4); Nucleated Red Blood Cells % 0 %; Platelet Count 130 10^3/uL (130-400); Red Blood Cell Count 2.61 10^6/uL (4.20-5.40); Red Cell Dist. Width 17.5 % (11.5-14.5); White Blood Cell Count 3.9 10^3/uL (4.8-10.8)
== END ==
LOC: REG 15:10
PROVIDERS: ATTENDING PHYSICIAN Internal Medicine Hematology & Oncology; FAMILY PHYSICIAN Family Medicine; OTHER PHYSICIAN Internal Medicine Cardiovascular Disease; REFERRING PHYSICIAN Surgery
DX: C20 Malignant neoplasm of rectum (principal)
CPT/HCPCS: 36415; 85025; 86850; 86900; 86901

== ENCOUNTER 2024-09-15 08:06 | Inpatient (IN) | payer MEDICARE, SELFPAY ==
[2024-09-09 13:19] VITALS: BMI 25.2
[2024-09-09 14:13] LABS: % Basophils 0.8 % (0-2); % Eosinophils 1.5 % (0-6); % Immature Granulocytes 0.5 % (0-0.5); % Lymphocytes 7.9 % (20.5-51.1); % Monocytes 5.1 % (1.7-9.3); % Neutrophils 84.2 % (42.2-75.2); Absolute Eosinophils 0.1 10^3/uL (0-0.7); Absolute Lymphocytes 0.3 10^3/uL (1.2-3.4); Absolute Monocytes 0.2 10^3/uL (0.1-0.6); Absolute Neutrophils 3.3 10^3/uL (1.4-6.5); Hematocrit 25.8 % (37.0-47.0); Hemoglobin 8.5 g/dL (12.0-16.0); Mean Corp Hgb Conc. 32.9 g/dL (33.0-37.0); Mean Corpuscular Hgb 33.6 pg (27.0-31.0); Mean Platelet Volume 10.2 fL (7.4-10.4); Nucleated Red Blood Cells % 0 %; Platelet Count 132 10^3/uL (130-400); Red Blood Cell Count 2.53 10^6/uL (4.20-5.40); Red Cell Dist. Width 17.2 % (11.5-14.5); White Blood Cell Count 3.9 10^3/uL (4.8-10.8)
[2024-09-09 14:25] LABS: INR 1.25; PT 16.2 Sec (11.4-14.6)
[2024-09-09 14:26] LABS: ALT (SGPT) 28 U/L (0-35); AST (SGOT) 36 U/L (14-36); Albumin 4.1 g/dl (3.5-5.0); Alkaline Phosphatase 99 U/L (38-126); Blood Urea Nitrogen 25 mg/dl (7-17); Calcium 9.6 mg/dl (8.4-10.2); Carbon Dioxide 26 mmol/L (22-30); Chloride 103 mmol/L (98-107); Estimated Creatinine Clearance 35 ml/min; Glucose 86 mg/dl (70-99); Potassium 4.8 mmol/L (3.5-5.1); Sodium 136 mmol/L (135-145); Total Bilirubin 0.8 mg/dl (0.2-1.3); eGFR 51.43
[2024-09-15] VITALS (24 sets, daily range): BP systolic 97–163; BP diastolic 51–69; BMI 25.2
[2024-09-15 11:54] LABS: ACT-LR - POC 390 Seconds (116-155)
[2024-09-15 12:16] LABS: ACT-LR - POC 343 Seconds (116-155)
--- NOTE | 2024-09-15 13:33 | ITS.CL.PN ---
Postmaster Relief - Procedure Note
Procedure
Procedure Note:
WATCHMAN LEFT ATRIAL APPENDAGE OCCLUSION REPORT
Date of Procedure: 09/15/2024
Referring: Dr. Joao Torres MD
Indication: atrial fibrillation with high bleeding risk and high stroke risk
Operators: Elia Montana MD, PhD (interventional cardiology); Dr. Roe Doran MD (electrophysiology); Dr. Joao Torres MD (cardiac imaging)
Anesthesia: general anesthesia provided by the anesthesia staff
PROCEDURE: left atrial appendage occlusion with a 31 mm Watchman FLX
HEMODYNAMIC DATA
LA 13 mmHg
PROCEDURE NARRATIVE:
The patient was intubated and sedated by anesthesiology and then prepped and draped in standard sterile fashion. Pulmonary vein isolation was then performed by Dr. Roe Doran (please see separate procedure note for details). At the conclusion of
the ablation procedure, the ablation catheter was exchanged for a Watchman double curved sheath. A TRACI probe was placed by cardiology and imaging performed demonstrating no left atrial appendage thrombus and no pericardial effusion. ACT was checked
and was >300. Left atrial pressure was measured at 13 mmHg.
A 5F pigtail catheter was advanced through the sheath and placed in the left atrial appendage, and an appendage gram was performed demonstrating anatomy suitable for a 31 mm Watchman FLX device. The device was prepped on the back table, the pigtail
catheter removed, and the device delivered via the sheath to the left atrial appendage. The device was deployed slowly under continuous fluoroscopic and TRACI visualization. Initial deployment demonstrate a large mitral shoulder, so the device was
recaptured and redeployed with deeper positioning. After deployment, TRACI imaging was performed to assess PASS criteria. The device demonstrated excellent positioning, anchor stability on tug test, appropriate sizing with 12-28% compression, and
appropriate seal with no leak at 0, 45, 90, or 135 degrees. Given PASS criteria were met, the device was then released.
The delivery system retracted back into the sheath and removed from the body. The sheath was retracted into the right atrium with TRACI demonstrating no significant R-L shunt or pericardial effusion. The ICE catheter was removed from the body. The
sheaths were removed and the venotomy closed with [id number] knot. Protamine 40 mg was given. The patient was extubated and tolerated the procedure well.
RADIATION: dose 62 mGy; DAP 8.7 Gy*cm2; fluoroscopy time 10.2 min
CONCLUSIONS: successful deployment of a 31 mm Watchman FLX device under fluoroscopic and TRACI guidance
RECOMMENDATIONS:
1. anticoagulation with Eliquis 2.5 mg BID for 3 months
2. repeat TRACI in 3 months
Copy to: Dr. Joao Torres MD (zipper machine operator); Dr. Willie Ryan DO (PCP)
Signed: Elia Montana MD, PhD
--- NOTE | 2024-09-15 13:36 | ITS.CL.ABL ---
[employer]per - Ablation
Ablation
Procedure Report:
AFIB ablation / Watchman implant:
Ms. Drummond is a very pleasant 79 yr old woman, a patient of Dr. Torres, with symptomatic persistent AF, with CHADSVascc score of 5 on Eliquis with h/o recurrent GI bleed is recommended a placement of Watchman with atrial fibrillation ablation.
Date of the Procedure:
09/15/2024
Indications:
Persistent atrial fibrillation, recurrent bleeding with high CHADSVasc score
Pre-Operative Diagnosis:
Persistent atrial fibrillation, recurrent bleeding with high CHADSVasc score
Post-Operative Diagnosis:
Persistent atrial fibrillation, recurrent bleeding with high CHADSVasc score
Procedure Performed:
Atrial fibrillation ablation with Pulsed-Field approach for pulmonary vein isolation
Posterior wall isolation
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
Performing Physician:
Ablation and TSSP: Roe Doran MD
Implant: Elia Montana MD PHD
TRACI: Joao Torres M.D.
Assistants:
EP staff
Anesthesia:
See anesthesia records
Detailed Description of the Procedure:
Written informed consent was obtained from the patient after a full explanation of the risks and benefits of the procedure including the risks of sedation and anesthesia.
The patient was brought to the electrophysiology laboratory in stable condition in fasting state. Continuous electrocardiographic and hemodynamic monitoring was initiated.
The initial rhythm was sinus bradycardia with intermittent junctional escape.
The procedure site was meticulously prepared with surgical scrub and allowed to dry with no pooling. Sterile draping was applied to cover the procedure site. The image intensifier was draped with sterile bag and positioned over the patient. After
infusion of local anesthetic, vascular access was obtained under ultrasound guidance and sheaths were placed over guide wire as detailed below.
Sheath and Catheter Placement:
The following catheters / sheaths were placed
Sheaths:
��������� 17Fr steerable sheath (Faradrive�, [employer]) in right femoral that later swapped to Watchman delivery sheath
��������� 9Fr in right femoral vein
Catheters:
��������� MARK ANTHONY HD Grid mapping catheter � at locations of RA, LA
��������� Farawave� PFA catheter
��������� ICE catheter �Reilly ViewFlex - at locations of RA, SVC, and RV.
��������� Watchman catheter
��������� Bard Decapolar catheter.
Heparin bolus given and drip started.
Intracardiac ECHO:
An 8-Kazakh AcuNav intracardiac ECHO (ICE) probe was advanced through the 9-Kazakh sheath in the right femoral vein into the right atrium under fluoroscopic and ICE ultrasound image guidance and a baseline ECHO study was performed. The left atrial
size was normal. There was moderate tricuspid regurgitation.
The Evolute Medtronic aortic valve prosthesis was imaged showing mild to moderate para valvular aortic leak with dense calcification around the valve. There was normal left ventricular systolic functions. There is no pericardial effusion. All the
four veins were identified and has flow identified. There was sluggish flow noted in the DEON. There was no DEON clot noted.
During the procedure, ICE was used for monitoring of complications, guidance of trans-septal puncture, monitor the catheter position and tracking ablation lesions. No change in the pericardial space noted throughout the procedure.
Trans-septal Puncture:
Heparin was initiated and infused to maintain appropriate ACT. A pigtail guidewire was advanced through the 8-Kazakh sheath in the right femoral vein into the superior vena cava under fluoroscopic and ICE guidance. The 9-Kazakh sheath was exchanged
for a Faradrive sheath which was advanced into the superior vena cava. A trans-septal RF pigtail via Faradrive connect system was utilized to perform the trans-septal puncture. The apparatus was withdrawn until it was in contact with the fossa
ovalis. The position was adjusted based on fluoroscopy and ultrasound images from ICE. Under fluoroscopic, hemodynamic and ICE ultrasound guidance, left atrium was cannulated by applying RF energy. Once atrial septum was cannulated, the pigtail wire
was advanced through the needle into the left atrium. The guide wire was advanced into the left superior pulmonary vein. Both the sheath and the dilator was advanced into the left atrium. The dilator with the needle was withdrawn. Blood was
aspirated from the Faradrive sheath and arterial blood confirmed. The sheath was flushed. Saline injection noted into the left atrium on ICE. The mapping catheter was advanced in the sheath into the left pulmonary vein. Left atrial pressure was
measured.
3D Electroanatomic Mapping:
Using the HD Grid catheter advanced through sheath into the left atrium, an electroanatomic map (EAM) of the left atrium was created using yoonew mapping system. The map was used for localization of catheter position and tacking of ablation
lesions.
The EAM of the left atrium showed 4 pulmonary veins with all 4 veins electrically connected to the body the LA. It showed scattered extensive scar on the posterior and anterior wall of the LA. The LA was mildly dilated in size.
Following the EAM, preparation were made for ablation.
Ablation:
Ablation # 1: Pulmonary vein Isolation:
Glycopyrrolate 0.2 mg was given prior to the placement of ablation. Using NXTM pulsed wave ablation system, pulmonary vein isolation was achieved. First the ablation catheter was placed in the LSPV and ostial ablation lesions were performed in a
counter clock sinclair approach all around the PV ostium circumferentially. Then the catheter was placed on the antral location and multiple ablation lesions were placed circumferentially on the antrum of the vein.
In the similar fashion, the LIPV were isolated.
Then the catheter was moved to right sided veins. The ostial and antral ablations were placed as noted above.
Ablation #2: Posterior wall isolation:
Using the pulsed field ablation catheter, the catheter was placed between left superior pulmonary vein and right severe pulmonary vein with series of overlapping ablation lesions placed.
Using the pulsed field ablation catheter, the catheter was placed on the posterior wall and moved around the posterior wall to have adequate contact and ablations were placed isolating the posterior wall.
EPS and Confirmation of the PVI and bidirectional block:
Following achievement of entrance block at the pulmonary veins, pacing from the HD catheter in each of the four veins at 10 milliamps for 2 milliseconds showed entrance and exit block. All PVI were rechecked at the end of the case and remained
isolated. Entrance and exit block were demonstrated in all veins.
Post ablation Electroanatomic mapping:
Once ablation was completed, the EAM of the LA was done again in sinus rhythm with excellent demarcation of LA myocardium and isolated antral tissue. There was no significant scarring noted in the LA.
The DEON had healthy signals and was not isolated.
Watchman implantation:
Using the trans-septal RF pigtail, the Faradrive sheath was swapped with Watchman delivery sheath over the RF pigtail. A curved pig tail was advanced over the guide wire into the left atrium and the wire was removed.
Left atrial appendage atriography:
The pigtail was advanced into the DEON and was confirmed on fluoroscopy and TRACI. The contrast was injected and the DEON shape was recorded in MOYER /Caudal view (21/30 degrees). The size of the DEON was again checked and confirmed reviewing the TRACI and
the fluoroscopy along with previously obtained CT scan images.
Watchman Deployment:
The Watchman delivery sheath was advanced into the DEON over the pigtail till the right marker was at the location of the orifice line marked on the screen. The pigtail was removed and the Watchman delivery system was advanced through the sheath into
the DEON till it was aligned with the outer sheath marker inside the DEON. The watchman sheath was clicked with the outer sheath. Once acceptable location achieved, the outer sheath was pulled back keeping the device steady at the DEON location till a
ball of the device was formed under fluoroscopic guidance. The whole system was advanced further into the DEON till adequate depth is achieved into the DEON. The DEON occluder was deployed and expanded adequately anchoring to the DEON. The device was
kept anchored with stable pressure to that location for 10 seconds.
The Watchman was noted to have shoulder out and was not completely inside the appendage and decision was made to recapture and implant deeper inside the DEON. The watchman was successfully recaptured and was adjusted to get a deeper location and
deployed as noted above. The new location has much better appearance and the device had minimal shoulder present now after the tug test.
The TRACI image confirmed adequate expansion. The tug test was done that showed the device is anchored well and is not able to come out. The compression was 28%, 12% and 26% on the three sides. There was no significant leak noted on the Doppler via
TRACI. A contrast was injected showing adequate location of the device at the mouth of the DEON and no leak demonstrated.�
The device was deployed by unscrewing the Watchman device and releasing from the connecting wire. The wire was pulled back into the sheath and the sheath was pulled out of the LA.
Implanted device:
WATCHMAN FLX Pro � 31mm
Procedure End
TRACI study was done again that showed no epicardial accumulation that was unchanged from earlier. A repeated images showed no change in the pericardial space. No complications noted.
Following the completion of the deployment, catheters were removed. Protamine 40 mg was given at the end of the procedure and ACT was checked repeatedly. The sheath was removed and hemostasis achieved with Figure of 8 and manual compression after
acceptable ACT is achieved.
Left atrial Pressure:
Mean LA pressure was 13mmHg
Estimated Blood loss:
<10 cc
Specimens Removed:
None.
Implants / Devices:
None
Urine output:
None
Packs / Drains/ Tubes:
None
Instrument / Sponge Count Correct:
Yes
Complications of the Procedure:
None
Condition of Patient at Time of Transfer:
Hemodynamically stable with no neurological or vascular compromise.
Summary:
Successful atrial fibrillation ablation with Pulsed Field approach for pulmonary vein isolation and posterior wall isolation.
Successful implantation of the left atrial occlusion device (WATCHMAN FLX Pro� 31mm)
Post procedure Plan for anticoagulation:
Continue Eliquis for 3 months.
Based on 3 months TRACI, will plan to switch Eliquis to ASA 81 mg indefinitely.
Figures from the Procedure:
Figure 1: The electroanatomic mapping (EAM) of the left atrium with bipolar voltage (purple indicates normal electrical activity with rodriguez as no myocardial muscle electric activity indicating a line of block or scar.
[2024-09-15 14:43] LABS: ACT-LR - POC > 397 Seconds (116-155)
--- NOTE | 2024-09-15 16:41 | CM ---
spoke to pt in room, she is prev indep, lives in an apt with no steps toenter. she denies any dc planning needs or dme's. plan is for dc to home when medically stable.
[2024-09-15] MEDS: ELIQUIS 2.5 MG PO (20:12)
[2024-09-15] MEDS: ANESTHETIC LOZENGE 1 LOZENGE PO (20:18)
[2024-09-15] MEDS: ROWASA, CANASA SUPPOSITORY 1000 MG RECTAL (22:35)
--- NOTE | 2024-09-16 03:23 | PTCARENOTE ---
Rec'd pt at change of shift. Pt AAO*3, VSS, and SR on TELE monitor with 2L of oxygen via nasal canula applied. R femoral site with dressing CDI, pt agreed to limb restrictions. Pt denies any pain or discomfort. Pt updated on plan of care and
resting with call desai in reach. Plan of care ongoing. See MAR and flowchart for full pt care and assessment.
[2024-09-16 04:30] VITALS: BP 122/55
[2024-09-16 04:42] VITALS: BMI 25.4
[2024-09-16 05:11] LABS: Hemoglobin 8.1 g/dL (12.0-16.0); Mean Corp Hgb Conc. 33.8 g/dL (33.0-37.0); Mean Corpuscular Hgb 34.5 pg (27.0-31.0); Mean Corpuscular Volume 102.1 fL (81.0-99.0); Mean Platelet Volume 10.1 fL (7.4-10.4); Platelet Count 149 10^3/uL (130-400); Red Blood Cell Count 2.35 10^6/uL (4.20-5.40); Red Cell Dist. Width 17.8 % (11.5-14.5); White Blood Cell Count 6.3 10^3/uL (4.8-10.8)
[2024-09-16 05:34] LABS: Blood Urea Nitrogen 27 mg/dl (7-17); Calcium 8.9 mg/dl (8.4-10.2); Carbon Dioxide 23 mmol/L (22-30); Chloride 105 mmol/L (98-107); Estimated Creatinine Clearance 35 ml/min; Glucose 110 mg/dl (70-99); Magnesium 2.4 mg/dl (1.6-2.3); Potassium 4.7 mmol/L (3.5-5.1); Sodium 136 mmol/L (135-145); eGFR 51.43
[2024-09-16 06:51] VITALS: BP 105/51
--- NOTE | 2024-09-16 07:52 | W.PN.CD ---
Today's Communication / Plan
-
- Discharge home
Impression / Plan
-
PCP: Willie Ryan DO
CDY: Kenneth Torres MD
79 y/o,
Atrial fibrillation ablation with Pulsed-Field approach for pulmonary vein isolation
Posterior wall isolation
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
Doing well post op
Plan for 3 months of Eliquis and Amiodarone
Stop Amiodarone in 2-3 months
TRACI in 3 months.
If no leak on Watchman, can switch Eliquis to ASA.
Endocrine follow up for hyperthyroid management
Physical Exam
Vital Signs/Labs
Vital Signs
Temp Pulse Resp BP Pulse Ox
98.1 F 58 16 122/55 99
09/16/24 06:52 09/16/24 06:52 09/16/24 06:52 09/16/24 04:30 09/16/24 06:52
09/15/24 09/16/24 09/17/24
06:59 06:59 06:59
Actual Weight 65 kg
09/16/24 04:36
09/16/24 04:36
PT 16.2 Sec (11.4-14.6) H 09/09/24 13:36
INR 1.25 09/09/24 13:36
Magnesium 2.4 mg/dl (1.6-2.3) H 09/16/24 04:36
Physical Exam
Constitutional: No acute distress and Comfortable
EENT: Anicteric and Moist mucous membranes
Cardiovascular: Rhythm & rate is regular, Pedal edema is absent and JVD pressure is normal
Respiratory: Respiratory effort normal, Lungs clear to auscul., Wheeze Absent and Crackles Absent
GI: Soft, Distention absent, Non tender and Normal bowel sounds
Neuro/Psych: Alert, Oriented and AO x 3
Other: Cath Site
Data Reviewed
-
Date of Service: September 16, 2024
Medical Decision Making: Reviewed Test Results and Test Interpretation
EKG: Tracing Personally Visualized and interpreted
Echo: Report Reviewed by me
Labs: Labs Reviewed by me
Old Records: Reviewed
--- NOTE | 2024-09-16 08:30 | W.DS.TRANS ---
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
-
Discharge Instructions:
Sleep Apnea Risk Intermediate
Discharge Diagnosis/Procedures AFib, s/p ablation and Watchman device implant
Diet Low Cholesterol
Driving Restrictions No driving for 24 hours
Others Tests Follow up TRACI is scheduled at [facility] on 12/29/[address] Torres. You will
receive a call the night prior with arrival
time.
Instructions:
Stand-Alone Forms: DC Instructions- Cath/EP Lab
Changes to Home Medications: No
Discharge Medications:
DC Medications w/original date entered in [facility]
cyanocobalamin (vitamin B-12) 1,000 mcg tablet (Vitamin B-12) 1,000 mcg PO DAILY@1300 Supplement ##0 09/25/23
vitamin B complex 1 tab PO DAILY@1300 Supplement 09/25/23
biotin 10,000 mcg capsule 10,000 mcg PO DAILY@1300 Supplement 02/04/24
calcium 333 mg-D3 8.3 mcg-magnesium ox 116.7 bq-P-K-minerals capsule (BoneUp) 2 cap PO DAILY Supplement 02/04/24
methimazole 10 mg tablet 5 mg PO DAILY Thyroid 02/04/24
quercetin 500 mg capsule 500 mg PO DAILY Supplement 02/04/24
collagen,hydrolysate 500 mg-biotin 800 mcg-ascorbic acid 50 mg capsule (Collagen 1500 Plus C) 2 cap PO DAILY@1300 Supplement 04/10/24
amiodarone 200 mg tablet 200 mg PO DAILY Arrhythmia #0 tabs 04/26/24
calcium 333 mg-D3 8.3 mcg-magnesium ox 116.7 zx-V-F-minerals capsule (BoneUp) 1 cap PO HS Supplement 05/06/24
potassium chloride 10 mEq tablet,extended release 10 meq PO PRN PRN ELECTROLYTE REPLETION W/TAKING LASIX; 05/06/24
therapeutic multivitamin 1 tab PO DAILY Supplement 05/06/24
furosemide 20 mg tablet (Lasix) 20 mg PO DAILYPRN PRN Weight gain 05/22/24
mesalamine 1,000 mg rectal suppository (Canasa) 1 g NH HS 05/29/24
apixaban 2.5 mg tablet (Eliquis) 2.5 mg PO BID #60 tabs 06/02/24
Home Medication Changes
Pending Results: No
[2024-09-16] MEDS: ELIQUIS 2.5 MG PO (09:13)
[2024-09-16] MEDS: TAPAZOLE 5 MG PO (09:13)
[2024-09-16] MEDS: PACERONE 200 MG PO (09:13)
[2024-09-16 10:19] VITALS: BP 105/50
--- NOTE | 2024-09-16 11:36 | PTCARENOTE ---
Pt seen by . Pt up independently, c/o mild throat discomfort. Telemetry and IV device removed. Discharge instructions reviewed with pt regarding activity and driving guidelines, wound care, medications and their possible side effects (no
new meds), reporting cares and concerns and follow up appt's. Excellent understanding verbalized. pt escorted out via wheelchair and discharged to home.
== END 2024-09-16 11:30 | disposition home or self-care (01) | DRG 317 ==
LOC: IVU 08:06
PROVIDERS: Nurse Practitioner Adult Health; Urology; ADMITTING PHYSICIAN Internal Medicine Cardiovascular Disease; FAMILY PHYSICIAN Family Medicine; OTHER PHYSICIAN Internal Medicine Cardiovascular Disease
PROC: 4A0234Z Measurement of Cardiac Electrical Activity, Percutaneous Approach (ICD-10-PCS; 2024-09-15)
PROC: 4A023FZ Measurement of Cardiac Rhythm, Percutaneous Approach (ICD-10-PCS; 2024-09-15)
PROC: B24BZZ4 Ultrasonography of Heart with Aorta, Transesophageal (ICD-10-PCS; 2024-09-15)
PROC: 02583ZF Destruction of Conduction Mechanism using Irreversible Electroporation, Percutaneous Approach (ICD-10-PCS; 2024-09-15)
PROC: 02K83ZZ Map Conduction Mechanism, Percutaneous Approach (ICD-10-PCS; 2024-09-15)
PROC: 02L73DK Occlusion of Left Atrial Appendage with Intraluminal Device, Percutaneous Approach (ICD-10-PCS; 2024-09-15)
DX: I48.19 Other persistent atrial fibrillation (principal); Z00.6 Encounter for examination for normal comparison and control in clinical research program; I44.7 Left bundle-branch block, unspecified; K74.60 Unspecified cirrhosis of liver; I71.40 Abdominal aortic aneurysm, without rupture, unspecified; L93.0 Discoid lupus erythematosus; N18.31 Chronic kidney disease, stage 3a; D63.1 Anemia in chronic kidney disease; E05.90 Thyrotoxicosis, unspecified without thyrotoxic crisis or storm; R00.1 Bradycardia, unspecified; I12.9 Hypertensive chronic kidney disease with stage 1 through stage 4 chronic kidney disease, or unspecified chronic kidney disease; Z79.01 Long term (current) use of anticoagulants; Z79.899 Other long term (current) drug therapy; Z85.048 Personal history of other malignant neoplasm of rectum, rectosigmoid junction, and anus; Z87.19 Personal history of other diseases of the digestive system; Z87.891 Personal history of nicotine dependence; Z92.21 Personal history of antineoplastic chemotherapy; Z92.3 Personal history of irradiation; Z95.3 Presence of xenogenic heart valve
CPT/HCPCS: 33340; 36415; 80048; 80053; 83735; 85025; 85027; 85347; 85610; 86850; 86900; 86901; 93005; 93355; 93656; 93657; C1732; C1733; C1759; C1766; C1892; C1894

== ENCOUNTER → 2024-10-02 14:42 | Outpatient (REF) | payer MEDICARE, SELFPAY ==
[2024-10-02 15:24] LABS: % Basophils 0.8 % (0-2); % Eosinophils 0.6 % (0-6); % Immature Granulocytes 0.6 % (0-0.5); % Lymphocytes 8.8 % (20.5-51.1); % Monocytes 6.5 % (1.7-9.3); % Neutrophils 82.7 % (42.2-75.2); Absolute Lymphocytes 0.3 10^3/uL (1.2-3.4); Absolute Monocytes 0.2 10^3/uL (0.1-0.6); Absolute Neutrophils 2.9 10^3/uL (1.4-6.5); Hematocrit 26.6 % (37.0-47.0); Hemoglobin 8.7 g/dL (12.0-16.0); Mean Corp Hgb Conc. 32.7 g/dL (33.0-37.0); Mean Corpuscular Hgb 33.9 pg (27.0-31.0); Mean Corpuscular Volume 103.5 fL (81.0-99.0); Mean Platelet Volume 9.7 fL (7.4-10.4); Nucleated Red Blood Cells % 0 %; Platelet Count 152 10^3/uL (130-400); Red Blood Cell Count 2.57 10^6/uL (4.20-5.40); Red Cell Dist. Width 16.9 % (11.5-14.5); White Blood Cell Count 3.5 10^3/uL (4.8-10.8)
[2024-10-02 16:04] LABS: ALT (SGPT) 47 U/L (0-35); AST (SGOT) 52 U/L (14-36); Albumin 4.1 g/dl (3.5-5.0); Alkaline Phosphatase 134 U/L (38-126); Blood Urea Nitrogen 33 mg/dl (7-17); Calcium 9.5 mg/dl (8.4-10.2); Carbon Dioxide 27 mmol/L (22-30); Chloride 103 mmol/L (98-107); Direct Bilirubin 0.3 mg/dl (0.0-0.4); Glucose 82 mg/dl (70-99); Iron 72 ug/dl (37-170); Sodium 137 mmol/L (135-145); Total Bilirubin 0.6 mg/dl (0.2-1.3); Total Protein 6.6 g/dl (6.3-8.2); eGFR 32.81
[2024-10-02 16:13] LABS: Percent Saturation 26 % (20-50); Total Iron Binding Capacity 273 ug/dl (265-497)
[2024-10-02 16:37] LABS: Ferritin 97.7 ng/ml (11.1-264.0)
[2024-10-02 17:14] LABS: CEA 4.87 ng/ml
== END ==
LOC: REG 14:42
PROVIDERS: ATTENDING PHYSICIAN Internal Medicine Hematology & Oncology; FAMILY PHYSICIAN Family Medicine; OTHER PHYSICIAN Internal Medicine Cardiovascular Disease; OTHER PHYSICIAN Surgery
DX: C20 Malignant neoplasm of rectum (principal); I48.0 Paroxysmal atrial fibrillation
CPT/HCPCS: 36415; 80053; 82248; 82378; 82728; 83540; 83550; 85025; 86850; 86900; 86901

== ENCOUNTER → 2024-10-29 10:58 | Outpatient (REF) | payer MEDICARE, SELFPAY | LOC: RCS 10:58 | PROVIDERS: ATTENDING PHYSICIAN Internal Medicine Cardiovascular Disease; FAMILY PHYSICIAN Family Medicine | DX: I48.0 Paroxysmal atrial fibrillation (principal) | CPT/HCPCS: 93225; 93226 ==

== ENCOUNTER → 2024-11-09 16:37 | Outpatient (REF) | payer MEDICARE, SELFPAY ==
[2024-11-09 17:18] LABS: % Basophils 0.6 % (0-2); % Immature Granulocytes 0.6 % (0-0.5); % Monocytes 7.2 % (1.7-9.3); % Neutrophils 81.6 % (42.2-75.2); Absolute Eosinophils 0.1 10^3/uL (0-0.7); Absolute Lymphocytes 0.4 10^3/uL (1.2-3.4); Absolute Monocytes 0.4 10^3/uL (0.1-0.6); Hematocrit 23.6 % (37.0-47.0); Hemoglobin 7.7 g/dL (12.0-16.0); Mean Corp Hgb Conc. 32.6 g/dL (33.0-37.0); Mean Corpuscular Hgb 32.5 pg (27.0-31.0); Mean Corpuscular Volume 99.6 fL (81.0-99.0); Mean Platelet Volume 9.7 fL (7.4-10.4); Nucleated Red Blood Cells % 0 %; Platelet Count 198 10^3/uL (130-400); Red Blood Cell Count 2.37 10^6/uL (4.20-5.40); Red Cell Dist. Width 15.4 % (11.5-14.5); White Blood Cell Count 4.9 10^3/uL (4.8-10.8)
[2024-11-09 17:28] LABS: Iron 84 ug/dl (37-170)
[2024-11-09 17:37] LABS: Percent Saturation 29 % (20-50); Total Iron Binding Capacity 288 ug/dl (265-497)
[2024-11-09 18:04] LABS: Ferritin 85.9 ng/ml (11.1-264.0)
== END ==
LOC: REG 16:37
PROVIDERS: ATTENDING PHYSICIAN Internal Medicine Hematology & Oncology; FAMILY PHYSICIAN Family Medicine; OTHER PHYSICIAN Internal Medicine Cardiovascular Disease; REFERRING PHYSICIAN Surgery
DX: C20 Malignant neoplasm of rectum (principal); I50.30 Unspecified diastolic (congestive) heart failure
CPT/HCPCS: 36415; 82728; 83540; 83550; 85025

== ENCOUNTER 2024-11-13 11:22 | Outpatient (RCR) | payer MEDICARE, SELFPAY ==
[2024-11-13 12:14] VITALS: BP 149/51
[2024-11-13 12:31] VITALS: BP 137/45
[2024-11-13 14:22] VITALS: BP 132/53
== END 2024-12-05 23:59 | disposition home or self-care (01) ==
LOC: OID 11:22
PROVIDERS: ATTENDING PHYSICIAN Nurse Practitioner Adult Health; FAMILY PHYSICIAN Family Medicine
DX: C20 Malignant neoplasm of rectum (principal)
CPT/HCPCS: 36415; 36430; 86850; 86900; 86901; 86920; P9016

== ENCOUNTER → 2024-12-07 17:01 | Outpatient (REF) | payer MEDICARE, SELFPAY ==
[2024-12-07 17:30] LABS: % Basophils 0.8 % (0-2); % Eosinophils 1.3 % (0-6); % Immature Granulocytes 0.5 % (0-0.5); % Lymphocytes 10.1 % (20.5-51.1); % Monocytes 6.7 % (1.7-9.3); % Neutrophils 80.6 % (42.2-75.2); Absolute Eosinophils 0.1 10^3/uL (0-0.7); Absolute Lymphocytes 0.4 10^3/uL (1.2-3.4); Absolute Monocytes 0.3 10^3/uL (0.1-0.6); Absolute Neutrophils 3.1 10^3/uL (1.4-6.5); Hematocrit 22.3 % (37.0-47.0); Hemoglobin 7.2 g/dL (12.0-16.0); Mean Corp Hgb Conc. 32.3 g/dL (33.0-37.0); Mean Corpuscular Hgb 33.3 pg (27.0-31.0); Mean Corpuscular Volume 103.2 fL (81.0-99.0); Mean Platelet Volume 9.5 fL (7.4-10.4); Nucleated Red Blood Cells % 0 %; Platelet Count 145 10^3/uL (130-400); Red Blood Cell Count 2.16 10^6/uL (4.20-5.40); Red Cell Dist. Width 18.4 % (11.5-14.5); White Blood Cell Count 3.9 10^3/uL (4.8-10.8)
[2024-12-07 17:46] LABS: Iron 113 ug/dl (37-170)
[2024-12-07 17:56] LABS: Percent Saturation 34 % (20-50); Total Iron Binding Capacity 329 ug/dl (265-497)
[2024-12-07 18:26] LABS: Ferritin 90.9 ng/ml (11.1-264.0)
== END ==
LOC: REG 17:01
PROVIDERS: ATTENDING PHYSICIAN Internal Medicine Hematology & Oncology; FAMILY PHYSICIAN Family Medicine; OTHER PHYSICIAN Internal Medicine Cardiovascular Disease; REFERRING PHYSICIAN Surgery
DX: C20 Malignant neoplasm of rectum (principal)
CPT/HCPCS: 36415; 82728; 83540; 83550; 85025

== ENCOUNTER → 2024-12-16 12:39 | Outpatient (REF) | payer MEDICARE, SELFPAY ==
[2024-12-16 13:34] LABS: Hematocrit 21.9 % (37.0-47.0); Mean Corpuscular Hgb 33.2 pg (27.0-31.0); Mean Corpuscular Volume 103.8 fL (81.0-99.0); Mean Platelet Volume 9.4 fL (7.4-10.4); Platelet Count 139 10^3/uL (130-400); Red Blood Cell Count 2.11 10^6/uL (4.20-5.40); Red Cell Dist. Width 17.7 % (11.5-14.5); White Blood Cell Count 3.2 10^3/uL (4.8-10.8)
[2024-12-16 14:20] LABS: ALT (SGPT) 33 U/L (0-35); AST (SGOT) 48 U/L (14-36); Albumin 3.9 g/dl (3.5-5.0); Alkaline Phosphatase 111 U/L (38-126); Blood Urea Nitrogen 23 mg/dl (7-17); Calcium 9.2 mg/dl (8.4-10.2); Carbon Dioxide 25 mmol/L (22-30); Chloride 111 mmol/L (98-107); Glucose 81 mg/dl (70-99); Potassium 4.7 mmol/L (3.5-5.1); Sodium 142 mmol/L (135-145); Total Bilirubin 0.5 mg/dl (0.2-1.3); Total Protein 6.7 g/dl (6.3-8.2); eGFR 51.43
[2024-12-16 14:28] LABS: NT-proBNP 2810 pg/ml
== END ==
LOC: SDSPAT 12:39
PROVIDERS: Physician Assistant Medical; ATTENDING PHYSICIAN Internal Medicine Cardiovascular Disease; FAMILY PHYSICIAN Family Medicine
DX: I48.0 Paroxysmal atrial fibrillation (principal); D64.9 Anemia, unspecified
CPT/HCPCS: 80053; 83880; 85027; 93005

== ENCOUNTER 2024-12-21 08:35 | Outpatient (RCR) | payer MEDICARE, SELFPAY ==
[2024-12-21] VITALS (8 sets, daily range): BP systolic 119–139; BP diastolic 50–66
[2024-12-21] MEDS: LASIX 40 MG IV (12:42)
== END 2025-01-04 23:59 | disposition home or self-care (01) ==
LOC: OID 08:35
PROVIDERS: ATTENDING PHYSICIAN Nurse Practitioner Adult Health; FAMILY PHYSICIAN Family Medicine
DX: C20 Malignant neoplasm of rectum (principal); D50.9 Iron deficiency anemia, unspecified; R06.02 Shortness of breath; Z79.01 Long term (current) use of anticoagulants
CPT/HCPCS: 36430; 86850; 86900; 86901; 86920; P9016

== ENCOUNTER 2024-12-29 06:58 | Day surgery (SDC) | payer MEDICARE, SELFPAY ==
[2024-12-16 12:50] VITALS: BMI 27.3
[2024-12-29 07:39] VITALS: BMI 26.7
== END 2024-12-29 09:16 | disposition home or self-care (01) ==
LOC: CATH 06:58
PROVIDERS: ATTENDING PHYSICIAN Internal Medicine Cardiovascular Disease; FAMILY PHYSICIAN Family Medicine
DX: Z45.09 Encounter for adjustment and management of other cardiac device (principal); I48.21 Permanent atrial fibrillation; I08.3 Combined rheumatic disorders of mitral, aortic and tricuspid valves; I12.9 Hypertensive chronic kidney disease with stage 1 through stage 4 chronic kidney disease, or unspecified chronic kidney disease; N18.30 Chronic kidney disease, stage 3 unspecified; Z85.048 Personal history of other malignant neoplasm of rectum, rectosigmoid junction, and anus; D64.9 Anemia, unspecified; I44.7 Left bundle-branch block, unspecified; E05.90 Thyrotoxicosis, unspecified without thyrotoxic crisis or storm; K74.60 Unspecified cirrhosis of liver; Z87.891 Personal history of nicotine dependence; Z95.2 Presence of prosthetic heart valve; Z79.01 Long term (current) use of anticoagulants
CPT/HCPCS: 93312; 93320; 93325

== ENCOUNTER → 2025-01-11 13:33 | Outpatient (REF) | payer MEDICARE, SELFPAY ==
[2025-01-11 14:18] LABS: Hematocrit 27.1 % (37.0-47.0); Hemoglobin 8.6 g/dL (12.0-16.0); Mean Corp Hgb Conc. 31.7 g/dL (33.0-37.0); Mean Corpuscular Volume 98.2 fL (81.0-99.0); Nucleated Red Blood Cells % 0 %; Platelet Count 114 10^3/uL (130-400); Red Cell Dist. Width 16.3 % (11.5-14.5)
[2025-01-11 14:49] LABS: Iron 114 ug/dl (37-170)
[2025-01-11 14:58] LABS: Total Iron Binding Capacity 359 ug/dl (265-497)
[2025-01-11 15:17] LABS: CEA 17.4 ng/ml
[2025-01-11 15:24] LABS: Ferritin 61.2 ng/ml (11.1-264.0)
== END ==
LOC: REG 13:33
PROVIDERS: ATTENDING PHYSICIAN Internal Medicine Hematology & Oncology; FAMILY PHYSICIAN Family Medicine
DX: C20 Malignant neoplasm of rectum (principal); I50.30 Unspecified diastolic (congestive) heart failure
CPT/HCPCS: 36415; 82378; 82728; 83540; 83550; 85025

== ENCOUNTER → 2025-01-19 15:06 | Outpatient (REF) | payer MEDICARE, SELFPAY ==
[2025-01-19 16:05] LABS: Hematocrit 27.6 % (37.0-47.0); Hemoglobin 9.0 g/dL (12.0-16.0); Mean Corp Hgb Conc. 32.6 g/dL (33.0-37.0); Mean Corpuscular Volume 98.6 fL (81.0-99.0); Nucleated Red Blood Cells % 0 %; Platelet Count 121 10^3/uL (130-400); Red Cell Dist. Width 16.3 % (11.5-14.5)
[2025-01-19 16:08] LABS: ALT (SGPT) 21 U/L (0-35); AST (SGOT) 32 U/L (14-36); Albumin 4.6 g/dl (3.5-5.0); Alkaline Phosphatase 83 U/L (38-126); Blood Urea Nitrogen 27 mg/dl (7-17); Calcium 9.8 mg/dl (8.4-10.2); Carbon Dioxide 27 mmol/L (22-30); Chloride 104 mmol/L (98-107); Glucose 79 mg/dl (70-99); Potassium 4.7 mmol/L (3.5-5.1); Sodium 137 mmol/L (135-145); Total Protein 7.3 g/dl (6.3-8.2); eGFR 46.33
[2025-01-19 16:26] LABS: Free T3 2.37 pg/ml (2.77-5.27)
[2025-01-19 16:40] LABS: TSH 11.90 uIU/ml (0.47-4.68)
== END ==
LOC: REG 15:06
PROVIDERS: ATTENDING PHYSICIAN Internal Medicine Endocrinology, Diabetes & Metabolism; FAMILY PHYSICIAN Family Medicine
DX: E05.90 Thyrotoxicosis, unspecified without thyrotoxic crisis or storm (principal)
CPT/HCPCS: 36415; 80053; 84439; 84443; 84481; 85025

== ENCOUNTER → 2025-02-08 11:25 | Outpatient (REF) | payer MEDICARE, SELFPAY ==
[2025-02-08 12:23] LABS: Hematocrit 29.5 % (37.0-47.0); Hemoglobin 9.3 g/dL (12.0-16.0); Mean Corp Hgb Conc. 31.5 g/dL (33.0-37.0); Mean Corpuscular Volume 99.0 fL (81.0-99.0); Nucleated Red Blood Cells % 0 %; Platelet Count 126 10^3/uL (130-400); Red Cell Dist. Width 15.6 % (11.5-14.5)
[2025-02-08 12:49] LABS: Iron 52 ug/dl (37-170)
[2025-02-08 12:59] LABS: Total Iron Binding Capacity 319 ug/dl (265-497)
[2025-02-08 13:25] LABS: Ferritin 62.0 ng/ml (11.1-264.0)
== END ==
LOC: REG 11:25
PROVIDERS: ATTENDING PHYSICIAN Internal Medicine Hematology & Oncology; FAMILY PHYSICIAN Family Medicine; OTHER PHYSICIAN Internal Medicine Cardiovascular Disease; OTHER PHYSICIAN Surgery
DX: C20 Malignant neoplasm of rectum (principal); D50.0 Iron deficiency anemia secondary to blood loss (chronic)
CPT/HCPCS: 36415; 82728; 83540; 83550; 85025

== ENCOUNTER 2025-03-02 07:16 | Outpatient (RCR) | payer MEDICARE, SELFPAY | END 2025-03-02 23:59 | disposition home or self-care (01) | LOC: RPT 07:16 | PROVIDERS: ATTENDING PHYSICIAN Internal Medicine Hematology & Oncology; FAMILY PHYSICIAN Family Medicine | DX: C20 Malignant neoplasm of rectum (principal); D50.0 Iron deficiency anemia secondary to blood loss (chronic); Z73.6 Limitation of activities due to disability; M62.81 Muscle weakness (generalized); R20.0 Anesthesia of skin | CPT/HCPCS: 97163; 97530 ==

== ENCOUNTER → 2025-03-15 16:23 | Outpatient (REF) | payer MEDICARE, SELFPAY ==
[2025-03-15 17:14] LABS: Hematocrit 29.3 % (37.0-47.0); Hemoglobin 9.6 g/dL (12.0-16.0); Mean Corp Hgb Conc. 32.8 g/dL (33.0-37.0); Mean Corpuscular Volume 94.2 fL (81.0-99.0); Nucleated Red Blood Cells % 0 %; Platelet Count 162 10^3/uL (130-400); Red Cell Dist. Width 14.3 % (11.5-14.5)
[2025-03-15 17:44] LABS: Iron 60 ug/dl (37-170)
[2025-03-15 17:53] LABS: Total Iron Binding Capacity 273 ug/dl (265-497)
[2025-03-15 21:48] LABS: Ferritin 80.3 ng/ml (11.1-264.0)
== END ==
LOC: REG 16:23
PROVIDERS: ATTENDING PHYSICIAN Internal Medicine Hematology & Oncology; FAMILY PHYSICIAN Family Medicine; OTHER PHYSICIAN Internal Medicine Cardiovascular Disease; OTHER PHYSICIAN Surgery
DX: C20 Malignant neoplasm of rectum (principal); D50.0 Iron deficiency anemia secondary to blood loss (chronic)
CPT/HCPCS: 36415; 82728; 83540; 83550; 85025

== ENCOUNTER → 2025-04-13 13:43 | Outpatient (REF) | payer MEDICARE, SELFPAY ==
[2025-04-13 15:10] LABS: Hematocrit 30.4 % (37.0-47.0); Hemoglobin 10.1 g/dL (12.0-16.0); Mean Corp Hgb Conc. 33.2 g/dL (33.0-37.0); Mean Corpuscular Volume 95.0 fL (81.0-99.0); Nucleated Red Blood Cells % 0 %; Platelet Count 161 10^3/uL (130-400); Red Cell Dist. Width 14.6 % (11.5-14.5)
[2025-04-13 15:37] LABS: ALT (SGPT) 19 U/L (0-35); AST (SGOT) 27 U/L (14-36); Albumin 4.2 g/dl (3.5-5.0); Alkaline Phosphatase 72 U/L (38-126); Blood Urea Nitrogen 25 mg/dl (7-17); Calcium 9.8 mg/dl (8.4-10.2); Carbon Dioxide 24 mmol/L (22-30); Chloride 111 mmol/L (98-107); Glucose 81 mg/dl (70-99); Iron 94 ug/dl (37-170); Potassium 4.2 mmol/L (3.5-5.1); Sodium 142 mmol/L (135-145); Total Protein 7.3 g/dl (6.3-8.2); eGFR > 60.00
[2025-04-13 15:45] LABS: Total Iron Binding Capacity 267 ug/dl (265-497)
[2025-04-13 15:51] LABS: Free T3 3.44 pg/ml (2.77-5.27)
[2025-04-13 16:05] LABS: TSH 25.00 uIU/ml (0.47-4.68)
[2025-04-13 16:09] LABS: Ferritin 82.2 ng/ml (11.1-264.0)
== END ==
LOC: REG 13:43
PROVIDERS: ATTENDING PHYSICIAN Internal Medicine Endocrinology, Diabetes & Metabolism; FAMILY PHYSICIAN Family Medicine; REFERRING PHYSICIAN Internal Medicine Hematology & Oncology
DX: E05.90 Thyrotoxicosis, unspecified without thyrotoxic crisis or storm (principal); C20 Malignant neoplasm of rectum; D50.0 Iron deficiency anemia secondary to blood loss (chronic)
CPT/HCPCS: 36415; 80053; 82728; 83540; 83550; 84439; 84443; 84481; 85025

== ENCOUNTER 2025-05-03 09:27 | Outpatient (RCR) | payer MEDICARE, SELFPAY | END 2025-05-03 23:59 | disposition home or self-care (01) | LOC: RPT 09:27 | PROVIDERS: ATTENDING PHYSICIAN Internal Medicine Hematology & Oncology; FAMILY PHYSICIAN Family Medicine | DX: C20 Malignant neoplasm of rectum (principal); D50.0 Iron deficiency anemia secondary to blood loss (chronic); Z73.6 Limitation of activities due to disability; M62.81 Muscle weakness (generalized); R20.0 Anesthesia of skin | CPT/HCPCS: 97112; 97140; 97530 ==

== ENCOUNTER 2025-05-25 06:11 | Day surgery (SDC) | payer MEDICARE, SELFPAY | END 2025-05-25 09:24 | disposition home or self-care (01) | LOC: GI 06:11 | PROVIDERS: ATTENDING PHYSICIAN Surgery | DX: Z12.11 Encounter for screening for malignant neoplasm of colon (principal); Z85.048 Personal history of other malignant neoplasm of rectum, rectosigmoid junction, and anus; K63.89 Other specified diseases of intestine | CPT/HCPCS: G0105 ==

== ENCOUNTER 2025-05-31 12:32 | Outpatient (RCR) | payer MEDICARE, SELFPAY | END 2025-05-31 23:59 | disposition home or self-care (01) | LOC: RPT 12:32 | PROVIDERS: ATTENDING PHYSICIAN Internal Medicine Hematology & Oncology; FAMILY PHYSICIAN Family Medicine | DX: C20 Malignant neoplasm of rectum (principal); D50.0 Iron deficiency anemia secondary to blood loss (chronic); Z73.6 Limitation of activities due to disability; M62.81 Muscle weakness (generalized); R20.0 Anesthesia of skin | CPT/HCPCS: 36415; 82728; 83540; 83550; 85025; 97014; 97112; 97140; 97530 ==

== ENCOUNTER 2025-06-29 12:29 | Outpatient (RCR) | payer MEDICARE, SELFPAY | END 2025-07-06 23:59 | disposition home or self-care (01) | LOC: RPT 12:29 | PROVIDERS: ATTENDING PHYSICIAN Internal Medicine Hematology & Oncology; FAMILY PHYSICIAN Family Medicine | DX: C20 Malignant neoplasm of rectum (principal); D50.0 Iron deficiency anemia secondary to blood loss (chronic); Z73.6 Limitation of activities due to disability; M62.81 Muscle weakness (generalized); R20.0 Anesthesia of skin; R15.9 Full incontinence of feces; R15.1 Fecal smearing; N39.41 Urge incontinence | CPT/HCPCS: 36415; 82728; 83540; 83550; 85025; 97014; 97112; 97140; 97530 ==